=== PATIENT | female | born 1985 | race Caucasian/White ===

== ENCOUNTER 2021-05-18 22:40 | Inpatient (IN) | payer MEDICARE, MEDICAID, SELFPAY ==
--- NOTE | 2021-05-18 | ECG_ITS ---
Test Reason : OVERDOSE Blood Pressure : / mmHG Vent. Rate : 070 BPM Atrial Rate : 070 BPM P-R Int : 198 ms QRS Dur : 094 ms QT Int : 384 ms P-R-T Axes : 040 030 023 degrees QTc Int : 414 ms Normal sinus rhythm RSR' or QR pattern in V1 suggests right ventricular conduction delay Otherwise normal ECG When compared with ECG of 16-FEB-2019 22:33, T wave amplitude has increased in Anterolateral leads Heart rate has decreased Referred By: Generic ED Physician Electronically Signed By:CANDY ISBELL MD
[2021-05-18 22:43] VITALS: BP 220/140; PULSE 78; PULSE 89; RESP 22; TEMP 36.6; O2SAT 98; BMI 40.2
--- NOTE | 2021-05-18 23:40 | ED.OVERDOSE ---
HPI - Overdose General Chief Complaint: Overdose <ARUNA Soriano Last Filed: 05/19/21 02:18> Stated Complaint: OD/SI <ARUNA Soriano Last Filed: 05/19/21 02:18> Time Seen by Provider: 05/18/21 23:38 <ARUNA Soriano Last Filed: 05/19/21 02:18> Source: EMS <ARUNA Soriano Last Filed: 05/19/21 02:18> Mode of arrival: EMS <ARUNA Soriano Last Filed: 05/19/21 02:18> Limitations: altered mental status <ARUNA Soriano Last Filed: 05/19/21 02:18> History of Present Illness HPI Narrative: Patient is now altered, but she came in alert, and stated she took 15 tablets of 1 mg clonazepam, 12 tablets of 0.3 clonidine, and 20 tablets of 4 mg 10 as a John. She may have taken it 1-2 hours prior to arrival. Patient was altered and I could not get any history from her during my exam <ARUNA Soriano Last Filed: 05/19/21 02:18> MD complaint: intentional overdose <ARUNA Soriano Last Filed: 05/19/21 02:18> Onset (ago): unknown <ARUNA Soriano Last Filed: 05/19/21 02:18> Related Data Home Medications: Previous Rx's Medication Instructions Recorded oxybutynin chloride 10 mg 10 mg PO DAILY 90 Days #90 tab 07/21/20 tablet,extended release 24 hr <ARUNA Soriano Last Filed: 05/19/21 02:18> Allergies/Adverse Reactions: Allergies Allergy/AdvReac Type Severity Reaction Status Date / Time Sulfa (Sulfonamide Allergy Unknown RASH Unverified 03/17/20 17:13 Antibiotics) [SULFA (SULFONAMIDE ANTIBIOTICS)] Sulfa drugs Allergy Unknown Uncoded 08/04/19 00:00 <ARUNA Soriano Last Filed: 05/19/21 02:18> Review of Systems Review of Systems: Patient is obtunded <ARUNA Soriano Last Filed: 05/19/21 02:18> Yes Unobtainable due to mental status <ARUNA Soriano - Last Filed: 05/19/21 02:18> PMFSH Social History Social History: Social History Patient Tobacco Use Status: Current everyday Tobacco user Use of substances other than those prescribed or required for medical reasons: No Substance Use Type: Marijuana Substance Use Frequency: Daily Advance Directives: No Advance Directives Information Provided: No <ARUNA Soriano - Last Filed: 05/19/21 02:18> Physical Exam Vital Signs: Vital Signs: Last Vital Signs Temp 98 F 05/19/21 00:00 Pulse 60 05/19/21 08:11 Resp 18 05/19/21 03:41 BP 130/79 05/19/21 03:41 Pulse Ox 92 05/19/21 08:11 Body Mass Index 40.2 <ARUNA Soriano - Last Filed: 05/19/21 02:18> Vital Signs: Last Vital Signs Temp 98 F 05/19/21 00:00 Pulse 60 05/19/21 08:11 Resp 18 05/19/21 03:41 BP 130/79 05/19/21 03:41 Pulse Ox 92 05/19/21 08:11 Body Mass Index 40.2 <Bernard Cervantes MD - Last Filed: 05/19/21 08:41> Const: General: patient obtunded <ARUNA Soriano - Last Filed: 05/19/21 02:18> Nutritional Appearance: obese morbidly obese <ARUNA Soriano - Last Filed: 05/19/21 02:18> Orientation/consciousness: patient obtunded <ARUNA Soriano - Last Filed: 05/19/21 02:18> Limitations: altered mental status <ARUNA Soriano - Last Filed: 05/19/21 02:18> HENMT: Head: Yes normal to inspection <ARUNA Soriano - Last Filed: 05/19/21 02:18> Mouth: Normal oral and palatal mucosa present <ARUNA Soriano - Last Filed: 05/19/21 02:18> Eyes: Other: Pupils are sluggish, eyes are fixed. <ARUNA Soriano - Last Filed: 05/19/21 02:18> Chest: Chest palpation & inspection: normal inspection of the chest <ARUNA Soriano - Last Filed: 05/19/21 02:18> Resp: Effort & Inspection: normal respiratory effort <ARUNA Soriano - Last Filed: 05/19/21 02:18> Auscultation: clear to auscultation bilaterally, no crackles, no rales, no rhonchi and no wheezes <ARUNA Soriano - Last Filed: 05/19/21 02:18> Cardio: Rate: regular rate <ARUNA Soriano - Last Filed: 05/19/21 02:18> Rhythm: regular rhythm <ARUNA Soriano - Last Filed: 05/19/21 02:18> GI: Palpation (GI): Soft to palpation <ARUNA Sroiano - Last Filed: 05/19/21 02:18> Percussion: Yes normal to percussion <ARUNA Soriano - Last Filed: 05/19/21 02:18> Skin: General skin exam: no rashes or lesions noted <ARUNA Soriano - Last Filed: 05/19/21 02:18> Neuro: General: patient obtunded <ARUNA Soriano - Last Filed: 05/19/21 02:18> Pupils: Sluggish: bilateral <ARUNA Soriano Last Filed: 05/19/21 02:18> Course Course Course Narrative: 35-year-old female presents with overdose on clonazepam, clonidine, and tizanidine. On my exam, patient is having periods of apnea, has sluggish pupils, does not respond to a sternal rub. Discussed with poison control, who stated the both clonidine and tizanidine can both cause hypotension. Patient may become bradycardic from clonidine. They suggested trying Narcan, which we did to no effect. Stated patient should be on cardiac monitoring, and if she decompensates we could intubate her. Patient's EKG shows normal sinus, patient has stable vitals. Labs show patient has a glucose of 4 await, potassium 5.8. Gave 10 units of insulin. Patient is a leukocytosis of 18, pH on VBG of 7.48, negative for EtOH, elevated liver function tests. Salicylate and acetaminophen levels still pending. Signed patient out to Dr. Cervantes. <ARUNA Soriano Last Filed: 05/19/21 02:18> MDM - Overdose Lab Data Result diagrams: : 05/19/21 00:16 05/19/21 00:56 <ARUNA Soriano - Last Filed: 05/19/21 02:18> Labs: Lab Results 05/19/21 05/19/21 05/19/21 Range/Units 00:16 00:19 00:34 WBC 18.0 H (4.8-10.8) X10*3/uL RBC 4.98 (4.20-5.50) X10*6/uL Hgb 15.8 (12.0-16.0) g/dl Hct 46.3 (37.0-47.0) % MCV 93.0 (80.0-98.0) fL MCH 31.7 (27.0-33.0) pg MCHC 34.1 (31.0-35.0) g/dl RDW 12.9 (11.0-16.0) % Plt Count 273 (160-400) X10*3/uL MPV 10.3 (9.4-12.3) fL Immature Gran % (Auto) 1.7 H (0.0-0.4) % Neut % (Auto) 82.2 H (45-73) % Lymph % (Auto) 10.5 L (20-40) % [place] % (Auto) 5.0 (2-11) % Eos % (Auto) 0.2 (0-4) % Baso % (Auto) 0.4 (0-2) % Lymph # (Auto) 1.9 (1.2-4.9) X10*3/uL [place] # (Auto) 0.9 (0.1-1.2) X10*3/uL Eos # (Auto) 0.0 (0.0-0.4) X10*3/uL Baso # (Auto) 0.1 (0.0-0.2) X10*3/uL Abs Immat Gran (auto) 0.31 H (0.00-0.03) X10*3/uL Absolute Neuts (auto) 14.8 H (2.0-8.3) x10*3/uL Absolute Nucleated RBC 0.000 (0.0-0.012) X10*3/uL Nucleated RBC % (auto) 0.0 (0.0-0.2) /100WBC VBG pH 7.48 H (7.32-7.43) VBG pCO2 27 mmHg VBG pO2 70 mmHg VBG HCO3 20 L (22-26) mmol/L VBG O2 Saturation 95.0 % VBG Base Excess -1.0 mmol/L Sodium (135-145) mmol/L Potassium (3.3-5.1) mmol/L Chloride (96-108) mmol/L Carbon Dioxide (22-29) mmol/L Anion Gap (12-20) BUN (9-16) mg/dL Creatinine (0.5-1.4) mg/dL Estim Creat Clear Calc Estimated GFR POC Glucose (60-115) mg/dL Random Glucose (60-115) mg/dL Calcium (8.4-10.2) mg/dL Total Bilirubin (0.0-1.0) mg/dL AST (5-31) U/L ALT (0-31) U/L Alkaline Phosphatase (39-117) U/L Total Protein (6.5-8.0) g/dL Albumin (3.5-5.0) g/dL Urine Color Urine Appearance Urine pH (5.0-8.0) Ur Specific [place] (1.005-1.025) Urine Protein (NEG-TRACE) MG/DL Urine Glucose (UA) (NEG) MG/DL Urine Ketones (NEG) MG/DL Urine Blood (NEG) Urine Nitrite (NEG) Ur Leukocyte Esterase (NEG) Urine RBC (0) /HPF Urine WBC (0-4) /HPF Ur Squamous Epith Cells /LPF Urine Bacteria /LPF Urine Test (NEGATIVE) Salicylates (15-30) mg/dL Urine Opiates Screen (Not Detect) Urine Fentanyl Screen (Not Detect) Acetaminophen (<30) mcg/mL Ur Barbiturates Screen (Not Detect) Ur Phencyclidine Scrn (Not Detect) Ur Amphetamines Screen (Not Detect) U Benzodiazepines Scrn (Not Detect) Urine Cocaine Screen (Not Detect) U Marijuana (THC) Screen (Not Detect) Ethyl Alcohol < 10 mg/dL Acetone, Qual (Negative) 05/19/21 05/19/21 05/19/21 Range/Units 00:56 03:19 03:19 WBC (4.8-10.8) X10*3/uL RBC (4.20-5.50) X10*6/uL Hgb (12.0-16.0) g/dl Hct (37.0-47.0) % MCV (80.0-98.0) fL MCH (27.0-33.0) pg MCHC (31.0-35.0) g/dl RDW (11.0-16.0) % Plt Count (160-400) X10*3/uL MPV (9.4-12.3) fL Immature Gran % (Auto) (0.0-0.4) % Neut % (Auto) (45-73) % Lymph % (Auto) (20-40) % [place] % (Auto) (2-11) % Eos % (Auto) (0-4) % Baso % (Auto) (0-2) % Lymph # (Auto) (1.2-4.9) X10*3/uL [place] # (Auto) (0.1-1.2) X10*3/uL Eos # (Auto) (0.0-0.4) X10*3/uL Baso # (Auto) (0.0-0.2) X10*3/uL Abs Immat Gran (auto) (0.00-0.03) X10*3/uL Absolute Neuts (auto) (2.0-8.3) x10*3/uL Absolute Nucleated RBC (0.0-0.012) X10*3/uL Nucleated RBC % (auto) (0.0-0.2) /100WBC VBG pH (7.32-7.43) VBG pCO2 mmHg VBG pO2 mmHg VBG HCO3 (22-26) mmol/L VBG O2 Saturation % VBG Base Excess mmol/L Sodium 132 L (135-145) mmol/L Potassium 5.8 H (3.3-5.1) mmol/L Chloride 102 (96-108) mmol/L Carbon Dioxide 20 L (22-29) mmol/L Anion Gap 16 (12-20) BUN 8 L (9-16) mg/dL Creatinine 0.99 (0.5-1.4) mg/dL Estim Creat Clear Calc 86.7 Estimated GFR > 60 POC Glucose (60-115) mg/dL Random Glucose 408 H* (60-115) mg/dL Calcium 8.5 (8.4-10.2) mg/dL Total Bilirubin 0.7 (0.0-1.0) mg/dL AST 113 H (5-31) U/L ALT 115 H (0-31) U/L Alkaline Phosphatase 74 (39-117) U/L Total Protein 7.1 (6.5-8.0) g/dL Albumin 4.2 (3.5-5.0) g/dL Urine Color YELLOW Urine Appearance CLEAR Urine pH 7.0 (5.0-8.0) Ur Specific [place] 1.015 (1.005-1.025) Urine Protein 1+ H (NEG-TRACE) MG/DL Urine Glucose (UA) >=1000 H (NEG) MG/DL Urine Ketones 15 (NEG) MG/DL Urine Blood NEG (NEG) Urine Nitrite NEG (NEG) Ur Leukocyte Esterase NEG (NEG) Urine RBC 1-4 (0) /HPF Urine WBC 5-9 H (0-4) /HPF Ur Squamous Epith Cells 1+ /LPF Urine Bacteria 2+ /LPF Urine Test (NEGATIVE) Salicylates < 5.0 L (15-30) mg/dL Urine Opiates Screen Not Detected (Not Detect) Urine Fentanyl Screen Not Detected (Not Detect) Acetaminophen < 1 (<30) mcg/mL Ur Barbiturates Screen Not Detected (Not Detect) Ur Phencyclidine Scrn Not Detected (Not Detect) Ur Amphetamines Screen Not Detected (Not Detect) U Benzodiazepines Scrn Not Detected (Not Detect) Urine Cocaine Screen Not Detected (Not Detect) U Marijuana (THC) Screen POSITIVE H (Not Detect) Ethyl Alcohol mg/dL Acetone, Qual Negative (Negative) 05/19/21 05/19/21 Range/Units 03:19 03:31 WBC (4.8-10.8) X10*3/uL RBC (4.20-5.50) X10*6/uL Hgb (12.0-16.0) g/dl Hct (37.0-47.0) % MCV (80.0-98.0) fL MCH (27.0-33.0) pg MCHC (31.0-35.0) g/dl RDW (11.0-16.0) % Plt Count (160-400) X10*3/uL MPV (9.4-12.3) fL Immature Gran % (Auto) (0.0-0.4) % Neut % (Auto) (45-73) % Lymph % (Auto) (20-40) % [place] % (Auto) (2-11) % Eos % (Auto) (0-4) % Baso % (Auto) (0-2) % Lymph # (Auto) (1.2-4.9) X10*3/uL [place] # (Auto) (0.1-1.2) X10*3/uL Eos # (Auto) (0.0-0.4) X10*3/uL Baso # (Auto) (0.0-0.2) X10*3/uL Abs Immat Gran (auto) (0.00-0.03) X10*3/uL Absolute Neuts (auto) (2.0-8.3) x10*3/uL Absolute Nucleated RBC (0.0-0.012) X10*3/uL Nucleated RBC % (auto) (0.0-0.2) /100WBC VBG pH (7.32-7.43) VBG pCO2 mmHg VBG pO2 mmHg VBG HCO3 (22-26) mmol/L VBG O2 Saturation % VBG Base Excess mmol/L Sodium (135-145) mmol/L Potassium (3.3-5.1) mmol/L Chloride (96-108) mmol/L Carbon Dioxide (22-29) mmol/L Anion Gap (12-20) BUN (9-16) mg/dL Creatinine (0.5-1.4) mg/dL Estim Creat Clear Calc Estimated GFR POC Glucose 328 H (60-115) mg/dL Random Glucose (60-115) mg/dL Calcium (8.4-10.2) mg/dL Total Bilirubin (0.0-1.0) mg/dL AST (5-31) U/L ALT (0-31) U/L Alkaline Phosphatase (39-117) U/L Total Protein (6.5-8.0) g/dL Albumin (3.5-5.0) g/dL Urine Color Urine Appearance Urine pH (5.0-8.0) Ur Specific [place] (1.005-1.025) Urine Protein (NEG-TRACE) MG/DL Urine Glucose (UA) (NEG) MG/DL Urine Ketones (NEG) MG/DL Urine Blood (NEG) Urine Nitrite (NEG) Ur Leukocyte Esterase (NEG) Urine RBC (0) /HPF Urine WBC (0-4) /HPF Ur Squamous Epith Cells /LPF Urine Bacteria /LPF Urine Test NEGATIVE (NEGATIVE) Salicylates (15-30) mg/dL Urine Opiates Screen (Not Detect) Urine Fentanyl Screen (Not Detect) Acetaminophen (<30) mcg/mL Ur Barbiturates Screen (Not Detect) Ur Phencyclidine Scrn (Not Detect) Ur Amphetamines Screen (Not Detect) U Benzodiazepines Scrn (Not Detect) Urine Cocaine Screen (Not Detect) U Marijuana (THC) Screen (Not Detect) Ethyl Alcohol mg/dL Acetone, Qual (Negative) <ARUNA Soriano - Last Filed: 05/19/21 02:18> Lab Results 05/19/21 05/19/21 05/19/21 Range/Units 00:16 00:19 00:34 WBC 18.0 H (4.8-10.8) X10*3/uL RBC 4.98 (4.20-5.50) X10*6/uL Hgb 15.8 (12.0-16.0) g/dl Hct 46.3 (37.0-47.0) % MCV 93.0 (80.0-98.0) fL MCH 31.7 (27.0-33.0) pg MCHC 34.1 (31.0-35.0) g/dl RDW 12.9 (11.0-16.0) % Plt Count 273 (160-400) X10*3/uL MPV 10.3 (9.4-12.3) fL Immature Gran % (Auto) 1.7 H (0.0-0.4) % Neut % (Auto) 82.2 H (45-73) % Lymph % (Auto) 10.5 L (20-40) % [place] % (Auto) 5.0 (2-11) % Eos % (Auto) 0.2 (0-4) % Baso % (Auto) 0.4 (0-2) % Lymph # (Auto) 1.9 (1.2-4.9) X10*3/uL [place] # (Auto) 0.9 (0.1-1.2) X10*3/uL Eos # (Auto) 0.0 (0.0-0.4) X10*3/uL Baso # (Auto) 0.1 (0.0-0.2) X10*3/uL Abs Immat Gran (auto) 0.31 H (0.00-0.03) X10*3/uL Absolute Neuts (auto) 14.8 H (2.0-8.3) x10*3/uL Absolute Nucleated RBC 0.000 (0.0-0.012) X10*3/uL Nucleated RBC % (auto) 0.0 (0.0-0.2) /100WBC VBG pH 7.48 H (7.32-7.43) VBG pCO2 27 mmHg VBG pO2 70 mmHg VBG HCO3 20 L (22-26) mmol/L VBG O2 Saturation 95.0 % VBG Base Excess -1.0 mmol/L Sodium (135-145) mmol/L Potassium (3.3-5.1) mmol/L Chloride (96-108) mmol/L Carbon Dioxide (22-29) mmol/L Anion Gap (12-20) BUN (9-16) mg/dL Creatinine (0.5-1.4) mg/dL Estim Creat Clear Calc Estimated GFR POC Glucose (60-115) mg/dL Random Glucose (60-115) mg/dL Calcium (8.4-10.2) mg/dL Total Bilirubin (0.0-1.0) mg/dL AST (5-31) U/L ALT (0-31) U/L Alkaline Phosphatase (39-117) U/L Total Protein (6.5-8.0) g/dL Albumin (3.5-5.0) g/dL Urine Color Urine Appearance Urine pH (5.0-8.0) Ur Specific [place] (1.005-1.025) Urine Protein (NEG-TRACE) MG/DL Urine Glucose (UA) (NEG) MG/DL Urine Ketones (NEG) MG/DL Urine Blood (NEG) Urine Nitrite (NEG) Ur Leukocyte Esterase (NEG) Urine RBC (0) /HPF Urine WBC (0-4) /HPF Ur Squamous Epith Cells /LPF Urine Bacteria /LPF Urine Test (NEGATIVE) Salicylates (15-30) mg/dL Urine Opiates Screen (Not Detect) Urine Fentanyl Screen (Not Detect) Acetaminophen (<30) mcg/mL Ur Barbiturates Screen (Not Detect) Ur Phencyclidine Scrn (Not Detect) Ur Amphetamines Screen (Not Detect) U Benzodiazepines Scrn (Not Detect) Urine Cocaine Screen (Not Detect) U Marijuana (THC) Screen (Not Detect) Ethyl Alcohol < 10 mg/dL Acetone, Qual (Negative) 05/19/21 05/19/21 05/19/21 Range/Units 00:56 03:19 03:19 WBC (4.8-10.8) X10*3/uL RBC (4.20-5.50) X10*6/uL Hgb (12.0-16.0) g/dl Hct (37.0-47.0) % MCV (80.0-98.0) fL MCH (27.0-33.0) pg MCHC (31.0-35.0) g/dl RDW (11.0-16.0) % Plt Count (160-400) X10*3/uL MPV (9.4-12.3) fL Immature Gran % (Auto) (0.0-0.4) % Neut % (Auto) (45-73) % Lymph % (Auto) (20-40) % [place] % (Auto) (2-11) % Eos % (Auto) (0-4) % Baso % (Auto) (0-2) % Lymph # (Auto) (1.2-4.9) X10*3/uL [place] # (Auto) (0.1-1.2) X10*3/uL Eos # (Auto) (0.0-0.4) X10*3/uL Baso # (Auto) (0.0-0.2) X10*3/uL Abs Immat Gran (auto) (0.00-0.03) X10*3/uL Absolute Neuts (auto) (2.0-8.3) x10*3/uL Absolute Nucleated RBC (0.0-0.012) X10*3/uL Nucleated RBC % (auto) (0.0-0.2) /100WBC VBG pH (7.32-7.43) VBG pCO2 mmHg VBG pO2 mmHg VBG HCO3 (22-26) mmol/L VBG O2 Saturation % VBG Base Excess mmol/L Sodium 132 L (135-145) mmol/L Potassium 5.8 H (3.3-5.1) mmol/L Chloride 102 (96-108) mmol/L Carbon Dioxide 20 L (22-29) mmol/L Anion Gap 16 (12-20) BUN 8 L (9-16) mg/dL Creatinine 0.99 (0.5-1.4) mg/dL Estim Creat Clear Calc 86.7 Estimated GFR > 60 POC Glucose (60-115) mg/dL Random Glucose 408 H* (60-115) mg/dL Calcium 8.5 (8.4-10.2) mg/dL Total Bilirubin 0.7 (0.0-1.0) mg/dL AST 113 H (5-31) U/L ALT 115 H (0-31) U/L Alkaline Phosphatase 74 (39-117) U/L Total Protein 7.1 (6.5-8.0) g/dL Albumin 4.2 (3.5-5.0) g/dL Urine Color YELLOW Urine Appearance CLEAR Urine pH 7.0 (5.0-8.0) Ur Specific [place] 1.015 (1.005-1.025) Urine Protein 1+ H (NEG-TRACE) MG/DL Urine Glucose (UA) >=1000 H (NEG) MG/DL Urine Ketones 15 (NEG) MG/DL Urine Blood NEG (NEG) Urine Nitrite NEG (NEG) Ur Leukocyte Esterase NEG (NEG) Urine RBC 1-4 (0) /HPF Urine WBC 5-9 H (0-4) /HPF Ur Squamous Epith Cells 1+ /LPF Urine Bacteria 2+ /LPF Urine Test (NEGATIVE) Salicylates < 5.0 L (15-30) mg/dL Urine Opiates Screen Not Detected (Not Detect) Urine Fentanyl Screen Not Detected (Not Detect) Acetaminophen < 1 (<30) mcg/mL Ur Barbiturates Screen Not Detected (Not Detect) Ur Phencyclidine Scrn Not Detected (Not Detect) Ur Amphetamines Screen Not Detected (Not Detect) U Benzodiazepines Scrn Not Detected (Not Detect) Urine Cocaine Screen Not Detected (Not Detect) U Marijuana (THC) Screen POSITIVE H (Not Detect) Ethyl Alcohol mg/dL Acetone, Qual Negative (Negative) 05/19/21 05/19/21 Range/Units 03:19 03:31 WBC (4.8-10.8) X10*3/uL RBC (4.20-5.50) X10*6/uL Hgb (12.0-16.0) g/dl Hct (37.0-47.0) % MCV (80.0-98.0) fL MCH (27.0-33.0) pg MCHC (31.0-35.0) g/dl RDW (11.0-16.0) % Plt Count (160-400) X10*3/uL MPV (9.4-12.3) fL Immature Gran % (Auto) (0.0-0.4) % Neut % (Auto) (45-73) % Lymph % (Auto) (20-40) % [place] % (Auto) (2-11) % Eos % (Auto) (0-4) % Baso % (Auto) (0-2) % Lymph # (Auto) (1.2-4.9) X10*3/uL [place] # (Auto) (0.1-1.2) X10*3/uL Eos # (Auto) (0.0-0.4) X10*3/uL Baso # (Auto) (0.0-0.2) X10*3/uL Abs Immat Gran (auto) (0.00-0.03) X10*3/uL Absolute Neuts (auto) (2.0-8.3) x10*3/uL Absolute Nucleated RBC (0.0-0.012) X10*3/uL Nucleated RBC % (auto) (0.0-0.2) /100WBC VBG pH (7.32-7.43) VBG pCO2 mmHg VBG pO2 mmHg VBG HCO3 (22-26) mmol/L VBG O2 Saturation % VBG Base Excess mmol/L Sodium (135-145) mmol/L Potassium (3.3-5.1) mmol/L Chloride (96-108) mmol/L Carbon Dioxide (22-29) mmol/L Anion Gap (12-20) BUN (9-16) mg/dL Creatinine (0.5-1.4) mg/dL Estim Creat Clear Calc Estimated GFR POC Glucose 328 H (60-115) mg/dL Random Glucose (60-115) mg/dL Calcium (8.4-10.2) mg/dL Total Bilirubin (0.0-1.0) mg/dL AST (5-31) U/L ALT (0-31) U/L Alkaline Phosphatase (39-117) U/L Total Protein (6.5-8.0) g/dL Albumin (3.5-5.0) g/dL Urine Color Urine Appearance Urine pH (5.0-8.0) Ur Specific [place] (1.005-1.025) Urine Protein (NEG-TRACE) MG/DL Urine Glucose (UA) (NEG) MG/DL Urine Ketones (NEG) MG/DL Urine Blood (NEG) Urine Nitrite (NEG) Ur Leukocyte Esterase (NEG) Urine RBC (0) /HPF Urine WBC (0-4) /HPF Ur Squamous Epith Cells /LPF Urine Bacteria /LPF Urine Test NEGATIVE (NEGATIVE) Salicylates (15-30) mg/dL Urine Opiates Screen (Not Detect) Urine Fentanyl Screen (Not Detect) Acetaminophen (<30) mcg/mL Ur Barbiturates Screen (Not Detect) Ur Phencyclidine Scrn (Not Detect) Ur Amphetamines Screen (Not Detect) U Benzodiazepines Scrn (Not Detect) Urine Cocaine Screen (Not Detect) U Marijuana (THC) Screen (Not Detect) Ethyl Alcohol mg/dL Acetone, Qual (Negative) <Bernard Cervantes MD - Last Filed: 05/19/21 08:41> ECG Data Interpretation: EKG shows normal sinus at a rate of 70, DC interval 190, QRS 94, QTC 414, no ST elevations or depressions no T-wave changes. <ARUNA Soriano - Last Filed: 05/19/21 02:18> Discharge Plan Discharge Clinical Impression: Drug overdose <ARUNA Soriano - Last Filed: 05/19/21 02:18> Prescriptions: No Action oxybutynin chloride 10 mg tablet extended release 24hr 10 mg PO DAILY 90 Days Qty: 90 RF: 2 <ARUNA Soriano - Last Filed: 05/19/21 02:18>
[2021-05-19] VITALS (9 sets, daily range): BP systolic 116–198; BP diastolic 70–112; PULSE 60–110; RESP 14–18; TEMP 36.6–36.8; O2SAT 92–97
--- NOTE | 2021-05-19 00:04 | PC.NURSE ---
Pt. is altered. Initially in and out of consciousness but was arousable to light sternal rub or painful stimuli. Difficulty maintaining awakened state. Now she is not arousable even to a hard sternal rub. Maintaining airway. VSS. Dr. lucas in at bedside evaluating patient. Placed on ETCO2 and supplemental O2.
[2021-05-19] MEDS: 0.9 % Sodium Chloride 1,000 ML 999 ML IV (00:23)
[2021-05-19 00:24] LABS: MANUAL DIFF FLAG NO
[2021-05-19] MEDS: Naloxone HCl Nasal 4 MG SPRAY NOSTRILALT (00:24)
[2021-05-19 00:28] LABS: Venous Blood Gas Refer to POC result
[2021-05-19 00:29] LABS: VBG HCO3 20 mmol/L (22-26); VBG pCO2 27 mmHg; VBG pH 7.48 (7.32-7.43); VBG pO2 70 mmHg
[2021-05-19 00:29] LABS: Basophils Absolute Auto 0.1 X10*3/uL (0.0-0.2); Basophils Percent Auto 0.4 % (0-2); Eosinophils Percent Auto 0.2 % (0-4); Hematocrit 46.3 % (37.0-47.0); Hemoglobin 15.8 g/dl (12.0-16.0); Imm Gran Abs Auto 0.31 X10*3/uL (0.00-0.03); Imm Gran Pct Auto 1.7 % (0.0-0.4); Lymphocytes Absolute Auto 1.9 X10*3/uL (1.2-4.9); Lymphocytes Percent Auto 10.5 % (20-40); Mean Corpuscular HGB Conc 34.1 g/dl (31.0-35.0); Mean Corpuscular Hemoglobin 31.7 pg (27.0-33.0); Mean Platelet Volume 10.3 fL (9.4-12.3); Monocytes Absolute Auto 0.9 X10*3/uL (0.1-1.2); Neutrophils Absolute Auto 14.8 x10*3/uL (2.0-8.3); Neutrophils Percent Auto 82.2 % (45-73); Platelet Count 273 X10*3/uL (160-400); Red Blood Count 4.98 X10*6/uL (4.20-5.50); Red Cell Distribution Width 12.9 % (11.0-16.0)
[2021-05-19 00:52] LABS: Ethanol < 10 mg/dL
[2021-05-19 01:30] LABS: Acetone, serum QL Negative (Negative)
[2021-05-19 01:33] LABS: Alanine Aminotransferase 115 U/L (0-31); Albumin Level 4.2 g/dL (3.5-5.0); Alkaline Phosphatase 74 U/L (39-117); Anion Gap 16 (12-20); Aspartate Amino Transferase 113 U/L (5-31); Bilirubin Total 0.7 mg/dL (0.0-1.0); Blood Urea Nitrogen 8 mg/dL (9-16); Calcium 8.5 mg/dL (8.4-10.2); Carbon Dioxide 20 mmol/L (22-29); Chloride 102 mmol/L (96-108); Creatinine Clr Calc Pharmacy 86.7; Estimated Glomerular Filt Rate > 60; Glucose Random 408 mg/dL (60-115); Potassium 5.8 mmol/L (3.3-5.1); Sodium 132 mmol/L (135-145); Total Protein 7.1 g/dL (6.5-8.0)
--- NOTE | 2021-05-19 01:35 | ECG_ITS ---
Test Reason : OD REPEAT Blood Pressure : / mmHG Vent. Rate : 065 BPM Atrial Rate : 065 BPM P-R Int : 226 ms QRS Dur : 092 ms QT Int : 416 ms P-R-T Axes : 045 041 028 degrees QTc Int : 432 ms Sinus rhythm with 1st degree A-V block RSR' or QR pattern in V1 suggests right ventricular conduction delay Abnormal ECG When compared with ECG of 18-MAY-2021 22:53, with 1st degree A-V block is new Referred By: Melly Cabrales Electronically Signed By:CANDY ISBELL MD
[2021-05-19 02:17] LABS: Salicylate < 5.0 mg/dL (15-30)
[2021-05-19 02:30] LABS: Acetaminophen LAB < 1 mcg/mL (<30)
[2021-05-19 03:28] LABS: Appearance Urine CLEAR; Color Urine YELLOW; Glucose Urine UA >=1000 MG/DL (NEG); Leukocyte Esterase Urine NEG (NEG); Nitrite Urine NEG (NEG); Specific Gravity - Urine 1.015 (1.005-1.025); UACC Culture Trigger NO; Urine Blood NEG (NEG); Urine Ketones 15 MG/DL (NEG); Urine Protein 1+ MG/DL (NEG-TRACE)
[2021-05-19 03:30] LABS: UPreg QC Valid YES; Urine Pregnancy NEGATIVE (NEGATIVE)
[2021-05-19 03:33] LABS: UACC CULT YES
[2021-05-19 03:34] LABS: Bacteria Urine 2+ /LPF; Squamous Epithelial Cell Urine 1+ /LPF
[2021-05-19 03:35] LABS: Glucose, Whole Blood 328 mg/dL (60-115)
--- NOTE | 2021-05-19 03:48 | PC.NURSE ---
Took over assignment at this time medication. Notified provider. Will medicate per new order.
[2021-05-19 03:51] LABS: Amphetamine Screen Urine Not Detected (Not Detect); Barbiturates, Urine Not Detected (Not Detect); Benzodiazepines Screen Urine Not Detected (Not Detect); Cannabinoid Screen Urine POSITIVE (Not Detect); Cocaine Screen Urine Not Detected (Not Detect); Fentanyl, urine Not Detected (Not Detect); Opiate Screen Urine Not Detected (Not Detect); Phencyclidine Screen Urine Not Detected (Not Detect)
[2021-05-19] MEDS: Insulin Lispro 100 UNIT/ML 3 ML VIAL 10 UNIT SUBCUT (04:04)
--- NOTE | 2021-05-19 04:10 | PC.NURSE ---
pt a&o, denies sob or chest pain. pt report she was not trying to harm herself just took too much medication. Medicated per Mar
[2021-05-19 09:44] LABS: Alanine Aminotransferase 108 U/L (0-31); Albumin Level 4.2 g/dL (3.5-5.0); Alkaline Phosphatase 71 U/L (39-117); Anion Gap 15 (12-20); Aspartate Amino Transferase 77 U/L (5-31); Bilirubin Direct 0.3 mg/dL (0.0-0.5); Bilirubin Total 0.8 mg/dL (0.0-1.0); Blood Urea Nitrogen 11 mg/dL (9-16); Calcium 8.8 mg/dL (8.4-10.2); Carbon Dioxide 21 mmol/L (22-29); Chloride 104 mmol/L (96-108); Creatinine Clr Calc Pharmacy 74.6; Estimated Glomerular Filt Rate 53; Glucose Random 258 mg/dL (60-115); Magnesium 2.3 mg/dL (1.6-2.6); Sodium 136 mmol/L (135-145)
[2021-05-19 10:16] LABS: Prothrombin Time 11.6 SEC (9.9-13.0)
[2021-05-19 13:56] LABS: IDNOW Serial# 08D9AD1C
[2021-05-19 13:57] LABS: COVID-19 Test Negative (Negative)
[2021-05-19] MEDS: LORazepam 1 MG TABLET 2 MG PO (17:17)
[2021-05-19 19:18] LABS: Glucose, Whole Blood 252 mg/dL (60-115)
--- NOTE | 2021-05-19 19:48 | PHA.MEDREC ---
Pharmacy Consult ? Medication Reconciliation Pharmacy has completed the medication reconciliation. Patient no longer takes abilify or lamictal. She takes 2 clonazepam, 2 clonidine, and 2 zanaflex at bedtime, not three like her RX says. Her Paxil dose is now 50mg. She does take both prazosin and terazosin. Thanks Eric Quezada Pharm D
[2021-05-19] MEDS: TiZANidine HCL 4 MG TABLET 8 MG PO (21:04)
[2021-05-19] MEDS: Prazosin HCL 1 MG CAPSULE PO (21:05)
[2021-05-19] MEDS: cloNIDine HCL 0.2 MG TABLET PO (21:05)
[2021-05-19] MEDS: Ibuprofen 800 MG TABLET PO (21:05)
[2021-05-19] MEDS: clonazePAM 1 MG TABLET 2 MG PO (21:05)
--- NOTE | 2021-05-19 22:50 | PC.NURSE ---
Patient signed CV, complaint with medication, upset over not being able to see her boyfriend who is out in main ED receiving treatment for OD, pending admission to , patient is currently calm, will continue to monitor.
[2021-05-20 00:20] VITALS: BMI 39.9
[2021-05-20] MEDS: hydrOXYzine HCL 50 MG TABLET PO ×2 (01:03→21:10)
--- NOTE | 2021-05-20 01:58 | PC.ADMIT ---
THIS IS THE FIRST BEHAVIORAL HEALTH INPATIENT ADMISSION FOR THIS 35 YEAR OLD FEMALE. LEGAL CV AND SUBMITTED 3 DAY NOTICE. PT WAS A REFERRAL TO [facility] BY THE CARE TEAM VIA THE ER. NURSE TO NURSE, COLLATERAL INFORMATION OBTAINED PRIOR TO ADMISSION. REPORTS PAST HX OF DETOX SHE HAD USED HEROIN IN THE PAST BUT REPORTS NO USE AND NO USE OF METHADONE IN 5 YEARS. ''I SMOKE POT, NOTHING ELSE, NO ALCOHOL'' HAS PCP AND BEHAVIORAL HEALTH PROVIDERS THRU [facility]. S/P OD ON MEDICATIONS BUT DENIES INTAKE SI ATTEMPT ''I HAD AN ARGUMENT WITH MY BOYFRIEND AND IT WAS IMPULSIVE'' ''I DON'T WANT TO '' DENIES RELATIONSHIP ABUSIVE ''WE BOTH HAVE OUR OWN ISSUES'' DOES IDENTIFY HOME SITUATION DIFFICULT. REPORTS THAT SHE CARES FOR HER FATHER ''I'M A DADDY'S GIRL'' AND STATES HER RELATIONSHIP WITH HER MOTHER IS ''HARD'' STATES OF MANY FAMILY MEMBERS THAT LIVE IN THE HOUSE, THAT IT IS CHAOTIC AND DOES NOT HAVE ANY PRIVACY. REPORTS BEING ON A SECTION 8 HOUSING LIST. PARENTS ARE TOGETHER AND BOYFRIEND LIVES AT HOME WITH HER WITH MULTIPLE OTHER FAMILY MEMBERS. DENIES ANY PAST SI ATTEMPTS. PRESENTS ANXIOUS AND CONCERNED ABOUT BOYFRIEND HE IS IN THE EMERGENCY ROOM REPORTING AFTER SHE TOOK MEDICATIONS IMPULSIVELY THAT HE TOOK THE REST OF HER MEDICATIONS ALSO. MEDICAL HX: FIBROMAYALGIA. SAFETY TOOL COMPLETED. TREATMENT PLAN INITIATED.
--- NOTE | 2021-05-20 04:02 | PC.ADMIT ---
MEDICAL ISSUES-TAKES JANUVIA. NOT SURE IF CAN BE BROUGHT INTO HOSPITAL. POC ORDERED QID DUE TO ELEVATED POC WHEN IN ER.
[2021-05-20 06:00] VITALS: BP 164/93; PULSE 98; RESP 20; TEMP 36.7; O2SAT 95
[2021-05-20 08:33] LABS: Estimated Average Glucose 226 mg/dL; Hemoglobin A1c % 9.5 %
[2021-05-20 08:35] LABS: Glucose, Whole Blood 234 mg/dL (60-115)
[2021-05-20] MEDS: PARoxetine HCL 10 MG TABLET PO (08:35)
[2021-05-20] MEDS: Ibuprofen 800 MG TABLET PO ×2 (08:35→15:36)
[2021-05-20] MEDS: SITagliptin Phosphate 50 MG TABLET PO (08:36)
[2021-05-20] MEDS: glipiZIDE XL 5 MG TAB.ER.24 PO (08:36)
[2021-05-20] MEDS: PARoxetine HCL 40 MG TABLET PO (08:36)
[2021-05-20 08:37] LABS: Cholesterol 302 mg/dL; HDL Cholesterol 27 mg/dL; LDL Cholesterol Calculated 201 mg/dl; Magnesium 2.2 mg/dL (1.6-2.6); Triglycerides 370 mg/dL
[2021-05-20] MEDS: Ergocalciferol (Vitamin D2) 1,250 MCG CAPSULE 1250 MCG PO (08:38)
[2021-05-20 08:57] LABS: Free T4 (Free Thyroxine) 0.88 ng/dL (0.71-1.85); Thyroid Stimulating Hormone 3.61 uIU/mL (0.32-4.0)
[2021-05-20 09:54] VITALS: BP 164/93; PULSE 98
[2021-05-20] MEDS: Doxazosin Mesylate 1 MG TABLET PO (09:54)
[2021-05-20] MEDS: Loratadine 10 MG TABLET PO (09:57)
--- NOTE | 2021-05-20 10:06 | P.HPPS_ITS ---
HPI Date of Service: 05/20/21 Chief Complaint: Overdose Sources of Information: patient interviewed, chart reviewed and crisis/core team assessment reviewed HPI Subjective Notes: Miranda Warning and Conditional Voluntary Guardianship: No Narrative: Patient is a 35 yo female with reported PTSD and Bipolar Disorder II. She came in on 05/18 at 11 PM after she OD'ed on 15 x 1 mg Klonopin and 12 Clonidine 0.3 mg and 20 x Tizanidine 4 mg after an argument with her significant other. He also OD'd and was sent to the ED. They were arguing and were grabbing bottles from each other and overdosing at the same time. Her mother overheard the argument and called 911. She denies her intent was to . She reported it was impulsive and out of anger. She was altered on arrival. patient was having periods of apnea, has sluggish pupils, did not respond to a sternal rub.? ED discussed with poison control, who stated the both clonidine and tizanidine can both cause hypotension.? Patient may become bradycardic from clonidine.? They suggested trying Narcan, which ED did to no effect.? Stated patient should be on cardiac monitoring, and if she decompensates we could intubate her.She was monitored in the ED and transferred to inpatient psychiatry. She reports increasingly irritable mood, sleep disruption, and mood is up and down . She is frustrated with her home living situation. The house where she lives in crowded. Also has PTSD symptoms. Denies SI now. Signed a 3 day. Past Psychiatric History: Treatment through [facility]. Has therapist and psychiatric practitioner. Denies prior inpatient Medical Evaluation Reviewed: Yes [facility] Medical History (Updated 05/20/21 @ 18:19 by Waldemar Urias MD) Bipolar 2 disorder Family History: Bipolar and depression in the family Social History: Lives in a crowded home. Has a fiance. On SSI for fibromyalgia, arthritis and slipped disc. 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 No children. Substance History: History of Heroin dependence in remission. Off methadone for years. Trauma History: Yes in childhood but details deferred. Diagnostics Vital Signs (24Hr): Vital Signs - 24 hr 05/19/21 18:00 05/19/21 21:05 05/19/21 22:38 Temperature 97.8 F Pulse Rate 110 H 98 Respiratory Rate 16 Blood Pressure 198/106 H 189/112 H 139/82 Pulse Oximetry 97 05/19/21 23:37 05/20/21 06:00 05/20/21 09:54 Temperature 98.2 F 98.1 F Pulse Rate 74 98 98 Respiratory Rate 20 Blood Pressure 128/77 164/93 H 164/93 H Pulse Oximetry 96 95 Body Mass Index 39.9 Labs Results: 05/19/21 00:16 05/19/21 09:07 Labs: Laboratory Results - last 48 hr 05/19/21 05/19/21 05/19/21 00:16 00:19 00:34 WBC 18.0 H RBC 4.98 Hgb 15.8 Hct 46.3 MCV 93.0 MCH 31.7 MCHC 34.1 RDW 12.9 Plt Count 273 MPV 10.3 Immature Gran % (Auto) 1.7 H Neut % (Auto) 82.2 H Lymph % (Auto) 10.5 L [place] % (Auto) 5.0 Eos % (Auto) 0.2 Baso % (Auto) 0.4 Lymph # (Auto) 1.9 [place] # (Auto) 0.9 Eos # (Auto) 0.0 Baso # (Auto) 0.1 Abs Immat Gran (auto) 0.31 H Absolute Neuts (auto) 14.8 H Absolute Nucleated RBC 0.000 Nucleated RBC % (auto) 0.0 PT INR VBG pH 7.48 H VBG pCO2 27 VBG pO2 70 VBG HCO3 20 L VBG O2 Saturation 95.0 VBG Base Excess -1.0 Sodium Potassium Chloride Carbon Dioxide Anion Gap BUN Creatinine Estim Creat Clear Calc Estimated GFR POC Glucose Random Glucose Estimat Average Glucose Hemoglobin A1c % Calcium Magnesium Total Bilirubin Direct Bilirubin AST ALT Alkaline Phosphatase Total Protein Albumin Triglycerides Cholesterol LDL Cholesterol, Calc HDL Cholesterol TSH Free T4 Urine Color Urine Appearance Urine pH Ur Specific [place] Urine Protein Urine Glucose (UA) Urine Ketones Urine Blood Urine Nitrite Ur Leukocyte Esterase Urine RBC Urine WBC Ur Squamous Epith Cells Urine Bacteria Urine Test Salicylates Urine Opiates Screen Urine Fentanyl Screen Acetaminophen Ur Barbiturates Screen Ur Phencyclidine Scrn Ur Amphetamines Screen U Benzodiazepines Scrn Urine Cocaine Screen U Marijuana (THC) Screen Ethyl Alcohol < 10 Acetone, Qual COVID-19 ([facility]) COVID-19 Clin Com 05/19/21 05/19/21 05/19/21 00:56 03:19 03:19 WBC RBC Hgb Hct MCV MCH MCHC RDW Plt Count MPV Immature Gran % (Auto) Neut % (Auto) Lymph % (Auto) [place] % (Auto) Eos % (Auto) Baso % (Auto) Lymph # (Auto) [place] # (Auto) Eos # (Auto) Baso # (Auto) Abs Immat Gran (auto) Absolute Neuts (auto) Absolute Nucleated RBC Nucleated RBC % (auto) PT INR VBG pH VBG pCO2 VBG pO2 VBG HCO3 VBG O2 Saturation VBG Base Excess Sodium 132 L Potassium 5.8 H Chloride 102 Carbon Dioxide 20 L Anion Gap 16 BUN 8 L Creatinine 0.99 Estim Creat Clear Calc 86.7 Estimated GFR > 60 POC Glucose Random Glucose 408 H* Estimat Average Glucose Hemoglobin A1c % Calcium 8.5 Magnesium Total Bilirubin 0.7 Direct Bilirubin AST 113 H ALT 115 H Alkaline Phosphatase 74 Total Protein 7.1 Albumin 4.2 Triglycerides Cholesterol LDL Cholesterol, Calc HDL Cholesterol TSH Free T4 Urine Color YELLOW Urine Appearance CLEAR Urine pH 7.0 Ur Specific [place] 1.015 Urine Protein 1+ H Urine Glucose (UA) >=1000 H Urine Ketones 15 Urine Blood NEG Urine Nitrite NEG Ur Leukocyte Esterase NEG Urine RBC 1-4 Urine WBC 5-9 H Ur Squamous Epith Cells 1+ Urine Bacteria 2+ Urine Test Salicylates < 5.0 L Urine Opiates Screen Not Detected Urine Fentanyl Screen Not Detected Acetaminophen < 1 Ur Barbiturates Screen Not Detected Ur Phencyclidine Scrn Not Detected Ur Amphetamines Screen Not Detected U Benzodiazepines Scrn Not Detected Urine Cocaine Screen Not Detected U Marijuana (THC) Screen POSITIVE H Ethyl Alcohol Acetone, Qual Negative COVID-19 ([facility]) COVID-19 Clin Com 05/19/21 05/19/21 05/19/21 03:19 03:31 09:07 WBC RBC Hgb Hct MCV MCH MCHC RDW Plt Count MPV Immature Gran % (Auto) Neut % (Auto) Lymph % (Auto) [place] % (Auto) Eos % (Auto) Baso % (Auto) Lymph # (Auto) [place] # (Auto) Eos # (Auto) Baso # (Auto) Abs Immat Gran (auto) Absolute Neuts (auto) Absolute Nucleated RBC Nucleated RBC % (auto) PT INR VBG pH VBG pCO2 VBG pO2 VBG HCO3 VBG O2 Saturation VBG Base Excess Sodium 136 Potassium 4.0 D Chloride 104 Carbon Dioxide 21 L Anion Gap 15 BUN 11 Creatinine 1.15 Estim Creat Clear Calc 74.6 Estimated GFR 53 POC Glucose 328 H Random Glucose 258 H Estimat Average Glucose Hemoglobin A1c % Calcium 8.8 Magnesium 2.3 Total Bilirubin 0.8 Direct Bilirubin 0.3 AST 77 H ALT 108 H Alkaline Phosphatase 71 Total Protein 7.0 Albumin 4.2 Triglycerides Cholesterol LDL Cholesterol, Calc HDL Cholesterol TSH Free T4 Urine Color Urine Appearance Urine pH Ur Specific [place] Urine Protein Urine Glucose (UA) Urine Ketones Urine Blood Urine Nitrite Ur Leukocyte Esterase Urine RBC Urine WBC Ur Squamous Epith Cells Urine Bacteria Urine Test NEGATIVE Salicylates Urine Opiates Screen Urine Fentanyl Screen Acetaminophen Ur Barbiturates Screen Ur Phencyclidine Scrn Ur Amphetamines Screen U Benzodiazepines Scrn Urine Cocaine Screen U Marijuana (THC) Screen Ethyl Alcohol Acetone, Qual COVID-19 (LARISA) COVID-Bumpr 05/19/21 05/19/21 05/19/21 10:05 13:35 19:14 WBC RBC Hgb Hct MCV MCH MCHC RDW Plt Count MPV Immature Gran % (Auto) Neut % (Auto) Lymph % (Auto) [place] % (Auto) Eos % (Auto) Baso % (Auto) Lymph # (Auto) [place] # (Auto) Eos # (Auto) Baso # (Auto) Abs Immat Gran (auto) Absolute Neuts (auto) Absolute Nucleated RBC Nucleated RBC % (auto) PT 11.6 INR 1.0 VBG pH VBG pCO2 VBG pO2 VBG HCO3 VBG O2 Saturation VBG Base Excess Sodium Potassium Chloride Carbon Dioxide Anion Gap BUN Creatinine Estim Creat Clear Calc Estimated GFR POC Glucose 252 H Random Glucose Estimat Average Glucose Hemoglobin A1c % Calcium Magnesium Total Bilirubin Direct Bilirubin AST ALT Alkaline Phosphatase Total Protein Albumin Triglycerides Cholesterol LDL Cholesterol, Calc HDL Cholesterol TSH Free T4 Urine Color Urine Appearance Urine pH Ur Specific [place] Urine Protein Urine Glucose (UA) Urine Ketones Urine Blood Urine Nitrite Ur Leukocyte Esterase Urine RBC Urine WBC Ur Squamous Epith Cells Urine Bacteria Urine Test Salicylates Urine Opiates Screen Urine Fentanyl Screen Acetaminophen Ur Barbiturates Screen Ur Phencyclidine Scrn Ur Amphetamines Screen U Benzodiazepines Scrn Urine Cocaine Screen U Marijuana (THC) Screen Ethyl Alcohol Acetone, Qual COVID-19 ([facility]ARISA) Negative COVID-Bubbly Com See Note 05/20/21 05/20/21 05/20/21 07:46 07:46 08:33 WBC RBC Hgb Hct MCV MCH MCHC RDW Plt Count MPV Immature Gran % (Auto) Neut % (Auto) Lymph % (Auto) [place] % (Auto) Eos % (Auto) Baso % (Auto) Lymph # (Auto) [place] # (Auto) Eos # (Auto) Baso # (Auto) Abs Immat Gran (auto) Absolute Neuts (auto) Absolute Nucleated RBC Nucleated RBC % (auto) PT INR VBG pH VBG pCO2 VBG pO2 VBG HCO3 VBG O2 Saturation VBG Base Excess Sodium Potassium Chloride Carbon Dioxide Anion Gap BUN Creatinine Estim Creat Clear Calc Estimated GFR POC Glucose 234 H Random Glucose Estimat Average Glucose 226 Hemoglobin A1c % 9.5 Calcium Magnesium 2.2 Total Bilirubin Direct Bilirubin AST ALT Alkaline Phosphatase Total Protein Albumin Triglycerides 370 Cholesterol 302 LDL Cholesterol, Calc 201 HDL Cholesterol 27 TSH 3.61 Free T4 0.88 Urine Color Urine Appearance Urine pH Ur Specific [place] Urine Protein Urine Glucose (UA) Urine Ketones Urine Blood Urine Nitrite Ur Leukocyte Esterase Urine RBC Urine WBC Ur Squamous Epith Cells Urine Bacteria Urine Test Salicylates Urine Opiates Screen Urine Fentanyl Screen Acetaminophen Ur Barbiturates Screen Ur Phencyclidine Scrn Ur Amphetamines Screen U Benzodiazepines Scrn Urine Cocaine Screen U Marijuana (THC) Screen Ethyl Alcohol Acetone, Qual COVID-19 ([facility]ISA) COVID-19 Clin Com Meds/Allergies Meds Home Medications Acetaminophen (Acetaminophen 325 Mg Tablet) 650 mg PO Q6H PRN PRN Reason: Headache/Pain Mild Scale (1-3) Al Hydroxide/Mg Hydroxide (Magnesium Hydrox/Alum Hydrox 30 Ml Oral.Susp) 30 ml PO Q6H PRN PRN Reason: Heartburn/Nausea Clonazepam (Clonazepam 1 Mg Tablet) 2 mg PO BEDTIME [facility] Last Admin: 05/19/21 21:05 Dose: 2 mg Documented by: Clonidine HCl (Clonidine Hcl 0.2 Mg Tablet) 0.2 mg PO BEDTIME [facility]; Protocol Last Admin: 05/19/21 21:05 Dose: 0.2 mg Documented by: Doxazosin Mesylate (Doxazosin Mesylate 1 Mg Tablet) 1 mg PO DAILY [facility] Last Admin: 05/20/21 09:54 Dose: 1 mg Documented by: Ergocalciferol (Ergocalciferol (Vitamin D2) 1,250 Mcg Capsule) 1,250 mcg PO SA [facility] Last Admin: 05/20/21 08:38 Dose: 1,250 mcg Documented by: Glipizide (Glipizide Xl 5 Mg Tab.Er.24) 5 mg PO DAILY [facility] Last Admin: 05/20/21 08:36 Dose: 5 mg Documented by: Glucose (Glucose Gel 15 Gm Gel..Gram.) 15 gm PO Q15M PRN; Protocol PRN Reason: per Hypoglycemia Standing Ord. Hydroxyzine HCl (Hydroxyzine Hcl 50 Mg Tablet) 25 - 50 mg PO TID PRN PRN Reason: anxiety Last Admin: 05/20/21 01:03 Dose: 50 mg Documented by: Hydroxyzine HCl (Hydroxyzine Hcl 25 Mg Tablet) 25 mg PO Q6H PRN PRN Reason: Anxiety Ibuprofen (Ibuprofen 800 Mg Tablet) 800 mg PO TID [facility] Last Admin: 05/20/21 15:36 Dose: 800 mg Documented by: Insulin Human Lispro (Insulin Lispro 100 Unit/Ml 3 Ml Vial) 0 unit SUBCUT QIDACHS [facility]; Protocol Stop: 05/21/21 09:57 Last Admin: 05/20/21 17:43 Dose: 8 unit Documented by: Loratadine (Loratadine 10 Mg Tablet) 10 mg PO DAILY [facility] Last Admin: 05/20/21 09:57 Dose: 10 mg Documented by: Magnesium Hydroxide (Milk Of Magnesia 30 Ml Oral.Susp) 30 ml PO DAILY PRN PRN Reason: Constipation Nicotine Polacrilex (Nicotine Polacrilex 2 Mg Gum) 2 mg BUCCAL Q2H PRN PRN Reason: Nicotine Cravings Oxybutynin Chloride (Oxybutynin Chloride Er 5 Mg Tab.Er.24) 10 mg PO DAILY [facility] Last Admin: 05/20/21 08:35 Dose: 10 mg Documented by: Paroxetine HCl (Paroxetine Hcl 10 Mg Tablet) 10 mg PO DAILY [facility] Last Admin: 05/20/21 08:35 Dose: 10 mg Documented by: Paroxetine HCl (Paroxetine Hcl 40 Mg Tablet) 40 mg PO DAILY [facility] Last Admin: 05/20/21 08:36 Dose: 40 mg Documented by: Prazosin HCl (Prazosin Hcl 1 Mg Capsule) 1 mg PO BEDTIME [facility]; Protocol Last Admin: 05/19/21 21:05 Dose: 1 mg Documented by: Sitagliptin Phosphate (Sitagliptin Phosphate 50 Mg Tablet) 50 mg PO DAILY [facility] Last Admin: 05/20/21 08:36 Dose: 50 mg Documented by: Sodium Chloride (Sodium Chloride 0.65 % Nasal 44 Ml Sprbtl) 1 spray NOSTRIL-B Q1H PRN PRN Reason: nasal dryness Last Admin: 05/20/21 11:20 Dose: 1 spray Documented by: Tizanidine HCl (Tizanidine Hcl 4 Mg Tablet) 8 mg PO BEDTIME [facility] Last Admin: 05/19/21 21:04 Dose: 8 mg Documented by: Trazodone HCl (Trazodone Hcl 50 Mg Tablet) 50 mg PO BEDTIME PRN PRN Reason: Insomnia Valacyclovir HCl (Valacycyclovir Hcl 500 Mg Tablet) 500 mg PO DAILY [facility] Last Admin: 05/20/21 08:35 Dose: 500 mg Documented by: Allergies Allergies Allergy/AdvReac Type Severity Reaction Status Date / Time Sulfa (Sulfonamide Allergy Unknown RASH Verified 05/19/21 18:42 Antibiotics) [SULFA (SULFONAMIDE ANTIBIOTICS)] Mental Status Exam Mental Status Exam Patient Appearance: Appropriate Patient Orientation: Person, Place, Time and Situation Level of Consciousness: Awake and Appropriate Patient Behavior: Appropriate and Cooperative Mood Description: Calm and Constricted Affect Description: Calm and Constricted Patient Cognition Impaired: No Ability to Follow Directions: Excellent Speech Pattern: Clear and Coherent Memory Description: Intact Hallucinations: None Delusions: Not Present Thought Process: Intact Thought Content: positive for Intact Depressive Symptoms: Increased Irritability and Unhappiness Abnormal Motor Activity Signs and Symptoms: Tic (Says she takes clonidine because she developed a permanent tic from Trazodone. I will be on it for life ) Judgement: Fair Assessment & Plan Assessment & Plan (1) Bipolar 2 disorder: Status: Acute Code(s): F31.81 - Bipolar II disorder Assessment and Plan: 35 yo with a hx of bipolar disorder II comes in after an impulsive OD on medications in the context of an argument with her fiance aroiund the living situation. They live in a very crowded house and there have been some additional peoplle that started living there. Her BF is also in the ED with an OD. When they were arguing her BF took the medications from her and OD'd as well. Patient denies a suicide attempt and is regretfl of this. She says it was an impulsive act. Plan: - Admit for safety and observation - Milieu therapy - No change in psychotropics. - Collaterals - Disposition planning Patient educated on: diagnosis and medication risk/benefits Informed Consent: understands Reason for continued inpatient stay Substantial Risk for: harm to self
[2021-05-20] MEDS: Sodium Chloride 0.65 % Nasal 44 ML SPRBTL 1 SPRAY NOSTRIL-B (11:20)
[2021-05-20 12:54] LABS: Glucose, Whole Blood 278 mg/dL (60-115)
[2021-05-20] MEDS: Insulin Lispro 100 UNIT/ML 3 ML VIAL SUBCUT ×3 (13:06→21:08)
[2021-05-20 17:26] LABS: Glucose, Whole Blood 259 mg/dL (60-115)
[2021-05-20 20:55] LABS: Glucose, Whole Blood 240 mg/dL (60-115)
[2021-05-20 21:10] VITALS: BP 175/107; PULSE 106; RESP 18; TEMP 37.1; O2SAT 95
[2021-05-20] MEDS: TiZANidine HCL 4 MG TABLET 8 MG PO (21:10)
[2021-05-20 21:11] VITALS: BP 175/107; PULSE 106
[2021-05-20] MEDS: Prazosin HCL 1 MG CAPSULE PO (21:11)
[2021-05-20] MEDS: cloNIDine HCL 0.2 MG TABLET PO (21:11)
[2021-05-20] MEDS: clonazePAM 1 MG TABLET 2 MG PO (21:12)
[2021-05-21 06:00] VITALS: BP 179/102; PULSE 99; RESP 18; TEMP 36.6; O2SAT 96
[2021-05-21 09:14] LABS: Glucose, Whole Blood 238 mg/dL (60-115)
[2021-05-21] MEDS: Insulin Lispro 100 UNIT/ML 3 ML VIAL SUBCUT ×4 (09:16→20:36)
[2021-05-21] MEDS: Sodium Chloride 0.65 % Nasal 44 ML SPRBTL 1 SPRAY NOSTRIL-B (09:16)
[2021-05-21 09:24] VITALS: BP 179/102; PULSE 99
[2021-05-21] MEDS: Ibuprofen 800 MG TABLET PO ×2 (09:24→16:16)
[2021-05-21] MEDS: Doxazosin Mesylate 1 MG TABLET PO (09:24)
[2021-05-21] MEDS: PARoxetine HCL 40 MG TABLET PO (09:26)
[2021-05-21] MEDS: SITagliptin Phosphate 50 MG TABLET PO (09:26)
[2021-05-21] MEDS: glipiZIDE XL 5 MG TAB.ER.24 PO (09:26)
[2021-05-21] MEDS: PARoxetine HCL 10 MG TABLET PO (09:26)
[2021-05-21] MEDS: Loratadine 10 MG TABLET PO (09:27)
[2021-05-21 12:57] LABS: Glucose, Whole Blood 277 mg/dL (60-115)
--- NOTE | 2021-05-21 15:25 | HO.PSYCHPN ---
Subjective Subjective Date of Service: 05/21/21 Reason For Visit: Overdose Interim History: Patient seen and discussed. Patient had a visit from her mom. She says she is feeling better. With a smile she says: There are now 6 people in the house not 9 . Looks relieved with this news that her mom shared today. She continues to consistently deny SI. Engaged on the unit. Bright affect. Medication Compliance: Yes Side effects from medications: No Attending Groups: Yes Review of Systems Acute medical concerns: No Medical Review of Systems: unchanged Mental Status Exam Mental Status Exam Patient Appearance: Appropriate Patient Orientation: Person, Place, Time and Situation Level of Consciousness: Awake and Appropriate Patient Behavior: Appropriate and Cooperative Mood Description: Calm and Appropriate Affect Description: Calm and Appropriate Patient Cognition Impaired: No Ability to Follow Directions: Excellent Speech Pattern: Clear and Coherent Memory Description: Intact Hallucinations: None Delusions: Not Present Thought Process: Intact and Linear Thought Content: positive for Intact Judgement: Fair Diagnostics Vital Signs (24Hr): Vital Signs - 24 hr 05/21/21 06:00 05/21/21 09:24 05/21/21 18:00 Temperature 97.8 F 97.6 F Pulse Rate 99 99 95 Respiratory Rate 18 18 Blood Pressure 179/102 H 179/102 H 180/100 H Pulse Oximetry 96 97 05/21/21 20:35 Temperature Pulse Rate 77 Respiratory Rate Blood Pressure 180/100 H Pulse Oximetry Body Mass Index 39.9 Labs Results: 05/19/21 00:16 05/19/21 09:07 Labs: Laboratory Results - last 48 hr 05/20/21 05/20/21 05/20/21 07:46 07:46 08:33 POC Glucose 234 H Estimat Average Glucose 226 Hemoglobin A1c % 9.5 Magnesium 2.2 Triglycerides 370 Cholesterol 302 LDL Cholesterol, Calc 201 HDL Cholesterol 27 TSH 3.61 Free T4 0.88 05/20/21 05/20/21 05/20/21 12:49 17:22 20:48 POC Glucose 278 H 259 H 240 H Estimat Average Glucose Hemoglobin A1c % Magnesium Triglycerides Cholesterol LDL Cholesterol, Calc HDL Cholesterol TSH Free T4 05/21/21 05/21/21 05/21/21 09:12 12:53 17:30 POC Glucose 238 H 277 H 248 H Estimat Average Glucose Hemoglobin A1c % Magnesium Triglycerides Cholesterol LDL Cholesterol, Calc HDL Cholesterol TSH Free T4 05/21/21 20:26 POC Glucose 262 H Estimat Average Glucose Hemoglobin A1c % Magnesium Triglycerides Cholesterol LDL Cholesterol, Calc HDL Cholesterol TSH Free T4 Medications Medications Current Medications Acetaminophen (Acetaminophen 325 Mg Tablet) 650 mg PO Q6H PRN PRN Reason: Headache/Pain Mild Scale (1-3) Al Hydroxide/Mg Hydroxide (Magnesium Hydrox/Alum Hydrox 30 Ml Oral.Susp) 30 ml PO Q6H PRN PRN Reason: Heartburn/Nausea Clonazepam (Clonazepam 1 Mg Tablet) 2 mg PO BEDTIME [facility] Last Admin: 05/21/21 20:37 Dose: 2 mg Documented by: Clonidine HCl (Clonidine Hcl 0.2 Mg Tablet) 0.2 mg PO BEDTIME [facility]; Protocol Last Admin: 05/21/21 20:37 Dose: 0.2 mg Documented by: Doxazosin Mesylate (Doxazosin Mesylate 1 Mg Tablet) 1 mg PO DAILY [facility] Last Admin: 05/21/21 09:24 Dose: 1 mg Documented by: Ergocalciferol (Ergocalciferol (Vitamin D2) 1,250 Mcg Capsule) 1,250 mcg PO SA [facility] Last Admin: 05/20/21 08:38 Dose: 1,250 mcg Documented by: Glipizide (Glipizide Xl 5 Mg Tab.Er.24) 5 mg PO DAILY [facility] Last Admin: 05/21/21 09:26 Dose: 5 mg Documented by: Glucose (Glucose Gel 15 Gm Gel..Gram.) 15 gm PO Q15M PRN; Protocol PRN Reason: per Hypoglycemia Standing Ord. Hydroxyzine HCl (Hydroxyzine Hcl 50 Mg Tablet) 25 - 50 mg PO TID PRN PRN Reason: anxiety Last Admin: 05/21/21 20:36 Dose: 50 mg Documented by: Ibuprofen (Ibuprofen 800 Mg Tablet) 800 mg PO TID [facility] Last Admin: 05/21/21 20:37 Dose: Not Given Documented by: Insulin Human Lispro (Insulin Lispro 100 Unit/Ml 3 Ml Vial) 0 unit SUBCUT QIDACHS [facility]; Protocol Last Admin: 05/21/21 20:36 Dose: 6 unit Documented by: Loratadine (Loratadine 10 Mg Tablet) 10 mg PO DAILY [facility] Last Admin: 05/21/21 09:27 Dose: 10 mg Documented by: Magnesium Hydroxide (Milk Of Magnesia 30 Ml Oral.Susp) 30 ml PO DAILY PRN PRN Reason: Constipation Nicotine Polacrilex (Nicotine Polacrilex 2 Mg Gum) 2 mg BUCCAL Q2H PRN PRN Reason: Nicotine Cravings Oxybutynin Chloride (Oxybutynin Chloride Er 5 Mg Tab.Er.24) 10 mg PO DAILY [facility] Last Admin: 05/21/21 09:23 Dose: 10 mg Documented by: Paroxetine HCl (Paroxetine Hcl 10 Mg Tablet) 10 mg PO DAILY [facility] Last Admin: 05/21/21 09:26 Dose: 10 mg Documented by: Paroxetine HCl (Paroxetine Hcl 40 Mg Tablet) 40 mg PO DAILY [facility] Last Admin: 05/21/21 09:26 Dose: 40 mg Documented by: Prazosin HCl (Prazosin Hcl 1 Mg Capsule) 1 mg PO BEDTIME [facility]; Protocol Last Admin: 05/21/21 20:35 Dose: 1 mg Documented by: Sitagliptin Phosphate (Sitagliptin Phosphate 50 Mg Tablet) 50 mg PO DAILY [facility] Last Admin: 05/21/21 09:26 Dose: 50 mg Documented by: Sodium Chloride (Sodium Chloride 0.65 % Nasal 44 Ml Sprbtl) 1 spray NOSTRIL-B Q1H PRN PRN Reason: nasal dryness Last Admin: 05/21/21 09:16 Dose: 1 spray Documented by: Tizanidine HCl (Tizanidine Hcl 4 Mg Tablet) 8 mg PO BEDTIME [facility] Last Admin: 05/21/21 20:35 Dose: 8 mg Documented by: Trazodone HCl (Trazodone Hcl 50 Mg Tablet) 50 mg PO BEDTIME PRN PRN Reason: Insomnia Valacyclovir HCl (Valacycyclovir Hcl 500 Mg Tablet) 500 mg PO DAILY [facility] Last Admin: 05/21/21 09:24 Dose: 500 mg Documented by: Allergies Allergies Allergy/AdvReac Type Severity Reaction Status Date / Time Sulfa (Sulfonamide Allergy Unknown RASH Verified 05/19/21 18:42 Antibiotics) [SULFA (SULFONAMIDE ANTIBIOTICS)] Assessment & Plan Assessment & Plan (1) Bipolar 2 disorder: Status: Acute Code(s): F31.81 - Bipolar II disorder Assessment and Plan: 35 yo with a hx of bipolar disorder II comes in after an impulsive OD on medications in the context of an argument with her fiance aroiund the living situation. They live in a very crowded house and there have been some additional peoplle that started living there. Her BF is also in the ED with an OD. When they were arguing her BF took the medications from her and OD'd as well. Patient denies a suicide attempt and is regretfl of this. She says it was an impulsive act. Plan: - Admit for safety and observation - Milieu therapy - No change in psychotropics. - Collaterals - Disposition planning I spent minutes with the patient and/or on the patient floor today, greater than?50% of which was spent counseling/coordinating care. Reason for contiued inpatient stay Substantial Risk for: harm to self
[2021-05-21 17:34] LABS: Glucose, Whole Blood 248 mg/dL (60-115)
[2021-05-21 18:00] VITALS: BP 180/100; PULSE 95; RESP 18; TEMP 36.4; O2SAT 97
[2021-05-21 20:29] LABS: Glucose, Whole Blood 262 mg/dL (60-115)
[2021-05-21 20:35] VITALS: BP 180/100; PULSE 77
[2021-05-21] MEDS: TiZANidine HCL 4 MG TABLET 8 MG PO (20:35)
[2021-05-21] MEDS: Prazosin HCL 1 MG CAPSULE PO (20:35)
[2021-05-21] MEDS: hydrOXYzine HCL 50 MG TABLET PO (20:36)
[2021-05-21] MEDS: clonazePAM 1 MG TABLET 2 MG PO (20:37)
[2021-05-21] MEDS: cloNIDine HCL 0.2 MG TABLET PO (20:37)
[2021-05-22 05:12] LABS: Folate 12.5 ng/mL (> or = 4.0); Vitamin B12 221 pg/mL (200-900)
[2021-05-22 06:00] VITALS: BP 177/90; PULSE 82; RESP 18; TEMP 36.6; O2SAT 95
[2021-05-22 08:03] VITALS: BP 173/93; PULSE 88; RESP 18; TEMP 36.7; O2SAT 95
[2021-05-22] MEDS: glipiZIDE XL 5 MG TAB.ER.24 PO (08:08)
[2021-05-22] MEDS: PARoxetine HCL 10 MG TABLET PO (08:08)
[2021-05-22] MEDS: Ibuprofen 800 MG TABLET PO ×2 (08:09→15:26)
[2021-05-22] MEDS: SITagliptin Phosphate 50 MG TABLET PO (08:09)
[2021-05-22] MEDS: PARoxetine HCL 40 MG TABLET PO (08:09)
[2021-05-22 08:10] VITALS: BP 173/93; PULSE 88
[2021-05-22] MEDS: Loratadine 10 MG TABLET PO (08:10)
[2021-05-22] MEDS: Doxazosin Mesylate 1 MG TABLET PO (08:10)
[2021-05-22 08:52] LABS: Glucose, Whole Blood 221 mg/dL (60-115)
[2021-05-22] MEDS: Insulin Lispro 100 UNIT/ML 3 ML VIAL SUBCUT (09:15)
--- NOTE | 2021-05-22 12:23 | P.PNPSI_ITS ---
Subjective Subjective Date of Service: 05/22/21 Reason For Visit: Overdose Subjective Notes: Conditional Voluntary and 3 Day Interim History: Pt adamantly denies that OD was suicide attempt. Pt admits that she had argument with fioscar and her mother. She states she wanted to sleep but not kill herself. She denies suicidal ideation. She reports having good therapeu tic relationship with her correction psychotherapist and hopes to go home soon. She reports sleeping and eating well. She reports both father and mother came to see her, and according to pt they are not concern about pt's safety. Pt reports she is in agreement with having her mother manage her medications and put them in lock box. Per nursing, pt has been visible in the unit, social with select peers. No behavioral concerns. sBP>170- pt reports used ot be on lisinopril but it was stopped by her PCP as BP stable. She does agree to take amlodipine now and follow up with PCP. Medication Compliance: Yes Side effects from medications: No Attending Groups: Yes Review of Systems Acute medical concerns: No Mental Status Exam Mental Status Exam Narrative: Appearance: casually groomed, fair hygiene in NAD Behavior: cooperative psychomotor:no agitation or retardation noted Speech:clear, normal rate/rhythm/volume, spontaneous Thought process:linear Thought content:no signs of psychosis, future oriented looking forward to see family. Mood: better Affect: congruent, non labile SI:denies- plan or intent. HI:none VH/AH:none Delusions:none Insight/judgment:fair x 2. Memory/cog: alert, oriented x 3. grossly intact to conversational testing. Diagnostics Vital Signs (24Hr): Vital Signs - 24 hr 05/21/21 18:00 05/21/21 20:35 05/22/21 06:00 Temperature 97.6 F 97.8 F Pulse Rate 95 77 82 Respiratory Rate 18 18 Blood Pressure 180/100 H 180/100 H 177/90 H Pulse Oximetry 97 95 05/22/21 08:03 05/22/21 08:10 Temperature 98.1 F Pulse Rate 88 88 Respiratory Rate 18 Blood Pressure 173/93 H 173/93 H Pulse Oximetry 95 Body Mass Index 39.9 Labs Results: 05/19/21 00:16 05/19/21 09:07 Labs: Laboratory Results - last 48 hr 05/20/21 05/20/21 05/20/21 07:46 12:49 17:22 POC Glucose 278 H 259 H Vitamin B12 221 Folate 12.5 05/20/21 05/21/21 05/21/21 20:48 09:12 12:53 POC Glucose 240 H 238 H 277 H Vitamin B12 Folate 05/21/21 05/21/21 05/22/21 17:30 20:26 08:45 POC Glucose 248 H 262 H 221 H Vitamin B12 Folate Medications Medications Current Medications Acetaminophen (Acetaminophen 325 Mg Tablet) 650 mg PO Q6H PRN PRN Reason: Headache/Pain Mild Scale (1-3) Al Hydroxide/Mg Hydroxide (Magnesium Hydrox/Alum Hydrox 30 Ml Oral.Susp) 30 ml PO Q6H PRN PRN Reason: Heartburn/Nausea Clonazepam (Clonazepam 1 Mg Tablet) 2 mg PO BEDTIME [facility] Last Admin: 05/21/21 20:37 Dose: 2 mg Documented by: Clonidine HCl (Clonidine Hcl 0.2 Mg Tablet) 0.2 mg PO BEDTIME [facility]; Protocol Last Admin: 05/21/21 20:37 Dose: 0.2 mg Documented by: Doxazosin Mesylate (Doxazosin Mesylate 1 Mg Tablet) 1 mg PO DAILY [facility] Last Admin: 05/22/21 08:10 Dose: 1 mg Documented by: Ergocalciferol (Ergocalciferol (Vitamin D2) 1,250 Mcg Capsule) 1,250 mcg PO SA [facility] Last Admin: 05/20/21 08:38 Dose: 1,250 mcg Documented by: Glipizide (Glipizide Xl 5 Mg Tab.Er.24) 5 mg PO DAILY [facility] Last Admin: 05/22/21 08:08 Dose: 5 mg Documented by: Glucose (Glucose Gel 15 Gm Gel..Gram.) 15 gm PO Q15M PRN; Protocol PRN Reason: per Hypoglycemia Standing Ord. Hydroxyzine HCl (Hydroxyzine Hcl 50 Mg Tablet) 25 - 50 mg PO TID PRN PRN Reason: anxiety Last Admin: 05/21/21 20:36 Dose: 50 mg Documented by: Ibuprofen (Ibuprofen 800 Mg Tablet) 800 mg PO TID [facility] Last Admin: 05/22/21 08:09 Dose: 800 mg Documented by: Insulin Human Lispro (Insulin Lispro 100 Unit/Ml 3 Ml Vial) 0 unit SUBCUT QIDACHS [facility]; Protocol Last Admin: 05/22/21 09:15 Dose: 4 unit Documented by: Loratadine (Loratadine 10 Mg Tablet) 10 mg PO DAILY [facility] Last Admin: 05/22/21 08:10 Dose: 10 mg Documented by: Magnesium Hydroxide (Milk Of Magnesia 30 Ml Oral.Susp) 30 ml PO DAILY PRN PRN Reason: Constipation Nicotine Polacrilex (Nicotine Polacrilex 2 Mg Gum) 2 mg BUCCAL Q2H PRN PRN Reason: Nicotine Cravings Oxybutynin Chloride (Oxybutynin Chloride Er 5 Mg Tab.Er.24) 10 mg PO DAILY [facility] Last Admin: 05/22/21 08:07 Dose: 10 mg Documented by: Paroxetine HCl (Paroxetine Hcl 10 Mg Tablet) 10 mg PO DAILY [facility] Last Admin: 05/22/21 08:08 Dose: 10 mg Documented by: Paroxetine HCl (Paroxetine Hcl 40 Mg Tablet) 40 mg PO DAILY [facility] Last Admin: 05/22/21 08:09 Dose: 40 mg Documented by: Prazosin HCl (Prazosin Hcl 1 Mg Capsule) 1 mg PO BEDTIME [facility]; Protocol Last Admin: 05/21/21 20:35 Dose: 1 mg Documented by: Sitagliptin Phosphate (Sitagliptin Phosphate 50 Mg Tablet) 50 mg PO DAILY [facility] Last Admin: 05/22/21 08:09 Dose: 50 mg Documented by: Sodium Chloride (Sodium Chloride 0.65 % Nasal 44 Ml Sprbtl) 1 spray NOSTRIL-B Q1H PRN PRN Reason: nasal dryness Last Admin: 05/21/21 09:16 Dose: 1 spray Documented by: Tizanidine HCl (Tizanidine Hcl 4 Mg Tablet) 8 mg PO BEDTIME [facility] Last Admin: 05/21/21 20:35 Dose: 8 mg Documented by: Trazodone HCl (Trazodone Hcl 50 Mg Tablet) 50 mg PO BEDTIME PRN PRN Reason: Insomnia Valacyclovir HCl (Valacycyclovir Hcl 500 Mg Tablet) 500 mg PO DAILY [facility] Last Admin: 05/22/21 08:08 Dose: 500 mg Documented by: Allergies Allergies Allergy/AdvReac Type Severity Reaction Status Date / Time Sulfa (Sulfonamide Allergy Unknown RASH Verified 05/19/21 18:42 Antibiotics) [SULFA (SULFONAMIDE ANTIBIOTICS)] Assessment & Plan Assessment & Plan (1) Bipolar 2 disorder: Status: Acute Code(s): F31.81 - Bipolar II disorder Assessment and Plan: 35 yo with a hx of bipolar disorder II comes in after an impulsive OD on medications in the context of an argument with her fiance around the living situation. They live in a very crowded house and there have been some additional people that started living there. Her BF is also in the ED with an OD. When they were arguing her BF took the medications from her and OD'd as well. Patient denies a suicide attempt and is regretful of impulsively taking more medications than prescribed. Plan: - Admit to M3, 15 minutes checks. - Milieu therapy - No change in psychotropics. - Collaterals - Disposition planning I spent minutes with the patient and/or on the patient floor today, greater than?50% of which was spent counseling/coordinating care. Reason for contiued inpatient stay Substantial Risk for: stable for discharge
[2021-05-22 12:34] LABS: Glucose, Whole Blood 192 mg/dL (60-115)
[2021-05-22 12:35] VITALS: BP 181/97; PULSE 90
[2021-05-22] MEDS: amLODIPine Besylate 5 MG TABLET PO (12:35)
--- NOTE | 2021-05-22 12:41 | MHC.CLN ---
NUTRITION DIET CHANGED FROM DIABETIC 1500 KCAL TO DIABETIC 1800 KCAL.
--- NOTE | 2021-05-22 14:11 | PM.PSYDC ---
DS: Providers Provider Date of Service: 05/22/21 Date of admission: 05/19/21 22:39 Date of discharge: 05/22/21 Primary care physician: Unknown Physician Attending physician on discharge: Treasure Jimenez DS: Diagnosis Discharge Diagnosis (1) Bipolar 2 disorder: Status: Acute DS: Medications Discharge Medications Home Medications: Home Medications Medication Instructions Recorded Confirmed clonazepam 1 mg tablet 2 tab PO BEDTIME 05/19/21 05/19/21 ergocalciferol (vitamin D2) 1,250 1 cap PO SA 05/19/21 05/19/21 mcg (50,000 unit) capsule glipizide 5 mg tablet, extended 1 tab PO DAILY 05/19/21 05/19/21 release 24 hr hydroxyzine HCl 50 mg tablet 0.5 - 1 tab PO TID PRN 05/19/21 05/19/21 ibuprofen 800 mg tablet 1 tab PO TID 05/19/21 05/19/21 loratadine 10 mg tablet 1 tab PO DAILY 05/19/21 05/19/21 paroxetine HCl 10 mg tablet 1 tab PO DAILY 05/19/21 05/19/21 paroxetine HCl 40 mg tablet (Paxil) 1 tab PO DAILY 05/19/21 05/19/21 prazosin 1 mg capsule 1 cap PO BEDTIME 05/19/21 05/19/21 sitagliptin 50 mg tablet (Januvia) 1 tab PO DAILY 05/19/21 05/19/21 terazosin 1 mg capsule 1 cap PO BEDTIME 05/19/21 05/19/21 tizanidine 4 mg tablet 2 tab PO BEDTIME 05/19/21 05/19/21 valacyclovir 500 mg tablet 1 tab PO DAILY 05/19/21 05/19/21 Previous Rx's Medication Instructions Recorded oxybutynin chloride 10 mg 10 mg PO DAILY 90 Days #90 tab 07/21/20 tablet,extended release 24 hr amlodipine 5 mg tablet 5 mg PO DAILY #10 tab 05/22/21 Mental Status Exam Mental Status Exam Narrative: Appearance: casually groomed, fair hygiene in NAD Behavior: cooperative psychomotor:no agitation or retardation noted Speech:clear, normal rate/rhythm/volume, spontaneous Thought process:linear Thought content:no signs of psychosis, future oriented looking forward to see family. Mood: better Affect: congruent, non labile SI:denies- plan or intent. HI:none VH/AH:none Delusions:none Insight/judgment:fair x 2. Memory/cog: alert, oriented x 3. grossly intact to conversational testing. Data Data Completed and Pending Completed studies during hospitalization [Text1]: 05/19/21 05/19/21 05/19/21 00:16 00:19 00:34 WBC 18.0 H RBC 4.98 Hgb 15.8 Hct 46.3 MCV 93.0 MCH 31.7 MCHC 34.1 RDW 12.9 Plt Count 273 MPV 10.3 Immature Gran % (Auto) 1.7 H Neut % (Auto) 82.2 H Lymph % (Auto) 10.5 L [place] % (Auto) 5.0 Eos % (Auto) 0.2 Baso % (Auto) 0.4 Lymph # (Auto) 1.9 [place] # (Auto) 0.9 Eos # (Auto) 0.0 Baso # (Auto) 0.1 Abs Immat Gran (auto) 0.31 H Absolute Neuts (auto) 14.8 H Absolute Nucleated RBC 0.000 Nucleated RBC % (auto) 0.0 PT INR VBG pH 7.48 H VBG pCO2 27 VBG pO2 70 VBG HCO3 20 L VBG O2 Saturation 95.0 VBG Base Excess -1.0 Sodium Potassium Chloride Carbon Dioxide Anion Gap BUN Creatinine Estim Creat Clear Calc Estimated GFR POC Glucose Random Glucose Estimat Average Glucose Hemoglobin A1c % Calcium Magnesium Total Bilirubin Direct Bilirubin AST ALT Alkaline Phosphatase Total Protein Albumin Triglycerides Cholesterol LDL Cholesterol, Calc HDL Cholesterol Vitamin B12 Folate TSH Free T4 Urine Color Urine Appearance Urine pH Ur Specific [place] Urine Protein Urine Glucose (UA) Urine Ketones Urine Blood Urine Nitrite Ur Leukocyte Esterase Urine RBC Urine WBC Ur Squamous Epith Cells Urine Bacteria Urine Test Salicylates Urine Opiates Screen Urine Fentanyl Screen Acetaminophen Ur Barbiturates Screen Ur Phencyclidine Scrn Ur Amphetamines Screen U Benzodiazepines Scrn Urine Cocaine Screen U Marijuana (THC) Screen Ethyl Alcohol < 10 Acetone, Qual COVID-19 (LARISA) COVID-19 Clin Com 05/19/21 05/19/21 05/19/21 00:56 03:19 03:19 WBC RBC Hgb Hct MCV MCH MCHC RDW Plt Count MPV Immature Gran % (Auto) Neut % (Auto) Lymph % (Auto) [place] % (Auto) Eos % (Auto) Baso % (Auto) Lymph # (Auto) [place] # (Auto) Eos # (Auto) Baso # (Auto) Abs Immat Gran (auto) Absolute Neuts (auto) Absolute Nucleated RBC Nucleated RBC % (auto) PT INR VBG pH VBG pCO2 VBG pO2 VBG HCO3 VBG O2 Saturation VBG Base Excess Sodium 132 L Potassium 5.8 H Chloride 102 Carbon Dioxide 20 L Anion Gap 16 BUN 8 L Creatinine 0.99 Estim Creat Clear Calc 86.7 Estimated GFR > 60 POC Glucose Random Glucose 408 H* Estimat Average Glucose Hemoglobin A1c % Calcium 8.5 Magnesium Total Bilirubin 0.7 Direct Bilirubin AST 113 H ALT 115 H Alkaline Phosphatase 74 Total Protein 7.1 Albumin 4.2 Triglycerides Cholesterol LDL Cholesterol, Calc HDL Cholesterol Vitamin B12 Folate TSH Free T4 Urine Color YELLOW Urine Appearance CLEAR Urine pH 7.0 Ur Specific [place] 1.015 Urine Protein 1+ H Urine Glucose (UA) >=1000 H Urine Ketones 15 Urine Blood NEG Urine Nitrite NEG Ur Leukocyte Esterase NEG Urine RBC 1-4 Urine WBC 5-9 H Ur Squamous Epith Cells 1+ Urine Bacteria 2+ Urine Test Salicylates < 5.0 L Urine Opiates Screen Not Detected Urine Fentanyl Screen Not Detected Acetaminophen < 1 Ur Barbiturates Screen Not Detected Ur Phencyclidine Scrn Not Detected Ur Amphetamines Screen Not Detected U Benzodiazepines Scrn Not Detected Urine Cocaine Screen Not Detected U Marijuana (THC) Screen POSITIVE H Ethyl Alcohol Acetone, Qual Negative COVID-19 ([facility]ARISA) COVID-19 Clin Com 05/19/21 05/19/21 05/19/21 03:19 03:31 09:07 WBC RBC Hgb Hct MCV MCH MCHC RDW Plt Count MPV Immature Gran % (Auto) Neut % (Auto) Lymph % (Auto) [place] % (Auto) Eos % (Auto) Baso % (Auto) Lymph # (Auto) [place] # (Auto) Eos # (Auto) Baso # (Auto) Abs Immat Gran (auto) Absolute Neuts (auto) Absolute Nucleated RBC Nucleated RBC % (auto) PT INR VBG pH VBG pCO2 VBG pO2 VBG HCO3 VBG O2 Saturation VBG Base Excess Sodium 136 Potassium 4.0 D Chloride 104 Carbon Dioxide 21 L Anion Gap 15 BUN 11 Creatinine 1.15 Estim Creat Clear Calc 74.6 Estimated GFR 53 POC Glucose 328 H Random Glucose 258 H Estimat Average Glucose Hemoglobin A1c % Calcium 8.8 Magnesium 2.3 Total Bilirubin 0.8 Direct Bilirubin 0.3 AST 77 H ALT 108 H Alkaline Phosphatase 71 Total Protein 7.0 Albumin 4.2 Triglycerides Cholesterol LDL Cholesterol, Calc HDL Cholesterol Vitamin B12 Folate TSH Free T4 Urine Color Urine Appearance Urine pH Ur Specific [place] Urine Protein Urine Glucose (UA) Urine Ketones Urine Blood Urine Nitrite Ur Leukocyte Esterase Urine RBC Urine WBC Ur Squamous Epith Cells Urine Bacteria Urine Test NEGATIVE Salicylates Urine Opiates Screen Urine Fentanyl Screen Acetaminophen Ur Barbiturates Screen Ur Phencyclidine Scrn Ur Amphetamines Screen U Benzodiazepines Scrn Urine Cocaine Screen U Marijuana (THC) Screen Ethyl Alcohol Acetone, Qual COVID-19 (LARISA) COVID-19 Animating Touch 05/19/21 05/19/21 05/19/21 10:05 13:35 19:14 WBC RBC Hgb Hct MCV MCH MCHC RDW Plt Count MPV Immature Gran % (Auto) Neut % (Auto) Lymph % (Auto) [place] % (Auto) Eos % (Auto) Baso % (Auto) Lymph # (Auto) [place] # (Auto) Eos # (Auto) Baso # (Auto) Abs Immat Gran (auto) Absolute Neuts (auto) Absolute Nucleated RBC Nucleated RBC % (auto) PT 11.6 INR 1.0 VBG pH VBG pCO2 VBG pO2 VBG HCO3 VBG O2 Saturation VBG Base Excess Sodium Potassium Chloride Carbon Dioxide Anion Gap BUN Creatinine Estim Creat Clear Calc Estimated GFR POC Glucose 252 H Random Glucose Estimat Average Glucose Hemoglobin A1c % Calcium Magnesium Total Bilirubin Direct Bilirubin AST ALT Alkaline Phosphatase Total Protein Albumin Triglycerides Cholesterol LDL Cholesterol, Calc HDL Cholesterol Vitamin B12 Folate TSH Free T4 Urine Color Urine Appearance Urine pH Ur Specific [place] Urine Protein Urine Glucose (UA) Urine Ketones Urine Blood Urine Nitrite Ur Leukocyte Esterase Urine RBC Urine WBC Ur Squamous Epith Cells Urine Bacteria Urine Test Salicylates Urine Opiates Screen Urine Fentanyl Screen Acetaminophen Ur Barbiturates Screen Ur Phencyclidine Scrn Ur Amphetamines Screen U Benzodiazepines Scrn Urine Cocaine Screen U Marijuana (THC) Screen Ethyl Alcohol Acetone, Qual COVID-19 (LARISA) Negative COVID-19 [employer] Com See Note 05/20/21 05/20/21 05/20/21 07:46 07:46 07:46 WBC RBC Hgb Hct MCV MCH MCHC RDW Plt Count MPV Immature Gran % (Auto) Neut % (Auto) Lymph % (Auto) [place] % (Auto) Eos % (Auto) Baso % (Auto) Lymph # (Auto) [place] # (Auto) Eos # (Auto) Baso # (Auto) Abs Immat Gran (auto) Absolute Neuts (auto) Absolute Nucleated RBC Nucleated RBC % (auto) PT INR VBG pH VBG pCO2 VBG pO2 VBG HCO3 VBG O2 Saturation VBG Base Excess Sodium Potassium Chloride Carbon Dioxide Anion Gap BUN Creatinine Estim Creat Clear Calc Estimated GFR POC Glucose Random Glucose Estimat Average Glucose 226 Hemoglobin A1c % 9.5 Calcium Magnesium 2.2 Total Bilirubin Direct Bilirubin AST ALT Alkaline Phosphatase Total Protein Albumin Triglycerides 370 Cholesterol 302 LDL Cholesterol, Calc 201 HDL Cholesterol 27 Vitamin B12 221 Folate 12.5 TSH 3.61 Free T4 0.88 Urine Color Urine Appearance Urine pH Ur Specific [place] Urine Protein Urine Glucose (UA) Urine Ketones Urine Blood Urine Nitrite Ur Leukocyte Esterase Urine RBC Urine WBC Ur Squamous Epith Cells Urine Bacteria Urine Test Salicylates Urine Opiates Screen Urine Fentanyl Screen Acetaminophen Ur Barbiturates Screen Ur Phencyclidine Scrn Ur Amphetamines Screen U Benzodiazepines Scrn Urine Cocaine Screen U Marijuana (THC) Screen Ethyl Alcohol Acetone, Qual COVID-19 (LARISA) COVID-19 Clin Com 05/20/21 05/20/21 05/20/21 08:33 12:49 17:22 WBC RBC Hgb Hct MCV MCH MCHC RDW Plt Count MPV Immature Gran % (Auto) Neut % (Auto) Lymph % (Auto) [place] % (Auto) Eos % (Auto) Baso % (Auto) Lymph # (Auto) [place] # (Auto) Eos # (Auto) Baso # (Auto) Abs Immat Gran (auto) Absolute Neuts (auto) Absolute Nucleated RBC Nucleated RBC % (auto) PT INR VBG pH VBG pCO2 VBG pO2 VBG HCO3 VBG O2 Saturation VBG Base Excess Sodium Potassium Chloride Carbon Dioxide Anion Gap BUN Creatinine Estim Creat Clear Calc Estimated GFR POC Glucose 234 H 278 H 259 H Random Glucose Estimat Average Glucose Hemoglobin A1c % Calcium Magnesium Total Bilirubin Direct Bilirubin AST ALT Alkaline Phosphatase Total Protein Albumin Triglycerides Cholesterol LDL Cholesterol, Calc HDL Cholesterol Vitamin B12 Folate TSH Free T4 Urine Color Urine Appearance Urine pH Ur Specific [place] Urine Protein Urine Glucose (UA) Urine Ketones Urine Blood Urine Nitrite Ur Leukocyte Esterase Urine RBC Urine WBC Ur Squamous Epith Cells Urine Bacteria Urine Test Salicylates Urine Opiates Screen Urine Fentanyl Screen Acetaminophen Ur Barbiturates Screen Ur Phencyclidine Scrn Ur Amphetamines Screen U Benzodiazepines Scrn Urine Cocaine Screen U Marijuana (THC) Screen Ethyl Alcohol Acetone, Qual COVID-19 (ALRISA) COVID-19 Animating Touch 05/20/21 05/21/21 05/21/21 20:48 09:12 12:53 WBC RBC Hgb Hct MCV MCH MCHC RDW Plt Count MPV Immature Gran % (Auto) Neut % (Auto) Lymph % (Auto) [place] % (Auto) Eos % (Auto) Baso % (Auto) Lymph # (Auto) [place] # (Auto) Eos # (Auto) Baso # (Auto) Abs Immat Gran (auto) Absolute Neuts (auto) Absolute Nucleated RBC Nucleated RBC % (auto) PT INR VBG pH VBG pCO2 VBG pO2 VBG HCO3 VBG O2 Saturation VBG Base Excess Sodium Potassium Chloride Carbon Dioxide Anion Gap BUN Creatinine Estim Creat Clear Calc Estimated GFR POC Glucose 240 H 238 H 277 H Random Glucose Estimat Average Glucose Hemoglobin A1c % Calcium Magnesium Total Bilirubin Direct Bilirubin AST ALT Alkaline Phosphatase Total Protein Albumin Triglycerides Cholesterol LDL Cholesterol, Calc HDL Cholesterol Vitamin B12 Folate TSH Free T4 Urine Color Urine Appearance Urine pH Ur Specific [place] Urine Protein Urine Glucose (UA) Urine Ketones Urine Blood Urine Nitrite Ur Leukocyte Esterase Urine RBC Urine WBC Ur Squamous Epith Cells Urine Bacteria Urine Test Salicylates Urine Opiates Screen Urine Fentanyl Screen Acetaminophen Ur Barbiturates Screen Ur Phencyclidine Scrn Ur Amphetamines Screen U Benzodiazepines Scrn Urine Cocaine Screen U Marijuana (THC) Screen Ethyl Alcohol Acetone, Qual COVID-19 (LARISA) COVID-19 Animating Touch 05/21/21 05/21/21 05/22/21 17:30 20:26 08:45 WBC RBC Hgb Hct MCV MCH MCHC RDW Plt Count MPV Immature Gran % (Auto) Neut % (Auto) Lymph % (Auto) [place] % (Auto) Eos % (Auto) Baso % (Auto) Lymph # (Auto) [place] # (Auto) Eos # (Auto) Baso # (Auto) Abs Immat Gran (auto) Absolute Neuts (auto) Absolute Nucleated RBC Nucleated RBC % (auto) PT INR VBG pH VBG pCO2 VBG pO2 VBG HCO3 VBG O2 Saturation VBG Base Excess Sodium Potassium Chloride Carbon Dioxide Anion Gap BUN Creatinine Estim Creat Clear Calc Estimated GFR POC Glucose 248 H 262 H 221 H Random Glucose Estimat Average Glucose Hemoglobin A1c % Calcium Magnesium Total Bilirubin Direct Bilirubin AST ALT Alkaline Phosphatase Total Protein Albumin Triglycerides Cholesterol LDL Cholesterol, Calc HDL Cholesterol Vitamin B12 Folate TSH Free T4 Urine Color Urine Appearance Urine pH Ur Specific [place] Urine Protein Urine Glucose (UA) Urine Ketones Urine Blood Urine Nitrite Ur Leukocyte Esterase Urine RBC Urine WBC Ur Squamous Epith Cells Urine Bacteria Urine Test Salicylates Urine Opiates Screen Urine Fentanyl Screen Acetaminophen Ur Barbiturates Screen Ur Phencyclidine Scrn Ur Amphetamines Screen U Benzodiazepines Scrn Urine Cocaine Screen U Marijuana (THC) Screen Ethyl Alcohol Acetone, Qual COVID-19 (LARISA) COVID-19 [employer] Com 05/22/21 12:31 WBC RBC Hgb Hct MCV MCH MCHC RDW Plt Count MPV Immature Gran % (Auto) Neut % (Auto) Lymph % (Auto) [place] % (Auto) Eos % (Auto) Baso % (Auto) Lymph # (Auto) [place] # (Auto) Eos # (Auto) Baso # (Auto) Abs Immat Gran (auto) Absolute Neuts (auto) Absolute Nucleated RBC Nucleated RBC % (auto) PT INR VBG pH VBG pCO2 VBG pO2 VBG HCO3 VBG O2 Saturation VBG Base Excess Sodium Potassium Chloride Carbon Dioxide Anion Gap BUN Creatinine Estim Creat Clear Calc Estimated GFR POC Glucose 192 H Random Glucose Estimat Average Glucose Hemoglobin A1c % Calcium Magnesium Total Bilirubin Direct Bilirubin AST ALT Alkaline Phosphatase Total Protein Albumin Triglycerides Cholesterol LDL Cholesterol, Calc HDL Cholesterol Vitamin B12 Folate TSH Free T4 Urine Color Urine Appearance Urine pH Ur Specific [place] Urine Protein Urine Glucose (UA) Urine Ketones Urine Blood Urine Nitrite Ur Leukocyte Esterase Urine RBC Urine WBC Ur Squamous Epith Cells Urine Bacteria Urine Test Salicylates Urine Opiates Screen Urine Fentanyl Screen Acetaminophen Ur Barbiturates Screen Ur Phencyclidine Scrn Ur Amphetamines Screen U Benzodiazepines Scrn Urine Cocaine Screen U Marijuana (THC) Screen Ethyl Alcohol Acetone, Qual COVID-19 (LARISA) COVID-19 Clin Com 05/20/21 18:20 Urine clean catch - Clean Catch Midstream Urine Culture - Final 05/19/21 03:34 Urine clean catch - Urine butts top Urine Culture - Final DS: Summary Hospital Course Hospital Course: Patient is a 35 yo female with reported PTSD and Bipolar Disorder II. She came in on 05/18 at 11 PM after she OD'ed on 15 x 1 mg Klonopin and 12 Clonidine 0.3 mg and 20 x Tizanidine 4 mg after an argument with her significant other. He also OD'd and was sent to the ED. They were arguing and were grabbing bottles from each other and overdosing at the same time. Her mother overheard the argument and called 911. She denies her intent was to . She reported it was impulsive and out of anger. She was altered on arrival. patient was having periods of apnea, has sluggish pupils, did not respond to a sternal rub.? ED discussed with poison control, who stated the both clonidine and tizanidine can both cause hypotension.? Patient may become bradycardic from clonidine.? They suggested trying Narcan, which ED did to no effect.? Stated patient should be on cardiac monitoring, and if she decompensates we could intubate her.She was monitored in the ED and transferred to inpatient psychiatry. She reports increasingly irritable mood, sleep disruption, and mood is up and down . She is frustrated with her home living situation. The house where she lives in crowded. Also has PTSD symptoms. Denies SI now. Signed a 3 day. Past Psychiatric History: Treatment through [facility]. Has therapist and psychiatric practitioner. Denies prior inpatient Medical Evaluation Reviewed: Yes HOSPITAL COURSE On the unit, Ms. Crow was admitted on CV 3day notice. Pt was placed on 15 minutes checks for safety. Pt adamantly denied that OD was with intent to end her life. Pt reports it was impulsive in context of argument with significant other. Pt regretted OD. After discussing risks, benefits and alternative treatment options, pt reports that she has been on paxil with good effect for depression. She reported group home use of clonazepam, which PCP prescribes but not her OP psychiatric provider. Pt report she is working with OP psychiatric provider to taper off clonazepam gradually. Pt is in combination of clonidine and tizanidine and prazosin and doxazosin- pt would benefit from simplifying regimen and avoiding agents in same class (either staying on clonidine or tizanidine and either prazosin or doxazosin). Pt would like to discuss with her OP psychiatric providers to further simplify medication regimen. Pt was visible in the unit. She was social with select peers. She attended assigned groups. She was sleeping and eating well. Collateral information gathered from her father and mother who denied safety concern and agree with pt in that it was impulsive act and not with intent to end life. Parents denied safety concerns at time of discharge. Mother did agree to lock up all medications and give them to patient daily. Pt's systolic blood pressure has been >170. Pt reports she had been on lisinopril in the past but it was stopped by her PCP due to BP being stable. Pt was given amlodipine 5mg po daily. She understands she has to follow up with PCP and advised to monitor her BP daily until she meets with PCP. She may need to go back on HTN medication. There were no incidences of disruptive behaviors nor use of restraints. Time spent discussing smoking cessation with patient: 3 to 10 minutes Status at Discharge Cognitive/behavioral status at discharge: Pt has bright affect. She denies SI/HI. She is future oriented as evidenced by statement looking forward to return home see family and fiance. No signs of aggression towards self or others. Functional status at discharge: independent ambulation Overall status at discharge: patient is progressing back to baseline Time Spent with Patient Time attestation: Total time spent providing and/or coordinating discharge services: Time spent: Greater than 30 minutes Discharge Plan Discharge Patient Disposition: Home, Self-Care Discharge Diagnosis: Bipolar type 2 disorder, depressed Referrals: France Ferrell (Therapy) [Other] - 05/29/21 3:45 pm (Telehealth Appointment) Alvina Amezquita - (Psychiatry) [Other] - 06/16/21 1:30 pm (Telehealth Appointment) Physician,Unknown J [Primary Care Provider] - 1 Week Discharge Medications: New amlodipine 5 mg Tablet 5 mg PO DAILY Qty: 10 RF: 0 Continued oxybutynin chloride 10 mg tablet extended release 24hr 10 mg PO DAILY 90 Days Qty: 90 RF: 2 paroxetine HCl 10 mg tablet 1 tab PO DAILY RF: 0 ibuprofen 800 mg tablet 1 tab PO TID RF: 0 tizanidine 4 mg tablet 2 tab PO BEDTIME RF: 0 prazosin 1 mg capsule 1 cap PO BEDTIME RF: 0 clonazepam 1 mg tablet 2 tab PO BEDTIME RF: 0 glipizide 5 mg tablet extended release 24hr 1 tab PO DAILY RF: 0 hydroxyzine HCl 50 mg tablet 0.5 - 1 tab PO TID PRN (Reason: anxiety) RF: 0 terazosin 1 mg capsule 1 cap PO BEDTIME RF: 0 valacyclovir 500 mg tablet 1 tab PO DAILY RF: 0 ergocalciferol (vitamin D2) 1,250 mcg (50,000 unit) capsule 1 cap PO SA RF: 0 paroxetine HCl [Paxil] 40 mg tablet 1 tab PO DAILY RF: 0 loratadine 10 mg tablet 1 tab PO DAILY RF: 0 Januvia 50 mg tablet 1 tab PO DAILY RF: 0 Discontinued clonidine HCl 0.1 mg tablet 2 tab PO BEDTIME RF: 0 Discharge Orders: Discharge Order (Routine); Ordered 05/22/21 Ordered By: Treasure Jimenez Diet: diabetic diet Activity on Discharge: As tolerated Stand Alone Forms: Patient Portal Discharge page, Community Support Care Plan Goals: 1. Maintain mood 2. No SI/HI. 3. Safety- mother will lock medications and dispense to pt daily. Health Concerns: Follow up with PCP Dr. Elliott re: HTN, DM Plan of Treatment: 1. Take medications as prescribed 2. Go to nearest ED or call 911 in event of emergency Assessment: Pt with bright affect, future oriented looking forward to see family and continue OP psych tx. Adamantly denies SI/HI.
--- NOTE | 2021-05-22 17:52 | PC.NURSE ---
patient is alert and oriented x 4. Patient is pleasant and cooperative with discharge. Patient acknowledges and understood discharge instructions. Patient is in a brighter and cheerful mood with congruent affect. speech is coherent and appropriate. Eye contact is within normal limits. Patient stated that she is ready for discharge and wants to go to home. Patient denies SI/HI/AH/VH. Patient states that he is feeling safe. Patient denies anxiety or depression. Patient denies any further complaints at this time.
== END 2021-05-22 05:30 | disposition home or self-care (01) | DRG 885 ==
LOC: HO.ED 05-19 16:51 → HO.PADLT16 05-19 23:04
PROVIDERS: Emergency Medicine; Physician Assistant; Admitting Provider Registered Nurse; Emergency Provider Emergency Medicine; Visit Provider Social Worker
DX: F31.81 Bipolar II disorder (principal); R45.851 Suicidal ideations; F17.210 Nicotine dependence, cigarettes, uncomplicated; Z71.6 Tobacco abuse counseling; Z20.822 Contact with and (suspected) exposure to COVID-19; Z88.2 Allergy status to sulfonamides; Z91.52 Personal history of nonsuicidal self-harm; Z79.1 Long term (current) use of non-steroidal anti-inflammatories (NSAID); Z79.899 Other long term (current) drug therapy
CPT/HCPCS: 36415; 80048; 80053; 80061; 80076; 80143; 80179; 80307; 81001; 81025; 82009; 82077; 82607; 82746; 82803; 82947; 83036; 83735; 84439; 84443; 85025; 85610; 87086; 87635; 90686; 93005; 96361; 96374; 99285

== ENCOUNTER 2021-10-26 10:00 | Outpatient (REF) | payer MEDICARE, MEDICAID, SELFPAY ==
--- NOTE | ~2021-10-26 | XR_ITS ---
EXAMINATION: XR KNEE AP STANDING, BILATERAL XR KNEE, BILATERAL CLINICAL INFORMATION: Right knee pain. COMPARISON: None TECHNIQUE: AP bilateral standing view of the knees was obtained. Tunnel, lateral, and sunrise views of each knee. FINDINGS: No acute osseous abnormality. No significant joint space narrowing of either knee. No joint effusion. Enthesopathy of the superior pole of the right patella. XR/XR knee standing BI IMPRESSION: No acute osseous abnormality or significant joint space narrowing of either knee. There is an enthesophyte at the superior pole of the right patella.
== END 2021-10-26 10:01 | disposition home or self-care (01) ==
LOC: HO.XRAY 10:00
PROVIDERS: PCP Pediatrics; Visit Provider Pediatrics
DX: M25.561 Pain in right knee (principal)
CPT/HCPCS: 73565

== ENCOUNTER → 2022-03-15 13:32 | Outpatient (BNVA) | payer MEDICARE, MEDICAID, SELFPAY | PROVIDERS: PCP Pediatrics; Referring Provider Family Medicine; Visit Provider Surgery | DX: N64.4 Mastodynia (principal) | CPT/HCPCS: 99202 ==

== ENCOUNTER 2022-03-19 11:41 | Outpatient (REF) | payer MEDICARE, MEDICAID, SELFPAY ==
--- NOTE | ~2022-03-19 | MM_ITS ---
EXAMINATION: MM DIAGNOSTIC DIGITAL BREAST TOMOSYNTHESIS, BILATERAL US DIAGNOSTIC ULTRASOUND BREAST, RIGHT CLINICAL INFORMATION: Recently purulent right nipple discharge and palpable fullness, improved on antibiotics. The lifetime risk of breast cancer based on the Tyrer-Cuzick Model is 13%. COMPARISON: Mammography: 06/10/2015, targeted right breast ultrasound 06/10/2015. TECHNIQUE: Digital breast tomosynthesis is performed in both the craniocaudal and mediolateral oblique views along with computer-aided detection (CAD). Synthesized 2D images are generated from the tomosynthesis. Additional exaggerated right CC view is provided. Ultrasound right breast is targeted to the periareolar and retroareolar region. Grayscale imaging and color Doppler are performed without and with harmonics. Patient is able to point to area of concern at time of imaging. FINDINGS: There are scattered areas of fibroglandular density (ACR BI-RADS breast composition Category b). There are no significant masses, abnormal calcifications, or other abnormalities. Parenchymal pattern is similar to prior exam. There is no interval mass or coarsening of the stromal markings are skin thickening. No focal duct ectasia. The axilla are unremarkable. Ultrasound right breast demonstrates an incidental tiny retroareolar cyst measuring 0.4 x 0.2 cm. There is no significant cystic mass and no solid mass, architectural abnormality, or focal duct ectasia. No skin thickening or edema tracking in soft tissue planes. Results are discussed with the patient and family at time of visit. MM/MM tomosynthesis diagnostic BI IMPRESSION: -No mammographic evidence of malignancy or inflammatory changes. -Unremarkable targeted right breast ultrasound. ASSESSMENT: BI-RADS 2: Benign RECOMMENDATION: 1. Continue with the prescribed antibiotics and follow-up with surgeon as planned. 2. Otherwise, routine annual screening mammography, beginning age 40, or earlier as clinical risk factors warrant. This patient's information was entered into a reminder system with a target due date for their next mammogram.
== END 2022-03-19 11:42 | disposition home or self-care (01) ==
LOC: HO.MAMMO 11:41
PROVIDERS: PCP Pediatrics; Visit Provider Surgery
DX: N64.4 Mastodynia (principal)
CPT/HCPCS: 76642; 77062; 77066

== ENCOUNTER → 2022-05-02 15:37 | Outpatient (BNVA) | payer MEDICARE, MEDICAID, SELFPAY | PROVIDERS: PCP Pediatrics; Visit Provider Surgery | DX: K64.4 Residual hemorrhoidal skin tags (principal) | CPT/HCPCS: 99212 ==

== ENCOUNTER → 2022-05-07 14:28 | Outpatient (BNVA) | payer MEDICARE, MEDICAID, SELFPAY | PROVIDERS: PCP Pediatrics; Referring Provider Pediatrics; Visit Provider Surgery | DX: N64.4 Mastodynia (principal) | CPT/HCPCS: 99212 ==

== ENCOUNTER 2022-05-09 12:47 | Outpatient (REF) | payer MEDICARE, MEDICAID, SELFPAY ==
--- NOTE | ~2022-05-09 | US_ITS ---
EXAMINATION: US DIAGNOSTIC ULTRASOUND BREAST, RIGHT CLINICAL INFORMATION: Pain with heart and burning throbbing and probable lump retroareolar region of 4-5 days. Feels similar to previous time of 03/19/2022. COMPARISON: 03/19/2022 and 06/14/2015. TECHNIQUE: Ultrasound of the breast is performed with real-time butts scale imaging and color Doppler. FINDINGS: In region of patient's findings, there is question of an isoechoic circumscribed structure with some increased through sound transmission but no definite liquefied portion measuring approximately 2.2 x 1.6 cm in size. Patient has pain while compressing this area. Patient states that this is the same area where she had symptoms in the past including 03/19/2022 as well as 06/10/2015. No significant hyperemia is appreciated. No region of suspicious distal sound shadowing. Clinical follow-up is recommended. Antibiotic therapy may be considered. Results are discussed with the patient at time of visit. US/US breast RT limited IMPRESSION: No liquefied abscess appreciated in the retroareolar region where patient feels her pain. Question circumscribed isoechoic structure with some increased through sound transmission. ASSESSMENT: BI-RADS 2: Benign. RECOMMENDATION: 1. Patient should be managed based on the clinical impression. 2. Otherwise, routine annual screening mammography at age 39.
== END 2022-05-09 12:48 | disposition home or self-care (01) ==
LOC: HO.MAMMO 12:47
PROVIDERS: PCP Pediatrics; Visit Provider Surgery
DX: N64.4 Mastodynia (principal)
CPT/HCPCS: 76642

== ENCOUNTER → 2022-05-14 10:43 | Outpatient (BNVA) | payer MEDICARE, MEDICAID, SELFPAY | PROVIDERS: PCP Pediatrics; Visit Provider Surgery | DX: N64.4 Mastodynia (principal) | CPT/HCPCS: 99212 ==

== ENCOUNTER → 2022-06-14 09:19 | Outpatient (BNVA) | payer MEDICARE, MEDICAID, SELFPAY | PROVIDERS: PCP Pediatrics; Visit Provider Surgery | DX: N64.4 Mastodynia (principal) | CPT/HCPCS: 99212 ==

== ENCOUNTER → 2022-06-22 13:19 | Outpatient (BNVA) | payer MEDICARE, MEDICAID, SELFPAY | PROVIDERS: PCP Pediatrics; Visit Provider Surgery | DX: N64.4 Mastodynia (principal) | CPT/HCPCS: 99212 ==

== ENCOUNTER → 2022-07-12 13:26 | Outpatient (BNVA) | payer MEDICARE, MEDICAID, SELFPAY | PROVIDERS: PCP Pediatrics; Visit Provider Surgery | DX: N64.4 Mastodynia (principal) | CPT/HCPCS: 99212 ==

== ENCOUNTER 2022-09-27 07:39 | Outpatient (REF) | payer MEDICARE, MEDICAID, SELFPAY ==
--- NOTE | ~2022-09-27 | MM_ITS ---
EXAMINATION: MM DIAGNOSTIC DIGITAL BREAST TOMOSYNTHESIS, RIGHT US DIAGNOSTIC ULTRASOUND BREAST, RIGHT CLINICAL INFORMATION: 37-year-old with chronic tenderness anterior right breast, recently increased with palpable fullness. No known family history breast cancer. The lifetime risk of breast cancer based on the Tyrer-Cuzick Model is 11%. COMPARISON: Mammography: 03/19/2022, 06/10/2015; right breast ultrasound 05/09/2022, 03/19/2022, 06/10/2015. TECHNIQUE: Digital breast tomosynthesis is performed in both the craniocaudal and mediolateral oblique views along with computer-aided detection (CAD). Synthesized 2D images are generated from the tomosynthesis. Additional right CC view is provided. Ultrasound right breast is targeted to the area of clinical concern subareolar and periareolar right breast. Grayscale imaging and color Doppler are performed without and with harmonics. FINDINGS: There are scattered areas of fibroglandular density (ACR BI-RADS breast composition Category b). There is increased attenuation retroareolar right breast with rounded area of focal parenchymal asymmetry under 2 cm. There is mild smooth thickening of the scan and some mild coarsening of the stromal markings. The axilla is unremarkable. Ultrasound demonstrates an oval complicated predominantly cystic nodule adjacent to the deep dermis measuring 1.7 x 1.2 x 1.7 cm. There is increased through-transmission of sound. No associated internal color flow. There is mild hyperemia on color Doppler around this area and involving the areola skin. There are are some scattered minor duct ectasia adjacent to the lesion without intraductal color flow. It is difficult to confirm if the lesion is of dermal origin or adjacent to the deep dermis. Results are discussed with the patient at time of visit. Patient has appointment with surgeon this afternoon. Results and management options discussed with Dr. Orosco on 09/27/2022. MM/MM tomosynthesis diagnostic RT IMPRESSION: -Complicated predominantly cystic mass retroareolar right breast with surrounding hyperemia, overall size approximately 1.7 x 1.2 x 1.7 cm. Lesion contacts and possibly involves the deep dermis. Differential considerations include abscess, inflamed sebaceous cyst, or other lesion. ASSESSMENT: BI-RADS 3: Probably Benign RECOMMENDATION: Surgical consult. This patient's information was entered into a reminder system with a target due date for their next mammogram.
== END 2022-09-27 07:40 | disposition home or self-care (01) ==
LOC: HO.MAMMO 07:39
PROVIDERS: Visit Provider Pediatrics
DX: N63.41 Unspecified lump in right breast, subareolar (principal); N64.4 Mastodynia
CPT/HCPCS: 76642; 77061; 77065; 99212

== ENCOUNTER → 2022-10-01 13:32 | Outpatient (BNVA) | payer MEDICARE, MEDICAID, SELFPAY | PROVIDERS: PCP Pediatrics; Visit Provider Surgery | DX: N64.4 Mastodynia (principal) | CPT/HCPCS: 99212 ==

== ENCOUNTER 2022-10-05 06:13 | Day surgery (SDC) | payer MEDICARE, MEDICAID, SELFPAY ==
[2022-10-05] VITALS (9 sets, daily range): BP systolic 115–153; BP diastolic 70–91; PULSE 62–106; RESP 12–16; TEMP 36.3–36.6; O2SAT 91–97; BMI 37.6
[2022-10-05 06:29] LABS: UPreg QC Valid YES; Urine Pregnancy NEGATIVE (NEGATIVE)
[2022-10-05 07:05] LABS: Glucose, Whole Blood 220 mg/dL (60-115)
--- NOTE | 2022-10-05 07:50 | HO.ANESPROP2 ---
HPI - Anesthesia Eval Consult details Narrative: breast i and d PMF Active Problems Active Problems: All Active Problems (Updated 10/05/22 @ 06:48 by Giselle Zamora, RN) Nipple pain (Acute) External hemorrhoids (Acute) Breast pain, right (Acute) Bipolar 2 disorder (Acute) Past Medical History Medical History (Updated 10/05/22 @ 06:48 by Giselle Zamora, RN) Bipolar 2 disorder Breast pain, right Diabetes Elevated cholesterol External hemorrhoids Fibromyalgia HTN (hypertension) Nipple pain Family History Family History Maternal Uncle Kidney cancer Maternal Grandfather Bladder cancer Family history of problems with anesthesia: No Surgical History Surgical History History of appendectomy History of carpal tunnel release of both wrists History of cholecystectomy History of lymph node excision History of tonsillectomy History of Problems with Anesthesia: No Social History Social History Household Members: Family Housing: House Do you presently have visiting nurse or other home services: No Patient Tobacco Use Status: Current everyday Tobacco user Tobacco use type: Cigarette Cigarette Packs Per Day: 1 Cigarettes Per Day: 10 Years Smoked: sine age 12 e-Cigarette/Vaping Use: Never Used Second Hand Smoke Exposure: Yes Use of substances other than those prescribed or required for medical reasons: Yes Substance Use Type: Marijuana Substance Use Frequency: Daily Are you DNR?: No Advance Directives: No Advance Directives Information Provided: No service: No Sexual orientation: Don't Know Meds Allergies Allergy/AdvReac Type Severity Reaction Status Date / Time Sulfa (Sulfonamide Allergy Unknown RASH Verified 10/05/22 06:49 Antibiotics) [SULFA (SULFONAMIDE ANTIBIOTICS)] Active Medications: Current Medications Cefazolin Sodium/Dextrose (Ancef) 2 gm in 50 mls @ 100 mls/hr IV PREOP ONE Stop: 10/05/22 08:03 Home Medications Medication Instructions Recorded Confirmed Last Taken Type ergocalciferol (vitamin D2) 1,250 1 cap PO SA 05/19/21 10/01/22 05/18/21 History mcg (50,000 unit) capsule glipizide 5 mg tablet, extended 1 tab PO DAILY 05/19/21 10/01/22 05/18/21 History release 24 hr paroxetine HCl 40 mg tablet (Paxil) 1 tab PO DAILY depressive disorder 05/19/21 10/01/22 05/18/21 History tizanidine 4 mg tablet 2 tab PO BEDTIME 05/19/21 10/01/22 05/18/21 History cetirizine 10 mg tablet 10 mg PO DAILY 05/02/22 10/01/22 Unknown History clonidine HCl 0.1 mg tablet 0.1 mg PO TID 05/02/22 10/01/22 Unknown History semaglutide 0.25 mg or 0.5 mg (2 mg subcut 05/02/22 10/01/22 Unknown History mg/1.5 mL) subcutaneous pen injector (Ozempic) empagliflozin 25 mg tablet 25 mg PO QAM 10/05/22 10/05/22 Unknown History (Jardiance) lisinopril 20 mg tablet 20 mg PO DAILY 10/05/22 10/05/22 Unknown History valacyclovir 500 mg tablet 500 mg PO DAILY 10/05/22 10/05/22 Unknown History Exam Exam Date and Time: October 05, 2022 075 Height,Weight and Vital Signs: Height 5 ft 2 in Weight 93.44 kg Last Vital Signs Temp 97.3 F 10/05/22 07:13 Pulse 69 10/05/22 07:13 Resp 15 10/05/22 07:13 BP 115/70 10/05/22 07:13 Pulse Ox 97 10/05/22 07:13 O2 Del Method Room Air 10/05/22 07:13 Pertinent Lab Results Pertinent Lab Results: Laboratory Tests 10/05/22 10/05/22 06:20 07:01 POC Glucose 220 H Urine Test NEGATIVE Airway Mallampati Class: II TM Dist: >3cm Heart: rrr Lungs: cta Assessment and Plan Final Anesthetic Review Family History of Problems with Anesthesia: No History of Problems with Anesthesia: No NPO: Yes ASA Class: II Final Preanesthetic Review: No Changes in Pt Med Stat, Meds/Allgs Chart Reviewed, Consent Obtained/Reviewed and Anes Risks/Benef Reviewed Patient Risk: Low Procedure Risk: Low Anesthetic Plan Anesthetic Plan: GA Disposition: Standard PACU
--- NOTE | 2022-10-05 08:25 | MHC.SHP ---
Pre-Procedural Eval Section A Date of Service: 10/05/22 The patient is an INPATIENT: No The History & Physical has been completed within 30 days and I have reviewed it.: Yes Section B Chief Complaint: Mastodynia Allergies: Allergies Allergy/AdvReac Type Severity Reaction Status Date / Time Sulfa (Sulfonamide Allergy Unknown RASH Verified 10/05/22 06:49 Antibiotics) [SULFA (SULFONAMIDE ANTIBIOTICS)] Plan I have reviewed the history and physical and performed a pertinent physical examination on my patient. No changes have occurred unless specified. Time Spent With Patient Time: Total time managing care of this patient today ____ minutes.
[2022-10-05] MEDS: Scopolamine 1.5 MG PATCH.TD.3 TRANSDERMA (08:43)
--- NOTE | 2022-10-05 09:32 | W.PM.OPN ---
Operative Note Operative Note Date of Service: 10/05/22 Narrative: Preop diagnosis: Recurrent subareolar right breast abscess Postop diagnosis: The same, with possible galactocele Procedure: Excision of subareolar abscess cavity, possible galactocele Surgeon: Jose Orosco MD The patient is a 37 year female was had appeared to be recurrent infection/abscess of the sub areolar area of the right breast. Has had multiple imaging studies which did not reveal any obvious tumor. She continued to have the had this recurrent swelling and redness suggestive of an abscess. Her ultrasound had showed this small fluid collection in the subdermal area of the nipple area older complex. In view of this, I had scheduled her for possible I and D and debridement of the areolar area of the right breast. She understood the technique of the procedure as well as the risks, benefits, and alternatives She was brought to the operating room. She was placed in supine position. She was under general anesthesia via laryngeal mask airway. The right breast was prepped and draped in the usual sterile fashion. A time-out was done. The patient received cefazolin 2 g IV preoperatively. I infiltrated my planned line of incision at the nipple area complex. I made a crescent-shaped incision along the the margin of the nipple area complex laterally using a blade 15. I then deepened this incision using electrocautery. I lifted the nipple areolar complex as a flap until I was able to feel an indurated area underneath this. I carefully dissected this entire indurated area with a combination of Metzenbaum as well as electrocautery. At some point, and entered what appeared to be a cavity with an abscess versus a galactocele. This produced thick yellowish milky fluid. This may be a consequence of obstructed ducts. I had lifted the entire nipple area complex as a flap to this connect these ducts. Cultures were taken. I excised the entire cavity including surrounding indurated tissue using sharp dissection. This was sent as a specimen . I copiously irrigated. I then reapposed the flap of nipple area complex on to the subcutaneous area. I applied Dexon 3-0 interrupted sutures. I then closed the skin incision with simple interrupted subcuticular Dexon 4-0 sutures. I infiltrated the area with Marcaine 0.5% for postop analgesia. Steri-Strips were applied dressings were placed. The procedure was completed. The patient tolerated procedure well. There were no immediate complications. Initial and final counts of sponges and instruments were correct. Estimated blood loss was about 5 cc The patient was extubated without difficulty and transferred to the recovery room with stable vital signs.
[2022-10-05] MEDS: oxyCODONE HCl Immed Release 5 MG TABLET PO (09:52)
[2022-10-05] MEDS: fentaNYL citrate/PF 100 MCG/2 ML VIAL 25 MCG IVPUSH ×2 (09:54→09:59)
== END 2022-10-05 10:45 | disposition home or self-care (01) ==
PROVIDERS: Anesthesiology; PCP Pediatrics; Visit Provider Surgery
PROC: (CPT 19120; principal; 2022-10-05 08:30)
DX: N61.1 Abscess of the breast and nipple (principal); I10 Essential (primary) hypertension; E78.00 Pure hypercholesterolemia, unspecified; E11.9 Type 2 diabetes mellitus without complications; F31.81 Bipolar II disorder; M79.7 Fibromyalgia; Z79.84 Long term (current) use of oral hypoglycemic drugs; Z79.85 Long-term (current) use of injectable non-insulin antidiabetic drugs; Z79.1 Long term (current) use of non-steroidal anti-inflammatories (NSAID); Z79.899 Other long term (current) drug therapy; Z88.2 Allergy status to sulfonamides; F17.210 Nicotine dependence, cigarettes, uncomplicated
CPT/HCPCS: 19120; 81025; 82947; 87070; 87147; 87205; 88305; 88307; J0131; J0690; J1885; J3010

== ENCOUNTER → 2022-10-18 10:29 | Outpatient (BNVA) | payer MEDICARE, MEDICAID, SELFPAY | PROVIDERS: PCP Pediatrics; Visit Provider Surgery ==

== ENCOUNTER → 2022-11-08 09:48 | Outpatient (BNVA) | payer MEDICARE, MEDICAID, SELFPAY | PROVIDERS: PCP Pediatrics; Visit Provider Surgery | DX: N64.4 Mastodynia (principal) | CPT/HCPCS: 99212 ==

== ENCOUNTER → 2022-11-22 10:59 | Outpatient (BNVA) | payer MEDICARE, MEDICAID, SELFPAY | PROVIDERS: PCP Pediatrics; Visit Provider Surgery | DX: Z09 Encounter for follow-up examination after completed treatment for conditions other than malignant neoplasm (principal); N64.4 Mastodynia | CPT/HCPCS: 99212 ==

== ENCOUNTER → 2022-12-20 09:49 | Outpatient (BNVA) | payer MEDICARE, MEDICAID, SELFPAY | PROVIDERS: PCP Pediatrics; Visit Provider Surgery | DX: Z48.89 Encounter for other specified surgical aftercare (principal); N64.4 Mastodynia | CPT/HCPCS: 99212 ==

== ENCOUNTER 2023-01-12 15:56 | Emergency (ER) | payer MEDICARE, MEDICAID, SELFPAY ==
--- NOTE | ~2023-01-12 | US_ITS ---
EXAMINATION: US VENOUS WITH DOPPLER UPPER EXTREMITY, RIGHT CLINICAL INFORMATION: Pain and swelling COMPARISON: None available. TECHNIQUE: Ultrasound of the upper extremity is performed using compression sonography and color and pulse Doppler flow with assessment of augmentation of flow. There is also imaging and Doppler assessment of the jugular and subclavian veins. Spectral analysis with color-flow imaging is performed. FINDINGS: Respiratory variation, normal compression, and augmented flow are noted throughout the upper extremity including the axillary, brachial, cubital, and radial and ulnar veins. There is normal flow in the internal jugular and subclavian veins. There is no visible deep or superficial thrombophlebitis. If the patient's symptoms progress, a followup ultrasound in 5 -7 days might be of value to exclude proximal propagation from a nonvisualized distal arm vein. US/US venous duplex UE RT IMPRESSION: No DVT demonstrated in the right upper extremity
--- NOTE | ~2023-01-12 | XR_ITS ---
EXAMINATION: CHEST 2 VIEWS CLINICAL INFORMATION: SOB, chest pain on the right. COMPARISON: 07/23/2019. TECHNIQUE: PA and lateral views of the chest obtained. FINDINGS: The lungs are well expanded. No focal infiltrate, effusion, edema, or pneumothorax. Cardiac and mediastinal silhouettes are within normal limits for technique. No acute bony abnormality seen XR/XR chest 2V IMPRESSION: No evidence of acute disease
--- NOTE | 2023-01-12 16:03 | ED.EXTPRO ---
HPI - Extremity Problem General Chief complaint: General Medical Stated complaint: possible infection in R arm Time Seen by Provider: 01/12/23 17:52 Source: patient, RN notes reviewed and old records reviewed Mode of arrival: ambulatory Limitations: no limitations History of Present Illness HPI Narrative: 37-year-old female presents for evaluation of right 3rd finger pain. She reports that she had a hangnail to the area and ?I ripped it out about 4 days ago. ? She reports increasing redness, pain, swelling to the right 3rd finger She now has a red streak going up her arm She reports a heaviness to her right arm Denies any fevers or chills No history of IV drug abuse Related Data Home Medications Medication Instructions Recorded Confirmed ergocalciferol (vitamin D2) 1,250 1 cap PO SA 05/19/21 11/22/22 mcg (50,000 unit) capsule glipizide 5 mg tablet, extended 1 tab PO DAILY 05/19/21 11/22/22 release 24 hr paroxetine HCl 40 mg tablet (Paxil) 1 tab PO DAILY depressive disorder 05/19/21 11/22/22 tizanidine 4 mg tablet 2 tab PO BEDTIME 05/19/21 11/22/22 cetirizine 10 mg tablet 10 mg PO DAILY 05/02/22 11/22/22 clonidine HCl 0.1 mg tablet 0.1 mg PO TID 05/02/22 11/22/22 empagliflozin 25 mg tablet 25 mg PO QAM 10/05/22 11/22/22 (Jardiance) lisinopril 20 mg tablet 20 mg PO DAILY 10/05/22 11/22/22 valacyclovir 500 mg tablet 500 mg PO DAILY 10/05/22 11/22/22 Previous Rx's Medication Instructions Recorded oxybutynin chloride 10 mg 10 mg PO DAILY 90 days #90 tabs 07/21/20 tablet,extended release 24 hr menthol 0.44 %-zinc oxide 20.6 % 1 appl topical QID PRN itching 07/12/22 topical ointment (Calmoseptine) #113 grams doxycycline hyclate 100 mg tablet 100 mg PO DAILY #5 tabs 09/30/22 ibuprofen 600 mg tablet 600 mg PO Q6H PRN pain #30 tabs 10/05/22 cephalexin 500 mg capsule 500 mg PO TID #15 caps 10/09/22 oxycodone-acetaminophen 5 mg-325 1 tab PO TID PRN pain #10 tabs 12/14/22 mg tablet (Percocet) oxycodone-acetaminophen 5 mg-325 1 tab PO Q6H PRN pain #8 tabs 12/20/22 mg tablet (Percocet) cephalexin 500 mg tablet 500 mg PO QID #27 tabs 01/12/23 ciprofloxacin HCl 0.3 % eye drops See Rx Instructions ophthalmic 01/12/23 (eye) .COMPLEX 7 days #5 mL doxycycline hyclate 100 mg tablet 100 mg PO BID #14 tabs 01/12/23 Allergies Allergy/AdvReac Type Severity Reaction Status Date / Time Sulfa (Sulfonamide Allergy Unknown RASH Verified 01/12/23 16:03 Antibiotics) [SULFA (SULFONAMIDE ANTIBIOTICS)] Review of Systems Constitutional: Constitutional: Denies chills and Denies fever(s) Musculoskeletal: Musculoskeletal: Reports joint swelling, Reports radiating pain into limb and Reports stiffness Integumentary/Breasts: Skin/Breast: Reports erythema and Reports rash PMFSH Past Medical History Medical History Bipolar 2 disorder Breast pain, right Diabetes Elevated cholesterol External hemorrhoids Fibromyalgia HTN (hypertension) Nipple pain Surgical History History of appendectomy History of carpal tunnel release of both wrists History of cholecystectomy History of incision and drainage (10/05/22) History of lymph node excision History of tonsillectomy Family History Family History Maternal Uncle Kidney cancer Maternal Grandfather Bladder cancer Social History Social History Household Members: Family Housing: House Do you presently have visiting nurse or other home services: No Patient Tobacco Use Status: Current everyday Tobacco user Tobacco use type: Cigarette Cigarette Packs Per Day: 1 Cigarettes Per Day: 10 Years Smoked: sine age 12 e-Cigarette/Vaping Use: Never Used Second Hand Smoke Exposure: Yes Substance Use Type: Marijuana Advance Directives: No Advance Directives Information Provided: No service: No Sexual orientation: Don't Know Physical Exam Vital Signs: Vital Signs: Last Vital Signs Temp 98.3 F 01/12/23 19:22 Pulse 81 01/12/23 19:22 Resp 18 01/12/23 19:22 BP 167/94 H 01/12/23 19:22 Pulse Ox 93 01/12/23 19:22 O2 Del Method Room Air 01/12/23 19:22 BMI result Body Mass Index 35.9 Const: General: healthy appearing, comfortable, no acute distress, alert and awake Nutritional Appearance: well nourished Orientation/consciousness: patient oriented x3 HEENT: Head: Yes normocephalic and Yes atraumatic Eyes: Eyelids: Yes eyelids normal Conjunctivae: conjunctival abnormal right conjunctival injection Sclerae: sclerae normal Pupils: Equal, round and reactive pupils present EOM: EOMs intact bilaterally Neck: Neck: Yes full ROM Resp: Effort & Inspection: normal respiratory effort, able to speak in complete sentences and not labored Cardio: Rhythm: regular rhythm Skin: Other: Patient has a approximately 2 cm paronychia to the right 3rd finger now mostly to the radial side of the finger. There is some erythema extending approximately to the D IP joint. The right 3rd finger is edematous to the base of the finger. There is some streaking lymphangitis extending all the way up the arm to the right axillary region. The patient has full range of motion to the shoulder, elbow, wrist. She has slightly reduced range of motion with flexion of the right 3rd finger General skin exam: elasticity normal Neuro: General: patient oriented x3 Cranial nerves: Yes Equal, round and reactive pupils present and Yes Bilaterally intact EOM present Cognition (Neuro): normal cognition Course Course Course Narrative: RME - 37 yo female with history of poorly controleld DM (A1c 11%), bipolar disorder, who presents to the ER for evaluation of a red streak going up her right arm that started today associated with pain and swelling. She states 4 days ago she had a hangnail in the middle right finger that was red and painful. She developed soreness in the right arm 2 days later and it has been getting worse since. Reports new SOB and right sided chest pain that started last night as well. Exam with large erythematous area running on the dorsal side of the entire upper extremity to the axillary area. arm is tender throughout. HR 120s in triage. Plan: labs, cultures, US LUE Reevaluation(s) Reevaluation #1: Patient's repeat lactate improved. From the paronychia/lymphangitis 10 point she is due for discharge. While discussing she also reports that she believes she has pinkeye of the right eye. It does appear injected, we will treat with ciprofloxacin as she is a contact lens user Time: 19:34 Medications Administered Discontinued Medications Generic Name Dose Route Start Last Admin Trade Name Elkinq PRN Reason Stop Dose Admin Cephalexin HCl 500 mg 01/12/23 19:12 01/12/23 19:25 Cephalexin 500 Mg Capsule PO 01/12/23 19:13 500 mg ONCE ONE Administration Doxycycline Monohydrate 100 mg 01/12/23 19:12 01/12/23 19:25 Doxycycline Monohydrate 100 Mg Capsule PO 01/12/23 19:13 100 mg ONCE ONE Administration Sodium Chloride 1,000 mls @ 999 mls/hr 01/12/23 18:15 01/12/23 19:19 Ns IV 01/12/23 19:15 999 mls/hr .Q1H1M LAW Administration Lidocaine HCl 5 ml 01/12/23 18:09 01/12/23 18:51 Lidocaine Hcl 1 % Mpf 5 Ml Vial INFILTRATI 01/12/23 18:10 5 ml ONCE ONE Administration Oxymetazoline HCl 2 spray 01/12/23 18:41 01/12/23 19:25 Oxymetazoline Hcl 0.05 % Nasal 15 Ml [place] NOSTRIL-B 01/12/23 18:42 2 spray ONCE ONE Administration Medical Decision Making Medical Decision Making MDM Narrative: 37-year-old healthy female presents for evaluation of a paronychia. She appears to have streaking lymphangitis. The patient is afebrile but is quite tachycardic. We will treat with IV fluids. Her lactic acid was 2.6. This will be redrawn after her fluids. Otherwise her labs and vital signs are reassuring. She has no leukocytosis. Mild elevation of inflammatory markers which would be expected. Ultrasound was negative for DVT. We will attempt to drain the paronychia. The patient is requesting discharge at this time. I did briefly discuss possible admission the patient but she would prefer discharge. Given that she is not septic, I feel this is appropriate. We do have blood cultures pending and will be able to get in touch the patient if the result positive. Differential Diagnosis Paronychia Cellulitis Osteomyelitis DVT Thrombophlebitis Lymphangitis Admission/Observation Consideration of admission/observation: Escalation of care including admission/observation considered Patient has paronychia with streaking lymphangitis, but no evidence of sepsis Lab Data MDM Lab Attestation statement: I reviewed the patient's lab results. (No leukocytosis or significant anemia.. Patient has a mild elevation of inflammatory markers. Electrolytes within normal limits) 01/12/23 16:30 01/12/23 16:30 Labs: Lab Results 01/12/23 01/12/23 01/12/23 Range/Units 16:30 16:30 16:30 WBC 10.3 (4.8-10.8) X10*3/uL RBC 4.92 (4.20-5.50) X10*6/uL Hgb 15.7 (12.0-16.0) g/dl Hct 45.5 (37.0-47.0) % MCV 92.5 (80.0-98.0) fL MCH 31.9 (27.0-33.0) pg MCHC 34.5 (31.0-35.0) g/dl RDW 12.1 (11.0-16.0) % Plt Count 210 (160-400) X10*3/uL MPV 11.0 (9.4-12.3) fL Immature Gran % (Auto) 1.1 H (0.0-0.4) % Neut % (Auto) 64.9 (45-73) % Lymph % (Auto) 27.3 (20-40) % [place] % (Auto) 5.6 (2-11) % Eos % (Auto) 0.7 (0-4) % Baso % (Auto) 0.4 (0-2) % Lymph # (Auto) 2.8 (1.2-4.9) X10*3/uL [place] # (Auto) 0.6 (0.1-1.2) X10*3/uL Eos # (Auto) 0.1 (0.0-0.4) X10*3/uL Baso # (Auto) 0.0 (0.0-0.2) X10*3/uL Abs Immat Gran (auto) 0.11 H (0.00-0.03) X10*3/uL Absolute Neuts (auto) 6.7 (2.0-8.3) x10*3/uL Absolute Nucleated RBC 0.000 (0.0-0.012) X10*3/uL Nucleated RBC % (auto) 0.0 (0.0-0.2) /100WBC ESR 16 (0-20) MM/HR Sodium 136 (135-145) mmol/L Potassium 3.7 (3.3-5.1) mmol/L Chloride 104 (96-108) mmol/L Carbon Dioxide 19 L (22-29) mmol/L Anion Gap 17 (12-20) BUN 6 L (9-16) mg/dL Creatinine 0.81 (0.5-1.4) mg/dL Estim Creat Clear Calc 97.7 Estimated GFR > 60 Random Glucose 331 H (60-115) mg/dL Lactic Acid (0.5-2.0) mmol/L Lactic Acid F/U @ 2Hr (0.5-2.0) mmol/L Calcium 9.3 (8.4-10.2) mg/dL Magnesium 1.9 (1.6-2.6) mg/dL Total Bilirubin 0.5 (0.0-1.0) mg/dL Direct Bilirubin 0.1 (0.0-0.5) mg/dL AST 22 (5-31) U/L ALT 35 H (0-31) U/L Alkaline Phosphatase 101 (39-117) U/L Troponin I High Sens (<3.5-17.0) ng/L C-Reactive Protein 0.79 H (< or = 0.50) mg/dL B-Natriuretic Peptide (<100) pg/mL Total Protein 7.3 (6.5-8.0) g/dL Albumin 4.2 (3.5-5.0) g/dL 01/12/23 01/12/23 01/12/23 Range/Units 16:30 16:30 16:30 WBC (4.8-10.8) X10*3/uL RBC (4.20-5.50) X10*6/uL Hgb (12.0-16.0) g/dl Hct (37.0-47.0) % MCV (80.0-98.0) fL MCH (27.0-33.0) pg MCHC (31.0-35.0) g/dl RDW (11.0-16.0) % Plt Count (160-400) X10*3/uL MPV (9.4-12.3) fL Immature Gran % (Auto) (0.0-0.4) % Neut % (Auto) (45-73) % Lymph % (Auto) (20-40) % [place] % (Auto) (2-11) % Eos % (Auto) (0-4) % Baso % (Auto) (0-2) % Lymph # (Auto) (1.2-4.9) X10*3/uL [place] # (Auto) (0.1-1.2) X10*3/uL Eos # (Auto) (0.0-0.4) X10*3/uL Baso # (Auto) (0.0-0.2) X10*3/uL Abs Immat Gran (auto) (0.00-0.03) X10*3/uL Absolute Neuts (auto) (2.0-8.3) x10*3/uL Absolute Nucleated RBC (0.0-0.012) X10*3/uL Nucleated RBC % (auto) (0.0-0.2) /100WBC ESR (0-20) MM/HR Sodium (135-145) mmol/L Potassium (3.3-5.1) mmol/L Chloride (96-108) mmol/L Carbon Dioxide (22-29) mmol/L Anion Gap (12-20) BUN (9-16) mg/dL Creatinine (0.5-1.4) mg/dL Estim Creat Clear Calc Estimated GFR Random Glucose (60-115) mg/dL Lactic Acid 2.6 H* (0.5-2.0) mmol/L Lactic Acid F/U @ 2Hr (0.5-2.0) mmol/L Calcium (8.4-10.2) mg/dL Magnesium (1.6-2.6) mg/dL Total Bilirubin (0.0-1.0) mg/dL Direct Bilirubin (0.0-0.5) mg/dL AST (5-31) U/L ALT (0-31) U/L Alkaline Phosphatase (39-117) U/L Troponin I High Sens < 2.7 (<3.5-17.0) ng/L C-Reactive Protein (< or = 0.50) mg/dL B-Natriuretic Peptide 19 (<100) pg/mL Total Protein (6.5-8.0) g/dL Albumin (3.5-5.0) g/dL 01/12/23 Range/Units 19:03 WBC (4.8-10.8) X10*3/uL RBC (4.20-5.50) X10*6/uL Hgb (12.0-16.0) g/dl Hct (37.0-47.0) % MCV (80.0-98.0) fL MCH (27.0-33.0) pg MCHC (31.0-35.0) g/dl RDW (11.0-16.0) % Plt Count (160-400) X10*3/uL MPV (9.4-12.3) fL Immature Gran % (Auto) (0.0-0.4) % Neut % (Auto) (45-73) % Lymph % (Auto) (20-40) % [place] % (Auto) (2-11) % Eos % (Auto) (0-4) % Baso % (Auto) (0-2) % Lymph # (Auto) (1.2-4.9) X10*3/uL [place] # (Auto) (0.1-1.2) X10*3/uL Eos # (Auto) (0.0-0.4) X10*3/uL Baso # (Auto) (0.0-0.2) X10*3/uL Abs Immat Gran (auto) (0.00-0.03) X10*3/uL Absolute Neuts (auto) (2.0-8.3) x10*3/uL Absolute Nucleated RBC (0.0-0.012) X10*3/uL Nucleated RBC % (auto) (0.0-0.2) /100WBC ESR (0-20) MM/HR Sodium (135-145) mmol/L Potassium (3.3-5.1) mmol/L Chloride (96-108) mmol/L Carbon Dioxide (22-29) mmol/L Anion Gap (12-20) BUN (9-16) mg/dL Creatinine (0.5-1.4) mg/dL Estim Creat Clear Calc Estimated GFR Random Glucose (60-115) mg/dL Lactic Acid (0.5-2.0) mmol/L Lactic Acid F/U @ 2Hr 1.4 (0.5-2.0) mmol/L Calcium (8.4-10.2) mg/dL Magnesium (1.6-2.6) mg/dL Total Bilirubin (0.0-1.0) mg/dL Direct Bilirubin (0.0-0.5) mg/dL AST (5-31) U/L ALT (0-31) U/L Alkaline Phosphatase (39-117) U/L Troponin I High Sens (<3.5-17.0) ng/L C-Reactive Protein (< or = 0.50) mg/dL B-Natriuretic Peptide (<100) pg/mL Total Protein (6.5-8.0) g/dL Albumin (3.5-5.0) g/dL Radiology Impression Discussion of test interpretation with radiology: I have reviewed the radiologist's reading. (Negative for DVT) Procedures Abscess I/D Site: hand Side (if applicable): right (3rd finger) Local Anesthetic: lidocaine 1% Amount of anesthesia used (mL): 5 Technique: incised with blade Amount of fluid expressed (mL): 1 Sent for culture/gram staining?: No Irrigation: No Packing used?: none Discharge Plan Discharge Clinical Impression: Paronychia of finger, Lymphangitis, Conjunctivitis Patient Disposition: Home, Self-Care Instructions: Paronychia (ED) Additional Instructions: You have an infection of your right 3rd finger called a paronychia. This is causing the lymph nodes to be swollen and flamed up your arm causing the red streak If your blood cultures are positive, we will call you to return to the emergency department for IV antibiotics If you develop any fevers, lethargy or worsening symptoms, you should also return to the emergency room for further evaluation and likely IV antibiotics Take both antibiotics orally as prescribed Use the eyedrops to treat pinkeye as well Do not wear your contacts until your pinkeye has been fully treated Prescriptions: New doxycycline hyclate 100 mg tablet 100 mg PO BID Qty: 14 0RF cephalexin 500 mg tablet 500 mg PO QID Qty: 27 0RF ciprofloxacin HCl 0.3 % drops See Rx Instructions .ROUTE .COMPLEX 7 Days Qty: 5 0RF Rx Instructions: put 1-2 drps in affected eye(s) every 2hr up to 8 times/day x2days; then 4 times/day x5days No Action oxybutynin chloride 10 mg tablet extended release 24hr 10 mg PO DAILY 90 Days Qty: 90 2RF doxycycline hyclate 100 mg tablet 100 mg PO DAILY Qty: 5 0RF cephalexin 500 mg capsule 500 mg PO TID Qty: 15 0RF oxycodone-acetaminophen [Percocet] 5-325 mg tablet 1 tab PO TID PRN (Reason: pain) Qty: 10 0RF Rx Instructions: Partial Fill upon patient request. tizanidine 4 mg tablet 2 tab PO BEDTIME glipizide 5 mg tablet extended release 24hr 1 tab PO DAILY ergocalciferol (vitamin D2) 1,250 mcg (50,000 unit) capsule 1 cap PO SA paroxetine HCl [Paxil] 40 mg tablet 1 tab PO DAILY lisinopril 20 mg tablet 20 mg PO DAILY valacyclovir 500 mg tablet 500 mg PO DAILY Jardiance 25 mg tablet 25 mg PO QAM ibuprofen 600 mg tablet 600 mg PO Q6H PRN (Reason: pain) Qty: 30 0RF clonidine HCl 0.1 mg tablet 0.1 mg PO TID cetirizine 10 mg tablet 10 mg PO DAILY menthol-zinc oxide [Calmoseptine] 0.44-20.6 % ointment 1 appl topical QID PRN (Reason: itching) Qty: 113 0RF oxycodone-acetaminophen [Percocet] 5-325 mg tablet 1 tab PO Q6H PRN (Reason: pain) Qty: 8 0RF Rx Instructions: Partial Fill upon patient request.
[2023-01-12 16:04] VITALS: BP 148/98; PULSE 127; RESP 18; TEMP 36.3; O2SAT 97; BMI 35.9
--- NOTE | 2023-01-12 16:05 | ECG_ITS ---
Test Reason : CHEST PAIN Blood Pressure : / mmHG Vent. Rate : 118 BPM Atrial Rate : 118 BPM P-R Int : 162 ms QRS Dur : 090 ms QT Int : 316 ms P-R-T Axes : 059 044 033 degrees QTc Int : 442 ms Sinus tachycardia Anterior infarct (cited on or before 12-JAN-2023) Abnormal ECG When compared with ECG of 19-MAY-2021 01:42, FL interval has decreased Vent. rate has increased BY 53 BPM T wave amplitude has decreased in Anterolateral leads Referred By: Kait Castanon Electronically Signed By:KELLEY PEDRO MD
[2023-01-12 16:37] LABS: MANUAL DIFF FLAG NO
[2023-01-12 16:49] LABS: Basophils Percent Auto 0.4 % (0-2); Eosinophils Absolute Auto 0.1 X10*3/uL (0.0-0.4); Eosinophils Percent Auto 0.7 % (0-4); Hematocrit 45.5 % (37.0-47.0); Hemoglobin 15.7 g/dl (12.0-16.0); Imm Gran Abs Auto 0.11 X10*3/uL (0.00-0.03); Imm Gran Pct Auto 1.1 % (0.0-0.4); Lymphocytes Absolute Auto 2.8 X10*3/uL (1.2-4.9); Lymphocytes Percent Auto 27.3 % (20-40); Mean Corpuscular HGB Conc 34.5 g/dl (31.0-35.0); Mean Corpuscular Hemoglobin 31.9 pg (27.0-33.0); Mean Corpuscular Volume 92.5 fL (80.0-98.0); Monocytes Absolute Auto 0.6 X10*3/uL (0.1-1.2); Monocytes Percent Auto 5.6 % (2-11); Neutrophils Absolute Auto 6.7 x10*3/uL (2.0-8.3); Neutrophils Percent Auto 64.9 % (45-73); Platelet Count 210 X10*3/uL (160-400); Red Blood Count 4.92 X10*6/uL (4.20-5.50); Red Cell Distribution Width 12.1 % (11.0-16.0); White Blood Count 10.3 X10*3/uL (4.8-10.8)
[2023-01-12 16:58] LABS: Alanine Aminotransferase 35 U/L (0-31); Albumin Level 4.2 g/dL (3.5-5.0); Alkaline Phosphatase 101 U/L (39-117); Anion Gap 17 (12-20); Aspartate Amino Transferase 22 U/L (5-31); Bilirubin Direct 0.1 mg/dL (0.0-0.5); Bilirubin Total 0.5 mg/dL (0.0-1.0); Blood Urea Nitrogen 6 mg/dL (9-16); C Reactive Protein 0.79 mg/dL (< or = 0.50); Calcium 9.3 mg/dL (8.4-10.2); Carbon Dioxide 19 mmol/L (22-29); Chloride 104 mmol/L (96-108); Creatinine Clr Calc Pharmacy 97.7; Estimated Glomerular Filt Rate > 60; Glucose Random 331 mg/dL (60-115); Magnesium 1.9 mg/dL (1.6-2.6); Potassium 3.7 mmol/L (3.3-5.1); Sodium 136 mmol/L (135-145); Total Protein 7.3 g/dL (6.5-8.0)
[2023-01-12 17:03] LABS: B Type Natriuretic Peptide 19 pg/mL (<100); Lactic Acid 2.6 mmol/L (0.5-2.0)
[2023-01-12 17:14] LABS: Troponin-I High Sensitivity < 2.7 ng/L (<3.5-17.0)
[2023-01-12 18:33] LABS: Reflex Lactate? Lactic Acid Added
[2023-01-12 18:41] LABS: Erythrocyte Sedimentation Rate 16 MM/HR (0-20)
[2023-01-12] MEDS: Lidocaine HCl 1 % MPF 5 ML VIAL INFILTRATI (18:51)
[2023-01-12] MEDS: 0.9 % Sodium Chloride 1,000 ML 999 ML IV (19:19)
[2023-01-12 19:21] LABS: ~Lactic Acid-LAB USE ONLY 1.4 mmol/L (0.5-2.0)
[2023-01-12 19:22] VITALS: BP 167/94; PULSE 81; RESP 18; TEMP 36.8; O2SAT 93
[2023-01-12] MEDS: Oxymetazoline HCl 0.05 % Nasal 15 ML SPRAY 2 SPRAY NOSTRIL-B (19:25)
[2023-01-12] MEDS: cephALEXin 500 MG CAPSULE PO (19:25)
[2023-01-12] MEDS: Doxycycline Monohydrate 100 MG CAPSULE PO (19:25)
--- NOTE | 2023-01-12 19:30 | PC.NURSE ---
this rn assumed care of pt @ 1900. this rn placed 20 g IV in L FA. pt tolerated well. pt medicated according to mar
[2023-01-12] MEDS: Ibuprofen 600 MG TABLET PO (20:03)
[2023-01-12 21:07] VITALS: BP 168/91; PULSE 72; RESP 16; TEMP 36.9; O2SAT 95
[2023-01-12 21:09] LABS: Appearance Urine Cloudy; Color Urine Yellow; Glucose Urine UA >=1000 mg/dL (Negative); Leukocyte Esterase Urine Negative (Negative); Nitrite Urine Negative (Negative); PH 5.5 (5.0-9.0); Specific Gravity - Urine >= 1.030 (1.005-1.025); UMIC TRIGGER UACC YES; Urine Blood Negative (Negative); Urine Ketones 40 mg/dL (Negative); Urine Protein 100 (2+) mg/dL (Neg-Trace)
--- NOTE | 2023-01-12 21:11 | PC.NURSE ---
iv removed at discharge.pt calm and cooperative. vss. pt partner at bedside. pt ambulatory at discharge. pt provided with discharge instructions. pt verbalized understanding of discharge plan
[2023-01-12 21:13] LABS: Amphetamine Screen Urine Not Detected (Not Detect); Barbiturates, Urine Not Detected (Not Detect); Benzodiazepines Screen Urine Not Detected (Not Detect); Cannabinoid Screen Urine POSITIVE (Not Detect); Cocaine Screen Urine Not Detected (Not Detect); Fentanyl, urine Not Detected (Not Detect); Opiate Screen Urine Not Detected (Not Detect); Phencyclidine Screen Urine Not Detected (Not Detect)
[2023-01-12 21:38] LABS: Hyaline Casts Urine 0-2 /LPF (0-2); UACC Culture Trigger YES
[2023-01-12 21:39] LABS: Bacteria Urine 3+ (None Seen)
== END 2023-01-12 21:13 | disposition home or self-care (01) ==
PROVIDERS: Physician Assistant; Emergency Provider Emergency Medicine; PCP Pediatrics
DX: L03.011 Cellulitis of right finger (principal); I89.1 Lymphangitis; M79.601 Pain in right arm; H10.9 Unspecified conjunctivitis; E11.9 Type 2 diabetes mellitus without complications; I10 Essential (primary) hypertension; E78.5 Hyperlipidemia, unspecified; R06.02 Shortness of breath; F12.90 Cannabis use, unspecified, uncomplicated; F17.210 Nicotine dependence, cigarettes, uncomplicated; Z79.899 Other long term (current) drug therapy
CPT/HCPCS: 10060; 36415; 71046; 80048; 80076; 80307; 81001; 83605; 83735; 83880; 84484; 85025; 85652; 86140; 87040; 87086; 93005; 93971; 96360; 96361; 99285

== ENCOUNTER → 2023-01-12 16:05 | Outpatient (BNV) | payer MEDICARE, MEDICAID, SELFPAY | PROVIDERS: Emergency Provider Emergency Medicine; PCP Pediatrics; Visit Provider Internal Medicine Cardiovascular Disease | DX: R00.0 Tachycardia, unspecified (principal) | CPT/HCPCS: 93010 ==

== ENCOUNTER 2023-02-18 11:47 | Outpatient (REF) | payer MEDICARE, MEDICAID, SELFPAY ==
[2023-02-19 04:12] LABS: CT PCR NOT DETECTED (Not Detect.); NG PCR NOT DETECTED (Not Detect.)
[2023-02-19 10:06] LABS: BV Int Neg Control Negative (Negative); BV Int Pos Control Positive (Positive)
== END 2023-02-18 11:48 | disposition home or self-care (01) ==
LOC: HO.CHCLNP 11:47
PROVIDERS: Visit Provider Internal Medicine
DX: N89.8 Other specified noninflammatory disorders of vagina (principal)
CPT/HCPCS: 0353U; 87480; 87510; 87660

== ENCOUNTER 2023-04-13 16:32 | Emergency (ER) | payer MEDICARE, MEDICAID, SELFPAY ==
[2023-04-13 17:17] VITALS: BP 163/96; PULSE 85; RESP 16; TEMP 36.4; O2SAT 97; BMI 34.2
--- NOTE | 2023-04-13 17:17 | ED_ITS ---
HPI - Eye Problem General Chief complaint: Eye Problems Stated complaint: Infection/pain in right eye since 04/10 Time Seen by Provider: 04/13/23 17:19 Source: patient Mode of arrival: ambulatory Limitations: no limitations History of Present Illness HPI Narrative: 37 yo female with history of DM, fibromyalgia, HTN here with complaints of right lower eyelid since Saturday. Went to walk in clinic and was prescribed prednisone oral. Increasing redness/swelling to the right lower eyelid. No vision changes, pain in eye, discharge, itching or irritation. Does use contacts/glasses. Related Data Home Medications Medication Instructions Recorded Confirmed ergocalciferol (vitamin D2) 1,250 1 cap PO SA 05/19/21 11/22/22 mcg (50,000 unit) capsule glipizide 5 mg tablet, extended 1 tab PO DAILY 05/19/21 11/22/22 release 24 hr paroxetine HCl 40 mg tablet (Paxil) 1 tab PO DAILY depressive disorder 05/19/21 11/22/22 tizanidine 4 mg tablet 2 tab PO BEDTIME 05/19/21 11/22/22 cetirizine 10 mg tablet 10 mg PO DAILY 05/02/22 11/22/22 clonidine HCl 0.1 mg tablet 0.1 mg PO TID 05/02/22 11/22/22 empagliflozin 25 mg tablet 25 mg PO QAM 10/05/22 11/22/22 (Jardiance) lisinopril 20 mg tablet 20 mg PO DAILY 10/05/22 11/22/22 valacyclovir 500 mg tablet 500 mg PO DAILY 10/05/22 11/22/22 Previous Rx's Medication Instructions Recorded oxybutynin chloride 10 mg 10 mg PO DAILY 90 days #90 tabs 07/21/20 tablet,extended release 24 hr menthol 0.44 %-zinc oxide 20.6 % 1 appl topical QID PRN itching 07/12/22 topical ointment (Calmoseptine) #113 grams doxycycline hyclate 100 mg tablet 100 mg PO DAILY #5 tabs 09/30/22 ibuprofen 600 mg tablet 600 mg PO Q6H PRN pain #30 tabs 10/05/22 cephalexin 500 mg capsule 500 mg PO TID #15 caps 10/09/22 oxycodone-acetaminophen 5 mg-325 1 tab PO TID PRN pain #10 tabs 12/14/22 mg tablet (Percocet) oxycodone-acetaminophen 5 mg-325 1 tab PO Q6H PRN pain #8 tabs 12/20/22 mg tablet (Percocet) cephalexin 500 mg tablet 500 mg PO QID #27 tabs 01/12/23 ciprofloxacin HCl 0.3 % eye drops See Rx Instructions ophthalmic 01/12/23 (eye) .COMPLEX 7 days #5 mL doxycycline hyclate 100 mg tablet 100 mg PO BID #14 tabs 01/12/23 doxycycline monohydrate 100 mg 100 mg PO BID #20 caps 04/13/23 capsule fluconazole 150 mg tablet 150 mg PO Q3D 2 doses #2 tabs 04/13/23 Allergies Allergy/AdvReac Type Severity Reaction Status Date / Time Sulfa (Sulfonamide Allergy Unknown RASH Verified 01/12/23 16:03 Antibiotics) [SULFA (SULFONAMIDE ANTIBIOTICS)] Review of Systems Review of Systems: Yes all other systems are reviewed and are negative Constitutional: Constitutional: Reports no additional constitutional complaints, Denies body ache(s), Denies chills, Denies fever(s), Denies headache(s) and Denies weakness Eyes: Eyes: Reports no additional eye complaints, Denies change in vision, Denies eye discharge, Denies floaters, Denies irritation, Denies eye pain and Denies photophobia ENT: Reports system reviewed and no additional complaints, except as documented, Denies dizziness, Denies headache(s), Denies nasal congestion, Denies nasal discharge and Denies neck pain Cardiovascular: Cardiovascular: Reports no additional cardiovascular complaints, Denies chest pain, Denies leg edema and Denies dyspnea Respiratory: Respiratory: Reports no additional respiratory complaints, Denies cough and Denies dyspnea Gastrointestinal: Gastrointestinal: Reports no additional gastrointestinal complaints, Denies abdominal pain, Denies diarrhea, Denies nausea and Denies vomiting Genitourinary: Genitourinary: Reports no additional female genitourinary co mplaints and Denies urinary incontinence Musculoskeletal: Musculoskeletal: Reports no additional musculoskeletal complaints, Denies back pain, Denies arthralgias, Denies joint swelling, Denies neck pain, Denies numbness and Denies tingling Integumentary/Breasts: Skin/Breast: Reports system reviewed and no additional complaints, except as docu and Denies rash Neurologic: Reports system reviewed and no additional complaints, except as documented, Denies Abnormal speech present, Denies dizziness, Denies headache(s), Denies numbness, Denies tingling and Denies weakness PMFSH Past Medical History Attestation statement: The following information was validated with the patient. Source: old records reviewed and nursing notes reviewed Medical History Diabetes Fibromyalgia Elevated cholesterol HTN (hypertension) Nipple pain External hemorrhoids Breast pain, right Bipolar 2 disorder Surgical History History of incision and drainage (10/05/22) History of lymph node excision History of carpal tunnel release of both wrists History of appendectomy History of cholecystectomy History of tonsillectomy Family History Family History Maternal Uncle Kidney cancer Maternal Grandfather Bladder cancer Social History Social History Household Members: Family Housing: House Do you presently have visiting nurse or other home services: No Patient Tobacco Use Status: Current everyday Tobacco user Tobacco use type: Cigarette Cigarette Packs Per Day: 1 Cigarettes Per Day: 10 Years Smoked: sine age 12 e-Cigarette/Vaping Use: Never Used Second Hand Smoke Exposure: Yes Substance Use Type: Marijuana Advance Directives: No Advance Directives Information Provided: No service: No Sexual orientation: Don't Know Physical Exam Vital Signs: Vital Signs: Last Vital Signs Temp 97.6 F 04/13/23 17:17 Pulse 85 04/13/23 17:17 Resp 16 04/13/23 17:17 BP 163/96 H 04/13/23 17:17 Pulse Ox 97 04/13/23 17:17 O2 Del Method Room Air 04/13/23 17:17 BMI result Body Mass Index 34.2 Const: General: cooperative, healthy appearing, comfortable and no acute distress Orientation/consciousness: patient oriented x3 Limitations: no limitations HEENT: Head: Yes normal to inspection Ears: hearing grossly normal bilaterally and TM's normal bilaterally General nose exam: Normal external nose present Face and sinus: Yes normal facial exam Mouth: Normal oral and palatal mucosa present Throat: Yes posterior oropharynx normal Eyes: Other: To the right lower eyelid there is swelling, erythema specifically around the nasolacrimal duct. General: appearance normal, both eyes and all related structures Visual Norton: normal visual norton by confrontation Alignment and Position: alignment normal Eyelids: Yes eyelids normal Conjunctivae: conjunctivae normal Sclerae: sclerae normal Corneas: corneas normal Pupils: Equal, round and reactive pupils present EOM: EOMs intact bilaterally Direct Ophthalmoscopy: normal light reflex and No photophobia Neck: Neck: Yes normal visual inspection and Yes full ROM Chest: Chest palpation & inspection: normal inspection of the chest Resp: Effort & Inspection: normal respiratory effort Auscultation: clear to auscultation bilaterally Cardio: Rate: regular rate Rhythm: regular rhythm Peripheral pulses: Peripheral pulses 2+ throughout GI: Inspection: Yes normal to inspection Palpation (GI): Soft to palpation and nontender Auscultation: normal bowel sounds Back/Spine/Pelvis: Thoracic/Lumbar Spine: thoracic and lumbar spine normal to inspection Skin: General skin exam: no rashes or lesions noted Neuro: General: patient oriented x3, no focal motor deficits and normal sensation to monofilament Cranial nerves: Yes Equal, round and reactive pupils present Cognition (Neuro): normal cognition Speech: No Abnormal speech present Gait exam (Neuro): Normal gait present Motor exam (neuro): 5/5 motor strength present throughout Extrem: General: Yes normal to inspection Medical Decision Making Medical Decision Making MDM Narrative: 37 yo female with history of DM, fibromyalgia, HTN here with complaints of right lower eyelid since Saturday. Went to walk in clinic and was prescribed prednisone oral. Increasing redness/swelling to the right lower eyelid. No vision changes, pain in eye, discharge, itching or irritation. Does use contacts/glasses To the right lower eyelid there is swelling, erythema specifically around the nasolacrimal duct. Will recommend continue warm compresses, gentle massage on oral antibiotics. Reviewed worrisome signs and symptoms of when to return to the emergency room. Comfortable plan for discharge home. Differential Diagnosis Differential Diagnoses: The differential diagnosis associated with the presentation includes Nasolacrimal duct obstruction Dacrocystitis Low concern for orbital cellulitis with normal reported vision, no eye pain, normal EOM with no eye weakness Admission/Observation Consideration of admission/observation: Escalation of care including admission/observation considered Low concern for orbital cellulitis-no need for advanced imaging, ophthalmology emergent consultation and or admission Tests considered The following testing was considered but not selected: No need for labs or orbital CT as there is low concern for orbital cellulitis Prescription Management I considered prescription management with: Antibiotic Chronic Conditions Patient?s care impacted by: Diabetes Discharge Plan Discharge Clinical Impression: Dacrocystitis Patient Disposition: Home, Self-Care Instructions: Blocked Tear Duct (ED) Additional Instructions: Continue warm compresses, gentle massage Return for fever, vision change, eye pain Prescriptions: New fluconazole 150 mg tablet 150 mg PO Q3D Qty: 2 0RF doxycycline monohydrate 100 mg capsule 100 mg PO BID Qty: 20 0RF No Action oxybutynin chloride 10 mg tablet extended release 24hr 10 mg PO DAILY 90 Days Qty: 90 2RF doxycycline hyclate 100 mg tablet 100 mg PO DAILY Qty: 5 0RF cephalexin 500 mg capsule 500 mg PO TID Qty: 15 0RF oxycodone-acetaminophen [Percocet] 5-325 mg tablet 1 tab PO TID PRN (Reason: pain) Qty: 10 0RF Rx Instructions: Partial Fill upon patient request. tizanidine 4 mg tablet 2 tab PO BEDTIME glipizide 5 mg tablet extended release 24hr 1 tab PO DAILY ergocalciferol (vitamin D2) 1,250 mcg (50,000 unit) capsule 1 cap PO SA paroxetine HCl [Paxil] 40 mg tablet 1 tab PO DAILY lisinopril 20 mg tablet 20 mg PO DAILY valacyclovir 500 mg tablet 500 mg PO DAILY Jardiance 25 mg tablet 25 mg PO QAM ibuprofen 600 mg tablet 600 mg PO Q6H PRN (Reason: pain) Qty: 30 0RF doxycycline hyclate 100 mg tablet 100 mg PO BID Qty: 14 0RF cephalexin 500 mg tablet 500 mg PO QID Qty: 27 0RF ciprofloxacin HCl 0.3 % drops See Rx Instructions .ROUTE .COMPLEX 7 Days Qty: 5 0RF Rx Instructions: put 1-2 drps in affected eye(s) every 2hr up to 8 times/day x2days; then 4 times/day x5days clonidine HCl 0.1 mg tablet 0.1 mg PO TID cetirizine 10 mg tablet 10 mg PO DAILY menthol-zinc oxide [Calmoseptine] 0.44-20.6 % ointment 1 appl topical QID PRN (Reason: itching) Qty: 113 0RF oxycodone-acetaminophen [Percocet] 5-325 mg tablet 1 tab PO Q6H PRN (Reason: pain) Qty: 8 0RF Rx Instructions: Partial Fill upon patient request. Referrals: Avery Rebolledo [Physician] - 1 week Physician,Domo J [Physician] - 1 week
== END 2023-04-13 17:34 | disposition home or self-care (01) ==
PROVIDERS: Emergency Provider Emergency Medicine; PCP Pediatrics
DX: H04.551 Acquired stenosis of right nasolacrimal duct (principal); E11.9 Type 2 diabetes mellitus without complications; I10 Essential (primary) hypertension
CPT/HCPCS: 99282; 99283

== ENCOUNTER 2023-05-06 16:59 | Emergency (ER) | payer MEDICARE, MEDICAID, SELFPAY ==
[2023-05-06 17:56] VITALS: BP 150/102; PULSE 93; RESP 16; TEMP 37; O2SAT 100; BMI 33.8
--- NOTE | 2023-05-06 17:58 | ED.GENADULT ---
HPI - General Adult General Chief complaint: Wound/Laceration Stated complaint: left thumb laceration Time Seen by Provider: 05/06/23 19:15 Source: patient, RN notes reviewed and old records reviewed Mode of arrival: ambulatory Limitations: no limitations History of Present Illness HPI narrative: 37-year-old female presents for evaluation of a wound to her left thumb. Patient was chopping lettuce about 3 hours ago She accidentally cut the left 3rd thumb No active bleeding. She reports her tetanus is up-to-date Related Data Home Medications Medication Instructions Recorded Confirmed ergocalciferol (vitamin D2) 1,250 1 cap PO SA 05/19/21 11/22/22 mcg (50,000 unit) capsule glipizide 5 mg tablet, extended 1 tab PO DAILY 05/19/21 11/22/22 release 24 hr paroxetine HCl 40 mg tablet (Paxil) 1 tab PO DAILY depressive disorder 05/19/21 11/22/22 tizanidine 4 mg tablet 2 tab PO BEDTIME 05/19/21 11/22/22 cetirizine 10 mg tablet 10 mg PO DAILY 05/02/22 11/22/22 clonidine HCl 0.1 mg tablet 0.1 mg PO TID 05/02/22 11/22/22 empagliflozin 25 mg tablet 25 mg PO QAM 10/05/22 11/22/22 (Jardiance) lisinopril 20 mg tablet 20 mg PO DAILY 10/05/22 11/22/22 valacyclovir 500 mg tablet 500 mg PO DAILY 10/05/22 11/22/22 Previous Rx's Medication Instructions Recorded oxybutynin chloride 10 mg 10 mg PO DAILY 90 days #90 tabs 07/21/20 tablet,extended release 24 hr menthol 0.44 %-zinc oxide 20.6 % 1 appl topical QID PRN itching 07/12/22 topical ointment (Calmoseptine) #113 grams doxycycline hyclate 100 mg tablet 100 mg PO DAILY #5 tabs 09/30/22 ibuprofen 600 mg tablet 600 mg PO Q6H PRN pain #30 tabs 10/05/22 cephalexin 500 mg capsule 500 mg PO TID #15 caps 10/09/22 oxycodone-acetaminophen 5 mg-325 1 tab PO TID PRN pain #10 tabs 12/14/22 mg tablet (Percocet) oxycodone-acetaminophen 5 mg-325 1 tab PO Q6H PRN pain #8 tabs 12/20/22 mg tablet (Percocet) cephalexin 500 mg tablet 500 mg PO QID #27 tabs 01/12/23 ciprofloxacin HCl 0.3 % eye drops See Rx Instructions ophthalmic 01/12/23 (eye) .COMPLEX 7 days #5 mL doxycycline hyclate 100 mg tablet 100 mg PO BID #14 tabs 01/12/23 doxycycline monohydrate 100 mg 100 mg PO BID #20 caps 04/13/23 capsule fluconazole 150 mg tablet 150 mg PO Q3D 2 doses #2 tabs 04/13/23 Allergies Allergy/AdvReac Type Severity Reaction Status Date / Time Sulfa (Sulfonamide Allergy Unknown RASH Verified 01/12/23 16:03 Antibiotics) [SULFA (SULFONAMIDE ANTIBIOTICS)] Review of Systems Integumentary/Breasts: Skin/Breast: Reports wounds PMFSH Past Medical History Medical History Diabetes Fibromyalgia Elevated cholesterol HTN (hypertension) Nipple pain External hemorrhoids Breast pain, right Bipolar 2 disorder Surgical History History of incision and drainage (10/05/22) History of lymph node excision History of carpal tunnel release of both wrists History of appendectomy History of cholecystectomy History of tonsillectomy Family History Family History Maternal Uncle Kidney cancer Maternal Grandfather Bladder cancer Social History Social History Household Members: Family Housing: House Do you presently have visiting nurse or other home services: No Alcohol intake: never Patient Tobacco Use Status: Current everyday Tobacco user Tobacco use type: Cigarette Cigarette Packs Per Day: 1 Cigarettes Per Day: 10 Years Smoked: sine age 12 Smoked in Last 30 Days: Yes e-Cigarette/Vaping Use: Never Used Second Hand Smoke Exposure: Yes Use of substances other than those prescribed or required for medical reasons: No Substance Use Type: Marijuana Advance Directives: No Advance Directives Information Provided: No Patient : No service: No Sexual orientation: Don't Know Physical Exam ED Vital Signs: Vital Signs - 24 hr 05/06/23 17:56 Temperature 98.6 F Pulse Rate 93 Respiratory Rate 16 Blood Pressure 150/102 H Pulse Oximetry 100 Oxygen Delivery Method Room Air BMI result Body Mass Index 33.8 Const General: healthy appearing, comfortable, no acute distress, alert and awake Nutritional Appearance: well nourished Orientation/consciousness: patient oriented x3 HENMT Head: Yes normocephalic and Yes atraumatic Throat: Yes posterior oropharynx normal Eyes Eyelids: Yes eyelids normal Conjunctivae: conjunctivae normal Sclerae: sclerae normal Corneas: corneas normal Pupils: Equal, round and reactive pupils present EOM: EOMs intact bilaterally Neck Neck: Yes full ROM Resp Effort & Inspection: normal respiratory effort, able to speak in complete sentences and not labored Skin Other: 2 cm partial-thickness linear laceration to the ulnar side of the left thumb adjacent to the nail plate. No active bleeding General skin exam: elasticity normal Neuro General: patient oriented x3 Cranial nerves: Yes Equal, round and reactive pupils present and Yes Bilaterally intact EOM present Cognition (Neuro): normal cognition Extrem Other: Moving all extremities well without any obvious deformities Course Course Course Narrative: RME- 29-year-old female presents for evaluation of an accidental laceration to her left thumb that started at 4:30 p.m. today. She reports her tetanus is up-to-date Procedures Laceration Laceration 1: Site: hand Side (If applicable): left (Thumb) Size (cm): 2 Description: linear Depth: simple, single layer Pre-repair: wound explored and irrigated extensively Size (cm): other (Dermabond adhesive tissue) Technique: simple, interrupted Medical Decision Making Medical Decision Making MDM Narrative: 37-year-old female presents for evaluation of a small, superficial laceration to the left thumb. This was closed with Dermabond glue her tetanus is up-to-date. Differential Diagnosis Differential Diagnoses: The differential diagnosis associated with the presentation includes Laceration Skin tear Puncture wound Discharge Plan Discharge Clinical Impression: Laceration Patient Disposition: Home, Self-Care Instructions: Laceration (ED) Additional Instructions: Keep the area clean and dry. You should not get the area wet for the next 24 hours After that the glue will be water proof and she keeps wound sealed It should dissolve on its own in about 7 days Follow-up with your primary doctor Prescriptions: No Action oxybutynin chloride 10 mg tablet extended release 24hr 10 mg PO DAILY 90 Days Qty: 90 2RF doxycycline hyclate 100 mg tablet 100 mg PO DAILY Qty: 5 0RF cephalexin 500 mg capsule 500 mg PO TID Qty: 15 0RF oxycodone-acetaminophen [Percocet] 5-325 mg tablet 1 tab PO TID PRN (Reason: pain) Qty: 10 0RF Rx Instructions: Partial Fill upon patient request. tizanidine 4 mg tablet 2 tab PO BEDTIME glipizide 5 mg tablet extended release 24hr 1 tab PO DAILY ergocalciferol (vitamin D2) 1,250 mcg (50,000 unit) capsule 1 cap PO SA paroxetine HCl [Paxil] 40 mg tablet 1 tab PO DAILY lisinopril 20 mg tablet 20 mg PO DAILY valacyclovir 500 mg tablet 500 mg PO DAILY Jardiance 25 mg tablet 25 mg PO QAM ibuprofen 600 mg tablet 600 mg PO Q6H PRN (Reason: pain) Qty: 30 0RF fluconazole 150 mg tablet 150 mg PO Q3D Qty: 2 0RF doxycycline monohydrate 100 mg capsule 100 mg PO BID Qty: 20 0RF doxycycline hyclate 100 mg tablet 100 mg PO BID Qty: 14 0RF cephalexin 500 mg tablet 500 mg PO QID Qty: 27 0RF ciprofloxacin HCl 0.3 % drops See Rx Instructions .ROUTE .COMPLEX 7 Days Qty: 5 0RF Rx Instructions: put 1-2 drps in affected eye(s) every 2hr up to 8 times/day x2days; then 4 times/day x5days clonidine HCl 0.1 mg tablet 0.1 mg PO TID cetirizine 10 mg tablet 10 mg PO DAILY menthol-zinc oxide [Calmoseptine] 0.44-20.6 % ointment 1 appl topical QID PRN (Reason: itching) Qty: 113 0RF oxycodone-acetaminophen [Percocet] 5-325 mg tablet 1 tab PO Q6H PRN (Reason: pain) Qty: 8 0RF Rx Instructions: Partial Fill upon patient request.
--- NOTE | 2023-05-06 19:16 | PC.NURSE ---
pt a&Ox4, respirations even and unlabored. pt reports cutting up lettuce around 1630 and slicing her thumb on a knife. pt has small laceration to the left thumb, bleeding controlled. this rn cleaned laceration with normal saline and wrapped with non adherent gauze. pt reports 5/10 pain to the thumb. provider at bedside to glue laceration at this time.
[2023-05-06 19:38] VITALS: BP 144/95; PULSE 82; RESP 18; O2SAT 98
== END 2023-05-06 19:39 | disposition home or self-care (01) ==
PROVIDERS: Emergency Provider Internal Medicine; PCP Pediatrics
DX: S61.012A Laceration without foreign body of left thumb without damage to nail, initial encounter (principal); W26.0XXA Contact with knife, initial encounter; Y93.G3 Activity, cooking and baking; Y92.000 Kitchen of unspecified non-institutional (private) residence as the place of occurrence of the external cause; Y99.9 Unspecified external cause status
CPT/HCPCS: 12001; 99282; 99284

== ENCOUNTER 2023-08-05 09:08 | Outpatient (REF) | payer MEDICARE, MEDICAID, SELFPAY ==
[2023-08-05 15:20] LABS: C Reactive Protein 0.26 mg/dL (< or = 0.50)
[2023-08-06 17:08] LABS: Immunoglobulin A 229 mg/dL (47-310)
[2023-08-08 18:24] LABS: Gliadin Deamidated IgA Ab <1.0 U/mL; Gliadin Deamidated IgG Ab <1.0 U/mL; Transglutaminase Ab IgG <1.0 U/mL; Transglutaminase IgA <1.0 U/mL
[2023-08-09 13:14] LABS: Endomysial IgA Antibody Negative (Negative)
== END 2023-08-05 09:09 | disposition home or self-care (01) ==
LOC: HO.CHCLDS 09:08
PROVIDERS: Visit Provider Family Medicine
DX: R10.32 Left lower quadrant pain (principal)
CPT/HCPCS: 36415; 82784; 86140; 86231; 86258; 86364

== ENCOUNTER 2023-08-06 11:40 | Outpatient (REF) | payer MEDICARE, MEDICAID, SELFPAY ==
[2023-08-11 18:09] LABS: Calprotectin, Fecal 9 mcg/g
== END 2023-08-06 11:41 | disposition home or self-care (01) ==
LOC: HO.CHCLNP 11:40
PROVIDERS: Visit Provider Family Medicine
DX: R10.32 Left lower quadrant pain (principal)
CPT/HCPCS: 36415; 83993; 87329

== ENCOUNTER 2023-09-14 20:36 | Emergency (ER) | payer MEDICARE, MEDICAID, SELFPAY ==
[2023-09-14 20:56] VITALS: BP 144/99; PULSE 93; RESP 18; TEMP 36.7; O2SAT 97; BMI 33.8
[2023-09-14 21:22] LABS: MANUAL DIFF FLAG NO
[2023-09-14 21:24] LABS: Basophils Percent Auto 0.3 % (0-2); Eosinophils Absolute Auto 0.1 X10*3/uL (0.0-0.4); Eosinophils Percent Auto 0.6 % (0-4); Hematocrit 45.2 % (37.0-47.0); Hemoglobin 15.9 g/dl (12.0-16.0); Imm Gran Abs Auto 0.09 X10*3/uL (0.00-0.03); Imm Gran Pct Auto 0.8 % (0.0-0.4); Lymphocytes Absolute Auto 3.2 X10*3/uL (1.2-4.9); Mean Corpuscular HGB Conc 35.2 g/dl (31.0-35.0); Mean Corpuscular Hemoglobin 31.5 pg (27.0-33.0); Mean Corpuscular Volume 89.5 fL (80.0-98.0); Mean Platelet Volume 9.5 fL (9.4-12.3); Monocytes Absolute Auto 0.7 X10*3/uL (0.1-1.2); Monocytes Percent Auto 6.2 % (2-11); Neutrophils Absolute Auto 7.8 x10*3/uL (2.0-8.3); Neutrophils Percent Auto 65.1 % (45-73); Platelet Count 278 X10*3/uL (160-400); Red Blood Count 5.05 X10*6/uL (4.20-5.50); Red Cell Distribution Width 12.1 % (11.0-16.0)
[2023-09-14 21:25] LABS: Appearance Urine Cloudy; Color Urine Yellow; Glucose Urine UA >=1000 mg/dL (Negative); Leukocyte Esterase Urine Negative (Negative); Nitrite Urine Negative (Negative); Specific Gravity - Urine >= 1.030 (1.005-1.025); UMIC TRIGGER UACC YES; Urine Blood Negative (Negative); Urine Ketones Trace mg/dL (Negative); Urine Protein Trace mg/dL (Neg-Trace)
[2023-09-14 21:26] LABS: UPreg QC Valid YES; Urine Pregnancy NEGATIVE (NEGATIVE)
[2023-09-14 21:36] LABS: Alanine Aminotransferase 40 U/L (0-31); Albumin Level 4.7 g/dL (3.5-5.0); Alkaline Phosphatase 92 U/L (39-117); Anion Gap 12 (12-20); Aspartate Amino Transferase 25 U/L (5-31); Bilirubin Total 0.3 mg/dL (0.0-1.0); Blood Urea Nitrogen 7 mg/dL (9-16); Calcium 9.7 mg/dL (8.4-10.2); Carbon Dioxide 25 mmol/L (22-29); Chloride 104 mmol/L (96-108); Creatinine Clr Calc Pharmacy 90.2; Estimated Glomerular Filt Rate > 60; Glucose Random 233 mg/dL (60-115); Potassium 4.3 mmol/L (3.3-5.1); Sodium 137 mmol/L (135-145); Total Protein 7.9 g/dL (6.5-8.0)
[2023-09-14 22:09] LABS: Bacteria Urine Trace (None Seen); Hyaline Casts Urine 0-2 /LPF (0-2); RBC Urine 0-2 /HPF (0-2); WBC Urine 0-5 /HPF (0-5)
--- NOTE | 2023-09-15 01:16 | ED_ITS ---
HPI - Female Genitourinary General Chief complaint: Urogenital-Female Stated complaint: severe right side back pain to thigh Time Seen by Provider: 09/15/23 01:04 Source: patient Mode of arrival: ambulatory Limitations: no limitations History of Present Illness HPI Narrative: Patient comes to the emergency room complaining of right-sided flank pain since yesterday. Patient complaining of foul-smelling urine. Patient denies fever chills. Patient denies any trauma. Related Data Home Medications Medication Instructions Recorded Confirmed ergocalciferol (vitamin D2) 1,250 1 cap PO SA 05/19/21 11/22/22 mcg (50,000 unit) capsule glipizide 5 mg tablet, extended 1 tab PO DAILY 05/19/21 11/22/22 release 24 hr paroxetine HCl 40 mg tablet (Paxil) 1 tab PO DAILY depressive disorder 05/19/21 11/22/22 tizanidine 4 mg tablet 2 tab PO BEDTIME 05/19/21 11/22/22 cetirizine 10 mg tablet 10 mg PO DAILY 05/02/22 11/22/22 clonidine HCl 0.1 mg tablet 0.1 mg PO TID 05/02/22 11/22/22 empagliflozin 25 mg tablet 25 mg PO QAM 10/05/22 11/22/22 (Jardiance) lisinopril 20 mg tablet 20 mg PO DAILY 10/05/22 11/22/22 valacyclovir 500 mg tablet 500 mg PO DAILY 10/05/22 11/22/22 Previous Rx's Medication Instructions Recorded oxybutynin chloride 10 mg 10 mg PO DAILY 90 days #90 tabs 07/21/20 tablet,extended release 24 hr menthol 0.44 %-zinc oxide 20.6 % 1 appl topical QID PRN itching 07/12/22 topical ointment (Calmoseptine) #113 grams doxycycline hyclate 100 mg tablet 100 mg PO DAILY #5 tabs 09/30/22 ibuprofen 600 mg tablet 600 mg PO Q6H PRN pain #30 tabs 10/05/22 cephalexin 500 mg capsule 500 mg PO TID #15 caps 10/09/22 oxycodone-acetaminophen 5 mg-325 1 tab PO TID PRN pain #10 tabs 12/14/22 mg tablet (Percocet) oxycodone-acetaminophen 5 mg-325 1 tab PO Q6H PRN pain #8 tabs 12/20/22 mg tablet (Percocet) cephalexin 500 mg tablet 500 mg PO QID #27 tabs 01/12/23 ciprofloxacin HCl 0.3 % eye drops See Rx Instructions ophthalmic 01/12/23 (eye) .COMPLEX 7 days #5 mL doxycycline hyclate 100 mg tablet 100 mg PO BID #14 tabs 01/12/23 doxycycline monohydrate 100 mg 100 mg PO BID #20 caps 04/13/23 capsule fluconazole 150 mg tablet 150 mg PO Q3D 2 doses #2 tabs 04/13/23 cyclobenzaprine 10 mg tablet 10 mg PO TID PRN muscle spasm #10 09/15/23 tabs ketorolac 10 mg tablet 10 mg PO TID PRN pain #7 tabs 09/15/23 lidocaine 5 % topical patch 1 patch topical BID #15 ea 09/15/23 Allergies Allergy/AdvReac Type Severity Reaction Status Date / Time Sulfa (Sulfonamide Allergy Unknown RASH Verified 09/14/23 20:56 Antibiotics) [SULFA (SULFONAMIDE ANTIBIOTICS)] Review of Systems 2 Review of Systems: Constitutional : No Weight loss, No Fever, No Chills, No Night Sweats, No Fatigue, No Malaise ENT/Mouth : No Hearing loss, No Ear Pain, No Nasal Congestion, No Sinus Pain, No Hoarseness, No sore throat, No Rhinorrhea, No Swallowing Difficulty Eyes: No Eye Pain, No Swelling, No Redness, No Foreign Body, No Discharge, No Vision Changes Cardiovascular : No Chest Pain, No SOB, No Dyspnea on Exertion, No Orthopnea, No Edema, No Palpitations Respiratory : No Cough, No Sputum, No Wheezing, No Smoke Exposure, No Dyspnea Gastrointestinal : No Nausea, No Vomiting, No Diarrhea, No Constipation, No abdominal Pain, No Hematochezia, No Melena Genitourinary : Complaining of foul-smelling urine, No Dysuria, No Urinary Frequency, No Hematuria, No Urinary Incontinence, No Urgency, complaining of right-sided Flank Pain, No Urinary Flow Changes, No Hesitancy Musculoskeletal : No joint pain, No Myalgias, No Joint Swelling Skin : No Skin Lesions, No rash Neuro : No Weakness, No Numbness, No Paresthesias, No Loss of Consciousness, No Dizziness, No Headache Psych : No Anxiety/Panic, No Depression, No SI/HI/AH/VH, No Social Issues, Heme/Lymph: No Bruising, No Bleeding,No Lymphadenopathy Endocrine : No Polyuria, No Polydipsia, No Temperature Intolerance [facility] Past Medical History Medical History Diabetes Fibromyalgia Elevated cholesterol HTN (hypertension) Nipple pain External hemorrhoids Breast pain, right Bipolar 2 disorder Surgical History History of incision and drainage (10/05/22) History of lymph node excision History of carpal tunnel release of both wrists History of appendectomy History of cholecystectomy History of tonsillectomy Family History Family History Maternal Uncle Kidney cancer Maternal Grandfather Bladder cancer Social History Social History Household Members: Family Housing: House Do you presently have visiting nurse or other home services: No Alcohol intake: never Patient Tobacco Use Status: Current everyday Tobacco user Tobacco use type: Cigarette Cigarette Packs Per Day: 1 Cigarettes Per Day: 10 Years Smoked: sine age 12 e-Cigarette/Vaping Use: Never Used Second Hand Smoke Exposure: Yes Substance Use Type: Marijuana Advance Directives: No Advance Directives Information Provided: No service: No Sexual orientation: Don't Know Physical Exam 2 Vital Signs: Vital Signs: Last Vital Signs Temp 98.1 F 09/14/23 20:56 Pulse 93 09/14/23 20:56 Resp 18 09/14/23 20:56 BP 144/99 H 09/14/23 20:56 Pulse Ox 97 09/14/23 20:56 O2 Del Method Room Air 09/14/23 20:56 BMI result Body Mass Index 33.8 Const: Other: Appearance: Alert. Oriented X3. No acute distress. Eyes: Pupils equal, round and reactive to light. ENT: Pharynx normal. Neck: Normal inspection. Neck supple. No lymph nodes noted. No crepitus CVS: Normal heart rate and rhythm. Pulses normal. Normal S1 and S2 Respiratory: No respiratory distress. Breath sounds normal. No Wheezing. No rales Abdomen: Soft and nontender. No rigidity. No distention. Back: Pain to palpation to a specific spot on the right side of the middle back. No CVA tenderness Skin: Skin warm and dry. Normal skin color. Normal skin turgor. Extremities: No lower extremity edema. No Lacerations. No Rash Neuro: Oriented X 3. No motor deficit. No sensory deficit. Moving all extremities. No slurred speech. CN 2 through 12 grossly intact Psych: calm, cooperative, normal affect Medical Decision Making Medical Decision Making [facility] Narrative: -my interpretation of labs, patient's white blood cell count slightly elevated 12, likely reactive leukocytosis, normal chemistry, urinalysis is negative for UTI. -I discussed with the patient that it is possible that she may have passed a kidney stone versus renal infarct. Patient declined a CT scan. Patient states that she is wants pain medication and she would like to go home. -patient was given a dose of IM Toradol and cyclobenzaprine. -patient's source of pain most likely musculoskeletal. However, as mentioned above, patient declined CT scan Differential Diagnosis Differential Diagnoses: The differential diagnosis associated with the presentation includes (As above) Lab Data [facility] Lab Attestation statement: I reviewed the patient's lab results. 09/14/23 21:17 09/14/23 21:17 Labs: Lab Results 09/14/23 09/14/23 Range/Units 21:16 21:17 WBC 12.0 H (4.8-10.8) X10*3/uL RBC 5.05 (4.20-5.50) X10*6/uL Hgb 15.9 (12.0-16.0) g/dl Hct 45.2 (37.0-47.0) % MCV 89.5 (80.0-98.0) fL MCH 31.5 (27.0-33.0) pg MCHC 35.2 H (31.0-35.0) g/dl RDW 12.1 (11.0-16.0) % Plt Count 278 D (160-400) X10*3/uL MPV 9.5 (9.4-12.3) fL Immature Gran % (Auto) 0.8 H (0.0-0.4) % Neut % (Auto) 65.1 (45-73) % Lymph % (Auto) 27.0 (20-40) % Schuyler % (Auto) 6.2 (2-11) % Eos % (Auto) 0.6 (0-4) % Baso % (Auto) 0.3 (0-2) % Lymph # (Auto) 3.2 (1.2-4.9) X10*3/uL Schuyler # (Auto) 0.7 (0.1-1.2) X10*3/uL Eos # (Auto) 0.1 (0.0-0.4) X10*3/uL Baso # (Auto) 0.0 (0.0-0.2) X10*3/uL Abs Immat Gran (auto) 0.09 H (0.00-0.03) X10*3/uL Absolute Neuts (auto) 7.8 (2.0-8.3) x10*3/uL Absolute Nucleated RBC 0.000 (0.0-0.012) X10*3/uL Nucleated RBC % (auto) 0.0 (0.0-0.2) /100WBC Sodium 137 (135-145) mmol/L Potassium 4.3 (3.3-5.1) mmol/L Chloride 104 (96-108) mmol/L Carbon Dioxide 25 (22-29) mmol/L Anion Gap 12 (12-20) BUN 7 L (9-16) mg/dL Creatinine 0.84 (0.5-1.4) mg/dL Estim Creat Clear Calc 90.2 Estimated GFR > 60 Random Glucose 233 H (60-115) mg/dL Calcium 9.7 (8.4-10.2) mg/dL Total Bilirubin 0.3 (0.0-1.0) mg/dL AST 25 (5-31) U/L ALT 40 H (0-31) U/L Alkaline Phosphatase 92 (39-117) U/L Total Protein 7.9 (6.5-8.0) g/dL Albumin 4.7 (3.5-5.0) g/dL Urine Color Yellow Urine Appearance Cloudy Urine pH 7.0 (5.0-9.0) Ur Specific Maybell >= 1.030 H (1.005-1.025) Urine Protein Trace (Neg-Trace) mg/dL Urine Glucose (UA) >=1000 H (Negative) mg/dL Urine Ketones Trace (Negative) mg/dL Urine Blood Negative (Negative) Urine Nitrite Negative (Negative) Ur Leukocyte Esterase Negative (Negative) Urine RBC 0-2 (0-2) /HPF Urine WBC 0-5 (0-5) /HPF Ur Squamous Epith Cells 3-5 (0-2) /HPF Urine Bacteria Trace (None Seen) Hyaline Casts 0-2 (0-2) /LPF Urine Yeast Present Urine Test NEGATIVE (NEGATIVE) Tests considered The following testing was considered but not selected: I considered doing a CT scan to rule out renal infarct versus kidney stone. Patient declined CT. Discharge Plan Discharge Clinical Impression: Musculoskeletal pain Patient Disposition: Home, Self-Care Instructions: Musculoskeletal Pain (ED) Additional Instructions: A kidney stone could not be rule out, you declined a CT scan. Please follow-up with your primary care physician tomorrow. If you have any worsening or new symptoms, please return to the emergency room or call 911 Prescriptions: New ketorolac 10 mg tablet 10 mg PO TID PRN (Reason: pain) Qty: 7 0RF Rx Instructions: No use this medication with ibuprofen, naproxen or any NSAIDs, only Tylenol if needed cyclobenzaprine 10 mg tablet 10 mg PO TID PRN (Reason: muscle spasm) Qty: 10 0RF lidocaine 5 % adhesive patch,medicated 1 patch topical BID Qty: 15 0RF Rx Instructions: leave on most painful area for up to 12 hrs No Action oxybutynin chloride 10 mg tablet extended release 24hr 10 mg PO DAILY 90 Days Qty: 90 2RF doxycycline hyclate 100 mg tablet 100 mg PO DAILY Qty: 5 0RF cephalexin 500 mg capsule 500 mg PO TID Qty: 15 0RF oxycodone-acetaminophen [Percocet] 5-325 mg tablet 1 tab PO TID PRN (Reason: pain) Qty: 10 0RF Rx Instructions: Partial Fill upon patient request. tizanidine 4 mg tablet 2 tab PO BEDTIME glipizide 5 mg tablet extended release 24hr 1 tab PO DAILY ergocalciferol (vitamin D2) 1,250 mcg (50,000 unit) capsule 1 cap PO SA paroxetine HCl [Paxil] 40 mg tablet 1 tab PO DAILY lisinopril 20 mg tablet 20 mg PO DAILY valacyclovir 500 mg tablet 500 mg PO DAILY Jardiance 25 mg tablet 25 mg PO QAM ibuprofen 600 mg tablet 600 mg PO Q6H PRN (Reason: pain) Qty: 30 0RF fluconazole 150 mg tablet 150 mg PO Q3D Qty: 2 0RF doxycycline monohydrate 100 mg capsule 100 mg PO BID Qty: 20 0RF doxycycline hyclate 100 mg tablet 100 mg PO BID Qty: 14 0RF cephalexin 500 mg tablet 500 mg PO QID Qty: 27 0RF ciprofloxacin HCl 0.3 % drops See Rx Instructions .ROUTE .COMPLEX 7 Days Qty: 5 0RF Rx Instructions: put 1-2 drps in affected eye(s) every 2hr up to 8 times/day x2days; then 4 times/day x5days clonidine HCl 0.1 mg tablet 0.1 mg PO TID cetirizine 10 mg tablet 10 mg PO DAILY menthol-zinc oxide [Calmoseptine] 0.44-20.6 % ointment 1 appl topical QID PRN (Reason: itching) Qty: 113 0RF oxycodone-acetaminophen [Percocet] 5-325 mg tablet 1 tab PO Q6H PRN (Reason: pain) Qty: 8 0RF Rx Instructions: Partial Fill upon patient request.
[2023-09-15] MEDS: Cyclobenzaprine HCl 10 MG TABLET PO (01:21)
[2023-09-15] MEDS: Ketorolac Tromethamine 60 MG/2 ML VIAL IM (01:22)
[2023-09-15 01:25] VITALS: BP 145/87; PULSE 67; RESP 18; TEMP 36.6; O2SAT 98
== END 2023-09-15 01:33 | disposition home or self-care (01) ==
PROVIDERS: Emergency Provider Emergency Medicine; PCP Pediatrics
DX: M79.18 Myalgia, other site (principal); R10.9 Unspecified abdominal pain; R39.198 Other difficulties with micturition; M54.9 Dorsalgia, unspecified; E11.9 Type 2 diabetes mellitus without complications; I10 Essential (primary) hypertension; F31.81 Bipolar II disorder; Z79.899 Other long term (current) drug therapy
CPT/HCPCS: 36415; 80053; 81001; 81025; 85025; 96372; 96374; 99283; 99284; J1885

== ENCOUNTER 2023-10-01 10:17 | Outpatient (AMB) | payer MEDICARE, MEDICAID, SELFPAY ==
--- NOTE | 2023-10-01 10:19 | A.OFFVIS_ITS ---
Vital Signs 3 10/01/23 10:26 Height 5 ft 2 in Weight 182 lb 15.739 oz BMI 33.5 BP 128/82 Blood Pressure Location Rt brachial Position Sitting Pulse 78 Intake Visit Reasons: LL quad Abdominal pain Intake Note: Patient in office today as a new patient for abdominal pain. CC: Patient c/o LLQ abdominal pain, and lower abdominal pain associated with diarrhea worse with foods, and nausea. She states that the abdominal pain feels like she is been electrocuted. Onset of symptoms about 6 months ago. 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 She is referred by Agustina Iverson of [facility]. PMX Bipolar disorder Diabetes Fibromyalgia syndrome Hypertension High cholesterol External hemorrhoids * SURGICAL HISTORY Lymph node excision of the neck - s/p mono Carpal tunnel release bilateral Appendectomy Cholecystectomy Tonsillectomy * ALLERGIES Sulfa - rash metal taste * Tractive LABS: Laboratory Tests 09/14/23 21:17 WBC 12.0 H Hgb 15.9 Hct 45.2 Plt Count 278 D Estimated GFR > 60 Random Glucose 233 H Total Bilirubin 0.3 AST 25 ALT 40 H Alkaline Phosphatase 92 SHE HAD SOME LABS SENT BY THE PRIMARY care that showed a normal fecal calprotectin a negative celiac panel. TODAY'S VISIT Onset 6 mos ago with dyspepsia that would come and go. This continually worsened, initially foods like corn and starchy stuff bothered her but now it is everything. She alternates between no BM for as much as a week, to soft and watery stool that is multiple daily movements. She has associated nausea and vomiting when in the diarrhea phase. She also has pain in the left flank and across the bilateral lower quads. It feels like little electric shocks and she will jump with the pain. It is also stabbing/sharp ranging from 2/10-8/10. She still has the pain even when she does not move her bowels. BUt the pain is worse when she has athe diarrheal phase. In a good week she will vomit 2-3 times a week, on a bad week 2-3 times a day. She has lost about 10-15 lbs since this started. No med changes, no diet changes, no illness preceding. Limited stool samples. No imaging. She says multiple family members have TICS and she has a sister who has this and Crohns and IBS, other has TICS and gastroparesis, and 2 aunts with colostomy bags; both for TCS. There is a strong FHX of GB disease and the pt had her removed at age 22 - ? post flores onset. She has not tried any medications for this. ROV 6 weeks. [facility] Medical History Diabetes Fibromyalgia Elevated cholesterol HTN (hypertension) Nipple pain External hemorrhoids Breast pain, right Bipolar 2 disorder Surgical History History of incision and drainage (10/05/22) History of lymph node excision History of carpal tunnel release of both wrists History of appendectomy History of cholecystectomy History of tonsillectomy Family History Maternal Uncle Kidney cancer Maternal Grandfather Bladder cancer Social History Household Members: Family Housing: House Do you presently have visiting nurse or other home services: No Alcohol intake: never Patient Tobacco Use Status: Current everyday Tobacco user Tobacco use type: Cigarette Cigarette Packs Per Day: 1 Cigarettes Per Day: 10 Years Smoked: sine age 12 e-Cigarette/Vaping Use: Never Used Second Hand Smoke Exposure: Yes Substance Use Type: Marijuana service: No Sexual orientation: Don't Know Review of Systems Const Denies fatigue, Denies fever(s), Denies night sweats, Denies poor appetite and Reports weight loss ENT Reports Normal hearing present, Denies dental pain, Denies dysphagia, Denies hearing loss, Denies mouth pain, Denies odynophagia, Denies throat swelling, Denies tongue swelling and Reports other (Dentition adequate) Card Reports no additional complaints Resp Reports no additional complaints GI Details: Reports abdominal pain, Denies melena, Denies bloating, Denies hematochezia, Denies constipation, Denies GI cramping, Denies dysphagia, Denies excessive flatus, Denies early satiety, Reports dyspepsia, Reports heartburn, Denies diarrhea, Reports nausea, Denies odynophagia, Reports vomiting and Denies hematemesis Skin/Breast Denies pruritus, Denies lesions, Denies rash and Denies jaundice Neuro Reports Normal hearing present and Denies Abnormal speech present Endo Denies fatigue Aller/Immun Denies throat swelling and Denies tongue swelling Physical Exam Vital Signs: Last Vital Signs Pulse 78 10/01/23 10:26 BP 128/82 10/01/23 10:26 BMI result Body Mass Index 33.5 Const General: cooperative, no acute distress, well developed and well groomed Nutritional Appearance: well nourished and obese Orientation/consciousness: oriented to person, oriented to place and oriented to time Limitations: No language barrier HEENT Head: Yes normocephalic and Yes atraumatic Eyes General: appearance normal, both eyes and all related structures Pupils: Equal, round and reactive pupils present Neck Neck: Yes normal visual inspection and Yes no lymphadenopathy Thyroid: Thyroid normal Resp Effort & Inspection: normal respiratory effort and able to speak in complete sentences Auscultation: clear to auscultation bilaterally Cardio Rate: regular rate Rhythm: regular rhythm Heart sounds: Normal, physiologic split S2 sound present Peripheral pulses: radial pulses present and posterior tibial pulses present GI Inspection: No distended, No Abdominal panniculus present, Yes obesity and Yes striae Palpation (GI): Soft to palpation, nontender, no guarding, not rigid and No hepatosplenomegaly present Percussion: Yes normal to percussion Auscultation: normal bowel sounds Rectal Exam - Female: deferred Abdomen image: 2 1. surgical scars 2. 3. Skin General skin exam: no rashes or lesions noted, turgor normal, skin not dry, no jaundice, No spider nevi and no striae Rashes: no rashes Nails: normal Neuro General: oriented to person, oriented to place and oriented to time Cranial nerves: Yes Equal, round and reactive pupils present and Yes Normal hearing present Speech: No Abnormal speech present Extrem General: Yes normal to inspection, No clubbing, No cyanosis and No edema Psych Appearance: grossly normal and well kempt Mental Status: mental status grossly normal Speech and movement: Normal speech and movement present Affect: normal affect Attitude: cooperative Thought process: Normal thought process present and not confabulating Thought content: Normal thought content present Insight: Limited insight present (Psych) Judgement: Limited judgement present (Psych) Assessment & Plan Assessment & Plan (1) Diarrhea: Code(s): R19.7 - Diarrhea, unspecified Category: Medical (2) Abdominal pain: Code(s): R10.9 - Unspecified abdominal pain Category: Medical (3) Nausea and vomiting: Code(s): R11.2 - Nausea with vomiting, unspecified Category: Medical (4) Early satiety: Code(s): R68.81 - Early satiety Category: Medical (5) Diabetes: Code(s): E11.9 - Type 2 diabetes mellitus without complications Category: Medical (6) Family history of Crohn's disease: Code(s): Z83.79 - Family history of other diseases of the digestive system Category: Medical Plan Onset 6 mos ago with dyspepsia that would come and go. This continually worsened, initially foods like corn and starchy stuff bothered her but now it is everything. She alternates between no BM for as much as a week, to soft and watery stool that is multiple daily movements. She has associated nausea and vomiting when in the diarrhea phase. She also has pain in the left flank and across the bilateral lower quads. It feels like little electric shocks and she will jump with the pain. It is also stabbing/sharp ranging from 2/10-8/10. She still has the pain even when she does not move her bowels. BUt the pain is worse when she has athe diarrheal phase. In a good week she will vomit 2-3 times a week, on a bad week 2-3 times a day. She has lost about 10-15 lbs since this started. No med changes, no diet changes, no illness preceding. Limited stool samples. No imaging. She says multiple family members have TICS and she has a sister who has this and Crohns and IBS, other has TICS and gastroparesis, and 2 aunts with colostomy bags; both for TCS. There is a strong FHX of GB disease and the pt had her removed at age 22 - ? post flores onset. She has not tried any medications for this. ROV 6 weeks. Orders: Orders 2 Rast Allergen 10/02/23 R19.7 - Diarrhea, unspecified, R10.9 - Unspecified abdominal pain, R11.2 - Nausea with vomiting, unspecified, R68.81 - Early satiety NM gastric emptying study 10/01/23 R19.7 - Diarrhea, unspecified, R10.9 - Unspecified abdominal pain, R11.2 - Nausea with vomiting, unspecified, R68.81 - Early satiety Complete Blood Count Auto Diff 10/02/23 R68.81 - Early satiety, R11.2 - Nausea with vomiting, unspecified, R10.9 - Unspecified abdominal pain, E11.9 - Type 2 diabetes mellitus without complications GI Panel 10/07/23 R19.7 - Diarrhea, unspecified, R10.9 - Unspecified abdominal pain, R11.2 - Nausea with vomiting, unspecified, R68.81 - Early satiety Transglutaminase Ab IgG 10/02/23 R19.7 - Diarrhea, unspecified, R10.9 - Unspecified abdominal pain, R11.2 - Nausea with vomiting, unspecified, R68.81 - Early satiety Transglutaminase IgA 10/02/23 R19.7 - Diarrhea, unspecified, R10.9 - Unspecified abdominal pain, R11.2 - Nausea with vomiting, unspecified, R68.81 - Early satiety Blood Urea Nitrogen 10/02/23 R19.7 - Diarrhea, unspecified, R10.9 - Unspecified abdominal pain, R11.2 - Nausea with vomiting, unspecified, R68.81 - Early satiety Creatinine 10/02/23 R19.7 - Diarrhea, unspecified, R10.9 - Unspecified abdominal pain, R11.2 - Nausea with vomiting, unspecified, R68.81 - Early satiety Hemoglobin A1c 10/02/23 R10.9 - Unspecified abdominal pain, R19.7 - Diarrhea, unspecified EGD/[place] Combo - GI Use Only 10/01/23 R11.2 - Nausea with vomiting, unspecified, R19.7 - Diarrhea, unspecified, Z83.79 - Family history of other diseases of the digestive system Medications: New 2 dicyclomine 20 mg PO QID 120 tabs 6RF 30 days R19.7 - Diarrhea, unspecified, R10.9 - Unspecified abdominal pain Coding Level of Care Code New Pt Level 3 (72256) Diagnoses Diarrhea R19.7 Abdominal pain R10.9 Nausea and vomiting R11.2 Early satiety R68.81 Diabetes E11.9 Family history of Crohn's disease Z83.79
[2023-10-01 10:26] VITALS: BP 128/82; PULSE 78; BMI 33.5
== END 2023-10-01 11:25 | disposition home or self-care (01) ==
PROVIDERS: PCP Pediatrics; Visit Provider Nurse Practitioner
DX: R19.7 Diarrhea, unspecified (principal); R10.9 Unspecified abdominal pain; R11.2 Nausea with vomiting, unspecified; R68.81 Early satiety; E11.9 Type 2 diabetes mellitus without complications; Z83.79 Family history of other diseases of the digestive system
CPT/HCPCS: 99203; 99213

== ENCOUNTER → 2023-10-01 10:17 | Outpatient (BNVA) | payer MEDICARE, MEDICAID, SELFPAY | PROVIDERS: PCP Pediatrics; Visit Provider Nurse Practitioner | DX: R19.7 Diarrhea, unspecified (principal); R10.9 Unspecified abdominal pain; R11.2 Nausea with vomiting, unspecified; R68.81 Early satiety; E11.9 Type 2 diabetes mellitus without complications; Z83.79 Family history of other diseases of the digestive system | CPT/HCPCS: 99202 ==

== ENCOUNTER 2023-10-02 11:36 | Outpatient (REF) | payer MEDICARE, MEDICAID, SELFPAY ==
[2023-10-02 11:59] LABS: MANUAL DIFF FLAG NO
[2023-10-02 12:19] LABS: Basophils Absolute Auto 0.1 X10*3/uL (0.0-0.2); Basophils Percent Auto 0.5 % (0-2); Eosinophils Absolute Auto 0.1 X10*3/uL (0.0-0.4); Hematocrit 45.9 % (37.0-47.0); Imm Gran Abs Auto 0.16 X10*3/uL (0.00-0.03); Imm Gran Pct Auto 1.6 % (0.0-0.4); Lymphocytes Absolute Auto 3.3 X10*3/uL (1.2-4.9); Lymphocytes Percent Auto 33.9 % (20-40); Mean Corpuscular HGB Conc 34.9 g/dl (31.0-35.0); Mean Corpuscular Hemoglobin 31.3 pg (27.0-33.0); Mean Corpuscular Volume 89.6 fL (80.0-98.0); Mean Platelet Volume 9.9 fL (9.4-12.3); Monocytes Absolute Auto 0.6 X10*3/uL (0.1-1.2); Monocytes Percent Auto 5.9 % (2-11); Neutrophils Absolute Auto 5.6 x10*3/uL (2.0-8.3); Neutrophils Percent Auto 57.1 % (45-73); Platelet Count 251 X10*3/uL (160-400); Red Blood Count 5.12 X10*6/uL (4.20-5.50); Red Cell Distribution Width 11.9 % (11.0-16.0); White Blood Count 9.8 X10*3/uL (4.8-10.8)
[2023-10-02 12:46] LABS: Blood Urea Nitrogen 8 mg/dL (9-16); Estimated Glomerular Filt Rate > 60
[2023-10-02 13:03] LABS: Estimated Average Glucose 255 mg/dL; Hemoglobin A1c % 10.5 % (<6.0)
[2023-10-03 19:14] LABS: Transglutaminase Ab IgG <1.0 U/mL; Transglutaminase IgA <1.0 U/mL
== END 2023-10-02 11:37 | disposition home or self-care (01) ==
LOC: HO.LAB 11:36
PROVIDERS: Visit Provider Nurse Practitioner
DX: R19.7 Diarrhea, unspecified (principal); R10.9 Unspecified abdominal pain; R11.2 Nausea with vomiting, unspecified; R68.81 Early satiety; E11.9 Type 2 diabetes mellitus without complications
CPT/HCPCS: 36415; 82565; 83036; 84520; 85025; 86003; 86364

== ENCOUNTER 2023-10-07 12:19 | Outpatient (REF) | payer MEDICARE, MEDICAID, SELFPAY ==
[2023-10-07 15:30] LABS: Adenovirus F 40/41 Not Detected (Not Detect.); Astrovirus Not Detected (Not Detect.); Campylobacter Not Detected (Not Detect.); Cryptosporidium Not Detected (Not Detect.); Cyclospora cayetanensis Not Detected (Not Detect.); E. coli EAEC Not Detected (Not Detect.); E. coli EPEC Not Detected (Not Detect.); E. coli ETEC Not Detected (Not Detect.); E. coli STEC Not Detected (Not Detect.); Entamoeba histolytica Not Detected (Not Detect.); Giardia lamblia Not Detected (Not Detect.); Norovirus GI/GII Not Detected (Not Detect.); Plesiomonas shigelloides Not Detected (Not Detect.); Rotavirus A Not Detected (Not Detect.); Salmonella Not Detected (Not Detect.); Sapovirus Not Detected (Not Detect.); Shigella sp./EIEC Not Detected (Not Detect.); Vibrio Not Detected (Not Detect.); Vibrio Cholerae Not Detected (Not Detect.); Yersinia enterocolitica Not Detected (Not Detect.)
== END 2023-10-07 12:20 | disposition home or self-care (01) ==
LOC: HO.LNP 12:19
PROVIDERS: Visit Provider Nurse Practitioner
DX: R19.7 Diarrhea, unspecified (principal); R10.9 Unspecified abdominal pain; R11.2 Nausea with vomiting, unspecified; R68.81 Early satiety
CPT/HCPCS: 87507

== ENCOUNTER 2023-11-12 10:46 | Outpatient (AMB) | payer MEDICARE, MEDICAID, SELFPAY ==
[2023-11-12 10:48] VITALS: BP 140/86; PULSE 81; BMI 33.5
--- NOTE | 2023-11-12 10:48 | MHC.OFFVIS ---
Vital Signs 11/12/23 10:48 Height 5 ft 2 in Weight 183 lb 6.793 oz BMI 33.5 BP 140/86 H Blood Pressure Location Lt brachial Position Sitting Pulse 81 Intake Visit Reasons: N/V/D Intake Note: Mai returns to in office visit today in follow up of nausea, diarrhea, and labs. CC: Patient c/o nausea, vomiting every time she has a BM, mid abdominal pain, and LUQ abd pain. She states that every times she eats she goes right to the bathroom. Quality Process Lead Required: No Accompanied by: Self / Same As Patient Allergies Sulfa (Sulfonamide Antibiotics) [SULFA (SULFONAMIDE ANTIBIOTICS)] Allergy (Unknown, Verified 11/27/23 10:22) RASH HPI HPI N/V/D: Details: Assessment & Plan (1) Diarrhea: Code(s): R19.7 - Diarrhea, unspecified Category: Medical (2) Abdominal pain: Code(s): R10.9 - Unspecified abdominal pain Category: Medical (3) Nausea and vomiting: Code(s): R11.2 - Nausea with vomiting, unspecified Category: Medical (4) Early satiety: Code(s): R68.81 - Early satiety Category: Medical (5) Diabetes: Code(s): E11.9 - Type 2 diabetes mellitus without complications Category: Medical (6) Family history of Crohn's disease: Code(s): Z83.79 - Family history of other diseases of the digestive system Category: Medical Plan Onset 6 mos ago with dyspepsia that would come and go. This continually worsened, initially foods like corn and starchy stuff bothered her but now it is everything. She alternates between no BM for as much as a week, to soft and watery stool that is multiple daily movements. She has associated nausea and vomiting when in the diarrhea phase. She also has pain in the left flank and across the bilateral lower quads. It feels like little electric shocks and she will jump with the pain. It is also stabbing/sharp ranging from 2/10-8/10. She still has the pain even when she does not move her bowels. BUt the pain is worse when she has athe diarrheal phase. In a good week she will vomit 2-3 times a week, on a bad week 2-3 times a day. She has lost about 10-15 lbs since this started. No med changes, no diet changes, no illness preceding. Limited stool samples. No imaging. She says multiple family members have TICS and she has a sister who has this and Crohns and IBS, other has TICS and gastroparesis, and 2 aunts with colostomy bags; both for TCS. There is a strong FHX of GB disease and the pt had her removed at age 22 - ? post flores onset. She has not tried any medications for this. ROV 6 weeks. Orders: Orders Rast Allergen 10/02/23 R19.7 - Diarrhea, unspecified, R10.9 - Unspecified abdominal pain, R11.2 - Nausea with vomiting, unspecified, R68.81 - Early satiety NM gastric emptying study 10/01/23 R19.7 - Diarrhea, unspecified, R10.9 - Unspecified abdominal pain, R11.2 - Nausea with vomiting, unspecified, R68.81 - Early satiety Complete Blood Count Auto Diff 10/02/23 R68.81 - Early satiety, R11.2 - Nausea with vomiting, unspecified, R10.9 - Unspecified abdominal pain, E11.9 - Type 2 diabetes mellitus without complications GI Panel 10/07/23 R19.7 - Diarrhea, unspecified, R10.9 - Unspecified abdominal pain, R11.2 - Nausea with vomiting, unspecified, R68.81 - Early satiety Transglutaminase Ab IgG 10/02/23 R19.7 - Diarrhea, unspecified, R10.9 - Unspecified abdominal pain, R11.2 - Nausea with vomiting, unspecified, R68.81 - Early satiety Transglutaminase IgA 10/02/23 R19.7 - Diarrhea, unspecified, R10.9 - Unspecified abdominal pain, R11.2 - Nausea with vomiting, unspecified, R68.81 - Early satiety Blood Urea Nitrogen 10/02/23 R19.7 - Diarrhea, unspecified, R10.9 - Unspecified abdominal pain, R11.2 - Nausea with vomiting, unspecified, R68.81 - Early satiety Creatinine 10/02/23 R19.7 - Diarrhea, unspecified, R10.9 - Unspecified abdominal pain, R11.2 - Nausea with vomiting, unspecified, R68.81 - Early satiety Hemoglobin A1c 10/02/23 R10.9 - Unspecified abdominal pain, R19.7 - Diarrhea, unspecified EGD/[place] Combo - GI Use Only 10/01/23 R11.2 - Nausea with vomiting, unspecified, R19.7 - Diarrhea, unspecified, Z83.79 - Family history of other diseases of the digestive system Medications: New dicyclomine 20 mg PO QID 120 tabs 6RF 30 days R19.7 - Diarrhea, unspecified, R10.9 - Unspecified abdominal pain LABS Laboratory Tests 08/06/23 10/02/23 11:00 11:58 WBC 9.8 Hgb 16.0 Hct 45.9 Plt Count 251 Estimated GFR > 60 Hemoglobin A1c % 10.5 H Stool Calprotectin 9 Tiss Transglutamin IgG <1.0 Tiss Transglutamin IgA <1.0 10/07/23-[address]: ORDERED: GI Panel Test Result Flag Reference Campylobacter Not Detected Not Detect. P. shigelloides Not Detected Not Detect. Salmonella Not Detected Not Detect. Vibrio Not Detected Not Detect. Vibrio Cholerae Not Detected Not Detect. Y. enterocolit. Not Detected Not Detect. E. coli EAEC Not Detected Not Detect. E. coli EPEC Not Detected Not Detect. E. coli ETEC Not Detected Not Detect. E. coli STEC Not Detected Not Detect. E. coli O157 Not applicable Not Detect. E. coli containing the O157 antigen are a subset of Shiga-like toxin-producing E. coli (STEC). Shigella/EIEC Not Detected Not Detect. Cryptosporidium Not Detected Not Detect. Cyclospora Not Detected Not Detect. E. histolytica Not Detected Not Detect. Giardia lamblia Not Detected Not Detect. Adenovirus Not Detected Not Detect. Astrovirus Not Detected Not Detect. Norovirus Not Detected Not Detect. Rotavirus A Not Detected Not Detect. Sapovirus Not Detected Not Detect. RAST PANEL SHOWS NO SIGNIFICANT FOOD ALLERGIES GES scheduled for 11/20/2023 EGD/COLONOSCOPY not yet scheduled TODAYS VISIT The clinton did not give any relief but no s/e. She has CIC right now. Has GES coming up, has not heard re: EGD/colonoscopy or CT -re sent note to schedulers. Will try reglan 5mg qidachs since A1c is very high at 10% (but was higher prior to ozempic at 12%). ROV after GES 11/19 [facility] Medical History Diabetes Fibromyalgia Elevated cholesterol HTN (hypertension) Nipple pain External hemorrhoids Breast pain, right Bipolar 2 disorder Surgical History History of incision and drainage (10/05/22) History of lymph node excision History of carpal tunnel release of both wrists History of appendectomy History of cholecystectomy History of tonsillectomy Family History Maternal Uncle Kidney cancer Maternal Grandfather Bladder cancer Social History Household Members: Family Housing: House Do you presently have visiting nurse or other home services: No Alcohol intake: never Patient Tobacco Use Status: Current everyday Tobacco user Tobacco use type: Cigarette Cigarette Packs Per Day: 1 Cigarettes Per Day: 10 Years Smoked: sine age 12 e-Cigarette/Vaping Use: Never Used Second Hand Smoke Exposure: Yes Substance Use Type: Marijuana service: No Sexual orientation: Don't Know Review of Systems Const Denies fatigue, Denies fever(s), Denies night sweats, Denies poor appetite and Denies weight loss ENT Reports Normal hearing present, Denies dental pain, Denies dysphagia, Denies hearing loss, Denies mouth pain, Denies odynophagia, Denies throat swelling, Denies tongue swelling and Reports other (Dentition adequate) Card Reports no additional complaints Resp Reports no additional complaints GI Details: Denies abdominal pain, Denies melena, Reports bloating, Denies hematochezia, Denies constipation, Denies GI cramping, Denies dysphagia, Denies excessive flatus, Denies early satiety, Reports heartburn, Reports diarrhea, Reports nausea, Denies odynophagia, Reports vomiting and Denies hematemesis Skin/Breast Denies pruritus, Denies lesions, Denies rash and Denies jaundice Neuro Reports Normal hearing present and Denies Abnormal speech present Endo Denies fatigue Aller/Immun Denies throat swelling and Denies tongue swelling Physical Exam Vital Signs: Last Vital Signs Pulse 81 11/12/23 10:48 BP 140/86 H 11/12/23 10:48 BMI result Body Mass Index 33.5 Const General: cooperative, no acute distress, well developed and well groomed Nutritional Appearance: well nourished and obese Orientation/consciousness: oriented to person, oriented to place and oriented to time Limitations: No language barrier HEENT Head: Yes normocephalic and Yes atraumatic Eyes General: appearance normal, both eyes and all related structures Pupils: Equal, round and reactive pupils present Neck Neck: Yes normal visual inspection and Yes no lymphadenopathy Thyroid: Thyroid normal Resp Effort & Inspection: normal respiratory effort and able to speak in complete sentences Auscultation: clear to auscultation bilaterally Cardio Rate: regular rate Rhythm: regular rhythm Heart sounds: Normal, physiologic split S2 sound present Peripheral pulses: radial pulses present and posterior tibial pulses present GI Inspection: No distended, No Abdominal panniculus present and Yes obesity Palpation (GI): Soft to palpation, nontender, no guarding, not rigid and No hepatosplenomegaly present Percussion: Yes normal to percussion Auscultation: normal bowel sounds Rectal Exam - Female: deferred Skin General skin exam: no rashes or lesions noted, turgor normal, skin not dry, no jaundice, No spider nevi and no striae Rashes: no rashes Nails: normal Neuro General: oriented to person, oriented to place and oriented to time Cranial nerves: Yes Equal, round and reactive pupils present and Yes Normal hearing present Speech: No Abnormal speech present Extrem General: Yes normal to inspection, No clubbing, No cyanosis and No edema Psych Appearance: grossly normal and well kempt Mental Status: mental status grossly normal Speech and movement: Normal speech and movement present Affect: normal affect Attitude: cooperative Thought process: Normal thought process present and not confabulating Thought content: Normal thought content present Insight: Fair insight present (Psych) and Limited insight present (Psych) Judgement: Fair judgement present (Psych) and Limited judgement present (Psych) Results Reviewed Results Reviewed: Laboratory Tests 08/06/23 10/02/23 11:00 11:58 WBC 9.8 Hgb 16.0 Hct 45.9 Plt Count 251 Estimated GFR > 60 Hemoglobin A1c % 10.5 H Stool Calprotectin 9 Tiss Transglutamin IgG <1.0 Tiss Transglutamin IgA <1.0 10/07/23-[address]: ORDERED: GI Panel Test Result Flag Reference Campylobacter Not Detected Not Detect. P. shigelloides Not Detected Not Detect. Salmonella Not Detected Not Detect. Vibrio Not Detected Not Detect. Vibrio Cholerae Not Detected Not Detect. Y. enterocolit. Not Detected Not Detect. E. coli EAEC Not Detected Not Detect. E. coli EPEC Not Detected Not Detect. E. coli ETEC Not Detected Not Detect. E. coli STEC Not Detected Not Detect. E. coli O157 Not applicable Not Detect. E. coli containing the O157 antigen are a subset of Shiga-like toxin-producing E. coli (STEC). Shigella/EIEC Not Detected Not Detect. Cryptosporidium Not Detected Not Detect. Cyclospora Not Detected Not Detect. E. histolytica Not Detected Not Detect. Giardia lamblia Not Detected Not Detect. Adenovirus Not Detected Not Detect. Astrovirus Not Detected Not Detect. Norovirus Not Detected Not Detect. Rotavirus A Not Detected Not Detect. Sapovirus Not Detected Not Detect. RAST PANEL SHOWS NO SIGNIFICANT FOOD ALLERGIES Assessment & Plan Assessment & Plan (1) Nausea and vomiting: Code(s): R11.2 - Nausea with vomiting, unspecified Category: Medical (2) Early satiety: Code(s): R68.81 - Early satiety Category: Medical (3) Abdominal pain: Code(s): R10.9 - Unspecified abdominal pain Category: Medical (4) Facial infection: Code(s): L08.9 - Local infection of the skin and subcutaneous tissue, unspecified Category: Medical Plan The bentyl did not give any relief but no s/e. She has CIC right now. Has GES coming up, has not heard re: EGD/colonoscopy or CT -re sent note to schedulers. Will try reglan 5mg qidachs since A1c is very high at 10% (but was higher prior to ozempic at 12%). ROV after GES 5/22 GES scheduled for 11/20/2023 EGD/COLONOSCOPY not yet scheduled Orders: Orders CT abdomen pelvis w IV con 11/12/23 R10.9 - Unspecified abdominal pain Medications: New metoclopramide HCl (Reglan) 5 mg PO QIDACHS 120 tabs 3RF R11.2 - Nausea with vomiting, unspecified, R68.81 - Early satiety doxycycline hyclate 100 mg PO BID 20 caps 0RF 10 days L08.9 - Local infection of the skin and subcutaneous tissue, unspecified Coding Level of Care Code Est Pt Level 3 (68276) Diagnoses Nausea and vomiting R11.2 Early satiety R68.81 Abdominal pain R10.9 Facial infection L08.9
== END 2023-11-12 11:58 | disposition home or self-care (01) ==
PROVIDERS: PCP Pediatrics; Visit Provider Nurse Practitioner
DX: R11.2 Nausea with vomiting, unspecified (principal); R68.81 Early satiety; R10.9 Unspecified abdominal pain; L08.9 Local infection of the skin and subcutaneous tissue, unspecified
CPT/HCPCS: 99213

== ENCOUNTER → 2023-11-12 10:46 | Outpatient (BNVA) | payer MEDICARE, MEDICAID, SELFPAY | PROVIDERS: PCP Pediatrics; Visit Provider Nurse Practitioner | DX: R11.2 Nausea with vomiting, unspecified (principal); R68.81 Early satiety; R10.9 Unspecified abdominal pain; L08.9 Local infection of the skin and subcutaneous tissue, unspecified | CPT/HCPCS: 99212 ==

== ENCOUNTER → 2023-11-20 07:40 | Outpatient (REF) | payer MEDICARE, MEDICAID, SELFPAY ==
--- NOTE | ~2023-11-20 | NM_ITS ---
EXAMINATION: RADIONUCLIDE SOLID FOOD GASTRIC EMPTYING 4-HOUR STUDY CLINICAL INFORMATION: Diarrhea, unspecified. COMPARISON: No previous gastric emptying study is available for comparison. TECHNIQUE: A standard meal consisting of 4 oz of Egg Beaters brand equivalent tagged was 4.0 mCi Tc-99m Sulfur Colloid, 8 oz water and 2 slices of toast with jelly was administered orally to the patient. Images were obtained using a dual head gamma camera in the anterior and posterior projections over of the stomach immediately post ingestion and at hourly intervals up to 4 hours post ingestion. The anterior and posterior counts at each time interval were averaged using the geometric mean and expressed as percentage of the immediate post ingestion counts. FINDINGS: There is good visualization of activity in the stomach immediately post ingestion. As the study progresses, there is good clearance of activity from the stomach and visualization of progressively increasing small bowel activity. By the end of the study, there is almost no retention noted in the stomach. Retention in the stomach at each time interval was: 1 hour 38% (normal 37%-90%) 2 hours 11% (normal 30%-60%) 3 hours 9% 4 hours 4% (normal 0%-10%) NM/NM gastric emptying study IMPRESSION: Normal 4-hour solid food gastric emptying study. Gastric emptying study grading per JNMT Consensus Recommendations in 2008: https://tech.snmjournals.org/content/36/1/44 Grade 1 (mild retention): 11-20% at 4 hours Grade 2 (moderate retention): 21-35% at 4 hours Grade 3 (severe retention): 36-50% at 4 hours Grade 4 (very severe retention): >50% retention at 4 hours
== END ==
LOC: HO.NUCMED 07:40
PROVIDERS: PCP Pediatrics; Visit Provider Nurse Practitioner
DX: R10.9 Unspecified abdominal pain (principal); R19.7 Diarrhea, unspecified; R11.2 Nausea with vomiting, unspecified; R68.81 Early satiety
CPT/HCPCS: 78264; A9541

== ENCOUNTER 2023-11-27 10:12 | Outpatient (AMB) | payer MEDICARE, MEDICAID, SELFPAY ==
[2023-11-27 10:19] VITALS: BP 130/85; PULSE 87; BMI 33.3
--- NOTE | 2023-11-27 10:19 | A.OFFVIS_ITS ---
Vital Signs 11/27/23 10:19 Height 5 ft 2 in Weight 182 lb 1.629 oz BMI 33.3 BP 130/85 Blood Pressure Location Rt brachial Position Sitting Pulse 87 Intake Visit Reasons: GES follow up Intake Note: Mai returns to in office visit today in follow up of gastric emptying scan. CC: Patient states that lately after she eats she feels like she has a brick on her epigastric area. She continues to c/o nausea, vomiting, abdominal pain, and LUQ abd pain. 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 Required: No Accompanied by: Self / Same As Patient Allergies Sulfa (Sulfonamide Antibiotics) [SULFA (SULFONAMIDE ANTIBIOTICS)] Allergy (Unknown, Verified 11/27/23 10:22) RASH HPI HPI GES follow up: Details: Assessment & Plan (1) Nausea and vomiting: Code(s): R11.2 - Nausea with vomiting, unspecified Category: Medical (2) Early satiety: Code(s): R68.81 - Early satiety Category: Medical (3) Abdominal pain: Code(s): R10.9 - Unspecified abdominal pain Category: Medical (4) Facial infection: Code(s): L08.9 - Local infection of the skin and subcutaneous tissue, unspecified Category: Medical Orders: Orders CT abdomen pelvis w IV con Today R10.9 - Unspecified abdominal pain Medications: New metoclopramide HCl (Reglan) 5 mg PO QIDACHS 120 tabs 3RF R11.2 - Nausea with vomiting, unspecified, R68.81 - Early satiety doxycycline hyclate 100 mg PO BID 10 days 20 caps 0RF L08.9 - Local infection of the skin and subcutaneous tissue, unspecified The bentyl did not give any relief but no s/e. She has CIC right now. Has GES coming up, has not heard re: EGD/colonoscopy or CT -re sent note to schedulers. Will try reglan 5mg qidachs since A1c is very high at 10% (but was higher prior to ozempic at 12%). ROV after GES 11/19 GASTRIC EMPTYING STUDY 11/20/23 IMPRESSION: Normal 4-hour solid food gastric emptying study. CT ABDOMEN AND PELVIS Scheduled for 01/13/2024 COLONOOSCOPY Scheduled for March TODAY'S VISIT She found that the Reglan at 5 mg helped a little bit. She has had absolutely no adverse effects so will increase it to 10 mg 4 times a day. In the meantime she suffering fairly severe constipation skipping days and having only small rabbit pellet-like stools. This seems to be causing her a great deal of upper pain and bloating that sometimes will move or become less bloated if she massages her upper belly. She has failed senna, bisacodyl, Dulcolax, MiraLax, Colace and fiber saw start her on low-dose Linzess to address the constipation. Again she is also on Ozempic for diabetes and this is a contributing factor to her symptoms. We reviewed the gastric emptying study in it appears to be normal but I am going to continue the Reglan for the constipation and the nausea and vomiting. She has a CT scan coming up in December and a colonoscopy booked in March. Return office visit in 4 weeks [facility] Medical History Diabetes Fibromyalgia Elevated cholesterol HTN (hypertension) Nipple pain External hemorrhoids Breast pain, right Bipolar 2 disorder Surgical History History of incision and drainage (10/05/22) History of lymph node excision History of carpal tunnel release of both wrists History of appendectomy History of cholecystectomy History of tonsillectomy Family History Maternal Uncle Kidney cancer Maternal Grandfather Bladder cancer Social History Household Members: Family Housing: House Do you presently have visiting nurse or other home services: No Alcohol intake: never Patient Tobacco Use Status: Current everyday Tobacco user Tobacco use type: Cigarette Cigarette Packs Per Day: 1 Cigarettes Per Day: 10 Years Smoked: sine age 12 e-Cigarette/Vaping Use: Never Used Second Hand Smoke Exposure: Yes Substance Use Type: Marijuana service: No Sexual orientation: Don't Know Review of Systems Const Denies fatigue, Denies fever(s), Denies night sweats, Reports poor appetite and Reports weight loss (Due to Ozempic therapy) ENT Reports Normal hearing present, Denies dental pain, Denies dysphagia, Denies hearing loss, Denies mouth pain, Denies odynophagia, Denies throat swelling, Denies tongue swelling and Reports other (Dentition adequate) Card Reports no additional complaints Resp Reports no additional complaints GI Details: Reports abdominal pain, Denies melena, Reports bloating, Denies hematochezia, Reports constipation, Denies GI cramping, Denies dysphagia, Denies excessive flatus, Denies early satiety, Reports heartburn, Denies diarrhea, Reports nausea, Denies odynophagia, Reports vomiting and Denies hematemesis Skin/Breast Denies pruritus, Denies lesions, Denies rash and Denies jaundice Neuro Reports Normal hearing present and Denies Abnormal speech present Endo Denies fatigue Aller/Immun Denies throat swelling and Denies tongue swelling Physical Exam Vital Signs: Last Vital Signs Pulse 87 11/27/23 10:19 BP 130/85 11/27/23 10:19 BMI result Body Mass Index 33.3 Const General: cooperative, no acute distress, well developed and well groomed Nutritional Appearance: well nourished and obese Orientation/consciousness: oriented to person, oriented to place and oriented to time Limitations: No language barrier HEENT Head: Yes normocephalic and Yes atraumatic Eyes General: appearance normal, both eyes and all related structures Pupils: Equal, round and reactive pupils present Neck Neck: Yes normal visual inspection and Yes no lymphadenopathy Thyroid: Thyroid normal Resp Effort & Inspection: normal respiratory effort and able to speak in complete sentences Auscultation: clear to auscultation bilaterally Cardio Rate: regular rate Rhythm: regular rhythm Heart sounds: Normal, physiologic split S2 sound present Peripheral pulses: radial pulses present and posterior tibial pulses present GI Inspection: No distended, Yes Abdominal panniculus present and Yes obesity Palpation (GI): Soft to palpation, nontender, no guarding, not rigid and No hepatosplenomegaly present Percussion: Yes normal to percussion Auscultation: normal bowel sounds Rectal Exam - Female: deferred Skin General skin exam: no rashes or lesions noted, turgor normal, skin not dry, no jaundice, No spider nevi and no striae Rashes: no rashes Nails: normal Neuro General: oriented to person, oriented to place and oriented to time Cranial nerves: Yes Equal, round and reactive pupils present and Yes Normal hearing present Speech: No Abnormal speech present Extrem General: Yes normal to inspection, No clubbing, No cyanosis and No edema Psych Appearance: grossly normal and well kempt Mental Status: mental status grossly normal Speech and movement: Normal speech and movement present Affect: normal affect Attitude: cooperative Thought process: Normal thought process present and not confabulating Thought content: Normal thought content present Insight: Fair insight present (Psych) and Limited insight present (Psych) Judgement: Fair judgement present (Psych) and Limited judgement present (Psych) Results Reviewed Results Reviewed: GASTRIC EMPTYING STUDY 11/20/23 IMPRESSION: Normal 4-hour solid food gastric emptying study. Assessment & Plan Assessment & Plan (1) Nausea and vomiting: Code(s): R11.2 - Nausea with vomiting, unspecified Category: Medical (2) Abdominal pain: Code(s): R10.9 - Unspecified abdominal pain Category: Medical (3) Early satiety: Code(s): R68.81 - Early satiety Category: Medical (4) Family history of Crohn's disease: Code(s): Z83.79 - Family history of other diseases of the digestive system Category: Medical (5) Chronic idiopathic constipation: Code(s): K59.04 - Chronic idiopathic constipation Category: Medical Plan She found that the Reglan at 5 mg helped a little bit. She has had absolutely no adverse effects so will increase it to 10 mg 4 times a day. In the meantime she suffering fairly severe constipation skipping days and having only small rabbit pellet-like stools. This seems to be causing her a great deal of upper pain and bloating that sometimes will move or become less bloated if she massages her upper belly. She has failed senna, bisacodyl, Dulcolax, MiraLax, Colace and fiber saw start her on low-dose Linzess to address the constipation. Again she is also on Ozempic for diabetes and this is a contributing factor to her symptoms. We reviewed the gastric emptying study in it appears to be normal but I am going to continue the Reglan for the constipation and the nausea and vomiting. She has a CT scan coming up in December and a colonoscopy booked in March. Return office visit in [address] ABDOMEN AND PELVIS Scheduled for 01/13/2024 COLONOOSCOPY Scheduled for March [facility] Medications: New metoclopramide HCl (Reglan) 10 mg PO QIDACHS 120 tabs 6RF R11.2 - Nausea with vomiting, unspecified linaclotide (Linzess) 72 mcg PO QAM 30 caps 3RF K59.04 - Chronic idiopathic constipation Discontinued metoclopramide HCl (Reglan) Discontinued Reason: Doctor's Order 5 mg PO QIDACHS 120 tabs 3RF R11.2 - Nausea with vomiting, unspecified, R68.81 - Early satiety Coding Level of Care Code Est Pt Level 3 (43450) Diagnoses Nausea and vomiting R11.2 Abdominal pain R10.9 Early satiety R68.81 Family history of Crohn's disease Z83.79 Chronic idiopathic constipation K59.04
== END 2023-11-27 10:48 | disposition home or self-care (01) ==
PROVIDERS: PCP Pediatrics; Referring Provider Pediatrics; Visit Provider Nurse Practitioner
DX: R11.2 Nausea with vomiting, unspecified (principal); R10.9 Unspecified abdominal pain; R68.81 Early satiety; Z83.79 Family history of other diseases of the digestive system; K59.04 Chronic idiopathic constipation
CPT/HCPCS: 99213

== ENCOUNTER → 2023-11-27 10:12 | Outpatient (BNVA) | payer MEDICARE, MEDICAID, SELFPAY | PROVIDERS: PCP Pediatrics; Visit Provider Nurse Practitioner | DX: K59.04 Chronic idiopathic constipation (principal); R11.2 Nausea with vomiting, unspecified; R10.13 Epigastric pain; R68.81 Early satiety; Z83.79 Family history of other diseases of the digestive system | CPT/HCPCS: 99212 ==

== ENCOUNTER 2023-12-27 09:27 | Outpatient (REF) | payer MEDICARE, MEDICAID, SELFPAY ==
[2023-12-27 11:24] LABS: Blood Urea Nitrogen 6 mg/dL (9-16); Estimated Glomerular Filt Rate > 60
== END 2023-12-27 09:28 | disposition home or self-care (01) ==
LOC: HO.LAB 09:27
PROVIDERS: PCP Pediatrics; Visit Provider Nurse Practitioner
DX: K59.04 Chronic idiopathic constipation (principal); R10.9 Unspecified abdominal pain; R11.2 Nausea with vomiting, unspecified; R68.81 Early satiety; Z83.79 Family history of other diseases of the digestive system
CPT/HCPCS: 36415; 82565; 84520; 99212

== ENCOUNTER 2023-12-27 09:27 | Outpatient (AMB) | payer MEDICARE, MEDICAID, SELFPAY ==
--- NOTE | 2023-12-27 09:28 | MHC.OFFVIS ---
Vital Signs 12/27/23 09:35 Height 5 ft 2 in Weight 182 lb 15.739 oz BMI 33.5 BP 138/86 Blood Pressure Location Lt brachial Position Sitting Pulse 68 Pulse Source Pulse Oximeter Pulse Oximetry (%) 98 Oxygen Delivery Method Room Air Intake Visit Reasons: 4 weeks eval Linzess and N/V Intake Note: Mai presents to the office today for a scheduled 1 mos FUV. CC; Pt reports that their sx have remained constant / unchanged. Pt does report having two primary developments however. She reports that she is not vomiting as much as she had been previously, however; she states she has not had a bowel movement in about 1 week. Pt reports that they are no longer taking the linzess as they felt that it did not work for them. Pt stopped the medication approximately 2-3 weeks ago. Allergies Sulfa (Sulfonamide Antibiotics) [SULFA (SULFONAMIDE ANTIBIOTICS)] Allergy (Unknown, Verified 01/13/24 10:27) RASH HPI HPI 4 weeks eval Linzess and N/V: Details: Assessment & Plan (1) Nausea and vomiting: Code(s): R11.2 - Nausea with vomiting, unspecified Category: Medical (2) Abdominal pain: Code(s): R10.9 - Unspecified abdominal pain Category: Medical (3) Early satiety: Code(s): R68.81 - Early satiety Category: Medical (4) Family history of Crohn's disease: Code(s): Z83.79 - Family history of other diseases of the digestive system Category: Medical (5) Chronic idiopathic constipation: Code(s): K59.04 - Chronic idiopathic constipation Category: Medical Plan She found that the Reglan at 5 mg helped a little bit. She has had absolutely no adverse effects so will increase it to 10 mg 4 times a day. In the meantime she suffering fairly severe constipation skipping days and having only small rabbit pellet-like stools. This seems to be causing her a great deal of upper pain and bloating that sometimes will move or become less bloated if she massages her upper belly. She has failed senna, bisacodyl, Dulcolax, MiraLax, Colace and fiber saw start her on low-dose Linzess to address the constipation. Again she is also on Ozempic for diabetes and this is a contributing factor to her symptoms. We reviewed the gastric emptying study in it appears to be normal but I am going to continue the Reglan for the constipation and the nausea and vomiting. She has a CT scan coming up in December and a colonoscopy booked in March. Return office visit in [address] ABDOMEN AND PELVIS Scheduled for 01/13/2024 Medications: New metoclopramide HCl (Reglan) 10 mg PO QIDACHS 120 tabs 6RF R11.2 - Nausea with vomiting, unspecified linaclotide (Linzess) 72 mcg PO QAM 30 caps 3RF K59.04 - Chronic idiopathic constipation Discontinued metoclopramide HCl (Reglan) Discontinued Reason: Doctor's Order 5 mg PO QIDACHS 120 tabs 3RF R11.2 - Nausea with vomiting, unspecified, R68.81 - Early satiety COLONOSCOPY Scheduled for March BIOPSY TODAY'S VISIT NO BM with Linzess 72mcg, because she has used Mag citrate in past w/o result, will move to 290 Linzess. She has, at least, stopped throwing up. For this she credits the Reglan which we will continue. She is on the Reglan 10 mg 4 times a day now increased from 5 mg since she has tolerated it without any adverse effects. ROV after CT scan 01/12 [facility] Medical History Diabetes Fibromyalgia Elevated cholesterol HTN (hypertension) Nipple pain External hemorrhoids Breast pain, right Bipolar 2 disorder Surgical History History of incision and drainage (10/05/22) History of lymph node excision History of carpal tunnel release of both wrists History of appendectomy History of cholecystectomy History of tonsillectomy Family History Maternal Uncle Kidney cancer Maternal Grandfather Bladder cancer Social History Household Members: Family Housing: House Do you presently have visiting nurse or other home services: No Alcohol intake: never Patient Tobacco Use Status: Current everyday Tobacco user Tobacco use type: Cigarette Cigarette Packs Per Day: 1 Cigarettes Per Day: 10 Years Smoked: sine age 12 e-Cigarette/Vaping Use: Never Used Second Hand Smoke Exposure: Yes Substance Use Type: Marijuana service: No Sexual orientation: Don't Know Review of Systems Const Denies fatigue, Denies fever(s), Denies night sweats, Denies poor appetite and Denies weight loss ENT Reports Normal hearing present, Denies dental pain, Denies dysphagia, Denies hearing loss, Denies mouth pain, Denies odynophagia, Denies throat swelling, Denies tongue swelling and Reports other (Dentition adequate) Card Reports no additional complaints Resp Reports no additional complaints GI Details: Denies abdominal pain, Denies melena, Denies bloating, Denies hematochezia, Reports constipation, Denies GI cramping, Denies dysphagia, Denies excessive flatus, Denies early satiety, Reports heartburn, Denies diarrhea, Denies nausea, Denies odynophagia, Denies vomiting and Denies hematemesis Skin/Breast Denies pruritus, Denies lesions, Denies rash and Denies jaundice Neuro Reports Normal hearing present and Denies Abnormal speech present Endo Denies fatigue Aller/Immun Denies throat swelling and Denies tongue swelling Physical Exam Vital Signs: Last Vital Signs Pulse 68 12/27/23 09:35 BP 138/86 12/27/23 09:35 Pulse Ox 98 12/27/23 09:35 Oxygen Delivery Method Room Air 12/27/23 09:35 BMI result Body Mass Index 33.5 Const General: cooperative, no acute distress, well developed and well groomed Nutritional Appearance: well nourished and obese Orientation/consciousness: oriented to person, oriented to place and oriented to time Limitations: No language barrier HEENT Head: Yes normocephalic and Yes atraumatic Eyes General: appearance normal, both eyes and all related structures Pupils: Equal, round and reactive pupils present Neck Neck: Yes normal visual inspection and Yes no lymphadenopathy Thyroid: Thyroid normal Resp Effort & Inspection: normal respiratory effort and able to speak in complete sentences Auscultation: clear to auscultation bilaterally Cardio Rate: regular rate Rhythm: regular rhythm Heart sounds: Normal, physiologic split S2 sound present Peripheral pulses: radial pulses present and posterior tibial pulses present GI Inspection: No distended, No Abdominal panniculus present and Yes obesity Palpation (GI): Soft to palpation, nontender, no guarding, not rigid and No hepatosplenomegaly present Percussion: Yes normal to percussion Auscultation: normal bowel sounds Rectal Exam - Female: deferred Skin General skin exam: no rashes or lesions noted, turgor normal, skin not dry, no jaundice, No spider nevi and no striae Rashes: no rashes Nails: normal Neuro General: oriented to person, oriented to place and oriented to time Cranial nerves: Yes Equal, round and reactive pupils present and Yes Normal hearing present Speech: No Abnormal speech present Extrem General: Yes normal to inspection, No clubbing, No cyanosis and No edema Psych Appearance: grossly normal and well kempt Mental Status: mental status grossly normal Speech and movement: Normal speech and movement present Affect: normal affect Attitude: cooperative Thought process: Normal thought process present and not confabulating Thought content: Normal thought content present Insight: Limited insight present (Psych) Judgement: Limited judgement present (Psych) Assessment & Plan Assessment & Plan (1) Chronic idiopathic constipation: Code(s): K59.04 - Chronic idiopathic constipation Category: Medical (2) Abdominal pain: Code(s): R10.9 - Unspecified abdominal pain Category: Medical Plan NO BM with Linzess 72mcg, because she has used Mag citrate in past w/o result, will move to 290 Linzess. She has, at least, stopped throwing up. For this she credits the Reglan which we will continue. She is on the Reglan 10 mg 4 times a day now increased from 5 mg since she has tolerated it without any adverse effects. ROV after CT scan 01/12 COLONOSCOPY Scheduled for March Medications: New linaclotide (Linzess) Please dispense 290cmg dose NOT 145mcg 290 mcg PO QAM 30 caps 6RF 30 days K59.04 - Chronic idiopathic constipation Coding Level of Care Code Est Pt Level 3 (39514) Diagnoses Chronic idiopathic constipation K59.04 Abdominal pain R10.9
[2023-12-27 09:35] VITALS: BP 138/86; PULSE 68; O2SAT 98; BMI 33.5
== END 2023-12-27 09:56 | disposition home or self-care (01) ==
PROVIDERS: PCP Pediatrics; Visit Provider Nurse Practitioner
DX: K59.04 Chronic idiopathic constipation (principal); R10.9 Unspecified abdominal pain
CPT/HCPCS: 99213

== ENCOUNTER 2024-01-13 | Outpatient (REF) | payer MEDICARE, MEDICAID, SELFPAY | END 2024-01-13 00:01 | disposition home or self-care (01) | LOC: CF | PROVIDERS: Visit Provider Surgery | DX: N64.4 Mastodynia (principal) | CPT/HCPCS: 99212 ==

== ENCOUNTER 2024-01-13 10:12 | Outpatient (AMB) | payer MEDICARE, MEDICAID, SELFPAY ==
--- NOTE | 2024-01-13 10:21 | MHC.OFFVIS ---
Vital Signs 01/13/24 10:22 Height 5 ft 2 in Weight 181 lb BMI 33.1 Intake Visit Reasons: Recurrent Rt nipple abscess Intake Note: This patient presents for an assessment for Recurrent right nipple abscess. Patient c/o; reports redness, reports recurrent abscess, reports pain and pressure. 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 Accompanied by: Self / Same As Patient Allergies Sulfa (Sulfonamide Antibiotics) [SULFA (SULFONAMIDE ANTIBIOTICS)] Allergy (Unknown, Verified 01/13/24 10:27) RASH Medication List - Last Reconciled 01/13/24 by Jose Orosco MD cetirizine 10 mg PO DAILY cholecalciferol (vitamin D3) (Vitamin D3) 50 mcg PO DAILY clonidine HCl 0.1 mg PO TID cyclobenzaprine 10 mg PO BEDTIME dicyclomine 20 mg PO QID 30 days empagliflozin (Jardiance) 25 mg PO QAM glipizide 10 mg PO BID hydrocortisone 1% topical ibuprofen 600 mg PO Q6H PRN linaclotide (Linzess) 290 mcg PO QAM 30 days lisinopril 20 mg PO DAILY metoclopramide HCl (Reglan) 10 mg PO QIDACHS semaglutide (Ozempic) mg subcut sod sulf-pot chloride-mag sulf 1.479-0.188- 0.225 gram (Sutab) PO PER PKG DIR for colonoscopy prep tizanidine 4 mg PO BEDTIME triamcinolone acetonide 0.1% 1 appl topical BID-TID valacyclovir 500 mg PO DAILY HPI HPI Recurrent Rt nipple abscess: Details: She is here because of her previous history of recurrent nipple abscess. I had done excision of the area underneath the nipple-areolar on the right last September, because of this. Her path report had shown abscess cavity, fat necrosis, chronic inflammation as well as focal inclusion. She had been doing well since that time. However for the past few weeks, she says that she feels that the area has been swollen again and she feels some fullness. She says she sees a little bit of drainage from the nipple when she squeezes the area. This is similar to what she had experienced in the past. [facility] Medical History Diabetes Fibromyalgia Elevated cholesterol HTN (hypertension) Nipple pain External hemorrhoids Breast pain, right Bipolar 2 disorder Surgical History History of incision and drainage (10/05/22) History of lymph node excision History of carpal tunnel release of both wrists History of appendectomy History of cholecystectomy History of tonsillectomy Family History Maternal Uncle Kidney cancer Maternal Grandfather Bladder cancer Social History Household Members: Family Housing: House Do you presently have visiting nurse or other home services: No Alcohol intake: never Patient Tobacco Use Status: Current everyday Tobacco user Tobacco use type: Cigarette Cigarette Packs Per Day: 1 Cigarettes Per Day: 10 Years Smoked: sine age 12 e-Cigarette/Vaping Use: Never Used Second Hand Smoke Exposure: Yes Substance Use Type: Marijuana service: No Sexual orientation: Don't Know Review of Systems Const Denies chills and Denies fever(s) Card Denies chest pain, Denies dyspnea and Denies dyspnea on exertion Resp Denies cough, Denies dyspnea and Denies dyspnea on exertion GI Denies hematochezia and Denies change in bowel habits Denies hematuria Musc Denies back pain and Denies limited range of motion Neuro Denies focal weakness and Denies convulsions Psych Denies depression and Denies mood swings Physical Exam Vital Signs: BMI result Body Mass Index 33.1 Const General: comfortable and no acute distress Chest Other: Mild redness of the nipple on the right side and a little bit of edema, no fluctuance, no obvious induration Resp Effort & Inspection: normal respiratory effort Cardio Rate: regular rate GI Palpation (GI): Soft to palpation and not firm Assessment & Plan Assessment & Plan (1) Breast pain, right: Code(s): N64.4 - Mastodynia Category: Medical Plan: She has had this history of recurrent abscesses on the right nipple-areolar complex in the past. I had excised the area last year and the path report had shown abscess cavity, chronic inflammation, focal occlusion inclusion, as well as fat necrosis. She again notices some swelling and redness of the area. Current exam does not reveal any abscess or obvious induration I will send her prescription for doxycycline. I have instructed her warm soaks to the area She can follow up on a p.r.n. basis I although also advised her on the benefits of smoking cessation Coding Level of Care Code Est Pt Level 3 (28631) Diagnoses Breast pain, right N64.4
[2024-01-13 10:22] VITALS: BMI 33.1
== END 2024-01-13 10:34 | disposition home or self-care (01) ==
PROVIDERS: PCP Pediatrics; Visit Provider Surgery
DX: N64.4 Mastodynia (principal)
CPT/HCPCS: 99213

== ENCOUNTER 2024-02-20 11:36 | Outpatient (REF) | payer MEDICARE, MEDICAID, SELFPAY ==
[2024-02-20 14:21] LABS: MANUAL DIFF FLAG NO
[2024-02-20 14:22] LABS: Appearance Urine Clear; Color Urine Yellow; Glucose Urine UA >=1000 mg/dL (Negative); Leukocyte Esterase Urine Negative (Negative); Nitrite Urine Negative (Negative); PH 5.5 (5.0-9.0); Specific Gravity - Urine 1.025 (1.005-1.025); UMIC TRIGGER UACC YES; Urine Blood Negative (Negative); Urine Ketones Negative (Negative); Urine Protein Trace mg/dL (Neg-Trace)
[2024-02-20 14:35] LABS: Basophils Absolute Auto 0.1 X10*3/uL (0.0-0.2); Basophils Percent Auto 0.5 % (0-2); Eosinophils Absolute Auto 0.1 X10*3/uL (0.0-0.4); Hematocrit 45.6 % (37.0-47.0); Hemoglobin 15.9 g/dl (12.0-16.0); Imm Gran Abs Auto 0.09 X10*3/uL (0.00-0.03); Imm Gran Pct Auto 0.9 % (0.0-0.4); Lymphocytes Absolute Auto 2.7 X10*3/uL (1.2-4.9); Mean Corpuscular HGB Conc 34.9 g/dl (31.0-35.0); Mean Corpuscular Hemoglobin 31.8 pg (27.0-33.0); Mean Corpuscular Volume 91.2 fL (80.0-98.0); Mean Platelet Volume 10.1 fL (9.4-12.3); Monocytes Absolute Auto 0.6 X10*3/uL (0.1-1.2); Monocytes Percent Auto 6.2 % (2-11); Neutrophils Absolute Auto 6.1 x10*3/uL (2.0-8.3); Neutrophils Percent Auto 63.4 % (45-73); Platelet Count 281 X10*3/uL (160-400); Red Cell Distribution Width 12.4 % (11.0-16.0); White Blood Count 9.6 X10*3/uL (4.8-10.8)
[2024-02-20 14:42] LABS: Bacteria Urine 1+ (None Seen); Hyaline Casts Urine 0-2 /LPF (0-2); RBC Urine 0-2 /HPF (0-2); WBC Urine 0-5 /HPF (0-5)
[2024-02-20 14:44] LABS: Alanine Aminotransferase 21 U/L (0-31); Albumin Level 4.6 g/dL (3.5-5.0); Alkaline Phosphatase 82 U/L (39-117); Aspartate Amino Transferase 16 U/L (5-31); Bilirubin Direct 0.1 mg/dL (0.0-0.5); Bilirubin Total 0.4 mg/dL (0.0-1.0); Cholesterol 284 mg/dL (<200); HDL Cholesterol 39 mg/dL (>40); LDL Cholesterol Calculated 168 mg/dL (<100); Lipase 15 U/L (8-78); Total Protein 7.7 g/dL (6.5-8.0); Triglycerides 387 mg/dL (<150)
[2024-02-20 14:51] LABS: Creatinine Urine 82.08 mg/dL; Microalbum/Creatinine Ratio Ur 60.9 ug/mg cr (<30)
[2024-02-20 15:06] LABS: TSH reflex Free T4 2.74 uIU/mL (0.32-4.0)
== END 2024-02-20 11:37 | disposition home or self-care (01) ==
LOC: HO.CHCLDS 11:36
PROVIDERS: Visit Provider Pediatrics
DX: R10.12 Left upper quadrant pain (principal)
CPT/HCPCS: 36415; 80061; 80076; 81001; 82043; 82570; 83690; 84443; 85025

== ENCOUNTER 2024-03-12 08:20 | Emergency (ER) | payer MEDICARE, MEDICAID, SELFPAY ==
--- NOTE | ~2024-03-12 | CT_ITS ---
EXAMINATION: CT ABDOMEN AND PELVIS WITHOUT CONTRAST CLINICAL INFORMATION: Left upper quadrant, epigastric abdominal pain, vomiting COMPARISON: CT from 10/26/2018 TECHNIQUE: Multidetector volumetric imaging was performed from the superior aspect of the liver through the pubic symphysis. Sagittal and coronal reformatted images were obtained on the technologist's workstation. This CT examination was performed using dose optimization techniques as appropriate, variously including the following: *Automated exposure control *Adjustment of mA and/or kV according to patient size (this includes techniques or standardized protocols for targeted exams where dose is matched to indication/reason for exam; i.e. extremities or head) *Use of iterative reconstruction technique DLP: 615 mGy-cm FINDINGS: LUNG BASES: The visualized lung bases are unremarkable. LIVER, GALLBLADDER, AND BILIARY TREE: The liver is normal in size, shape, and attenuation. No focal hepatic lesion or biliary ductal dilatation is present. Status post cholecystectomy PANCREAS: Unremarkable. SPLEEN: Unremarkable. ADRENAL GLANDS: Unremarkable. KIDNEYS AND URETERS: The kidneys are normal in size, shape, and attenuation. No hydronephrosis, hydroureter, or calculi seen. No perinephric stranding. BLADDER: Unremarkable. GASTROINTESTINAL TRACT: Small hiatal hernia. The small and large bowel are unremarkable. The appendix is nonvisualized. ABDOMINAL WALL: No significant hernia is appreciated. LYMPH NODES: Normal. VASCULAR: Unremarkable. PELVIC VISCERA: The uterus and right adnexa are unremarkable. There is a simple fluid density cyst in the left ovary measuring 4.4 x 3.4 cm. OSSEOUS STRUCTURES: Unremarkable. CT/CT abdomen pelvis wo IV con IMPRESSION: 1. No acute process. 2. Left ovarian cyst measuring 4.4 cm. Findings are overwhelmingly likely to represent a benign functional cyst. No followup imaging recommended. 3. Small hiatal hernia. Electronically signed by: Jose G Prescott MD 03/12/2024 04:09 PM EDT
--- NOTE | ~2024-03-12 | XR_ITS ---
EXAMINATION: XR RIBS, LEFT CLINICAL INFORMATION: Cough COMPARISON: None available. TECHNIQUE: Single view chest and 4 views of the left ribs were obtained. FINDINGS: Lungs are clear. No consolidation, pneumothorax, or pleural effusion. The cardiomediastinal silhouette and pulmonary vasculature are normal. Osseous structures are unremarkable. Ribs are intact. No fractures are identified. XR/XR ribs LT min 3V w CXR1V IMPRESSION: Unremarkable examination. Electronically signed by: Bernard Cooley MD 03/12/2024 12:28 PM EDT
[2024-03-12 08:32] VITALS: BP 184/108; PULSE 89; RESP 20; TEMP 36.1; O2SAT 97; BMI 32.4
[2024-03-12 08:52] LABS: MANUAL DIFF FLAG NO
[2024-03-12 08:54] LABS: Basophils Absolute Auto 0.1 X10*3/uL (0.0-0.2); Basophils Percent Auto 0.4 % (0-2); Eosinophils Absolute Auto 0.1 X10*3/uL (0.0-0.4); Eosinophils Percent Auto 0.7 % (0-4); Hemoglobin 16.7 g/dl (12.0-16.0); Imm Gran Abs Auto 0.12 X10*3/uL (0.00-0.03); Imm Gran Pct Auto 0.9 % (0.0-0.4); Lymphocytes Absolute Auto 3.7 X10*3/uL (1.2-4.9); Lymphocytes Percent Auto 27.1 % (20-40); Mean Corpuscular HGB Conc 35.5 g/dl (31.0-35.0); Mean Corpuscular Hemoglobin 32.1 pg (27.0-33.0); Mean Corpuscular Volume 90.4 fL (80.0-98.0); Mean Platelet Volume 9.9 fL (9.4-12.3); Monocytes Percent Auto 7.5 % (2-11); Neutrophils Absolute Auto 8.6 x10*3/uL (2.0-8.3); Neutrophils Percent Auto 63.4 % (45-73); Platelet Count 306 X10*3/uL (160-400); Red Cell Distribution Width 12.4 % (11.0-16.0); White Blood Count 13.6 X10*3/uL (4.8-10.8)
[2024-03-12 08:56] LABS: Appearance Urine Clear; Color Urine Yellow; Glucose Urine UA >=1000 mg/dL (Negative); Leukocyte Esterase Urine Negative (Negative); Nitrite Urine Negative (Negative); Specific Gravity - Urine >= 1.030 (1.005-1.025); UMIC TRIGGER UACC YES; Urine Blood Negative (Negative); Urine Ketones 15 mg/dL (Negative); Urine Protein 100 (2+) mg/dL (Neg-Trace)
[2024-03-12 09:06] LABS: Bacteria Urine 1+ (None Seen); Hyaline Casts Urine 0-2 /LPF (0-2); RBC Urine 0-2 /HPF (0-2); WBC Urine 0-5 /HPF (0-5)
[2024-03-12 09:10] LABS: Alanine Aminotransferase 26 U/L (0-31); Albumin Level 4.8 g/dL (3.5-5.0); Alkaline Phosphatase 79 U/L (39-117); Anion Gap 14 (12-20); Aspartate Amino Transferase 21 U/L (5-31); Bilirubin Direct 0.2 mg/dL (0.0-0.5); Bilirubin Total 0.6 mg/dL (0.0-1.0); Blood Urea Nitrogen 8 mg/dL (9-16); Carbon Dioxide 23 mmol/L (22-29); Chloride 103 mmol/L (96-108); Creatinine Clr Calc Pharmacy 90.4; Estimated Glomerular Filt Rate > 60; Glucose Random 312 mg/dL (60-115); Lipase 14 U/L (8-78); Potassium 3.6 mmol/L (3.3-5.1); Sodium 136 mmol/L (135-145)
[2024-03-12 09:43] LABS: Influenza A PCR NEGATIVE (Negative); Influenza B PCR NEGATIVE (Negative); Resp Syncy Virus RNA Qual PCR NEGATIVE (Negative); SARS COV2 PCR INHOUSE NEGATIVE (Negative)
--- NOTE | 2024-03-12 13:12 | ED_ITS ---
HPI - General Adult General Chief complaint: Abdominal Pain Stated complaint: Vomiting, pain L side Time Seen by Provider: 03/12/24 13:11 Source: patient Mode of arrival: ambulatory Limitations: no limitations History of Present Illness ED Provider: OLENA GARCIA PA-C HPI narrative: 38-year-old female with past medical history significant for bipolar 2 disorder, T2DM, HTN, fibromyalgia, and constipation presents to the ED today for evaluation of abdominal pain, nausea, and vomiting x1 month. Reports abdominal pain originates in epigastric region and radiates to left upper quadrant. She has followed up with her PCP regarding this and has an outpatient CT abdomen/ pelvis scheduled for next month however states that she cannot wait. She does admit to daily marijuana use. Reports 2 episodes of vomiting today. Reports chronic constipation. Last BM earlier today with straining. Denies trauma/ injury. Denies fever, chills, flank pain, dysuria, hematuria, diarrhea, hematochezia, melena, hematemesis, vaginal discharge. Denies chance of . Related Data Home Medications ?Medication ?Instructions ?Recorded ?Confirmed cetirizine 10 mg tablet 10 mg PO DAILY 05/02/22 01/13/24 clonidine HCl 0.1 mg tablet 0.1 mg PO TID 05/02/22 01/13/24 empagliflozin 25 mg tablet 25 mg PO QAM 10/05/22 01/13/24 (Jardiance) lisinopril 20 mg tablet 20 mg PO DAILY 10/05/22 01/13/24 valacyclovir 500 mg tablet 500 mg PO DAILY 10/05/22 01/13/24 cholecalciferol (vitamin D3) 50 50 mcg PO DAILY 10/01/23 01/13/24 mcg (2,000 unit) capsule (Vitamin D3) glipizide 10 mg tablet 10 mg PO BID 10/01/23 01/13/24 tizanidine 4 mg tablet 4 mg PO BEDTIME 10/01/23 01/13/24 semaglutide 0.25 mg or 0.5 mg (2 mg subcut 11/12/23 01/13/24 mg/3 mL) subcutaneous pen injector (Ozempic) cyclobenzaprine 10 mg tablet 10 mg PO BEDTIME 12/27/23 01/13/24 hydrocortisone 1 % topical cream topical 06/28/24 07/15/24 with perineal applicator triamcinolone acetonide 0.1 % 1 appl topical BID-TID 12/27/23 01/13/24 topical cream Previous Rx's ?Medication ?Instructions ?Recorded ibuprofen 600 mg tablet 600 mg PO Q6H PRN pain #30 tabs 10/05/22 dicyclomine 20 mg tablet 20 mg PO QID 30 days #120 tabs 10/01/23 sodium sul 1.479 gram-potas ch See Rx Instructions PO PER PKG DIR 11/12/23 0.188 gram-magnes sul 0.225 gram #24 tabs tablet (Sutab) metoclopramide HCl 10 mg tablet 10 mg PO QIDACHS #120 tabs 11/27/23 (Reglan) linaclotide 290 mcg capsule 290 mcg PO QAM 30 days #30 caps 12/27/23 (Linzess) doxycycline hyclate 100 mg tablet 100 mg PO DAILY #10 tabs 01/13/24 ondansetron 4 mg disintegrating 4 mg PO DAILY PRN nausea and 03/12/24 tablet vomiting 5 days #10 tabs Allergies Allergy/AdvReac Type Severity Reaction Status Date / Time Sulfa (Sulfonamide Allergy Unknown RASH Verified 03/12/24 08:34 Antibiotics) [SULFA (SULFONAMIDE ANTIBIOTICS)] Review of Systems 2 Review of Systems: Constitutional: No fever, chills, fatigue, night sweats, weight changes ENT/Mouth: No ear pain, hearing loss, nasal congestion, sinus pain, rhinorrhea, sore throat Eyes: No eye pain, swelling, redness, vision changes, discharge Cardio: No chest pain, palpitations, [place], orthopnea, peripheral edema Pulm: No SOB, cough, sputum, wheezing, dyspnea, hemoptysis GI: No hematemesis, diarrhea, hematochezia, melena, +abdominal pain, +constipation, +nausea, +vomiting : No irregular bleeding, dysuria, frequency, urgency, hesitancy, hematuria, flank pain, urinary flow changes, urinary incontinence or retention MSK: No back pain, neck pain, joint pain, myalgias Skin: No lesions, rashes Neuro: No weakness, numbness, paresthesias, LOC, dizziness, headache Psych: No anxiety/panic, depression, SI/HI, AH/VH All other systems reviewed and are negative. [facility] Past Medical History Attestation statement: The following information was validated with the patient. Source: old records reviewed and nursing notes reviewed Medical History Diabetes Fibromyalgia Elevated cholesterol HTN (hypertension) Nipple pain External hemorrhoids Breast pain, right Bipolar 2 disorder Surgical History History of incision and drainage (10/05/22) History of lymph node excision History of carpal tunnel release of both wrists History of appendectomy History of cholecystectomy History of tonsillectomy Family History Family History Maternal Uncle Kidney cancer Maternal Grandfather Bladder cancer Social History Social History Household Members: Family Housing: House Do you presently have visiting nurse or other home services: No Alcohol intake: never Patient Tobacco Use Status: Current everyday Tobacco user Tobacco use type: Cigarette Cigarette Packs Per Day: 1 Cigarettes Per Day: 10 Years Smoked: sine age 12 e-Cigarette/Vaping Use: Never Used Second Hand Smoke Exposure: Yes Substance Use Type: Marijuana Advance Directives: No Advance Directives Information Provided: Yes Do you have a plan to hurt others: No Plan service: No Sexual orientation: Don't Know Physical Exam ED Vital Signs: Vital Signs - 24 hr 03/12/24 14:24 03/12/24 16:34 Temperature 98.2 F Pulse Rate 64 93 Respiratory Rate 16 18 Blood Pressure 189/76 H 170/92 H Pulse Oximetry 96 96 Oxygen Delivery Method Room Air Room Air BMI result Body Mass Index 32.4 Hypertensive, vitals other neri wnl General: Well appearing, in no acute distress. Skin: Warm, dry, intact. No rashes or lesions. Head: Normocephalic, atraumatic. EENT: Hearing is intact b/l. Conjunctiva clear. Sclera is anicteric. PERRLA. EOM intact. Moist mucous membranes.? Cardiac: Chest wall symmetric. RRR. No MRG. No JVD. Lungs: Normal respiratory effort without accessory muscle use. CTA bilaterally. No rales, rhonchi, or wheezes.? Abdomen: Obese abdomen, soft, nondistended, tender to palpation of epigastric and left upper quadrant without rebound or guarding. Normoactive bowel sounds x4. Back: No midline spinous or paraspinal tenderness. No step off deformity. No CVAT b/l. Ext: Upper and lower extremities atraumatic, without tenderness, deformity, swelling or erythema. Full ROM throughout. Neuro: AOx3. Normal speech. CN 2-12 grossly intact. Strength 5/5 intact throughout. Sensation intact to light touch. NV intact distally. Ambulating with steady gait. Psych: Appropriate mood and affect. Responds appropriately to questions. Course Course Course Narrative: 131 -- CBC with leukocytosis to 13.6 without left shift. Likely secondary to multiple episodes of vomiting. No anemia. H&H stable. Chemistry without acute electrolyte abnormality requiring intervention. No BRANNON. Random glucose 312. Normal liver function. Lipase WNL. Triglycerides chronically elevated, today 335. No concern for triglycerides induced pancreatitis. Serology negative for COVID, flu, RSV. X-ray left ribs unremarkable. No focal consolidation or infiltrate. UA without nitrites, leukocyte esterase. There is 6-10 squamous epithelial cells with 1+ urine bacteria. I have concern for contamination. Will await urine culture to treat true UTI. > 1L IVF and dose of droperidol ordered > CT abdomen/ pelvis pending 1453 -- Patient initially reporting improvement in nausea with droperidol. Now complains of nausea. No further episodes of vomiting. Will place order for Reglan and benadryl with re-evaluation. CT still pending. 1620 -- CT showing small hiatal hernia. No significant stool burden. patient reports improvement in symptoms w/ medications. no longer nauseous. no episodes of vomiting. tolerating po intake in ED. pain controlled. at this time I feel patient is stable for discharge home at this time. Patient has remained stable throughout ED visit today. Discussed worrisome signs and symptoms and when to return to the ED. All questions answered at this time. Patient is agreeable with disposition and stable for discharge. Medications Administered Discontinued Medications Generic Name Dose Route Start Last Admin Trade Name Freq PRN Reason Stop Dose Admin Diphenhydramine HCl 50 mg 03/12/24 14:53 03/12/24 15:14 Diphenhydramine Hcl 50 Mg/Ml Vial IVPUSH 03/12/24 14:54 50 mg ONCE ONE Administration Droperidol 1.25 mg 03/12/24 13:17 03/12/24 13:35 Droperidol 5 Mg/2 Ml Vial IVPUSH 03/12/24 13:18 1.25 mg ONCE ONE Administration Sodium Chloride 1,000 mls @ 999 mls/hr 03/12/24 13:30 03/12/24 15:19 Ns IV 03/12/24 14:30 Infused .Q1H1M LAW Infusion Metoclopramide HCl 10 mg 03/12/24 14:53 03/12/24 15:14 Metoclopramide Hcl 10 Mg/2 Ml Vial IVPUSH 03/12/24 14:54 10 mg ONCE ONE Administration Medical Decision Making Medical Decision Making [facility] Narrative: 38-year-old female with past medical history significant for bipolar 2 disorder, T2DM, HTN, fibromyalgia, and constipation presents to the ED today for evaluation of abdominal pain, nausea, and vomiting x1 month. Patient initially hypertensive to 184/108. Now 189/76. Vitals otherwise wnl. She is nontoxic appearing and in NAD. On exam, patient w/ obese abdomen, soft, nondistended, tender to palpation of epigastric and left upper quadrant without rebound or guarding. Normoactive bowel sounds x4. No CVAT b/l. No abdominal wall ecchymosis. Differential diagnosis includes biliary colic, renal colic, nephrolithiasis, gastroenteritis, cannabinoid hyperemesis. Abdominal exam without peritoneal signs. No evidence of acute abdomen at this time. Well appearing. Moderate suspicion for acute hepatobiliary disease (s/p cholecystectomy). Less likely to represent acute pancreatitis, PUD (including perforation), acute infectious processes (pneumonia, hepatitis, pyelonephritis), atypical appendicitis (s/p appendectomy), vascular catastrophe, bowel obstruction or viscus perforation. Presentation not consistent with other acute, emergent causes of abdominal pain at this time. Plan: labs, UA, pain control, CT a/p, serial reassessment Differential Diagnosis Differential Diagnoses: The differential diagnosis associated with the presentation includes As above Admission/Observation Not indicated Lab Data [facility] Lab Attestation statement: I reviewed the patient's lab results. As above 03/12/24 08:46 03/12/24 08:47 Labs: Lab Results 03/12/24 03/12/24 Range/Units 08:46 08:47 WBC 13.6 H (4.8-10.8) X10*3/uL RBC 5.20 (4.20-5.50) X10*6/uL Hgb 16.7 H (12.0-16.0) g/dl Hct 47.0 (37.0-47.0) % MCV 90.4 (80.0-98.0) fL MCH 32.1 (27.0-33.0) pg MCHC 35.5 H (31.0-35.0) g/dl RDW 12.4 (11.0-16.0) % Plt Count 306 (160-400) X10*3/uL MPV 9.9 (9.4-12.3) fL Immature Gran % (Auto) 0.9 H (0.0-0.4) % Neut % (Auto) 63.4 (45-73) % Lymph % (Auto) 27.1 (20-40) % Davison % (Auto) 7.5 (2-11) % Eos % (Auto) 0.7 (0-4) % Baso % (Auto) 0.4 (0-2) % Lymph # (Auto) 3.7 (1.2-4.9) X10*3/uL Davison # (Auto) 1.0 (0.1-1.2) X10*3/uL Eos # (Auto) 0.1 (0.0-0.4) X10*3/uL Baso # (Auto) 0.1 (0.0-0.2) X10*3/uL Abs Immat Gran (auto) 0.12 H (0.00-0.03) X10*3/uL Absolute Neuts (auto) 8.6 H (2.0-8.3) x10*3/uL Absolute Nucleated RBC 0.000 (0.0-0.012) X10*3/uL Nucleated RBC % (auto) 0.0 (0.0-0.2) /100WBC Sodium 136 (135-145) mmol/L Potassium 3.6 (3.3-5.1) mmol/L Chloride 103 (96-108) mmol/L Carbon Dioxide 23 (22-29) mmol/L Anion Gap 14 (12-20) BUN 8 L (9-16) mg/dL Creatinine 0.82 (0.5-1.4) mg/dL Estim Creat Clear Calc 90.4 Estimated GFR > 60 Random Glucose 312 H (60-115) mg/dL Calcium 10.0 (8.4-10.2) mg/dL Total Bilirubin 0.6 (0.0-1.0) mg/dL Direct Bilirubin 0.2 (0.0-0.5) mg/dL AST 21 (5-31) U/L ALT 26 (0-31) U/L Alkaline Phosphatase 79 (39-117) U/L Total Protein 8.0 (6.5-8.0) g/dL Albumin 4.8 (3.5-5.0) g/dL Triglycerides 335 H (<150) mg/dL Lipase 14 (8-78) U/L Urine Color Yellow Urine Appearance Clear Urine pH 6.0 (5.0-9.0) Ur Specific [place] >= 1.030 H (1.005-1.025) Urine Protein 100 (2+) H (Neg-Trace) mg/dL Urine Glucose (UA) >=1000 H (Negative) mg/dL Urine Ketones 15 (Negative) mg/dL Urine Blood Negative (Negative) Urine Nitrite Negative (Negative) Ur Leukocyte Esterase Negative (Negative) Urine RBC 0-2 (0-2) /HPF Urine WBC 0-5 (0-5) /HPF Ur Squamous Epith Cells 6-10 (0-2) /HPF Urine Bacteria 1+ (None Seen) Hyaline Casts 0-2 (0-2) /LPF Urine Yeast Present Urine Test NEGATIVE (NEGATIVE) Influenza Type A (PCR) NEGATIVE (Negative) Influenza Type B (PCR) NEGATIVE (Negative) RSV RNA Qual (PCR) NEGATIVE (Negative) SARS-CoV-2 RNA (RT-PCR) NEGATIVE (Negative) Independent Interpretation I performed an independent interpretation of an: Plain X-Ray and CT Scan Interpretation: CT a/p without significant stool burden, agree with radiologist's interpretation. X-ray left ribs without fracture, agree with radiologist's interpretation. Radiology Impression Discussion of test interpretation with radiology: I have reviewed the radiologist's reading. Radiologist Impression: EXAMINATION: XR RIBS, LEFT CLINICAL INFORMATION: Cough COMPARISON: None available. TECHNIQUE: Single view chest and 4 views of the left ribs were obtained. FINDINGS: Lungs are clear. No consolidation, pneumothorax, or pleural effusion. The cardiomediastinal silhouette and pulmonary vasculature are normal. Osseous structures are unremarkable. Ribs are intact. No fractures are identified. XR/XR ribs LT min 3V w CXR1V IMPRESSION: Unremarkable examination. Electronically signed by: Bernard Cooley MD 03/12/2024 12:28 PM EDT RP EXAMINATION: CT ABDOMEN AND PELVIS WITHOUT CONTRAST CLINICAL INFORMATION: Left upper quadrant, epigastric abdominal pain, vomiting COMPARISON: CT from 10/26/2018 TECHNIQUE: Multidetector volumetric imaging was performed from the superior aspect of the liver through the pubic symphysis. Sagittal and coronal reformatted images were obtained on the technologist's workstation. This CT examination was performed using dose optimization techniques as appropriate, variously including the following: *Automated exposure control *Adjustment of mA and/or kV according to patient size (this includes techniques or standardized protocols for targeted exams where dose is matched to indication/reason for exam; i.e. extremities or head) *Use of iterative reconstruction technique DLP: 615 mGy-cm FINDINGS: LUNG BASES: The visualized lung bases are unremarkable. LIVER, GALLBLADDER, AND BILIARY TREE: The liver is normal in size, shape, and attenuation. No focal hepatic lesion or biliary ductal dilatation is present. Status post cholecystectomy PANCREAS: Unremarkable. SPLEEN: Unremarkable. ADRENAL GLANDS: Unremarkable. KIDNEYS AND URETERS: The kidneys are normal in size, shape, and attenuation. No hydronephrosis, hydroureter, or calculi seen. No perinephric stranding. BLADDER: Unremarkable. GASTROINTESTINAL TRACT: Small hiatal hernia. The small and large bowel are unremarkable. The appendix is nonvisualized. ABDOMINAL WALL: No significant hernia is appreciated. LYMPH NODES: Normal. VASCULAR: Unremarkable. PELVIC VISCERA: The uterus and right adnexa are unremarkable. There is a simple fluid density cyst in the left ovary measuring 4.4 x 3.4 cm. OSSEOUS STRUCTURES: Unremarkable. CT/CT abdomen pelvis wo IV con IMPRESSION: 1. No acute process. 2. Left ovarian cyst measuring 4.4 cm. Findings are overwhelmingly likely to represent a benign functional cyst. No followup imaging recommended. 3. Small hiatal hernia. Electronically signed by: Jose G Prescott MD 03/12/2024 04:09 PM EDT RP External Record Review External record reviewed: Inpatient record, Office record, Outpatient record, Prior outpatient labs, Prior outpatient radiology, Primary care record and Outside ED record Prescription Management I considered prescription management with: Other (zofran) Chronic Conditions Patient?s care impacted by: Diabetes and Other (marijuana use) Social Determinants Patient?s care significantly limited by Social Determinants of Health including: Alcoholism and drug addiction in family and Other Social Determinant of Health Critical Care Time Critical Care Time Critical Care Time: No Discharge Plan Discharge Clinical Impression: Abdominal pain, Nausea and vomiting, Hiatal hernia Patient Disposition: Home, Self-Care Instructions: Hiatal Hernia (ED), Abdominal Pain (ED) Additional Instructions: Your blood work today is reassuring. Your rib x-ray is normal. As discussed, the CT scan of your abdomen shows a small hiatal hernia. Please follow-up with your GI specialist regarding this finding. Zoan has been sent to your pharmacy to help with your nausea. It would be in your best interest to stop smoking marijuana as this can worsen your symptoms. Return with new or worsening symptoms. In the case of an emergency call 911. Prescriptions: New ondansetron 4 mg tablet,disintegrating 4 mg PO DAILY PRN (Reason: nausea and vomiting) 5 Days Qty: 10 0RF No Action Sutab 1.479-0.188- 0.225 gram tablet See Rx Instructions PO PER PKG DIR Qty: 24 0RF Rx Instructions: PO PER PKG DIR for colonoscopy prep tizanidine 4 mg tablet 4 mg PO BEDTIME lisinopril 20 mg tablet 20 mg PO DAILY valacyclovir 500 mg tablet 500 mg PO DAILY Jardiance 25 mg tablet 25 mg PO QAM ibuprofen 600 mg tablet 600 mg PO Q6H PRN (Reason: pain) Qty: 30 0RF clonidine HCl 0.1 mg tablet 0.1 mg PO TID cetirizine 10 mg tablet 10 mg PO DAILY glipizide 10 mg tablet 10 mg PO BID cholecalciferol (vitamin D3) [Vitamin D3] 50 mcg (2,000 unit) capsule 50 mcg PO DAILY dicyclomine 20 mg tablet 20 mg PO QID 30 Days Qty: 120 6RF Ozempic 0.25 mg or 0.5 mg (2 mg/3 mL) pen injector subcut metoclopramide HCl [Reglan] 10 mg tablet 10 mg PO QIDACHS Qty: 120 6RF triamcinolone acetonide 0.1 % cream 1 appl topical BID-TID cyclobenzaprine 10 mg tablet 10 mg PO BEDTIME hydrocortisone 1 % cream with perineal applicator topical Linzess 290 mcg capsule 290 mcg PO QAM 30 Days Qty: 30 6RF Rx Instructions: Please dispense 290cmg dose NOT 145mcg doxycycline hyclate 100 mg tablet 100 mg PO DAILY Qty: 10 0RF Referrals: [facility] [place] [facility] [Provider Group] Interventions: ED Discharge Assessment Last Done: 03/12/24 16:34 Discharge Date/Time: 03/12/24 16:36 Print Language: Romansh
[2024-03-12] MEDS: 0.9 % Sodium Chloride 1,000 ML 999 ML IV (13:35)
[2024-03-12] MEDS: droPERidol 5 MG/2 ML VIAL 1.25 MG IVPUSH (13:35)
[2024-03-12 13:53] LABS: UPreg QC Valid YES; Urine Pregnancy NEGATIVE (NEGATIVE)
[2024-03-12 13:55] LABS: Triglycerides 335 mg/dL (<150)
[2024-03-12 14:24] VITALS: BP 189/76; PULSE 64; RESP 16; O2SAT 96
[2024-03-12] MEDS: Metoclopramide HCl 10 MG/2 ML VIAL IVPUSH (15:14)
[2024-03-12] MEDS: diphenhydrAMINE HCL 50 MG/ML VIAL IVPUSH (15:14)
[2024-03-12 16:34] VITALS: BP 170/92; PULSE 93; RESP 18; TEMP 36.8; O2SAT 96
== END 2024-03-12 16:36 | disposition home or self-care (01) ==
PROVIDERS: Physician Assistant Medical; Emergency Provider Emergency Medicine; PCP Pediatrics
DX: K44.9 Diaphragmatic hernia without obstruction or gangrene (principal); R11.2 Nausea with vomiting, unspecified; R10.13 Epigastric pain; R07.81 Pleurodynia; I10 Essential (primary) hypertension; E11.9 Type 2 diabetes mellitus without complications; F17.210 Nicotine dependence, cigarettes, uncomplicated; Z03.818 Encounter for observation for suspected exposure to other biological agents ruled out; Z79.85 Long-term (current) use of injectable non-insulin antidiabetic drugs; Z79.899 Other long term (current) drug therapy
CPT/HCPCS: 0241U; 71101; 74176; 80048; 80076; 81001; 81025; 83690; 84478; 85025; 96361; 96374; 96375; 99283; 99284; J1200; J1790; J2765

== ENCOUNTER 2024-06-16 16:49 | Emergency (ER) | payer MEDICARE, MEDICAID, SELFPAY ==
[2024-06-16] VITALS (12 sets, daily range): BP systolic 141–180; BP diastolic 91–116; PULSE 93–140; RESP 15–20; TEMP 36.6–37.3; O2SAT 95–98; BMI 31.1
--- NOTE | 2024-06-16 | ECG_ITS ---
Test Reason : TACHYCARDIA Blood Pressure : / mmHG Vent. Rate : 130 BPM Atrial Rate : 130 BPM P-R Int : 142 ms QRS Dur : 086 ms QT Int : 302 ms P-R-T Axes : 072 063 036 degrees QTc Int : 444 ms Sinus tachycardia Possible Left atrial enlargement Borderline ECG When compared with ECG of 12-JAN-2023 16:12, No significant changes seen Referred By: Damaris Mora Electronically Signed By:SABRA OAKLEY
--- NOTE | ~2024-06-16 | CT_ITS ---
EXAMINATION: CT ABDOMEN AND PELVIS WITH CONTRAST CLINICAL INFORMATION: Abdominal pain COMPARISON: CT abdomen pelvis 03/12/2024 TECHNIQUE: Multidetector volumetric images were obtained from the superior aspect of the liver through the pubic symphysis following administration 85 mL of Omnipaque 350 intravenous contrast. Sagittal and coronal reformatted images were obtained on the technologist's workstation. Oral contrast: No This CT examination was performed using dose optimization techniques as appropriate, variously including the following: *Automated exposure control *Adjustment of mA and/or kV according to patient size (this includes techniques or standardized protocols for targeted exams where dose is matched to indication/reason for exam; i.e. extremities or head) *Use of iterative reconstruction technique DLP: 578 mGy-cm FINDINGS: LUNG BASES: The visualized lung bases are unremarkable. Suspect small hiatal hernia LIVER, GALLBLADDER, AND BILIARY TREE: The liver is mildly enlarged in size measuring 18 cm in craniocaudad length. It is normal shape, and attenuation. No focal hepatic lesion or biliary ductal dilatation is present. The gallbladder is unremarkable with no evidence of radiopaque gallstones, gallbladder wall thickening, or obvious pericholecystic inflammatory changes. PANCREAS: Unremarkable. SPLEEN: Unremarkable. ADRENAL GLANDS: Unremarkable. KIDNEYS AND URETERS: The kidneys are normal in size, shape, and attenuation. No hydronephrosis, hydroureter, or calculi seen. No perinephric stranding. BLADDER: Unremarkable. GASTROINTESTINAL TRACT: There is scattered stool and gas seen in colon without distention. There is diffuse mural thickening involving the entire colon most prominent in the distal descending and sigmoid region. No pericolic fat stranding seen. The small bowel loops are normal caliber. Appendix is not visualized. Stomach is nondistended. The stomach is fluid-filled and minimally distended. ABDOMINAL WALL: No significant hernia is appreciated. LYMPH NODES: Normal. VASCULAR: Unremarkable. PELVIC VISCERA: The uterus is anteverted. There is 1.5 cm irregular shaped left corpus luteal cyst. No free fluid or free air seen. OSSEOUS STRUCTURES: There is mild to moderate posterior spondylosis and bridging osteophyte L5-S1 disc level. CT/CT abdomen pelvis w IV con IMPRESSION: 1. Diffuse mural thickening involving the entire colon most prominent in the distal descending and sigmoid region. No pericolic fat stranding seen. Findings are suggestive of colitis. 2. Mild hepatomegaly. 3. Left corpus luteal cyst. 4. Suspect small hiatal hernia Fleischner guidelines were followed. Electronically signed by: Osei Tovar MD 06/16/2024 09:54 PM EST [facility]
[2024-06-16 17:41] LABS: Appearance Urine Clear; Basophils Absolute Auto 0.1 X10*3/uL (0.0-0.2); Basophils Percent Auto 0.3 % (0-2); Color Urine Yellow; Glucose Urine UA >=1000 mg/dL (Negative); Hematocrit 47.3 % (37.0-47.0); Hemoglobin 16.8 g/dl (12.0-16.0); Imm Gran Abs Auto 0.18 X10*3/uL (0.00-0.03); Imm Gran Pct Auto 0.8 % (0.0-0.4); Leukocyte Esterase Urine Negative (Negative); Lymphocytes Percent Auto 8.6 % (20-40); MANUAL DIFF FLAG SCAN; Mean Corpuscular HGB Conc 35.5 g/dl (31.0-35.0); Mean Corpuscular Hemoglobin 31.8 pg (27.0-33.0); Mean Corpuscular Volume 89.6 fL (80.0-98.0); Mean Platelet Volume 9.6 fL (9.4-12.3); Monocytes Absolute Auto 1.6 X10*3/uL (0.1-1.2); Monocytes Percent Auto 6.8 % (2-11); Neutrophils Absolute Auto 19.5 x10*3/uL (2.0-8.3); Neutrophils Percent Auto 83.5 % (45-73); Nitrite Urine Negative (Negative); Platelet Count 363 X10*3/uL (160-400); Red Blood Count 5.28 X10*6/uL (4.20-5.50); Red Cell Distribution Width 12.4 % (11.0-16.0); SCAN SMEAR FLAG 1; Specific Gravity - Urine >= 1.030 (1.005-1.025); UMIC TRIGGER UACC YES; Urine Blood Trace (Negative); Urine Ketones 40 mg/dL (Negative); Urine Protein 300 (3+) mg/dL (Neg-Trace); White Blood Count 23.3 X10*3/uL (4.8-10.8)
[2024-06-16 17:46] LABS: UPreg QC Valid YES; Urine Pregnancy NEGATIVE (NEGATIVE)
[2024-06-16 17:59] LABS: Bacteria Urine 1+ (None Seen); WBC Urine 0-5 /HPF (0-5)
[2024-06-16 18:00] LABS: Alanine Aminotransferase 23 U/L (0-31); Albumin Level 5.2 g/dL (3.5-5.0); Alkaline Phosphatase 78 U/L (39-117); Anion Gap 14 (12-20); Aspartate Amino Transferase 20 U/L (5-31); Bilirubin Direct 0.2 mg/dL (0.0-0.5); Bilirubin Total 0.8 mg/dL (0.0-1.0); Blood Urea Nitrogen 14 mg/dL (9-16); Calcium 10.1 mg/dL (8.4-10.2); Carbon Dioxide 23 mmol/L (22-29); Chloride 102 mmol/L (96-108); Creatinine Clr Calc Pharmacy 81.5; Estimated Glomerular Filt Rate > 60; Glucose Random 331 mg/dL (60-115); Lipase 12 U/L (8-78); Potassium 3.8 mmol/L (3.3-5.1); Sodium 135 mmol/L (135-145); Total Protein 8.7 g/dL (6.5-8.0)
[2024-06-16 18:20] LABS: Influenza A PCR NEGATIVE (Negative); Influenza B PCR NEGATIVE (Negative); Resp Syncy Virus RNA Qual PCR NEGATIVE (Negative); SARS COV2 PCR INHOUSE NEGATIVE (Negative)
[2024-06-16 18:56] LABS: SLIDE REVIEW VERIFIED
[2024-06-16] MEDS: 0.9 % Sodium Chloride 500 ML IV (19:50)
[2024-06-16] MEDS: ondansetron HCL 4 MG/2 ML VIAL IVPUSH (19:50)
[2024-06-16 19:52] LABS: Glucose, Whole Blood 366 mg/dL (60-115)
--- NOTE | 2024-06-16 20:06 | PC.NURSE ---
ppt biba from home, a&ox4, respirations even and unlabored. pt reporting 10/10 abdominal pain., nausea, vomiting and some diarrhea x3 days. pt reports prior to diarrhea, she had been constipated. pt reports similar symptoms in the past due to a hernia. pt actively throwing up in room, provider aware. 20G placed in left ac.
--- NOTE | 2024-06-16 20:13 | ED_ITS ---
HPI - Abdominal Pain General Chief Complaint: Abdominal Pain Stated Complaint: N/V x 2days,dizzy Time Seen by Provider: 06/16/24 19:44 Source: patient Limitations: no limitations History of Present Illness ED Provider: Damaris butterfield PA-C HPI narrative: 38-year-old female with a history of chronic constipation, diabetes, bipolar disorder presents with abdominal pain x2 days. Patient states she is having pain in both upper and lower central abdomen. Unable to describe the nature of her discomfort. Associated intractable nausea vomiting. Patient having small amounts of diarrhea. Denies dysuria, hematuria, fever. No sick contacts with similar symptoms. Denies recent travel, use of antibiotics or hospitalizations. Related Data Home Medications ?Medication ?Instructions ?Recorded ?Confirmed cetirizine 10 mg tablet 10 mg PO DAILY 05/02/22 01/13/24 clonidine HCl 0.1 mg tablet 0.1 mg PO TID 05/02/22 01/13/24 empagliflozin 25 mg tablet 25 mg PO QAM 10/05/22 01/13/24 (Jardiance) lisinopril 20 mg tablet 20 mg PO DAILY 10/05/22 01/13/24 valacyclovir 500 mg tablet 500 mg PO DAILY 10/05/22 01/13/24 cholecalciferol (vitamin D3) 50 50 mcg PO DAILY 10/01/23 01/13/24 mcg (2,000 unit) capsule (Vitamin D3) glipizide 10 mg tablet 10 mg PO BID 10/01/23 01/13/24 tizanidine 4 mg tablet 4 mg PO BEDTIME 10/01/23 01/13/24 semaglutide 0.25 mg or 0.5 mg (2 mg subcut 11/12/23 01/13/24 mg/3 mL) subcutaneous pen injector (Ozempic) cyclobenzaprine 10 mg tablet 10 mg PO BEDTIME 12/27/23 01/13/24 hydrocortisone 1 % topical cream topical 12/27/23 01/13/24 with perineal applicator triamcinolone acetonide 0.1 % 1 appl topical BID-TID 12/27/23 01/13/24 topical cream Previous Rx's ?Medication ?Instructions ?Recorded ibuprofen 600 mg tablet 600 mg PO Q6H PRN pain #30 tabs 10/05/22 dicyclomine 20 mg tablet 20 mg PO QID 30 days #120 tabs 10/01/23 sodium sul 1.479 gram-potas ch See Rx Instructions PO PER PKG DIR 11/12/23 0.188 gram-magnes sul 0.225 gram #24 tabs tablet (Sutab) metoclopramide HCl 10 mg tablet 10 mg PO QIDACHS #120 tabs 11/27/23 (Reglan) linaclotide 290 mcg capsule 290 mcg PO QAM 30 days #30 caps 12/27/23 (Linzess) doxycycline hyclate 100 mg tablet 100 mg PO DAILY #10 tabs 01/13/24 ondansetron 4 mg disintegrating 4 mg PO DAILY PRN nausea and 03/12/24 tablet vomiting 5 days #10 tabs ciprofloxacin HCl 500 mg tablet 500 mg PO Q12H #20 tabs 06/17/24 metronidazole 500 mg tablet 500 mg PO Q8H 10 days #30 tabs 06/17/24 ondansetron HCl 8 mg tablet 8 mg PO Q8H PRN nausea and 06/17/24 vomiting #10 tabs Allergies Allergy/AdvReac Type Severity Reaction Status Date / Time Sulfa (Sulfonamide Allergy Unknown RASH Verified 06/16/24 17:07 Antibiotics) [SULFA (SULFONAMIDE ANTIBIOTICS)] Review of Systems Review of Systems Yes all other systems are reviewed and are negative Constitutional: Denies fatigue and Denies fever(s) Cardiovascular: Denies chest pain and Denies dyspnea Respiratory: Denies cough and Denies dyspnea Gastrointestinal: Reports abdominal pain, Reports diarrhea, Reports nausea and Reports vomiting Genitourinary: Denies hematuria and Denies dysuria Endocrine: Denies fatigue PMFSH Past Medical History Attestation statement: The following information was validated with the patient. Medical History Diabetes Fibromyalgia Elevated cholesterol HTN (hypertension) Nipple pain External hemorrhoids Breast pain, right Bipolar 2 disorder Surgical History History of incision and drainage (10/05/22) History of lymph node excision History of carpal tunnel release of both wrists History of appendectomy History of cholecystectomy History of tonsillectomy Family History Family History Maternal Uncle Kidney cancer Maternal Grandfather Bladder cancer Social History Social History Household Members: Family Housing: House Do you presently have visiting nurse or other home services: No Alcohol intake: never Patient Tobacco Use Status: Current everyday Tobacco user Tobacco use type: Cigarette Cigarette Packs Per Day: 1 Cigarettes Per Day: 10 Years Smoked: sine age 12 Smoked in Last 30 Days: Yes e-Cigarette/Vaping Use: Never Used Second Hand Smoke Exposure: Yes Use of substances other than those prescribed or required for medical reasons: No Substance Use Type: Marijuana Advance Directives: No Advance Directives Information Provided: No Do you have a plan to hurt others: No Plan Patient : No service: No Sexual orientation: Don't Know Physical Exam ED Vital Signs: Vital Signs - 24 hr 06/16/24 17:06 06/16/24 19:38 06/16/24 19:42 Temperature 98 F 98.3 F 98.3 F Pulse Rate 125 H 93 Respiratory Rate 19 15 Blood Pressure 179/116 H 171/101 H Pulse Oximetry 98 96 Oxygen Delivery Method Room Air Room Air 06/16/24 20:21 06/16/24 20:32 06/16/24 21:02 Temperature 98.9 F Pulse Rate 112 H 112 H Respiratory Rate 20 16 Blood Pressure 154/94 H 141/91 H Pulse Oximetry 98 Oxygen Delivery Method Room Air 06/16/24 21:26 06/16/24 21:46 06/16/24 22:18 Temperature 98.7 F 99.2 F Pulse Rate 100 112 H 140 H Respiratory Rate 16 18 Blood Pressure 147/91 H 175/93 H Pulse Oximetry 95 Oxygen Delivery Method Room Air 06/16/24 22:53 06/16/24 23:36 Temperature 98.6 F Pulse Rate 107 H 109 H Respiratory Rate 18 16 Blood Pressure 152/94 H Pulse Oximetry 95 Oxygen Delivery Method Room Air BMI result Body Mass Index 31.1 Const Other: Awake, appears much older than stated age Orientation/consciousness: patient oriented x3 Resp Other: Nonlabored respirations Cardio Other: Normal peripheral perfusion GI Other: Abdomen is soft, nondistended, obese, generalized tenderness to palpation without guarding Skin Other: Warm dry no rash Neuro General: patient oriented x3, no focal motor deficits and CN's II-XI intact bilaterally Psych Other: Cooperative Course Reevaluation(s) Reevaluation #1: Patient just coming into the pod, I am concerned for sepsis at this time. The patient has a elevated heart rate is 93, her respirations are elevated at 15, she has a significant leukocytosis of 23, she is afebrile. She is normotensive. She does not require weight based IV fluid resuscitation of 30 mL/kilogram. We will give 500 mL normal saline, collecting blood cultures and a lactic acid, starting ceftriaxone. Time: 19:45 Reevaluation #2: Patient was refractory to Zofran, I gave her Compazine and Benadryl, this helped her nausea vomiting. However, she became somewhat dystonic, and tachycardic, we obtained an EKG she has sinus tach rate of 130 at times she is fluctuating on the monitor, no ischemic changes no ectopy her QTC is 444...... Giving additional 25 mg of Benadryl and a L of fluid. The patient wants to leave, she does not want to stay for admission........ will p.o. challenge the patient to see if she can tolerate her home medications. Reevaluation #3: Patient ate a small amount and has been drinking for quite some time, we will discharge. Medical Decision Making Medical Decision Making MDM Narrative: 38-year-old female with a history of chronic constipation, diabetes, bipolar disorder presents with abdominal pain x2 days. Patient states she is having pain in both upper and lower central abdomen. Unable to describe the nature of her discomfort. Associated intractable nausea vomiting. Patient having small amounts of diarrhea. Denies dysuria, hematuria, fever. No sick contacts with similar symptoms. Denies recent travel, use of antibiotics or hospitalizations. Problem: Chronic constipation, diabetes, psychiatric illness History: Per patient I have considered the following differential diagnoses: Sepsis , viral gastroenteritis, diverticulitis, traveler's diarrhea, C diff Plan:I am concerned for sepsis at this time. The patient has a elevated heart rate is 93, her respirations are elevated at 15, she has a significant leukocytosis of 23, she is afebrile. She is normotensive. She does not require weight based IV fluid resuscitation of 30 mL/kilogram. We will give 500 mL normal saline, collecting blood cultures and a lactic acid, starting ceftriaxone. We will be obtaining a CT scan, giving morphine Zofran. Patient has generalized abdominal pain, no focal regions of discomfort, she could have diverticulitis, however her pain is not fold of the left lower quadrant. To note she has no risk factors for C diff or traveler's diarrhea. This could simply be viral gastroenteritis given such illness has been prevalent within the community. I have independently reviewed the following tests: Labs: Significant leukocytosis of 23.3 with left shift, not anemic, no electrolyte abnormality, sugars are elevated, but not in DKA, there was no gap, urine not infected, she is passing small amounts of blood, she is not CT abdomen and pelvis: CT/CT abdomen pelvis w IV con IMPRESSION: 1. Diffuse mural thickening involving the entire colon most prominent in the distal descending and sigmoid region. No pericolic fat stranding seen. Findings are suggestive of colitis. 2. Mild hepatomegaly. 3. Left corpus luteal cyst. 4. Suspect small hiatal hernia Fleischner guidelines were followed. Lab Data 06/16/24 17:32 06/16/24 17:32 Labs: Lab Results 06/16/24 06/16/24 06/16/24 Range/Units 17:32 19:48 20:02 WBC 23.3 H (4.8-10.8) X10*3/uL RBC 5.28 (4.20-5.50) X10*6/uL Hgb 16.8 H (12.0-16.0) g/dl Hct 47.3 H (37.0-47.0) % MCV 89.6 (80.0-98.0) fL MCH 31.8 (27.0-33.0) pg MCHC 35.5 H (31.0-35.0) g/dl RDW 12.4 (11.0-16.0) % Plt Count 363 (160-400) X10*3/uL MPV 9.6 (9.4-12.3) fL Immature Gran % (Auto) 0.8 H (0.0-0.4) % Neut % (Auto) 83.5 H (45-73) % Lymph % (Auto) 8.6 L (20-40) % [place] % (Auto) 6.8 (2-11) % Eos % (Auto) 0.0 (0-4) % Baso % (Auto) 0.3 (0-2) % Lymph # (Auto) 2.0 (1.2-4.9) X10*3/uL [place] # (Auto) 1.6 H (0.1-1.2) X10*3/uL Eos # (Auto) 0.0 (0.0-0.4) X10*3/uL Baso # (Auto) 0.1 (0.0-0.2) X10*3/uL Abs Immat Gran (auto) 0.18 H (0.00-0.03) X10*3/uL Absolute Neuts (auto) 19.5 H (2.0-8.3) x10*3/uL Absolute Nucleated RBC 0.000 (0.0-0.012) X10*3/uL Nucleated RBC % (auto) 0.0 (0.0-0.2) /100WBC Smear Tech's Comments VERIFIED Sodium 135 (135-145) mmol/L Potassium 3.8 (3.3-5.1) mmol/L Chloride 102 (96-108) mmol/L Carbon Dioxide 23 (22-29) mmol/L Anion Gap 14 (12-20) BUN 14 (9-16) mg/dL Creatinine 0.89 (0.5-1.4) mg/dL Estim Creat Clear Calc 81.5 Estimated GFR > 60 POC Glucose 366 H* (60-115) mg/dL Random Glucose 331 H (60-115) mg/dL Lactic Acid 2.5 H* (0.5-2.0) mmol/L Lactic Acid F/U @ 2Hr (0.5-2.0) mmol/L Calcium 10.1 (8.4-10.2) mg/dL Magnesium 2.4 (1.6-2.6) mg/dL Total Bilirubin 0.8 (0.0-1.0) mg/dL Direct Bilirubin 0.2 (0.0-0.5) mg/dL AST 20 (5-31) U/L ALT 23 (0-31) U/L Alkaline Phosphatase 78 (39-117) U/L Total Protein 8.7 H (6.5-8.0) g/dL Albumin 5.2 H (3.5-5.0) g/dL Lipase 12 (8-78) U/L Urine Color Yellow Urine Appearance Clear Urine pH 6.0 (5.0-9.0) Ur Specific [place] >= 1.030 H (1.005-1.025) Urine Protein 300 (3+) H (Neg-Trace) mg/dL Urine Glucose (UA) >=1000 H (Negative) mg/dL Urine Ketones 40 (Negative) mg/dL Urine Blood Trace H (Negative) Urine Nitrite Negative (Negative) Ur Leukocyte Esterase Negative (Negative) Urine RBC 11-20 H (0-2) /HPF Urine WBC 0-5 (0-5) /HPF Ur Squamous Epith Cells 6-10 (0-2) /HPF Urine Bacteria 1+ (None Seen) Hyaline Casts 3-5 (0-2) /LPF Urine Test NEGATIVE (NEGATIVE) Influenza Type A (PCR) NEGATIVE (Negative) Influenza Type B (PCR) NEGATIVE (Negative) RSV RNA Qual (PCR) NEGATIVE (Negative) SARS-CoV-2 RNA (RT-PCR) NEGATIVE (Negative) 06/16/24 Range/Units 22:25 WBC (4.8-10.8) X10*3/uL RBC (4.20-5.50) X10*6/uL Hgb (12.0-16.0) g/dl Hct (37.0-47.0) % MCV (80.0-98.0) fL MCH (27.0-33.0) pg MCHC (31.0-35.0) g/dl RDW (11.0-16.0) % Plt Count (160-400) X10*3/uL MPV (9.4-12.3) fL Immature Gran % (Auto) (0.0-0.4) % Neut % (Auto) (45-73) % Lymph % (Auto) (20-40) % [place] % (Auto) (2-11) % Eos % (Auto) (0-4) % Baso % (Auto) (0-2) % Lymph # (Auto) (1.2-4.9) X10*3/uL [place] # (Auto) (0.1-1.2) X10*3/uL Eos # (Auto) (0.0-0.4) X10*3/uL Baso # (Auto) (0.0-0.2) X10*3/uL Abs Immat Gran (auto) (0.00-0.03) X10*3/uL Absolute Neuts (auto) (2.0-8.3) x10*3/uL Absolute Nucleated RBC (0.0-0.012) X10*3/uL Nucleated RBC % (auto) (0.0-0.2) /100WBC Smear Tech's Comments Sodium (135-145) mmol/L Potassium (3.3-5.1) mmol/L Chloride (96-108) mmol/L Carbon Dioxide (22-29) mmol/L Anion Gap (12-20) BUN (9-16) mg/dL Creatinine (0.5-1.4) mg/dL Estim Creat Clear Calc Estimated GFR POC Glucose (60-115) mg/dL Random Glucose (60-115) mg/dL Lactic Acid (0.5-2.0) mmol/L Lactic Acid F/U @ 2Hr 1.3 (0.5-2.0) mmol/L Calcium (8.4-10.2) mg/dL Magnesium (1.6-2.6) mg/dL Total Bilirubin (0.0-1.0) mg/dL Direct Bilirubin (0.0-0.5) mg/dL AST (5-31) U/L ALT (0-31) U/L Alkaline Phosphatase (39-117) U/L Total Protein (6.5-8.0) g/dL Albumin (3.5-5.0) g/dL Lipase (8-78) U/L Urine Color Urine Appearance Urine pH (5.0-9.0) Ur Specific [place] (1.005-1.025) Urine Protein (Neg-Trace) mg/dL Urine Glucose (UA) (Negative) mg/dL Urine Ketones (Negative) mg/dL Urine Blood (Negative) Urine Nitrite (Negative) Ur Leukocyte Esterase (Negative) Urine RBC (0-2) /HPF Urine WBC (0-5) /HPF Ur Squamous Epith Cells (0-2) /HPF Urine Bacteria (None Seen) Hyaline Casts (0-2) /LPF Urine Test (NEGATIVE) Influenza Type A (PCR) (Negative) Influenza Type B (PCR) (Negative) RSV RNA Qual (PCR) (Negative) SARS-CoV-2 RNA (RT-PCR) (Negative) Medications Administered Discontinued Medications Generic Name Dose Route Start Last Admin Trade Name Keerthi PRN Reason Stop Dose Admin Ceftriaxone Sodium 2 gm 06/16/24 19:45 06/16/24 20:30 Ceftriaxone Sodium 2 Gm Vial IVPUSH 06/16/24 19:46 2 gm ONCE ONE Administration Diltiazem HCl 10 mg 06/16/24 22:42 06/16/24 22:54 Diltiazem Hcl 50 Mg/10 Ml Vial IVPUSH 06/16/24 22:43 Not Given STAT STA Diphenhydramine HCl 25 mg 06/16/24 20:09 06/16/24 20:20 Diphenhydramine Hcl 50 Mg/Ml Vial IVPUSH 06/16/24 20:10 25 mg ONCE ONE Administration Diphenhydramine HCl 25 mg 06/16/24 23:57 06/17/24 00:01 Diphenhydramine Hcl 50 Mg/Ml Vial IVPUSH 06/16/24 23:58 25 mg ONCE ONE Administration Sodium Chloride 500 mls @ 500 mls/hr 06/16/24 19:44 06/16/24 20:50 Ns IV 06/16/24 20:43 Infused .Q1H ONE Infusion Sodium Chloride 1,000 mls @ 999 mls/hr 06/16/24 22:15 06/17/24 00:42 Ns IV 06/16/24 23:15 Infused .Q1H1M LAW Infusion Metronidazole 500 mg in 100 mls @ 100 mls/hr 06/16/24 22:12 06/16/24 23:35 Flagyl IV 06/16/24 23:11 Infused ONCE ONE Infusion Iohexol 85 ml 06/16/24 20:14 06/16/24 20:15 Iohexol 350 Mg/Ml 100 Ml Infus..Btl IV 06/16/24 20:15 85 ml ONCE ONE Administration Morphine Sulfate 4 mg 06/16/24 19:59 06/16/24 20:21 Morphine Sulfate 4 Mg/Ml Cartridge IVPUSH 06/16/24 20:00 4 mg ONCE ONE Administration Protocol Ondansetron HCl 4 mg 06/16/24 19:44 06/16/24 19:50 Ondansetron Hcl 4 Mg/2 Ml Vial IVPUSH 06/16/24 19:45 4 mg ONCE ONE Administration Prochlorperazine Edisylate 10 mg 06/16/24 20:09 06/16/24 20:21 Prochlorperazine Edisylate 10 Mg/2 Ml Vial IVPUSH 06/16/24 20:10 10 mg ONCE ONE Administration Discharge Plan Discharge Clinical Impression: Colitis Patient Disposition: Home, Self-Care Instructions: Colitis (ED) Additional Instructions: You were found to have colitis on the CT scan. See home care instructions. Use the the Flagyl as directed, use the ciprofloxacin as directed. These are both antibiotics to treat the colitis. Uses Zofran as needed for nausea. Follow up with your primary care provider as needed. Return precautions for the inability to tolerate food drink or your medication, intractable nausea vomiting, fever, worsening belly pain. Prescriptions: New ondansetron HCl 8 mg tablet 8 mg PO Q8H PRN (Reason: nausea and vomiting) Qty: 10 0RF metronidazole 500 mg tablet 500 mg PO Q8H 10 Days Qty: 30 0RF ciprofloxacin HCl 500 mg tablet 500 mg PO Q12H Qty: 20 0RF No Action Sutab 1.479-0.188- 0.225 gram tablet See Rx Instructions PO PER PKG DIR Qty: 24 0RF Rx Instructions: PO PER PKG DIR for colonoscopy prep tizanidine 4 mg tablet 4 mg PO BEDTIME lisinopril 20 mg tablet 20 mg PO DAILY valacyclovir 500 mg tablet 500 mg PO DAILY Jardiance 25 mg tablet 25 mg PO QAM ibuprofen 600 mg tablet 600 mg PO Q6H PRN (Reason: pain) Qty: 30 0RF ondansetron 4 mg tablet,disintegrating 4 mg PO DAILY PRN (Reason: nausea and vomiting) 5 Days Qty: 10 0RF clonidine HCl 0.1 mg tablet 0.1 mg PO TID cetirizine 10 mg tablet 10 mg PO DAILY glipizide 10 mg tablet 10 mg PO BID cholecalciferol (vitamin D3) [Vitamin D3] 50 mcg (2,000 unit) capsule 50 mcg PO DAILY dicyclomine 20 mg tablet 20 mg PO QID 30 Days Qty: 120 6RF Ozempic 0.25 mg or 0.5 mg (2 mg/3 mL) pen injector subcut metoclopramide HCl [Reglan] 10 mg tablet 10 mg PO QIDACHS Qty: 120 6RF triamcinolone acetonide 0.1 % cream 1 appl topical BID-TID cyclobenzaprine 10 mg tablet 10 mg PO BEDTIME hydrocortisone 1 % cream with perineal applicator topical Linzess 290 mcg capsule 290 mcg PO QAM 30 Days Qty: 30 6RF Rx Instructions: Please dispense 290cmg dose NOT 145mcg doxycycline hyclate 100 mg tablet 100 mg PO DAILY Qty: 10 0RF Stand Alone Forms: Work/School Release Print Language: Albanian
[2024-06-16] MEDS: iohexoL 350 MG/ML 100 ML INFUS..BTL 85 ML IV (20:15)
[2024-06-16] MEDS: diphenhydrAMINE HCL 50 MG/ML VIAL 25 MG IVPUSH (20:20)
[2024-06-16] MEDS: Morphine Sulfate 4 MG/ML CARTRIDGE IVPUSH (20:21)
[2024-06-16] MEDS: Prochlorperazine Edisylate 10 MG/2 ML VIAL IVPUSH (20:21)
[2024-06-16 20:29] LABS: Lactic Acid 2.5 mmol/L (0.5-2.0)
[2024-06-16] MEDS: cefTRIAXone sodium 2 GM VIAL IVPUSH (20:30)
[2024-06-16 20:35] LABS: Magnesium 2.4 mg/dL (1.6-2.6)
--- NOTE | 2024-06-16 20:35 | PC.NURSE ---
pt taken to CT at this time, pt noted to be throwing up, pt medicated per mar for nausea and pain. rectal temp obtained per provider, pt tolerated well. vss.
--- NOTE | 2024-06-16 20:40 | PC.NURSE ---
at this time, provider requesting to call sepsis alert, sepsis alert called. 500ml fluids administered at this time.
[2024-06-16 22:07] LABS: Reflex Lactate? Lactic Acid Added
[2024-06-16] MEDS: metroNIDAZOLE/NS 500 MG/100 ML PIGGYBACK 100 MG IV (22:26)
[2024-06-16] MEDS: 0.9 % Sodium Chloride 1,000 ML 999 ML IV (22:27)
--- NOTE | 2024-06-16 22:28 | PC.NURSE ---
pt noted to be tachy 135-140bpm, provider aware, ekg obtained, IV fluid bolus administered.
[2024-06-16 22:45] LABS: ~Lactic Acid-LAB USE ONLY 1.3 mmol/L (0.5-2.0)
--- NOTE | 2024-06-16 23:45 | MHC.EDTECH ---
This tech took over care of pt at 2300,rounded and introduced self to pt,vitals taken,pt appears comfortable,family at bedside call [facility] in reach
[2024-06-17] MEDS: diphenhydrAMINE HCL 50 MG/ML VIAL 25 MG IVPUSH (00:01)
[2024-06-17 01:14] VITALS: BP 173/92; PULSE 105; RESP 17; TEMP 37.2; O2SAT 98
== END 2024-06-17 01:16 | disposition home or self-care (01) ==
PROVIDERS: Physician Assistant Medical; Emergency Provider Emergency Medicine Emergency Medical Services; PCP Pediatrics
DX: K52.9 Noninfective gastroenteritis and colitis, unspecified (principal); R11.2 Nausea with vomiting, unspecified; R10.2 Pelvic and perineal pain; Z79.899 Other long term (current) drug therapy; F17.210 Nicotine dependence, cigarettes, uncomplicated
CPT/HCPCS: 0241U; 36415; 74177; 80048; 80076; 81001; 81025; 82947; 83605; 83690; 83735; 85025; 87040; 93005; 99285; J0696; J0737; J1200; J1836; J2270; J2405; Q9967

== ENCOUNTER → 2024-06-16 22:15 | Outpatient (BNV) | payer MEDICARE, MEDICAID, SELFPAY | PROVIDERS: Emergency Provider Emergency Medicine Emergency Medical Services; PCP Pediatrics; Visit Provider Internal Medicine | DX: R00.0 Tachycardia, unspecified (principal) | CPT/HCPCS: 93010 ==

== ENCOUNTER 2024-06-18 15:40 | Inpatient (IN) | payer MEDICARE, MEDICAID, SELFPAY ==
[2024-06-18] VITALS (8 sets, daily range): BP systolic 133–196; BP diastolic 73–98; PULSE 81–117; RESP 14–20; TEMP 36.6–36.8; O2SAT 97–98; BMI 32.1
--- NOTE | ~2024-06-18 | CT_ITS ---
EXAMINATION: CT CHEST WITHOUT IV CONTRAST. CLINICAL INFORMATION: severfe rib pain COMPARISON: No prior CT available for comparison. TECHNIQUE: Multidetector volumetric CT imaging of the chest was done. Axial MIP volume rendering provided. Sagittal and coronal reformatted images were obtained. This CT examination was performed using dose optimization techniques as appropriate, variously including the following: *Automated exposure control *Adjustment of mA and/or kV according to patient size (this includes techniques or standardized protocols for targeted exams where dose is matched to indication/reason for exam; i.e. extremities or head) *Use of iterative reconstruction technique CONTRAST: Noncontrasted study. DLP: 407 mGy-cm FINDINGS: TELEPRINTER INSTALLER: LINES/TUBES: Well Logger reviewed, no lines. LUNGS: Lung parenchyma: No evidence of significant interstitial disease. Lung nodules/masses: Groundglass opacity left upper lobe 1.2 x 1 cm image 202 series 4. Groundglass nodule middle lobe 1.1 x 0.8 cm image 326 series 4. Groundglass density right lower lobe peripheral fissure based 1.1 cm image 327 series 4. - No evidence of neoplasm. No lung mass or suspicious nodules, there are scattered tiny micronodules, measuring 3 mm or less, nonspecific, . (Lema images). AIRWAYS: Trachea and bronchi are normal. PLEURA: No pleural effusion or pneumothorax. MEDIASTINUM AND STEPHANIA: No mediastinal, hilar or axillary lymphadenopathy. No mediastinal mass. VESSELS: HEART AND PERICARDIUM: Thoracic aorta is normal in size. Heart is normal in size. No pericardial effusion. No coronary calcification. Pulmonary arteries are normal in size. LOWER NECK, AXILLA: The visualized thyroid gland is unremarkable. No axillary mass or adenopathy. VISUALIZED ABDOMEN: Unremarkable CHEST WALL AND BONES: No chest wall mass. The visualized bony thorax is within normal limits. CT/CT chest wo IV con IMPRESSION: 1. No CT evidence of rib fracture. 2. No suspicious lung mass, there are scattered bilateral groundglass lung nodules largest 1.2 cm. 3. No lymphadenopathy. 4. No pleural effusion. No evidence of lung mass or suspicious nodules, there are scattered tiny micronodules measuring 3 mm or less, nonspecific. 5. According to the UPDATED 2017 Fleischner Society recommendations, the advised follow-up imaging for a single pure ground-glass nodule measuring 11mm or greater and/or nodules with suspicious features such as bubbly lucencies or cystic areas is: CT at 6 months to confirm persistence. If stable, then follow-up CT every 2 years until 5 years documented stability. Electronically signed by: Rodrigo Matos MD 06/20/2024 01:26 PM YUNIEL PINEDA
--- NOTE | 2024-06-18 16:24 | ED_ITS ---
HPI - Abdominal Pain General Chief Complaint: Abdominal Pain Stated Complaint: nausea,vomiting, l side abd pain Time Seen by Provider: 06/18/24 15:55 Source: patient and EMS Mode of arrival: EMS Limitations: no limitations History of Present Illness ED Provider: Mer Sotelo NP HPI narrative: Patient is a 38-year-old female with past medical history of chronic constipation, diabetes, bipolar disorder, hypertension, fibromyalgia presenting to emergency department with reports of 5 days of left-sided abdominal pain nausea vomiting and diarrhea. She reports that she was seen here in the emergency department 2 days ago, was told that she had colitis and was discharged home with oral antibiotics. She states that since discharge he has been able to take a total of 2 doses of antibiotics and then typically vomited 1 hour later. She is unable to keep down fluids. She is endorsing hematemesis. She has tried Zofran without improvement. She admits to having to diarrheal stools daily with bright red blood, admits to having hemorrhoids as well. She has pain to the left side of her abdomen left upper quadrant hurts worse than the left lower quadrant. She denies having taken any medications recently to help with her chronic constipation. Denies fevers, chills, chest pain, dysuria, urinary frequency, urinary urgency, urinary hesitancy, hematuria. denies pelvic pain or abnormal vaginal discharge. Denies concern for sexually transmitted infection. Denies concern for . Related Data Home Medications ?Medication ?Instructions ?Recorded ?Confirmed cetirizine 10 mg tablet 10 mg PO DAILY 05/02/22 06/18/24 clonidine HCl 0.1 mg tablet 0.1 mg PO TID 05/02/22 06/18/24 valacyclovir 500 mg tablet 500 mg PO DAILY 10/05/22 06/18/24 tizanidine 4 mg tablet 4 mg PO BEDTIME 10/01/23 06/18/24 ibuprofen 800 mg tablet 800 mg PO TID PRN Pain 06/18/24 06/18/24 Previous Rx's ?Medication ?Instructions ?Recorded ciprofloxacin HCl 500 mg tablet 500 mg PO Q12H #20 tabs 06/17/24 metronidazole 500 mg tablet 500 mg PO Q8H 10 days #30 tabs 06/17/24 ondansetron HCl 8 mg tablet 8 mg PO Q8H PRN nausea and 06/17/24 vomiting #10 tabs Allergies Allergy/AdvReac Type Severity Reaction Status Date / Time Sulfa (Sulfonamide Allergy Unknown RASH Verified 06/18/24 15:54 Antibiotics) [SULFA (SULFONAMIDE ANTIBIOTICS)] Review of Systems Review of Systems Yes all other systems are reviewed and are negative [facility] Past Medical History Attestation statement: The following information was validated with the patient. Source: old records reviewed Medical History Diabetes Fibromyalgia Elevated cholesterol HTN (hypertension) Nipple pain External hemorrhoids Breast pain, right Bipolar 2 disorder Surgical History History of incision and drainage (10/05/22) History of lymph node excision History of carpal tunnel release of both wrists History of appendectomy History of cholecystectomy History of tonsillectomy Family History Family History Maternal Uncle Kidney cancer Maternal Grandfather Bladder cancer Social History Social History Household Members: Family Housing: House Do you presently have visiting nurse or other home services: No Alcohol intake: never Patient Tobacco Use Status: Current everyday Tobacco user Tobacco use type: Cigarette Cigarette Packs Per Day: 0.5 Cigarettes Per Day: 10.0 Years Smoked: sine age 12 Smoked in Last 30 Days: Yes e-Cigarette/Vaping Use: Never Used Patient Interested in Nicotine Replacement: No Patient Given Instructions on How to Stop Smoking: No (patietn refused) Second Hand Smoke Exposure: Yes Use of substances other than those prescribed or required for medical reasons: Yes Substance Use Type: Marijuana Substance Use Frequency: Daily Last Used Substance: Days (ago) Last Used Substance Other:: 06/13 Currently Displaying Signs/Symptoms of Drug Intoxication Withdrawal: No Any prior treatment program specific to substance use: No Advance Directives: No Advance Directives Information Provided: No Do you have a plan to hurt others: No Plan Recently lost weight without trying: No Eating poorly because of decreased appetite: Yes Nutrition Risks: No Nutritional Risk Patient : No service: No Sexual orientation: Don't Know Physical Exam ED Vital Signs: Vital Signs - 24 hr 06/18/24 15:53 06/18/24 16:34 06/18/24 16:47 Temperature 98.1 F 97.9 F Pulse Rate 108 H 117 H 81 Respiratory Rate 20 20 14 Blood Pressure 196/98 H 160/95 H 180/96 H Pulse Oximetry 97 98 98 Oxygen Delivery Method Room Air Room Air Room Air 06/18/24 16:54 06/18/24 17:54 Temperature Pulse Rate Respiratory Rate 18 16 Blood Pressure Pulse Oximetry Oxygen Delivery Method BMI result Body Mass Index 32.1 Appearance: Alert.?Oriented to person, place and time. No acute distress.?Normal affect.?? Neck: Normal inspection.? Neck supple.?? CVS: Heart sounds normal. Tachycardia. Pulses normal.?? Respiratory: No respiratory distress.? Lung sounds clear to auscultation bilaterally?? Abdomen: Soft with epigastric and left upper quadrant tenderness upon palpation No rebound tenderness at McBurney's point. Negative psoas sign. Negative Rovsing sign. Negative Hall sign. No CVAT. Normoactive bowel sounds. No pulsatile mass.?? Skin: Skin warm and dry.? Normal skin color.? Extremities: No lower extremity edema.? Neuro: Moves all extremities spontaneously. Sensation intact bilaterally. Ambulates with normal steady gait. Course Reevaluation(s) Reevaluation #1: Patient admitted to medicine service with hospitalist Dr. Laird for intractable nausea vomiting and abdominal pain with known colitis, possibly infectious versus inflammatory. Medical Decision Making Medical Decision Making MDM Narrative: Patient is a 38-year-old female past medical history of chronic constipation, diabetes, bipolar disorder, hypertension, fibromyalgia presents emergency department for evaluation of left-sided abdominal pain with nausea vomiting diarrhea reported hematemesis and bright red blood per rectum as per HPI. In the past she has been evaluated by Gastroenterology for similar left-sided abdominal pain nausea vomiting and diarrhea with onset about a year ago. She was previously prescribed Linzess at a low dose which did not seem to be helping her symptoms, on her most recent office visit in November of 2023 was recommended to have that dosage increase though I do not see that she ever picked up the increased dosage from the pharmacy. Additionally she was scheduled to have a colonoscopy in March this unfortunately was not performed she reports that her grandfather had and she has yet to reschedule this. She has a family history of Crohn's disease, and her recent CT scan from 2 days ago revealed diffuse mural thickening involving the entire colon most prominent in the distal descending and sigmoid region without pericolic fat stranding suggestive of colitis. I discussed with patient possibility for inflammatory bowel disease, the importance of further workup with gastroenterology including colonoscopy. Will repeat basic labs in addition to CRP. She has been taking Zofran without improvement will trial Reglan, morphine 4 pain and pending re- evaluation. She is declining rectal examination at this time, has a history of external hemorrhoids per her medical record. Discussed with patient that we would like to send stool samples as well including occult stool as she declines rectal examination, will also send C diff testing, she was given a course of antibiotics, doxycycline, in March. On examination she currently has exquisite tenderness over her left upper quadrant and epigastric region, minimal tenderness in the left lower quadrant. Concern for possible gastritis, pancreatitis, PUD given her reported hematochezia (though her emesis here today is entirely green and watery). Differential Diagnosis Differential Diagnoses: The differential diagnosis associated with the presentation includes (See narrative above) No associated chest pain shortness of breath or URI symptoms to suggest pneumonia, no clinical evidence of DVT or personal history of VTE/malignancy to suggest pulmonary embolism, no chest pain to suggest myocardial infarction suspect less likely AAA, aortic dissection. Denies associated acid reflux, no tenderness upon palpation over the epigastrium or left upper quadrant to suggest gastritis, no recent hematemesis history less likely to suggest PUD. Denies excessive alcohol consumption, history of diabetes, lower suspicion acute pancreatitis. No rebound tenderness at McBurney's point, rigidity, guarding to suggest acute appendicitis. No appreciable hernia to suggest strangulation/incarceration. Lower suspicion for bowel obstruction. No associated genitourinary symptoms to suggest UTI/pyelonephritis, renal colic, hydronephrosis. hCG is negative, unlikely ectopic , lower clinical suspicion for TOA/torsion Admission/Observation Consideration of admission/observation: Escalation of care including admission/observation considered (See narrative above ) Consult Healthcare Provider Management of the patient was discussed with: Hospitalist (Dr. Cunningham) Lab Data MDM Lab Attestation statement: I reviewed the patient's lab results. 06/18/24 17:01 06/18/24 17:11 Labs: Lab Results 06/18/24 06/18/24 06/18/24 Range/Units 17:01 17:11 18:43 WBC 17.3 H (4.8-10.8) X10*3/uL RBC 5.06 (4.20-5.50) X10*6/uL Hgb 16.0 (12.0-16.0) g/dl Hct 45.8 (37.0-47.0) % MCV 90.5 (80.0-98.0) fL MCH 31.6 (27.0-33.0) pg MCHC 34.9 (31.0-35.0) g/dl RDW 12.0 (11.0-16.0) % Plt Count 325 (160-400) X10*3/uL MPV 9.8 (9.4-12.3) fL Immature Gran % (Auto) 0.7 H (0.0-0.4) % Neut % (Auto) 83.7 H (45-73) % Lymph % (Auto) 9.2 L (20-40) % [place] % (Auto) 6.0 (2-11) % Eos % (Auto) 0.1 (0-4) % Baso % (Auto) 0.3 (0-2) % Lymph # (Auto) 1.6 (1.2-4.9) X10*3/uL [place] # (Auto) 1.0 (0.1-1.2) X10*3/uL Eos # (Auto) 0.0 (0.0-0.4) X10*3/uL Baso # (Auto) 0.1 (0.0-0.2) X10*3/uL Abs Immat Gran (auto) 0.12 H (0.00-0.03) X10*3/uL Absolute Neuts (auto) 14.5 H (2.0-8.3) x10*3/uL Absolute Nucleated RBC 0.000 (0.0-0.012) X10*3/uL Nucleated RBC % (auto) 0.0 (0.0-0.2) /100WBC ESR 8 (0-20) MM/HR PT 11.8 (10.9-12.4) SEC INR 1.0 (0.9-1.1) Sodium 138 (135-145) mmol/L Potassium 3.4 (3.3-5.1) mmol/L Chloride 102 (96-108) mmol/L Carbon Dioxide 22 (22-29) mmol/L Anion Gap 17 (12-20) BUN 18 H (9-16) mg/dL Creatinine 0.95 (0.5-1.4) mg/dL Estim Creat Clear Calc 77.6 Estimated GFR > 60 Random Glucose 304 H (60-115) mg/dL Lactic Acid 1.1 (0.5-2.0) mmol/L Calcium 8.9 D (8.4-10.2) mg/dL Magnesium 2.1 (1.6-2.6) mg/dL Total Bilirubin 0.8 (0.0-1.0) mg/dL AST 33 H (5-31) U/L ALT 27 (0-31) U/L Alkaline Phosphatase 65 (39-117) U/L C-Reactive Protein 0.28 (< or = 0.50) mg/dL Total Protein 7.9 (6.5-8.0) g/dL Albumin 4.8 (3.5-5.0) g/dL Lipase 13 (8-78) U/L Beta HCG, Quant < 2 mIU/mL Urine Color Yellow Urine Appearance Clear Urine pH 5.5 (5.0-9.0) Ur Specific [place] >= 1.030 H (1.005-1.025) Urine Protein 30 (1+) H (Neg-Trace) mg/dL Urine Glucose (UA) >=1000 H (Negative) mg/dL Urine Ketones >=160 (Negative) mg/dL Urine Blood Negative (Negative) Urine Nitrite Negative (Negative) Ur Leukocyte Esterase Negative (Negative) Urine RBC 0-2 (0-2) /HPF Urine WBC 0-5 (0-5) /HPF Ur Squamous Epith Cells 3-5 (0-2) /HPF Urine Bacteria None Seen (None Seen) Hyaline Casts 0-2 (0-2) /LPF Medications Administered Generic Name Dose Route Start Last Admin Trade Name Keerthi PRN Reason Stop Dose Admin Clonidine HCl 0.1 mg 06/18/24 21:00 06/18/24 22:27 Clonidine Hcl 0.1 Mg Tablet PO 0.1 mg TID LAW Administration Protocol Metronidazole 500 mg in 100 mls @ 100 mls/hr 06/18/24 20:00 06/18/24 22:04 Flagyl IV Infused Q8H LAW Infusion Lactated Ringer's 1,000 mls @ 100 mls/hr 06/18/24 21:00 06/18/24 20:50 Lr IVCONT 06/19/24 06:59 100 mls/hr .Q10H LAW Administration Insulin Human Lispro 0 unit 06/18/24 19:15 06/18/24 20:39 Insulin Lispro 100 Unit/Ml 3 Ml Vial SUBCUT 6 unit Q6H LAW Administration Protocol Morphine Sulfate 4 mg 06/18/24 19:53 06/18/24 22:34 Morphine Sulfate 4 Mg/Ml Cartridge IVPUSH 4 mg Q4H PRN Administration Pain, Severe (Pain Scale 7-10) Protocol Ondansetron HCl 4 mg 06/18/24 19:11 06/18/24 22:27 Ondansetron Hcl 4 Mg/2 Ml Vial IVPUSH 4 mg Q8H PRN Administration Nausea and Vomiting Tizanidine HCl 4 mg 06/18/24 21:00 06/18/24 22:27 Tizanidine Hcl 4 Mg Tablet PO 4 mg BEDTIME LAW Administration Discontinued Medications Generic Name Dose Route Start Last Admin Trade Name Freq PRN Reason Stop Dose Admin Hydromorphone HCl 0.5 mg 06/18/24 17:43 06/18/24 17:54 Hydromorphone Hcl 0.5 Mg/0.5 Ml Syringe IVPUSH 06/18/24 17:44 0.5 mg ONCE ONE Administration Protocol Sodium Chloride 1,000 mls @ 999 mls/hr 06/18/24 16:45 06/18/24 18:24 Ns IV 06/18/24 17:45 Infused .Q1H1M LAW Infusion Levofloxacin 750 mg in 150 mls @ 100 mls/hr 06/18/24 18:32 06/18/24 20:47 Levaquin IV 06/18/24 20:01 Infused ONCE ONE Infusion Metoclopramide HCl 10 mg 06/18/24 16:45 06/18/24 16:54 Metoclopramide Hcl 10 Mg/2 Ml Vial IVPUSH 06/18/24 16:46 10 mg ONCE ONE Administration Morphine Sulfate 4 mg 06/18/24 16:45 06/18/24 16:54 Morphine Sulfate 4 Mg/Ml Cartridge IVPUSH 06/18/24 16:46 4 mg ONCE ONE Administration Protocol Pantoprazole Sodium 80 mg 06/18/24 19:45 06/18/24 20:41 Pantoprazole Sodium 40 Mg/10 Ml Vial IVPUSH 06/18/24 19:46 80 mg ONCE ONE Administration Critical Care Time Critical Care Time Critical Care Time: Yes Total Critical Care Time: 35 Attestation: I personally attest to this critical care time spent taking care of the patient exclusive of all other billable procedures was approximately 35 minutes including initial evaluation of patient, ordering tests, morphine/Dilaudid IV and re-evaluation, medical consultation, documentation, re-evaluation. Discharge Plan Discharge Patient Disposition: Admitted As Inpatient Interventions: Admission Worksheet (ED) Last Done: 06/18/24 20:21
[2024-06-18] MEDS: Metoclopramide HCl 10 MG/2 ML VIAL IVPUSH (16:54)
[2024-06-18] MEDS: Morphine Sulfate 4 MG/ML CARTRIDGE IVPUSH ×2 (16:54→22:34)
[2024-06-18] MEDS: 0.9 % Sodium Chloride 1,000 ML 999 ML IV (16:54)
[2024-06-18 17:12] LABS: MANUAL DIFF FLAG NO
[2024-06-18 17:24] LABS: Basophils Absolute Auto 0.1 X10*3/uL (0.0-0.2); Basophils Percent Auto 0.3 % (0-2); Eosinophils Percent Auto 0.1 % (0-4); Hematocrit 45.8 % (37.0-47.0); Imm Gran Abs Auto 0.12 X10*3/uL (0.00-0.03); Imm Gran Pct Auto 0.7 % (0.0-0.4); Lymphocytes Absolute Auto 1.6 X10*3/uL (1.2-4.9); Lymphocytes Percent Auto 9.2 % (20-40); Mean Corpuscular HGB Conc 34.9 g/dl (31.0-35.0); Mean Corpuscular Hemoglobin 31.6 pg (27.0-33.0); Mean Corpuscular Volume 90.5 fL (80.0-98.0); Mean Platelet Volume 9.8 fL (9.4-12.3); Neutrophils Absolute Auto 14.5 x10*3/uL (2.0-8.3); Neutrophils Percent Auto 83.7 % (45-73); Platelet Count 325 X10*3/uL (160-400); Red Blood Count 5.06 X10*6/uL (4.20-5.50); White Blood Count 17.3 X10*3/uL (4.8-10.8)
[2024-06-18 17:31] LABS: Lactic Acid 1.1 mmol/L (0.5-2.0)
[2024-06-18 17:33] LABS: Alanine Aminotransferase 27 U/L (0-31); Albumin Level 4.8 g/dL (3.5-5.0); Alkaline Phosphatase 65 U/L (39-117); Anion Gap 17 (12-20); Aspartate Amino Transferase 33 U/L (5-31); Bilirubin Total 0.8 mg/dL (0.0-1.0); Blood Urea Nitrogen 18 mg/dL (9-16); C Reactive Protein 0.28 mg/dL (< or = 0.50); Calcium 8.9 mg/dL (8.4-10.2); Carbon Dioxide 22 mmol/L (22-29); Chloride 102 mmol/L (96-108); Creatinine Clr Calc Pharmacy 77.6; Estimated Glomerular Filt Rate > 60; Glucose Random 304 mg/dL (60-115); Lipase 13 U/L (8-78); Magnesium 2.1 mg/dL (1.6-2.6); Potassium 3.4 mmol/L (3.3-5.1); Sodium 138 mmol/L (135-145); Total Protein 7.9 g/dL (6.5-8.0)
[2024-06-18 17:41] LABS: HCG Quantitative < 2 mIU/mL
[2024-06-18 17:43] LABS: Prothrombin Time 11.8 SEC (10.9-12.4)
[2024-06-18] MEDS: HYDROmorphone HCl 0.5 MG/0.5 ML SYRINGE IVPUSH (17:54)
[2024-06-18 18:25] LABS: Erythrocyte Sedimentation Rate 8 MM/HR (0-20)
--- NOTE | 2024-06-18 18:25 | PC.NURSE ---
Pt presents to ED from home, reports she was here Saturday and diagnosed with Colitis, taking oral ABX. Reports all week she has had N/V, bloody stool and severe LLQ pain. Unable to tolerate PO well. Alert and oriented, breathing even and unlabored, skin warm and dry.
[2024-06-18] MEDS: levoFLOXacin/D5W 750 MG/150 ML PIGGYBACK 100 MG IV (18:39)
[2024-06-18 18:57] LABS: Appearance Urine Clear; Color Urine Yellow; Glucose Urine UA >=1000 mg/dL (Negative); Leukocyte Esterase Urine Negative (Negative); Nitrite Urine Negative (Negative); PH 5.5 (5.0-9.0); Specific Gravity - Urine >= 1.030 (1.005-1.025); UMIC TRIGGER UACC YES; Urine Blood Negative (Negative); Urine Ketones >=160 mg/dL (Negative); Urine Protein 30 (1+) mg/dL (Neg-Trace)
[2024-06-18 19:00] LABS: Bacteria Urine None Seen (None Seen); Hyaline Casts Urine 0-2 /LPF (0-2); RBC Urine 0-2 /HPF (0-2); WBC Urine 0-5 /HPF (0-5)
--- NOTE | 2024-06-18 19:15 | P.HPHOSP_ITS ---
History of Present Illness Date of Service: 06/18/24 Attending physician on admission: Debora Cunningham Chief Complaint: Abdominal pain Pt is a 38-year-old female with a PMH significant for?mad-ppyndzk-pamatycjn type 2 diabetes, HTN, fibromyalgia, and bipolar disorder who presents to the ED with?intractable nausea, vomiting, left-sided abdominal pain, and hematochezia x3 days. Patient reports symptoms began ?out of the blue? on Saturday. Abdominal pain has been primarily left sided in LUQ. Some chest pain associated with vomiting. Patient denies diarrhea and has had formed stools. Patient initially presented to the ED on Saturday and was diagnosed with colitis and started on oral antibiotics. Since then patient states that nausea, vomiting, and abdominal pain have persisted. Has been unable to tolerate anything by mouth, including medications, as will began vomiting within the hour after any oral intake. Thinks she saw some flecks of blood in some of her vomit yesterday and today. Today patient noticed bright red blood per rectum after bowel movement. Patient does have a history of hemorrhoids. Subjective fever and chills at home. Patient also notes has a diffuse, pruritic rash on back, shoulders, and upper arms that is worsened after a hot shower. Of note, the patient reports presented to the ED in March with similar symptoms. Nausea and vomiting eventually went away, but abdominal pain has lingered since that time. In the ED pt was tachycardic up to 108 and hypertensive as high as 196/98. Labs were significant for leukocytosis of 17.3 otherwise grossly unremarkable and around baseline for patient. Stable H&H. No significant electrolyte abnormalities. Renal function baseline. Hepatic function baseline. Lactic acid WNL at 1.1. UA negative for UTI. CT of abdomen/pelvis from 2 days ago on 06/16 found diffuse mural thickening involving entire colon without fat stranding, findings suggestive of colitis. Pt was treated with IVF, metoclopramide, morphine, hydromorphone, and levofloxacin. Pt will be admitted to the hospital treatment and further evaluation of intractable nausea, vomiting, and abdominal pain in the setting of colitis. Review of Systems 2 Review of Systems: Negative except for that which is stated in the [facility] Medical History Diabetes Fibromyalgia Elevated cholesterol HTN (hypertension) Nipple pain External hemorrhoids Breast pain, right Bipolar 2 disorder Family History Maternal Uncle Kidney cancer Maternal Grandfather Bladder cancer Surgical History History of incision and drainage (10/05/22) History of lymph node excision History of carpal tunnel release of both wrists History of appendectomy History of cholecystectomy History of tonsillectomy Social History Household Members: Family Housing: House Do you presently have visiting nurse or other home services: No Alcohol intake: never Patient Tobacco Use Status: Current everyday Tobacco user Tobacco use type: Cigarette Cigarette Packs Per Day: 1 Cigarettes Per Day: 10 Years Smoked: sine age 12 Smoked in Last 30 Days: Yes e-Cigarette/Vaping Use: Never Used Second Hand Smoke Exposure: Yes Use of substances other than those prescribed or required for medical reasons: No Substance Use Type: Marijuana Advance Directives: No Advance Directives Information Provided: No Patient : No service: No Sexual orientation: Don't Know Meds Allergies Allergy/AdvReac Type Severity Reaction Status Date / Time Sulfa (Sulfonamide Allergy Unknown RASH Verified 06/18/24 15:54 Antibiotics) [SULFA (SULFONAMIDE ANTIBIOTICS)] Active Medications: Current Medications Acetaminophen (Acetaminophen 325 Mg Tablet) 650 mg PO Q6H PRN PRN Reason: Pain, Mild (Pain Scale 1-3), fever or headache Calcium Carbonate (Calcium Carbonate 750 Mg Tab.Chew) 750 mg PO Q4H PRN PRN Reason: Heartburn Glucose (Glucose Gel 15 Gm Gel..Gram.) 15 gm PO Q15M PRN; Protocol PRN Reason: per Hypoglycemia Standing Ord. Levofloxacin (Levaquin) 750 mg in 150 mls @ 100 mls/hr IV ONCE ONE Stop: 06/18/24 20:01 Last Admin: 06/18/24 18:39 Dose: 100 mls/hr Dextrose (D10) 250 mls @ 750 mls/hr IV Q15M PRN; Protocol PRN Reason: per Hypoglycemia Standing Ord. Insulin Human Lispro (Insulin Lispro 100 Unit/Ml 3 Ml Vial) 0 unit SUBCUT Q6H LAW; Protocol Magnesium Hydroxide (Milk Of Magnesia 30 Ml Oral.Susp) 30 ml PO DAILY PRN PRN Reason: Constipation Melatonin (Melatonin 3 Mg Tablet) 6 mg PO BEDTIME PRN PRN Reason: Insomnia Ondansetron HCl (Ondansetron Hcl 4 Mg/2 Ml Vial) 4 mg IVPUSH Q8H PRN PRN Reason: Nausea and Vomiting Sodium Chloride (0.9 % Sodium Chloride Flush 3 Ml Syringe) [facility] Medications ?Medication ?Instructions ?Recorded ?Confirmed ?Last Taken ?Type cetirizine 10 mg tablet 10 mg PO DAILY 05/02/22 06/18/24 06/17/24 History clonidine HCl 0.1 mg tablet 0.1 mg PO TID 05/02/22 06/18/24 06/17/24 History valacyclovir 500 mg tablet 500 mg PO DAILY 10/05/22 06/18/24 06/17/24 History tizanidine 4 mg tablet 4 mg PO BEDTIME 10/01/23 06/18/24 06/17/24 History ibuprofen 800 mg tablet 800 mg PO TID PRN Pain 06/18/24 06/18/24 06/17/24 History Physical Exam 2 Vital Signs and Narrative: Vital Signs: Last Vital Signs Temp 98.1 F 06/18/24 15:53 Pulse 81 06/18/24 16:47 Resp 16 06/18/24 17:54 BP 180/96 H 06/18/24 16:47 Pulse Ox 98 06/18/24 16:47 O2 Del Method Room Air 06/18/24 16:47 BMI result Body Mass Index 32.1 Constitutional: Alert, in no acute distress. Mental Status: Oriented to person, place and time. Eyes: Pupils are equal, round, and reactive to light. Ear, Nose, and Throat: Oropharynx clear, mucous membranes moist. Ears and nose without deformities. Trachea midline. Respiratory: Clear to auscultation bilaterally. No wheezing, rales, or rhonchi. Cardiovascular: S1, S2 regular. No murmurs, rubs, or gallops. Gastrointestinal: Abdomen soft, with diffuse tenderness, especially in LUQ and epigastric region. Normal bowel sounds. Neurologic: Cranial nerves II-XII are grossly intact bilaterally. No focal neurological deficits. Moves all extremities spontaneously. Skin: Warm, dry. Diffuse areas of erythematous and pruritic, raised plaques on back and shoulders and upper extremities bilaterally Extremities: No edema. Psychiatric: Normal mood and affect. Results Labs 06/18/24 17:01 06/18/24 17:11 Labs: Laboratory Results - last 24 hr 06/18/24 06/18/24 06/18/24 17:01 17:11 18:43 MCV 90.5 MCH 31.6 MCHC 34.9 RDW 12.0 Plt Count 325 MPV 9.8 Immature Gran % (Auto) 0.7 H Neut % (Auto) 83.7 H Lymph % (Auto) 9.2 L [place] % (Auto) 6.0 Eos % (Auto) 0.1 Baso % (Auto) 0.3 Lymph # (Auto) 1.6 [place] # (Auto) 1.0 Eos # (Auto) 0.0 Baso # (Auto) 0.1 Abs Immat Gran (auto) 0.12 H Absolute Neuts (auto) 14.5 H Absolute Nucleated RBC 0.000 Nucleated RBC % (auto) 0.0 ESR 8 PT 11.8 INR 1.0 Anion Gap 17 Estim Creat Clear Calc 77.6 Estimated GFR > 60 Random Glucose 304 H Lactic Acid 1.1 Calcium 8.9 D Magnesium 2.1 Total Bilirubin 0.8 AST 33 H ALT 27 Alkaline Phosphatase 65 C-Reactive Protein 0.28 Total Protein 7.9 Albumin 4.8 Lipase 13 Beta HCG, Quant < 2 Urine Color Yellow Urine Appearance Clear Urine pH 5.5 Ur Specific [place] >= 1.030 H Urine Protein 30 (1+) H Urine Glucose (UA) >=1000 H Urine Ketones >=160 Urine Blood Negative Urine Nitrite Negative Ur Leukocyte Esterase Negative Urine RBC 0-2 Urine WBC 0-5 Ur Squamous Epith Cells 3-5 Urine Bacteria None Seen Hyaline Casts 0-2 Assessment and Plan (1) Intractable nausea and vomiting: Status: Acute Plan Pt is a 38-year-old female with a PMH significant for?ikx-pfnnjwf-vdqspreju type 2 diabetes, HTN, fibromyalgia, and bipolar disorder who presents to the ED with?intractable nausea, vomiting, left-sided abdominal pain, and hematochezia x3 days. Pt will be admitted to the hospital treatment and further evaluation of intractable nausea, vomiting, and abdominal pain in the setting of colitis. Intractable nausea, vomiting, abdominal pain in the setting of colitis CT of abdomen/pelvis from 06/16 showed diffuse mural thickening of entire colon, suggestive of colitis Unclear etiology: Infectious versus inflammatory Meets SIRS criteria: Tachycardic, leukocytosis; lactic acid WNL at 1.1 Patient given fluid and started on broad-spectrum antibiotics in the ED Will empirically treat with ceftriaxone and metronidazole, started 06/18/2024 Check C diff, GI panel Antiemetics, analgesics for pain management GI consult Patient will be kept NPO for now ?Cholinergic urticaria Pt reports diffuse erythematous, pruritic rash on back, upper shoulders and arms bilaterally Worse after taking a hot shower Follow up outpatient with Dermatology HTN Patient's blood pressure is high as 196/98 Review of records indicate patient has been persistently hypertensive during past ED visits Continue clonidine Labetalol 5 mg IV prn for SBP >170 Should follow up outpatient with PCP for further BP management Fibromyalgia Continue tizanidine Mood disorder Continue clonidine Full Code Attending:?Dr. Cunningham DVT Prophylaxis: Pneumatic compression due to possible GI procedure Given the patient has been unable to tolerate p.o. intake x3 days and unable to take home medications, pt will require a hospitalization of at least two nights for treatment of?intractable nausea, vomiting, abdominal pain in setting of colitis with administration of IV antibiotics, IV analgesics, and IV anti emetics, as well as specialist consultation with GI. Quality Stroke Does the patient have a stroke diagnosis?: No VTE Prior VTE?: No VTE Risk Level:: Medical - moderate - high VTE Device Contraindication: N/A - Device Ordered VTE Drug Contraindication: Treatment Not Indicated
--- NOTE | 2024-06-18 20:17 | PHA.MEDREC ---
Addendum entered by Kristen Delgado RPh 06/18/24 20:59: Reviewed by [facility] Original Note: Pharmacy Consult ? Medication Reconciliation Pharmacy has completed the medication reconciliation. Spoke with patient and confirmed medications. Patient confirmed she is no longer taking the Trulicity injection and states she stopped that months ago but looking in claims Trulicity 1.5 mg/0.5 mL was filled 06/08 for 28 days, I kept that off the med rec. Also the patient confirmed she is not taking Jardiance 25mg and has not in a while but the patient states she should be taking it but forgot and never started again, I kept that off the med rec. She also confirmed she is no longer taking the Ketoconazole Cream and states when she started it, it actually made her rash worse so she stopped that right away. The patient also confirmed she was taking Terbinafine 250mg tabs but stopped them on Saturday due to not liking it while taking it. She confirmed she started the Ciprofloxacin 500mg tab yesterday and took her morning dose of that this morning. She confirmed she took the Ciprofloxacin 500mg along with Ondansetron 8mg tabs this morning and everything else she states she took yesterday.
[2024-06-18 20:35] LABS: Glucose, Whole Blood 253 mg/dL (60-115)
[2024-06-18] MEDS: Insulin Lispro 100 UNIT/ML 3 ML VIAL SUBCUT (20:39)
[2024-06-18] MEDS: Pantoprazole Sodium 40 MG/10 ML VIAL 80 MG IVPUSH (20:41)
[2024-06-18] MEDS: metroNIDAZOLE/NS 500 MG/100 ML PIGGYBACK 100 MG IV (20:42)
[2024-06-18] MEDS: Lactated Ringers 1,000 ML 100 ML IVCONT (20:50)
[2024-06-18] MEDS: TiZANidine HCL 4 MG TABLET PO (22:27)
[2024-06-18] MEDS: cloNIDine HCL 0.1 MG TABLET PO (22:27)
[2024-06-18] MEDS: ondansetron HCL 4 MG/2 ML VIAL IVPUSH (22:27)
[2024-06-19] VITALS (8 sets, daily range): BP systolic 132–166; BP diastolic 80–94; PULSE 68–89; RESP 16–19; TEMP 36.3–36.7; O2SAT 96–99; BMI 31.0
[2024-06-19 00:39] LABS: Glucose, Whole Blood 118 mg/dL (60-115)
[2024-06-19] MEDS: Metoclopramide HCl 10 MG/2 ML VIAL IVPUSH (02:24)
[2024-06-19] MEDS: Morphine Sulfate 4 MG/ML CARTRIDGE IVPUSH ×5 (02:25→19:43)
[2024-06-19] MEDS: Melatonin 3 MG TABLET 6 MG PO ×2 (02:51→23:02)
[2024-06-19] MEDS: metroNIDAZOLE/NS 500 MG/100 ML PIGGYBACK 100 MG IV ×3 (04:44→21:14)
[2024-06-19 06:09] LABS: Glucose, Whole Blood 134 mg/dL (60-115)
[2024-06-19] MEDS: 0.9 % Sodium Chloride Flush 3 ML SYRINGE IVFLUSH (06:25)
[2024-06-19] MEDS: Calcium Carbonate 750 MG TAB.CHEW PO ×2 (06:26→10:55)
[2024-06-19 06:58] LABS: MANUAL DIFF FLAG NO
[2024-06-19 07:01] LABS: Basophils Percent Auto 0.3 % (0-2); Eosinophils Percent Auto 0.3 % (0-4); Hematocrit 42.4 % (37.0-47.0); Hemoglobin 14.8 g/dl (12.0-16.0); Imm Gran Abs Auto 0.07 X10*3/uL (0.00-0.03); Imm Gran Pct Auto 0.6 % (0.0-0.4); Lymphocytes Absolute Auto 3.2 X10*3/uL (1.2-4.9); Lymphocytes Percent Auto 28.7 % (20-40); Mean Corpuscular HGB Conc 34.9 g/dl (31.0-35.0); Mean Corpuscular Hemoglobin 31.7 pg (27.0-33.0); Mean Corpuscular Volume 90.8 fL (80.0-98.0); Mean Platelet Volume 9.5 fL (9.4-12.3); Monocytes Percent Auto 8.9 % (2-11); Neutrophils Absolute Auto 6.9 x10*3/uL (2.0-8.3); Neutrophils Percent Auto 61.2 % (45-73); Platelet Count 250 X10*3/uL (160-400); Red Blood Count 4.67 X10*6/uL (4.20-5.50); Red Cell Distribution Width 11.9 % (11.0-16.0); White Blood Count 11.2 X10*3/uL (4.8-10.8)
[2024-06-19 07:26] LABS: Anion Gap 16 (12-20); Blood Urea Nitrogen 11 mg/dL (9-16); Calcium 8.6 mg/dL (8.4-10.2); Carbon Dioxide 21 mmol/L (22-29); Chloride 103 mmol/L (96-108); Creatinine Clr Calc Pharmacy 100.6; Estimated Glomerular Filt Rate > 60; Glucose Random 136 mg/dL (60-115); Potassium 3.1 mmol/L (3.3-5.1); Sodium 137 mmol/L (135-145)
[2024-06-19] MEDS: Loratadine 10 MG TABLET PO (07:54)
[2024-06-19] MEDS: valACYclovir HCL 500 MG TABLET PO (07:54)
[2024-06-19] MEDS: cloNIDine HCL 0.1 MG TABLET PO ×3 (07:54→21:06)
[2024-06-19] MEDS: oxyCODONE HCl Immed Release 5 MG TABLET PO ×2 (07:57→23:02)
[2024-06-19 08:20] LABS: Glucose, Whole Blood 148 mg/dL (60-115)
--- NOTE | 2024-06-19 08:32 | P.CNGI_ITS ---
History of Present Illness Data of Consult Service Date: 06/19/24 Requesting physician: Debora Cunningham Primary Care Provider: Obdulia Elliott MD HPI Reason for consult: Colitis 38 y.o F with PMH of who presented to the hospital yest for abd pain, vomiting and diarrhea x 5 days. Pt was seen in ER initially on 06/16 for similar symptoms and at that time was managed as infectious gastroenteritis with outpatient Abx. However pt reports she has not been able to tolerate any PO including the antibiotics and therefore returned to the hospital. Partner recalls pt had outside food (pot roast) on saturday and may have triggered the sx. Pt also reports background of chronic GI sx including intermittent R sided pain which has been ongoing x 3 months and feels like a rib pain to her since it gets worse with deep breathign or movements. In addition, also has frequent N/V which gets better with smoking marijuana. Diarrhea reported with this ongoing episode but at baseline BMs fluctuate between constipation x 3-4 days vs loose watery BMs 3-4 times a day. Pt was supposed to undergo outpatient endoscopy in [place] but lost her grandfather around that time and had to cancel that appointment. Labs with leukocytpsis and hypokalemia keeping wiht infectious colitis. Stool studies negative. Imaging with pancolonic wall thickening. Review of Systems 2 Review of Systems: Yes all other systems are reviewed and are negative [facility] [place] Past Medical History Medical History Diabetes Fibromyalgia Elevated cholesterol HTN (hypertension) Nipple pain External hemorrhoids Breast pain, right Bipolar 2 disorder Family History Family History Maternal Uncle Kidney cancer Maternal Grandfather Bladder cancer Surgical History Surgical History History of incision and drainage (10/05/22) History of lymph node excision History of carpal tunnel release of both wrists History of appendectomy History of cholecystectomy History of tonsillectomy Social History Social History Household Members: Family Housing: House Do you presently have visiting nurse or other home services: No Alcohol intake: never Patient Tobacco Use Status: Current everyday Tobacco user Tobacco use type: Cigarette Cigarette Packs Per Day: 0.5 Cigarettes Per Day: 10.0 Years Smoked: sine age 12 e-Cigarette/Vaping Use: Never Used Second Hand Smoke Exposure: Yes Substance Use Type: Marijuana service: No Sexual orientation: Don't Know Meds Allergies Allergy/AdvReac Type Severity Reaction Status Date / Time Sulfa (Sulfonamide Allergy Unknown RASH Verified 06/18/24 15:54 Antibiotics) [SULFA (SULFONAMIDE ANTIBIOTICS)] Active Medications: Current Medications Acetaminophen (Acetaminophen 325 Mg Tablet) 650 mg PO Q6H PRN PRN Reason: Pain, Mild (Pain Scale 1-3), fever or headache Calcium Carbonate (Calcium Carbonate 750 Mg Tab.Chew) 750 mg PO Q4H PRN PRN Reason: Heartburn Last Admin: 06/19/24 06:26 Dose: 750 mg Ceftriaxone Sodium (Ceftriaxone Sodium 1 Gm Vial) 1 gm IVPUSH Q24H LAW Clonidine HCl (Clonidine Hcl 0.1 Mg Tablet) 0.1 mg PO TID LAW; Protocol Last Admin: 06/19/24 07:54 Dose: 0.1 mg Glucose (Glucose Gel 15 Gm Gel..Gram.) 15 gm PO Q15M PRN; Protocol PRN Reason: per Hypoglycemia Standing Ord. Dextrose (D10) 250 mls @ 750 mls/hr IV Q15M PRN; Protocol PRN Reason: per Hypoglycemia Standing Ord. Metronidazole (Flagyl) 500 mg in 100 mls @ 100 mls/hr IV Q8H [facility] Last Infusion: 06/19/24 05:49 Dose: Infused Insulin Human Lispro (Insulin Lispro 100 Unit/Ml 3 Ml Vial) 0 unit SUBCUT QIDACHS [facility]; Protocol Loratadine (Loratadine 10 Mg Tablet) 10 mg PO DAILY [facility] Last Admin: 06/19/24 07:54 Dose: 10 mg Magnesium Hydroxide (Milk Of Magnesia 30 Ml Oral.Susp) 30 ml PO DAILY PRN PRN Reason: Constipation Melatonin (Melatonin 3 Mg Tablet) 6 mg PO BEDTIME PRN PRN Reason: Insomnia Last Admin: 06/19/24 02:51 Dose: 6 mg Morphine Sulfate (Morphine Sulfate 4 Mg/Ml Cartridge) 4 mg IVPUSH Q4H PRN; Protocol PRN Reason: Pain, Severe (Pain Scale 7-10) Last Admin: 06/19/24 06:22 Dose: 4 mg Ondansetron HCl (Ondansetron Hcl 4 Mg/2 Ml Vial) 4 mg IVPUSH Q8H PRN PRN Reason: Nausea and Vomiting Last Admin: 06/18/24 22:27 Dose: 4 mg Oxycodone HCl (Oxycodone Hcl Immed Release 5 Mg Tablet) 5 mg PO Q6H PRN PRN Reason: Pain, Moderate(Pain Scale 4-6) Last Admin: 06/19/24 07:57 Dose: 5 mg Sodium Chloride (0.9 % Sodium Chloride Flush 3 Ml Syringe) 3 ml IVFLUSH QSHIFT [facility] Last Admin: 06/19/24 06:25 Dose: 3 ml Sodium Chloride (Sodium Chloride 0.65 % Nasal 44 Ml Sprbtl) 1 spray NOSTRIL-B Q1H PRN PRN Reason: Dry Nasal Passages Tizanidine HCl (Tizanidine Hcl 4 Mg Tablet) 4 mg PO BEDTIME [facility] Last Admin: 06/18/24 22:27 Dose: 4 mg Valacyclovir HCl (Valacyclovir Hcl 500 Mg Tablet) 500 mg PO DAILY [facility] Last Admin: 06/19/24 07:54 Dose: 500 mg Home Medications ?Medication ?Instructions ?Recorded ?Confirmed ?Last Taken ?Type cetirizine 10 mg tablet 10 mg PO DAILY 05/02/22 06/18/24 06/17/24 History clonidine HCl 0.1 mg tablet 0.1 mg PO TID 05/02/22 06/18/24 06/17/24 History valacyclovir 500 mg tablet 500 mg PO DAILY 10/05/22 06/18/24 06/17/24 History tizanidine 4 mg tablet 4 mg PO BEDTIME 10/01/23 06/18/24 06/17/24 History ibuprofen 800 mg tablet 800 mg PO TID PRN Pain 06/18/24 06/18/24 06/17/24 History Physical Exam 2 Vital Signs: Vital Signs: Last Vital Signs Temp 97.6 F 06/19/24 07:40 Pulse 68 06/19/24 07:40 Resp 18 06/19/24 07:40 BP 153/89 H 06/19/24 07:40 Pulse Ox 97 06/19/24 07:40 O2 Del Method Room Air 06/19/24 07:40 BMI result Body Mass Index 31.0 No apparent distress, with obesity Nonicteric Out of proportion tenderness to palpation of R sided lower ribs Abdomen soft, nondistended, no guarding Alert and oriented x3 Results Labs 06/20/24 06:55 06/20/24 06:55 Labs: Short CBC 06/18/24 06/19/24 Range/Units 17:01 06:53 WBC 17.3 H 11.2 H (4.8-10.8) X10*3/uL Hgb 16.0 14.8 (12.0-16.0) g/dl Hct 45.8 42.4 (37.0-47.0) % Plt Count 325 250 (160-400) X10*3/uL BMP 06/18/24 06/19/24 17:11 06:53 Sodium 138 137 Potassium 3.4 3.1 L Chloride 102 103 Carbon Dioxide 22 21 L BUN 18 H 11 Creatinine 0.95 0.72 Calcium 8.9 D 8.6 Liver Function 06/18/24 Range/Units 17:11 Total Bilirubin 0.8 (0.0-1.0) mg/dL AST 33 H (5-31) U/L ALT 27 (0-31) U/L Alkaline Phosphatase 65 (39-117) U/L Albumin 4.8 (3.5-5.0) g/dL Urine 06/18/24 Range/Units 18:43 Urine Color Yellow Urine Appearance Clear Urine pH 5.5 (5.0-9.0) Ur Specific [place] >= 1.030 H (1.005-1.025) Urine Protein 30 (1+) H (Neg-Trace) mg/dL Urine Glucose (UA) >=1000 H (Negative) mg/dL Assessment and Plan (1) Nausea and vomiting: Status: Acute (2) Abdominal pain: Status: Acute (3) Diarrhea: Status: Acute (4) Colitis: Status: Inactive Plan The recent acute episode of abd pain, N,V,D appears to be in the setting of food related GI illness. However given background of similar sx ongoing x 3 months with + findings on CT scan will proceed with inpatient colonscopy. Ddx for colitis includes infectious, ischemic, inflammatory. An upper endoscopy will eb done at esame time for ongoing N/V and inability to tolerate PO x week. Plan: - EGD/colo tentatively on 12/23 - Diet as tolerated today and tmrw - Clear liquid diet 06/21 - NPO after midnight for procedures on 06/22 - PEG ordered - Consider ct chest for severe rib pain reported by the pt Thank you for allowing me to participate in her care. Please do not hesitate to reach out for questions or concerns. Procedures Date of Service Date of Service: 06/20/24
[2024-06-19 08:43] LABS: OBS Int Ctl Valid YES; OBS1 NEGATIVE (NEGATIVE)
[2024-06-19 09:28] LABS: CDiff Gene PCR NEGATIVE (Negative)
[2024-06-19 10:01] LABS: C Reactive Protein 0.38 mg/dL (< or = 0.50)
[2024-06-19 10:44] LABS: Adenovirus F 40/41 Not Detected (Not Detect.); Astrovirus Not Detected (Not Detect.); Campylobacter Not Detected (Not Detect.); Cryptosporidium Not Detected (Not Detect.); Cyclospora cayetanensis Not Detected (Not Detect.); E. coli EAEC Not Detected (Not Detect.); E. coli EPEC Not Detected (Not Detect.); E. coli ETEC Not Detected (Not Detect.); E. coli STEC Not Detected (Not Detect.); Entamoeba histolytica Not Detected (Not Detect.); Giardia lamblia Not Detected (Not Detect.); Norovirus GI/GII Not Detected (Not Detect.); Plesiomonas shigelloides Not Detected (Not Detect.); Rotavirus A Not Detected (Not Detect.); Salmonella Not Detected (Not Detect.); Sapovirus Not Detected (Not Detect.); Shigella sp./EIEC Not Detected (Not Detect.); Vibrio Not Detected (Not Detect.); Vibrio Cholerae Not Detected (Not Detect.); Yersinia enterocolitica Not Detected (Not Detect.)
[2024-06-19] MEDS: 0.9 % Sodium Chloride 1,000 ML 100 ML IVCONT ×2 (10:49→19:46)
[2024-06-19] MEDS: Potassium Chloride/H20 10 MEQ/100 ML PIGGYBACK 100 MEQ IV ×2 (10:52→12:26)
[2024-06-19 12:51] LABS: Glucose, Whole Blood 188 mg/dL (60-115)
--- NOTE | 2024-06-19 14:18 | MHC.CM.PN ---
IMM 06/19/24, EMR REVIEWED, PT W/ABD PAIN/DIARRHEA, CM MET W/PT WHO REPORTS SHE LIVES W/HER , PARENTS, SISTER AND JENIFFER, PT IS FULLY INDEP W/ALL CARE, DENIES USE OF DME OTHER THAN DIABETIC SUPPLIES, PT REPORTS [employer] WON'T COVER HER FREESTYLE TEST STRIPS, PT DENIES HAVING HOME SERVICES. PT VERIFIES PCP ON FILE IS CORRECT AND HAS BEEN EDUCATED ON HCP'S AND CURRENTLY DECLINES TO COMPLETE ONE.
--- NOTE | 2024-06-19 16:16 | P.PNIM_ITS ---
Subjective Subjective Date of Service: 06/19/24 Interval History: no diarrhea nausea improved and wishes to try clears c/o abd pain Review of Systems Review of Systems: Yes all other systems are reviewed and are negative Physical Exam 2 Vital Signs: Vital Signs: Last Vital Signs Temp 97.4 F 06/19/24 15:29 Pulse 83 06/19/24 15:29 Resp 18 06/19/24 15:29 BP 154/94 H 06/19/24 15:29 Pulse Ox 98 06/19/24 15:29 O2 Del Method Room Air 06/19/24 15:29 BMI result Body Mass Index 31.0 Gen: in no acute distress HEENT: sclera anicteric, moist mucus membranes Neck: supple Lungs: clear to auscultation bilaterally Heart: regular rate and rhythm, no murmurs Abd: soft, diffusely tender without rebound, non-distended Ext: no edema Skin: warm/well-perfused Neuro: alert and oriented x3, no focal findings Psych: appropriate affect Objective Data Active Medications Acetaminophen (Acetaminophen 325 Mg Tablet) 650 mg PO Q6H PRN PRN Reason: Pain, Mild (Pain Scale 1-3), fever or headache Calcium Carbonate (Calcium Carbonate 750 Mg Tab.Chew) 750 mg PO Q4H PRN PRN Reason: Heartburn Last Admin: 06/19/24 10:55 Dose: 750 mg Documented By: JOHNNIE Ceftriaxone Sodium (Ceftriaxone Sodium 1 Gm Vial) 1 gm IVPUSH Q24H [facility] Clonidine HCl (Clonidine Hcl 0.1 Mg Tablet) 0.1 mg PO TID [facility]; Protocol Last Admin: 06/19/24 15:18 Dose: 0.1 mg Documented By: JOHNNIE Glucose (Glucose Gel 15 Gm Gel..Gram.) 15 gm PO Q15M PRN; Protocol PRN Reason: per Hypoglycemia Standing Ord. Dextrose (D10) 250 mls @ 750 mls/hr IV Q15M PRN; Protocol PRN Reason: per Hypoglycemia Standing Ord. Metronidazole (Flagyl) 500 mg in 100 mls @ 100 mls/hr IV Q8H [facility] Last Infusion: 06/19/24 15:23 Dose: Infused Documented By: JOHNNIE Sodium Chloride (Ns) 1,000 mls @ 100 mls/hr IVCONT .Q10H [facility] Last Admin: 06/19/24 10:49 Dose: 100 mls/hr Documented By: JOHNNIE Insulin Human Lispro (Insulin Lispro 100 Unit/Ml 3 Ml Vial) 0 unit SUBCUT QIDACHS [facility]; Protocol Last Admin: 06/19/24 12:53 Dose: Not Given Documented By: JOHNNIE Non-Admin Reason: NPO Loratadine (Loratadine 10 Mg Tablet) 10 mg PO DAILY [facility] Last Admin: 06/19/24 07:54 Dose: 10 mg Documented By: JOHNNIE Magnesium Hydroxide (Milk Of Magnesia 30 Ml Oral.Susp) 30 ml PO DAILY PRN PRN Reason: Constipation Melatonin (Melatonin 3 Mg Tablet) 6 mg PO BEDTIME PRN PRN Reason: Insomnia Last Admin: 06/19/24 02:51 Dose: 6 mg Documented By: GUZMAN Morphine Sulfate (Morphine Sulfate 4 Mg/Ml Cartridge) 4 mg IVPUSH Q4H PRN; Protocol PRN Reason: Pain, Severe (Pain Scale 7-10) Last Admin: 06/19/24 15:18 Dose: 4 mg Documented By: JOHNNIE Ondansetron HCl (Ondansetron Hcl 4 Mg/2 Ml Vial) 4 mg IVPUSH Q8H PRN PRN Reason: Nausea and Vomiting Last Admin: 06/18/24 22:27 Dose: 4 mg Documented By: GUZMAN Oxycodone HCl (Oxycodone Hcl Immed Release 5 Mg Tablet) 5 mg PO Q6H PRN PRN Reason: Pain, Moderate(Pain Scale 4-6) Last Admin: 06/19/24 07:57 Dose: 5 mg Documented By: JOHNNIE Sodium Chloride (0.9 % Sodium Chloride Flush 3 Ml Syringe) [facility] Last Admin: 06/19/24 15:23 Dose: Not Given Documented By: JOHNNIE Non-Admin Reason: IV Running Sodium Chloride (Sodium Chloride 0.65 % Nasal 44 Ml Sprbtl) 1 spray NOSTRIL-B Q1H PRN PRN Reason: Dry Nasal Passages Tizanidine HCl (Tizanidine Hcl 4 Mg Tablet) 4 mg PO BEDTIME [facility] Last Admin: 06/18/24 22:27 Dose: 4 mg Documented By: GUZMAN Valacyclovir HCl (Valacyclovir Hcl 500 Mg Tablet) 500 mg PO DAILY [facility] Last Admin: 06/19/24 07:54 Dose: 500 mg Documented By: JOHNNIE Labs 06/19/24 06:53 06/19/24 06:53 Labs: Laboratory Results - last 24 hr 06/18/24 06/18/24 06/18/24 17:01 17:11 18:43 MCV 90.5 MCH 31.6 MCHC 34.9 RDW 12.0 Plt Count 325 MPV 9.8 Immature Gran % (Auto) 0.7 H Neut % (Auto) 83.7 H Lymph % (Auto) 9.2 L [place] % (Auto) 6.0 Eos % (Auto) 0.1 Baso % (Auto) 0.3 Lymph # (Auto) 1.6 [place] # (Auto) 1.0 Eos # (Auto) 0.0 Baso # (Auto) 0.1 Abs Immat Gran (auto) 0.12 H Absolute Neuts (auto) 14.5 H Absolute Nucleated RBC 0.000 Nucleated RBC % (auto) 0.0 ESR 8 PT 11.8 INR 1.0 Anion Gap 17 Estim Creat Clear Calc 77.6 Estimated GFR > 60 POC Glucose Random Glucose 304 H Lactic Acid 1.1 Calcium 8.9 D Magnesium 2.1 Total Bilirubin 0.8 AST 33 H ALT 27 Alkaline Phosphatase 65 C-Reactive Protein 0.28 Total Protein 7.9 Albumin 4.8 Lipase 13 Beta HCG, Quant < 2 Urine Color Yellow Urine Appearance Clear Urine pH 5.5 Ur Specific [place] >= 1.030 H Urine Protein 30 (1+) H Urine Glucose (UA) >=1000 H Urine Ketones >=160 Urine Blood Negative Urine Nitrite Negative Ur Leukocyte Esterase Negative Urine RBC 0-2 Urine WBC 0-5 Ur Squamous Epith Cells 3-5 Urine Bacteria None Seen Hyaline Casts 0-2 Stool Occult Blood Stl C. cayetanensis PCR Stool Rotavirus A PCR Stl Adenov F 40/41 PCR Stool Astrovirus (PCR) Stool Campylobacter PCR Stool Cryptosporidium PCR Stl Sh Tox Pr E STEC PCR Stool E coli O157 PCR Stl Enterotoxigenic E PCR Stool EPEC (PCR) Stool EAEC (PCR) Stl E. histolytica PCR Stool Giardia Lamblia PCR Stl P. shigelloides PCR Stool Salmonella PCR Stool Sapovirus (PCR) Stl Shigella/EIEC PCR St Y.enterocolitica PCR Stool Vibrio (PCR) Stl Vibrio cholerae PCR Stl Norovirus GI/GII PCR C. difficile Tox B Gene 06/18/24 06/19/24 06/19/24 20:27 00:35 06:04 MCV MCH MCHC RDW Plt Count MPV Immature Gran % (Auto) Neut % (Auto) Lymph % (Auto) [place] % (Auto) Eos % (Auto) Baso % (Auto) Lymph # (Auto) [place] # (Auto) Eos # (Auto) Baso # (Auto) Abs Immat Gran (auto) Absolute Neuts (auto) Absolute Nucleated RBC Nucleated RBC % (auto) ESR PT INR Anion Gap Estim Creat Clear Calc Estimated GFR POC Glucose 253 H 118 H 134 H Random Glucose Lactic Acid Calcium Magnesium Total Bilirubin AST ALT Alkaline Phosphatase C-Reactive Protein Total Protein Albumin Lipase Beta HCG, Quant Urine Color Urine Appearance Urine pH Ur Specific [place] Urine Protein Urine Glucose (UA) Urine Ketones Urine Blood Urine Nitrite Ur Leukocyte Esterase Urine RBC Urine WBC Ur Squamous Epith Cells Urine Bacteria Hyaline Casts Stool Occult Blood Stl C. cayetanensis PCR Stool Rotavirus A PCR Stl Adenov F 40/41 PCR Stool Astrovirus (PCR) Stool Campylobacter PCR Stool Cryptosporidium PCR Stl Sh Tox Pr E STEC PCR Stool E coli O157 PCR Stl Enterotoxigenic E PCR Stool EPEC (PCR) Stool EAEC (PCR) Stl E. histolytica PCR Stool Giardia Lamblia PCR Stl P. shigelloides PCR Stool Salmonella PCR Stool Sapovirus (PCR) Stl Shigella/EIEC PCR St Y.enterocolitica PCR Stool Vibrio (PCR) Stl Vibrio cholerae PCR Stl Norovirus GI/GII PCR C. difficile Tox B Gene 06/19/24 06/19/24 06/19/24 06:53 07:36 07:55 MCV 90.8 MCH 31.7 MCHC 34.9 RDW 11.9 Plt Count 250 MPV 9.5 Immature Gran % (Auto) 0.6 H Neut % (Auto) 61.2 Lymph % (Auto) 28.7 [place] % (Auto) 8.9 Eos % (Auto) 0.3 Baso % (Auto) 0.3 Lymph # (Auto) 3.2 [place] # (Auto) 1.0 Eos # (Auto) 0.0 Baso # (Auto) 0.0 Abs Immat Gran (auto) 0.07 H Absolute Neuts (auto) 6.9 Absolute Nucleated RBC 0.000 Nucleated RBC % (auto) 0.0 ESR PT INR Anion Gap 16 Estim Creat Clear Calc 100.6 Estimated GFR > 60 POC Glucose 148 H Random Glucose 136 H Lactic Acid Calcium 8.6 Magnesium Total Bilirubin AST ALT Alkaline Phosphatase C-Reactive Protein 0.38 Total Protein Albumin Lipase Beta HCG, Quant Urine Color Urine Appearance Urine pH Ur Specific [place] Urine Protein Urine Glucose (UA) Urine Ketones Urine Blood Urine Nitrite Ur Leukocyte Esterase Urine RBC Urine WBC Ur Squamous Epith Cells Urine Bacteria Hyaline Casts Stool Occult Blood NEGATIVE Stl C. cayetanensis PCR Not Detected Stool Rotavirus A PCR Not Detected Stl Adenov F 40/ PCR Not Detected Stool Astrovirus (PCR) Not Detected Stool Campylobacter PCR Not Detected Stool Cryptosporidium PCR Not Detected Stl Sh Tox Pr E STEC PCR Not Detected Stool E coli O157 PCR Not applicable Stl Enterotoxigenic E PCR Not Detected Stool EPEC (PCR) Not Detected Stool EAEC (PCR) Not Detected Stl E. histolytica PCR Not Detected Stool Giardia Lamblia PCR Not Detected Stl P. shigelloides PCR Not Detected Stool Salmonella PCR Not Detected Stool Sapovirus (PCR) Not Detected Stl Shigella/EIEC PCR Not Detected St Y.enterocolitica PCR Not Detected Stool Vibrio (PCR) Not Detected Stl Vibrio cholerae PCR Not Detected Stl Norovirus GI/GII PCR Not Detected C. difficile Tox B Gene NEGATIVE 06/19/24 11:21 MCV MCH MCHC RDW Plt Count MPV Immature Gran % (Auto) Neut % (Auto) Lymph % (Auto) [place] % (Auto) Eos % (Auto) Baso % (Auto) Lymph # (Auto) [place] # (Auto) Eos # (Auto) Baso # (Auto) Abs Immat Gran (auto) Absolute Neuts (auto) Absolute Nucleated RBC Nucleated RBC % (auto) ESR PT INR Anion Gap Estim Creat Clear Calc Estimated GFR POC Glucose 188 H Random Glucose Lactic Acid Calcium Magnesium Total Bilirubin AST ALT Alkaline Phosphatase C-Reactive Protein Total Protein Albumin Lipase Beta HCG, Quant Urine Color Urine Appearance Urine pH Ur Specific [place] Urine Protein Urine Glucose (UA) Urine Ketones Urine Blood Urine Nitrite Ur Leukocyte Esterase Urine RBC Urine WBC Ur Squamous Epith Cells Urine Bacteria Hyaline Casts Stool Occult Blood Stl C. cayetanensis PCR Stool Rotavirus A PCR Stl Adenov F 40 PCR Stool Astrovirus (PCR) Stool Campylobacter PCR Stool Cryptosporidium PCR Stl Sh Tox Pr E STEC PCR Stool E coli O157 PCR Stl Enterotoxigenic E PCR Stool EPEC (PCR) Stool EAEC (PCR) Stl E. histolytica PCR Stool Giardia Lamblia PCR Stl P. shigelloides PCR Stool Salmonella PCR Stool Sapovirus (PCR) Stl Shigella/EIEC PCR St Y.enterocolitica PCR Stool Vibrio (PCR) Stl Vibrio cholerae PCR Stl Norovirus GI/GII PCR C. difficile Tox B Gene Assessment and Plan (1) Nausea and vomiting: Status: Acute Plan d2 for 38yo F with DM2, HTN, FM, bipolar disorder presenting with N/V/abd pain/hematochezia x3d, found to have colitis N/V colitis with SIRS physiology - Cdiff + GI panel negative - continue ceftriaxone + metronidazole 06/18- - GI consulted, plan EGD + C-scope 06/22 - trial of clear liquids HTN - conitnue clonidine FM - continue tizanidine VTE ppx - SCDs dispo - eventual home In my clinical judgment, the patient requires continued inpatient hospitalization for the following reasons: endoscopic evaluation + IV ABX Total time managing care of this patient today: 35 minutes. Quality Stroke Does the patient have a stroke diagnosis?: No VTE Prior VTE?: No VTE Risk Level:: Medical - moderate - high VTE Device Contraindication: N/A - Device Ordered VTE Drug Contraindication: Treatment Not Indicated
[2024-06-19 16:33] LABS: Glucose, Whole Blood 267 mg/dL (60-115)
[2024-06-19] MEDS: Insulin Lispro 100 UNIT/ML 3 ML VIAL SUBCUT ×2 (17:55→21:06)
[2024-06-19] MEDS: cefTRIAXone sodium 1 GM VIAL IVPUSH (19:48)
[2024-06-19 20:34] LABS: Glucose, Whole Blood 227 mg/dL (60-115)
[2024-06-19] MEDS: Fluconazole 150 MG TABLET PO (21:05)
[2024-06-19] MEDS: TiZANidine HCL 4 MG TABLET PO (21:06)
[2024-06-20] MEDS: Morphine Sulfate 4 MG/ML CARTRIDGE IVPUSH ×5 (00:19→20:57)
[2024-06-20] MEDS: ondansetron HCL 4 MG/2 ML VIAL IVPUSH (02:39)
[2024-06-20 03:44] VITALS: BP 143/87; PULSE 65; RESP 15; TEMP 36.1; O2SAT 94
[2024-06-20] MEDS: 0.9 % Sodium Chloride 1,000 ML 100 ML IVCONT (04:39)
[2024-06-20] MEDS: metroNIDAZOLE/NS 500 MG/100 ML PIGGYBACK 100 MG IV ×3 (04:40→21:00)
[2024-06-20] MEDS: LORazepam 2 MG/ML VIAL 0.5 MG IVPUSH (06:36)
[2024-06-20 07:14] LABS: Hematocrit 41.4 % (37.0-47.0); Hemoglobin 14.4 g/dl (12.0-16.0); Mean Corpuscular HGB Conc 34.8 g/dl (31.0-35.0); Mean Corpuscular Hemoglobin 31.7 pg (27.0-33.0); Mean Corpuscular Volume 91.2 fL (80.0-98.0); Mean Platelet Volume 9.6 fL (9.4-12.3); Platelet Count 239 X10*3/uL (160-400); Red Blood Count 4.54 X10*6/uL (4.20-5.50); Red Cell Distribution Width 11.8 % (11.0-16.0); White Blood Count 8.4 X10*3/uL (4.8-10.8)
[2024-06-20 07:30] LABS: Anion Gap 12 (12-20); Blood Urea Nitrogen 7 mg/dL (9-16); Calcium 8.4 mg/dL (8.4-10.2); Carbon Dioxide 26 mmol/L (22-29); Chloride 102 mmol/L (96-108); Creatinine Clr Calc Pharmacy 105.1; Estimated Glomerular Filt Rate > 60; Glucose Random 235 mg/dL (60-115); Potassium 3.1 mmol/L (3.3-5.1); Sodium 137 mmol/L (135-145)
[2024-06-20 07:31] VITALS: BP 154/90; PULSE 67; RESP 18; TEMP 36.3; O2SAT 96
[2024-06-20 07:32] LABS: Glucose, Whole Blood 207 mg/dL (60-115)
[2024-06-20] MEDS: Insulin Lispro 100 UNIT/ML 3 ML VIAL SUBCUT ×4 (08:04→20:59)
[2024-06-20] MEDS: Loratadine 10 MG TABLET PO (08:04)
[2024-06-20] MEDS: cloNIDine HCL 0.1 MG TABLET PO ×3 (08:04→20:57)
[2024-06-20] MEDS: valACYclovir HCL 500 MG TABLET PO (08:04)
[2024-06-20] MEDS: Potassium Chloride Packet 20 MEQ PACKET 40 MEQ PO (08:05)
[2024-06-20 08:07] LABS: Magnesium 1.9 mg/dL (1.6-2.6)
[2024-06-20] MEDS: 0.9 % Sodium Chloride Flush 3 ML SYRINGE IVFLUSH ×3 (08:07→20:58)
[2024-06-20] MEDS: oxyCODONE HCl Immed Release 5 MG TABLET PO (08:13)
--- NOTE | 2024-06-20 11:05 | P.PNIM_ITS ---
Subjective Subjective Date of Service: 06/20/24 Interval History: abd pain improved nausea improved tolerating diet Review of Systems Review of Systems: Yes all other systems are reviewed and are negative Physical Exam 2 Vital Signs: Vital Signs: Last Vital Signs Temp 97.4 F 06/20/24 07:31 Pulse 67 06/20/24 07:31 Resp 18 06/20/24 07:31 BP 154/90 H 06/20/24 07:31 Pulse Ox 96 06/20/24 07:31 O2 Del Method Room Air 06/20/24 07:31 BMI result Body Mass Index 31.0 Gen: in no acute distress HEENT: sclera anicteric, moist mucus membranes Neck: supple Lungs: clear to auscultation bilaterally Heart: regular rate and rhythm, no murmurs Abd: soft, diffusely tender without rebound, non-distended Ext: no edema Skin: warm/well-perfused Neuro: alert and oriented x3, no focal findings Psych: appropriate affect Objective Data Active Medications Acetaminophen (Acetaminophen 325 Mg Tablet) 650 mg PO Q6H PRN PRN Reason: Pain, Mild (Pain Scale 1-3), fever or headache Calcium Carbonate (Calcium Carbonate 750 Mg Tab.Chew) 750 mg PO Q4H PRN PRN Reason: Heartburn Last Admin: 06/19/24 10:55 Dose: 750 mg Documented By: JOHNNIE Ceftriaxone Sodium (Ceftriaxone Sodium 1 Gm Vial) 1 gm IVPUSH Q24H [facility] Last Admin: 06/19/24 19:48 Dose: 1 gm Documented By: LASHELL Clonidine HCl (Clonidine Hcl 0.1 Mg Tablet) 0.1 mg PO TID [facility]; Protocol Last Admin: 06/20/24 08:04 Dose: 0.1 mg Documented By: KWAME Fluconazole (Fluconazole 150 Mg Tablet) 150 mg PO Q72H [facility] Stop: 06/22/24 19:01 Last Admin: 06/19/24 21:05 Dose: 150 mg Documented By: LASHELL Glucose (Glucose Gel 15 Gm Gel..Gram.) 15 gm PO Q15M PRN; Protocol PRN Reason: per Hypoglycemia Standing Ord. Dextrose (D10) 250 mls @ 750 mls/hr IV Q15M PRN; Protocol PRN Reason: per Hypoglycemia Standing Ord. Metronidazole (Flagyl) 500 mg in 100 mls @ 100 mls/hr IV Q8H [facility] Last Infusion: 06/20/24 05:40 Dose: Infused Documented By: LASHELL Sodium Chloride (Ns) 1,000 mls @ 100 mls/hr IVCONT .Q10H [facility] Last Admin: 06/20/24 04:39 Dose: 100 mls/hr Documented By: LASHELL Insulin Human Lispro (Insulin Lispro 100 Unit/Ml 3 Ml Vial) 0 unit SUBCUT QIDACHS [facility]; Protocol Last Admin: 06/20/24 08:04 Dose: 4 unit Documented By: KWAME Lidocaine (Lidocaine 4 % Patch Adh..Patch) 1 patch TRANSDERMA DAILY [facility]; Protocol Last Admin: 06/20/24 10:02 Dose: Not Given Documented By: KWAME Non-Admin Reason: Patient Refused Loratadine (Loratadine 10 Mg Tablet) 10 mg PO DAILY [facility] Last Admin: 06/20/24 08:04 Dose: 10 mg Documented By: KWAME Magnesium Hydroxide (Milk Of Magnesia 30 Ml Oral.Susp) 30 ml PO DAILY PRN PRN Reason: Constipation Melatonin (Melatonin 3 Mg Tablet) 6 mg PO BEDTIME PRN PRN Reason: Insomnia Last Admin: 06/19/24 23:02 Dose: 6 mg Documented By: LASHELL Morphine Sulfate (Morphine Sulfate 4 Mg/Ml Cartridge) 4 mg IVPUSH Q4H PRN; Protocol PRN Reason: Pain, Severe (Pain Scale 7-10) Last Admin: 06/20/24 10:22 Dose: 4 mg Documented By: KWAME Ondansetron HCl (Ondansetron Hcl 4 Mg/2 Ml Vial) 4 mg IVPUSH Q8H PRN PRN Reason: Nausea and Vomiting Last Admin: 06/20/24 02:39 Dose: 4 mg Documented By: LASHELL Oxycodone HCl (Oxycodone Hcl Immed Release 5 Mg Tablet) 5 mg PO Q6H PRN PRN Reason: Pain, Moderate(Pain Scale 4-6) Last Admin: 06/20/24 08:13 Dose: 5 mg Documented By: KWAME Polyethylene Glycol/Electrolytes (Peg 3350/Na Sulf,Bicarb,Cl/Kcl 4,000 Ml Soln.Recon) 4,000 ml PO ONCE ONE Stop: 06/21/24 17:01 Sodium Chloride (0.9 % Sodium Chloride Flush 3 Ml Syringe) 3 ml IVFLUSH QSHIFT [facility] Last Admin: 06/20/24 08:07 Dose: 3 ml Documented By: KWAME Sodium Chloride (Sodium Chloride 0.65 % Nasal 44 Ml Sprbtl) 1 spray NOSTRIL-B Q1H PRN PRN Reason: Dry Nasal Passages Tizanidine HCl (Tizanidine Hcl 4 Mg Tablet) 4 mg PO BEDTIME [facility] Last Admin: 06/19/24 21:06 Dose: 4 mg Documented By: LASHELL Valacyclovir HCl (Valacyclovir Hcl 500 Mg Tablet) 500 mg PO DAILY [facility] Last Admin: 06/20/24 08:04 Dose: 500 mg Documented By: KWAME Labs 06/20/24 06:55 06/20/24 06:55 Labs: Laboratory Results - last 24 hr 06/19/24 06/19/24 06/19/24 11:21 15:28 20:27 MCV MCH MCHC RDW Plt Count MPV Absolute Nucleated RBC Nucleated RBC % (auto) Anion Gap Estim Creat Clear Calc Estimated GFR POC Glucose 188 H 267 H 227 H Random Glucose Calcium Magnesium 06/20/24 06/20/24 06:55 07:12 MCV 91.2 MCH 31.7 MCHC 34.8 RDW 11.8 Plt Count 239 MPV 9.6 Absolute Nucleated RBC 0.000 Nucleated RBC % (auto) 0.0 Anion Gap 12 Estim Creat Clear Calc 105.1 Estimated GFR > 60 POC Glucose 207 H Random Glucose 235 H Calcium 8.4 Magnesium 1.9 Microbiology Microbiology Results: Microbiology 06/18/24 17:11 Blood Culture - Preliminary Blood - Venous No growth after 24 hours. 06/18/24 17:01 Blood Culture - Preliminary Blood - Venous No growth after 24 hours. Assessment and Plan (1) Nausea and vomiting: Status: Acute Plan d3 for 38yo F with DM2, HTN, FM, bipolar disorder presenting with N/V/abd pain/hematochezia x3d, found to have colitis N/V colitis with SIRS physiology - Cdiff + GI panel negative - continue ceftriaxone + metronidazole 06/18- - GI consulted, plan EGD + C-scope 06/22 - tolerating diet; clears tomorrow the NPO 06/22 for scopes hypoK - replete, recheck BMP in AM HTN - continue clonidine FM - continue tizanidine VTE ppx - SCDs, no heparin due to hematochezia dispo - eventual home In my clinical judgment, the patient requires continued inpatient hospitalization for the following reasons: endoscopic evaluation + IV ABX Total time managing care of this patient today: 35 minutes. Quality Stroke Does the patient have a stroke diagnosis?: No VTE Prior VTE?: No VTE Risk Level:: Medical - moderate - high VTE Device Contraindication: N/A - Device Ordered VTE Drug Contraindication: Treatment Not Indicated
[2024-06-20 11:11] LABS: Glucose, Whole Blood 181 mg/dL (60-115)
[2024-06-20 11:19] VITALS: BP 159/83; PULSE 66; RESP 20; TEMP 36.3; O2SAT 94
[2024-06-20 16:00] VITALS: BP 132/74; PULSE 97; RESP 18; TEMP 36.3; O2SAT 97
[2024-06-20] MEDS: cefTRIAXone sodium 1 GM VIAL IVPUSH (18:46)
[2024-06-20 20:00] VITALS: BP 156/88; PULSE 67; RESP 18; TEMP 36.4; O2SAT 97
[2024-06-20 20:53] LABS: Glucose, Whole Blood 279 mg/dL (60-115)
[2024-06-20 20:53] LABS: Glucose, Whole Blood 258 mg/dL (60-115)
[2024-06-20] MEDS: Melatonin 3 MG TABLET 6 MG PO (20:57)
[2024-06-20] MEDS: TiZANidine HCL 4 MG TABLET PO (20:58)
[2024-06-20 23:32] VITALS: BP 150/90; PULSE 74; RESP 18; TEMP 36.8; O2SAT 97
[2024-06-21] MEDS: Morphine Sulfate 4 MG/ML CARTRIDGE IVPUSH ×4 (03:27→20:35)
[2024-06-21] MEDS: metroNIDAZOLE/NS 500 MG/100 ML PIGGYBACK 100 MG IV ×3 (03:28→20:57)
[2024-06-21 04:00] VITALS: BP 147/88; PULSE 70; RESP 18; TEMP 36.6; O2SAT 97
[2024-06-21] MEDS: LORazepam 0.5 MG TABLET PO (06:28)
[2024-06-21 07:13] LABS: Glucose, Whole Blood 306 mg/dL (60-115)
[2024-06-21 07:14] LABS: Anion Gap 14 (12-20); Blood Urea Nitrogen 7 mg/dL (9-16); C Reactive Protein 0.14 mg/dL (< or = 0.50); Calcium 8.7 mg/dL (8.4-10.2); Carbon Dioxide 26 mmol/L (22-29); Chloride 99 mmol/L (96-108); Creatinine Clr Calc Pharmacy 87.3; Estimated Glomerular Filt Rate > 60; Glucose Random 338 mg/dL (60-115); Sodium 136 mmol/L (135-145)
[2024-06-21 07:25] VITALS: BP 150/89; PULSE 66; RESP 20; TEMP 37.1; O2SAT 94
[2024-06-21 07:52] LABS: Estimated Average Glucose 240 mg/dL; Hemoglobin A1C 314.3172 umol/L
[2024-06-21] MEDS: Loratadine 10 MG TABLET PO (07:57)
[2024-06-21] MEDS: Insulin Lispro 100 UNIT/ML 3 ML VIAL SUBCUT ×3 (07:57→16:37)
[2024-06-21] MEDS: Lidocaine 4 % Patch ADH..PATCH 1 PATCH TRANSDERMA (07:58)
[2024-06-21] MEDS: 0.9 % Sodium Chloride Flush 3 ML SYRINGE IVFLUSH ×3 (08:02→20:36)
[2024-06-21] MEDS: cloNIDine HCL 0.1 MG TABLET PO ×3 (08:02→20:36)
[2024-06-21] MEDS: valACYclovir HCL 500 MG TABLET PO (08:02)
[2024-06-21] MEDS: Potassium Chloride Packet 20 MEQ PACKET 40 MEQ PO (10:16)
--- NOTE | 2024-06-21 11:00 | HO.PM.IMPN ---
Subjective Subjective Date of Service: 06/21/24 Interval History: abd pain improved, nausea improved no diarrhea Review of Systems Review of Systems: Yes all other systems are reviewed and are negative Physical Exam Vital Signs: Vital Signs: Last Vital Signs Temp 98.7 F 06/21/24 07:25 Pulse 66 06/21/24 07:25 Resp 20 06/21/24 07:25 BP 150/89 H 06/21/24 07:25 Pulse Ox 94 06/21/24 07:25 O2 Del Method Room Air 06/21/24 07:25 BMI result Body Mass Index 31.0 Gen: in no acute distress HEENT: sclera anicteric, moist mucus membranes Neck: supple Lungs: clear to auscultation bilaterally Heart: regular rate and rhythm, no murmurs Abd: soft, minimally tender, non-distended Ext: no edema Skin: warm/well-perfused Neuro: alert and oriented x3, no focal findings Psych: appropriate affect Objective Data Active Medications Acetaminophen (Acetaminophen 325 Mg Tablet) 650 mg PO Q6H PRN PRN Reason: Pain, Mild (Pain Scale 1-3), fever or headache Calcium Carbonate (Calcium Carbonate 750 Mg Tab.Chew) 750 mg PO Q4H PRN PRN Reason: Heartburn Last Admin: 06/19/24 10:55 Dose: 750 mg Documented By: JOHNNIE Ceftriaxone Sodium (Ceftriaxone Sodium 1 Gm Vial) 1 gm IVPUSH Q24H [facility] Last Admin: 06/20/24 18:46 Dose: 1 gm Documented By: KWAME Clonidine HCl (Clonidine Hcl 0.1 Mg Tablet) 0.1 mg PO TID [facility]; Protocol Last Admin: 06/21/24 08:02 Dose: 0.1 mg Documented By: KWAME Fluconazole (Fluconazole 150 Mg Tablet) 150 mg PO Q72H [facility] Stop: 06/22/24 19:01 Last Admin: 06/19/24 21:05 Dose: 150 mg Documented By: LASHELL Glucose (Glucose Gel 15 Gm Gel..Gram.) 15 gm PO Q15M PRN; Protocol PRN Reason: per Hypoglycemia Standing Ord. Dextrose (D10) 250 mls @ 750 mls/hr IV Q15M PRN; Protocol PRN Reason: per Hypoglycemia Standing Ord. Metronidazole (Flagyl) 500 mg in 100 mls @ 100 mls/hr IV Q8H [facility] Last Infusion: 06/21/24 05:17 Dose: Infused Documented By: GREGORIO Insulin Human Lispro (Insulin Lispro 100 Unit/Ml 3 Ml Vial) 0 unit SUBCUT QIDACHS [facility]; Protocol Last Admin: 06/21/24 07:57 Dose: 12 unit Documented By: KWAME Lidocaine (Lidocaine 4 % Patch Adh..Patch) 1 patch TRANSDERMA DAILY [facility]; Protocol Last Admin: 06/21/24 07:58 Dose: 1 patch Documented By: KWAME Loratadine (Loratadine 10 Mg Tablet) 10 mg PO DAILY [facility] Last Admin: 06/21/24 07:57 Dose: 10 mg Documented By: KWAME Magnesium Hydroxide (Milk Of Magnesia 30 Ml Oral.Susp) 30 ml PO DAILY PRN PRN Reason: Constipation Melatonin (Melatonin 3 Mg Tablet) 6 mg PO BEDTIME PRN PRN Reason: Insomnia Last Admin: 06/20/24 20:57 Dose: 6 mg Documented By: GREGORIO Morphine Sulfate (Morphine Sulfate 4 Mg/Ml Cartridge) 4 mg IVPUSH Q4H PRN; Protocol PRN Reason: Pain, Severe (Pain Scale 7-10) Last Admin: 06/21/24 08:05 Dose: 4 mg Documented By: KWAME Ondansetron HCl (Ondansetron Hcl 4 Mg/2 Ml Vial) 4 mg IVPUSH Q8H PRN PRN Reason: Nausea and Vomiting Last Admin: 06/20/24 02:39 Dose: 4 mg Documented By: LASHELL Oxycodone HCl (Oxycodone Hcl Immed Release 5 Mg Tablet) 5 mg PO Q6H PRN PRN Reason: Pain, Moderate(Pain Scale 4-6) Last Admin: 06/20/24 08:13 Dose: 5 mg Documented By: KWAME Polyethylene Glycol/Electrolytes (Peg 3350/Na Sulf,Bicarb,Cl/Kcl 4,000 Ml Soln.Recon) 4,000 ml PO ONCE ONE Stop: 06/21/24 17:01 Sodium Chloride (0.9 % Sodium Chloride Flush 3 Ml Syringe) [facility] Last Admin: 06/21/24 08:02 Dose: 3 ml Documented By: KWAME Sodium Chloride (Sodium Chloride 0.65 % Nasal 44 Ml Sprbtl) 1 spray NOSTRIL-B Q1H PRN PRN Reason: Dry Nasal Passages Tizanidine HCl (Tizanidine Hcl 4 Mg Tablet) 4 mg PO BEDTIME [facility] Last Admin: 06/20/24 20:58 Dose: 4 mg Documented By: GREGORIO Valacyclovir HCl (Valacyclovir Hcl 500 Mg Tablet) 500 mg PO DAILY [facility] Last Admin: 06/21/24 08:02 Dose: 500 mg Documented By: KWAME Labs 06/20/24 06:55 06/21/24 06:33 Labs: Laboratory Results - last 24 hr 06/20/24 06/20/24 06/20/24 06:55 11:07 16:01 Anion Gap Estim Creat Clear Calc Estimated GFR POC Glucose 181 H 258 H Random Glucose Estimat Average Glucose 240 Hemoglobin A1c % 10.0 H Calcium C-Reactive Protein 06/20/24 06/21/24 06/21/24 20:49 06:33 07:08 Anion Gap 14 Estim Creat Clear Calc 87.3 Estimated GFR > 60 POC Glucose 279 H 306 H Random Glucose 338 H Estimat Average Glucose Hemoglobin A1c % Calcium 8.7 C-Reactive Protein 0.14 Microbiology Microbiology Results: Microbiology 06/18/24 17:11 Blood Culture - Preliminary Blood - Venous No growth after 48 hours. 06/18/24 17:01 Blood Culture - Preliminary Blood - Venous No growth after 48 hours. Assessment and Plan (1) Nausea and vomiting: Status: Acute Plan d4 for 38yo F with DM2, HTN, FM, bipolar disorder presenting with N/V/abd pain/hematochezia x3d, found to have colitis N/V colitis with SIRS physiology - Cdiff + GI panel negative - continue ceftriaxone + metronidazole 06/18- - GI consulted, plan EGD + C-scope 06/22 - tolerating diet; clears today then NPO 06/22 for scopes hypoK - replete, recheck BMP in AM HTN - continue clonidine FM - continue tizanidine DM2 - A1c 10. Needs oral hypoglycemics or Lantus upon discharge. Correction-dose lispro while here. VTE ppx - SCDs, no heparin due to hematochezia dispo - eventual home In my clinical judgment, the patient requires continued inpatient hospitalization for the following reasons: endoscopic evaluation + IV ABX Total time managing care of this patient today: 35 minutes. Quality Stroke Does the patient have a stroke diagnosis?: No VTE Prior VTE?: No VTE Risk Level:: Medical - moderate - high VTE Device Contraindication: N/A - Device Ordered VTE Drug Contraindication: Treatment Not Indicated
[2024-06-21] MEDS: oxyCODONE HCl Immed Release 5 MG TABLET PO ×2 (11:15→23:02)
[2024-06-21 11:26] VITALS: BP 159/93; PULSE 83; RESP 18; TEMP 36.6; O2SAT 97
[2024-06-21 11:50] LABS: Glucose, Whole Blood 157 mg/dL (60-115)
[2024-06-21 15:40] VITALS: BP 159/92; PULSE 68; RESP 20; TEMP 36.6; O2SAT 96
[2024-06-21 16:28] LABS: Glucose, Whole Blood 314 mg/dL (60-115)
[2024-06-21] MEDS: PEG 3350/Na Sulf,Bicarb,Cl/KCL 4,000 ML SOLN.RECON 4000 ML PO (16:42)
[2024-06-21] MEDS: cefTRIAXone sodium 1 GM VIAL IVPUSH (18:18)
[2024-06-21 19:11] VITALS: BP 158/92; PULSE 70; RESP 20; TEMP 36.3; O2SAT 99
[2024-06-21 20:32] LABS: Glucose, Whole Blood 126 mg/dL (60-115)
[2024-06-21] MEDS: ondansetron HCL 4 MG/2 ML VIAL IVPUSH (20:35)
[2024-06-21] MEDS: TiZANidine HCL 4 MG TABLET PO (20:36)
[2024-06-21 22:50] VITALS: BP 120/78; PULSE 70; RESP 18; TEMP 36.3; O2SAT 98
[2024-06-21] MEDS: Melatonin 3 MG TABLET 6 MG PO (23:02)
[2024-06-22] VITALS (12 sets, daily range): BP systolic 134–169; BP diastolic 77–99; PULSE 59–76; RESP 14–19; TEMP 36.1–36.6; O2SAT 93–97
[2024-06-22] MEDS: Morphine Sulfate 4 MG/ML CARTRIDGE IVPUSH ×4 (00:41→13:09)
[2024-06-22] MEDS: metroNIDAZOLE/NS 500 MG/100 ML PIGGYBACK 100 MG IV (04:57)
[2024-06-22 07:06] LABS: Anion Gap 14 (12-20); Blood Urea Nitrogen 4 mg/dL (9-16); Calcium 8.5 mg/dL (8.4-10.2); Carbon Dioxide 26 mmol/L (22-29); Chloride 102 mmol/L (96-108); Creatinine Clr Calc Pharmacy 108.2; Estimated Glomerular Filt Rate > 60; Glucose Random 169 mg/dL (60-115); Sodium 139 mmol/L (135-145)
[2024-06-22 07:27] LABS: Potassium 2.8 mmol/L (3.3-5.1)
[2024-06-22 07:36] LABS: Glucose, Whole Blood 158 mg/dL (60-115)
[2024-06-22] MEDS: cloNIDine HCL 0.1 MG TABLET PO ×2 (08:10→14:14)
[2024-06-22] MEDS: valACYclovir HCL 500 MG TABLET PO (08:10)
[2024-06-22] MEDS: Loratadine 10 MG TABLET PO (08:10)
[2024-06-22] MEDS: Lidocaine 4 % Patch ADH..PATCH 1 PATCH TRANSDERMA (08:10)
[2024-06-22] MEDS: oxyCODONE HCl Immed Release 5 MG TABLET PO (08:10)
[2024-06-22] MEDS: Potassium Chloride/H20 10 MEQ/100 ML PIGGYBACK 100 MEQ IV ×4 (08:11→14:08)
[2024-06-22] MEDS: 0.9 % Sodium Chloride Flush 3 ML SYRINGE IVFLUSH (08:11)
--- NOTE | 2024-06-22 08:14 | P.CONAN_ITS ---
[facility] Active Problems Active Problems: All Active Problems Intractable nausea and vomiting (Acute) Chronic idiopathic constipation (Acute) Facial infection (Acute) Family history of Crohn's disease (Acute) Early satiety (Acute) Nausea and vomiting (Acute) Abdominal pain (Acute) Diarrhea (Acute) Diabetes (Acute) Nipple pain (Acute) External hemorrhoids (Acute) Breast pain, right (Acute) Bipolar 2 disorder (Acute) Past Medical History Medical History Diabetes Fibromyalgia Elevated cholesterol HTN (hypertension) Nipple pain External hemorrhoids Breast pain, right Bipolar 2 disorder Functional capacity: independent ambulation Patient : No Family History Family History Maternal Uncle Kidney cancer Maternal Grandfather Bladder cancer Family history of problems with anesthesia: No Surgical History Surgical History History of incision and drainage (10/05/22) History of lymph node excision History of carpal tunnel release of both wrists History of appendectomy History of cholecystectomy History of tonsillectomy History of Problems with Anesthesia: No Social History Social History Household Members: Family Housing: House Do you presently have visiting nurse or other home services: No Alcohol intake: never Patient Tobacco Use Status: Current everyday Tobacco user Tobacco use type: Cigarette Cigarette Packs Per Day: 0.5 Cigarettes Per Day: 10.0 Years Smoked: sine age 12 e-Cigarette/Vaping Use: Never Used Second Hand Smoke Exposure: Yes Substance Use Type: Marijuana service: No Sexual orientation: Don't Know Meds Allergies Allergy/AdvReac Type Severity Reaction Status Date / Time Sulfa (Sulfonamide Allergy Unknown RASH Verified 06/18/24 15:54 Antibiotics) [SULFA (SULFONAMIDE ANTIBIOTICS)] Active Medications: Current Medications Acetaminophen (Acetaminophen 325 Mg Tablet) 650 mg PO Q6H PRN PRN Reason: Pain, Mild (Pain Scale 1-3), fever or headache Calcium Carbonate (Calcium Carbonate 750 Mg Tab.Chew) 750 mg PO Q4H PRN PRN Reason: Heartburn Last Admin: 06/19/24 10:55 Dose: 750 mg Ceftriaxone Sodium (Ceftriaxone Sodium 1 Gm Vial) 1 gm IVPUSH Q24H [facility] Last Admin: 06/21/24 18:18 Dose: 1 gm Clonidine HCl (Clonidine Hcl 0.1 Mg Tablet) 0.1 mg PO TID [facility]; Protocol Last Admin: 06/21/24 20:36 Dose: 0.1 mg Fluconazole (Fluconazole 150 Mg Tablet) 150 mg PO Q72H [facility] Stop: 06/22/24 19:01 Last Admin: 06/19/24 21:05 Dose: 150 mg Glucose (Glucose Gel 15 Gm Gel..Gram.) 15 gm PO Q15M PRN; Protocol PRN Reason: per Hypoglycemia Standing Ord. Dextrose (D10) 250 mls @ 750 mls/hr IV Q15M PRN; Protocol PRN Reason: per Hypoglycemia Standing Ord. Metronidazole (Flagyl) 500 mg in 100 mls @ 100 mls/hr IV Q8H [facility] Last Infusion: 06/22/24 07:08 Dose: Infused Potassium Chloride (Potassium Chloride/H20) 10 meq in 100 mls @ 100 mls/hr IV Q1H [facility] Stop: 06/22/24 11:44 Insulin Human Lispro (Insulin Lispro 100 Unit/Ml 3 Ml Vial) 0 unit SUBCUT QIDACHS [facility]; Protocol Last Admin: 06/22/24 08:07 Dose: Not Given Lidocaine (Lidocaine 4 % Patch Adh..Patch) 1 patch TRANSDERMA DAILY [facility]; Protocol Last Admin: 06/21/24 07:58 Dose: 1 patch Loratadine (Loratadine 10 Mg Tablet) 10 mg PO DAILY [facility] Last Admin: 06/21/24 07:57 Dose: 10 mg Magnesium Hydroxide (Milk Of Magnesia 30 Ml Oral.Susp) 30 ml PO DAILY PRN PRN Reason: Constipation Melatonin (Melatonin 3 Mg Tablet) 6 mg PO BEDTIME PRN PRN Reason: Insomnia Last Admin: 06/21/24 23:02 Dose: 6 mg Morphine Sulfate (Morphine Sulfate 4 Mg/Ml Cartridge) 4 mg IVPUSH Q4H PRN; Protocol PRN Reason: Pain, Severe (Pain Scale 7-10) Last Admin: 06/22/24 04:57 Dose: 4 mg Ondansetron HCl (Ondansetron Hcl 4 Mg/2 Ml Vial) 4 mg IVPUSH Q8H PRN PRN Reason: Nausea and Vomiting Last Admin: 06/21/24 20:35 Dose: 4 mg Oxycodone HCl (Oxycodone Hcl Immed Release 5 Mg Tablet) 5 mg PO Q6H PRN PRN Reason: Pain, Moderate(Pain Scale 4-6) Last Admin: 06/21/24 23:02 Dose: 5 mg Sodium Chloride (0.9 % Sodium Chloride Flush 3 Ml Syringe) 3 ml IVFLUSH QSHIFT [facility] Last Admin: 06/21/24 20:36 Dose: 3 ml Sodium Chloride (Sodium Chloride 0.65 % Nasal 44 Ml Sprbtl) 1 spray NOSTRIL-B Q1H PRN PRN Reason: Dry Nasal Passages Tizanidine HCl (Tizanidine Hcl 4 Mg Tablet) 4 mg PO BEDTIME [facility] Last Admin: 06/21/24 20:36 Dose: 4 mg Valacyclovir HCl (Valacyclovir Hcl 500 Mg Tablet) 500 mg PO DAILY [facility] Last Admin: 06/21/24 08:02 Dose: 500 mg Home Medications ?Medication ?Instructions ?Recorded ?Confirmed ?Last Taken ?Type cetirizine 10 mg tablet 10 mg PO DAILY 05/02/22 06/18/24 06/17/24 History clonidine HCl 0.1 mg tablet 0.1 mg PO TID 05/02/22 06/18/24 06/17/24 History valacyclovir 500 mg tablet 500 mg PO DAILY 10/05/22 06/18/24 06/17/24 History tizanidine 4 mg tablet 4 mg PO BEDTIME 10/01/23 06/18/24 06/17/24 History ibuprofen 800 mg tablet 800 mg PO TID PRN Pain 06/18/24 06/18/24 06/17/24 History Exam Height,Weight and Vital Signs: Height 5 ft 2 in Weight 76.9 kg Last Vital Signs Temp 97.9 F 06/22/24 07:43 Pulse 60 06/22/24 07:43 Resp 19 06/22/24 07:43 BP 145/81 H 06/22/24 07:43 Pulse Ox 93 06/22/24 07:43 O2 Del Method Room Air 06/22/24 07:43 Pertinent Lab Results Pertinent Lab Results: Laboratory Tests 06/18/24 06/18/24 06/18/24 17:01 17:11 18:43 WBC 17.3 H RBC 5.06 Hgb 16.0 Hct 45.8 MCV 90.5 MCH 31.6 MCHC 34.9 RDW 12.0 Plt Count 325 MPV 9.8 Immature Gran % (Auto) 0.7 H Neut % (Auto) 83.7 H Lymph % (Auto) 9.2 L [place] % (Auto) 6.0 Eos % (Auto) 0.1 Baso % (Auto) 0.3 Lymph # (Auto) 1.6 [place] # (Auto) 1.0 Eos # (Auto) 0.0 Baso # (Auto) 0.1 Abs Immat Gran (auto) 0.12 H Absolute Neuts (auto) 14.5 H Absolute Nucleated RBC 0.000 Nucleated RBC % (auto) 0.0 ESR 8 PT 11.8 INR 1.0 Sodium 138 Potassium 3.4 Chloride 102 Carbon Dioxide 22 Anion Gap 17 BUN 18 H Creatinine 0.95 Estim Creat Clear Calc 77.6 Estimated GFR > 60 POC Glucose Random Glucose 304 H Estimat Average Glucose Hemoglobin A1c % Lactic Acid 1.1 Calcium 8.9 D Magnesium 2.1 Total Bilirubin 0.8 AST 33 H ALT 27 Alkaline Phosphatase 65 C-Reactive Protein 0.28 Total Protein 7.9 Albumin 4.8 Lipase 13 Beta HCG, Quant < 2 Urine Color Yellow Urine Appearance Clear Urine pH 5.5 Ur Specific [place] >= 1.030 H Urine Protein 30 (1+) H Urine Glucose (UA) >=1000 H Urine Ketones >=160 Urine Blood Negative Urine Nitrite Negative Ur Leukocyte Esterase Negative Urine RBC 0-2 Urine WBC 0-5 Ur Squamous Epith Cells 3-5 Urine Bacteria None Seen Hyaline Casts 0-2 Stool Occult Blood Stl C. cayetanensis PCR Stool Rotavirus A PCR Stl Adenov F 40/ PCR Stool Astrovirus (PCR) Stool Campylobacter PCR Stool Cryptosporidium PCR Stl Sh Tox Pr E STEC PCR Stool E coli O157 PCR Stl Enterotoxigenic E PCR Stool EPEC (PCR) Stool EAEC (PCR) Stl E. histolytica PCR Stool Giardia Lamblia PCR Stl P. shigelloides PCR Stool Salmonella PCR Stool Sapovirus (PCR) Stl Shigella/EIEC PCR St Y.enterocolitica PCR Stool Vibrio (PCR) Stl Vibrio cholerae PCR Stl Norovirus GI/GII PCR C. difficile Tox B Gene 06/18/24 06/19/24 06/19/24 20:27 00:35 06:04 WBC RBC Hgb Hct MCV MCH MCHC RDW Plt Count MPV Immature Gran % (Auto) Neut % (Auto) Lymph % (Auto) [place] % (Auto) Eos % (Auto) Baso % (Auto) Lymph # (Auto) [place] # (Auto) Eos # (Auto) Baso # (Auto) Abs Immat Gran (auto) Absolute Neuts (auto) Absolute Nucleated RBC Nucleated RBC % (auto) ESR PT INR Sodium Potassium Chloride Carbon Dioxide Anion Gap BUN Creatinine Estim Creat Clear Calc Estimated GFR POC Glucose 253 H 118 H 134 H Random Glucose Estimat Average Glucose Hemoglobin A1c % Lactic Acid Calcium Magnesium Total Bilirubin AST ALT Alkaline Phosphatase C-Reactive Protein Total Protein Albumin Lipase Beta HCG, Quant Urine Color Urine Appearance Urine pH Ur Specific [place] Urine Protein Urine Glucose (UA) Urine Ketones Urine Blood Urine Nitrite Ur Leukocyte Esterase Urine RBC Urine WBC Ur Squamous Epith Cells Urine Bacteria Hyaline Casts Stool Occult Blood Stl C. cayetanensis PCR Stool Rotavirus A PCR Stl Adenov F 40 PCR Stool Astrovirus (PCR) Stool Campylobacter PCR Stool Cryptosporidium PCR Stl Sh Tox Pr E STEC PCR Stool E coli O157 PCR Stl Enterotoxigenic E PCR Stool EPEC (PCR) Stool EAEC (PCR) Stl E. histolytica PCR Stool Giardia Lamblia PCR Stl P. shigelloides PCR Stool Salmonella PCR Stool Sapovirus (PCR) Stl Shigella/EIEC PCR St Y.enterocolitica PCR Stool Vibrio (PCR) Stl Vibrio cholerae PCR Stl Norovirus GI/GII PCR C. difficile Tox B Gene 06/19/24 06/19/24 06/19/24 06:53 07:36 07:55 WBC 11.2 H RBC 4.67 Hgb 14.8 Hct 42.4 MCV 90.8 MCH 31.7 MCHC 34.9 RDW 11.9 Plt Count 250 MPV 9.5 Immature Gran % (Auto) 0.6 H Neut % (Auto) 61.2 Lymph % (Auto) 28.7 [place] % (Auto) 8.9 Eos % (Auto) 0.3 Baso % (Auto) 0.3 Lymph # (Auto) 3.2 [place] # (Auto) 1.0 Eos # (Auto) 0.0 Baso # (Auto) 0.0 Abs Immat Gran (auto) 0.07 H Absolute Neuts (auto) 6.9 Absolute Nucleated RBC 0.000 Nucleated RBC % (auto) 0.0 ESR PT INR Sodium 137 Potassium 3.1 L Chloride 103 Carbon Dioxide 21 L Anion Gap 16 BUN 11 Creatinine 0.72 Estim Creat Clear Calc 100.6 Estimated GFR > 60 POC Glucose 148 H Random Glucose 136 H Estimat Average Glucose Hemoglobin A1c % Lactic Acid Calcium 8.6 Magnesium Total Bilirubin AST ALT Alkaline Phosphatase C-Reactive Protein 0.38 Total Protein Albumin Lipase Beta HCG, Quant Urine Color Urine Appearance Urine pH Ur Specific [place] Urine Protein Urine Glucose (UA) Urine Ketones Urine Blood Urine Nitrite Ur Leukocyte Esterase Urine RBC Urine WBC Ur Squamous Epith Cells Urine Bacteria Hyaline Casts Stool Occult Blood NEGATIVE Stl C. cayetanensis PCR Not Detected Stool Rotavirus A PCR Not Detected Stl Adenov F 40/41 PCR Not Detected Stool Astrovirus (PCR) Not Detected Stool Campylobacter PCR Not Detected Stool Cryptosporidium PCR Not Detected Stl Sh Tox Pr E STEC PCR Not Detected Stool E coli O157 PCR Not applicable Stl Enterotoxigenic E PCR Not Detected Stool EPEC (PCR) Not Detected Stool EAEC (PCR) Not Detected Stl E. histolytica PCR Not Detected Stool Giardia Lamblia PCR Not Detected Stl P. shigelloides PCR Not Detected Stool Salmonella PCR Not Detected Stool Sapovirus (PCR) Not Detected Stl Shigella/EIEC PCR Not Detected St Y.enterocolitica PCR Not Detected Stool Vibrio (PCR) Not Detected Stl Vibrio cholerae PCR Not Detected Stl Norovirus GI/GII PCR Not Detected C. difficile Tox B Gene NEGATIVE 06/19/24 06/19/24 06/19/24 11:21 15:28 20:27 WBC RBC Hgb Hct MCV MCH MCHC RDW Plt Count MPV Immature Gran % (Auto) Neut % (Auto) Lymph % (Auto) [place] % (Auto) Eos % (Auto) Baso % (Auto) Lymph # (Auto) [place] # (Auto) Eos # (Auto) Baso # (Auto) Abs Immat Gran (auto) Absolute Neuts (auto) Absolute Nucleated RBC Nucleated RBC % (auto) ESR PT INR Sodium Potassium Chloride Carbon Dioxide Anion Gap BUN Creatinine Estim Creat Clear Calc Estimated GFR POC Glucose 188 H 267 H 227 H Random Glucose Estimat Average Glucose Hemoglobin A1c % Lactic Acid Calcium Magnesium Total Bilirubin AST ALT Alkaline Phosphatase C-Reactive Protein Total Protein Albumin Lipase Beta HCG, Quant Urine Color Urine Appearance Urine pH Ur Specific [place] Urine Protein Urine Glucose (UA) Urine Ketones Urine Blood Urine Nitrite Ur Leukocyte Esterase Urine RBC Urine WBC Ur Squamous Epith Cells Urine Bacteria Hyaline Casts Stool Occult Blood Stl C. cayetanensis PCR Stool Rotavirus A PCR Stl Adenov F PCR Stool Astrovirus (PCR) Stool Campylobacter PCR Stool Cryptosporidium PCR Stl Sh Tox Pr E STEC PCR Stool E coli O157 PCR Stl Enterotoxigenic E PCR Stool EPEC (PCR) Stool EAEC (PCR) Stl E. histolytica PCR Stool Giardia Lamblia PCR Stl P. shigelloides PCR Stool Salmonella PCR Stool Sapovirus (PCR) Stl Shigella/EIEC PCR St Y.enterocolitica PCR Stool Vibrio (PCR) Stl Vibrio cholerae PCR Stl Norovirus GI/GII PCR C. difficile Tox B Gene 06/20/24 06/20/24 06/20/24 06:55 07:12 11:07 WBC 8.4 RBC 4.54 Hgb 14.4 Hct 41.4 MCV 91.2 MCH 31.7 MCHC 34.8 RDW 11.8 Plt Count 239 MPV 9.6 Immature Gran % (Auto) Neut % (Auto) Lymph % (Auto) [place] % (Auto) Eos % (Auto) Baso % (Auto) Lymph # (Auto) [place] # (Auto) Eos # (Auto) Baso # (Auto) Abs Immat Gran (auto) Absolute Neuts (auto) Absolute Nucleated RBC 0.000 Nucleated RBC % (auto) 0.0 ESR PT INR Sodium 137 Potassium 3.1 L Chloride 102 Carbon Dioxide 26 Anion Gap 12 BUN 7 L Creatinine 0.69 Estim Creat Clear Calc 105.1 Estimated GFR > 60 POC Glucose 207 H 181 H Random Glucose 235 H Estimat Average Glucose 240 Hemoglobin A1c % 10.0 H Lactic Acid Calcium 8.4 Magnesium 1.9 Total Bilirubin AST ALT Alkaline Phosphatase C-Reactive Protein Total Protein Albumin Lipase Beta HCG, Quant Urine Color Urine Appearance Urine pH Ur Specific [place] Urine Protein Urine Glucose (UA) Urine Ketones Urine Blood Urine Nitrite Ur Leukocyte Esterase Urine RBC Urine WBC Ur Squamous Epith Cells Urine Bacteria Hyaline Casts Stool Occult Blood Stl C. cayetanensis PCR Stool Rotavirus A PCR Stl Adenov F PCR Stool Astrovirus (PCR) Stool Campylobacter PCR Stool Cryptosporidium PCR Stl Sh Tox Pr E STEC PCR Stool E coli O157 PCR Stl Enterotoxigenic E PCR Stool EPEC (PCR) Stool EAEC (PCR) Stl E. histolytica PCR Stool Giardia Lamblia PCR Stl P. shigelloides PCR Stool Salmonella PCR Stool Sapovirus (PCR) Stl Shigella/EIEC PCR St Y.enterocolitica PCR Stool Vibrio (PCR) Stl Vibrio cholerae PCR Stl Norovirus GI/GII PCR C. difficile Tox B Gene 06/20/24 06/20/24 06/21/24 16:01 20:49 06:33 WBC RBC Hgb Hct MCV MCH MCHC RDW Plt Count MPV Immature Gran % (Auto) Neut % (Auto) Lymph % (Auto) [place] % (Auto) Eos % (Auto) Baso % (Auto) Lymph # (Auto) [place] # (Auto) Eos # (Auto) Baso # (Auto) Abs Immat Gran (auto) Absolute Neuts (auto) Absolute Nucleated RBC Nucleated RBC % (auto) ESR PT INR Sodium 136 Potassium 3.0 L Chloride 99 Carbon Dioxide 26 Anion Gap 14 BUN 7 L Creatinine 0.83 Estim Creat Clear Calc 87.3 Estimated GFR > 60 POC Glucose 258 H 279 H Random Glucose 338 H Estimat Average Glucose Hemoglobin A1c % Lactic Acid Calcium 8.7 Magnesium Total Bilirubin AST ALT Alkaline Phosphatase C-Reactive Protein 0.14 Total Protein Albumin Lipase Beta HCG, Quant Urine Color Urine Appearance Urine pH Ur Specific [place] Urine Protein Urine Glucose (UA) Urine Ketones Urine Blood Urine Nitrite Ur Leukocyte Esterase Urine RBC Urine WBC Ur Squamous Epith Cells Urine Bacteria Hyaline Casts Stool Occult Blood Stl C. cayetanensis PCR Stool Rotavirus A PCR Stl Adenov F 40/41 PCR Stool Astrovirus (PCR) Stool Campylobacter PCR Stool Cryptosporidium PCR Stl Sh Tox Pr E STEC PCR Stool E coli O157 PCR Stl Enterotoxigenic E PCR Stool EPEC (PCR) Stool EAEC (PCR) Stl E. histolytica PCR Stool Giardia Lamblia PCR Stl P. shigelloides PCR Stool Salmonella PCR Stool Sapovirus (PCR) Stl Shigella/EIEC PCR St Y.enterocolitica PCR Stool Vibrio (PCR) Stl Vibrio cholerae PCR Stl Norovirus GI/GII PCR C. difficile Tox B Gene 06/21/24 06/21/24 06/21/24 07:08 11:22 16:23 WBC RBC Hgb Hct MCV MCH MCHC RDW Plt Count MPV Immature Gran % (Auto) Neut % (Auto) Lymph % (Auto) [place] % (Auto) Eos % (Auto) Baso % (Auto) Lymph # (Auto) [place] # (Auto) Eos # (Auto) Baso # (Auto) Abs Immat Gran (auto) Absolute Neuts (auto) Absolute Nucleated RBC Nucleated RBC % (auto) ESR PT INR Sodium Potassium Chloride Carbon Dioxide Anion Gap BUN Creatinine Estim Creat Clear Calc Estimated GFR POC Glucose 306 H 157 H 314 H Random Glucose Estimat Average Glucose Hemoglobin A1c % Lactic Acid Calcium Magnesium Total Bilirubin AST ALT Alkaline Phosphatase C-Reactive Protein Total Protein Albumin Lipase Beta HCG, Quant Urine Color Urine Appearance Urine pH Ur Specific [place] Urine Protein Urine Glucose (UA) Urine Ketones Urine Blood Urine Nitrite Ur Leukocyte Esterase Urine RBC Urine WBC Ur Squamous Epith Cells Urine Bacteria Hyaline Casts Stool Occult Blood Stl C. cayetanensis PCR Stool Rotavirus A PCR Stl Adenov F 40 PCR Stool Astrovirus (PCR) Stool Campylobacter PCR Stool Cryptosporidium PCR Stl Sh Tox Pr E STEC PCR Stool E coli O157 PCR Stl Enterotoxigenic E PCR Stool EPEC (PCR) Stool EAEC (PCR) Stl E. histolytica PCR Stool Giardia Lamblia PCR Stl P. shigelloides PCR Stool Salmonella PCR Stool Sapovirus (PCR) Stl Shigella/EIEC PCR St Y.enterocolitica PCR Stool Vibrio (PCR) Stl Vibrio cholerae PCR Stl Norovirus GI/GII PCR C. difficile Tox B Gene 06/21/24 06/22/24 06/22/24 20:29 06:19 07:30 WBC RBC Hgb Hct MCV MCH MCHC RDW Plt Count MPV Immature Gran % (Auto) Neut % (Auto) Lymph % (Auto) [place] % (Auto) Eos % (Auto) Baso % (Auto) Lymph # (Auto) [place] # (Auto) Eos # (Auto) Baso # (Auto) Abs Immat Gran (auto) Absolute Neuts (auto) Absolute Nucleated RBC Nucleated RBC % (auto) ESR PT INR Sodium 139 Potassium 2.8 L* Chloride 102 Carbon Dioxide 26 Anion Gap 14 BUN 4 L Creatinine 0.67 Estim Creat Clear Calc 108.2 Estimated GFR > 60 POC Glucose 126 H 158 H Random Glucose 169 H Estimat Average Glucose Hemoglobin A1c % Lactic Acid Calcium 8.5 Magnesium Total Bilirubin AST ALT Alkaline Phosphatase C-Reactive Protein Total Protein Albumin Lipase Beta HCG, Quant Urine Color Urine Appearance Urine pH Ur Specific [place] Urine Protein Urine Glucose (UA) Urine Ketones Urine Blood Urine Nitrite Ur Leukocyte Esterase Urine RBC Urine WBC Ur Squamous Epith Cells Urine Bacteria Hyaline Casts Stool Occult Blood Stl C. cayetanensis PCR Stool Rotavirus A PCR Stl Adenov F 40/41 PCR Stool Astrovirus (PCR) Stool Campylobacter PCR Stool Cryptosporidium PCR Stl Sh Tox Pr E STEC PCR Stool E coli O157 PCR Stl Enterotoxigenic E PCR Stool EPEC (PCR) Stool EAEC (PCR) Stl E. histolytica PCR Stool Giardia Lamblia PCR Stl P. shigelloides PCR Stool Salmonella PCR Stool Sapovirus (PCR) Stl Shigella/EIEC PCR St Y.enterocolitica PCR Stool Vibrio (PCR) Stl Vibrio cholerae PCR Stl Norovirus GI/GII PCR C. difficile Tox B Gene Assessment and Plan Final Anesthetic Review Family History of Problems with Anesthesia: No History of Problems with Anesthesia: No
--- NOTE | 2024-06-22 09:07 | HO.ANESPROP2 ---
[facility] Active Problems Active Problems: All Active Problems Intractable nausea and vomiting (Acute) Chronic idiopathic constipation (Acute) Facial infection (Acute) Family history of Crohn's disease (Acute) Early satiety (Acute) Nausea and vomiting (Acute) Abdominal pain (Acute) Diarrhea (Acute) Diabetes (Acute) Nipple pain (Acute) External hemorrhoids (Acute) Breast pain, right (Acute) Bipolar 2 disorder (Acute) Past Medical History Medical History Diabetes Fibromyalgia Elevated cholesterol HTN (hypertension) Nipple pain External hemorrhoids Breast pain, right Bipolar 2 disorder Functional capacity: independent ambulation Family History Family History Maternal Uncle Kidney cancer Maternal Grandfather Bladder cancer Family history of problems with anesthesia: No Surgical History Surgical History History of incision and drainage (10/05/22) History of lymph node excision History of carpal tunnel release of both wrists History of appendectomy History of cholecystectomy History of tonsillectomy History of Problems with Anesthesia: No Social History Social History Household Members: Family Housing: House Do you presently have visiting nurse or other home services: No Alcohol intake: never Patient Tobacco Use Status: Current everyday Tobacco user Tobacco use type: Cigarette Cigarette Packs Per Day: 0.5 Cigarettes Per Day: 10.0 Years Smoked: sine age 12 e-Cigarette/Vaping Use: Never Used Second Hand Smoke Exposure: Yes Substance Use Type: Marijuana service: No Sexual orientation: Don't Know Meds Allergies Allergy/AdvReac Type Severity Reaction Status Date / Time Sulfa (Sulfonamide Allergy Unknown RASH Verified 06/18/24 15:54 Antibiotics) [SULFA (SULFONAMIDE ANTIBIOTICS)] Active Medications: Current Medications Acetaminophen (Acetaminophen 325 Mg Tablet) 650 mg PO Q6H PRN PRN Reason: Pain, Mild (Pain Scale 1-3), fever or headache Calcium Carbonate (Calcium Carbonate 750 Mg Tab.Chew) 750 mg PO Q4H PRN PRN Reason: Heartburn Last Admin: 06/19/24 10:55 Dose: 750 mg Ceftriaxone Sodium (Ceftriaxone Sodium 1 Gm Vial) 1 gm IVPUSH Q24H [facility] Last Admin: 06/21/24 18:18 Dose: 1 gm Clonidine HCl (Clonidine Hcl 0.1 Mg Tablet) 0.1 mg PO TID [facility]; Protocol Last Admin: 06/22/24 08:10 Dose: 0.1 mg Fluconazole (Fluconazole 150 Mg Tablet) 150 mg PO Q72H [facility] Stop: 06/22/24 19:01 Last Admin: 06/19/24 21:05 Dose: 150 mg Glucose (Glucose Gel 15 Gm Gel..Gram.) 15 gm PO Q15M PRN; Protocol PRN Reason: per Hypoglycemia Standing Ord. Dextrose (D10) 250 mls @ 750 mls/hr IV Q15M PRN; Protocol PRN Reason: per Hypoglycemia Standing Ord. Metronidazole (Flagyl) 500 mg in 100 mls @ 100 mls/hr IV Q8H [facility] Last Infusion: 06/22/24 07:08 Dose: Infused Potassium Chloride (Potassium Chloride/H20) 10 meq in 100 mls @ 100 mls/hr IV Q1H [facility] Stop: 06/22/24 11:44 Last Admin: 06/22/24 08:11 Dose: 100 mls/hr Insulin Human Lispro (Insulin Lispro 100 Unit/Ml 3 Ml Vial) 0 unit SUBCUT QIDACHS [facility]; Protocol Last Admin: 06/22/24 08:07 Dose: Not Given Lidocaine (Lidocaine 4 % Patch Adh..Patch) 1 patch TRANSDERMA DAILY [facility]; Protocol Last Admin: 06/22/24 08:10 Dose: 1 patch Loratadine (Loratadine 10 Mg Tablet) 10 mg PO DAILY [facility] Last Admin: 06/22/24 08:10 Dose: 10 mg Magnesium Hydroxide (Milk Of Magnesia 30 Ml Oral.Susp) 30 ml PO DAILY PRN PRN Reason: Constipation Melatonin (Melatonin 3 Mg Tablet) 6 mg PO BEDTIME PRN PRN Reason: Insomnia Last Admin: 06/21/24 23:02 Dose: 6 mg Morphine Sulfate (Morphine Sulfate 4 Mg/Ml Cartridge) 4 mg IVPUSH Q4H PRN; Protocol PRN Reason: Pain, Severe (Pain Scale 7-10) Last Admin: 06/22/24 04:57 Dose: 4 mg Ondansetron HCl (Ondansetron Hcl 4 Mg/2 Ml Vial) 4 mg IVPUSH Q8H PRN PRN Reason: Nausea and Vomiting Last Admin: 06/21/24 20:35 Dose: 4 mg Oxycodone HCl (Oxycodone Hcl Immed Release 5 Mg Tablet) 5 mg PO Q6H PRN PRN Reason: Pain, Moderate(Pain Scale 4-6) Last Admin: 06/22/24 08:10 Dose: 5 mg Sodium Chloride (0.9 % Sodium Chloride Flush 3 Ml Syringe) 3 ml IVFLUSH QSHIFT [facility] Last Admin: 06/22/24 08:11 Dose: 3 ml Sodium Chloride (Sodium Chloride 0.65 % Nasal 44 Ml Sprbtl) 1 spray NOSTRIL-B Q1H PRN PRN Reason: Dry Nasal Passages Tizanidine HCl (Tizanidine Hcl 4 Mg Tablet) 4 mg PO BEDTIME [facility] Last Admin: 06/21/24 20:36 Dose: 4 mg Valacyclovir HCl (Valacyclovir Hcl 500 Mg Tablet) 500 mg PO DAILY [facility] Last Admin: 06/22/24 08:10 Dose: 500 mg Home Medications ?Medication ?Instructions ?Recorded ?Confirmed ?Last Taken ?Type cetirizine 10 mg tablet 10 mg PO DAILY 05/02/22 06/18/24 06/17/24 History clonidine HCl 0.1 mg tablet 0.1 mg PO TID 05/02/22 06/18/24 06/17/24 History valacyclovir 500 mg tablet 500 mg PO DAILY 10/05/22 06/18/24 06/17/24 History tizanidine 4 mg tablet 4 mg PO BEDTIME 10/01/23 06/18/24 06/17/24 History ibuprofen 800 mg tablet 800 mg PO TID PRN Pain 06/18/24 06/18/24 06/17/24 History Exam Height,Weight and Vital Signs: Height 5 ft 2 in Weight 76.9 kg Last Vital Signs Temp 97.9 F 06/22/24 07:43 Pulse 60 06/22/24 07:43 Resp 19 06/22/24 07:43 BP 145/81 H 06/22/24 07:43 Pulse Ox 93 06/22/24 07:43 O2 Del Method Room Air 06/22/24 07:43 Pertinent Lab Results Pertinent Lab Results: Laboratory Tests 06/18/24 06/18/24 06/18/24 17:01 17:11 18:43 WBC 17.3 H RBC 5.06 Hgb 16.0 Hct 45.8 MCV 90.5 MCH 31.6 MCHC 34.9 RDW 12.0 Plt Count 325 MPV 9.8 Immature Gran % (Auto) 0.7 H Neut % (Auto) 83.7 H Lymph % (Auto) 9.2 L Cat[place] % (Auto) 6.0 Eos % (Auto) 0.1 Baso % (Auto) 0.3 Lymph # (Auto) 1.6 [place] # (Auto) 1.0 Eos # (Auto) 0.0 Baso # (Auto) 0.1 Abs Immat Gran (auto) 0.12 H Absolute Neuts (auto) 14.5 H Absolute Nucleated RBC 0.000 Nucleated RBC % (auto) 0.0 ESR 8 PT 11.8 INR 1.0 Sodium 138 Potassium 3.4 Chloride 102 Carbon Dioxide 22 Anion Gap 17 BUN 18 H Creatinine 0.95 Estim Creat Clear Calc 77.6 Estimated GFR > 60 POC Glucose Random Glucose 304 H Estimat Average Glucose Hemoglobin A1c % Lactic Acid 1.1 Calcium 8.9 D Magnesium 2.1 Total Bilirubin 0.8 AST 33 H ALT 27 Alkaline Phosphatase 65 C-Reactive Protein 0.28 Total Protein 7.9 Albumin 4.8 Lipase 13 Beta HCG, Quant < 2 Urine Color Yellow Urine Appearance Clear Urine pH 5.5 Ur Specific [place] >= 1.030 H Urine Protein 30 (1+) H Urine Glucose (UA) >=1000 H Urine Ketones >=160 Urine Blood Negative Urine Nitrite Negative Ur Leukocyte Esterase Negative Urine RBC 0-2 Urine WBC 0-5 Ur Squamous Epith Cells 3-5 Urine Bacteria None Seen Hyaline Casts 0-2 Stool Occult Blood Stl C. cayetanensis PCR Stool Rotavirus A PCR Stl Adenov F 40/41 PCR Stool Astrovirus (PCR) Stool Campylobacter PCR Stool Cryptosporidium PCR Stl Sh Tox Pr E STEC PCR Stool E coli O157 PCR Stl Enterotoxigenic E PCR Stool EPEC (PCR) Stool EAEC (PCR) Stl E. histolytica PCR Stool Giardia Lamblia PCR Stl P. shigelloides PCR Stool Salmonella PCR Stool Sapovirus (PCR) Stl Shigella/EIEC PCR St Y.enterocolitica PCR Stool Vibrio (PCR) Stl Vibrio cholerae PCR Stl Norovirus GI/GII PCR C. difficile Tox B Gene 12/19/24 12/20/24 12/20/24 20:27 00:35 06:04 WBC RBC Hgb Hct MCV MCH MCHC RDW Plt Count MPV Immature Gran % (Auto) Neut % (Auto) Lymph % (Auto) Catron % (Auto) Eos % (Auto) Baso % (Auto) Lymph # (Auto) [place] # (Auto) Eos # (Auto) Baso # (Auto) Abs Immat Gran (auto) Absolute Neuts (auto) Absolute Nucleated RBC Nucleated RBC % (auto) ESR PT INR Sodium Potassium Chloride Carbon Dioxide Anion Gap BUN Creatinine Estim Creat Clear Calc Estimated GFR POC Glucose 253 H 118 H 134 H Random Glucose Estimat Average Glucose Hemoglobin A1c % Lactic Acid Calcium Magnesium Total Bilirubin AST ALT Alkaline Phosphatase C-Reactive Protein Total Protein Albumin Lipase Beta HCG, Quant Urine Color Urine Appearance Urine pH Ur Specific [place] Urine Protein Urine Glucose (UA) Urine Ketones Urine Blood Urine Nitrite Ur Leukocyte Esterase Urine RBC Urine WBC Ur Squamous Epith Cells Urine Bacteria Hyaline Casts Stool Occult Blood Stl C. cayetanensis PCR Stool Rotavirus A PCR Stl Adenov F 40/41 PCR Stool Astrovirus (PCR) Stool Campylobacter PCR Stool Cryptosporidium PCR Stl Sh Tox Pr E STEC PCR Stool E coli O157 PCR Stl Enterotoxigenic E PCR Stool EPEC (PCR) Stool EAEC (PCR) Stl E. histolytica PCR Stool Giardia Lamblia PCR Stl P. shigelloides PCR Stool Salmonella PCR Stool Sapovirus (PCR) Stl Shigella/EIEC PCR St Y.enterocolitica PCR Stool Vibrio (PCR) Stl Vibrio cholerae PCR Stl Norovirus GI/GII PCR C. difficile Tox B Gene 06/19/24 06/19/24 06/19/24 06:53 07:36 07:55 WBC 11.2 H RBC 4.67 Hgb 14.8 Hct 42.4 MCV 90.8 MCH 31.7 MCHC 34.9 RDW 11.9 Plt Count 250 MPV 9.5 Immature Gran % (Auto) 0.6 H Neut % (Auto) 61.2 Lymph % (Auto) 28.7 Catron % (Auto) 8.9 Eos % (Auto) 0.3 Baso % (Auto) 0.3 Lymph # (Auto) 3.2 [place] # (Auto) 1.0 Eos # (Auto) 0.0 Baso # (Auto) 0.0 Abs Immat Gran (auto) 0.07 H Absolute Neuts (auto) 6.9 Absolute Nucleated RBC 0.000 Nucleated RBC % (auto) 0.0 ESR PT INR Sodium 137 Potassium 3.1 L Chloride 103 Carbon Dioxide 21 L Anion Gap 16 BUN 11 Creatinine 0.72 Estim Creat Clear Calc 100.6 Estimated GFR > 60 POC Glucose 148 H Random Glucose 136 H Estimat Average Glucose Hemoglobin A1c % Lactic Acid Calcium 8.6 Magnesium Total Bilirubin AST ALT Alkaline Phosphatase C-Reactive Protein 0.38 Total Protein Albumin Lipase Beta HCG, Quant Urine Color Urine Appearance Urine pH Ur Specific [place] Urine Protein Urine Glucose (UA) Urine Ketones Urine Blood Urine Nitrite Ur Leukocyte Esterase Urine RBC Urine WBC Ur Squamous Epith Cells Urine Bacteria Hyaline Casts Stool Occult Blood NEGATIVE Stl C. cayetanensis PCR Not Detected Stool Rotavirus A PCR Not Detected Stl Adenov F 40/41 PCR Not Detected Stool Astrovirus (PCR) Not Detected Stool Campylobacter PCR Not Detected Stool Cryptosporidium PCR Not Detected Stl Sh Tox Pr E STEC PCR Not Detected Stool E coli O157 PCR Not applicable Stl Enterotoxigenic E PCR Not Detected Stool EPEC (PCR) Not Detected Stool EAEC (PCR) Not Detected Stl E. histolytica PCR Not Detected Stool Giardia Lamblia PCR Not Detected Stl P. shigelloides PCR Not Detected Stool Salmonella PCR Not Detected Stool Sapovirus (PCR) Not Detected Stl Shigella/EIEC PCR Not Detected St Y.enterocolitica PCR Not Detected Stool Vibrio (PCR) Not Detected Stl Vibrio cholerae PCR Not Detected Stl Norovirus GI/GII PCR Not Detected C. difficile Tox B Gene NEGATIVE 06/19/24 06/19/24 06/19/24 11:21 15:28 20:27 WBC RBC Hgb Hct MCV MCH MCHC RDW Plt Count MPV Immature Gran % (Auto) Neut % (Auto) Lymph % (Auto) Cat[place] % (Auto) Eos % (Auto) Baso % (Auto) Lymph # (Auto) [place] # (Auto) Eos # (Auto) Baso # (Auto) Abs Immat Gran (auto) Absolute Neuts (auto) Absolute Nucleated RBC Nucleated RBC % (auto) ESR PT INR Sodium Potassium Chloride Carbon Dioxide Anion Gap BUN Creatinine Estim Creat Clear Calc Estimated GFR POC Glucose 188 H 267 H 227 H Random Glucose Estimat Average Glucose Hemoglobin A1c % Lactic Acid Calcium Magnesium Total Bilirubin AST ALT Alkaline Phosphatase C-Reactive Protein Total Protein Albumin Lipase Beta HCG, Quant Urine Color Urine Appearance Urine pH Ur Specific [place] Urine Protein Urine Glucose (UA) Urine Ketones Urine Blood Urine Nitrite Ur Leukocyte Esterase Urine RBC Urine WBC Ur Squamous Epith Cells Urine Bacteria Hyaline Casts Stool Occult Blood Stl C. cayetanensis PCR Stool Rotavirus A PCR Stl Adenov F PCR Stool Astrovirus (PCR) Stool Campylobacter PCR Stool Cryptosporidium PCR Stl Sh Tox Pr E STEC PCR Stool E coli O157 PCR Stl Enterotoxigenic E PCR Stool EPEC (PCR) Stool EAEC (PCR) Stl E. histolytica PCR Stool Giardia Lamblia PCR Stl P. shigelloides PCR Stool Salmonella PCR Stool Sapovirus (PCR) Stl Shigella/EIEC PCR St Y.enterocolitica PCR Stool Vibrio (PCR) Stl Vibrio cholerae PCR Stl Norovirus GI/GII PCR C. difficile Tox B Gene 06/20/24 06/20/24 06/20/24 06:55 07:12 11:07 WBC 8.4 RBC 4.54 Hgb 14.4 Hct 41.4 MCV 91.2 MCH 31.7 MCHC 34.8 RDW 11.8 Plt Count 239 MPV 9.6 Immature Gran % (Auto) Neut % (Auto) Lymph % (Auto) Catron % (Auto) Eos % (Auto) Baso % (Auto) Lymph # (Auto) [place] # (Auto) Eos # (Auto) Baso # (Auto) Abs Immat Gran (auto) Absolute Neuts (auto) Absolute Nucleated RBC 0.000 Nucleated RBC % (auto) 0.0 ESR PT INR Sodium 137 Potassium 3.1 L Chloride 102 Carbon Dioxide 26 Anion Gap 12 BUN 7 L Creatinine 0.69 Estim Creat Clear Calc 105.1 Estimated GFR > 60 POC Glucose 207 H 181 H Random Glucose 235 H Estimat Average Glucose 240 Hemoglobin A1c % 10.0 H Lactic Acid Calcium 8.4 Magnesium 1.9 Total Bilirubin AST ALT Alkaline Phosphatase C-Reactive Protein Total Protein Albumin Lipase Beta HCG, Quant Urine Color Urine Appearance Urine pH Ur Specific [place] Urine Protein Urine Glucose (UA) Urine Ketones Urine Blood Urine Nitrite Ur Leukocyte Esterase Urine RBC Urine WBC Ur Squamous Epith Cells Urine Bacteria Hyaline Casts Stool Occult Blood Stl C. cayetanensis PCR Stool Rotavirus A PCR Stl Adenov F PCR Stool Astrovirus (PCR) Stool Campylobacter PCR Stool Cryptosporidium PCR Stl Sh Tox Pr E STEC PCR Stool E coli O157 PCR Stl Enterotoxigenic E PCR Stool EPEC (PCR) Stool EAEC (PCR) Stl E. histolytica PCR Stool Giardia Lamblia PCR Stl P. shigelloides PCR Stool Salmonella PCR Stool Sapovirus (PCR) Stl Shigella/EIEC PCR St Y.enterocolitica PCR Stool Vibrio (PCR) Stl Vibrio cholerae PCR Stl Norovirus GI/GII PCR C. difficile Tox B Gene 06/20/24 06/20/24 06/21/24 16:01 20:49 06:33 WBC RBC Hgb Hct MCV MCH MCHC RDW Plt Count MPV Immature Gran % (Auto) Neut % (Auto) Lymph % (Auto) [place] % (Auto) Eos % (Auto) Baso % (Auto) Lymph # (Auto) [place] # (Auto) Eos # (Auto) Baso # (Auto) Abs Immat Gran (auto) Absolute Neuts (auto) Absolute Nucleated RBC Nucleated RBC % (auto) ESR PT INR Sodium 136 Potassium 3.0 L Chloride 99 Carbon Dioxide 26 Anion Gap 14 BUN 7 L Creatinine 0.83 Estim Creat Clear Calc 87.3 Estimated GFR > 60 POC Glucose 258 H 279 H Random Glucose 338 H Estimat Average Glucose Hemoglobin A1c % Lactic Acid Calcium 8.7 Magnesium Total Bilirubin AST ALT Alkaline Phosphatase C-Reactive Protein 0.14 Total Protein Albumin Lipase Beta HCG, Quant Urine Color Urine Appearance Urine pH Ur Specific [place] Urine Protein Urine Glucose (UA) Urine Ketones Urine Blood Urine Nitrite Ur Leukocyte Esterase Urine RBC Urine WBC Ur Squamous Epith Cells Urine Bacteria Hyaline Casts Stool Occult Blood Stl C. cayetanensis PCR Stool Rotavirus A PCR Stl Adenov F 40/41 PCR Stool Astrovirus (PCR) Stool Campylobacter PCR Stool Cryptosporidium PCR Stl Sh Tox Pr E STEC PCR Stool E coli O157 PCR Stl Enterotoxigenic E PCR Stool EPEC (PCR) Stool EAEC (PCR) Stl E. histolytica PCR Stool Giardia Lamblia PCR Stl P. shigelloides PCR Stool Salmonella PCR Stool Sapovirus (PCR) Stl Shigella/EIEC PCR St Y.enterocolitica PCR Stool Vibrio (PCR) Stl Vibrio cholerae PCR Stl Norovirus GI/GII PCR C. difficile Tox B Gene 06/21/24 06/21/24 06/21/24 07:08 11:22 16:23 WBC RBC Hgb Hct MCV MCH MCHC RDW Plt Count MPV Immature Gran % (Auto) Neut % (Auto) Lymph % (Auto) [place] % (Auto) Eos % (Auto) Baso % (Auto) Lymph # (Auto) [place] # (Auto) Eos # (Auto) Baso # (Auto) Abs Immat Gran (auto) Absolute Neuts (auto) Absolute Nucleated RBC Nucleated RBC % (auto) ESR PT INR Sodium Potassium Chloride Carbon Dioxide Anion Gap BUN Creatinine Estim Creat Clear Calc Estimated GFR POC Glucose 306 H 157 H 314 H Random Glucose Estimat Average Glucose Hemoglobin A1c % Lactic Acid Calcium Magnesium Total Bilirubin AST ALT Alkaline Phosphatase C-Reactive Protein Total Protein Albumin Lipase Beta HCG, Quant Urine Color Urine Appearance Urine pH Ur Specific [place] Urine Protein Urine Glucose (UA) Urine Ketones Urine Blood Urine Nitrite Ur Leukocyte Esterase Urine RBC Urine WBC Ur Squamous Epith Cells Urine Bacteria Hyaline Casts Stool Occult Blood Stl C. cayetanensis PCR Stool Rotavirus A PCR Stl Adenov F 40/41 PCR Stool Astrovirus (PCR) Stool Campylobacter PCR Stool Cryptosporidium PCR Stl Sh Tox Pr E STEC PCR Stool E coli O157 PCR Stl Enterotoxigenic E PCR Stool EPEC (PCR) Stool EAEC (PCR) Stl E. histolytica PCR Stool Giardia Lamblia PCR Stl P. shigelloides PCR Stool Salmonella PCR Stool Sapovirus (PCR) Stl Shigella/EIEC PCR St Y.enterocolitica PCR Stool Vibrio (PCR) Stl Vibrio cholerae PCR Stl Norovirus GI/GII PCR C. difficile Tox B Gene 06/21/24 06/22/24 06/22/24 20:29 06:19 07:30 WBC RBC Hgb Hct MCV MCH MCHC RDW Plt Count MPV Immature Gran % (Auto) Neut % (Auto) Lymph % (Auto) [place] % (Auto) Eos % (Auto) Baso % (Auto) Lymph # (Auto) [place] # (Auto) Eos # (Auto) Baso # (Auto) Abs Immat Gran (auto) Absolute Neuts (auto) Absolute Nucleated RBC Nucleated RBC % (auto) ESR PT INR Sodium 139 Potassium 2.8 L* Chloride 102 Carbon Dioxide 26 Anion Gap 14 BUN 4 L Creatinine 0.67 Estim Creat Clear Calc 108.2 Estimated GFR > 60 POC Glucose 126 H 158 H Random Glucose 169 H Estimat Average Glucose Hemoglobin A1c % Lactic Acid Calcium 8.5 Magnesium 2.0 Total Bilirubin AST ALT Alkaline Phosphatase C-Reactive Protein Total Protein Albumin Lipase Beta HCG, Quant Urine Color Urine Appearance Urine pH Ur Specific [place] Urine Protein Urine Glucose (UA) Urine Ketones Urine Blood Urine Nitrite Ur Leukocyte Esterase Urine RBC Urine WBC Ur Squamous Epith Cells Urine Bacteria Hyaline Casts Stool Occult Blood Stl C. cayetanensis PCR Stool Rotavirus A PCR Stl Adenov F 40/41 PCR Stool Astrovirus (PCR) Stool Campylobacter PCR Stool Cryptosporidium PCR Stl Sh Tox Pr E STEC PCR Stool E coli O157 PCR Stl Enterotoxigenic E PCR Stool EPEC (PCR) Stool EAEC (PCR) Stl E. histolytica PCR Stool Giardia Lamblia PCR Stl P. shigelloides PCR Stool Salmonella PCR Stool Sapovirus (PCR) Stl Shigella/EIEC PCR St Y.enterocolitica PCR Stool Vibrio (PCR) Stl Vibrio cholerae PCR Stl Norovirus GI/GII PCR C. difficile Tox B Gene Airway Mallampati Class: III TM Dist: >3cm Neck ROM: Full Denture: Upper and Lower Heart: RRR Lungs: CTA Assessment and Plan Assessment Anesthesia Assessment: Anesthesia Plan Discussed, Smoking Cess. Discussed and Chart Reviewed Final Anesthetic Review Family History of Problems with Anesthesia: No History of Problems with Anesthesia: No NPO: Yes ASA Class: III Final Preanesthetic Review: Meds/Allgs Chart Reviewed, Consent Obtained/Reviewed and Anes Risks/Benef Reviewed Patient Risk: Intermediate Procedure Risk: Low Anesthetic Plan Anesthetic Plan: MAC: Disposition: Standard PACU
--- NOTE | 2024-06-22 10:14 | MHC.SHP ---
Pre-Procedural Eval Section A - 24 Hr Update-Section A only Date of Service: 06/22/24 The patient is an INPATIENT: Yes The patient has been examined within 24 hours of the surgical procedure. The History & Physical has been completed within 30 days and I have reviewed it.: Yes Section B - Complete if H&P > 30 days Chief Complaint: Abd pain, diarrhea Allergies: Allergies Allergy/AdvReac Type Severity Reaction Status Date / Time Sulfa (Sulfonamide Allergy Unknown RASH Verified 06/18/24 15:54 Antibiotics) [SULFA (SULFONAMIDE ANTIBIOTICS)] Plan Diagnosis/Plan: Unchanged I have reviewed the history and physical and performed a pertinent physical examination on my patient. No changes have occurred unless specified. Time Spent With Patient Time: Total time managing care of this patient today ____ minutes.
--- NOTE | 2024-06-22 10:15 | MHC.CM.PN ---
Per ROUNDS discussion, Patient is being scoped today and may be medically cleared for dc later today; home is the plan and CM will continue to follow.
--- NOTE | 2024-06-22 11:04 | P.OPN-COLO_ITS ---
Colonoscopy Operative Note Operative Note Date of Service: 06/22/24 Narrative: Procedure: Upper endoscopy and colonoscopy Indication: Abd pain, vomiting, diarrhea Endoscopist: Sugey Raymond MD Anesthesia Provider: Dr Any Corcoran Anesthesia type: MAC Instrument: [id number] and [id number] EGD Procedure:?? The procedure, indications, preparation and potential complications were reviewed with the patient, who indicated understanding and gave written informed consent to proceed. The endoscope was introduced through the mouth, and advanced to the 2nd part of the duodenum. The mucosa was carefully examined on slow withdrawal of the endoscope. The patient tolerated the procedure well. There were no immediate complications.? EGD Findings:? * Esophagus:? Normal esophageal mucosa was noted. The Z-line was at 39 cm. Cold forceps biopsies were taken from middle and lower esophagus for histology. * Stomach:? Erythema and scant heme noted in the antrum. Retroflexion was performed in the cardia that showed Hill grade II hiatal hernia. Random cold forceps biopsies were taken from the stomach. * Duodenum:? Erythema, edema and erosions noted in the duodenal bulb. Remaining duodenal mucosa normal to the extent examined. Cold forceps biopsies were taken from the duodenal bulb and 2nd portion of the duodenum to rule out celiac sprue. Colonoscopy Procedure:? The patient was then turned for the colonoscopy. A digital rectal exam was per formed which was normal.? A distal attachment cap was affixed to the tip of the scope and the colonoscope was then inserted through the anus and advanced through the colon and advanced to the cecum at 75 cm and terminal ileum.? Appendiceal orifice and ileocecal valve were identified. Mucosa was carefully examined under high definition white light as the instrument was slowly withdrawn in a retrograde panoramic fashion. Retroflexion was performed in rectum. The procedure was not difficult. The quality of the prep was BBPS: 2+3+2 = adequate Withdrawal time 15 minutes Limitations: No limitations Findings: Mucosa: Normal colon and terminal ileum mucosa. Cold forceps biopsies were taken from R and L side of the colon to rule out microscopic colitis. Protruding lesions: * 1 sessile polyps of size 2 mm in the cecum. Cold forceps polypectomy was performed. The polyp was completely removed and retrieved. * 1 sessile polyps of size 4 mm in the sigmoid colon. Cold forceps polypectomy was performed. The polyp was completely removed and retrieved. * 1 sessile polyps of size 6 mm in the rectum. Cold snare polypectomy was performed. The polyp was completely removed and retrieved. * Small internal hemorrhoids without stigmata of recent bleeding. Impression: 1. Normal esophagus (biopsy) 2. Gastritis (biopsy) 3. Small hiatal hernia 4. Duodenitis (biopsy) 5. Normal colon and terminal ileum mucosa (biopsy) 6. Total of 3 polyps removed 7. Internal hemorrhoids Recommendations:?? * Follow-up path results * Avoid NSAIDs * H Pylori treatment if biopsies + * Colonoscopy in 3 years if all polyps are adenomas otherwise can resume asymptomatic colorectal ca screening at age 44. * Will set up outpatient follow up with her GI Halima Breen NP
[2024-06-22] MEDS: Potassium Chloride ER 20 MEQ TAB.ER.PRT 40 MEQ PO (13:06)
--- NOTE | 2024-06-22 13:59 | HO.POSTANES ---
Post Anesthesia Evaluation Post Anesthesia Evaluation Date of Service: 06/22/24 Vital Signs: Vital Signs Temp Pulse Resp BP Pulse Ox O2 Del Method 06/22/24 13:15 169/99 H 06/22/24 13:04 97.4 F 76 18 96 Room Air 06/22/24 12:05 97 F 61 16 146/84 H 96 Room Air 06/22/24 11:50 61 16 153/82 H 96 Room Air 06/22/24 11:35 59 16 163/81 H 95 Room Air 06/22/24 11:20 97 F 72 16 165/89 H 95 Room Air 06/22/24 11:13 97 F 72 16 148/96 H 95 Room Air 06/22/24 11:08 97 F 72 16 148/96 H 95 Room Air 06/22/24 11:03 97 F 72 16 148/96 H 95 Room Air 06/22/24 09:46 97.6 F 76 16 156/98 H 97 Room Air 06/22/24 07:43 97.9 F 60 19 145/81 H 93 Room Air 06/22/24 03:16 97.7 F 61 14 134/77 97 Room Air Anesthesia: Monitored Mental Status: Awake Pain Control: Satisfactory Nausea/Vomiting: None Hydration: Adequate Anesthesia-Related Issues: No Anes. Related Issues
[2024-06-22 14:09] LABS: Anion Gap 10 (12-20); Blood Urea Nitrogen 4 mg/dL (9-16); Calcium 8.2 mg/dL (8.4-10.2); Carbon Dioxide 29 mmol/L (22-29); Chloride 104 mmol/L (96-108); Creatinine Clr Calc Pharmacy 97.9; Estimated Glomerular Filt Rate > 60; Glucose Random 207 mg/dL (60-115); Potassium 3.3 mmol/L (3.3-5.1); Sodium 140 mmol/L (135-145)
[2024-06-22] MEDS: Fluconazole 150 MG TABLET PO (14:09)
--- NOTE | 2024-06-22 14:44 | PM.DS ---
DS: Providers Provider Date of Service: 06/22/24 Date of admission: 06/18/24 19:11 Date of discharge: 06/22/24 Primary care physician: Obdulia Elliott MD Consults: 06/18/24 19:11 Consult to Gastroenterology Routine Consulting Provider: Sugey Raymond Reason for consultation: colitis, bright red blood in stools DS: Diagnosis Discharge Diagnosis (1) Diabetes: Status: Acute (2) Hypokalemia: Status: Acute (3) Colitis: Status: Inactive (4) Colon polyps: Status: Acute (5) Duodenitis: Status: Acute (6) Gastritis: Status: Acute DS: Summary Hospital Course Hospital Course: From the history and physical by the admitting hospitalist, ARUNA Grant, 06/18/24: Pt is a 38-year-old female with a PMH significant for?[id number] type 2 diabetes, HTN, fibromyalgia, and bipolar disorder who presents to the ED with?intractable nausea, vomiting, left-sided abdominal pain, and hematochezia x3 days. Patient reports symptoms began ?out of the blue? on Saturday. Abdominal pain has been primarily left sided in LUQ. Some chest pain associated with vomiting. Patient denies diarrhea and has had formed stools. Patient initially presented to the ED on Saturday and was diagnosed with colitis and started on oral antibiotics. Since then patient states that nausea, vomiting, and abdominal pain have persisted. Has been unable to tolerate anything by mouth, including medications, as will began vomiting within the hour after any oral intake. Thinks she saw some flecks of blood in some of her vomit yesterday and today. Today patient noticed bright red blood per rectum after bowel movement. Patient does have a history of hemorrhoids. Subjective fever and chills at home. Patient also notes has a diffuse, pruritic rash on back, shoulders, and upper arms that is worsened after a hot shower. Of note, the patient reports presented to the ED in March with similar symptoms. Nausea and vomiting eventually went away, but abdominal pain has lingered since that time. In the ED pt was tachycardic up to 108 and hypertensive as high as 196/98. Labs were significant for leukocytosis of 17.3 otherwise grossly unremarkable and around baseline for patient. Stable H&H. No significant electrolyte abnormalities. Renal function baseline. Hepatic function baseline. Lactic acid WNL at 1.1. UA negative for UTI. CT of abdomen/pelvis from 2 days ago on 06/16 found diffuse mural thickening involving entire colon without fat stranding, findings suggestive of colitis. Pt was treated with IVF, metoclopramide, morphine, hydromorphone, and levofloxacin. Pt will be admitted to the hospital treatment and further evaluation of intractable nausea, vomiting, and abdominal pain in the setting of colitis. d4 for 38yo F with DM2, HTN, FM, and bipolar disorder presenting with N/V/abd pain/hematochezia x3d, found to have colitis and admitted to the medical-surgical unit. Hospital course by problem: colitis - Cdiff + GI panel negative; treated with ceftriaxone + metronidazole for 4 days and discharged on amoxicillin-clavulanate for 4 days. - GI consulted; EGD and C-scope done by Dr Sugey Raymond on 06/22/24: 1. Normal esophagus (biopsy) 2. Gastritis (biopsy) 3. Small hiatal hernia 4. Duodenitis (biopsy) 5. Normal colon and terminal ileum mucosa (biopsy) 6. Total of 3 polyps removed 7. Internal hemorrhoids - to follow up with [facility] in 2 weeks for biopsy results. Discharged on bid omeprazole. hypok - Required repeated repletion. Started on maintenance KCl 20 mEq daily; to repeat BMP in 1 week. DM2 - Uncontrolled with A1c 10. Counseled diabetic diet/exercise. Started on glipizide and will likely need regimen intensification; advised to follow up with primary care doctor in 1 week. Time Attestation Discharge Coordination Time (in mins): 40 Quality: Safe Use of Opioids Does Pt have an Active Cancer Diagnosis on the Problem List?: No Quality: Stroke Does the patient have a stroke diagnosis?: No Physical Exam Vital Signs: Vital Signs: Last Vital Signs Temp 97.4 F 06/22/24 13:04 Pulse 76 06/22/24 13:04 Resp 18 06/22/24 13:04 BP 169/99 H 06/22/24 13:15 Pulse Ox 96 06/22/24 13:04 O2 Del Method Room Air 06/22/24 13:04 BMI result Body Mass Index 31.0 Gen: in no acute distress HEENT: sclera anicteric, moist mucus membranes Neck: supple Lungs: clear to auscultation bilaterally Heart: regular rate and rhythm, no murmurs Abd: soft, non-tender, non-distended Ext: no edema Skin: warm/well-perfused Neuro: alert and oriented x3, no focal findings Psych: appropriate affect DS: Data Data Completed and Pending Completed studies during hospitalization [Text1]: Laboratory Results WBC 8.4 X10*3/uL (4.8-10.8) 06/20/24 06:55 RBC 4.54 X10*6/uL (4.20-5.50) 06/20/24 06:55 Hgb 14.4 g/dl (12.0-16.0) 06/20/24 06:55 Hct 41.4 % (37.0-47.0) 06/20/24 06:55 MCV 91.2 fL (80.0-98.0) 06/20/24 06:55 MCH 31.7 pg (27.0-33.0) 06/20/24 06:55 MCHC 34.8 g/dl (31.0-35.0) 06/20/24 06:55 RDW 11.8 % (11.0-16.0) 06/20/24 06:55 Plt Count 239 X10*3/uL (160-400) 06/20/24 06:55 MPV 9.6 fL (9.4-12.3) 06/20/24 06:55 Immature Gran % (Auto) 0.6 % (0.0-0.4) H 06/19/24 06:53 Neut % (Auto) 61.2 % (45-73) 06/19/24 06:53 Lymph % (Auto) 28.7 % (20-40) 06/19/24 06:53 [place] % (Auto) 8.9 % (2-11) 06/19/24 06:53 Eos % (Auto) 0.3 % (0-4) 06/19/24 06:53 Baso % (Auto) 0.3 % (0-2) 06/19/24 06:53 Lymph # (Auto) 3.2 X10*3/uL (1.2-4.9) 06/19/24 06:53 [place] # (Auto) 1.0 X10*3/uL (0.1-1.2) 06/19/24 06:53 Eos # (Auto) 0.0 X10*3/uL (0.0-0.4) 06/19/24 06:53 Baso # (Auto) 0.0 X10*3/uL (0.0-0.2) 06/19/24 06:53 Abs Immat Gran (auto) 0.07 X10*3/uL (0.00-0.03) H 06/19/24 06:53 Absolute Neuts (auto) 6.9 x10*3/uL (2.0-8.3) 06/19/24 06:53 Absolute Nucleated RBC 0.000 X10*3/uL (0.0-0.012) 06/20/24 06:55 Nucleated RBC % (auto) 0.0 /100WBC (0.0-0.2) 06/20/24 06:55 ESR 8 MM/HR (0-20) 06/18/24 17:01 PT 11.8 SEC (10.9-12.4) 06/18/24 17:01 INR 1.0 (0.9-1.1) 06/18/24 17:01 Sodium 140 mmol/L (135-145) 06/22/24 13:24 Potassium 3.3 mmol/L (3.3-5.1) 06/22/24 13:24 Chloride 104 mmol/L (96-108) 06/22/24 13:24 Carbon Dioxide 29 mmol/L (22-29) 06/22/24 13:24 Anion Gap 10 (12-20) L 06/22/24 13:24 BUN 4 mg/dL (9-16) L 06/22/24 13:24 Creatinine 0.74 mg/dL (0.5-1.4) 06/22/24 13:24 Estim Creat Clear Calc 97.9 06/22/24 13:24 Estimated GFR > 60 06/22/24 13:24 POC Glucose 158 mg/dL (60-115) H 06/22/24 07:30 Random Glucose 207 mg/dL (60-115) H 06/22/24 13:24 Estimat Average Glucose 240 mg/dL 06/20/24 06:55 Hemoglobin A1c % 10.0 % (<6.0) H 06/20/24 06:55 Lactic Acid 1.1 mmol/L (0.5-2.0) 06/18/24 17:01 Calcium 8.2 mg/dL (8.4-10.2) L 06/22/24 13:24 Magnesium 2.0 mg/dL (1.6-2.6) 06/22/24 06:19 Total Bilirubin 0.8 mg/dL (0.0-1.0) 06/18/24 17:11 AST 33 U/L (5-31) H 06/18/24 17:11 ALT 27 U/L (0-31) 06/18/24 17:11 Alkaline Phosphatase 65 U/L (39-117) 06/18/24 17:11 C-Reactive Protein 0.14 mg/dL (< or = 0.50) 06/21/24 06:33 Total Protein 7.9 g/dL (6.5-8.0) 06/18/24 17:11 Albumin 4.8 g/dL (3.5-5.0) 06/18/24 17:11 Lipase 13 U/L (8-78) 06/18/24 17:11 Beta HCG, Quant < 2 mIU/mL 06/18/24 17:01 Urine Color Yellow 06/18/24 18:43 Urine Appearance Clear 06/18/24 18:43 Urine pH 5.5 (5.0-9.0) 06/18/24 18:43 Ur Specific [place] >= 1.030 (1.005-1.025) H 06/18/24 18:43 Urine Protein 30 (1+) mg/dL (Neg-Trace) H 06/18/24 18:43 Urine Glucose (UA) >=1000 mg/dL (Negative) H 06/18/24 18:43 Urine Ketones >=160 mg/dL (Negative) 06/18/24 18:43 Urine Blood Negative (Negative) 06/18/24 18:43 Urine Nitrite Negative (Negative) 06/18/24 18:43 Ur Leukocyte Esterase Negative (Negative) 06/18/24 18:43 Urine RBC 0-2 /HPF (0-2) 06/18/24 18:43 Urine WBC 0-5 /HPF (0-5) 06/18/24 18:43 Ur Squamous Epith Cells 3-5 /HPF (0-2) 06/18/24 18:43 Urine Bacteria None Seen (None Seen) 06/18/24 18:43 Hyaline Casts 0-2 /LPF (0-2) 06/18/24 18:43 Stool Occult Blood NEGATIVE (NEGATIVE) 06/19/24 07:55 Stl C. cayetanensis PCR Not Detected (Not Detect.) 06/19/24 07:55 Stool Rotavirus A PCR Not Detected (Not Detect.) 06/19/24 07:55 Stl Adenov F 40/41 PCR Not Detected (Not Detect.) 12 07:55 Stool Astrovirus (PCR) Not Detected (Not Detect.) 06/19/24 07:55 Stool Campylobacter PCR Not Detected (Not Detect.) 06/19/24 07:55 Stool Cryptosporidium PCR Not Detected (Not Detect.) 06/19/24 07:55 Stl Sh Tox Pr E STEC PCR Not Detected (Not Detect.) 06/19/24 07:55 Stool E coli O157 PCR Not applicable (Not Detect.) 06/19/24 07:55 Stl Enterotoxigenic E PCR Not Detected (Not Detect.) 06/19/24 07:55 Stool EPEC (PCR) Not Detected (Not Detect.) 06/19/24 07:55 Stool EAEC (PCR) Not Detected (Not Detect.) 06/19/24 07:55 Stl E. histolytica PCR Not Detected (Not Detect.) 06/19/24 07:55 Stool Giardia Lamblia PCR Not Detected (Not Detect.) 06/19/24 07:55 Stl P. shigelloides PCR Not Detected (Not Detect.) 06/19/24 07:55 Stool Salmonella PCR Not Detected (Not Detect.) 06/19/24 07:55 Stool Sapovirus (PCR) Not Detected (Not Detect.) 06/19/24 07:55 Stl Shigella/EIEC PCR Not Detected (Not Detect.) 06/19/24 07:55 St Y.enterocolitica PCR Not Detected (Not Detect.) 06/19/24 07:55 Stool Vibrio (PCR) Not Detected (Not Detect.) 06/19/24 07:55 Stl Vibrio cholerae PCR Not Detected (Not Detect.) 06/19/24 07:55 Stl Norovirus GI/GII PCR Not Detected (Not Detect.) 06/19/24 07:55 C. difficile Tox B Gene NEGATIVE (Negative) 06/19/24 07:[address] 06/19/24 18:45 IMPRESSION: 1. No CT evidence of rib fracture. 2. No suspicious lung mass, there are scattered bilateral groundglass lung nodules largest 1.2 cm. 3. No lymphadenopathy. 4. No pleural effusion. No evidence of lung mass or suspicious nodules, there are scattered tiny micronodules measuring 3 mm or less, nonspecific. 5. According to the UPDATED 2017 Fleischner Society recommendations, the advised follow-up imaging for a single pure ground-glass nodule measuring 11mm or greater and/or nodules with suspicious features such as bubbly lucencies or cystic areas is: CT at 6 months to confirm persistence. If stable, then follow-up CT every 2 years until 5 years documented stability. Electronically signed by: Rodrigo Matos MD 06/20/2024 01:26 PM [facility] [place] [place] Pending studies at discharge: Pending at discharge 06/22/24 10:31 Surgical [PTH] Routine Discharge Plan Discharge Anticipated Discharge Date/Time: 06/22/24 11:53 Patient Disposition: Home, Self-Care Discharge Diagnosis: colitis hypokalemia gastritis duodenitis colon polyps diabetes type 2 Referrals: Obdulia Elliott MD [Primary Care Provider] - 1 Week Halima Breen ANP-C [Nurse Practitioner] - 2 Weeks Discharge Medications: New omeprazole 20 mg capsule,delayed release(DR/EC) 20 mg PO BID Qty: 60 0RF amoxicillin-pot clavulanate 875-125 mg tablet 1 tab PO BID Qty: 8 0RF glipizide 10 mg tablet extended release 24hr 10 mg PO DAILY Qty: 30 0RF potassium chloride 20 mEq tablet extended release 20 meq PO DAILY Qty: 30 0RF Continued tizanidine 4 mg tablet 4 mg PO BEDTIME valacyclovir 500 mg tablet 500 mg PO DAILY ondansetron HCl 8 mg tablet 8 mg PO Q8H PRN (Reason: nausea and vomiting) Qty: 10 0RF clonidine HCl 0.1 mg tablet 0.1 mg PO TID cetirizine 10 mg tablet 10 mg PO DAILY Discontinued metronidazole 500 mg tablet 500 mg PO Q8H 10 Days Qty: 30 0RF ciprofloxacin HCl 500 mg tablet 500 mg PO Q12H Qty: 20 0RF ibuprofen 800 mg tablet 800 mg PO TID PRN (Reason: Pain) Discharge Orders: Discharge Order (Routine); Ordered 06/22/24 Ordered By: Ktaelyn Schmitt Diet: Diabetic diet Activity on Discharge: As tolerated Print Language: Tajik Other Ambulatory Orders: Basic Metabolic Panel (Routine) Timeframe: 1 Week Facility: [facility] - Location: Laboratory Ordered By: Katelyn Schmitt Care Plan Goals: GI health prevent complications of diabetes Health Concerns: colitis hypokalemia gastritis duodenitis colon polyps diabetes type 2 Plan of Treatment: take amoxicillin-clavulanate twice daily for 4 days take potassium 20 mEq daily; recheck BMP in 1 week take omeprazole 20 mg twice daily diabetic diet + exercise; start glipizide follow up with [facility] in 2 weeks for biopsy results Please follow up with your primary care doctor within 1 week. Return to the hospital if you experience recurrent or worsening symptoms. Assessment: See Discharge Summary.
--- NOTE | 2024-06-22 14:49 | MHC.CM.PN ---
Patient has been medically cleared for dc to home today, self care. CM met with Patient at bedside and addressed IMM with her (original was given to Patient and a copy has been placed on the chart).
== END 2024-06-22 15:52 | disposition home or self-care (01) | DRG 378 ==
LOC: HO.ED 17:01 → HO.EDOVER 19:26 → HO.IMC 19:54
PROVIDERS: Internal Medicine; Nurse Practitioner Family; Admitting Provider Student in an Organized Health Care Education/Training Program; Emergency Provider Emergency Medicine; PCP Pediatrics; Visit Provider Family Medicine
PROC: 0DB98ZX Excision of Duodenum, Via Natural or Artificial Opening Endoscopic, Diagnostic (ICD-10-PCS; CPT 45380; principal; 2024-06-22 10:00)
DX: K29.71 Gastritis, unspecified, with bleeding (principal); R65.10 Systemic inflammatory response syndrome (SIRS) of non-infectious origin without acute organ dysfunction; K29.81 Duodenitis with bleeding; K59.09 Other constipation; K44.9 Diaphragmatic hernia without obstruction or gangrene; K52.9 Noninfective gastroenteritis and colitis, unspecified; M79.7 Fibromyalgia; E87.6 Hypokalemia; I10 Essential (primary) hypertension; F17.210 Nicotine dependence, cigarettes, uncomplicated; Z71.6 Tobacco abuse counseling; Z79.899 Other long term (current) drug therapy; Z20.822 Contact with and (suspected) exposure to COVID-19
CPT/HCPCS: 45380; 45385; 43239; 0241U; 36415; 71250; 74177; 80048; 80053; 80076; 81001; 81025; 82272; 82947; 83036; 83605; 83690; 83735; 84702; 85025; 85027; 85610; 85652; 86140; 87040; 87493; 87507; 88305; 88313; 88342; 93005; 96361; 96374; 96375; 96376; 99222; 99285; J0696; J0737; J1171; J1200; J1836; J1956; J2003; J2060; J2270; J2405; J2470; J2704; J2765; J3480; J7120; Q9967

== ENCOUNTER → 2024-06-18 19:11 | Outpatient (BNV) | payer MEDICARE, MEDICAID, SELFPAY | PROVIDERS: Admitting Provider Student in an Organized Health Care Education/Training Program; Emergency Provider Emergency Medicine; PCP Pediatrics; Visit Provider Internal Medicine | DX: K29.70 Gastritis, unspecified, without bleeding (principal); K29.80 Duodenitis without bleeding; R19.7 Diarrhea, unspecified; K63.5 Polyp of colon; K62.1 Rectal polyp; K64.8 Other hemorrhoids | CPT/HCPCS: 43239; 45380; 45385; 99222 ==

== ENCOUNTER → 2024-06-18 19:11 | Outpatient (BNV) | payer MEDICARE, MEDICAID, SELFPAY | PROVIDERS: Admitting Provider Student in an Organized Health Care Education/Training Program; Emergency Provider Emergency Medicine; PCP Pediatrics; Visit Provider Student in an Organized Health Care Education/Training Program | DX: E11.9 Type 2 diabetes mellitus without complications (principal); E87.6 Hypokalemia; K52.9 Noninfective gastroenteritis and colitis, unspecified; K63.5 Polyp of colon; K29.80 Duodenitis without bleeding; K29.70 Gastritis, unspecified, without bleeding | CPT/HCPCS: 99223; 99232; 99239 ==

== ENCOUNTER 2024-06-29 11:08 | Emergency (ER) | payer MEDICARE, MEDICAID, SELFPAY ==
--- NOTE | ~2024-06-29 | XR_ITS ---
EXAMINATION: XR ABDOMEN KUB CLINICAL INDICATION: constipation COMPARISON: None available. TECHNIQUE: AP view of the abdomen. FINDINGS: Is moderate stool seen in colon without any significant distention. No radiopaque calculi seen in the abdomen. No organomegaly. There is mild dextroscoliosis dorsal lumbar junction. Rest of the visualized bones are grossly unremarkable. XR/XR KUB IMPRESSION: Moderate constipation. Electronically signed by: Osei Tovar MD 06/29/2024 12:51 PM EST
[2024-06-29 12:16] VITALS: BP 155/99; PULSE 92; RESP 20; TEMP 36.4; O2SAT 98; BMI 32.0
--- NOTE | 2024-06-29 12:19 | ED_ITS ---
HPI - General Adult General Chief complaint: Abdominal Pain Stated complaint: pcp sent for further evaluation Time Seen by Provider: 06/29/24 13:30 Source: patient and old records reviewed Mode of arrival: ambulatory Limitations: no limitations History of Present Illness ED Provider: FINA LANDRY narrative: 38 yo female with PMH of chronic constipation, bipolar, colitis, DM, HTN, fibromyalgia who was recently admitted here 06/18 - 06/22 for intractable n/v and abdominal pain workup included negative cdiff and GI panel, given 4 more days of outpatient augmentin, EGD and colonoscopy on 06/22 by Segundo 1. Normal esophagus (biopsy) 2. Gastritis (biopsy) 3. Small hiatal hernia 4. Duodenitis (biopsy) 5. Normal colon and terminal ileum mucosa (biopsy) 6. Total of 3 polyps removed 7. Internal hemorrhoids PATH results show no microscopic colitis, no h. pylori She presents again today with c/o ongoing L sided pain that never got better, took all of her medications, no n/v and did have hard BM today sent by her PCP given ongoing pain. No new changes states just touching the abdominal wall and skin hurt. No rash, no new complaints. She is eating and drinking but not as much as usual. She has appointment with GI on 07/14. No one started her on any medications. MD complaint: abdominal pain, constipation Onset (ago): week(s) (1+) Location: abdomen Radiation: non-radiation Severity: moderate Quality: dull and constant Pain Consistency: constant Relieving factors: none Exacerbating factors: other (palpations, movement) Associated symptoms: other (constipation) Treatments prior to arrival: none Related Data Home Medications ?Medication ?Instructions ?Recorded ?Confirmed cetirizine 10 mg tablet 10 mg PO DAILY 05/02/22 06/18/24 clonidine HCl 0.1 mg tablet 0.1 mg PO TID 05/02/22 06/18/24 valacyclovir 500 mg tablet 500 mg PO DAILY 10/05/22 06/18/24 tizanidine 4 mg tablet 4 mg PO BEDTIME 10/01/23 06/18/24 Previous Rx's ?Medication ?Instructions ?Recorded ondansetron HCl 8 mg tablet 8 mg PO Q8H PRN nausea and 06/17/24 vomiting #10 tabs amoxicillin 875 mg-potassium 1 tab PO BID #8 tabs 06/22/24 clavulanate 125 mg tablet glipizide 10 mg tablet, extended 10 mg PO DAILY #30 tabs 06/22/24 release 24 hr omeprazole 20 mg capsule,delayed 20 mg PO BID #60 caps 06/22/24 release potassium chloride 20 mEq 20 meq PO DAILY #30 tabs 06/22/24 tablet,extended release cyclobenzaprine 10 mg tablet 10 mg PO TID PRN muscle spasm #20 06/29/24 tabs docusate sodium 100 mg capsule 100 mg PO BID PRN constipation #30 06/29/24 (Colace) caps ondansetron 4 mg disintegrating 4 mg PO Q8H PRN nausea and 06/29/24 tablet vomiting #20 tabs polyethylene glycol 3350 17 17 g PO DAILY PRN constipation 06/29/24 gram/dose oral powder (Miralax) #119 grams sennosides 8.6 mg capsule (senna) 8.6 mg PO BEDTIME PRN constipation 06/29/24 #30 caps Allergies Allergy/AdvReac Type Severity Reaction Status Date / Time Sulfa (Sulfonamide Allergy Unknown RASH Verified 06/29/24 12:18 Antibiotics) [SULFA (SULFONAMIDE ANTIBIOTICS)] Review of Systems 2 Review of Systems: Constitutional : No Weight loss, No Fever, No Chills ENT/Mouth : No sore throat, No Rhinorrhea Eyes: No Swelling, No Redness Cardiovascular : No Chest Pain, No SOB, NoEdema Respiratory : No Cough, No Sputum, No Wheezing Gastrointestinal : no Nausea, no Vomiting, no Diarrhea, positive abdominal Pain, No Hematochezia, No Melena, pos constipation Genitourinary : No Dysuria, No Urinary Frequency, No Hematuria, No Urgency Musculoskeletal : No joint pain, No Myalgias, No Joint Swelling Skin : No Skin Lesions, No rash Neuro : No Weakness, No Numbness, No Dizziness, No Headache All other systems reviewed and are negative. [facility] Past Medical History Attestation statement: The following information was validated with the patient. Source: old records reviewed Medical History Diabetes Fibromyalgia Elevated cholesterol HTN (hypertension) Nipple pain External hemorrhoids Breast pain, right Bipolar 2 disorder Surgical History History of incision and drainage (10/05/22) History of lymph node excision History of carpal tunnel release of both wrists History of appendectomy History of cholecystectomy History of tonsillectomy Family History Family History Maternal Uncle Kidney cancer Maternal Grandfather Bladder cancer Social History Social History Household Members: Family Housing: House Do you presently have visiting nurse or other home services: No Alcohol intake: never Patient Tobacco Use Status: Current everyday Tobacco user Tobacco use type: Cigarette Cigarette Packs Per Day: 0.5 Cigarettes Per Day: 10.0 Years Smoked: sine age 12 e-Cigarette/Vaping Use: Never Used Second Hand Smoke Exposure: Yes Substance Use Type: Marijuana Advance Directives: No Advance Directives Information Provided: Yes service: No Sexual orientation: Don't Know Physical Exam ED Vital Signs: Vital Signs - 24 hr 06/29/24 12:16 Temperature 97.5 F Pulse Rate 92 Respiratory Rate 20 Blood Pressure 155/99 H Pulse Oximetry 98 Oxygen Delivery Method Room Air BMI result Body Mass Index 32.0 Appearance: Alert. Oriented X3. No acute distress. Eyes: Pupils equal, round and reactive to light. ENT: Pharynx normal. Neck: Normal inspection. Neck supple. CVS: Normal heart rate and rhythm. Pulses normal. Respiratory: No respiratory distress. Breath sounds normal. Abdomen: Soft and ttp with just light touch to LUQ no rash Skin: Skin warm and dry. Normal skin color. Normal skin turgor. Extremities: No lower extremity edema. Neuro: Oriented X 3. No motor deficit. No sensory deficit. Course Course Course Narrative: RME, this is a rapid medical exam performed by Tonny Chavez please refer to primary provider for complete H&P- 38-year-old female presents for evaluation of constipation. She was seen here 2 weeks ago for colitis and reports she has not had a bowel movement since [place]. Plan for labs, KUB Medical Decision Making Medical Decision Making MDM Narrative: 38 yo female with PMH of chronic constipation, bipolar, colitis, DM, HTN, fibromyalgia who was recently admitted here 06/18 - 06/22 for intractable n/v and abdominal pain here with persistent pain no change and constpiation has not taken any medications at this time abdomen is more ttp on skin she will get repeat labs and xray but given negative colonoscopy no new features such as n/v change in stools, GIB, change in pain suspect no acute issues - has GI appointment 07/14 and this has been going on since March will start on muscle relaxer and bowel regimen Differential Diagnosis Differential Diagnoses: The differential diagnosis associated with the presentation includes constipation, IBS, pancreatic insuffiency Admission/Observation Consideration of admission/observation: Escalation of care including admission/observation considered labs reassuring xray shows constipation she has no obstructive signs passed stool today, no change in pain, not vomiting, no fevers and no GIB symptoms Lab Data MDM Lab Attestation statement: I reviewed the patient's lab results. 06/29/24 13:04 06/29/24 13:04 Labs: Lab Results 06/29/24 Range/Units 13:04 WBC 11.1 H (4.8-10.8) X10*3/uL RBC 4.58 (4.20-5.50) X10*6/uL Hgb 14.7 (12.0-16.0) g/dl Hct 42.4 (37.0-47.0) % MCV 92.6 (80.0-98.0) fL MCH 32.1 (27.0-33.0) pg MCHC 34.7 (31.0-35.0) g/dl RDW 12.5 (11.0-16.0) % Plt Count 253 (160-400) X10*3/uL MPV 10.1 (9.4-12.3) fL Immature Gran % (Auto) 1.3 H (0.0-0.4) % Neut % (Auto) 68.1 (45-73) % Lymph % (Auto) 23.5 (20-40) % [place] % (Auto) 5.8 (2-11) % Eos % (Auto) 0.8 (0-4) % Baso % (Auto) 0.5 (0-2) % Lymph # (Auto) 2.6 (1.2-4.9) X10*3/uL [place] # (Auto) 0.6 (0.1-1.2) X10*3/uL Eos # (Auto) 0.1 (0.0-0.4) X10*3/uL Baso # (Auto) 0.1 (0.0-0.2) X10*3/uL Abs Immat Gran (auto) 0.14 H (0.00-0.03) X10*3/uL Absolute Neuts (auto) 7.5 (2.0-8.3) x10*3/uL Absolute Nucleated RBC 0.000 (0.0-0.012) X10*3/uL Nucleated RBC % (auto) 0.0 (0.0-0.2) /100WBC Sodium 139 (135-145) mmol/L Potassium 4.4 D (3.3-5.1) mmol/L Chloride 109 H (96-108) mmol/L Carbon Dioxide 23 (22-29) mmol/L Anion Gap 11 L (12-20) BUN 7 L (9-16) mg/dL Creatinine 0.68 (0.5-1.4) mg/dL Estim Creat Clear Calc 108.4 Estimated GFR > 60 Random Glucose 207 H (60-115) mg/dL Calcium 9.1 D (8.4-10.2) mg/dL Total Bilirubin 0.2 (0.0-1.0) mg/dL AST 31 (5-31) U/L ALT 39 H (0-31) U/L Alkaline Phosphatase 75 (39-117) U/L Total Protein 7.2 (6.5-8.0) g/dL Albumin 4.3 (3.5-5.0) g/dL Lipase 21 (8-78) U/L Beta HCG, Quant < 2 mIU/mL Urine Color Yellow Urine Appearance Clear Urine pH 7.5 (5.0-9.0) Ur Specific [place] 1.025 (1.005-1.025) Urine Protein Negative (Neg-Trace) mg/dL Urine Glucose (UA) >=1000 H (Negative) mg/dL Urine Ketones Negative (Negative) mg/dL Urine Blood Negative (Negative) Urine Nitrite Negative (Negative) Ur Leukocyte Esterase Negative (Negative) Urine RBC 0-2 (0-2) /HPF Urine WBC 0-5 (0-5) /HPF Ur Squamous Epith Cells 3-5 (0-2) /HPF Urine Bacteria Trace (None Seen) Hyaline Casts 0-2 (0-2) /LPF Independent Interpretation I performed an independent interpretation of an: Plain X-Ray (constipation) Radiology Impression Discussion of test interpretation with radiology: I have reviewed the radiologist's reading. Independent Historian Clinical information obtained from an independent historian. History obtained from or confirmed by: Spouse External Record Review External record reviewed: Inpatient record and Outpatient record Prescription Management I considered prescription management with: Other Discharge Plan Discharge Clinical Impression: Abdominal pain Qualifiers: Abdominal location: left upper quadrant Qualified Code(s): R10.12 - Left upper quadrant pain Constipation Qualifiers: Constipation type: chronic idiopathic constipation Qualified Code(s): K59.04 - Chronic idiopathic constipation Patient Disposition: Home, Self-Care Instructions: Constipation (ED), Abdominal Pain (ED) Additional Instructions: labs reassuring xray shows constipation please follow up with GI return for fevers, vomiting, unable to eat or drink, no bowel movement, change in pain or any other concerns stay hydrated if insurance doesn't cover colace, senna, miralax it is over the counter Prescriptions: New ondansetron 4 mg tablet,disintegrating 4 mg PO Q8H PRN (Reason: nausea and vomiting) Qty: 20 0RF senna 8.6 mg capsule 8.6 mg PO BEDTIME PRN (Reason: constipation) Qty: 30 0RF cyclobenzaprine 10 mg tablet 10 mg PO TID PRN (Reason: muscle spasm) Qty: 20 0RF docusate sodium [Colace] 100 mg capsule 100 mg PO BID PRN (Reason: constipation) Qty: 30 0RF polyethylene glycol 3350 [Miralax] 17 gram/dose powder 17 g PO DAILY PRN (Reason: constipation) Qty: 119 0RF No Action tizanidine 4 mg tablet 4 mg PO BEDTIME valacyclovir 500 mg tablet 500 mg PO DAILY ondansetron HCl 8 mg tablet 8 mg PO Q8H PRN (Reason: nausea and vomiting) Qty: 10 0RF omeprazole 20 mg capsule,delayed release(DR/EC) 20 mg PO BID Qty: 60 0RF amoxicillin-pot clavulanate 875-125 mg tablet 1 tab PO BID Qty: 8 0RF glipizide 10 mg tablet extended release 24hr 10 mg PO DAILY Qty: 30 0RF potassium chloride 20 mEq tablet extended release 20 meq PO DAILY Qty: 30 0RF clonidine HCl 0.1 mg tablet 0.1 mg PO TID cetirizine 10 mg tablet 10 mg PO DAILY Print Language: Japanese
[2024-06-29 13:10] LABS: MANUAL DIFF FLAG NO
[2024-06-29 13:13] LABS: Appearance Urine Clear; Color Urine Yellow; Glucose Urine UA >=1000 mg/dL (Negative); Leukocyte Esterase Urine Negative (Negative); Nitrite Urine Negative (Negative); PH 7.5 (5.0-9.0); Specific Gravity - Urine 1.025 (1.005-1.025); UMIC TRIGGER UACC YES; Urine Blood Negative (Negative); Urine Ketones Negative (Negative); Urine Protein Negative (Neg-Trace)
[2024-06-29 13:14] LABS: Basophils Absolute Auto 0.1 X10*3/uL (0.0-0.2); Basophils Percent Auto 0.5 % (0-2); Eosinophils Absolute Auto 0.1 X10*3/uL (0.0-0.4); Eosinophils Percent Auto 0.8 % (0-4); Hematocrit 42.4 % (37.0-47.0); Hemoglobin 14.7 g/dl (12.0-16.0); Imm Gran Abs Auto 0.14 X10*3/uL (0.00-0.03); Imm Gran Pct Auto 1.3 % (0.0-0.4); Lymphocytes Absolute Auto 2.6 X10*3/uL (1.2-4.9); Lymphocytes Percent Auto 23.5 % (20-40); Mean Corpuscular HGB Conc 34.7 g/dl (31.0-35.0); Mean Corpuscular Hemoglobin 32.1 pg (27.0-33.0); Mean Corpuscular Volume 92.6 fL (80.0-98.0); Mean Platelet Volume 10.1 fL (9.4-12.3); Monocytes Absolute Auto 0.6 X10*3/uL (0.1-1.2); Monocytes Percent Auto 5.8 % (2-11); Neutrophils Absolute Auto 7.5 x10*3/uL (2.0-8.3); Neutrophils Percent Auto 68.1 % (45-73); Platelet Count 253 X10*3/uL (160-400); Red Blood Count 4.58 X10*6/uL (4.20-5.50); Red Cell Distribution Width 12.5 % (11.0-16.0); White Blood Count 11.1 X10*3/uL (4.8-10.8)
[2024-06-29 13:15] LABS: Bacteria Urine Trace (None Seen); Hyaline Casts Urine 0-2 /LPF (0-2); RBC Urine 0-2 /HPF (0-2); WBC Urine 0-5 /HPF (0-5)
[2024-06-29 13:33] LABS: Alanine Aminotransferase 39 U/L (0-31); Albumin Level 4.3 g/dL (3.5-5.0); Alkaline Phosphatase 75 U/L (39-117); Anion Gap 11 (12-20); Aspartate Amino Transferase 31 U/L (5-31); Bilirubin Total 0.2 mg/dL (0.0-1.0); Blood Urea Nitrogen 7 mg/dL (9-16); Calcium 9.1 mg/dL (8.4-10.2); Carbon Dioxide 23 mmol/L (22-29); Chloride 109 mmol/L (96-108); Creatinine Clr Calc Pharmacy 108.4; Estimated Glomerular Filt Rate > 60; Glucose Random 207 mg/dL (60-115); HCG Quantitative < 2 mIU/mL; Lipase 21 U/L (8-78); Potassium 4.4 mmol/L (3.3-5.1); Sodium 139 mmol/L (135-145); Total Protein 7.2 g/dL (6.5-8.0)
[2024-06-29 14:26] VITALS: BP 00/00; PULSE 0; RESP 0; TEMP -17.7; TEMP 0; O2SAT 0
== END 2024-06-29 14:27 | disposition home or self-care (01) ==
PROVIDERS: Physician Assistant; Emergency Provider Emergency Medicine; PCP Pediatrics
DX: R10.12 Left upper quadrant pain (principal); K59.00 Constipation, unspecified; I10 Essential (primary) hypertension; E11.9 Type 2 diabetes mellitus without complications; Z79.899 Other long term (current) drug therapy
CPT/HCPCS: 36415; 74018; 80053; 81001; 83690; 84702; 85025; 99282; 99283

== ENCOUNTER → 2024-06-29 12:19 | Outpatient (BNV) | payer MEDICARE, MEDICAID, SELFPAY | PROVIDERS: PCP Pediatrics; Visit Provider Radiology Diagnostic Radiology | DX: K59.00 Constipation, unspecified (principal) | CPT/HCPCS: 74018 ==

== ENCOUNTER 2024-07-14 12:07 | Outpatient (AMB) | payer MEDICARE, MEDICAID, SELFPAY ==
--- NOTE | 2024-07-14 12:15 | A.OFFVIS_ITS ---
Vital Signs 07/14/24 12:20 Height 5 ft 2 in Weight 175 lb BMI 32.0 BP 157/76 H Blood Pressure Location Lt brachial Position Sitting Pulse 85 Intake Visit Reasons: s/p EGD and colon Intake Note: Patient follow up for EGD/Colonoscopy results. Patient cc: abdominal pain with bloating, nauseas, acid reflex with burning sensation and diarrhea. Also patient is complaing about swelling calf& ankle. Administration Assistant Required: No Accompanied by: Self / Same As Patient Allergies Sulfa (Sulfonamide Antibiotics) [SULFA (SULFONAMIDE ANTIBIOTICS)] Allergy (Unknown, Verified 07/14/24 12:11) RASH HPI HPI s/p EGD and colon : Details: Assessment & Plan (1) Chronic idiopathic constipation: Code(s): K59.04 - Chronic idiopathic constipation Category: Medical (2) Abdominal pain: Code(s): R10.9 - Unspecified abdominal pain Category: Medical Plan NO BM with Linzess 72mcg, because she has used Mag citrate in past w/o result, will move to 290 Linzess. She has, at least, stopped throwing up. For this she credits the Reglan which we will continue. She is on the Reglan 10 mg 4 times a day now increased from 5 mg since she has tolerated it without any adverse effects. ROV after CT scan 01/12 Medications: New linaclotide (Linzess) Please dispense 290cmg dose NOT 145mcg 290 mcg PO QAM 30 caps 6RF 30 days K59.04 - Chronic idiopathic constipation EGD/ COLONOSCOPY 06/22/24 EGD Findings:? * Esophagus:? Normal esophageal mucosa was noted. The Z-line was at 39 cm. Cold forceps biopsies were taken from middle and lower esophagus for histology. * Stomach:? Erythema and scant heme noted in the antrum. Retroflexion was performed in the cardia that showed Hill grade II hiatal hernia. Random cold forceps biopsies were taken from the stomach. * Duodenum:? Erythema, edema and erosions noted in the duodenal bulb. Remaining duodenal mucosa normal to the extent examined. Cold forceps biopsies were taken from the duodenal bulb and 2nd portion of the duodenum to rule out c eliac sprue. Findings: Mucosa: Normal colon and terminal ileum mucosa. Cold forceps biopsies were taken from R and L side of the colon to rule out microscopic colitis. Protruding lesions: * 1 sessile polyps of size 2 mm in the cecum. Cold forceps polypectomy was performed. The polyp was completely removed and retrieved. * 1 sessile polyps of size 4 mm in the sigmoid colon. Cold forceps polypectomy was performed. The polyp was completely removed and retrieved. * 1 sessile polyps of size 6 mm in the rectum. Cold snare polypectomy was performed. The polyp was completely removed and retrieved. * Small internal hemorrhoids without stigmata of recent bleeding. Impression: 1. Normal esophagus (biopsy) 2. Gastritis (biopsy) 3. Small hiatal hernia 4. Duodenitis (biopsy) 5. Normal colon and terminal ileum mucosa (biopsy) 6. Total of 3 polyps removed 7. Internal hemorrhoids Recommendations:?? * Follow-up path results * Avoid NSAIDs * H Pylori treatment if biopsies + * Colonoscopy in 3 years if all polyps are adenomas otherwise can resume asymptomatic colorectal ca screening at age 44. * Will set up outpatient follow up with her JOSE Breen NP BIOPSY Received: 06/22/24 Diagnosis A. Colon, right side, biopsy: Colonic mucosa within normal limits; negative for active, chronic or microscopic colitis. B. Colon, cecum, polypectomy: Polypoid colonic mucosa noted; negative for a hyperplastic or neoplastic process. C. Colon, left side, biopsy: Colonic mucosa within normal limits; negative for active, chronic or microscopic colitis. D. Colon, sigmoid, polypectomy: Hyperplastic polyp. E. Rectum, polypectomy: Hyperplastic polyp. F. Duodenum, biopsy: Duodenal mucosa within normal limits; preserved villous architecture and no increase in intraepithelial lymphocytes. G. Stomach, random, biopsy: Gastric antral mucosa within normal limits; negative for Helicobacter pylori, intestinal metaplasia and dysplasia. H. Esophagus, lower, biopsy: Squamous mucosa within normal limits; negative for inflammation (including intraepithelial eosinophils), fungal organisms, and intestinal metaplasia. I. Esophagus, middle, biopsy: Squamous mucosa within normal limits; negative for inflammation (including intraepithelial eosinophils), fungal organisms, and intestinal meta plasia. CT ABDOMEN AND PELVIS 06/16/24 FINDINGS: LUNG BASES: The visualized lung bases are unremarkable. Suspect small hiatal hernia LIVER, GALLBLADDER, AND BILIARY TREE: The liver is mildly enlarged in size measuring 18 cm in craniocaudad length. It is normal shape, and attenuation. No focal hepatic lesion or biliary ductal dilatation is present. The gallbladder is unremarkable with no evidence of radiopaque gallstones, gallbladder wall thickening, or obvious pericholecystic inflammatory changes. PANCREAS: Unremarkable. SPLEEN: Unremarkable. ADRENAL GLANDS: Unremarkable. KIDNEYS AND URETERS: The kidneys are normal in size, shape, and attenuation. No hydronephrosis, hydroureter, or calculi seen. No perinephric stranding. BLADDER: Unremarkable. GASTROINTESTINAL TRACT: There is scattered stool and gas seen in colon without distention. There is diffuse mural thickening involving the entire colon most prominent in the distal descending and sigmoid region. No pericolic fat stranding seen. The small bowel loops are normal caliber. Appendix is not visualized. Stomach is nondistended. The stomach is fluid-filled and minimally distended. ABDOMINAL WALL: No significant hernia is appreciated. LYMPH NODES: Normal. VASCULAR: Unremarkable. PELVIC VISCERA: The uterus is anteverted. There is 1.5 cm irregular shaped left corpus luteal cyst. No free fluid or free air seen. OSSEOUS STRUCTURES: There is mild to moderate posterior spondylosis and bridging osteophyte L5-S1 disc level. CT/CT abdomen pelvis w IV con IMPRESSION: 1. Diffuse mural thickening involving the entire colon most prominent in the distal descending and sigmoid region. No pericolic fat stranding seen. Findings are suggestive of colitis. 2. Mild hepatomegaly. 3. Left corpus luteal cyst. 4. Suspect small hiatal hernia CORRESPONDENCE On 06/22/24 @ 10:38 Yanni Louise Wrote To Jamshid noted Yanni Louise removed from item. On 06/19/24 @ 16:22 Sugey Raymond Wrote To Breen (2) ok thank you - she is in house now, On 06/19/24 @ 15:04 Yanni Louise Wrote To Sugey Raymond looks like she called and canceled procedure On 06/19/24 @ 13:54 Sugey Raymond Wrote To Yanni Louise hi - wanted to check if we know whether the pt herself canceled/no-showed her procedure or was jim/canceled by OR? TODAY'S VISIT Patient was admitted to the hospital 11/2023 for infectious gastroenteritis and treated by Dr. Belén vaca. She has always had left-sided abdominal pain but suddenly in May it greatly worsened and she developed severe nausea and vomiting diet and diarrhea. The vomiting was so severe that she would actually drink water so that she did not have to dry heave. She presented to the ER and was admitted. She was treated with antibiotics and discharged with Augmentin and when she was 1st discharged around June 22 she continued to have diarrhea. However t his seems to have normalized somewhere around July 01. Then yesterday the abdominal pain returned in severity and she is again having diarrhea. There are no new medications, and she has been trying to eat very cleanly and avoiding greasy foods since she is status post cholecystectomy. We do go over the EGD and colonoscopy and all of the polyps were not adenomas and there was some erosive duodenitis with no specific biopsy findings. There certainly was no H pylori. She was discharged on omeprazole 20 mg twice a day. I think I would like to change this to pantoprazole given the severity of the erosions and to avoid the possible class side effect of diarrhea. She has been holding her Linzess and her Colace and her MiraLax which is appropriate. While there was some possible suggestion of colitis on the CT scan this was not borne out in the colonoscopy that was performed just a few days later so I think this might have been from underdistention of the contrast secondary to nausea and vomiting. All of this really is quite mysterious. The only left-sided pathology was an ovarian cyst. We already did a gastric emptying study recently that was normal. We had stopped metoclopramide because she actually did better on Zofran in terms of the nausea and vomiting. She has also had several negative CT scans and ultrasounds. For now we are going to try to get an x-ray of the thoracic spine since she has known arthritis of the lumbar spine because sometimes the severe pain that she has can feel like a ?ripping/tearing in the muscles? otherwise it feels like someone is using a Taser inside her colon especially between her ribs. The pain tends to run from the midline slightly to the left abdomen radiating to the umbilicus and then around to the left flank. It is slightly worse if she lays on that side and slightly better with heat but does not seem to be affected by eating or moving her bowels. We are going to start her on a trial of dicyclomine and get an x-ray of the thoracic spine. I will also get if fecal calprotectin and a pancreatic a last taste stools study. All of this really is puzzling to me and if I can not find the answer I may refer her to 1 of our physicians for a 2nd opinion. Return office visit in 4 weeks to evaluate the pantoprazole and the dicyclomine. She asks me to extend her percocet rx which I decline because of the deleterious effect on the colon. I would rather see how she does with the bentyl. [facility] Medical History (Updated 07/14/24 @ 12:55 by CHERI Purvis) Chronic idiopathic constipation Family history of Crohn's disease Facial infection Hypokalemia Duodenitis Esophagitis Gastritis Colon polyps Diabetes Fibromyalgia Elevated cholesterol HTN (hypertension) Nipple pain External hemorrhoids Breast pain, right Bipolar 2 disorder Surgical History (Updated 07/14/24 @ 11:26 by CHERI Purvis) H/O esophagogastroduodenoscopy H/O colonoscopy History of incision and drainage (10/05/22) History of lymph node excision History of carpal tunnel release of both wrists History of appendectomy History of cholecystectomy History of tonsillectomy Family History Maternal Uncle Kidney cancer Maternal Grandfather Bladder cancer Social History Household Members: Family Housing: House Do you presently have visiting nurse or other home services: No Alcohol intake: never Patient Tobacco Use Status: Current everyday Tobacco user Tobacco use type: Cigarette Cigarette Packs Per Day: 0.5 Cigarettes Per Day: 10.0 Years Smoked: sine age 12 e-Cigarette/Vaping Use: Never Used Second Hand Smoke Exposure: Yes Substance Use Type: Marijuana service: No Sexual orientation: Don't Know Review of Systems Const Denies fatigue, Denies fever(s), Denies night sweats, Denies poor appetite and Denies weight loss ENT Reports Normal hearing present, Denies dental pain, Denies dysphagia, Denies hearing loss, Denies mouth pain, Denies odynophagia, Denies throat swelling, Denies tongue swelling and Reports other (Dentition adequate) Card Reports no additional complaints Resp Reports no additional complaints GI Details: Reports abdominal pain, Denies melena, Reports bloating, Denies hematochezia, Denies constipation, Denies GI cramping, Denies dysphagia, Denies excessive flatus, Denies early satiety, Reports heartburn, Reports diarrhea, Reports nausea, Denies odynophagia, Reports vomiting and Denies hematemesis Musc Reports back pain Skin/Breast Denies pruritus, Denies lesions, Denies rash and Denies jaundice Neuro Reports Normal hearing present and Denies Abnormal speech present Endo Denies fatigue Aller/Immun Denies throat swelling and Denies tongue swelling Physical Exam Const General: cooperative, no acute distress, well developed and well groomed Nutritional Appearance: well nourished and obese Orientation/consciousness: oriented to person, oriented to place and oriented to time Limitations: No language barrier HEENT Head: Yes normocephalic and Yes atraumatic Eyes General: appearance normal, both eyes and all related structures Pupils: Equal, round and reactive pupils present Neck Neck: Yes normal visual inspection and Yes no lymphadenopathy Thyroid: Thyroid normal Resp Effort & Inspection: normal respiratory effort and able to speak in complete sentences Auscultation: clear to auscultation bilaterally Cardio Rate: regular rate Rhythm: regular rhythm Heart sounds: Normal, physiologic split S2 sound present Peripheral pulses: radial pulses present and posterior tibial pulses present GI Inspection: No distended, No Abdominal panniculus present and Yes obesity Palpation (GI): Soft to palpation, Tenderness to palpation present (GI) in the LUQ and periumbilically, no guarding, not rigid and No hepatosplenomegaly present Percussion: Yes normal to percussion Auscultation: normal bowel sounds Rectal Exam - Female: deferred Other: Left flank pain Skin General skin exam: no rashes or lesions noted, turgor normal, skin not dry, no jaundice, No spider nevi and no striae Rashes: no rashes Nails: normal Neuro General: oriented to person, oriented to place and oriented to time Cranial nerves: Yes Equal, round and reactive pupils present and Yes Normal hearing present Speech: No Abnormal speech present Extrem General: Yes normal to inspection, No clubbing, No cyanosis and No edema Psych Appearance: grossly normal and well kempt Mental Status: mental status grossly normal Speech and movement: Normal speech and movement present Affect: normal affect Attitude: cooperative Thought process: Normal thought process present and not confabulating Thought content: Normal thought content present Insight: Fair insight present (Psych) and Limited insight present (Psych) Judgement: Fair judgement present (Psych) and Limited judgement present (Psych) Results Reviewed Results Reviewed: EGD/ COLONOSCOPY 06/22/24 EGD Findings:? * Esophagus:? Normal esophageal mucosa was noted. The Z-line was at 39 cm. Cold forceps biopsies were taken from middle and lower esophagus for histology. * Stomach:? Erythema and scant heme noted in the antrum. Retroflexion was perf ormed in the cardia that showed Hill grade II hiatal hernia. Random cold forceps biopsies were taken from the stomach. * Duodenum:? Erythema, edema and erosions noted in the duodenal bulb. Remaining duodenal mucosa normal to the extent examined. Cold forceps biopsies were taken from the duodenal bulb and 2nd portion of the duodenum to rule out celiac sprue. Findings: Mucosa: Normal colon and terminal ileum mucosa. Cold forceps biopsies were taken from R and L side of the colon to rule out microscopic colitis. Protruding lesions: * 1 sessile polyps of size 2 mm in the cecum. Cold forceps polypectomy was performed. The polyp was completely removed and retrieved. * 1 sessile polyps of size 4 mm in the sigmoid colon. Cold forceps polypectomy was performed. The polyp was completely removed and retrieved. * 1 sessile polyps of size 6 mm in the rectum. Cold snare polypectomy was performed. The polyp was completely removed and retrieved. * Small internal hemorrhoids without stigmata of recent bleeding. Impression: 1. Normal esophagus (biopsy) 2. Gastritis (biopsy) 3. Small hiatal hernia 4. Duodenitis (biopsy) 5. Normal colon and terminal ileum mucosa (biopsy) 6. Total of 3 polyps removed 7. Internal hemorrhoids Recommendations:?? * Follow-up path results * Avoid NSAIDs * H Pylori treatment if biopsies + * Colonoscopy in 3 years if all polyps are adenomas otherwise can resume asymptomatic colorectal ca screening at age 44. * Will set up outpatient follow up with her JOSE Quirogaers DARIO BIOPSY Received: 06/22/24 Diagnosis A. Colon, right side, biopsy: Colonic mucosa within normal limits; negative for active, chronic or microscopic colitis. B. Colon, cecum, polypectomy: Polypoid colonic mucosa noted; negative for a hyperplastic or neoplastic process. C. Colon, left side, biopsy: Colonic mucosa within normal limits; negative for active, chronic or microscopic colitis. D. Colon, sigmoid, polypectomy: Hyperplastic polyp. E. Rectum, polypectomy: Hyperplastic polyp. F. Duodenum, biopsy: Duodenal mucosa within normal limits; preserved villous architecture and no increase in intraepithelial lymphocytes. G. Stomach, random, biopsy: Gastric antral mucosa within normal limits; negative for Helicobacter pylori, intestinal metaplasia and dysplasia. H. Esophagus, lower, biopsy: Squamous mucosa within normal limits; negative for inflammation (including intraepithelial eosinophils), fungal organisms, and intestinal metaplasia. I. Esophagus, middle, biopsy: Squamous mucosa within normal limits; negative for inflammation (including intraepithelial eosinophils), fungal organisms, and intestinal metaplasia. CT ABDOMEN AND PELVIS 06/16/24 FINDINGS: LUNG BASES: The visualized lung bases are unremarkable. Suspect small hiatal hernia LIVER, GALLBLADDER, AND BILIARY TREE: The liver is mildly enlarged in size measuring 18 cm in craniocaudad length. It is normal shape, and attenuation. No focal hepatic lesion or biliary ductal dilatation is present. The gallbladder is unremarkable with no evidence of radiopaque gallstones, gallbladder wall thickening, or obvious pericholecystic inflammatory changes. PANCREAS: Unremarkable. SPLEEN: Unremarkable. ADRENAL GLANDS: Unremarkable. KIDNEYS AND URETERS: The kidneys are normal in size, shape, and attenuation. No hydronephrosis, hydroureter, or calculi seen. No perinephric stranding. BLADDER: Unremarkable. GASTROINTESTINAL TRACT: There is scattered stool and gas seen in colon without distention. There is diffuse mural thickening involving the entire colon most prominent in the distal descending and sigmoid region. No pericolic fat stranding seen. The small bowel loops are normal caliber. Appendix is not visualized. Stomach is nondistended. The stomach is fluid-filled and minimally distended. ABDOMINAL WALL: No significant hernia is appreciated. LYMPH NODES: Normal. VASCULAR: Unremarkable. PELVIC VISCERA: The uterus is anteverted. There is 1.5 cm irregular shaped left corpus luteal cyst. No free fluid or free air seen. OSSEOUS STRUCTURES: There is mild to moderate posterior spondylosis and bridging osteophyte L5-S1 disc level. CT/CT abdomen pelvis w IV con IMPRESSION: 1. Diffuse mural thickening involving the entire colon most prominent in the distal descending and sigmoid region. No pericolic fat stranding seen. Findings are suggestive of colitis. 2. Mild hepatomegaly. 3. Left corpus luteal cyst. 4. Suspect small hiatal hernia Laboratory Tests 08/06/23 06/16/24 06/18/24 11:00 17:32 17:01 WBC 17.3 H Hgb 16.0 Hct 45.8 Plt Count 325 Immature Gran % (Auto) 0.7 H Neut % (Auto) 83.7 H Potassium Estimated GFR Total Bilirubin AST ALT Alkaline Phosphatase Lipase Urine Protein 300 (3+) H Urine Glucose (UA) >=1000 H Stool Calprotectin 9 06/19/24 06/20/24 06/22/24 06:53 06:55 06:19 WBC 11.2 H 8.4 Hgb Hct Plt Count Immature Gran % (Auto) Neut % (Auto) Potassium 2.8 L* Estimated GFR > 60 Total Bilirubin AST ALT Alkaline Phosphatase Lipase Urine Protein Urine Glucose (UA) Stool Calprotectin 06/29/24 13:04 WBC 11.1 H Hgb Hct Plt Count Immature Gran % (Auto) 1.3 H Neut % (Auto) Potassium Estimated GFR Total Bilirubin 0.2 AST 31 ALT 39 H Alkaline Phosphatase 75 Lipase 21 Urine Protein Urine Glucose (UA) Stool Calprotectin Review of Dr. Melissa is inpatient consult HPI Reason for consult: Colitis 38 y.o F with PMH of who presented to the hospital yest for abd pain, vomiting and diarrhea x 5 days. Pt was seen in ER initially on 06/16 for similar symptoms and at that time was managed as infectious gastroenteritis with outpatient Abx. However pt reports she has not been able to tolerate any PO including the antibiotics and therefore returned to the hospital. Partner recalls pt had outside food (pot roast) on saturday and may have triggered the sx. Pt also reports background of chronic GI sx including intermittent R sided pain which has been ongoing x 3 months and feels like a rib pain to her since it gets worse with deep breathign or movements. In addition, also has frequent N/V which gets better with smoking marijuana. Diarrhea reported with this ongoing episode but at baseline BMs fluctuate between constipation x 3-4 days vs loose watery BMs 3-4 times a day. Pt was supposed to undergo outpatient endoscopy in Mar but lost her grandfather around that time and had to cancel that appointment. Labs with leukocytpsis and hypokalemia keeping wiht infectious colitis. Stool studies negative. Imaging with pancolonic wall thickening. Plan The recent acute episode of abd pain, N,V,D appears to be in the setting of food related GI illness. However given background of similar sx ongoing x 3 months with + findings on CT scan will proceed with inpatient colonscopy. Ddx for colitis includes infectious, ischemic, inflammatory. An upper endoscopy will eb done at esame time for ongoing N/V and inability to tolerate PO x week. Plan: - EGD/colo tentatively on 06/22 - Diet as tolerated today and tmrw - Clear liquid diet 06/21 - NPO after midnight for procedures on 06/22 - PEG ordered - Consider ct chest for severe rib pain reported by the pt Assessment & Plan Assessment & Plan (1) Left sided abdominal pain: Code(s): R10.9 - Unspecified abdominal pain Category: Medical (2) Erosive gastritis: Code(s): K29.60 - Other gastritis without bleeding Category: Medical (3) Diarrhea: Code(s): R19.7 - Diarrhea, unspecified Category: Medical (4) Nausea and vomiting: Code(s): R11.2 - Nausea with vomiting, unspecified Category: Medical (5) Back pain: Code(s): M54.9 - Dorsalgia, unspecified Category: Medical Plan Patient was admitted to the hospital 11/2023 for infectious gastroenteritis and treated by Dr. Belén vaca. She has always had left-sided abdominal pain but suddenly in May it greatly worsened and she developed severe nausea and vomiting diet and diarrhea. The vomiting was so severe that she would actually drink water so that she did not have to dry heave. She presented to the ER and was admitted. She was treated with antibiotics and discharged with Augmentin and when she was discharged around June 22 she continued to have diarrhea. However this seems to have normalized somewhere around July 01. Then yesterday the abdominal pain returned in severity and she is again having diarrhea. There are no new medications, and she has been trying to eat very cleanly and avoiding greasy foods since she is status post cholecystectomy. We do go over the EGD and colonoscopy and all of the polyps were not adenomas and there was some erosive duodenitis with no specific biopsy findings. There certainly was no H pylori. She was discharged on omeprazole 20 mg twice a day. I think I would like to change this to pantoprazole given the severity of the erosions and to avoid the possible class side effect of diarrhea. She has been holding her Linzess and her Colace and her MiraLax which is appropriate. While there was some possible suggestion of colitis on the CT scan this was not borne out in the colonoscopy that was performed just a few days later so I think this might have been from underdistention of the contrast secondary to nausea and vomiting. All of this really is quite mysterious. The only left-sided pathology was an ovarian cyst. We already did a gastric emptying study recently that was normal. We had stopped metoclopramide because she actually did better on Zofran in terms of the nausea and vomiting. She has also had several negative CT scans and ultrasounds. For now we are going to try to get an x-ray of the thoracic spine since she has known arthritis of the lumbar spine because sometimes the severe pain that she has can feel like a ?ripping/tearing in the muscles? otherwise it feels like someone is using a Taser inside her colon especially between her ribs. The pain tends to run from the midline slightly to the left abdomen radiating to the umbilicus and then around to the left flank. It is slightly worse if she lays on that side and slightly better with heat but does not seem to be affected by eating or moving her bowels. We are going to start her on a trial of dicyclomine and get an x-ray of the thoracic spine. I will also get if fecal calprotectin and a pancreatic a last taste stools study. All of this really is puzzling to me and if I can not find the answer I may refer her to 1 of our physicians for a 2nd opinion. Return office visit in 4 weeks to evaluate the pantoprazole and the dicyclomine. She asks me to extend her percocet rx which I decline because of the deleterious effect on the colon. I would rather see how she does with the bentyl. Orders: Orders Calprotectin, Fecal Today R19.7 - Diarrhea, unspecified Pancreatic Elastase-1 Today R19.7 - Diarrhea, unspecified XR thoracic spine 2V Today M54.9 - Dorsalgia, unspecified Medications: New dicyclomine 20 mg PO QID 30 days 120 tabs 3RF R10.9 - Unspecified abdominal pain pantoprazole (Protonix) 40 mg PO BID 30 days 60 tabs 1RF Refilled ondansetron 4 mg PO Q8H PRN 60 tabs 6RF nausea and vomiting R11.2 - Nausea with vomiting, unspecified Discontinued ondansetron HCl Discontinued Reason: Doctor's Order 8 mg PO Q8H PRN 10 tabs 0RF nausea and vomiting amoxicillin-pot clavulanate 875-125 mg Discontinued Reason: Patient Completed Course 1 tab PO BID 8 tabs 0RF omeprazole Discontinued Reason: Doctor's Order 20 mg PO BID 60 caps 0RF cyclobenzaprine Discontinued Reason: Doctor's Order 10 mg PO TID PRN 20 tabs 0RF muscle spasm On Hold sennosides (senna) Hold Comment: Doctor's Order 8.6 mg PO BEDTIME PRN 30 caps 0RF constipation docusate sodium (Colace) Hold Comment: Doctor's Order 100 mg PO BID PRN 30 caps 0RF constipation polyethylene glycol 3350 (Miralax) Hold Comment: Doctor's Order 17 grams PO DAILY PRN 119 grams 0RF constipation Coding Level of Care Code Est Pt Level 4 (75354) Diagnoses Left sided abdominal pain R10.9 Erosive gastritis K29.60 Diarrhea R19.7 Nausea and vomiting R11.2 Back pain M54.9 Time Spent (min) 38
[2024-07-14 12:20] VITALS: BP 157/76; PULSE 85; BMI 32.0
== END 2024-07-14 12:52 | disposition home or self-care (01) ==
PROVIDERS: PCP Pediatrics; Visit Provider Nurse Practitioner
DX: R10.9 Unspecified abdominal pain (principal); K29.60 Other gastritis without bleeding; R19.7 Diarrhea, unspecified; R11.2 Nausea with vomiting, unspecified; M54.9 Dorsalgia, unspecified
CPT/HCPCS: 99214

== ENCOUNTER → 2024-07-14 12:07 | Outpatient (BNVA) | payer MEDICARE, MEDICAID, SELFPAY | PROVIDERS: PCP Pediatrics; Visit Provider Nurse Practitioner | DX: K29.60 Other gastritis without bleeding (principal); K59.04 Chronic idiopathic constipation; K21.9 Gastro-esophageal reflux disease without esophagitis; R10.9 Unspecified abdominal pain; R11.0 Nausea; R19.7 Diarrhea, unspecified; R11.2 Nausea with vomiting, unspecified; M54.9 Dorsalgia, unspecified | CPT/HCPCS: 99212 ==

== ENCOUNTER 2024-08-27 14:02 | Outpatient (REF) | payer MEDICARE, MEDICAID, SELFPAY ==
--- NOTE | ~2024-08-27 | XR_ITS ---
CLINICAL HISTORY: M54.9 - Dorsalgia, unspecified 3 views thoracic spine Comparison: None Findings: The vertebral body heights are preserved. Small anterior vertebral body osteophytes. Intervertebral disc spaces are maintained. No fractures are present. Pedicles intact. Paraspinal lines are normal. Normal thoracic kyphosis. Mild levoscoliosis. Normal bone mineralization. Impression: 1. No compression fractures or listhesis. 2. Mild levoscoliosis. This document has been electronically signed by: Praveen Sherwood MD on 08/28/2024 12:54:00
--- OUTSIDE RECORDS SUMMARY | 2024-08-27 16:58 | XMS_ITS | Encounter Summary ---
Author Organization [employer] Address [address] [facility] 7 [place] [address] Care Team Providers Care Motor Grader Rough Grade Name Role Phone Obdulia Elliott MD Primary Care Provider [phone] Reason for Visit * Reason Onset Date Comments Med Refill 08/27/2024 Encounter Details Date Type Department Care Team ([facility] st Contact Info) Description 08/27/2024 Refill [facility] MED & PEDS [address] [place] [address] Marci Valiente MD [address] [place] [address] Chronic bilateral low back pain without sciatica Social History Tobacco Use Types Packs/Day Years Used Date Smoking Tobacco: Every Day Cigarettes Passive Smoke Exposure: Current Smokeless Tobacco: Never Depression Answer Date Recorded Patient Health Questionnaire-9 Score 8 02/20/2024 Patient Health Questionnaire-9 Score 8 02/20/2024 Last PHQ-9: Questionnaire Data Not on file 0 02/20/2024 Housing Stability Answer Date Recorded What is your housing situation today? I have rahel james 04/16/[address] you li ve. Do you have problems with any of the following? None of the above 04/16/2023 Food Insecurity Answer Date Recorded Within the past 12 months, y ou worried that your food would run out before you got money to buy more: Never True 08/14/2023 Within the past 12 months,th e food you bought just didn't last and you didn't have enough money to get more: Never True Transportation Answer Date Recorded In the past 12 months, has l ack of transportation kept you from medical appts, meetings, work or from getting things needed for daily living? No 04/16/2023 Utilities Answer Date Recorded In the past 12 months, has t he electric, gas, oil or water company threatened to shut off services in your home? No 04/16/2023 Depression Answer Date Recorded Patient Health Questionnaire-2 Score 2 02/20/2024 Comments Unknown Sex and Gender Information Value Date Recorded Sex Assigned at Female 04/30/2022 10:20 AM EDT Legal Sex Female 10:20 AM EDT Gender Identity Female 04/30/2022 10:20 AM EDT Sexual Orientation Straight 04/30/2022 10 :20 AM EDT documented as of this encounter Plan of Treatment Upcoming Encounters Date Type Department Care Team ([facility] st Contact Info) Description 09/10/2024 11:30 AM EDT Office Visit [facility] MED & PEDS [address] [place] [address] Obdulia Elliott MD [address] [place] [address] documented as of this encounter Visit Diagnoses Diagnosis Chronic bilateral low back pain without sciatica documented in this encounter Additional Health Concerns Assessment Noted Time PHQ-9 Depression Total Score: 8 02/20/20 24 11:38 AM EDT documented as of this encounter Care Teams Motor Grader Rough Grade Relationship Specialty Start Date End Date Obdulia Elliott MD [address] [place] [address] PCP - General Family Medicine 07/01/18 documented as of this encounter
--- OUTSIDE RECORDS SUMMARY | 2024-08-27 16:58 | XMS_ITS | Encounter Summary ---
Author Organization [employer] Address [address] [place] [address] Care Team Providers Care Inshore Undersea Warfare Officer Name Role Phone Obdulia Elliott MD Primary Care Provider [phone] Reason for Visit * Reason Comments Med Refill Encounter Details Date Type Department Care Team ([facility] Contact Info) Description 02/14/2023 Refill [facility] [address] [place], [place] [phone] Florinda Thomas FNP Social History Tobacco Use Types Packs/Day Years Used Date Smoking Tobacco: Every Day Cigarettes Passive Smoke Exposure: Current Smokeless Tobacco: Never Comments Unknown Sex and Gender Information Value Date Recorded Sex Assigned at Female 04/30/2022 10:20 AM EDT Legal Sex Female 10:20 AM EDT Gender Identity Female 04/30/2022 10:20 AM EDT Sexual Orientation Straight 04/30/2022 10 :20 AM EDT documented as of this encounter Plan of Treatment Upcoming Encounters Date Type Department Care Team (Late Contact Info) Description 09/10/2024 11:30 AM EDT Office Visit [facility] MED & PEDS [address] [place] [address] Obdulia Elliott MD [address] [place] [address] documented as of this encounter Visit Diagnoses Not on filedocumented in this encounter Care Teams Inshore Undersea Warfare Officer Relationship Specialty Start Date End Date Obdulia Elliott MD [address] [place] [address] PCP - General Family Medicine 07/01/18 documented as of this encounter
--- OUTSIDE RECORDS SUMMARY | 2024-08-27 16:58 | XMS_ITS | Encounter Summary ---
Author Organization [employer] Address [address] [facility] 7t [place] [address] Care Team Providers Care Producer Assistant Name Role Phone Obdulia Elliott MD Primary Care Provider [phone] Encounter Details Date Type Department Care Team ([facility] Contact Info) Description 08/26/2024 Telephone [facility] MED & PEDS [address] [place], [place] [phone] Elsi Stephen RN [address] [place], [place] Social History Tobacco Use Types Packs/Day Years [...] AM EDT documented as of this encounter Miscellaneous Notes * Telephone Encounter - Elsi Stephen RN - 08/26/2024 2:03 PM EST TC back to pt regarding message again. Pt stated she was told by PCP on 08/25/24 that she was going to get one more refill of Oxycodone states she tried Lyrica before and it gives her stomachache. Please advise. documented in this encounter Plan of Treatment Upcoming Encounters Date Type Department Care Team (Late st Contact Info) Description 09/10/2024 11:30 AM EDT Office Visit [facility] MED & PEDS [address] [place] [address] Obdulia Elliott MD [address] [place] [address] documented as of this encounter Visit Diagnoses Not on filedocumented in this encounter Additional Health Concerns Assessment Noted Time PHQ-9 Depression Total Score: 8 02/20/20 24 11:38 AM EDT documented as of this encounter Care Teams Producer Assistant Relationship Specialty Start Date End Date Obdulia Elliott MD [address] [place] [address] PCP - General Family Medicine 07/01/18 documented as of this encounter
--- OUTSIDE RECORDS SUMMARY | 2024-08-27 16:58 | XMS_ITS | Encounter Summary ---
Author Organization [employer] Address [address] [place] [address] [place] [address] Care Team Providers Care Blasting Machine Operator Name Role Phone Obdulia Elliott MD Primary Care Provider [phone] Reason for Visit * Reason Comments Med Refill Encounter Details Date Type Department Care Team ([facility] Contact Info) Description 11/23/2022 Refill [facility] [address] [place] [address] Obdulia Elliott MD [address] [place] [address] Social History Tobacco Use Types Packs/Day Years [...] Description 09/10/2024 11:30 AM EDT Office Visit [facility] MED & PEDS [address] [place], [place] [phone] Obdulia Elliott MD [address] [place] [address] documented as of this encounter Visit Diagnoses Not on filedocumented in this encounter Care Teams Blasting Machine Operator Relationship Specialty Start Date End Date Obdulia Elliott MD [address] [place] [address] PCP - General Family Medicine 07/01/18 documented as of this encounter
--- OUTSIDE RECORDS SUMMARY | 2024-08-27 16:58 | XMS_ITS | Encounter Summary ---
Author Organization [employer] Address [address] [facility] 7 [place] [address] Care Team Providers Care Dixonac Operator Name Role Phone Obdulia Elliott MD Primary Care Provider [phone] Reason for Visit * Reason Onset Date Comments Med Refill 04/17/2024 Encounter Details Date Type Department Care Team ([facility] st Contact Info) Description 04/17/2024 Refill [facility] MED & PEDS [address] [place] [address] Obdulia Elliott MD [address] [place] [address] Chronic bilateral low back pain without sciatica [...] Upcoming Encounters Date Type Department Care Team ([facility] st Contact Info) Description 09/10/2024 11:30 AM EDT Office Visit [facility] MED & PEDS [address] [place] [address] Obdulia Elliott MD [address] [place] [address] documented as of this encounter Visit Diagnoses Diagnosis Chronic bilateral low back pain without sciatica documented in this encounter Additional Health Concerns Assessment Noted Time PHQ-9 Depression Total Score: 8 02/20/20 24 11:38 AM EDT documented as of this encounter Care Teams Dixonac Operator Relationship Specialty Start Date End Date Obdulia Elliott MD [address] [place] [address] PCP - General Family Medicine 07/01/18 documented as of this encounter
--- OUTSIDE RECORDS SUMMARY | 2024-08-27 16:58 | XMS_ITS | Encounter Summary ---
Author Organization [employer] Address [address] [facility] 7 [place] [address] Care Team Providers Care Management Professional Name Role Phone Obdulia Elliott MD Primary Care Provider [phone] Reason for Visit * Reason Onset Date Comments Med Refill 04/21/2024 Encounter Details Date Type Department Care Team ([facility] st Contact Info) Description 04/21/2024 Refill [facility] MED & PEDS [address] [place] [address] Obdulia Elliott MD [address] [place] [address] Chronic bilateral low back pain without sciatica [...] Upcoming Encounters Date Type Department Care Team ([facility] st Contact Info) Description 09/10/2024 11:30 AM EDT Office Visit [facility] PEDS [address] [place] [address] Obdulia Elliott MD [address] [place] [address] documented as of this encounter Visit Diagnoses Diagnosis Chronic bilateral low back pain without sciatica documented in this encounter Additional Health Concerns Assessment Noted Time PHQ-9 Depression Total Score: 8 02/20/20 24 11:38 AM EDT documented as of this encounter Care Teams Management Professional Relationship Specialty Start Date End Date Obdulia Elliott MD [address] [place] [address] PCP - General Family Medicine 07/01/18 documented as of this encounter
--- OUTSIDE RECORDS SUMMARY | 2024-08-27 16:58 | XMS_ITS | Encounter Summary ---
Author Organization [employer] Address [address] [facility] 7t [place] [address] Care Team Providers Care Adjunct Physical Education Instructor Name Role Phone Obdulia Elliott MD Primary Care Provider [phone] Reason for Visit * Reason Comments Med Refill Encounter Details Date Type Department Care Team ([facility] Contact Info) Description 08/03/2024 Refill [facility] MED & PEDS [address] [place], [place] [phone] Marci Valiente MD [address] [place], [place] [phone] Chronic bilateral low back pain without sciatica [...] Upcoming Encounters Date Type Department Care Team ([facility] st Contact Info) Description 09/10/2024 11:30 AM EDT Office Visit [facility]EDS [address] [place] [address] Obdulia Elliott MD [address] [place] [address] documented as of this encounter Visit Diagnoses Diagnosis Chronic bilateral low back pain without sciatica documented in this encounter Additional Health Concerns Assessment Noted Time PHQ-9 Depression Total Score: 8 02/20/20 24 11:38 AM EDT documented as of this encounter Care Teams Adjunct Physical Education Instructor Relationship Specialty Start Date End Date Obdulia Elliott MD [address] [place] [address] PCP - General Family Medicine 07/01/18 documented as of this encounter
--- OUTSIDE RECORDS SUMMARY | 2024-08-27 16:58 | XMS_ITS | Encounter Summary ---
Author Organization [employer] Address [address] [facility] 7t [place] [address] Care Team Providers Care Voting Machine Repairer Name Role Phone Obdulia Elliott MD Primary Care Provider [phone] Encounter Details Date Type Department Care Team ([facility] st Contact Info) Description 07/14/2024 Telephone [facility] MEDIC[facility] [address] [place], [place] [phone] Obdulia Elliott MD [address] [facility] [address] [place], [place] [phone] Social History Tobacco Use Types Packs/Day Years [...] Description 09/10/2024 11:30 AM EDT Office Visit [facility] MED & PEDS [address] [place] [address] Obdulia Elliott MD [address] [place] [address] documented as of this encounter Visit Diagnoses Not on filedocumented in this encounter Additional Health Concerns Assessment Noted Time PHQ-9 Depression Total Score: 8 02/20/20 24 11:38 AM EDT documented as of this encounter Care Teams Voting Machine Repairer Relationship Specialty Start Date End Date Obdulia Elliott MD [address] [place] [address] PCP - General Family Medicine 07/01/18 documented as of this encounter
--- OUTSIDE RECORDS SUMMARY | 2024-08-27 16:58 | XMS_ITS | Encounter Summary ---
Author Organization [employer] Address [address] 7t [place] [address] Care Team Providers Care Visiting Teacher Name Role Phone Obdulia Elliott MD Primary Care Provider [phone] Encounter Details Date Type Department Care Team (Latest Contact Info) Description 08/25/2024 Travel Social History Tobacco Use Types Packs/Day Years [...] Upcoming Encounters Date Type Department Care Team ([facility] st Contact Info) Description 09/10/2024 11:30 AM EDT Office Visit [facility] PEDS [address] [place] [address] Obdulia Elliott MD [address] [place] [address] documented as of this encounter Visit Diagnoses Not on filedocumented in this encounter Additional Health Concerns Assessment Noted Time PHQ-9 Depression Total Score: 8 02/20/20 24 11:38 AM EDT documented as of this encounter Care Teams Visiting Teacher Relationship Specialty Start Date End Date Obdulia Elliott MD [address] [place] [address] PCP - General Family Medicine 07/01/18 documented as of this encounter
--- OUTSIDE RECORDS SUMMARY | 2024-08-27 16:58 | XMS_ITS | Encounter Summary ---
Author Organization [employer] Address [address] [facility] 7 [place] [address] Care Team Providers Care Electronic Typesetting Machine Operator Name Role Phone Obdulia Elliott MD Primary Care Provider [phone] Reason for Visit * Reason Onset Date Comments Nurse Triage 04/22/2024 Encounter Details Date Type Department Care Team ([facility] st Contact Info) Description 04/22/2024 Telephone [facility] MEDICINE [address] [place] [address] Obdulia Elliott MD [address] [place], [place] [phone] Nurse Triage Social History Tobacco Use Types Packs/Day Years [...] encounter Miscellaneous Notes * Telephone Encounter - Susi Hartmann RN - 04/22/2024 11:49 AM EDT Triage call Pt reports rash, red sometimes white, bumps on upper back , shoulders, bilateral arms. Pt report it is very itch and has been occurring for 3 weeks now. Pt denies medication changes, changes in detergent, soaps, lotions. Pt denies sore throat, fever. Pt does have joint swelling Pt reports this as chronic due to fibromyalgia . Pt denies any open areas from scratching. Pt is advised to try clean, wet wash cloth with ice cube to rub over the rash to reduce itching and Pt agrees to try this. ASK apt in [facility] today at 220pm. Unable to check insurance due to computer error. Protocol Used: Rash or Redness - Widespread (Adult) Protocol-Based Disposition: See in Office or Video Visit Today Video visit not offered Positive Triage Questions: * Severe itching * Patient wants to be seen * All higher-acuity triage questions were negative Care Advice Discussed: * Reasons To Call Back - Rash becomes purple or blood-colored or blister-like - Fever occurs or severe itching - You become worse * Telephone Encounter - Lan Hunt - 04/22/2024 11:14 AM EDT Symptoms: Rash or Redness - Widespread, Itching - No Rash Outcome: Schedule an urgent appointment (within 4 hours) or talk to a nurse or provider soon Reason: Severe itching now documented in this encounter Plan of Treatment Upcoming Encounters Date Type Department Care Team ([facility] st Contact Info) Description 09/10/2024 11:30 AM EDT Office Visit [facility] MED & PEDS [address] [place] [address] Obdulia Elliott MD [address] [place] [address] documented as of this encounter Visit Diagnoses Not on filedocumented in this encounter Additional Health Concerns Assessment Noted Time PHQ-9 Depression Total Score: 8 02/20/20 24 11:38 AM EDT documented as of this encounter Care Teams Electronic Typesetting Machine Operator Relationship Specialty Start Date End Date Obdulia Elliott MD [address] [place] [address] PCP - General Family Medicine 07/01/18 documented as of this encounter
--- OUTSIDE RECORDS SUMMARY | 2024-08-27 16:58 | XMS_ITS | Encounter Summary ---
Author Organization [employer] Address [address] [place] [address] 7 [place] [address] Care Team Providers Care Etl Analyst Name Role Phone Obdulia Elliott MD Primary Care Provider [phone] Reason for Visit * Reason Comments Med Change Request Encounter Details Date Type Department Care Team ([facility] Contact Info) Description 03/23/2024 Refill [facility] MED & PEDS [address] [place], [place] [phone] Obdulia Elliott MD [address] [place] [address] Social History Tobacco Use Types Packs/Day Years [...] Upcoming Encounters Date Type Department Care Team ([facility] st Contact Info) Description 09/10/2024 11:30 AM EDT Office Visit [facility] MED & PEDS [address] [place] [address] Obdulia Elliott MD [address] [place] [address] documented as of this encounter Visit Diagnoses Not on filedocumented in this encounter Additional Health Concerns Assessment Noted Time PHQ-9 Depression Total Score: 8 02/20/20 24 11:38 AM EDT documented as of this encounter Care Teams Etl Analyst Relationship Specialty Start Date End Date Obdulia Elliott MD [address] [place] [address] PCP - General Family Medicine 07/01/18 documented as of this encounter
--- OUTSIDE RECORDS SUMMARY | 2024-08-27 16:58 | XMS_ITS | Encounter Summary ---
Author Organization [employer] Address [address] [facility] 7 [place] [address] Care Team Providers Care Maintenance Technician 2Nd Shift Name Role Phone Obdulia Elliott MD Primary Care Provider [phone] Reason for Visit * Reason Onset Date Comments Med Refill 08/26/2024 Encounter Details Date Type Department Care Team (Late st Contact Info) Description 08/26/2024 Telephone [facility] [address] [place] [address] Obdulia Elliott MD [address] [place], [place] [phone] Med Refill Social History Tobacco Use Types Packs/Day Years [...] encounter Miscellaneous Notes * Telephone Encounter - Dario Gray - 08/26/2024 10:46 AM EST TC from pt requesting medication refill. Medications needing refill : oxyCODONE-acetaminophen (Percocet) 5-325 MG tablet To be sent to: [id number] [place], [place] - [address] [place] [address] [facility] documented in this encounter Plan of Treatment Upcoming Encounters Date Type Department Care Team ([facility] st Contact Info) Description 09/10/2024 11:30 AM EDT Office Visit [facility] MED & PEDS [address] [place] [address] Obdulia Elliott MD [address] [place] [address] documented as of this encounter Visit Diagnoses Not on filedocumented in this encounter Additional Health Concerns Assessment Noted Time PHQ-9 Depression Total Score: 8 02/20/20 24 11:38 AM EDT documented as of this encounter Care Teams Maintenance Technician 2Nd Shift Relationship Specialty Start Date End Date Obdulia Elliott MD [address] [place] [address] PCP - General Family Medicine 07/01/18 documented as of this encounter
--- OUTSIDE RECORDS SUMMARY | 2024-08-27 16:58 | XMS_ITS | Encounter Summary ---
Author Organization [employer] Address [address] [place] [address] Care Team Providers Care Sheet Rocker Name Role Phone Mainor Elliott MD Primary Care Provider [phone] Reason for Referral * Imaging (Routine) - Authorized Specialty Diagnoses / Procedures Referred By Contac t Referred To Contact Radiology Diagnoses Back pain of lumbosacral region with sciatica Procedures MR Lumbar Spine w/o Contrast Mainor Elliott MD [address] [place] [address] Phone: tel: fax: [address] Phone: tel: fax: Referral ID Status Reason Start Date Expiration Date V isits Requested Visits Authorized [id number] Authorized 08/25/2024 08/25/2025 1 1 Encounter Details Date Type Department Care Team (Latest Contact Info) Description 08/25/2024 11:15 AM EST Office Visit [facility] CH[facility] MED & PEDS [address] [place], [place] [phone] Mainor Elliott MD [address] [place], [place] [phone] Sacroiliitis, not elsewhere classified (CMS/HCC) (Primary Dx); Dietary counseling; Exercise counseling; Uncontrolled type 2 diabetes mellitus with hyperglycemia (CMS/HCC); Back pain of lumbosacral region with sciatica Social History Tobacco Use Types Packs/Day [...] AM EDT documented as of this encounter Last Filed Vital Signs Vital Sign Reading Time Taken Comments Blood Pressure 140/99 08/25/2024 11:22 AM EST Pulse 87 08/25/2024 11:22 AM EST Temperature 36.8 ??C (98.3 ??F) 08/25/2024 11:[address] Respiratory Rate 20 08/25/2024 11:22 AM EST Oxygen Saturation 97% 08/25/2024 11:22 AM EST Inhaled Oxygen Concentration - - Weight 79.8 kg (176 lb) 08/25/2024 11:22 AM EST Height 157.5 cm (5' 2 ) 08/25/2024 11:22 AM EST Body Mass Index 32.19 08/25/2024 11:22 AM EST documented in this encounter Progress Notes * Mainor Elliott MD - 08/25/2024 11:15 AM EST Images from the original note were not included. Subjective Patient ID: Mai Crow is a 39 y.o. female who presents for follow up. Mai is a 39 y/o diabetic female patient of mine here for f/o persistent left mid back pain radiating to left abdomen area.No associated symptoms.Has multiple CT scans of abdomen,has colitis treated by GI. Labs done recently reviewed as well.Recent KUB showed moderate constipation and some scoliosis.States blood sugars improving with higher dose trulicity. Needs refill of glipizide. 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 Review of Systems Constitutional: Negative for activity change, chills, fever and unexpected weight change. Respiratory: Negative for cough, shortness of breath and wheezing. Cardiovascular: Negative for chest pain, palpitations and leg swelling. Gastrointestinal: Negative for abdominal pain and blood in stool. Endocrine: Negative for polydipsia and polyuria. Genitourinary: Negative for decreased urine volume, difficulty urinating, dysuria, hematuria and menstrual problem. Musculoskeletal: Positive for back pain. Negative for arthralgias and gait problem. Skin: Negative for color change and rash. Neurological: Negative for dizziness and headaches. Hematological: Negative for adenopathy. Psychiatric/Behavioral: Negative for dysphoric mood, hallucinations, sleep disturbance and suicidalideas. The patient is not nervous/anxious. Objective BP (!) 140/99 (BP Location: Left arm, Patient Position: Sitting, BP Cuff Size: Adult) Pulse 87 Temp 98.3 ??F (36.8 ??C) (Oral) Resp 20 Ht 5' 2 (1.575 m) Wt 176 lb (79.8 kg) SpO2 97% BMI 32.19 kg/m?? Physical Exam Constitutional: General: She is not in acute distress. Appearance: She is obese. Cardiovascular: Rate and Rhythm: Normal rate and regular rhythm. Heart sounds: Normal heart sounds. Pulmonary: Breath sounds: Normal breath sounds. Chest: Chest wall: Tenderness present. Abdominal: General: There is distension. Palpations: Abdomen is soft. There is no mass. Tenderness: There is no abdominal tenderness. There is no guarding. Musculoskeletal: Thoracic back: Tenderness present. Lumbar back: Tenderness present. Back: Right lower leg: No edema. Left lower leg: No edema. Neurological: Mental Status: She is oriented to person, place, and time. Assessment/Plan Diagnoses and all orders for this visit: Sacroiliitis, not elsewhere classified (CMS/HCC) Dietary counseling Exercise counseling Uncontrolled type 2 diabetes mellitus with hyperglycemia (CMS/[facility]) Comments: PLease take meds as prescribed.Trulicity dose increased recently,reschedule your CDTM visit. 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 Other orders - glipiZIDE XL (Glucotrol XL) 10 MG 24 hr tablet; Take 1 tablet (10 mg) by mouth Once per day. - pregabalin (Lyrica) 75 MG capsule; Take 1 capsule (75 mg) by mouth 2 times daily. documented in this encounter Miscellaneous Notes * Addendum Note - Mainor Elliott MD - 08/25/2024 11:15 AM ESTAddended by: MAINOR ELLIOTT on: 08/25/2024 05:21 PM Modules accepted: Orders documented in this encounter Plan of Treatment Upcoming Encounters Date Type Department Care Team (Late st Contact Info) Description 09/10/2024 11:30 AM EDT Office Visit [facility] MED & PEDS [address] [place] [address] Mainor Elliott MD [address] [place] [address] Scheduled Orders Name Type Priority Associated Diagnoses Orde r Schedule MR Lumbar Spine w/o Contrast Imaging Routine Back pain of lumbosacral region with sciatica Expected: 08/25/2024, Expires: 08/25/2025 documented as of this encounter Visit Diagnoses Diagnosis Sacroiliitis, not elsewhere classified ([facility])- Primary Sacroiliitis, not elsewhere classified Dietary counseling Dietary surveillance and counseling Exercise counseling Uncontrolled type 2 diabetes mellitus with hyperglycemia ([facility]) Back pain of lumbosacral region with sciatica documented in this encounter Additional Health Concerns Assessment Noted Time PHQ-9 Depression Total Score: 8 02/20/20 24 11:38 AM EDT documented as of this encounter Care Teams Sheet Rocker Relationship Specialty Start Date End Date Mainor Elliott MD [address] [place] [address] PCP - General Family Medicine 07/01/18 documented as of this encounter
--- OUTSIDE RECORDS SUMMARY | 2024-08-27 16:58 | XMS_ITS | Encounter Summary ---
Author Organization [employer] Address [address] [place] [address] [place] [address] Care Team Providers Care Operations Agent Name Role Phone Obdulia Elliott MD Primary Care Provider [phone] Reason for Visit * Reason Comments Med Refill Encounter Details Date Type Department Care Team ([facility] Contact Info) Description 03/21/2023 Refill [facility] MED & PEDS [address] [place], [place] [phone] Marci Valiente MD [address] [place], [place] [phone] Vaginal discharge Social History Tobacco Use Types Packs/Day Years [...] 11:30 AM EDT Office Visit [facility] MED & PEDS [address] [place], [place] [phone] Obdulia Elliott MD [address] [place], [place] [phone] documented as of this encounter Visit Diagnoses Diagnosis Vaginal discharge Leukorrhea, not specified as infective documented in this encounter Care Teams Operations Agent Relationship Specialty Start Date End Date Obdulia Elliott MD [address] [place] [address] PCP - General Family Medicine 07/01/18 documented as of this encounter
--- OUTSIDE RECORDS SUMMARY | 2024-08-27 16:58 | XMS_ITS | Encounter Summary ---
Author Organization [employer] Address [address] [place] [address] Care Team Providers Care Dustless Operator Name Role Phone Obdulia Elliott MD Primary Care Provider [phone] Reason for Referral * Imaging (Routine) - Authorized Specialty Diagnoses / Procedures Referred By Contac t Referred To Contact Radiology Diagnoses Pelvic pain Cyst of left ovary Procedures US Pelvis Transvaginal Obdulia Elliott MD [address] [place] [address] Phone: tel: fax: [address] Phone: tel: fax: Referral ID Status Reason Start Date Expiration Date V isits Requested Visits Authorized [id number] Authorized 08/19/2024 08/19/2025 1 1 * Imaging (Routine) - Authorized Specialty Diagnoses / Procedures Referred By Contac t Referred To Contact Radiology Diagnoses Pelvic pain Cyst of left ovary Procedures Us Pelvis complete Obdulia Elliott MD [address] [place] [address] Phone: tel: fax: [address] Phone: tel: fax: Referral ID Status Reason Start Date Expiration Date V isits Requested Visits Authorized [id number] Authorized 08/19/2024 08/19/2025 1 1 Encounter Details Date Type Department Care Team ([facility] st Contact Info) Description 08/19/2024 Orders Only [facility] CHC MED & PEDS [address] [place] [address] Obdulia Elliott MD [address] [place] [address] Pelvic pain (Primary Dx); Cyst of left ovary Social History Tobacco Use Types Packs/Day Years [...] Description 09/10/2024 11:30 AM EDT Office Visit [facility] CHC MED & PEDS [address] [place] [address] Obdulia Elliott MD [address] [place] [address] Scheduled Orders Name Type Priority Associated Diagnoses Orde r Schedule Us Pelvis complete Imaging Routine Pelvic pain Cyst of left ovary Expected: 08/19/2024, Expires: 08/19/2025 US Pelvis Transvaginal Imaging Routine Pelvic pain Cyst of left ovary Expected: 08/19/2024, Expires: 08/19/2025 documented as of this encounter Visit Diagnoses Diagnosis Pelvic pain- Primary Cyst of left ovary Other and unspecified ovarian cyst documented in this encounter Additional Health Concerns Assessment Noted Time PHQ-9 Depression Total Score: 8 02/20/20 24 11:38 AM EDT documented as of this encounter Care Teams Dustless Operator Relationship Specialty Start Date End Date Obdulia Elliott MD [address] [place] [address] PCP - General Family Medicine 07/01/18 documented as of this encounter
--- OUTSIDE RECORDS SUMMARY | 2024-08-27 16:58 | XMS_ITS | Encounter Summary ---
Author Organization [employer] Address [address] [facility] [address] [place] [address] Care Team Providers Care Polish Maker Name Role Phone Obdulia Elliott MD Primary Care Provider [phone] Reason for Visit * Reason Onset Date Comments Med Refill 04/13/2024 Encounter Details Date Type Department Care Team ([facility] st Contact Info) Description 04/13/2024 Refill [facility] CHC MED & PEDS [address] [place] [address] Obdulia Elliott MD [address] [place] [address] Chronic bilateral low back pain without sciatica [...] 11:30 AM EDT Office Visit [facility] MED & PEDS [address] [place] [address] Obdulia Elliott MD [address] [place] [address] documented as of this encounter Visit Diagnoses Diagnosis Chronic bilateral low back pain without sciatica documented in this encounter Additional Health Concerns Assessment Noted Time PHQ-9 Depression Total Score: 8 02/20/20 24 11:38 AM EDT documented as of this encounter Care Teams Polish Maker Relationship Specialty Start Date End Date Obdulia Elliott MD [address] [place] [address] PCP - General Family Medicine 07/01/18 documented as of this encounter
--- OUTSIDE RECORDS SUMMARY | 2024-08-27 16:58 | XMS_ITS | Clinical Summary ---
Author Organization [facility] Address [address] [place] [address] Care Team Providers Care Outside Event Sales Specialist Name Role Phone Unavailable Primary Care Provider Unavailabl e Social History Tobacco Use Types Packs/Day Years Used Date Smoking Tobacco: Never Assessed Comments Unknown Sex and Gender Information Value Date Recorded Sex Assigned at Not on file Legal Sex Female 1:51 AM EST Gender Identity Not on file Sexual Orientation Not on file Plan of Treatment Health Maintenance Due Date Last Done Comments Breast Cancer Screening 1984 DTaP,Tdap,and Td Vaccines (1 - Tdap) 2003 Hepatitis B Vaccines (1 of 3 - 19+ 3-dose series) 2003 Cervical Cancer Screening: P ap Smear 2005 COVID-19 Vaccine ( - 2023-2 5 season) 2024 Influenza Vaccine (#1) 2024 HIB Vaccines Aged Out No longer eligi ble based on patient's age to complete this topic HPV Vaccines Aged Out No longer eligi ble based on patient's age to complete this topic Hepatitis A Vaccines Aged Out No long er eligible based on patient's age to complete this topic IPV Vaccines Aged Out No longer eligi ble based on patient's age to complete this topic MMR Vaccines Aged Out No longer eligi ble based on patient's age to complete this topic Meningococcal ACWY Vaccine Aged Out N o longer eligible based on patient's age to complete this topic Meningococcal B Vacine Aged Out No lo nger eligible based on patient's age to complete this topic Pneumococcal Vaccine: Pediat rics (0 to 5 Years) and At-Risk Patients (6 to 64 Years) Aged Out No longer eligible b ased on patient's age to complete this topic RSV Immunization Patients Un michele 20 months Aged Out No longer eligible b ased on patient's age to complete this topic Varicella Vaccines Aged Out No longer eligible based on patient's age to complete this topic
--- OUTSIDE RECORDS SUMMARY | 2024-08-27 16:58 | XMS_ITS | Encounter Summary ---
Author Organization [employer] Address [address] [facility] 7 [place] [address] Care Team Providers Care Nurse General Duty Name Role Phone Obdulia Elliott MD Primary Care Provider Reason for Visit * Reason Comments Med Refill Encounter Details Date Type Department Care Team ([facility] st Contact Info) Description 08/26/2024 Refill [facility] MEDICINE [address] [place], [place] [phone] Obdulia Elliott MD [address] [facility] [address] [place], [place] [phone] Primary hypertension Social History Tobacco Use Types Packs/Day Years [...] Upcoming Encounters Date Type Department Care Team ([facility] st Contact Info) Description 09/10/2024 11:30 AM EDT Office Visit [facility] CH[facility] MED & PEDS [address] [place] [address] Obdulia Elliott MD [address] [place] [address] documented as of this encounter Visit Diagnoses Diagnosis Primary hypertension Unspecified essential hypertension documented in this encounter Additional Health Concerns Assessment Noted Time PHQ-9 Depression Total Score: 8 02/20/20 24 11:38 AM EDT documented as of this encounter Care Teams Nurse General Duty Relationship Specialty Start Date End Date Obdulia Elliott MD [address] [place] [address] PCP - General Family Medicine 07/01/18 documented as of this encounter
--- OUTSIDE RECORDS SUMMARY | 2024-08-27 16:58 | XMS_ITS | Encounter Summary ---
Author Organization [employer] Address [address] [place] [address] Care Team Providers Care Health Education Coordinator Name Role Phone Obdulia Elliott MD Primary Care Provider [phone] Encounter Details Date Type Department Care Team ([facility] st Contact Info) Description 07/29/2024 Telephone [facility] MED & PEDS [address] [place], [place] [phone] Nayely Bird, PharmD [address] [place] [address] Social History Tobacco Use Types Packs/Day Years [...] encounter Miscellaneous Notes * Telephone Encounter - Nayely Bird PharmD - 07/29/2024 9:40 AM EST Celeste, this patient has an A1c > 10% and would benefit from the pharmacy CDTM program. Please send a referral for CDTM - Diabetes E11.9. Thank you! documented in this encounter Plan of Treatment Upcoming Encounters Date Type Department Care Team (Late st Contact Info) Description 09/10/2024 11:30 AM EDT Office Visit [facility] MED & PEDS [address] [place] [address] Obdulia Elliott MD [address] [place] [address] documented as of this encounter Visit Diagnoses Not on filedocumented in this encounter Additional Health Concerns Assessment Noted Time PHQ-9 Depression Total Score: 8 02/20/20 24 11:38 AM EDT documented as of this encounter Care Teams Health Education Coordinator Relationship Specialty Start Date End Date Obdulia Elliott MD [address] [place] [address] PCP - General Family Medicine 07/01/18 documented as of this encounter
--- OUTSIDE RECORDS SUMMARY | 2024-08-27 16:58 | XMS_ITS | Clinical Summary ---
Author Organization [employer] Address [address] [facility] [facility] [address] [place] [address] Care Team Providers Care Community Representative Name Role Phone Obdulia Elliott MD Primary Care Provider [phone] Allergies Active Allergy Reactions Criticality Noted Date Comments Sulfa Antibiotics Rash Low 07/14/2010 Other reaction(s): unspecified Medications * This document contains information received from the source organization and may not represent a complete record from that organization. cholecalciferol (Vitamin D-3) 50 MCG (1999) capsule TAKE 1 CAPSULE BY MOUTH EVERY DAY 90 capsule 3 023 Active Additional Information Patient not taking.Reported on 06/26/2024 cetirizine (ZyrTEC) 10 MG tablet TAKE 1 TABLET BY MOUTH EVERY DAY 90 tablet 1 024 Active valACYclovir (Valtrex) 500 MG tablet TAKE 1 TABLET BY MOUTH EVERY DAY 90 tablet 3 024 Active empagliflozin (Jardiance) 25 MGIndications:Di abetes mellitus without complication (CMS/[facility]) Take 1 tablet (25 mg) by mouth Once per day. 30 tablet 11 024 2024 Active glucose blood (FREESTYLE LITE) test stripIndications :Type 2 diabetes mellitus without complication, without long-term current use of insulin ([facility]) Check BS tid 100 strip 11 Active rosuvastatin (Crestor) 20 MG tablet Take 1 tablet (20 mg) by mouth Once per day. 30 tablet 11 024 2024 Active ibuprofen 800 MG tablet TAKE 1 TABLET BY MOUTH EVERY MORNING, AT NOON, & AT BEDTIME IF NEEDED FOR PAIN 90 tablet 2 Active omeprazole (PriLOSEC) [address] capsule Take 1 capsule by mouth 2 times daily. Active ondansetron (Zofran) 8 MG tablet Take 1 tablet by mouth every 8 (eight) hours if needed for nausea or vomiting. Active FREESTYLE LITE test stripIndications :Diabetes mellitus without complication ([facility]) Use to test blood sugar 1-2 times daily 100 each 12 024 2024 Active Lancets miscIndications: Diabetes mellitus without complication ([facility]/HCC) Use to test blood sugar 1-2 times daily 100 each Active Alcohol Swabs 70 % padsIndications: Diabetes mellitus without complication ([facility]) Use to test blood sugar 1-2 times daily 100 each Active Blood Glucose Monitoring Suppl (FreeStyle [place] Lite) w/Device kitIndications:D iabetes mellitus without complication ([facility]) Use to test blood sugar 1-2 times daily 1 kit Active albuterol 108 (90 Base) MCG/ACT inhaler Inhale 2 puffs Every 4-6 hours as needed for wheezing or shortness of breath. 18 g 1 024 2024 Active dicyclomine (Bentyl) 20 MG tablet Take 1 tablet by mouth every 6 (six) hours. Active ondansetron ODT (Zofran-ODT) 4 MG disintegrating tablet DISSOLVE 1 TABLET ON THE TONGUE EVERY 8 HOURS NEEDED FOR NAUSEA OR VOMITING Active pantoprazole (ProtoNix) 40 MG EC tablet Take 1 tablet by mouth 2 times daily. Active polyethylene glycol, PEG, 3350 (Glycolax) 17 GM/SCOOP powder MIX AND TAKE 17G BY MOUTH EVERY DAY NEEDED FOR CONSTIPATION Active lisinopril 20 MG tabletIndication s:Primary hypertension Take 1 tablet (20 mg) by mouth in the morning. 90 tablet 2 Active Dulaglutide (Trulicity) 3 MG/0.5ML solution auto-injectorInd ications:Diabete s mellitus without complication (CMS/HCC) Inject 3 mg under the skin 1 (one) time per week. 2 mL 11 Active glipiZIDE XL (Glucotrol XL) 10 MG 24 hr tablet Take 1 tablet (10 mg) by mouth Once per day. 30 tablet 5 Active pregabalin (Lyrica) 75 MG capsule Take 1 capsule (75 mg) by mouth 2 times daily. 60 capsule 025 2025 Active cloNIDine (Catapres) 0.1 MG tabletIndication s:Primary hypertension TAKE 1 TABLET BY MOUTH THREE TIMES DAILY NEEDED 270 tablet Active tiZANidine (Zanaflex) 4 MG tabletIndication s:Chronic bilateral low back pain without sciatica TAKE 1 TABLET BY MOUTH THREE TIMES DAILY NEEDED 90 tablet 025 Active cloNIDine (Catapres) 0.1 MG tabletIndication s:Primary hypertension TAKE 1 TABLET BY MOUTH THREE TIMES A DAY NEEDED 270 tablet 024 2024 Discontinued Trulicity 1.5 MG/0.5ML solution auto-injector INJECT ONE PEN (=1.5MG) SUBCUTANEOUSLY ONCE A WEEK DIRECTED 024 2024 Discontinued(I neffective) glipiZIDE XL (Glucotrol XL) 10 MG 24 hr tablet Take 1 tablet by mouth Once per day. 2024 Discontinued(R eorder (will not trigger notification to Pharmacy)) potassium chloride CR (K-Tab) 20 MEQ ER tablet Take 1 tablet by mouth Once per day. 2024 Discontinued(T herapy completed) tiZANidine (Zanaflex) 4 MG tabletIndication s:Chronic bilateral low back pain without sciatica TAKE 1 TABLET BY MOUTH THREE TIMES DAILY NEEDED 90 tablet 025 2024 Discontinued oxyCODONE-acetam inophen (Percocet) 5-325 MG tabletIndication s:Colitis Take 1 tablet by mouth 1 (one) time each day at the same time for 28 days. 28 tablet 025 2024 tiZANidine (Zanaflex) 4 MG tabletIndication s:Chronic bilateral low back pain without sciatica TAKE 1 TABLET BY MOUTH THREE TIMES DAILY NEEDED 90 tablet 025 2024 Discontinued(R eorder (will not trigger notification to Pharmacy)) Active Problems Problem Noted Date Diagnosed Date Sacroiliitis, not elsewhere classified Tobacco use 07/02/2024 Assessment & Plan (07/02/2024 7:16 PM EST): - Currently smoking 10 cigg/day - Encouraged smoking cessation resources Depression, recurrent 09/25/2023 Diabetes due to undrl condition w oth diabetic n euro comp 08/25/2023 Left lower quadrant abdominal pain 08/02/2023 Assessment & Plan (08/02/2023 9:34 AM EST): Patient that presented visit with complaints of abdominal pain will be referred to Gastroenterology. In addition, patient will be sent for labs for further evaluation. -Labs: C-Reactive Protein, C.D. Comp. Panel, Giardia Antigen, Calprotectin. Folliculitis 08/02/2023 Assessment & Plan (08/02/2023 9:32 AM EST): Patient that presented visit with complaints of folliculitis will be provided with antibiotics to treat concern. Urinary incontinence 08/11/2020 Diabetes mellitus without complication 0 Assessment & Plan (07/02/2024 7:15 PM EST): Lab Results Component Value Date HGBA1C 10.2 (A) 06/29/2024 Above goal. Reports that she does not have glucometer at home to check BG readings. Order for glucometer sent to the pharmacy. - Cont Jardiance 25mg daily - Cont glipizide 10mg daily - Cont Trulicity 1.5mg subcutaneous weekly Assessment & Plan (08/02/2023 9:34 AM EST): Uncontrolled: A1C levels are above 8%. Patient stated she hasn't been taking glucose medications due to having side effects. Therefore, patient will be provided with Glipizide to control levels. Advise to monitor glucose levels at home and bring numbers upon next office visit. 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 024 Encounters Date Type Department Care Team Description 08/27/2024 Refill [facility] [address] [place] [address] Marci Valiente MD Chronic bilateral low back pain without sciatica 08/26/2024 Telephone [facility] [address] [place] [address] Elsi Stephen RN 08/26/2024 Telephone [facility] [address] [place] [address] Elsi Stephen RN 08/26/2024 Telephone [facility] [address] [place] [address] Elsi Stephen, AURA Med Refill 08/26/2024 Refill [facility] [address] [place] [address] Obdulia Elliott MD Primary hypertension 08/26/2024 Telephone [facility] [address] [place] [address] Obdulia Elliott MD Med Refill 08/25/2024 11:15 AM EST Office Visit [facility] [address] [place] [address] Obdulia Elliott MD Sacroiliitis, not elsewhere classified (CMS/HCC) (Primary Dx); Dietary counseling; Exercise counseling; Uncontrolled type 2 diabetes mellitus with hyperglycemia (CMS/HCC); Back pain of lumbosacral region with sciatica 08/25/2024 Travel 08/19/2024 Orders Only [facility] [address] [place] [address] Obdluia Elliott MD Pelvic pain (Primary Dx); Cyst of left ovary 08/03/2024 Refill [facility] [address] [place] [address] Marci Valiente MD Chronic bilateral low back pain without sciatica 07/29/2024 Orders Only [facility] [address] [place] [phone] Obdulia Elliott MD Type 2 diabetes mellitus without complication, without long-term current use of insulin (CMS/HCC) (Primary Dx); Uncontrolled type 2 diabetes mellitus with hyperglycemia (CMS/HCC) 07/29/2024 Telephone [facility] [address] [place] [address] Nayely Bird PharmD 07/24/2024 Orders Only [facility] [address] [place] [phone] Obdulia Elliott MD History of hepatitis C (Primary Dx) 07/24/2024 Telephone [facility] [address] [place] [phone] Sarah Baires, furniture sales consultant Orders 07/23/2024 3:30 PM EST Office Visit [facility] [address] [place] [address] Obdulia Elliott MD Diabetes mellitus without complication (CMS/HCC) (Primary Dx); Primary hypertension; Colitis 07/23/2024 Travel 07/15/2024 Travel 07/14/[address] [phone] Obdulia Elliott MD 07/14/[address] [address] Obdulia Elliott MD Med Refill 07/10/2024 Telephone [facility] [address] [place] [address] Obdulia Elliott MD Med Refill 07/08/2024 Refill [facility] [address] [place] [address] Obdulia Elliott MD Chronic bilateral low back pain without sciatica 07/02/2024 Orders Only [facility] [address] [place] [address] Obdulia Elliott MD Colitis (Primary Dx) 07/02/2024 Telephone [facility] [address] [place] [phone] Obdulia Elliott MD Med Refill 06/29/2024 9:30 AM EST Office Visit [facility] [address] [place] [address] Florinda Dominique, [employer]ATT[employer] Colitis (Primary Dx); Hypokalemia; Encounter for immunization; Diabetes mellitus without complication ([facility]); Tobacco use 06/29/2024 Refill [facility] [address] [place] [address] Obdulia Elliott MD Colitis 06/29/2024 Orders Only [facility] External Provider, [facility] 06/29/2024 Travel 06/26/2024 Orders Only [facility] [address] [place] [address] Obdulia Elliott MD Colitis (Primary Dx) 06/25/[address] [address] Obdulia Elliott MD Hospital Follow-up; Nurse Triage 06/22/[address] [address] Sarah Baires RN ER Follow-up 06/18/2024 Orders Only GENER[facility] EXTERNAL DATA DEPARTMENT Provider, Generic External Data 06/16/2024 Orders Only GENERIC EXTERNAL DATA DEPARTMENT Provider, Generic External Data 06/11/2024 11:15 AM EST Office Visit [facility] [address] [place] [address] Ever Morris MD Tinea corporis (Primary Dx) 06/11/2024 Orders Only [facility] [address] [place] [address] Obdulia Elliott MD Chronic bilateral low back pain without sciatica 06/11/2024 Travel 06/06/2024 Refill [facility] [address] [place] [address] Mahsa Franklin MD 06/05/2024 Telephone [facility] [address] [place], [place] [phone] Obdulia Elliott MD Med Refill from Last 3 Months Immunizations Name Administration Dates Next Due Influenza Injectable Quadriv alant Preservative Free IIV4 MDCK 03/06/2019 Influenza injectable quadriv alent IIV4 with preservative 03/19/2018 Influenza injectable quadriv alent preservative free 08/22/2023,03/15/2022,05/20/2021,04/15 Influenza, IIV3, injectable 03/12/2014, 3 Influenza, seasonal, injecta ble, preservative free 06/29/2024,04/07/2016,05/13/2015 Rabies, intramuscular 08/09/2019,08/06/2019 Tdap 06/11/2019 Social History Tobacco Use Types Packs/Day Years Used Date Smoking Tobacco: Every Day Cigarettes Passive Smoke Exposure: Current Smokeless Tobacco: Never Tobacco Cessation:Ready to Q uit: Not Asked; Counseling Given: Not Answered Depression Answer Date Recorded Patient Health Questionnaire-9 [...] Orientation Straight 04/30/2022 10 :20 AM EDT Last Filed Vital Signs Vital Sign Reading [...] Mass Index 32.19 08/25/2024 11:22 AM EST Plan of Treatment Upcoming Encounters Date Type Department Care Team (Late st Contact Info) Description 09/10/2024 11:30 AM EDT Office Visit [facility] [address] [place] [address] Obdulia Elliott MD [address] [place] [address] Health Maintenance Due Date Last Done Comments HIV Screening 1984 Diabetes: Foot Exam 1994 Eye Exam 1994 Alcohol/Substance Use Screening 1996 Family Planning (PISQ) 1999 Hepatitis A Vaccines (1 of 2 - Risk 2-dose series) 2003 Hepatitis B Vaccines (1 of 3 - 19+ 3-dose series) 2003 Pneumococcal Vaccine: Pediatrics (0 to 5 Years) and At-Risk Patients (6 to 49) Years) (1 of 2 - PCV) 2003 COVID-19 Vaccine ( - season) 2024 01/16/2021, 12/26/2020 SDOH Screening 08/14/2024 08/14/2023 Diabetes: Hemoglobin A1C 09/27/2024 024, 01/07/2024, 11/22/2023, Additional history exists Mammogram 09/27/2024 09/27/2022, 09/27/2022 Depression Screening 02/19/2025 02/20/2024, 02/20/20 Diabetes: Urine Protein Screening 02/19/2025 02/20/2024, 09/13/2021, 2020, Additional history exists Lipid Panel 02/19/2025 02/20/2024, 08/30, 09/13/2021, Additional history exists Tobacco Screening 08/25/2025 08/25/2024 Pap Smear 10/23/2025 10/23/2022 Cervical Cancer Screening 10/24/2027 HPV/Cotest 10/24/2027 10/23/2022, 10/23/2022 DTaP/Tdap/Td Vaccines (2 - Td or Tdap) 06/11/2029 06/11/2019 Zoster Vaccines (1 of 2) 2034 RSV Patients and Patients Aged 60 years or older (1 - 1-dose 75+ series) 2059 Influenza Vaccine Completed 06/29/2024, , 03/15/2022, Additional history exists HIB Vaccines Aged Out No longer eligi ble based on patient's age to complete this topic HPV Vaccines Aged Out No longer eligi ble based on patient's age to complete this topic IPV Vaccines Aged Out No longer eligi ble based on patient's age to complete this topic Meningococcal Vaccine Aged Out No austyn [place]i eligible based on patient's age to complete this topic RSV under 20 months Aged Out No longe r eligible based on patient's age to complete this topic Rotavirus Vaccines Aged Out No longer eligible based on patient's age to complete this topic Procedures Procedure Name Priority Date/Time Associated Diagnosis Comments HCG, TOTAL, QN Routine 06/29/2024 1:04 PM EST LIPASE Routine 06/29/2024 1:04 PM EST COMPREHENSIVE METABOLIC PANEL Routine 06/29/2024 1:04 PM EST CBC WITH AUTO DIFFERENTIAL Routine 06/29/2024 1:04 PM EST URINALYSIS, COMPLETE, WITH REFLEX TO CULTURE Routine 06/29/2024 1:04 PM EST XR KUB AND UPRIGHT 2 VIEWS Routine 06/29/2024 12:19 PM EST POCT GLYCATED HEMOGLOBIN, TOTAL Routine 06/29/2024 10:01 AM EST Diabetes mellitus without complication (CMS/HCC) POCT GLUCOSE Routine 06/29/2024 10:01 AM EST Diabetes mellitus without complication (CMS/HCC) CT CHEST WO CONTRAST Routine 06/19/2024 6:45 PM EST URINALYSIS, COMPLETE, WITH REFLEX TO CULTURE Routine 06/18/2024 6:43 PM EST LIPASE Routine 06/18/2024 5:11 PM EST C-REACTIVE PROTEIN Routine 06/18/2024 5: 11 PM EST MAGNESIUM Routine 06/18/2024 5:11 PM EST COMPREHENSIVE METABOLIC PANEL Routine 06/18/2024 5:11 PM EST SED RATE BY MODIFIED WESTERGREN Routine 06/18/2024 5:01 PM EST PROTHROMBIN TIME-INR Routine 06/18/2024 5:01 PM EST HCG, TOTAL, QN Routine 06/18/2024 5:01 PM EST LACTIC ACID Routine 06/18/2024 5:01 PM EST CBC WITH AUTO DIFFERENTIAL Routine 06/18/2024 5:01 PM EST LACTIC ACID LAB USE ONLY Routine 06/16/2024 10:25 PM EST BLOOD CULTURE (SECOND) Routine 06/16/2024 8:29 PM EST LACTIC ACID Routine 06/16/2024 8:02 PM EST BLOOD CULTURE (FIRST) Routine 06/16/2024 8:02 PM EST GLUCOSE, WHOLE BLOOD Routine 06/16/2024 7:[address] ABDOMEN PELVIS W CONTRAST Routine 06/16/2024 7:45 PM EST ALBUMIN, RANDOM URINE W/CREATININE Routine 02/20/2024 11:40 AM EDT Left upper quadrant pain LIPID PANEL, STANDARD Routine 02/20/2024 11:38 AM EDT Left upper quadrant pain HPV GENOTYPES 16,18/45 Routine 10/23/2022 11:23 AM EDT IMAGE-GUIDED PAP W/AGE BASED SCR PROTOCOLS Routine 10/23/2022 11:23 AM EDT Gynecologic exam normal BI MAMMOGRAM DIAGNOSTIC TOMOSYNTHESIS RIGHT Routine 09/27/2022 8:25 AM EDT from Last 3 Months or Most Recently Relevant to Health Maintenance Results * (ABNORMAL) Urinalysis, Complete, with Reflex to Culture (06/29/2024 1:04 PM EST) Only the most recent of2 resultswithin the time period is included. Color Urine Yellow [facility] Appearance Urine Clear [facility] PH 7.5 5.0 - 9.0 [facility] Glucose Urine UA >=1000(A) Negative mg/dL [facility] Urine Blood Negative Negative [facility] Specific [place] - Urine 1.025 1.005 - 1.025 [facility] Urine Protein Negative Neg-Trace mg/dL [facility] Urine Ketones Negative Negative mg/dL [facility] Nitrite Urine Negative Negative [facility] Leukocyte Esterase Urine Negative Negative [facility] RBC Urine 0-2 0 - 2 /HPF [facility] Urine WBC 0-5 0 - 5 /HPF [facility] Urine Squamous Epithelial Cell 3-5 0 - 2 /HPF [facility] Urine Bacteria Trace None Seen [facility] Hyaline Casts, Urine 0-2 0 - 2 /LPF [facility] 06/29/2024 1:04 PM EST 06/29/2024 1:09 PM EST Narrative [facility] - 06/29/2024 1:16 PM EST [id number], Clean Catch us Generic External Data Provider LAB URINE ORDERAB LES Final Result [facility] [address] [place] [phone] * (ABNORMAL) CBC auto differential (06/29/2024 1:04 PM EST) Only the most recent of2 resultswithin the time period is included. White Blood Count 11.1(H) 4.8 - 10.8 X10*3/uL [facility] Red Blood Count 4.58 4.20 - 5.50 X10*6/uL [facility] Hemoglobin 14.7 12.0 - 16.0 g/dl [facility] Hematocrit 42.4 37.0 - 47.0 % [facility] Mean Corpuscular Volume 92.6 80.0 - 98.0 fL [facility] Mean Corpuscular Hemoglobin 32.1 27.0 - 33.0 pg [facility] Mean Corpuscular HGB Conc 34.7 31.0 - 35.0 g/dl [facility] Red Cell Distribution Width 12.5 11.0 - 16.0 % [facility] Platelet Count 253 160 - 400 X10*3/uL [facility] Mean Platelet Volume 10.1 9.4 - 12.3 fL [facility] Neutrophils Percent Auto 68.1 45 - 73 % [facility] Imm Gran Pct Auto 1.3(H) 0.0 - 0.4 % [facility] Lymphocytes Percent Auto 23.5 20 - 40 % [facility] Monocytes Percent Auto 5.8 2 - 11 % [facility] Eosinophils Percent Auto 0.8 0 - 4 % [facility] Basophils Percent Auto 0.5 0 - 2 % [facility] NRBC Pct Auto 0.0 0.0 - 0.2 /100WBC [facility] Neutrophils Absolute Auto 7.5 2.0 - 8.3 x10*3/uL [facility] Imm Gran Abs Auto 0.14(H) 0.00 - 0.03 X10*3/uL [facility] Lymphocytes Absolute Auto 2.6 1.2 - 4.9 X10*3/uL [facility] Monocytes Absolute Auto 0.6 0.1 - 1.2 X10*3/uL [facility] Eosinophils Absolute Auto 0.1 0.0 - 0.4 X10*3/uL [facility] Basophils Absolute Auto 0.1 0.0 - 0.2 X10*3/uL [facility] NRBC Abs Auto 0.000 0.0 - 0.012 X10*3/uL [facility] 06/29/2024 1:04 PM EST 06/29/2024 1:09 PM EST us Generic External Data Provider LAB BLOOD ORDERAB LES Final Result [facility] [address] [place] [address] [phone] * hCG, Total, Quantitative (06/29/2024 1:04 PM EST) Only the most recent of2 resultswithin the time period is included. HCG Quantitative <2 mIU/mL [facility] Comment:Weeks post LMP Appro ximate hCG(Last Menstrual Period) Range (mIU/ml)3 - 4 weeks 9 - 1304 - 5 weeks 75 - 2,6005 - 6 weeks 850 - 20,8006 - 7 weeks 4000 - 100,2007 - 12 weeks 11,500 - 289,26019 - 16 weeks 18,300 - 137,30441 - 29 weeks (2nd trimester) 1,400 - 53,79342 - 41 weeks (3rd trimester) 940 - 60,000The [place] B- hCG assay is used for the early detection ofpregnancy; it cannot be used to diagnose any conditionunrelated to . If a B-hCG level is not supportedby the clinical evidence, results should be confirmed by analternative method (qualitative urine hCG, for example). 06/29/2024 1:04 PM EST 06/29/2024 1:09 PM EST Generic External Data Provider LAB BLOOD ORDERAB LES Final Result Performing Organization Address [facility] Co de Phone Number [facility] [address] [place] [phone] * Lipase (06/29/2024 1:04 PM EST) Only the most recent of2 resultswithin the time period is included. Lipase 21 8 - 78 U/L [facility] 06/29/2024 1:04 PM EST 06/29/2024 1:09 PM EST Generic External Data Provider LAB BLOOD ORDERAB LES Final Result Performing Organization Address [facility] de Phone Number [facility] [address] [place] [phone] * (ABNORMAL) Comprehensive Metabolic Panel (06/29/2024 1:04 PM EST) Only the most recent of2 resultswithin the time period is included. Sodium 139 135 - 145 mmol/L [facility] Potassium 4.4 3.3 - 5.1 mmol/L [facility] Chloride 109(H) 96 - 108 mmol/L [facility] Carbon Dioxide 23 22 - 29 mmol/L [facility] Anion Gap 11(L) 12 - 20 [facility] Urea Nitrogen (BUN) 7(L) 9 - 16 mg/dL [facility] Creatinine, Serum 0.68 0.5 - 1.4 mg/dL [facility] Creatinine Clr Calc Pharmacy 108.4 [facility] Comment:Provided height and weight: 157.48 cm,79.379 kg.eGFR (calculated from the MDRD study equation) and eCrCl(calculated from the Cockcroft-Gault equation) are based ondifferent parameters and may not yield comparable results.If eCrCl result is absurd, please check patient'sheight/weight. Estimated Glomerular Filt Rate >60 [facility] Comment:Chronic Kidney Disea se: Estimated GFR < 60 mL/min/[id number] Kidney Disease: Estimated GFR < 15 mL/min/1.73m2 Glucose 207(H) 60 - 115 mg/dL [facility] Calcium 9.1 8.4 - 10.2 mg/dL [facility] [facility] Bilirubin, Total 0.2 0.0 - 1.0 mg/dL [facility] Aspartate Amino Transferase 31 5 - 31 U/L [facility] Alanine Aminotransferase 39(H) 0 - 31 U/L [facility] Total Protein 7.2 6.5 - 8.0 g/dL [facility] Albumin Level 4.3 3.5 - 5.0 g/dL [facility] Alkaline Phosphatase 75 39 - 117 U/L [facility] 06/29/2024 1:04 PM EST 06/29/2024 1:09 PM EST us Generic External Data Provider LAB BLOOD ORDERAB LES Final Result [facility] [address] [place] [phone] * XR KUB and Upright 2 Views (06/29/2024 12:19 PM EST) Anatomical Region Laterality Modality Radiographic Dilma ging 06/29/2024 12:1 9 PM EST Narrative 06/29/2024 12:53 PM EST ? [facility] ?[address] ?[place] [address] ?XRay Report ? Signed ? Patient: Normandin,Mai ?MR#: [id number] ?? 4 ? : 1985 ?Acct:[id number] ? Age/Sex: 38 / F ?ADM Date: 06/29/24 ? Loc: HO.ED ? Attending Dr: ? Ordering Physician: Scooby Chavez ?? Date of Service: 06/29/24 ?? Procedure(s): XR KUB ?? Accession Number(s): [id number] ? cc: Obdulia Elliott MD; Scooby Chavez ? EXAMINATION: ?? XR ABDOMEN KUB ? CLINICAL INDICATION: ?? constipation ? COMPARISON: ?? None available. ? TECHNIQUE: ?? AP view of the abdomen. ? FINDINGS: ?? Is moderate stool seen in colon without any significant distention. No ?? radiopaque calculi seen in the abdomen. No organomegaly. There is mild ?? dextroscoliosis dorsal lumbar junction. Rest of the visualized bones ?? are grossly unremarkable. ? XR/XR KUB ?? IMPRESSION: ?? Moderate constipation. ? Electronically signed by: ??Osei Tovar MD ??06/29/2024 12:51 PM EST RP ? Dictated By: ?Osei Tovar MD ? Signed By: ?<Electronically signed by Osei Cristela Tovar MD in OV> ?06/29/24 1251 ? DD/ 1219 ? TD/TT: 06/29/24 1231 ? Photographic Engineer: MSM ? Procedure Note Quinn, Image - 06/29/[address] [address] XRay Report Signed Patient: Javy Crow#: [id number] 4 : 1985Acct:[id number] Age/Sex: 38 / FADM Date: 06/29/24 Loc: HO.ED Attending Dr: Ordering Physician: Scooby Chavez Date of Service: 06/29/24 Procedure(s): XR KUB Accession Number(s): [id number] cc: Obdulia Elliott MD; Scooby Chavez EXAMINATION: XR ABDOMEN KUB CLINICAL INDICATION: constipation COMPARISON: None available. TECHNIQUE: AP view of the abdomen. FINDINGS: Is moderate stool seen in colon without any significant distention. No radiopaque calculi seen in the abdomen. No organomegaly. There is mild dextroscoliosis dorsal lumbar junction. Rest of the visualized bones are grossly unremarkable. XR/XR KUB IMPRESSION: Moderate constipation. Electronically signed by: Osei Tovar MD 06/29/2024 12:51 PM EST Dictated By: Osei Tovar MD Signed By: <Electronically signed by Osei Tovar MD in OV> 06/29/24 1251 DD/ 1219 TD/TT: 06/29/24 1231 Photographic Engineer: [facility] External Provider IMG XR PROCEDURES Final Result * (ABNORMAL) POCT HGB A1C (06/29/2024 10:01 AM EST) Hemoglobin A1C 10.2(A) 4.0 - 6.0 % QC Media Lot # [id number] Lot# Expiration Date 812,026 Blood 06/29/2024 10:0 1 AM EST [employer] [facility] POINT OF CARE TEST ENTER/EDIT ORDERABLES Final Result * (ABNORMAL) POCT Glucose (06/29/2024 10:01 AM EST) Glucose Blood, POC 232(A) 60 - 200 mg/dL Comment:Random QC Media Lot # [id number] Lot# Expiration Date 482,025 Blood Capillary blood specimen / Unknown 06/29/2024 10:01 AM EST [employer] [facility] POINT OF CARE TEST ENTER/EDIT ORDERABLES Final Result * CT Chest w/o Contrast (06/19/2024 6:45 PM EST) Anatomical Region Laterality Modality Body, Chest Computed Tomogra phy 06/19/2024 6:45 PM EST Narrative 06/20/2024 1:29 PM EST ? [facility] ?[address] ?[place] [address] ? CT Scan Report ? Signed ? Patient: Normandin,Mai ?MR#: [id number] ?? 4 ? : 1985 ?Acct:[id number] ? Age/Sex: 38 / F ?ADM Date: 06/18/24 ? Loc: HO.IMC ?462-1 ? Attending Dr: Katelyn Schmitt MD ? Ordering Physician: Katelyn Schmitt MD ?? Date of Service: 06/19/24 ?? Procedure(s): CT chest wo IV con ?? Accession Number(s): [id number] ? cc: Obdulia Elliott MD; Katelyn Schmitt MD ? EXAMINATION: CT CHEST WITHOUT IV CONTRAST. ? CLINICAL INFORMATION: severfe rib pain ? COMPARISON: ?? No prior CT available for comparison. ? TECHNIQUE: ?? Multidetector volumetric CT imaging of the chest was done. Axial MIP ?? volume rendering provided. Sagittal and coronal reformatted images were ?? obtained. ? This CT examination was performed using dose optimization techniques as ?? appropriate, variously including the following: ?? *Automated exposure control ?? *Adjustment of mA and/or kV according to patient size (this includes ?? techniques or standardized protocols for targeted exams where dose is ?? matched to indication/reason for exam; i.e. extremities or head) ?? *Use of iterative reconstruction technique ? CONTRAST: Noncontrasted study. ? DLP: ?? 407 mGy-cm ? FINDINGS: ? SHEET METAL SHOP FOREMAN: LINES/TUBES: Geological Technical Officer reviewed, no lines. ? LUNGS: ?? Lung parenchyma: No evidence of significant interstitial disease. ?? Lung nodules/masses: Groundglass opacity left upper lobe 1.2 x 1 cm ?? image 202 series 4. Groundglass nodule middle lobe 1.1 x 0.8 cm image ?? 326 series 4. Groundglass density right lower lobe peripheral fissure ?? based 1.1 cm image 327 series 4. ? - No evidence of neoplasm. No lung mass or suspicious nodules, there ?? are scattered tiny micronodules, measuring 3 mm or less, nonspecific, . ?? (Lema images). ? AIRWAYS: Trachea and bronchi are normal. ? PLEURA: No pleural effusion or pneumothorax. ? MEDIASTINUM AND STEPHANIA: No mediastinal, hilar or axillary ?? lymphadenopathy. ?? No mediastinal mass. ? VESSELS: HEART AND PERICARDIUM: Thoracic aorta is normal in size. Heart ?? is normal in size. ??No pericardial effusion. No coronary calcification. ?? Pulmonary arteries are normal in size. ? LOWER NECK, AXILLA: ??The visualized thyroid gland is unremarkable. No ?? axillary mass or adenopathy. ? VISUALIZED ABDOMEN: Unremarkable ? CHEST WALL AND BONES: No chest wall mass. The visualized bony thorax is ?? within normal limits. ? CT/CT chest wo IV con ?? IMPRESSION: ? 1. ??No CT evidence of rib fracture. ? 2. ??No suspicious lung mass, there are scattered bilateral groundglass ?? lung nodules largest 1.2 cm. ? 3. ??No lymphadenopathy. ? 4. ??No pleural effusion. No evidence of lung mass or suspicious ?? nodules, there are scattered tiny micronodules measuring 3 mm or less, ?? nonspecific. ? 5. ??According to the UPDATED 2017 Fleischner Society recommendations, ?? the advised follow-up imaging for a single pure ground-glass nodule ?? measuring 11mm or greater and/or nodules with suspicious features such ?? as bubbly lucencies or cystic areas is: ?? CT at 6 months to confirm persistence. If stable, then follow-up CT ?? every 2 years until 5 years documented stability. ? Electronically signed by: ??Rodrigo Matos MD ??06/20/2024 01:26 PM EST ?? RP ? Dictated By: ?Rodrigo Matos MD ? Signed By: ?<Electronically signed by Rodrigo Matos MD in OV> ?06/20/24 1326 ? DD/ 1845 ? TD/TT: 06/19/24 1906 ? Photographic Engineer: HS ? Procedure Note Donotuseinterpreter, Image - 06/20/[address] [address] [address] Scan Report Signed Patient: Javy Crow#: [id number] 4 : 1985Acct:[id number] Age/Sex: 38 / FADM Date: 06/18/24 Loc: [facility] 462-[address]: Katelyn Schmitt MD Ordering Physician: Katelyn Schmitt MD Date of Service: 06/19/24 Procedure(s): CT chest wo IV con Accession Number(s): [id number] cc: Obdulia Elliott MD; Katelyn Schmitt MD EXAMINATION: CT CHEST WITHOUT IV CONTRAST. CLINICAL INFORMATION: severfe rib pain COMPARISON: No prior CT available for comparison. TECHNIQUE: Multidetector volumetric CT imaging of the chest was done. Axial MIP volume rendering provided. Sagittal and coronal reformatted images were obtained. This CT examination was performed using dose optimization techniques as appropriate, variously including the following: *Automated exposure control *Adjustment of mA and/or kV according to patient size (this includes techniques or standardized protocols for targeted exams where dose is matched to indication/reason for exam; i.e. extremities or head) *Use of iterative reconstruction technique CONTRAST: Noncontrasted study. DLP: 407 mGy-cm FINDINGS: SHEET METAL SHOP FOREMAN: LINES/TUBES: Geological Technical Officer reviewed, no lines. LUNGS: Lung parenchyma: No evidence of significant interstitial disease. Lung nodules/masses: Groundglass opacity left upper lobe 1.2 x 1 cm image 202 series 4. Groundglass nodule middle lobe 1.1 x 0.8 cm image 326 series 4. Groundglass density right lower lobe peripheral fissure based 1.1 cm image 327 series 4. - No evidence of neoplasm. No lung mass or suspicious nodules, there are scattered tiny micronodules, measuring 3 mm or less, nonspecific, . (Lema images). AIRWAYS: Trachea and bronchi are normal. PLEURA: No pleural effusion or pneumothorax. MEDIASTINUM AND STEPHANIA: No mediastinal, hilar or axillary lymphadenopathy. No mediastinal mass. VESSELS: HEART AND PERICARDIUM: Thoracic aorta is normal in size. Heart is normal in size. No pericardial effusion. No coronary calcification. Pulmonary arteries are normal in size. LOWER NECK, AXILLA: The visualized thyroid gland is unremarkable. No axillary mass or adenopathy. VISUALIZED ABDOMEN: Unremarkable CHEST WALL AND BONES: No chest wall mass. The visualized bony thorax is within normal limits. CT/CT chest wo IV con IMPRESSION: 1. No CT evidence of rib fracture. 2. No suspicious lung mass, there are scattered bilateral groundglass lung nodules largest 1.2 cm. 3. No lymphadenopathy. 4. No pleural effusion. No evidence of lung mass or suspicious nodules, there are scattered tiny micronodules measuring 3 mm or less, nonspecific. 5. According to the UPDATED 2017 Fleischner Society recommendations, the advised follow-up imaging for a single pure ground-glass nodule measuring 11mm or greater and/or nodules with suspicious features such as bubbly lucencies or cystic areas is: CT at 6 months to confirm persistence. If stable, then follow-up CT every 2 years until 5 years documented stability. Electronically signed by: Rodrigo Matos MD 06/20/2024 01:26 PM EST Dictated By: Rodrigo Matos MD Signed By: <Electronically signed by Rodrigo Matos MD in OV> 06/20/24 1326 DD/ 1845 TD/TT: 06/19/24 1906 Photographic Engineer: [facility] External Provider IMG CT PROCEDURES Edited Result - Final * C-reactive Protein (06/18/2024 5:11 PM EST) C Reactive Protein 0.28 < or = 0.50 mg/dL [facility] 06/18/2024 5:11 PM EST 06/18/2024 5:14 PM EST Generic External Data Provider LAB BLOOD ORDERAB LES Final Result [facility] [address] [place] [phone] * Magnesium (06/18/2024 5:11 PM EST) Magnesium 2.1 1.6 - 2.6 mg/dL [facility] 06/18/2024 5:11 PM EST 06/18/2024 5:14 PM EST Generic External Data Provider LAB BLOOD ORDERAB LES Final Result Performing Organization Address [facility] Co de Phone Number [facility] [address] [place] [phone] * Sed Rate by Modified [place] (06/18/2024 5:01 PM EST) Pathologist [facility] Erythrocyte Sedimentation Rate 8 0 - 20 MM/HR [facility] Comment:Patients with polycy themia and many hemoglobin abnormalitiesmay have depressed sed rates whereas patients with anemiamay have elevated sed rates. 06/18/2024 5:01 PM EST 06/18/2024 5:11 PM EST Generic External Data Provider LAB BLOOD ORDERAB LES Final Result Performing Organization Address [facility] Co de Phone Number [facility] [address] [place] [phone] * Prothrombin Time-INR (06/18/2024 5:01 PM EST) Prothrombin Time 11.8 10.9 - 12.4 SEC [facility] INTERNATIONAL NORM RATIO 1.0 0.9 - 1.1 [facility] Comment:INTERNATIONAL NORMAL IZED RATIO (INR) REFERENCE RANGES Reference RangeFor patients not on anticoagulant therapy: 0.9 - 1.1INR ranges for oral anticoagulanttherapy:For prevention and treatment of venous thrombosis and pulmonary embolism: 2.0 - 3.0For acute myocardial infarction with aspirin therapy: 2.0 - 3.0For acute myocardial infarction without aspirin therapy: 3.0 - 4.0For patients with mechanical prosthetic heart valves: 2.5 - 3.5 06/18/2024 5:01 PM EST 06/18/2024 5:11 PM EST Generic External Data Provider LAB BLOOD ORDERAB LES Final Result Performing Organization Address [facility] Co de Phone Number [facility] [address] [place] [phone] * Lactic Acid (06/18/2024 5:01 PM EST) Only the most recent of2 resultswithin the time period is included. Lactic Acid 1.1 0.5 - 2.0 mmol/L [facility] 06/18/2024 5:01 PM EST 06/18/2024 5:11 PM EST Generic External Data Provider LAB BLOOD ORDERAB LES Final Result Performing Organization Address [facility] Co de Phone Number [facility] [address] [place] [phone] * Lactic Acid (06/16/2024 10:25 PM EST) Lactic Acid 1.3 0.5 - 2.0 mmol/L [facility] 06/16/2024 10:2 5 PM EST 06/16/2024 10:27 PM EST Generic External Data Provider LAB BLOOD ORDERAB LES Final Result Performing Organization Address [facility] de Phone Number [facility] [address] [place] [phone] * Blood Culture (Second) (06/16/2024 8:29 PM EST) Blood Venous blood specimen / Unknown 06/16/2024 8:29 PM EST 06/16/2024 8:36 PM EST Comment:Blood Narrative [facility] - 06/21/2024 10:36 PM EST Blood Culture (Second) No growth after 5 days. Specimen Source: Blood Generic External Data Provider LAB MICROBIOLOGY - GENERAL ORDERABLES Final Result Performing Organization Address [facility] de Phone Number [facility] [address] [place] [phone] * Blood Culture (First) (06/16/2024 8:02 PM EST) Blood Venous blood specimen / Unknown 06/16/2024 8:02 PM EST 06/16/2024 8:05 PM EST Comment:Blood Narrative [facility] - 06/21/2024 10:05 PM EST Blood Culture (First) No growth after 5 days. Specimen Source: Blood Generic External Data Provider LAB MICROBIOLOGY - GENERAL ORDERABLES Final Result Performing Organization Address [facility] Phone Number [facility] [address] [place] [phone] * (ABNORMAL) Glucose, Whole Blood (06/16/2024 7:48 PM EST) Glucose, Whole Blood 366(HH) 60 - 115 mg/dL [facility] Comment:METER #: [id number] 06/16/2024 7:48 PM EST 06/16/2024 7:51 PM EST Generic External Data Provider LAB BLOOD ORDERAB LES Final Result Performing Organization Address [facility] de Phone Number [facility] [address] [place] [phone] * CT Abdomen Pelvis w/ Contrast (06/16/2024 7:45 PM EST) Anatomical Region Laterality Modality Body, Pelvis, Abdomen Computed T omography 06/16/2024 7:45 PM EST Narrative 06/16/2024 9:57 PM EST ? [facility] ?[address] ?[place] [address] ? CT Scan Report ? Signed ? Patient: Normandin,Mai ?MR#: [id number] ?? 4 ? : 1985 ?Acct:[id number] ? Age/Sex: 38 / F ?ADM Date: 06/16/24 ? Loc: HO.ED ? Attending Dr: ? Ordering Physician: Damaris Mora ?? Date of Service: 06/16/24 ?? Procedure(s): CT abdomen pelvis w IV con ?? Accession Number(s): [id number] ? cc: Obdulia Elliott MD; Damaris Mora ? EXAMINATION: ?? CT ABDOMEN AND PELVIS WITH CONTRAST ? CLINICAL INFORMATION: ?? Abdominal pain ? COMPARISON: ?? CT abdomen pelvis 03/12/2024 ? TECHNIQUE: ?? Multidetector volumetric images were obtained from the superior aspect ?? of the liver through the pubic symphysis following administration 85 mL ?? of Omnipaque 350 intravenous contrast. Sagittal and coronal reformatted ?? images were obtained on the technologist's workstation. ? Oral contrast: No ? This CT examination was performed using dose optimization techniques as ?? appropriate, variously including the following: ?? *Automated exposure control ?? *Adjustment of mA and/or kV according to patient size (this includes ?? techniques or standardized protocols for targeted exams where dose is ?? matched to indication/reason for exam; i.e. extremities or head) ?? *Use of iterative reconstruction technique ? DLP: ?? 578 mGy-cm ? FINDINGS: ?? LUNG BASES: The visualized lung bases are unremarkable. ??Suspect small ?? hiatal hernia ? LIVER, GALLBLADDER, AND BILIARY TREE: The liver is mildly enlarged in ?? size measuring 18 cm in craniocaudad length. It is normal shape, and ?? attenuation. No focal hepatic lesion or biliary ductal dilatation is ?? present. The gallbladder is unremarkable with no evidence of radiopaque ?? gallstones, gallbladder wall thickening, or obvious pericholecystic ?? inflammatory changes. ? PANCREAS: Unremarkable. ? SPLEEN: Unremarkable. ? ADRENAL GLANDS: Unremarkable. ? KIDNEYS AND URETERS: The kidneys are normal in size, shape, and ?? attenuation. No hydronephrosis, hydroureter, or calculi seen. No ?? perinephric stranding. ? BLADDER: Unremarkable. ? GASTROINTESTINAL TRACT: There is scattered stool and gas seen in colon ?? without distention. There is diffuse mural thickening involving the ?? entire colon most prominent in the distal descending and sigmoid ?? region. No pericolic fat stranding seen. ??The small bowel loops are ?? normal caliber. Appendix is not visualized. Stomach is nondistended. ?? The stomach is fluid-filled and minimally distended. ? ABDOMINAL WALL: No significant hernia is appreciated. ? LYMPH NODES: Normal. ? VASCULAR: Unremarkable. ? PELVIC VISCERA: The uterus is anteverted. There is 1.5 cm irregular ?? shaped left corpus luteal cyst. No free fluid or free air seen. ? OSSEOUS STRUCTURES: There is mild to moderate posterior spondylosis and ?? bridging osteophyte L5-S1 disc level. ? CT/CT abdomen pelvis w IV con ?? IMPRESSION: ?? 1. ??Diffuse mural thickening involving the entire colon most prominent ?? in the distal descending and sigmoid region. No pericolic fat stranding ?? seen. Findings are suggestive of colitis. ?? 2. ??Mild hepatomegaly. ?? 3. ??Left corpus luteal cyst. ?? 4. ??Suspect small hiatal hernia ? Fleischner guidelines were followed. ? Electronically signed by: ??Osei Tovar MD ??06/16/2024 09:54 PM EST RP ? Dictated By: ?La,Osei S MD ? Signed By: ?<Electronically signed by Osei S La MD in OV> ?06/16/242153 ? DD/ 44 ? TD/TT: 06/16/242021 ? Photographic Engineer: MSM ? Procedure Note Cruz Ball - 06/16/[address] [address] [address] Scan Report Signed Patient: Mai Crow#: [id number] 4 : 1985Acct:[id number] Age/Sex: 38 / FADM Date: 06/16/24 Loc: HO.ED Attending Dr: Ordering Physician: Damaris Mora Date of Service: 06/16/24 Procedure(s): CT abdomen pelvis w IV con Accession Number(s): [id number] cc: Obdulia Elliott MD; Damaris Mora EXAMINATION: CT ABDOMEN AND PELVIS WITH CONTRAST CLINICAL INFORMATION: Abdominal pain COMPARISON: CT abdomen pelvis 03/12/2024 TECHNIQUE: Multidetector volumetric images were obtained from the superior aspect of the liver through the pubic symphysis following administration 85 mL of Omnipaque 350 intravenous contrast. Sagittal and coronal reformatted images were obtained on the technologist's workstation. Oral contrast: No This CT examination was performed using dose optimization techniques as appropriate, variously including the following: *Automated exposure control *Adjustment of mA and/or kV according to patient size (this includes techniques or standardized protocols for targeted exams where dose is matched to indication/reason for exam; i.e. extremities or head) *Use of iterative reconstruction technique DLP: 578 mGy-cm FINDINGS: LUNG BASES: The visualized lung bases are unremarkable. Suspect small hiatal hernia LIVER, GALLBLADDER, AND BILIARY TREE: The liver is mildly enlarged in size measuring 18 cm in craniocaudad length. It is normal shape, and attenuation. No focal hepatic lesion or biliary ductal dilatation is present. The gallbladder is unremarkable with no evidence of radiopaque gallstones, gallbladder wall thickening, or obvious pericholecystic inflammatory changes. PANCREAS: Unremarkable. SPLEEN: Unremarkable. ADRENAL GLANDS: Unremarkable. KIDNEYS AND URETERS: The kidneys are normal in size, shape, and attenuation. No hydronephrosis, hydroureter, or calculi seen. No perinephric stranding. BLADDER: Unremarkable. GASTROINTESTINAL TRACT: There is scattered stool and gas seen in colon without distention. There is diffuse mural thickening involving the entire colon most prominent in the distal descending and sigmoid region. No pericolic fat stranding seen. The small bowel loops are normal caliber. Appendix is not visualized. Stomach is nondistended. The stomach is fluid-filled and minimally distended. ABDOMINAL WALL: No significant hernia is appreciated. LYMPH NODES: Normal. VASCULAR: Unremarkable. PELVIC VISCERA: The uterus is anteverted. There is 1.5 cm irregular shaped left corpus luteal cyst. No free fluid or free air seen. OSSEOUS STRUCTURES: There is mild to moderate posterior spondylosis and bridging osteophyte L5-S1 disc level. CT/CT abdomen pelvis w IV con IMPRESSION: 1. Diffuse mural thickening involving the entire colon most prominent in the distal descending and sigmoid region. No pericolic fat stranding seen. Findings are suggestive of colitis. 2. Mild hepatomegaly. 3. Left corpus luteal cyst. 4. Suspect small hiatal hernia Fleischner guidelines were followed. Electronically signed by: Osei Tovar MD 06/16/2024 09:54 PM EST Dictated By: Osei Tovar MD Signed By: <Electronically signed by Osei Tovar MD in OV> 06/16/242153 DD/ 44 TD/TT: 06/16/242021 Photographic Engineer: [facility] External Provider IMG CT PROCEDURES Final Result * (ABNORMAL) Albumin, Random Urine W/Creatinine (02/20/2024 11:40 AM EDT) Creatinine, Urine 82.08 mg/dL [facility] Microalbumin Urine 50.0 mg/L [facility] Microalbum Creatinine Ratio Ur 60.9(H) <30 ug/mg cr [facility] Comment:Albumin/Creatinine R atio Reference Ranges: Normal: < 30 ug/mg creatinine Microalbuminuria: 30 - 300 ug/mg creatinineClinical Albuminuria: > 300 ug/mg creatinine Urine (Urine, Random) 02/20/2024 11:40 AM EDT 02/20/2024 2:11 PM EDT Obdulia Elliott MD LAB URINE ORDERABLES Final Re sult [facility] [address] [place] [phone] * (ABNORMAL) Lipid Panel, Standard (02/20/2024 11:38 AM EDT) Triglycerides 387(H) <150 mg/dL [facility] Comment:Desirable Triglyceri de: less than 150 mg/dLBorderline High Triglyceride 150-199 mg/dLHigh Triglyceride: 200-499 mg/dLVery High Triglyceride: greater than or equal to 5OO mg/dL Cholesterol 284(H) <200 mg/dL [facility] Comment:Desirable Cholestero l: less than 200 mg/dLBorderline High Cholesterol: 200-239 mg/dLHigh Cholesterol: greater than 239 mg/dL LDL Cholesterol Calculated 168(H) <100 mg/dL [facility] Comment:Desirable LDL: less than 100 mg/dLNear Optimal/Above Optimal LDL: 110- 129 mg/dLBorderline High LDL: 130-159 mg/dLHigh LDL: 160-189 mg/dLVery High LDL: greater than or equal to 190 mg/dL HDL Cholesterol 39(L) >40 mg/dL [facility] Comment:Desirable HDL: great er than 40 mg/dL Note: This HDL assay may give artificially low results in patients with liver disease. Blood Venous blood specimen / Unknown 02/20/2024 11:38 AM EDT 02/20/2024 2:14 PM EDT us Obdulia Elliott MD LAB BLOOD ORDERABLES Final Re sult [facility] [address] [place] [phone] * (ABNORMAL) Image-Guided Pap with Age-Based Screening Protocols (10/23/2022 11:23 AM EDT) Comment [employer] Comment: This order for age-based cervical cancer and STI screening follows ACOG guidelines(PB 168, 140, ABH551). See individual assays for performing site location. Clinical Information: None given [facility] LMP: NONE GIVEN [facility] Prev. PAP: NONE GIVEN [facility] Prev. BX: YES [facility] SOURCE: None given [facility] Statement Of Adequacy: [employer] [employer] [facility] Comment: Satisfactory for evaluation. Endocervical/transformation zone component absent. Interpretation/ Result: Negative for intraepithelial lesion or malignancy. [facility] COMMENT: This Pap test has been evaluated with computer assisted technology. [facility] Cytotechnologis t: [facility] Comment: [place], CT(ASCP) CT screening location: [address] ??[address] Review Cytotechnologis t: [facility] [employer] [facility] Comment: DCR, CT(ASCP) CT screening location: [address] ??[address] (Always Message) [employer] [employer] [facility] Comment: EXPLANATORY NOTE: The Pap is a screening test for cervical cancer. It is not a diagnostic test and is subject to false negative and false positive results. It is most reliable when a satisfactory sample, regularly obtained, is submitted with relevant clinical findings and history, and when the Pap result is evaluated along with historic and current clinical information. HPV nRNA E6/E7 Detected(A) Not Detected [facility] [employer] [facility] Comment: Methodology: Lumber Stacker-Mediated Amplification This assay detects E6/E7 viral messenger RNA (mRNA) from 14 high-risk HPV types (16,18,31,33,35,39,45,51,52,56,58,59,66,68). Cervical sources are required for HPV testing. If a vaginal source from a patient who has had a total hysterectomy with removal of cervix was submitted, please contact the testing laboratory for alternative testing options. For additional information, please refer to http://education.Cerahelix/faq/RRQ775r5 (This link if provided for information/ educational purposes only.) Specimen from uterine cervix (specimen) 10/23/2022 11:23 AM EDT 10/24/2022 7:46 AM EDT Obdulia Elliott MD LAB BLOOD ORDERABLES Final Re sult [facility] [address], [place] [address] [employer] [address] [place] [address] * HPV Genotypes 16,18/45 (10/23/2022 11:23 AM EDT) HPV 16 RNA NOT DETECTED NOT DETECTED [facility] [employer] [facility] HPV 18/45 RNA NOT DETECTED NOT DETECTED [facility] Comment: Methodology: Lumber Stacker Mediated Amplification Cervical sources are required for HPV testing. If a vaginal source from a patient who has had a total hysterectomy with removal of cervix was submitted, please contact the testing laboratory for alternative testing options. 10/23/2022 11:2 3 AM EDT 10/24/2022 7:46 AM EDT us Obdulia Elliott MD LAB BLOOD ORDERABLES Final Re sult [facility] [address], [place] [address] [employer] [employer] [facility] 200 [place] [address] * BI Mammogram Diagnostic Tomosynthesis Right (09/27/2022 8:25 AM EDT) Anatomical Region Laterality Modality Breast Right Mammography 09/27/2022 8:25 AM EDT Narrative 09/27/2022 10:17 AM EDT ? [facility] [address] ?[place] [address] ? Mammography Report ? Signed ? Patient: Normandin,Mai ?MR#: [id number] ?? 4 ? : 1985 ?Acct:[id number] ? Age/Sex: 37 / F ?ADM Date: 03/30/23 ? Loc: HO.MAMMO ? Attending Dr: Obdulia Elliott MD ? Ordering Physician: Obdulia Elliott MD ?Results: 3.6MProbably Benign Finding - Short 6 M F/U ?? Suggested ? Date of Service: 09/27/22 ?Follow Up: Surgical Consult ? Procedure(s): MM tomosynthesis diagnostic RT ?? Accession Number(s): [id number] ? cc: Obdulia Elliott MD ? EXAMINATION: ?? MM DIAGNOSTIC DIGITAL BREAST TOMOSYNTHESIS, RIGHT ?? US DIAGNOSTIC ULTRASOUND BREAST, RIGHT ? CLINICAL INFORMATION: ? 37-year-old with chronic tenderness anterior right breast, recently ?? increased with palpable fullness. ? No known family history breast cancer. The lifetime risk of breast ?? cancer based on the Tyrer-Cuzick Model is 11%. ? COMPARISON: ?? Mammography: 03/19/2022, 06/10/2015; right breast ultrasound ?? 05/09/2022, 03/19/2022, 06/10/2015. ? TECHNIQUE: ?? Digital breast tomosynthesis is performed in both the craniocaudal and ?? mediolateral oblique views along with computer-aided detection (CAD). ?? Synthesized 2D images are generated from the tomosynthesis. ??Additional ?? right CC view is provided. ? Ultrasound right breast is targeted to the area of clinical concern ?? subareolar and periareolar right breast. Grayscale imaging and color ?? Doppler are performed without and with harmonics. ? FINDINGS: ?? There are scattered areas of fibroglandular density (ACR BI-RADS breast ?? composition Category b). ? There is increased attenuation retroareolar right breast with rounded ?? area of focal parenchymal asymmetry under 2 cm. There is mild smooth ?? thickening of the scan and some mild coarsening of the stromal ?? markings. The axilla is unremarkable. ? Ultrasound demonstrates an oval complicated predominantly cystic nodule ?? adjacent to the deep dermis measuring 1.7 x 1.2 x 1.7 cm. There is ?? increased through-transmission of sound. No associated internal color ?? flow. There is mild hyperemia on color Doppler around this area and ?? involving the areola skin. There are are some scattered minor duct ?? ectasia adjacent to the lesion without intraductal color flow. It is ?? difficult to confirm if the lesion is of dermal origin or adjacent to ?? the deep dermis. ? Results are discussed with the patient at time of visit. Patient has ?? appointment with surgeon this afternoon. Results and management options ?? discussed with Dr. Orosco on 09/27/2022. ? MM/MM tomosynthesis diagnostic RT ?? IMPRESSION: ?? -Complicated predominantly cystic mass retroareolar right breast with ?? surrounding hyperemia, overall size approximately 1.7 x 1.2 x 1.7 cm. ?? Lesion contacts and possibly involves the deep dermis. Differential ?? considerations include abscess, inflamed sebaceous cyst, or other ?? lesion. ? ASSESSMENT: ? BI-RADS 3: Probably Benign ? RECOMMENDATION: ?? Surgical consult. ? This patient's information was entered into a reminder system with a ?? target due date for their next mammogram. ? Dictated By: ?Bernard Tate MD ? Signed By: ?<Electronically signed by Bernard Tate MD in OV> ?09/27/ 1014 ? DD/ ? TD/TT: ? Photographic Engineer: SALGADO ? Procedure Note Quinn, Cruz - 09/27/2022 [facility] [address] [place] [address] Dr. Del Real, [place] [address] Mammography Report Signed Patient: Javy Crow#: [id number] 4 : 1985Acct:[id number] Age/Sex: 37 / FADM Date: 09/27/22 Loc: HO.MAMMO Attending Dr: Obdulia Elliott MD Ordering Physician: Obdulia Elliott MD Results: 3.6MProbably Benign Finding - Short 6 M F/U Suggested Date of Service: 09/27/22Follow Up: Surgical Consult Procedure(s): MM tomosynthesis diagnostic RT Accession Number(s): [id number] cc: Obdulia Elliott MD EXAMINATION: MM DIAGNOSTIC DIGITAL BREAST TOMOSYNTHESIS, RIGHT US DIAGNOSTIC ULTRASOUND BREAST, RIGHT CLINICAL INFORMATION: 37-year-old with chronic tenderness anterior right breast, recently increased with palpable fullness. No known family history breast cancer. The lifetime risk of breast cancer based on the Tyrer-Cuzick Model is 11%. COMPARISON: Mammography: 03/19/2022, 06/10/2015; right breast ultrasound 05/09/2022, 03/19/2022, 06/10/2015. TECHNIQUE: Digital breast tomosynthesis is performed in both the craniocaudal and mediolateral oblique views along with computer-aided detection (CAD). Synthesized 2D images are generated from the tomosynthesis. Additional right CC view is provided. Ultrasound right breast is targeted to the area of clinical concern subareolar and periareolar right breast. Grayscale imaging and color Doppler are performed without and with harmonics. FINDINGS: There are scattered areas of fibroglandular density (ACR BI-RADS breast composition Category b). There is increased attenuation retroareolar right breast with rounded area of focal parenchymal asymmetry under 2 cm. There is mild smooth thickening of the scan and some mild coarsening of the stromal markings. The axilla is unremarkable. Ultrasound demonstrates an oval complicated predominantly cystic nodule adjacent to the deep dermis measuring 1.7 x 1.2 x 1.7 cm. There is increased through-transmission of sound. No associated internal color flow. There is mild hyperemia on color Doppler around this area and involving the areola skin. There are are some scattered minor duct ectasia adjacent to the lesion without intraductal color flow. It is difficult to confirm if the lesion is of dermal origin or adjacent to the deep dermis. Results are discussed with the patient at time of visit. Patient has appointment with surgeon this afternoon. Results and management options discussed with Dr. Orosco on 09/27/2022. MM/MM tomosynthesis diagnostic RT IMPRESSION: -Complicated predominantly cystic mass retroareolar right breast with surrounding hyperemia, overall size approximately 1.7 x 1.2 x 1.7 cm. Lesion contacts and possibly involves the deep dermis. Differential considerations include abscess, inflamed sebaceous cyst, or other lesion. ASSESSMENT: BI-RADS 3: Probably Benign RECOMMENDATION: Surgical consult. This patient's information was entered into a reminder system with a target due date for their next mammogram. Dictated By: Bernard Tate MD Signed By: <Electronically signed by Bernard Tate MD in OV> 09/27/22 1014 DD/ 0825 TD/TT: Photographic Engineer: SALGADO [facility] External Provider IMG BI PROCEDURES Final Result from Last 3 Months or Most Recently Relevant to Health Maintenance Insurance [facility] MEDICARE ADVANTAGE HMO Care Teams Community Representative Relationship Specialty Start Date End Date Obdulia Elliott MD [address] [facility] [place] [address] PCP - General Family Medicine 07/01/18
--- OUTSIDE RECORDS SUMMARY | 2024-08-27 16:58 | XMS_ITS | Encounter Summary ---
Author Organization [employer] Address [address] [facility] 7t [place] [address] Care Team Providers Care Mothercraft Nurse Name Role Phone Obdulia Elliott MD Primary Care Provider [phone] Encounter Details Date Type Department Care Team ([facility] Contact Info) Description 08/26/2024 Telephone [facility] MED & PEDS [address] [place], [place] [phone] Elsi Stephen RN [address] [place], [place] Social History Tobacco Use Types Packs/Day [...] Encounter - Elsi Stephen RN - 08/26/2024 3:21 PM EST Spoke with PCP regarding message below,. Per PCP no refills of Oxycodone, pt can try Lyrica 75mg again that was prescribed on 08/25/24. TC to pt, pt verbalized understanding. documented in this encounter Plan of Treatment Upcoming Encounters Date Type Department Care Team (Late st Contact Info) Description 09/10/2024 11:30 AM EDT Office Visit [facility] MED & PEDS [address] [place] [address] Obdulia Elliott MD 505 [place] [address] documented as of this encounter Visit Diagnoses Not on filedocumented in this encounter Additional Health Concerns Assessment Noted Time PHQ-9 Depression Total Score: 8 02/20/20 24 11:38 AM EDT documented as of this encounter Care Teams Mothercraft Nurse Relationship Specialty Start Date End Date Obdulia Elliott MD 505 [place] [address] PCP - General Family Medicine 07/01/18 documented as of this encounter
--- OUTSIDE RECORDS SUMMARY | 2024-08-27 16:58 | XMS_ITS | Encounter Summary ---
Author Organization [employer] Address [address] [place] [address] 7t [place] [address] Care Team Providers Care Stonework Tracer Name Role Phone Obdulia Elliott MD Primary Care Provider [phone] Reason for Visit * Reason Onset Date Comments Med Refill 08/26/2024 Encounter Details Date Type Department Care Team ([facility] Contact Info) Description 08/26/2024 Telephone [facility] PED[facility] [address] [place] [address] Elsi Stephen, AURA [address] [place] [address] Med Refill Social History Tobacco Use Types [...] Encounter - Elsi Stephen RN - 08/26/2024 11:05 AM EST Message from pt: I had a appointment today she gave me Lyrica I already had that one n it gave me a bad stomach ache if u can send the refill of oxycodone that would be great I don't see anything in your note from 08/26/24 about cont. Oxycodone? Would you like to cont. 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 documented in this encounter Plan of Treatment Upcoming Encounters Date Type Department Care Team (Late st Contact Info) Description 09/10/2024 11:30 AM EDT Office Visit [facility] [address] [place] [address] Obdulia Elliott MD [address] [place] [address] documented as of this encounter Visit Diagnoses Not on filedocumented in this encounter Additional Health Concerns Assessment Noted Time PHQ-9 Depression Total Score: 8 02/20/20 24 11:38 AM EDT documented as of this encounter Care Teams Stonework Tracer Relationship Specialty Start Date End Date Obdulia Elliott MD [address] [place] [address] PCP - General Family Medicine 07/01/18 documented as of this encounter
--- OUTSIDE RECORDS SUMMARY | 2024-08-27 16:58 | XMS_ITS | Encounter Summary ---
Author Organization [employer] Address [address] [place] [address] Care Team Providers Care Toe Stripper Name Role Phone Obdulia Elliott MD Primary Care Provider [phone] Reason for Referral * Consultation (Routine) - Authorized Specialty Diagnoses / Procedures Referred By Contmarcello t Referred To Contact Pharmacy Diagnoses Uncontrolled type 2 diabetes mellitus with hyperglycemia (CMS/HCC) Obdulia Elliott MD [address] [place] [address] Phone: tel: fax: Referral ID Status Reason Start Date Expiration Date Visits Requested Visits Authorized [id number] Authorized Consult and Treat 07/29/2024 07/29/2025 6 6 Encounter Details Date Type Department Care Team (Late st Contact Info) Description 07/29/2024 Orders Only [facility] [address] [place], [place] [phone] Obdulia Elliott MD [address] [place], [place] [phone] Type 2 diabetes mellitus without complication, without long-term current use of insulin (CMS/HCC) (Primary Dx); Uncontrolled type 2 diabetes mellitus with hyperglycemia (CMS/HCC) Social History Tobacco Use Types Packs/Day Years [...] Upcoming Encounters Date Type Department Care Team ([facility] st Contact Info) Description 09/10/2024 11:30 AM EDT Office Visit [facility] MED & PEDS [address] [place] [address] Obdulia Elliott MD [address] [place] [address] Scheduled Referrals Name Type Priority Associated Diagnoses Orde r Schedule Referral to Pharmacy CDTM Outpatient Referral Routine Uncontrolled type 2 diabetes mellitus with hyperglycemia (CMS/HCC) Ordered: 07/29/2024 documented as of this encounter Visit Diagnoses Diagnosis Type 2 diabetes mellitus without complication, without long-term current use of insulin (CMS/HCC)- Primary Uncontrolled type 2 diabetes mellitus with hyperglycemia (CMS/HCC) documented in this encounter Additional Health Concerns Assessment Noted Time PHQ-9 Depression Total Score: 8 02/20/20 24 11:38 AM EDT documented as of this encounter Care Teams Toe Stripper Relationship Specialty Start Date End Date Obdulia Elliott MD [address] [place] [address] PCP - General Family Medicine 07/01/18 documented as of this encounter
--- OUTSIDE RECORDS SUMMARY | 2024-08-27 16:58 | XMS_ITS | Encounter Summary ---
Author Organization [employer] Address [address] [facility] 7t [place] [address] Care Team Providers Care Shampooer Name Role Phone Obdulia Elliott MD Primary Care Provider [phone] Encounter Details Date Type Department Care Team ([facility] Contact Info) Description 04/03/2024 Orders Only [facility] CHC MED & PEDS [address] [place], [place] [phone] Obdulia Elliott MD [address] [place], [place] [phone] Social History Tobacco Use Types Packs/Day Years [...] Description 09/10/2024 11:30 AM EDT Office Visit [facility] MED & PEDS [address] [place] [address] Obdulia Elliott MD [address] [place] [address] documented as of this encounter Visit Diagnoses Not on filedocumented in this encounter Additional Health Concerns Assessment Noted Time PHQ-9 Depression Total Score: 8 02/20/20 24 11:38 AM EDT documented as of this encounter Care Teams Shampooer Relationship Specialty Start Date End Date Obdulia Elliott MD [address] [place] [address] PCP - General Family Medicine 07/01/18 documented as of this encounter
--- OUTSIDE RECORDS SUMMARY | 2024-08-27 16:59 | XMS_ITS | Encounter Summary ---
Author Organization [email or web address] Address [address] [facility] 7 [place] [address] Care Team Providers Care Statistical Machine Mechanic Name Role Phone Obdulia Elliott MD Primary Care Provider Reason for Visit * Reason Onset Date Comments Med Refill 07/14/2024 Encounter Details Date Type Department Care Team (Late st Contact Info) Description 07/14/2024 Telephone [facility] [address] [place] [address] Obdulia Elliott MD [address] [place], [place] [phone] Med Refill Social History Tobacco Use Types [...] encounter Miscellaneous Notes * Telephone Encounter - Susan Peralta - 07/14/2024 8:48 AM EST Tc from pt requesting a callback as she's asking status on med refill for oxycodone , pt states herrefill is due tomorrow but she had to take extra pills.pt notify GI appointment is 07/17/2024 documented in this encounter Plan of Treatment Upcoming Encounters Date Type Department Care Team (Late st Contact Info) Description 09/10/2024 11:30 AM EDT Office Visit [facility] MED & PEDS [address] [place] [address] Obdulia Elliott MD [address] [place] [address] documented as of this encounter Visit Diagnoses Not on filedocumented in this encounter Additional Health Concerns Assessment Noted Time PHQ-9 Depression Total Score: 8 02/20/20 24 11:38 AM EDT documented as of this encounter Care Teams Statistical Machine Mechanic Relationship Specialty Start Date End Date Obdulia Elliott MD [address] [place] [address] PCP - General Family Medicine 07/01/18 documented as of this encounter
--- OUTSIDE RECORDS SUMMARY | 2024-08-27 16:59 | XMS_ITS | Encounter Summary ---
Author Organization [employer] Address [address] [facility] 7 [place] [address] Care Team Providers Care Public Service Administrator Name Role Phone Obdulia Elliott MD Primary Care Provider [phone] Reason for Visit * Reason Onset Date Comments Med Refill 06/05/2024 Encounter Details Date Type Department Care Team (Late st Contact Info) Description 06/05/2024 Telephone [facility] [address] [place] [address] Obdulia Elliott MD [address] [place], [place] [phone] Med Refill Social History Tobacco Use Types [...] * Telephone Encounter - Susan Peralta - 06/05/2024 10:24 AM EST TC from pt requesting medication refill. Medications needing refill : tiZANidine (Zanaflex) 4 MG tablet To be sent to: [facility] #[id number] documented in this encounter Plan of Treatment Upcoming Encounters Date Type Department Care Team (Late st Contact Info) Description 09/10/2024 11:30 AM EDT Office Visit [facility] CHC MED & PEDS [address] [place] [address] Obdulia Elliott MD [address] [place] [address] documented as of this encounter Visit Diagnoses Not on filedocumented in this encounter Additional Health Concerns Assessment Noted Time PHQ-9 Depression Total Score: 8 02/20/20 24 11:38 AM EDT documented as of this encounter Care Teams Public Service Administrator Relationship Specialty Start Date End Date Obdulia Elliott MD [address] [place] [address] PCP - General Family Medicine 07/01/18 documented as of this encounter
--- OUTSIDE RECORDS SUMMARY | 2024-08-27 16:59 | XMS_ITS | Encounter Summary ---
Author Organization [employer] Address [address] [facility] 7t [place] [address] Care Team Providers Care Route Sales Trainee Name Role Phone Obdulia Elliott MD Primary Care Provider [phone] Encounter Details Date Type Department Care Team (Late st Contact Info) Description 02/15/2024 Orders Only [facility] [address] [place], [place] [phone] Amy Corado MD [address] [place], [place] [phone] Social History Tobacco Use Types Packs/Day Years Used Date Smoking Tobacco: Every Day Cigarettes Passive Smoke Exposure: Current Smokeless Tobacco: Never Depression Answer Date Recorded Patient Health Questionnaire-9 Score 14 08/22/2023 Patient Health Questionnaire-9 Score 14 08/22/2023 Last PHQ-9: Questionnaire Data Not on file 0 08/22/2023 Housing Stability Answer Date Recorded What is [...] Answer Date Recorded Patient Health Questionnaire-2 Score 3 08/22/2023 Comments Unknown Sex and Gender Information Value [...] Description 09/10/2024 11:30 AM EDT Office Visit [facility] MED & PEDS [address] [place] [address] Obdulia Elliott MD [address] [place] [address] documented as of this encounter Visit Diagnoses Not on filedocumented in this encounter Additional Health Concerns Assessment Noted Time PHQ-9 Depression Total Score: 14 024 11:44 AM EST documented as of this encounter Care Teams Route Sales Trainee Relationship Specialty Start Date End Date Obdulia Elliott MD [address] [place] [address] PCP - General Family Medicine 07/01/18 documented as of this encounter
--- OUTSIDE RECORDS SUMMARY | 2024-08-27 16:59 | XMS_ITS | Encounter Summary ---
Author Organization [employer] Address [address] [facility] 7 [place] [address] Care Team Providers Care Intelligence Engineer Name Role Phone Obdulia Elliott MD Primary Care Provider [phone] Reason for Visit * Reason Onset Date Comments Med Refill 05/18/2024 Medication Question 05/18/2024 Encounter Details Date Type Department Care Team ([facility] st Contact Info) Description 05/18/2024 Telephone [facility] MEDICINE [address] [place], [place] [phone] Obdulia Elliott MD [address] [place], [place] [phone] Med Refill; Medication Question Social History Tobacco Use Types Packs/Day Years [...] Telephone Encounter - Susi Hartmann RN - 05/27/2024 10:12 AM EST Images from the original note were not included. Triage call regarding Pt portal message below. Pt reports cellulitis on upper outer aspect of right thigh. Pt reports saw a small red spot like a bite on that area and now 4 days later it is reddened area, size of 1/2 dollar and painful. Pt is advised no apts available in [facility] but, offered to come to [facility] in [facility] today open till 4pm to be seen by provider. Pt is requesting antibiotics be ordered. Pt is advised policy is for Pt to be seen first for antibiotics to be prescribed if needed. Pt is advised to go to closest ED or UC if easier for Pt. Pt didn't agree with disposition. Triage ended. Protocol Used: Boil (Skin Abscess) (Adult) Protocol-Based Disposition: See in Office or Video Visit Today Positive Triage Question: * Boil > 1/2 inch across (> 12 mm; larger than a marble) and center is soft or pus colored * All higher-acuity triage questions were negative Care Advice Discussed: * Reassurance and Education - Boil * Treatment for a Boil - General Care Advice * Treatment for a Boil - Moist Heat * Treatment for a Boil - Antibiotic Ointment * Reasons To Call Back - Severe pain or fever occurs - Widespread rash occurs - You become worse Mai Del Real [facility] Med & Peds Nurses (supporting Obdulia Elliott MD)2 hours ago (7:41AM) AN I called 2 days ago a nurse never called me back I have cellulitis on my upper outer thigh I need antibiotics if someone can call them in for me or call me back that would be great * Telephone Encounter - Sarah Baires RN - 05/20/2024 11:59 AM EST Telephone call to patient's pharmacy for clarification. Excessive refills, they will NOT be fillingthe medication as patient requests early refills and should have over 4 month supply of medication.Asked for record of all refills. 07/05/2022 3 months 07/12/23 1 months 08/09 2023 3 months 09/28/23 3 months 12/10/23 3 months 02/17/24 3 months 05/19- will not be processing * Telephone Encounter - Jami Lowe - 05/20/2024 11:48 AM EST Tc from pt calling in to inform spoke with pharmacy and was advice to contact pcp office and informthat they need clarification on medication tiZANidine (Zanaflex) 4 MG tablet . Please call pharmacyto clarify. * Telephone Encounter - Devika Griffith LPN - 05/18/2024 3:24 PM EST Medication was sent to [id number] on 05/07/24 #[phone]. * Telephone Encounter - Susan Peralta - 05/18/2024 3:18 PM EST TC from pt requesting medication refill. Medications needing refill : tiZANidine (Zanaflex) 4 MG tablet To be sent to: [id number] documented in this encounter Plan of Treatment Upcoming Encounters Date Type Department Care Team (Late st Contact Info) Description 09/10/2024 11:30 AM EDT Office Visit [facility] CHC MED & PEDS [address] [place] [address] Obdulia Elliott MD [address] [place] [address] documented as of this encounter Visit Diagnoses Not on filedocumented in this encounter Additional Health Concerns Assessment Noted Time PHQ-9 Depression Total Score: 8 02/20/20 24 11:38 AM EDT documented as of this encounter Care Teams Intelligence Engineer Relationship Specialty Start Date End Date Obdulia Elliott MD [address] [place] [address] PCP - General Family Medicine 07/01/18 documented as of this encounter
[2024-08-28 08:03] LABS: HBS Num1 120.48 mIU/mL (0-7.99); ~HepC Num1 1.63 S/CO (0.00-0.79); ~Hepatitis B Surface Antibody REACTIVE (Nonreactive); ~Hepatitis C Antibody Reactive (Nonreactive)
[2024-08-31 12:07] LABS: HCV Log PCR <1.18 NOT DETECTED Log IU/mL (NOT DETECTED); HepC Viral Load <15 NOT DETECTED IU/mL (NOT DETECTED)
== END 2024-08-27 14:03 | disposition home or self-care (01) ==
LOC: HO.XRAY 14:02
PROVIDERS: Absent Provider Pediatrics; PCP Pediatrics; Visit Provider Nurse Practitioner
DX: M54.9 Dorsalgia, unspecified (principal); Z86.19 Personal history of other infectious and parasitic diseases
CPT/HCPCS: 36415; 72070; 86706; 86803; 87522

== ENCOUNTER → 2024-08-27 14:10 | Outpatient (BNV) | payer MEDICARE, MEDICAID, SELFPAY | PROVIDERS: Absent Provider Pediatrics; PCP Pediatrics; Visit Provider Radiology Diagnostic Radiology | DX: M41.34 Thoracogenic scoliosis, thoracic region (principal) | CPT/HCPCS: 72070 ==

== ENCOUNTER → 2024-08-29 19:42 | Outpatient (BNV) | payer MEDICARE, MEDICAID, SELFPAY | PROVIDERS: PCP Pediatrics; Visit Provider Radiology Diagnostic Radiology | DX: M48.062 Spinal stenosis, lumbar region with neurogenic claudication (principal); M51.27 Other intervertebral disc displacement, lumbosacral region | CPT/HCPCS: 72148 ==

== ENCOUNTER 2024-08-29 20:03 | Outpatient (REF) | payer MEDICARE, MEDICAID, SELFPAY ==
--- NOTE | ~2024-08-29 | MR_ITS ---
CLINICAL HISTORY: chronic back pain radiating to left side abdomen and leg MR lumbar spine without contrast Comparison: MR - MRI LUMBAR SPINE [id number] - 12/30/18 15:01 EDT Findings: The alignment of the lumbar spine is normal. Bone marrow signal is normal. No fracture is seen. Conus is at T12 and distal spinal cord signal intensity is normal. T12-L1: Normal L1-2: Normal L2-3: Normal L3-4: There is a minimal disc bulge. There is no central canal or neuroforaminal stenosis. There is no significant facet arthropathy. L4-5: There is a minimal disc bulge. There is mild central canal stenosis due to facet and and ligamentum flavum hypertrophy. There is no neuroforaminal stenosis. There is mild facet osteoarthritis. L5-S1: There is a disc bulge with large superimposed central disc protrusion causing severe central canal stenosis similar to the prior MRI. There is moderate right and mild left neuroforaminal stenosis. There is no significant facet arthropathy. IMPRESSION: 1. L5-S1 disc bulge with superimposed central disc protrusion causing severe central canal stenosis similar to the prior MRI. 2. Additional degenerative changes as above. This document has been electronically signed by: Edilson Sparks MD on 08/29/2024 21:31:55
--- OUTSIDE RECORDS SUMMARY | 2024-08-29 20:06 | XMS_ITS | Encounter Summary ---
Author Organization [employer] Address [address] [place] [address] 7 [place] [address] Care Team Providers Care Turfgrass Technician Name Role Phone Obdulia Elliott MD Primary Care Provider [phone] Reason for Visit * Reason Comments Med Change Request Encounter Details Date Type Department Care Team ([facility] Contact Info) Description 03/23/2024 Refill [facility] CHC MED & PEDS [address] [place], [place] [phone] Obdulia Elliott MD [address] [place] [address] Social History Tobacco Use Types Packs/Day Years [...] Encounters Date Type Department Care Team ([facility] st Contact Info) Description 09/10/2024 11:30 AM EDT Office Visit [facility] CHC MED & PEDS [address] [place] [address] Obdulia Elliott MD [address] [place] [address] documented as of this encounter Visit Diagnoses Not on filedocumented in this encounter Additional Health Concerns Assessment Noted Time PHQ-9 Depression Total Score: 8 02/20/20 24 11:38 AM EDT documented as of this encounter Care Teams Turfgrass Technician Relationship Specialty Start Date End Date Obdulia Elliott MD [address] [place] [address] PCP - General Family Medicine 07/01/18 documented as of this encounter
--- OUTSIDE RECORDS SUMMARY | 2024-08-29 20:06 | XMS_ITS | Encounter Summary ---
Author Organization [employer] Address [address] [place] [address] Care Team Providers Care Manager Case Management Name Role Phone Obdulia Elliott MD Primary Care Provider [phone] Reason for Visit * Reason Comments Med Refill Encounter Details Date Type Department Care Team ([facility] Contact Info) Description 02/14/2023 Refill [facility] [address] [place], [place] [phone] Florinda Thomas FNP Social History Tobacco Use [...] Description 09/10/2024 11:30 AM EDT Office Visit [facility] CHC MED & PEDS [address] [place] [address] Obdulia Elliott MD [address] [place] [address] documented as of this encounter Visit Diagnoses Not on filedocumented in this encounter Care Teams Manager Case Management Relationship Specialty Start Date End Date Obdulia Elliott MD [address] [place] [address] PCP - General Family Medicine 07/01/18 documented as of this encounter
--- OUTSIDE RECORDS SUMMARY | 2024-08-29 20:06 | XMS_ITS | Encounter Summary ---
Author Organization [employer] Address [address] [facility] 7t [place] [address] Care Team Providers Care Caster Investment Casting Name Role Phone Obdulia Elliott MD Primary Care Provider [phone] Reason for Visit * Reason Comments Med Refill Encounter Details Date Type Department Care Team ([facility] Contact Info) Description 08/03/[address] [facility] CHC MED & PEDS [address] [place], [place] [phone] Marci Valiente MD [address] [place], [place] [phone] Chronic bilateral low back pain without sciatica [...] Upcoming Encounters Date Type Department Care Team ([facility] st Contact Info) Description 09/10/2024 11:30 AM EDT Office Visit [facility] MED & PEDS [address] [place] [address] Obdulia Elliott MD [address] [place] [address] documented as of this encounter Visit Diagnoses Diagnosis Chronic bilateral low back pain without sciatica documented in this encounter Additional Health Concerns Assessment Noted Time PHQ-9 Depression Total Score: 8 02/20/20 24 11:38 AM EDT documented as of this encounter Care Teams Caster Investment Casting Relationship Specialty Start Date End Date Obdulia Elliott MD [address] [place] [address] PCP - General Family Medicine 07/01/18 documented as of this encounter
--- OUTSIDE RECORDS SUMMARY | 2024-08-29 20:06 | XMS_ITS | Encounter Summary ---
Author Organization [employer] Address [address] [place] [address] Care Team Providers Care Recreation Attendant Supervisor Name Role Phone Obdulia Elliott MD Primary Care Provider [phone] Reason for Referral * Imaging (Routine) - Authorized Specialty Diagnoses / Procedures Referred By Contac t Referred To Contact Radiology Diagnoses Pelvic pain Cyst of left ovary Procedures US Pelvis Transvaginal Obdulia Elliott MD [address] [place] [address] Phone: tel: fax: [address] Phone: tel: fax: Referral ID Status Reason Start Date Expiration Date V isits Requested Visits Authorized [id number] Authorized 08/19/2024 08/19/2025 1 1 * Imaging (Routine) - Authorized Specialty Diagnoses / Procedures Referred By Contac t Referred To Contact Radiology Diagnoses Pelvic pain Cyst of left ovary Procedures Us Pelvis complete Obdulia Elliott MD [address] [place] [address] Phone: tel: fax: [address] Phone: tel: fax: Referral ID Status Reason Start Date Expiration Date V isits Requested Visits Authorized [id number] Authorized 08/19/2024 08/19/2025 1 1 Encounter Details Date Type Department Care Team ([facility] st Contact Info) Description 08/19/2024 Orders Only [facility] CHC MED & PEDS [address] [place] [address] Obdulia Elliott MD [address] [place] [address] Pelvic pain (Primary Dx); Cyst of left [...] Description 09/10/2024 11:30 AM EDT Office Visit [facility] CHC MED & PEDS [address] [place] [address] Obdulia Elliott MD [address] [place] [address] Scheduled Orders Name Type Priority Associated Diagnoses [...] documented as of this encounter Care Teams Recreation Attendant Supervisor Relationship Specialty Start Date End Date Obdulia Elliott MD [address] [place] [address] PCP - General Family Medicine 07/01/18 documented as of this encounter
--- OUTSIDE RECORDS SUMMARY | 2024-08-29 20:06 | XMS_ITS | Encounter Summary ---
Author Organization [employer] Address [address] [facility] 7t [place] [address] Care Team Providers Care Industrial Sales Manager Name Role Phone Obdulia Elliott MD Primary Care Provider [phone] Encounter Details Date Type Department Care Team ([facility] Contact Info) Description 08/26/2024 Telephone [facility] CHC MED & PEDS [address] [place], [place] [phone] Elsi Stephen RN [address] [place], [place] Social History Tobacco Use Types Packs/Day [...] Description 09/10/2024 11:30 AM EDT Office Visit [facility] CHC MED & PEDS [address] [place] [address] Obdulia Elliott MD [address] [place] [address] documented as of this encounter Visit Diagnoses Not on filedocumented in this encounter Additional Health Concerns Assessment Noted Time PHQ-9 Depression Total Score: 8 02/20/20 24 11:38 AM EDT documented as of this encounter Care Teams Industrial Sales Manager Relationship Specialty Start Date End Date Obdulia Elliott MD [address] [place] [address] PCP - General Family Medicine 07/01/18 documented as of this encounter
--- OUTSIDE RECORDS SUMMARY | 2024-08-29 20:06 | XMS_ITS | Encounter Summary ---
Author Organization [employer] Address [address] [place] [address] [place] [address] Care Team Providers Care Gm Mobile Name Role Phone Obdulia Elliott MD Primary Care Provider [phone] Reason for Visit * Reason Comments Med Refill Encounter Details Date Type Department Care Team ([facility] Contact Info) Description 03/21/2023 Refill [facility] MED & PEDS [address] [place], [place] [phone] Marci Valiente MD [address] [place], [place] [phone] Vaginal discharge Social History Tobacco Use Types [...] [facility] [address] [place], [place] [phone] Obdulia Elliott MD [address] [place], [place] [phone] documented as of this encounter Visit Diagnoses Diagnosis Vaginal discharge Leukorrhea, not specified as infective documented in this encounter Care Teams Gm Mobile Relationship Specialty Start Date End Date Obdulia Elliott MD [address] [place] [address] PCP - General Family Medicine 07/01/18 documented as of this encounter
--- OUTSIDE RECORDS SUMMARY | 2024-08-29 20:06 | XMS_ITS | Encounter Summary ---
Author Organization [employer] Address [address] [facility] 7 [place] [address] Care Team Providers Care Home Staging Specialist Name Role Phone Obdulia Elliott MD Primary Care Provider [phone] Reason for Visit * Reason Onset Date Comments Med Refill 08/27/2024 Encounter Details Date Type Department Care Team ([facility] st Contact Info) Description 08/27/2024 Refill [facility] CHC MED & PEDS [address] [place] [address] Marci Valiente MD [address] [place] [address] Chronic bilateral low back pain without sciatica [...] Upcoming Encounters Date Type Department Care Team ([facility] st Contact Info) Description 09/10/2024 11:30 AM EDT Office Visit [facility] MED & PEDS [address] [place] [address] Obdulia Elliott MD [address] [place] [address] documented as of this encounter Visit Diagnoses Diagnosis Chronic bilateral low back pain without sciatica documented in this encounter Additional Health Concerns Assessment Noted Time PHQ-9 Depression Total Score: 8 02/20/20 24 11:38 AM EDT documented as of this encounter Care Teams Home Staging Specialist Relationship Specialty Start Date End Date Obdulia Elliott MD [address] [place] [address] PCP - General Family Medicine 07/01/18 documented as of this encounter
--- OUTSIDE RECORDS SUMMARY | 2024-08-29 20:06 | XMS_ITS | Encounter Summary ---
Author Organization [employer] Address [address] [facility] 7 [place] [address] Care Team Providers Care Taxi Truck Driver Name Role Phone Obdulia Elliott MD Primary Care Provider [phone] Reason for Visit * Reason Onset Date Comments Med Refill 04/13/2024 Encounter Details Date Type Department Care Team ([facility] st Contact Info) Description 04/13/2024 Refill [facility] CHC MED & PEDS [address] [place] [address] Obdulia Elliott MD [address] [place] [address] Chronic bilateral low back pain without sciatica [...] Upcoming Encounters Date Type Department Care Team ([facility] st Contact Info) Description 09/10/2024 11:30 AM EDT Office Visit [facility] MED & PEDS [address] [place] [address] Obdulia Elliott MD [address] [place] [address] documented as of this encounter Visit Diagnoses Diagnosis Chronic bilateral low back pain without sciatica documented in this encounter Additional Health Concerns Assessment Noted Time PHQ-9 Depression Total Score: 8 02/20/20 24 11:38 AM EDT documented as of this encounter Care Teams Taxi Truck Driver Relationship Specialty Start Date End Date Obdulia Elliott MD [address] [place] [address] PCP - General Family Medicine 07/01/18 documented as of this encounter
--- OUTSIDE RECORDS SUMMARY | 2024-08-29 20:06 | XMS_ITS | Encounter Summary ---
Author Organization [employer] Address [address] [facility] 7 [place] [address] Care Team Providers Care Maori Physiotherapist Name Role Phone Obdulia Elliott MD Primary Care Provider [phone] Reason for Visit * Reason Onset Date Comments Med Refill 04/21/2024 Encounter Details Date Type Department Care Team ([facility] st Contact Info) Description 04/21/2024 Refill [facility] CHC MED & PEDS [address] [place] [address] Obdulia Elliott MD [address] [place] [address] Chronic bilateral low back pain without sciatica [...] Upcoming Encounters Date Type Department Care Team ([facility] st Contact Info) Description 09/10/2024 11:30 AM EDT Office Visit [facility] MED & PEDS [address] [place] [address] Obdulia Elliott MD [address] [place] [address] documented as of this encounter Visit Diagnoses Diagnosis Chronic bilateral low back pain without sciatica documented in this encounter Additional Health Concerns Assessment Noted Time PHQ-9 Depression Total Score: 8 02/20/20 24 11:38 AM EDT documented as of this encounter Care Teams Maori Physiotherapist Relationship Specialty Start Date End Date Obdulia Elliott MD [address] [place] [address] PCP - General Family Medicine 07/01/18 documented as of this encounter
--- OUTSIDE RECORDS SUMMARY | 2024-08-29 20:06 | XMS_ITS | Encounter Summary ---
Author Organization [employer] Address [address] [facility] 7 [place] [address] Care Team Providers Care Optical Technician Name Role Phone Obdulia Elliott MD Primary Care Provider [phone] Reason for Visit * Reason Onset Date Comments Med Refill 04/17/2024 Encounter Details Date Type Department Care Team ([facility] st Contact Info) Description 04/17/2024 Refill [facility] CHC MED & PEDS [address] [place] [address] Obdulia Elliott MD [address] [place] [address] Chronic bilateral low back pain without sciatica [...] Upcoming Encounters Date Type Department Care Team ([facility] st Contact Info) Description 09/10/2024 11:30 AM EDT Office Visit [facility] MED & PEDS [address] [place] [address] Obdulia Elliott MD [address] [place] [address] documented as of this encounter Visit Diagnoses Diagnosis Chronic bilateral low back pain without sciatica documented in this encounter Additional Health Concerns Assessment Noted Time PHQ-9 Depression Total Score: 8 02/20/20 24 11:38 AM EDT documented as of this encounter Care Teams Optical Technician Relationship Specialty Start Date End Date Obdulia Elliott MD [address] [place] [address] PCP - General Family Medicine 07/01/18 documented as of this encounter
--- OUTSIDE RECORDS SUMMARY | 2024-08-29 20:06 | XMS_ITS | Clinical Summary ---
Author Organization [employer] Address [address] [facility] 7[address] [place] [address] Care Team Providers Care Director [employer] Name Role Phone Obdulia Elliott MD Primary Care Provider [phone] Allergies Active Allergy Reactions Criticality Noted Date [...] (Jardiance) 25 MGIndications:Di abetes mellitus without complication (CMS/[facility]) Take 1 tablet (25 mg) by mouth Once per day. 30 tablet 11 024 2024 Active glucose blood (FREESTYLE LITE) test stripIndications :Type 2 diabetes mellitus without complication, without long-term current use of insulin ([facility]) Check BS tid 100 strip 11 Active [...] LITE test stripIndications :Diabetes mellitus without complication ([facility]) Use to test blood sugar 1-2 times daily 100 each 12 024 2024 Active Lancets miscIndications: Diabetes mellitus without complication ([facility]/HCC) Use to test blood sugar 1-2 times daily 100 each Active Alcohol Swabs 70 % padsIndications: Diabetes mellitus without complication ([facility]) Use to test blood sugar 1-2 times daily 100 each Active Blood Glucose Monitoring Suppl (FreeStyle [place] Lite) w/Device kitIndications:D iabetes mellitus without complication ([facility]) Use to test blood sugar 1-2 times [...] Date Type Department Care Team Description 08/27/2024 Orders Only [facility] External Provider, [facility] 08/27/2024 Refill [facility] [address] [place] [address] Marci Valiente MD Chronic bilateral low back pain without sciatica 08/26/2024 Telephone [facility] [address] [place] [address] Elsi Stephen RN 08/26/2024 Telephone [facility] [address] [place] [address] Elsi Stephen RN 08/26/2024 Telephone [facility] [address] [place] [address] Elsi Stephen, AURA Med Refill 08/26/2024 Refill [facility] [address] [place] [address] Obdulia Elliott MD Primary hypertension 08/26/2024 Telephone [facility] [address] [place] [address] Obdulia Elliott MD Med Refill 08/25/2024 11:15 AM EST Office Visit [facility] [address] [place] [address] Obdulia Elliott MD Sacroiliitis, not elsewhere classified (CMS/HCC) (Primary Dx); Dietary counseling; Exercise counseling; Uncontrolled type 2 diabetes mellitus with hyperglycemia (CMS/HCC); Back pain of lumbosacral region with sciatica 08/25/2024 Travel 08/19/2024 Orders Only [facility] [address] [place] [address] Obdulia lEliott MD Pelvic pain (Primary Dx); Cyst of left ovary 08/03/2024 Refill [facility] [address] [place] [address] Marci Valiente MD Chronic bilateral low back pain without sciatica 07/29/2024 Orders Only [facility] [address] [place] [phone] Obdulia Elliott MD Type 2 diabetes mellitus without complication, without long-term current use of insulin (CMS/HCC) (Primary Dx); Uncontrolled type 2 diabetes mellitus with hyperglycemia (CMS/HCC) 07/29/2024 Telephone [facility] [address] [place] [address] Nayely Bird PharmD 07/24/2024 Orders Only [facility] [address] [place] [phone] Obdulia Elliott MD History of hepatitis C (Primary Dx) 07/24/2024 Telephone [facility] [address] [place] [address] Sarah Baires, chaplain Orders 07/23/2024 3:30 PM EST Office Visit [facility] [address] [place] [address] Obdulia Elliott MD Diabetes mellitus without complication ([facility]/HCC) (Primary Dx); Primary hypertension; Colitis 07/23/2024 Travel 07/15/2024 Travel 07/14/2024 Telephone [facility] [address] [place] [address] Obdulia Elliott MD 07/14/2024 Telephone [facility] [address] [place] [address] Obdulia Elliott MD Med Refill 07/10/2024 Telephone [facility] [address] [place] [address] Obdulia Elliott MD Med Refill 07/08/2024 Refill [facility] [address] [place] [address] Obdulia Elliott MD Chronic bilateral low back pain without sciatica 07/02/2024 Orders Only [facility] [address] [place] [address] Obdulia Elliott MD Colitis (Primary Dx) 07/02/[address] [address] Obdulia Elliott MD Med Refill 06/29/2024 9:30 AM EST Office Visit [facility] [address] [place] [address] Florinda Dominique, HEAD OF MARKETING Colitis (Primary Dx); Hypokalemia; Encounter for immunization; Diabetes mellitus without complication ([facility]); Tobacco use 06/29/2024 Refill [facility] [address] [place] [address] Obdulia Elliott MD Colitis 06/29/2024 Orders Only [facility] External Provider, [facility] 06/29/2024 Travel 06/26/2024 Orders Only [facility] [address] [place] [address] Obdulia Elliott MD Colitis (Primary Dx) 06/25/[address] [address] Obdulia Elliott MD Hospital Follow-up; Nurse Triage 06/22/[address] [address] Sarah Baires, EPIC SPECIALIST Follow-up 06/18/2024 Orders Only GENERIC EXTERNAL DATA DEPARTMENT Provider, Generic External Data 06/16/2024 Orders Only GENERIC EXTERNAL DATA DEPARTMENT Provider, Generic External Data 06/11/2024 11:15 AM EST Office Visit [facility] [address] [place] [address] Ever Morris MD Tinkya corporis (Primary Dx) 06/11/2024 Orders Only [facility] [address] [place] [address] Obdulia Elliott MD Chronic bilateral low back pain without sciatica 06/11/2024 Travel 06/06/2024 Refill [facility] [address] [place] [address] Mahsa Franklin MD 06/05/2024 Telephone [facility] [address] [place], [place] [phone] Obdulia Elliott MD Med Refill from Last [...] 09/10/2024 11:30 AM EDT Office Visit [facility] [address] [place] [address] Obdulia Elliott MD [address] [place] [address] Health Maintenance Due Date Last Done Comments [...] 2 - PCV) 2003 COVID-19 Vaccine ( season) 2024 01/16/2021, 12/26/2020 SDOH Screening 08/14/2024 08/14/2023 Diabetes: Hemoglobin A1C 09/27/202406/29/ 024, 01/07/2024, 11/22/2023, Additional history exists Mammogram [...] Procedure Name Priority Date/Time Associated Diagnosis Comments XR THORACIC SPINE 2 VIEWS Routine 08/28/2024 12:54 PM EST HEPATITIS C AB W/REFL TO HCV RNA, QN, PCR Routine 08/27/2024 2:59 PM EST History of hepatitis C HEPATITIS B SURFACE ANTIBODY, QUALITATIVE Routine 08/27/2024 2:59 PM EST History of hepatitis C HCG, TOTAL, QN Routine 06/29/2024 1:04 PM [...] Recently Relevant to Health Maintenance Results * XR Thoracic Spine 2 Views (08/28/2024 12:54 PM EST) Anatomical Region Laterality Modality Spine, T-spine Radiographic Dilma ging 08/28/2024 12:5 4 PM EST Narrative 08/28/2024 12:55 PM EST ? [facility] ?[address] ?[place] [address] ?XRay Report ? Signed ? Patient: Normandin,Mai ?MR#: [id number] ?? 4 ? : 1985 ?Acct:[id number] ? Age/Sex: 39 / F ?ADM Date: 08/27/24 ? Loc: HO.XRAY ? Attending Dr: Halima KIM-C ? Ordering Physician: Halima Breen ?? Date of Service: 08/27/24 ?? Procedure(s): XR thoracic spine 2V ?? Accession Number(s): [id number] ? cc: Obdulia Elliott MD; Halima Breen-C ? CLINICAL HISTORY: M54.9 - Dorsalgia, unspecified ? 3 views thoracic spine ? Comparison: None ? Findings: ?? The vertebral body heights are preserved. Small anterior vertebral body ?? osteophytes. ?? Intervertebral disc spaces are maintained. ?? No fractures are present. ?? Pedicles intact. ?? Paraspinal lines are normal. ?? Normal thoracic kyphosis. Mild levoscoliosis. ?? Normal bone mineralization. ? Impression: ?? 1. No compression fractures or listhesis. ?? 2. Mild levoscoliosis. ? This document has been electronically signed by: Praveen Sherwood MD on ?? 08/28/2024 12:54:00 ? Dictated By: ?Praveen Sherwood MD ? Signed By: ?<Electronically signed by Praveen Sherwood MD in OV> ?08/28/24 1255 ? DD/ 1254 ? TD/TT: 08/28/24 1254 ? Machine Sewer: ? Procedure Note Cruz Ball - 08/28/[address] [address] XRay Report Signed Patient: Mai Crow#: [id number] 4 : 1985Acct:[id number] Age/Sex: 39 / FADM Date: 08/27/24 Loc: HO.XRAY Attending Dr: Halima ALONZO Ordering Physician: Halima Breen Date of Service: 08/27/24 Procedure(s): XR thoracic spine 2V Accession Number(s): [id number] cc: Obdulia Elliott MD; Halima Breen CLINICAL HISTORY: M54.9 - Dorsalgia, unspecified 3 views thoracic spine Comparison: None Findings: The vertebral body heights are preserved. Small anterior vertebral body osteophytes. Intervertebral disc spaces are maintained. No fractures are present. Pedicles intact. Paraspinal lines are normal. Normal thoracic kyphosis. Mild levoscoliosis. Normal bone mineralization. Impression: 1. No compression fractures or listhesis. 2. Mild levoscoliosis. This document has been electronically signed by: Praveen Sherwood MD on 08/28/2024 12:54:00 Dictated By: Praveen Sherwood MD Signed By: <Electronically signed by Praveen Sherwood MD in OV> 08/28/24 1255 DD/ 1254 TD/TT: 08/28/24 1254 Machine Sewer: [facility] External Provider IMG XR PROCEDURES Final Result * (ABNORMAL) Hepatitis C Antibody with Reflex to HCV, RNA, Quantitative, Real- Time PCR (08/27/2024 2:59 PM EST) Hepatitis C Antibody Reactive( A) Nonreactive [facility] Comment:Presumptive evidence of antibodies to HCV. Blood Venous blood specimen / Unknown 08/27/2024 2:59 PM EST 08/27/2024 2:59 PM EST Obdulia Elliott MD LAB BLOOD ORDERABLES Final Re sult [facility] [address] [place] [phone] * Hepatitis B Surface Antibody, Qualitative (08/27/2024 2:59 PM EST) ~Hepatitis B Surface Antibody REACTIVE Nonreactive [facility] Comment:REACTIVE: > 11.99 mI U/mL Blood Venous blood specimen / Unknown 08/27/2024 2:59 PM EST 08/27/2024 2:59 PM EST us Obdulia Elliott MD LAB BLOOD ORDERABLES Final Re sult Performing Organization Address City/[facility]/ZIP Co de Phone Number [facility] [address] [place] [address] [phone] * (ABNORMAL) Urinalysis, Complete, with Reflex to Culture (06/29/2024 1:04 PM EST) Only the most recent of2 resultswithin the time period is included. Pathologist [facility] Color Urine Yellow [facility] Appearance Urine Clear [facility] PH 7.5 5.0 - 9.0 [facility] Glucose Urine UA >=1000(A) Negative mg/dL [facility] Urine Blood Negative Negative [facility] Specific [place] - Urine 1.025 1.005 - 1.025 [facility] Urine Protein Negative Neg-Trace mg/dL [facility] Urine Ketones Negative Negative mg/dL [facility] Nitrite Urine Negative Negative [facility] Leukocyte Esterase Urine Negative Negative [facility] RBC Urine 0-2 0 - 2 /HPF [facility] Urine WBC 0-5 0 - 5 /HPF [facility] Urine Squamous Epithelial Cell 3-5 0 - 2 /HPF [facility] Urine Bacteria Trace None Seen [facility] Hyaline Casts, Urine 0-2 0 - 2 /LPF [facility] 06/29/2024 1:04 PM EST 06/29/2024 1:09 PM EST Narrative [facility] - 06/29/2024 1:16 PM EST [id number], Clean Catch us Generic External Data Provider LAB URINE ORDERAB LES Final Result [facility] [address] [place] [address] [phone] * (ABNORMAL) CBC auto differential (06/29/2024 1:04 PM EST) Only the most recent of2 resultswithin the time period is included. White Blood Count 11.1(H) 4.8 - 10.8 X10*3/uL [facility] Red Blood Count 4.58 4.20 - 5.50 X10*6/uL [facility] Hemoglobin 14.7 12.0 - 16.0 g/dl [facility] Hematocrit 42.4 37.0 - 47.0 % [facility] Mean Corpuscular Volume 92.6 80.0 - 98.0 fL [facility] Mean Corpuscular Hemoglobin 32.1 27.0 - 33.0 pg [facility] Mean Corpuscular HGB Conc 34.7 31.0 - 35.0 g/dl [facility] Red Cell Distribution Width 12.5 11.0 - 16.0 % [facility] Platelet Count 253 160 - 400 X10*3/uL [facility] Mean Platelet Volume 10.1 9.4 - 12.3 fL [facility] Neutrophils Percent Auto 68.1 45 - 73 % [facility] Imm Gran Pct Auto 1.3(H) 0.0 - 0.4 % [facility] Lymphocytes Percent Auto 23.5 20 - 40 % [facility] Monocytes Percent Auto 5.8 2 - 11 % [facility] Eosinophils Percent Auto 0.8 0 - 4 % [facility] Basophils Percent Auto 0.5 0 - 2 % [facility] NRBC Pct Auto 0.0 0.0 - 0.2 /100WBC [facility] Neutrophils Absolute Auto 7.5 2.0 - 8.3 x10*3/uL [facility] Imm Gran Abs Auto 0.14(H) 0.00 - 0.03 X10*3/uL [facility] Lymphocytes Absolute Auto 2.6 1.2 - 4.9 X10*3/uL [facility] Monocytes Absolute Auto 0.6 0.1 - 1.2 X10*3/uL [facility] Eosinophils Absolute Auto 0.1 0.0 - 0.4 X10*3/uL [facility] Basophils Absolute Auto 0.1 0.0 - 0.2 X10*3/uL [facility] NRBC Abs Auto 0.000 0.0 - 0.012 X10*3/uL [facility] 06/29/2024 1:04 PM EST 06/29/2024 1:09 PM EST Generic External Data Provider LAB BLOOD ORDERAB LES Final Result Performing Organization Address [facility] de Phone Number [facility] [address] [place] [phone] * hCG, Total, Quantitative (06/29/2024 1:04 PM EST) Only the most recent of2 resultswithin the time period is included. HCG Quantitative <2 mIU/mL [facility] Comment:Weeks post LMP Appro ximate hCG(Last Menstrual Period) Range (mIU/ml)3 - 4 weeks 9 - 1304 - 5 weeks 75 - 2,6005 - 6 weeks 850 - 20,8006 - 7 weeks 4000 - 100,2007 - 12 weeks 11,500 - 289,50661 - 16 weeks 18,300 - 137,74614 - 29 weeks (2nd trimester) 1,400 - 53,77542 - 41 weeks (3rd trimester) 940 - [...] ORDERAB LES Final Result Performing Organization Address City/[facility]/ZIP Co de Phone Number [facility] [address] [place] [address] [phone] * Lipase (06/29/2024 1:04 PM EST) Only the most recent of2 resultswithin the time period is included. Lipase 21 8 - 78 U/L [facility] 06/29/2024 1:04 PM EST 06/29/2024 1:09 PM EST us Generic External Data Provider LAB BLOOD ORDERAB LES Final Result Performing Organization Address [facility] Co de Phone Number [facility] [address] [place] [address] [phone] * (ABNORMAL) Comprehensive Metabolic Panel (06/29/2024 1:04 PM EST) Only the most recent of2 resultswithin the time period is included. Sodium 139 135 - 145 mmol/L [facility] Potassium 4.4 3.3 - 5.1 mmol/L [facility] Chloride 109(H) 96 - 108 mmol/L [facility] Carbon Dioxide 23 22 - 29 mmol/L [facility] Anion Gap 11(L) 12 - 20 [facility] Urea Nitrogen (BUN) 7(L) 9 - 16 mg/dL [facility] Creatinine, Serum 0.68 0.5 - 1.4 mg/dL [facility] Creatinine Clr Calc Pharmacy 108.4 [facility] Comment:Provided height and weight: 157.48 cm,79.379 kg.eGFR (calculated from the MDRD study equation) and eCrCl(calculated from the Cockcroft-Gault equation) are based ondifferent parameters and may not yield comparable results.If eCrCl result is absurd, please check patient'sheight/weight. Estimated Glomerular Filt Rate >60 [facility] Comment:Chronic Kidney Disea se: Estimated GFR < 60 mL/min/1.01t0Fziled Kidney Disease: Estimated GFR < 15 mL/min/1.73m2 Glucose 207(H) 60 - 115 mg/dL [facility] Calcium 9.1 8.4 - 10.2 mg/dL [facility] Bilirubin, Total 0.2 0.0 - 1.0 mg/dL [facility] Aspartate Amino Transferase 31 5 - 31 U/L [facility] Alanine Aminotransferase 39(H) 0 - 31 U/L [facility] Total Protein 7.2 6.5 - 8.0 g/dL [facility] Albumin Level 4.3 3.5 - 5.0 g/dL [facility] Alkaline Phosphatase 75 39 - 117 U/L [facility] 06/29/2024 1:04 PM EST 06/29/2024 1:09 PM EST us Generic External Data Provider LAB BLOOD ORDERAB LES Final Result [facility] [address] [place] [address] [phone] * XR KUB and Upright 2 Views (06/29/2024 12:19 PM EST) Anatomical Region Laterality Modality Radiographic Dilma ging 06/29/2024 12:1 9 PM EST Narrative 06/29/2024 12:53 PM EST ? [facility] ?[address] ?[place] [address] ?XRay Report ? Signed ? Patient: Normandin,Mai ?MR#: [id number] ?? 4 ? : 1985 ?Acct:[id number] ? Age/Sex: 38 / F ?ADM Date: 12/30/24 ? Loc: HO.ED ? Attending Dr: ? Ordering Physician: Scooby Chavez ?? Date of Service: 12/30/24 ?? Procedure(s): XR KUB ?? Accession Number(s): [id number] ? cc: Obdulia Elliott MD; Scooby Chavez [...] 12:51 PM EST RP ? Dictated By: ?La,Osei S ? Signed By: ?<Electronically signed by Osei S MD La in OV> ?06/29/24 1251 ? DD/ 1219 ? TD/TT: 06/29/24 1231 ? Machine Sewer: MSM ? Procedure Note Donshannonaldaircolleenter, Image - 06/29/2024 [place] [address] XRay Report Signed Patient: Javy Crow#: [id number] 4 : 1985Acct:[id number] Age/Sex: 38 / FADM Date: 06/29/24 Loc: HO.ED Attending Dr: Ordering Physician: Scooby Chavez Date of Service: 06/29/24 Procedure(s): XR KUB Accession Number(s): [id number] cc: Obdulia Elliott MD; Scooby Chavez EXAMINATION: [...] 06/29/24 1251 DD/ 1219 TD/TT: 06/29/24 1231 Machine Sewer: [facility] External Provider IMG XR PROCEDURES Final Result * (ABNORMAL) POCT HGB A1C (06/29/2024 10:01 AM EST) Pathologist [facility] Hemoglobin A1C 10.2(A) 4.0 - 6.0 % QC Media Lot # [id number] Lot# Expiration Date 812,026 Blood 06/29/2024 10:0 1 AM EST Florinda Radhasoco HEAD OF MARKETING POINT OF CARE TEST ENTER/EDIT ORDERABLES Final Result * (ABNORMAL) POCT Glucose (06/29/2024 10:01 AM EST) Pathologist [facility] Glucose Blood, POC 232(A) 60 - 200 mg/dL Comment:Random QC Media Lot # [id number] Lot# Expiration Date 482,025 Blood Capillary blood specimen / Unknown 06/29/2024 10:01 AM EST Florinda Dominique HEAD OF MARKETING POINT OF CARE TEST ENTER/EDIT ORDERABLES Final Result * CT Chest w/o Contrast (06/19/2024 6:45 PM EST) Anatomical Region Laterality Modality Body, Chest Computed Tomogra phy 06/19/2024 6:45 PM EST Narrative 06/20/2024 1:29 PM EST ? [facility] ?[address] ?[place] [address] ? CT Scan Report ? Signed ? Patient: Normandin,Mai ?MR#: [id number] ?? 4 ? : 1985 ?Acct:[id number] ? Age/Sex: 38 / F ?ADM Date: 12/19/24 ? Loc: HO.IMC ?462-1 ? Attending Dr: Katelyn Schmitt MD ? Ordering Physician: Katelyn Schmitt MD ?? Date of Service: 06/19/24 ?? Procedure(s): CT chest wo IV con ?? Accession Number(s): [id number] ? cc: Obdulia Elliott MD; Katelyn Schmitt [...] DLP: ?? 407 mGy-cm ? FINDINGS: ? DIAL BRUSHER: LINES/TUBES: [facility] reviewed, no lines. ? LUNGS: ?? Lung [...] DD/ 1845 ? TD/TT: 06/19/24 1906 ? Machine Sewer: HS ? Procedure Note Quinn, Image - 06/20/[address] [place] [address] [address] Scan Report Signed Patient: Javy Crow#: [id number] 4 : 1985Acct:[id number] Age/Sex: 38 / FADM Date: 06/18/24 Loc: [facility] 462-[address]: Katelyn Schmitt MD Ordering Physician: Katelyn Schmitt MD Date of Service: 06/19/24 Procedure(s): CT chest wo IV con Accession Number(s): [id number] cc: Obdulia Elliott MD; Katelyn Schmitt MD [...] CONTRAST: Noncontrasted study. DLP: 407 mGy-cm FINDINGS: DIAL BRUSHER: LINES/TUBES: [facility] reviewed, no lines. LUNGS: Lung parenchyma: No [...] 06/20/24 1326 DD/ 1845 TD/TT: 06/19/24 1906 Machine Sewer: HS [facility] External Provider IMG CT PROCEDURES Edited Result - Final * C-reactive Protein (06/18/2024 5:11 PM EST) C Reactive Protein 0.28 < or = 0.50 mg/dL [facility] 06/18/2024 5:11 PM EST 06/18/2024 5:14 PM EST Generic External Data Provider LAB BLOOD ORDERAB LES Final Result Performing Organization Address [facility] Co de Phone Number [facility] [address] [place] [address] [phone] * Magnesium (06/18/2024 5:11 PM EST) Pathologist [facility] Magnesium 2.1 1.6 - 2.6 mg/dL [facility] 06/18/2024 5:11 PM EST 06/18/2024 5:14 PM EST Generic External Data Provider LAB BLOOD ORDERAB LES Final Result Performing Organization Address [facility] Co de Phone Number [facility] [address] [place] [phone] * Sed Rate by Modified [place] (06/18/2024 5:01 PM EST) Erythrocyte Sedimentation Rate 8 0 - 20 MM/HR [facility] Comment:Patients with polycy themia and many hemoglobin abnormalitiesmay have depressed sed rates whereas patients with anemiamay have elevated sed rates. 06/18/2024 5:01 PM EST 06/18/2024 5:11 PM EST Generic External Data Provider LAB BLOOD ORDERAB LES Final Result Performing Organization Address [facility] de Phone Number [facility] [address] [place] [phone] * Prothrombin Time-INR (06/18/2024 5:01 PM EST) Prothrombin Time 11.8 10.9 - 12.4 SEC [facility] INTERNATIONAL NORM RATIO 1.0 0.9 - 1.1 [facility] Comment:INTERNATIONAL NORMAL IZED RATIO (INR) REFERENCE [...] ORDERAB LES Final Result Performing Organization Address [facility] de Phone Number [facility] [address] [place] [phone] * Lactic Acid (06/18/2024 5:01 PM EST) Only the most recent of2 resultswithin the time period is included. Lactic Acid 1.1 0.5 - 2.0 mmol/L [facility] 06/18/2024 5:01 PM EST 06/18/2024 5:11 PM EST us Generic External Data Provider LAB BLOOD ORDERAB LES Final Result Performing Organization Address [facility] Co de Phone Number [facility] [address] [place] [phone] * Lactic Acid (06/16/2024 10:25 PM EST) Lactic Acid 1.3 0.5 - 2.0 mmol/L [facility] 06/16/2024 10:2 5 PM EST 06/16/2024 10:27 PM EST Generic External Data Provider LAB BLOOD ORDERAB LES Final Result Performing Organization Address [facility] de Phone Number [facility] [address] [place] [phone] * Blood Culture (Second) (06/16/2024 8:29 PM EST) Blood Venous blood specimen / Unknown 06/16/2024 8:29 PM EST 06/16/2024 8:36 PM EST Comment:Blood [facility] - 06/21/2024 10:36 PM EST Blood Culture (Second) No growth after 5 days. Specimen Source: Blood Generic External Data Provider LAB MICROBIOLOGY - GENERAL ORDERABLES Final Result Performing Organization Address [facility] Co de Phone Number [facility] [address] [place] [phone] * Blood Culture (First) (06/16/2024 8:02 PM EST) Blood Venous blood specimen / Unknown 06/16/2024 8:02 PM EST 06/16/2024 8:05 PM EST Comment:Blood [facility] - 06/21/2024 10:05 PM EST Blood Culture (First) No growth after 5 days. Specimen Source: Blood Generic External Data Provider LAB MICROBIOLOGY - GENERAL ORDERABLES Final Result Performing Organization Address City/[facility] Co de Phone Number [facility] [address] [place] [address] [phone] * (ABNORMAL) Glucose, Whole Blood (06/16/2024 7:48 PM EST) Glucose, Whole Blood 366(HH) 60 - 115 mg/dL [facility] Comment:METER #: [id number] 06/16/2024 7:48 PM EST 06/16/2024 7:51 PM EST us Generic External Data Provider LAB BLOOD ORDERAB LES Final Result [facility] [address] [place] [address] [phone] * CT Abdomen Pelvis w/ Contrast (06/16/2024 7:45 PM EST) Anatomical Region Laterality Modality Body, Pelvis, Abdomen Computed T omography 06/16/2024 7:45 PM EST Narrative 06/16/2024 9:57 PM EST ? [facility] ?[address] ?[place] [address] ? CT Scan Report ? Signed ? Patient: Mai Crow ?MR#: [id number] ?? 4 ? : 1985 ?Acct:[id number] ? Age/Sex: 38 / F ?ADM Date: 06/16/24 ? Loc: HO.ED ? Attending Dr: ? Ordering Physician: Damaris Mora ?? Date of Service: 06/16/24 ?? Procedure(s): CT abdomen pelvis w IV con ?? Accession Number(s): [id number] ? cc: Obdulia Elliott MD; Damaris Mora [...] 09:54 PM EST RP ? Dictated By: ?Osei Tovar MD ? Signed By: ?<Electronically signed by Osei Tovar MD in OV> ?06/16/244 ? DD/ 1945 ? TD/TT: 06/16/242021 ? Machine Sewer: MSM ? Procedure Note Quinn, Cruz - 06/16/[address] [place] [address] [address] Scan Report Signed Patient: Javy Crow#: [id number] 4 : 1985Acct:[id number] Age/Sex: 38 / FADM Date: 06/16/24 Loc: HO.ED Attending Dr: Ordering Physician: Damaris Mora Date of Service: 06/16/24 Procedure(s): CT abdomen pelvis w IV con Accession Number(s): [id number] cc: Obdulia Elliott MD; Damaris Mora EXAMINATION: [...] by: Osei Tovar MD 06/16/2024 09:54 PM [facility] Dictated By: Osei Tovar MD Signed By: <Electronically signed by Osei Tovar MD in OV> 06/16/242153 DD/ 44 TD/TT: 06/16/242021 Machine Sewer: [place] [facility] External Provider IMG CT PROCEDURES Final Result * (ABNORMAL) Albumin, Random Urine W/Creatinine (02/20/2024 11:40 AM EDT) Creatinine, Urine 82.08 mg/dL [facility] Microalbumin Urine 50.0 mg/L H [facility] Microalbum Creatinine Ratio Ur 60.9(H) <30 ug/mg cr [facility] Comment:Albumin/Creatinine R atio Reference Ranges: Normal: < 30 ug/mg creatinine Microalbuminuria: 30 - 300 ug/mg creatinineClinical Albuminuria: > 300 ug/mg creatinine Urine (Urine, Random) 02/20/2024 11:40 AM EDT 02/20/2024 2:11 PM EDT us Obdulia Elliott MD LAB URINE ORDERABLES Final Re sult [facility] [address] [place] [address] [phone] * (ABNORMAL) Lipid Panel, Standard (02/20/2024 11:38 AM EDT) Triglycerides 387(H) <150 mg/dL [facility] Comment:Desirable Triglyceri de: less than 150 mg/dLBorderline High Triglyceride 150-199 mg/dLHigh Triglyceride: 200-499 mg/dLVery High Triglyceride: greater than or equal to 5OO mg/dL Cholesterol 284(H) <200 mg/dL [facility] Comment:Desirable Cholestero l: less than 200 mg/dLBorderline High Cholesterol: 200-239 mg/dLHigh Cholesterol: greater than 239 mg/dL LDL Cholesterol Calculated 168(H) <100 mg/dL [facility] Comment:Desirable LDL: less than 100 mg/dLNear Optimal/Above Optimal LDL: 110- 129 mg/dLBorderline High LDL: 130-159 mg/dLHigh LDL: 160-189 mg/dLVery High LDL: greater than or equal to 190 mg/dL HDL Cholesterol 39(L) >40 mg/dL [facility] Comment:Desirable HDL: great er than 40 mg/dL Note: This HDL assay may give artificially low results in patients with liver disease. Blood Venous blood specimen / Unknown 02/20/2024 11:38 AM EDT 02/20/2024 2:14 PM EDT us Obdulia Elliott MD LAB BLOOD ORDERABLES Final Re sult [facility] [address] [place] [address] [phone] * (ABNORMAL) Image-Guided Pap with Age-Based Screening Protocols (10/23/2022 11:23 AM EDT) Comment [employer] Comment: This order for age-based cervical cancer and STI screening follows ACOG guidelines(PB 168, 140, JPD441). See individual assays for performing site location. Clinical Information: None given [facility] LMP: NONE GIVEN [employer] Prev. PAP: NONE GIVEN [employer] Prev. BX: YES [employer] SOURCE: None given [facility]f-pharmat Statement Of Adequacy: [employer] Comment: Satisfactory for evaluation. Endocervical/transformation zone component absent. Interpretation/ Result: Negative for intraepithelial lesion or malignancy. [facility] COMMENT: This Pap test has been evaluated with computer assisted technology. [employer] Cytotechnologis t: [facility]f-pharmat Comment: ZAMORA, CT(ASCP) CT screening location: [address] ??[address] Review [employer]otechnolog[employer] t: nkf-pharmat Comment: DCR, CT(ASCP) CT screening location: [address] ??[phone] (Always Message) [facility]pharm[facility] Comment: EXPLANATORY NOTE: The Pap is a [...] information. HPV nRNA E6/E7 Detected(A) Not Detected [employer] Comment: Methodology: Computer Systems Support Specialist-Mediated Amplification This assay detects E6/E7 viral messenger RNA (mRNA) from 14 high-risk HPV types (16,18,31,33,35,39,45,51,52,56,58,59,66,68). Cervical sources are required for HPV testing. If a vaginal source from a patient who has had a total hysterectomy with removal of cervix was submitted, please contact the testing laboratory for alternative testing options. For additional information, please refer to http://education.[employer]/faq/KYK633h5 (This link if provided for information/ educational purposes only.) Specimen from uterine cervix (specimen) 10/23/2022 11:23 AM EDT 10/24/2022 7:46 AM EDT Obdulia Elliott MD LAB BLOOD ORDERABLES Final Re sult Performing Organization Address [facility] de Phone Number [facility] [address] [phone] [employer] [address] [place] [phone] * HPV Genotypes 16,18/45 (10/23/2022 11:23 AM EDT) HPV 16 RNA NOT DETECTED NOT DETECTED [employer] HPV 18/45 RNA NOT DETECTED NOT DETECTED [employer] Comment: Methodology: Computer Systems Support Specialist Mediated Amplification Cervical sources are required for HPV testing. If a vaginal source from a patient who has had a total hysterectomy with removal of cervix was submitted, please contact the testing laboratory for alternative testing options. 10/23/2022 11:2 3 AM EDT 10/24/2022 7:46 AM EDT us Obdulia Elliott MD LAB BLOOD ORDERABLES Final Re sult Performing Organization Address [facility] de Phone Number [facility] [address], [place] [address] [employer] [place] [employer] [address] [place] [phone] * BI Mammogram Diagnostic Tomosynthesis Right (09/27/2022 8:25 AM EDT) Anatomical Region Laterality Modality Breast Right Mammography 09/27/2022 8:25 AM EDT Narrative 09/27/2022 10:17 AM EDT ? [facility] [place] ? [address] ?[place], [place] [address] ? Mammography Report ? Signed ? Patient: Normandin,Mai ?MR#: [id number] ?? 4 ? : 1985 ?Acct:[id number] ? Age/Sex: 37 / F ?ADM Date: 09/27/ ? Loc: HO.MAMMO ? Attending Dr: Obdulia Elliott MD ? Ordering Physician: Obdulia Elliott MD ?Results: 3.6MProbably Benign Finding - Short 6 M F/U ?? Suggested ? Date of Service: 09/27/ ?Follow Up: Surgical Consult ? Procedure(s): MM tomosynthesis diagnostic RT ?? Accession Number(s): [id number] ? cc: Obdulia Elliott MD ? EXAMINATION: [...] signed by Bernard Tate MD in OV> ?09/27/22 1014 ? DD/ 0825 ? TD/TT: ? Machine Sewer: SALGADO ? Procedure Note Quinn, Cruz - 09/27/2022 [facility] [address] [place] [address] Mammography Report Signed Patient: Javy Crow#: [id number] 4 : 1985Acct:[id number] Age/Sex: 37 / FADM Date: 09/27/22 Loc: HO.MAMMO Attending Dr: Obdulia Elliott MD Ordering Physician: Obdulia Elliott MD Results: 3.6MProbably Benign Finding - Short 6 M F/U Suggested Date of Service: 09/27/22Follow Up: Surgical Consult Procedure(s): MM tomosynthesis diagnostic RT Accession Number(s): [id number] cc: Obdulia Elliott MD EXAMINATION: MM DIAGNOSTIC [...] in OV> 09/27/22 1014 DD/ 0825 TD/TT: Machine Sewer: SALGAD[place] [facility] External Provider IMG BI PROCEDURES Final Result from Last 3 Months or Most Recently Relevant to Health Maintenance Insurance [employer] MEDICARE ADVANTAGE HMO Care Teams Director Water And Waste Services Relationship Specialty Start Date End Date Obdulia Elliott MD [address] [facility] [place] [address] PCP - General Family Medicine 07/01/18
--- OUTSIDE RECORDS SUMMARY | 2024-08-29 20:06 | XMS_ITS | Encounter Summary ---
Author Organization [employer] Address [address] [facility] 7t [place] [address] Care Team Providers Care Speech Language Pathologist Prn Name Role Phone Obdulia Elliott MD Primary Care Provider [phone] Encounter Details Date Type Department Care Team ([facility] Contact Info) Description 08/26/2024 Telephone [facility] MED & PEDS [address] [place], [place] [phone] Elsi Stephen RN [address] [place], [place] Social History Tobacco Use Types Packs/Day [...] Description 09/10/2024 11:30 AM EDT Office Visit [facility] MED & PEDS [address] [place] [address] Obdulia Elliott MD [address] [place] [address] documented as of this encounter Visit Diagnoses Not on filedocumented in this encounter Additional Health Concerns Assessment Noted Time PHQ-9 Depression Total Score: 8 02/20/20 24 11:38 AM EDT documented as of this encounter Care Teams Speech Language Pathologist Prn Relationship Specialty Start Date End Date Obdulia Elliott MD [address] [place] [address] PCP - General Family Medicine 07/01/18 documented as of this encounter
--- OUTSIDE RECORDS SUMMARY | 2024-08-29 20:06 | XMS_ITS | Encounter Summary ---
Author Organization [employer] Address [address] [place] [address] Care Team Providers Care Senior Advisor Name Role Phone Mainor Elliott MD Primary Care Provider [phone] Reason for Referral * Imaging (Routine) - Authorized Specialty Diagnoses / Procedures Referred By Contac t Referred To Contact Radiology Diagnoses Back pain of lumbosacral region with sciatica Procedures MR Lumbar Spine w/o Contrast Mainor Elliott MD [address] [place] [address] Phone: tel: fax: [address] Phone: tel: fax: Referral ID Status Reason Start Date Expiration Date V isits Requested Visits Authorized [id number] Authorized 08/25/2024 08/25/2025 1 1 Encounter Details Date Type Department Care Team (Latest Contact Info) Description 08/25/2024 11:15 AM EST Office Visit 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 Review of Systems Constitutional: Negative for activity [...] Uncontrolled type 2 diabetes mellitus with hyperglycemia (CMS/[facility]) Comments: PLease take meds as prescribed.Trulicity dose [...] AM EDT Office Visit [facility] MED & PEDS [address] [place] [address] Mainor Elliott MD [address] [place] [address] Scheduled Orders Name Type Priority Associated Diagnoses Orde r Schedule MR Lumbar Spine w/o Contrast Imaging Routine Back pain of lumbosacral region with sciatica Expected: 08/25/2024, Expires: 08/25/2025 documented as of this encounter Visit Diagnoses Diagnosis Sacroiliitis, not elsewhere classified ([facility])- Primary Sacroiliitis, not elsewhere classified Dietary counseling Dietary surveillance and counseling Exercise counseling Uncontrolled type 2 diabetes mellitus with hyperglycemia ([facility]) Back pain of lumbosacral region with sciatica documented in this encounter Additional Health Concerns Assessment Noted Time PHQ-9 Depression Total Score: 8 02/20/20 24 11:38 AM EDT documented as of this encounter Care Teams Senior Advisor Relationship Specialty Start Date End Date Mainor Elliott MD [address] [place] [address] PCP - General Family Medicine 07/01/18 documented as of this encounter
--- OUTSIDE RECORDS SUMMARY | 2024-08-29 20:06 | XMS_ITS | Encounter Summary ---
Author Organization [employer] Address [address] [facility] 7t [place] [address] Care Team Providers Care Assistant Casino Shift Manager Name Role Phone Obdulia Elliott MD Primary Care Provider [phone] Encounter Details Date Type Department Care Team ([facility] Contact Info) Description 04/03/2024 Orders Only [facility] CHC MED & PEDS [address] [place], [place] [phone] Obdulia Elliott MD [address] [place], [place] [phone] Social History Tobacco Use Types Packs/Day Years [...] Description 09/10/2024 11:30 AM EDT Office Visit [facility] MED & PEDS [address] [place] [address] Obdulia Elliott MD [address] [place] [address] documented as of this encounter Visit Diagnoses Not on filedocumented in this encounter Additional Health Concerns Assessment Noted Time PHQ-9 Depression Total Score: 8 02/20/20 24 11:38 AM EDT documented as of this encounter Care Teams Assistant Casino Shift Manager Relationship Specialty Start Date End Date Obdulia Elliott MD [address] [place] [address] PCP - General Family Medicine 07/01/18 documented as of this encounter
--- OUTSIDE RECORDS SUMMARY | 2024-08-29 20:06 | XMS_ITS | Clinical Summary ---
Author Organization [facility] Address [address] [place] [address] Care Team Providers Care Line Installer Repairer Name Role Phone Unavailable Primary Care Provider [...]
--- OUTSIDE RECORDS SUMMARY | 2024-08-29 20:06 | XMS_ITS | Encounter Summary ---
Author Organization [employer] Address [address] [facility] [address] 7[address] [place] [address] Care Team Providers Care Shipfitter Name Role Phone Obdulia Elliott MD Primary Care Provider Encounter Details Date Type Department Care Team (Late st Contact Info) Description 08/27/2024 Orders Only [facility] External Provider, [facility] Social History Tobacco Use Types Packs/Day Years [...] Upcoming Encounters Date Type Department Care Team ([facility] st Contact Info) Description 09/10/2024 11:30 AM EDT Office Visit [facility] CHC MED & PEDS [address] [place] [address] Obdulia Elliott MD [address] [place] [address] documented as of this encounter Procedures Procedure Name Priority Date/Time Associated Diagnosis Comments XR THORACIC SPINE 2 VIEWS Routine 08/28/2024 12:54 PM EST documented in this encounter Results * XR Thoracic Spine 2 Views (08/28/2024 12:54 PM EST) Anatomical Region Laterality Modality Spine, T-spine Radiographic Dilma ging 08/28/2024 12:5 4 PM EST Narrative 08/28/2024 12:55 PM EST ? [facility] ?[address] ?[place] [address] ?XRay Report ? Signed ? Patient: Normandin,Mai ?MR#: [id number] ?? 4 ? : 1985 ?Acct:[id number] ? Age/Sex: 39 / F ?ADM Date: //25 ? Loc: HO.XRAY ? Attending Dr: Halima Breen ANP-C ? Ordering Physician: Halima Breen ANP-C ?? Date of Service: 08/27/24 ?? Procedure(s): XR thoracic spine 2V ?? Accession Number(s): [id number] ? cc: Obdulia Elliott MD; Halima Breen ? CLINICAL HISTORY: M54.9 - Dorsalgia, unspecified [...] signed by Praveen Sherwood MD in OV> ?08/28/245 ? DD/ 1254 ? TD/TT: 08/28/24 1254 ? Technical Account Executive: ? Procedure Note Donotaldairinterpreter, Image - 08/28/2024 [place] [address] XRay Report Signed Patient: Javy Crow#: [id number] 4 : 1985Acct:[id number] Age/Sex: 39 / FADM Date: 08/27/24 Loc: HO.BROWN Attending Dr: Halima ALONZO Ordering Physician: Halima Breen Date of Service: 08/27/24 Procedure(s): XR thoracic spine 2V Accession Number(s): [id number] cc: Obdulia Elliott MD; Halima Breen CLINICAL [...] 08/28/24 1255 DD/ 1254 TD/TT: 08/28/24 1254 Technical Account Executive: [facility] External Provider IMG XR PROCEDURES Final Result documented in this encounter Visit Diagnoses Not on filedocumented in this encounter Additional Health Concerns Assessment Noted Time PHQ-9 Depression Total Score: 8 02/20/20 24 11:38 AM EDT documented as of this encounter Care Teams Shipfitter Relationship Specialty Start Date End Date Obdulia Elliott MD [address] [place] [address] PCP - General Family Medicine 07/01/18 documented as of this encounter
--- OUTSIDE RECORDS SUMMARY | 2024-08-29 20:06 | XMS_ITS | Encounter Summary ---
Author Organization [employer] Address [address] [facility] 7 [place] [address] Care Team Providers Care Furnace Puncher Name Role Phone Obdulia Elliott MD Primary Care Provider [phone] Reason for Visit * Reason Onset Date Comments Med Refill 08/26/2024 Encounter Details Date Type Department Care Team (Late st Contact Info) Description 08/26/2024 Telephone [facility] MEDICINE [address] [place] [address] Obdulia Elliott MD [address] [place], [place] [phone] Med Refill Social History Tobacco Use Types [...] 5-325 MG tablet To be sent to: [id number] [place], [place] - [address] [place] [address] AT [facility] documented in this encounter Plan of Treatment Upcoming Encounters Date Type Department Care Team ([facility] st Contact Info) Description 09/10/2024 11:30 AM EDT Office Visit [facility] MED & PEDS [address] [place] [address] Obdulia Elliott MD [address] [place] [address] documented as of this encounter Visit Diagnoses Not on filedocumented in this encounter Additional Health Concerns Assessment Noted Time PHQ-9 Depression Total Score: 8 02/20/20 24 11:38 AM EDT documented as of this encounter Care Teams Furnace Puncher Relationship Specialty Start Date End Date Obdulia Elliott MD [address] [place] [address] PCP - General Family Medicine 07/01/18 documented as of this encounter
--- OUTSIDE RECORDS SUMMARY | 2024-08-29 20:06 | XMS_ITS | Encounter Summary ---
Author Organization [employer] Address [address] [facility] 7 [place] [address] Care Team Providers Care Compensation And Benefits Analyst Name Role Phone Obdulia Elliott MD Primary Care Provider [phone] Reason for Visit * Reason Comments Med Refill Encounter Details Date Type Department Care Team ([facility] st Contact Info) Description 08/26/2024 Refill [facility] MEDICINE [address] [place], [place] [phone] Obdulia Elliott MD [address] [facility] [address] [place], [place] [phone] Primary hypertension Social History Tobacco Use Types [...] Upcoming Encounters Date Type Department Care Team ([facility] st Contact Info) Description 09/10/2024 11:30 AM EDT Office Visit [facility] CHC MED & PEDS [address] [place] [address] Obdulia Elliott MD [address] [place] [address] documented as of this encounter Visit Diagnoses Diagnosis Primary hypertension Unspecified essential hypertension documented in this encounter Additional Health Concerns Assessment Noted Time PHQ-9 Depression Total Score: 8 02/20/20 24 11:38 AM EDT documented as of this encounter Care Teams Compensation And Benefits Analyst Relationship Specialty Start Date End Date Obdulia Elliott MD [address] [place] [address] PCP - General Family Medicine 07/01/18 documented as of this encounter
--- OUTSIDE RECORDS SUMMARY | 2024-08-29 20:06 | XMS_ITS | Encounter Summary ---
Author Organization [employer] Address [address] [facility] 7t [place] [address] Care Team Providers Care Plastic Top Assembler Name Role Phone Obdulia Elliott MD Primary Care Provider [phone] Encounter Details Date Type Department Care Team ([facility] st Contact Info) Description 07/14/[address] [facility] MEDICINE [address] [place], [place] [phone] Obdulia Elliott MD [address] [facility] [address] [place], [place] [phone] Social History Tobacco Use Types Packs/Day Years [...] Description 09/10/2024 11:30 AM EDT Office Visit [facility] MED & PEDS [address] [place] [address] Obdulia Elliott MD [address] [place] [address] documented as of this encounter Visit Diagnoses Not on filedocumented in this encounter Additional Health Concerns Assessment Noted Time PHQ-9 Depression Total Score: 8 02/20/20 24 11:38 AM EDT documented as of this encounter Care Teams Plastic Top Assembler Relationship Specialty Start Date End Date Obdulia Elliott MD [address] [place] [address] PCP - General Family Medicine 07/01/18 documented as of this encounter
--- OUTSIDE RECORDS SUMMARY | 2024-08-29 20:06 | XMS_ITS | Encounter Summary ---
Author Organization [employer] Address [address] [facility] 7 [place] [address] Care Team Providers Care Freight Elevator Erector Name Role Phone Obdulia Elliott MD Primary Care Provider [phone] Reason for Visit * Reason Onset Date Comments Med Refill 05/18/2024 Medication Question 05/18/2024 Encounter Details Date Type Department Care Team ([facility] st Contact Info) Description 05/18/2024 Telephone [facility] MEDICINE [address] [place], [place] [phone] Obdulia Elliott MD [address] [place], [place] [phone] Med Refill; Medication Question Social History Tobacco [...] Pt is advised no apts available in [facility] but, offered to come to [facility] in [facility] today open till 4pm to be seen [...] - You become worse Mai [place] [facility] Med & Peds Nurses (supporting [...] 3:24 PM EST Medication was sent to [id number] on 05/07/24 #[phone]. * Telephone Encounter - Susan Peralta - 05/18/2024 3:18 PM EST TC from pt requesting medication refill. Medications needing refill : tiZANidine (Zanaflex) 4 MG tablet To be sent to: [id number] documented in this encounter Plan of Treatment Upcoming Encounters Date Type Department Care Team (Late st Contact Info) Description 09/10/2024 11:30 AM EDT Office Visit [facility] CHC MED & PEDS [address] [place] [address] Obdulia Elliott MD [address] [place] [address] documented as of this encounter Visit Diagnoses Not on filedocumented in this encounter Additional Health Concerns Assessment Noted Time PHQ-9 Depression Total Score: 8 02/20/20 24 11:38 AM EDT documented as of this encounter Care Teams Freight Elevator Erector Relationship Specialty Start Date End Date Obdulia Elliott MD [address] [place] [address] PCP - General Family Medicine 07/01/18 documented as of this encounter
--- OUTSIDE RECORDS SUMMARY | 2024-08-29 20:06 | XMS_ITS | Encounter Summary ---
Author Organization [employer] Address [address] [place] [address] [place] [address] Care Team Providers Care Job Placement Specialist Name Role Phone Obdulia [place] MD Primary Care Provider Reason for Visit * Reason Comments Med Refill Encounter Details Date Type Department Care Team ([facility] Contact Info) Description 11/23/2022 Refill [facility] MED & PEDS [address] [place] [address] Obdulia [place] MD 505 [place] [address] Social History Tobacco Use Types Packs/Day Years [...] Description 09/10/2024 11:30 AM EDT Office Visit [facility] MED & PEDS [address] [place], [place] [phone] Obdulia [place] MD 505 [place] [address] documented as of this encounter Visit Diagnoses Not on filedocumented in this encounter Care Teams Job Placement Specialist Relationship Specialty Start Date End Date Obdulia [place] MD 505 [place] [address] PCP - General Family Medicine 07/01/18 documented as of this encounter
--- OUTSIDE RECORDS SUMMARY | 2024-08-29 20:06 | XMS_ITS | Encounter Summary ---
Author Organization [employer] Address [address] [facility] 7 [place] [address] Care Team Providers Care Laminating Machine Operator Name Role Phone Obdulia [place] MD Primary Care Provider [phone] Reason for Visit * Reason Onset Date Comments Nurse Triage 04/22/2024 Encounter Details Date Type Department Care Team ([facility] st Contact Info) Description 04/22/2024 Telephone [facility] MEDICINE 230 [place] [address] Obdulia [place] MD 505 [place], [place] [phone] Nurse Triage Social History Tobacco Use Types [...] agrees to try this. ASK apt in [facility] today at 220pm. Unable to check [...] Upcoming Encounters Date Type Department Care Team ([facility] st Contact Info) Description 09/10/2024 11:30 AM EDT Office Visit [facility] MED & PEDS 505 [place] [address] Obdulia [place] MD 505 [place] [address] documented as of this encounter Visit Diagnoses Not on filedocumented in this encounter Additional Health Concerns Assessment Noted Time PHQ-9 Depression Total Score: 8 02/20/20 24 11:38 AM EDT documented as of this encounter Care Teams Laminating Machine Operator Relationship Specialty Start Date End Date Obdulia [place] MD 505 [place] [address] PCP - General Family Medicine 07/01/18 documented as of this encounter
--- OUTSIDE RECORDS SUMMARY | 2024-08-29 20:06 | XMS_ITS | Encounter Summary ---
Author Organization [employer] Address [address] [facility] [address] 7[address] [place] [address] Care Team Providers Care Rn Examiner Name Role Phone Obdulia [place] MD Primary Care Provider [phone] Encounter Details Date Type Department Care Team [...] Encounters Date Type Department Care Team ([facility] st Contact Info) Description 09/10/2024 11:30 AM EDT Office Visit [facility] MED & PEDS 505 [place] [address] Obdulia [place] MD 505 [place] [address] documented as of this encounter Visit Diagnoses Not on filedocumented in this encounter Additional Health Concerns Assessment Noted Time PHQ-9 Depression Total Score: 8 02/20/20 24 11:38 AM EDT documented as of this encounter Care Teams Rn Examiner Relationship Specialty Start Date End Date Obdulia [place] MD 505 [place] [address] PCP - General Family Medicine 07/01/18 documented as of this encounter
--- OUTSIDE RECORDS SUMMARY | 2024-08-29 20:07 | XMS_ITS | Encounter Summary ---
Author Organization [employer] Address [address] [facility] 7t [place] [address] Care Team Providers Care Rides Attendant Name Role Phone Obdulia [place] MD Primary Care Provider [phone] Encounter Details Date Type Department Care Team (Late st Contact Info) Description 02/15/2024 Orders Only [facility] MEDICINE [address] [place], [place] [phone] Amy Corado MD 230 [place], [place] [phone] Social History Tobacco Use Types Packs/Day Years [...] 11:30 AM EDT Office Visit [facility] MED & PEDS 505 [place] [address] Obdulia [place] MD 505 [place] [address] documented as of this encounter Visit Diagnoses Not on filedocumented in this encounter Additional Health Concerns Assessment Noted Time PHQ-9 Depression Total Score: 14 024 11:44 AM EST documented as of this encounter Care Teams Rides Attendant Relationship Specialty Start Date End Date Obdulia [place] MD 505 [place] [address] PCP - General Family Medicine 07/01/18 documented as of this encounter
--- OUTSIDE RECORDS SUMMARY | 2024-08-29 20:07 | XMS_ITS | Encounter Summary ---
Author Organization [employer] Address 75 [facility] 7 [place] [address] Care Team Providers Care Millwright Helper Name Role Phone Obdulia [place] MD Primary Care Provider [phone] Reason for Visit * Reason Onset Date Comments Med Refill 07/14/2024 Encounter Details Date Type Department Care Team (Late st Contact Info) Description 07/14/2024 Telephone [facility] MEDICINE [address] [place] [address] Obdulia [place] MD 505 [place], [place] [phone] Med Refill Social History Tobacco Use Types [...] [facility] MED & PEDS [address] [place] [address] Obdulia [place] MD [address] [place] [address] documented as of this encounter Visit Diagnoses Not on filedocumented in this encounter Additional Health Concerns Assessment Noted Time PHQ-9 Depression Total Score: 8 02/20/20 24 11:38 AM EDT documented as of this encounter Care Teams Millwright Helper Relationship Specialty Start Date End Date Obdulia [place] MD 505 [place] [address] PCP - General Family Medicine 07/01/18 documented as of this encounter
--- OUTSIDE RECORDS SUMMARY | 2024-08-29 20:07 | XMS_ITS | Encounter Summary ---
Author Organization [employer] Address [address] [facility] 7 [place] [address] Care Team Providers Care Glost Tile Sorter Name Role Phone Obdulia [place] MD Primary Care Provider [phone] Reason for Visit * Reason Onset Date Comments Med Refill 06/05/2024 Encounter Details Date Type Department Care Team (Late st Contact Info) Description 06/05/2024 Telephone [facility] MEDICINE [address] [place] [address] Obdulia [place] MD 505 [place], [place] [phone] Med Refill Social History Tobacco Use Types [...] 4 MG tablet To be sent to: [employer] #[id number] documented in this encounter Plan of Treatment Upcoming Encounters Date Type Department Care Team (Late st Contact Info) Description 09/10/2024 11:30 AM EDT Office Visit [facility] MED & PEDS 505 [place] [address] Obdulia [place] MD [address] [place] [address] documented as of this encounter Visit Diagnoses Not on filedocumented in this encounter Additional Health Concerns Assessment Noted Time PHQ-9 Depression Total Score: 8 02/20/20 24 11:38 AM EDT documented as of this encounter Care Teams Glost Tile Sorter Relationship Specialty Start Date End Date Obdulia [place] MD [address] [place] [address] PCP - General Family Medicine 07/01/18 documented as of this encounter
== END 2024-08-29 20:04 | disposition home or self-care (01) ==
LOC: HO.MRI 20:03
PROVIDERS: PCP Pediatrics; Visit Provider Pediatrics
DX: M54.40 Lumbago with sciatica, unspecified side (principal)
CPT/HCPCS: 72148

== ENCOUNTER 2024-09-02 13:51 | Outpatient (AMB) | payer MEDICARE, MEDICAID, SELFPAY ==
[2024-09-02 14:03] VITALS: BMI 32.0
--- NOTE | 2024-09-02 14:03 | A.SPINEOV_ITS ---
Vital Signs 09/02/24 14:03 Height 5 ft 2 in Weight 175 lb BMI 32.0 Intake Visit Reasons: Urgent referral LBP Intake Note: Ms. Crow is here today c/o severe back pain. Basketballs And Footballs Reverser Required: No Allergies Sulfa (Sulfonamide Antibiotics) [SULFA (SULFONAMIDE ANTIBIOTICS)] Allergy (Unknown, Verified 09/02/24 14:03) RASH Physical Exam Vital Signs: BMI result Body Mass Index 32.0 Assessment & Plan Assessment & Plan (1) Thoracic back pain: Code(s): M54.6 - Pain in thoracic spine Category: Medical Plan Dear Dr. [place], Thank you for referring Mai to our office today. She is a pleasant 39-year-old female who comes in today with a chief complaint of mid-thoracic low back pain. She reports this has been ongoing for about 9 months. 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 She reports that her pain was fairly severe for a few months after the initial onset 9 months ago, then it essentially completely subsided, returning about 2 months ago. When describing her pain she points to the left lateral side of the lower thoracic area at what I would estimate would be about T9-10. She endorses some pain wrapping around the left side of her body toward the epigastric area. She reports that her pain is worse with lying down flat and sitting for prolonged periods of time. Her pain is better with standing. She does report intermittent leg numbness that occurs only during severe pain flare-ups. She has attempted to utilize lidocaine patches, ibuprofen, Tylenol, heating packs and isdy-ybe-buljxca creams/gels in an effort to help mitigate her pain. She has not been to physical therapy, has not attempted palliative care nurse, has not had cortisone injections, and has not attempted acupuncture. She denies any saddle anesthesia, or bowel/bladder incontinence. Notably she has also been admitted here at the hospital back in May for this pain and was reporting intractable nausea, vomiting, and hematochezia. She was diagnosed with: Gastritis, small hiatal hernia, duodenitis, internal hemorrhoids, and had a total of 3 polyps removed during EGD on 06/22/24 and was discharged home with GI referral. PMH: type 2 diabetes, HTN, fibromyalgia, and bipolar disorder. Social hx: Patient regularly uses cannabis, smokes 1/2 packs cigarettes per day. Medications: Cetirizine, clonidine, dicyclomine, docusate, glipizide, ondansetron, pantoprazole, polyethylene glycol, potassium chloride, sennosides, tizanidine, valacyclovir. Allergies: Sulfa Physical exam: The patient has 5/5 strength in her upper and lower extremities. She ambulates well without an antalgic or spastic gait. She rises from a seated position without difficulty and does not need to brace herself on the chair when standing. She uses no assistive devices to ambulate. She has no significant sensational deficits on exam. Her reflexes are 1+ hypoactive in the bilateral patella. They are 2+ normal elsewhere. (-) Hernandez's bilaterally, (- ) clonus bilaterally, (-) bilateral straight leg raise. Imaging review: MRI of the lumbar spine completed here at [facility] shows a disc herniation at L5-S1 causing severe central canal and bilateral foraminal stenosis at this level. However; the patient had a MRI in 2019 which is not visible to me at this time that the radiologist references. The radiologist states that the disc herniation looks essentially unchanged when compared to the MRI from 2019. CT abdomen pelvis is generally unremarkable and shows no evidence of subluxation or listhesis in the lumbar spine. Impression: Mai is a pleasant, somewhat complex 39-year-old female who comes in today with a chief complaint of lower thoracic back pain with occasional flare- ups of this mid back pain, which causes her left leg to feel numb. She denies any baseline numbness in her left leg, and denies any weakness or pain in either leg. She reports this pain has only been present for about 9 months, and went away for a period of time, returning about 2 months ago. Her return of sounds like it is correlated with the recent hospital admission she had, during which time she was diagnosed with several different GI issues. In terms of the disc herniation seen at L5-S1; I do not believe she is symptomatic from this. The radiology report says that this herniation is essentially unchanged from 2019 imaging. I do not have access to these images, but I will call our radiology department and asked him to upload these images to her chart. In regards to her lower thoracic back pain, this most likely has its origins rooted in her gastrointestinal problems. However I do believe a thoracic MRI should be completed to rule out an acute impingement that could be causing radiating pain into her abdomen that would match this dermatomal distribution. This would be very unusual, but can not be completely excluded without MRI imaging. Thank you for allowing us to care for your patient. The total time spent with this visit with this patient was 45 minutes reviewing history, physical exam, MRI & CT imaging review, and implementation of treatment plan or further diagnostic testing Kirt Akers MD,PhD [facility] Orders: Orders MR thoracic spine wo con Today M54.6 - Pain in thoracic spine Coding Level of Care Code New Pt Level 5 (81669) Diagnoses Thoracic back pain M54.6
--- OUTSIDE RECORDS SUMMARY | 2024-09-02 16:32 | XMS_ITS | Encounter Summary ---
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 documented in this encounter Plan of Treatment Upcoming Encounters Date Type Department Care Team (Late st Contact Info) Description 09/10/2024 11:30 AM EDT Office Visit [facility] MED & PEDS [address] [place] [address] Obdulia [place] MD 505 [place] [address] 09/15/2024 10:30 AM EDT Medication Management [facility] MED & PEDS [address] [place] [address] Nayely Bird, PharmD [address] [place] [address] documented as of this encounter Visit Diagnoses Not on filedocumented in this encounter Additional Health Concerns Assessment Noted Time PHQ-9 Depression Total Score: 8 02/20/20 24 11:38 AM EDT documented as of this encounter Care Teams Business Data Analyst Relationship Specialty Start Date End Date Obdulia [place] MD [address] [place] [address] PCP - General Family Medicine 07/01/18 documented as of this encounter
--- OUTSIDE RECORDS SUMMARY | 2024-09-02 16:33 | XMS_ITS | Encounter Summary ---
Author Organization [employer] Address [address] [facility] 7 [place] [address] Care Team Providers Care Tube Machine Operator Name Role Phone Obdulia [place] MD Primary Care Provider [phone] Reason for Visit * Reason Comments Med Refill Encounter Details Date Type Department Care Team ([facility] st Contact Info) Description 08/26/2024 Refill [facility] MEDICINE [address] [place], [place] [phone] Obdulia [place] MD [address] [facility] [address] [place], [place] [phone] Primary hypertension Social History Tobacco Use Types [...] 11:30 AM EDT Office Visit [facility] MED & PEDS 505 [place] [address] Obdulia [place] MD 505 [place] [address] 09/15/2024 10:30 AM EDT Medication Management [facility] MED & PEDS [address] [place] [address] Nayely Bird, PharmD 230 [place], [place] [phone] documented as of this encounter Visit Diagnoses Diagnosis Primary hypertension Unspecified essential hypertension documented in this encounter Additional Health Concerns Assessment Noted Time PHQ-9 Depression Total Score: 8 02/20/20 24 11:38 AM EDT documented as of this encounter Care Teams Tube Machine Operator Relationship Specialty Start Date End Date Obdulia [place] MD 505 [place] [address] PCP - General Family Medicine 07/01/18 documented as of this encounter
--- OUTSIDE RECORDS SUMMARY | 2024-09-02 16:33 | XMS_ITS | Encounter Summary ---
Author Organization [employer] Address [address] [facility] 7 [place] [address] Care Team Providers Care Cad Programmer Name Role Phone Obdulia [place] MD Primary Care Provider [phone] Reason for Visit * Reason Onset Date Comments Med Refill 06/05/2024 Encounter Details Date Type Department Care Team (Late st Contact Info) Description 06/05/2024 Telephone [facility] MEDICINE 230 [place] [address] Obdulia [place] MD 505 [place], [place] [phone] Med Refill Social History Tobacco Use Types [...] 4 MG tablet To be sent to: [employer] #[id number] documented in this encounter Plan of Treatment Upcoming Encounters Date Type Department Care Team (Late st Contact Info) Description 09/10/2024 11:30 AM EDT Office Visit [facility] MED & PEDS 505 [place] [address] Obdulia [place] MD [address] [place] [address] 09/15/2024 10:30 AM EDT Medication Management [facility] MED & PEDS [address] [place] [address] Nayely Bird, PharmD 230 [place] [address] documented as of this encounter Visit Diagnoses Not on filedocumented in this encounter Additional Health Concerns Assessment Noted Time PHQ-9 Depression Total Score: 8 02/20/20 24 11:38 AM EDT documented as of this encounter Care Teams Cad Programmer Relationship Specialty Start Date End Date Obdulia [place] MD [address] [place] [address] PCP - General Family Medicine 07/01/18 documented as of this encounter
--- OUTSIDE RECORDS SUMMARY | 2024-09-02 16:33 | XMS_ITS | Encounter Summary ---
Author Organization [employer] Address [address] [place] [address] 7 [place] [address] Care Team Providers Care Senior Front End Engineer Name Role Phone Obdulia [place] MD Primary Care Provider [phone] Reason for Visit * Reason Onset Date Comments Nurse Triage 09/02/2024 Encounter Details Date Type Department Care Team ([facility] st Contact Info) Description 09/02/2024 Telephone [facility] MED & PEDS [address] [place], [place] [phone] Obdulia [place] MD 505 [place] [address] Nurse Triage Social History Tobacco Use Types [...] encounter Miscellaneous Notes * Telephone Encounter - Elen Putnam RN - 09/02/2024 4:10 PM EST Images from the original note were not included. Call returned to Mai Crow for triage below. No answer LVM to return call to [facility] triage line [phone]. Will also send portal message to return call. FW: Help Received: Today Danni Mckee RN P Counce Triage Nurse Previous Messages Help (Newest Message First) View All Conversations on this Encounter Danni Mckee RN routed conversation to Counce Triage Nurse1 hour ago (2:41 PM) [facility] (supporting Obdulia [place] MD)1 hour ago (2:38 PM) I'm losing my mind I'm not sleeping I'm in severe severe pain all I'm doing is crying [facility] said if I have surgery then he can give me something but until then the doctorwon't he said if I need anything call my PCP is there anything you can do for this pain because of Lyrica is just making me sick and I'm eating two 800 ibuprofens at a time about six of them a day documented in this encounter Plan of Treatment Upcoming Encounters Date Type Department Care Team (Late st Contact Info) Description 09/10/2024 11:30 AM EDT Office Visit [facility] MED & PEDS [address] [place] [address] Obdulia [place] MD 505 [place] [address] 09/15/2024 10:30 AM EDT Medication Management [facility] MED & PEDS [address] [place] [address] Nayely Bird, PharmD 230 [place] [address] documented as of this encounter Visit Diagnoses Not on filedocumented in this encounter Additional Health Concerns Assessment Noted Time PHQ-9 Depression Total Score: 8 02/20/20 24 11:38 AM EDT documented as of this encounter Care Teams Senior Front End Engineer Relationship Specialty Start Date End Date Obdulia [place] MD [address] [place] [address] PCP - General Family Medicine 07/01/18 documented as of this encounter
--- OUTSIDE RECORDS SUMMARY | 2024-09-02 16:33 | XMS_ITS | Encounter Summary ---
Author Organization [employer] Address [address] [facility] [address] 7[address] [place] [address] Care Team Providers Care Venetian Blind Installer Name Role Phone Obdulia [place] MD Primary Care Provider [phone] Encounter Details Date Type Department Care Team [...] 11:30 AM EDT Office Visit [facility] MED & PEDS [address] [place] [address] Obdulia [place] MD 505 [place] [address] 09/15/2024 10:30 AM EDT Medication Management [facility] MED & PEDS [address] [place] [address] Nayely Bird, PharmD 230 [place], [place] [phone] documented as of this encounter Visit Diagnoses Not on filedocumented in this encounter Additional Health Concerns Assessment Noted Time PHQ-9 Depression Total Score: 8 02/20/20 24 11:38 AM EDT documented as of this encounter Care Teams Venetian Blind Installer Relationship Specialty Start Date End Date Obdulia [place] MD 505 [place] [address] PCP - General Family Medicine 07/01/18 documented as of this encounter
--- OUTSIDE RECORDS SUMMARY | 2024-09-02 16:33 | XMS_ITS | Encounter Summary ---
Author Organization [employer] Address [address] [place] [address] 7 [place] [address] Care Team Providers Care Flute Teacher Name Role Phone Obdulia [place] MD Primary Care Provider [phone] Reason for Visit * Reason Comments Med Refill Encounter Details Date Type Department Care Team ([facility] Contact Info) Description 03/21/2023 Refill [facility] MED & PEDS [address] [place] [address] Marci Valiente MD 505 [place] [address] Vaginal discharge Social History Tobacco Use Types [...] Description 09/10/2024 11:30 AM EDT Office Visit [facility] MED & PEDS [address] [place] [address] Obdulia [place] MD 505 [place] [address] 09/15/2024 10:30 AM EDT Medication Management [facility] MED & PEDS [address] [place] [address] Nayely Bird, PharmD 230 [place] [address] documented as of this encounter Visit Diagnoses Diagnosis Vaginal discharge Leukorrhea, not specified as infective documented in this encounter Care Teams Flute Teacher Relationship Specialty Start Date End Date Obdulia [place] MD 505 [place] [address] PCP - General Family Medicine 07/01/18 documented as of this encounter
--- OUTSIDE RECORDS SUMMARY | 2024-09-02 16:33 | XMS_ITS | Encounter Summary ---
Author Organization [employer] Address [address] [place] [address] [place] [address] Care Team Providers Care Community Education Specialist Name Role Phone Obdulia Elliott MD Primary Care Provider [phone] Reason for Visit * Reason Comments Med Refill Encounter Details Date Type Department Care Team ([facility] Contact Info) Description 02/14/2023 Refill [facility] [address] [place], [place] [phone] Florinda Thomas FNP Social History Tobacco Use [...] 11:30 AM EDT Office Visit [facility] 505 [place] [address] Obdulia Elliott MD 505 [place] [address] 09/15/2024 10:30 AM EDT Medication Management [facility] 505 [place] [address] Nayely Bird PharmD 230 [place] [address] documented as of this encounter Visit Diagnoses Not on filedocumented in this encounter Care Teams Community Education Specialist Relationship Specialty Start Date End Date Obdulia Elliott MD [address] [place] [address] PCP - General Family Medicine 07/01/18 documented as of this encounter
--- OUTSIDE RECORDS SUMMARY | 2024-09-02 16:33 | XMS_ITS | Encounter Summary ---
Author Organization [employer] Address 75 [facility] 7t [place] [address] Care Team Providers Care Turning Machine Operator Helper Name Role Phone Obdulia Elliott MD Primary Care Provider [phone] Encounter Details Date Type Department Care Team ([facility] Contact Info) Description 08/26/2024 Telephone [facility] MED & PEDS [address] [place], [place] [phone] Elsi Stephen RN 505 [place], [place] Social History Tobacco Use Types Packs/Day [...] [facility] 505 [place] [address] Obdulia Elliott MD 505 [place] [address] 09/15/2024 10:30 AM EDT Medication Management [facility] MED & PEDS 505 [place] [address] Nayely Bird, PharmD 230 [place] [address] documented as of this encounter Visit Diagnoses Not on filedocumented in this encounter Additional Health Concerns Assessment Noted Time PHQ-9 Depression Total Score: 8 02/20/20 24 11:38 AM EDT documented as of this encounter Care Teams Turning Machine Operator Helper Relationship Specialty Start Date End Date Obdulia Elliott MD 505 [place] [address] PCP - General Family Medicine 07/01/18 documented as of this encounter
--- OUTSIDE RECORDS SUMMARY | 2024-09-02 16:33 | XMS_ITS | Encounter Summary ---
Author Organization [employer] Address [address] [place] [address] Care Team Providers Care Executive Account Manager Name Role Phone Obdulia Elliott MD Primary Care Provider [phone] Reason for Referral * Consultation (Urgent) - Authorized Specialty Diagnoses / Procedures Referred By Contac t Referred To Contact Neurosurgery Diagnoses Spinal stenosis of lumbar region, unspecified whether neurogenic claudication present Obdulia Elliott MD 505 [place] [address] Phone: tel: fax: [facility] Referral ID Status Reason Start Date Expiration Date Visits Requested Visits Authorized [id number] Authorized Specialty Services Required 08/30/2024 08/30/2025 1 1 Encounter Details Date Type Department Care Team ([facility] Contact Info) Description 08/30/2024 Orders Only [facility] MED & PEDS [address] [place] [address] Obdulia Elliott MD 505 [place] [address] Spinal stenosis of lumbar region, unspecified whether neurogenic claudication present (Primary Dx) Social History Tobacco Use Types Packs/Day Years [...] Upcoming Encounters Date Type Department Care Team ([facility] st Contact Info) Description 09/10/2024 11:30 AM EDT Office Visit [facility] [address] [place] [address] Obdulia Elliott MD 505 [place] [address] 09/15/2024 10:30 AM EDT Medication Management [facility] [address] [place] [address] Nayely Bird, PharmD 230 [place] [address] Scheduled Referrals Name Type Priority Associated Diagnoses Orde r Schedule Referral to Neurosurgery Outpatient Referral Urgent Spinal stenosis of lumbar region, unspecified whether neurogenic claudication present Expected: 08/30/2024 (Approximate), Expires: 08/30/2025 documented as of this encounter Visit Diagnoses Diagnosis Spinal stenosis of lumbar region, unspecified whether neurogenic claudication present- Primary documented in this encounter Additional Health Concerns Assessment Noted Time PHQ-9 Depression Total Score: 8 02/20/20 24 11:38 AM EDT documented as of this encounter Care Teams Executive Account Manager Relationship Specialty Start Date End Date Obdulia Elliott MD [address] [place] [address] PCP - General Family Medicine 07/01/18 documented as of this encounter
--- OUTSIDE RECORDS SUMMARY | 2024-09-02 16:33 | XMS_ITS | Encounter Summary ---
Author Organization [employer] Address 75 [facility] 7 [place] [address] Care Team Providers Care Tube Teller Name Role Phone Obdulia Elliott MD Primary Care Provider [phone] Reason for Visit * Reason Onset Date Comments Med Refill 05/18/2024 Medication Question 05/18/2024 Encounter Details Date Type Department Care Team ([facility] st Contact Info) Description 05/18/2024 Telephone [facility] 230 [place], [place] [phone] Obdulia Elliott MD 505 [place], [place] [phone] Med Refill; Medication Question Social History Tobacco [...] Pt is advised no apts available in [facility] but, offered to come to [facility] in [facility] today open till 4pm to be [...] - You become worse [facility] Med & Peds Nurses (supporting Obdulia [...] 3:24 PM EST Medication was sent to [id number] on 05/07/24 #270. * Telephone [...] [facility] 505 [place] [address] Obdulia Elliott MD 505 [place] [address] 09/15/2024 10:30 AM EDT Medication Management [facility] 505 [place] [address] Nayely Bird, PharmD 230 [place] [address] documented as of this encounter Visit Diagnoses Not on filedocumented in this encounter Additional Health Concerns Assessment Noted Time PHQ-9 Depression Total Score: 8 02/20/20 24 11:38 AM EDT documented as of this encounter Care Teams Tube Teller Relationship Specialty Start Date End Date Obdulia Elliott MD 505 [place] [address] PCP - General Family Medicine 07/01/18 documented as of this encounter
--- OUTSIDE RECORDS SUMMARY | 2024-09-02 16:33 | XMS_ITS | Encounter Summary ---
Author Organization [employer] Address 75 [facility] 7t [place] [address] Care Team Providers Care Leadership Intern Name Role Phone Obdulia Elliott MD Primary Care Provider [phone] Encounter Details Date Type Department Care Team ([facility] Contact Info) Description 08/26/2024 Telephone [facility] CH[facility] MED & PEDS 505 [place], [place] [phone] Elsi Stephen RN 505 [place], [place] Social History Tobacco Use Types Packs/Day [...] encounter Miscellaneous Notes * Telephone Encounter - lEsi Stephen RN - 08/26/2024 3:21 PM EST Spoke with PCP regarding message below,. Per PCP no refills of Oxycodone, pt can try Lyrica 75mg again that was prescribed on 08/25/24. TC to pt, pt verbalized understanding. documented in this encounter Plan of Treatment Upcoming Encounters Date Type Department Care Team (Late st Contact Info) Description 09/10/2024 11:30 AM EDT Office Visit [facility] MED & PEDS 505 [place] [address] Obdulia Elliott MD 505 [place] [address] 09/15/2024 10:30 AM EDT Medication Management [facility] 505 [place] [address] Nayely Bird, PharmD 230 [place] [address] documented as of this encounter Visit Diagnoses Not on filedocumented in this encounter Additional Health Concerns Assessment Noted Time PHQ-9 Depression Total Score: 8 02/20/20 24 11:38 AM EDT documented as of this encounter Care Teams Leadership Intern Relationship Specialty Start Date End Date Obdulia Elliott MD 505 [place] [address] PCP - General Family Medicine 07/01/18 documented as of this encounter
--- OUTSIDE RECORDS SUMMARY | 2024-09-02 16:33 | XMS_ITS | Encounter Summary ---
Author Organization [employer] Address [address] [place] [address] Care Team Providers Care Customs Compliance Manager Name Role Phone Obdulia Elliott MD Primary Care Provider [phone] Reason for Referral * Imaging (Routine) - Authorized Specialty Diagnoses / Procedures Referred By Contac t Referred To Contact Radiology Diagnoses Pelvic pain Cyst of left ovary Procedures US Pelvis Transvaginal Obdulia Elliott MD 505 [place] [address] Phone: tel: fax: [address] Phone: tel: fax: Referral ID Status Reason Start Date Expiration Date V isits Requested Visits Authorized [id number] Authorized 08/19/2024 08/19/2025 1 1 * Imaging (Routine) - Authorized Specialty Diagnoses / Procedures Referred By Contac t Referred To Contact Radiology Diagnoses Pelvic pain Cyst of left ovary Procedures Us Pelvis complete Obdulia Elliott MD 505 [place] [address] Phone: tel: fax: [address] Phone: tel: fax: Referral ID Status Reason Start Date Expiration Date V isits Requested Visits Authorized [id number] Authorized 08/19/2024 08/19/2025 1 1 Encounter Details Date Type Department Care Team ([facility] st Contact Info) Description 08/19/2024 Orders Only [facility] MED & PEDS 505 [place] [address] Obdulia Elliott MD [address] [place] [address] Pelvic pain (Primary Dx); Cyst of left [...] 11:30 AM EDT Office Visit [facility] MED & PEDS [address] [place] [address] Obdulia Elliott MD 505 [place] [address] 09/15/2024 10:30 AM EDT Medication Management [facility] MED & PEDS [address] [place] [address] Nayely Bird, PharmD 230 [place] [address] Scheduled Orders Name Type Priority Associated Diagnoses [...] documented as of this encounter Care Teams Customs Compliance Manager Relationship Specialty Start Date End Date Obdulia Elliott MD [address] [place] [address] PCP - General Family Medicine 07/01/18 documented as of this encounter
--- OUTSIDE RECORDS SUMMARY | 2024-09-02 16:33 | XMS_ITS | Encounter Summary ---
Author Organization [employer] Address [address] [place] [address] Care Team Providers Care Cow Puncher Name Role Phone Mainor Elliott MD Primary Care Provider [phone] Reason for Referral * Imaging (Routine) - Closed Specialty Diagnoses / Procedures Referred By Contac t Referred To Contact Radiology Diagnoses Back pain of lumbosacral region with sciatica Procedures MR Lumbar Spine w/o Contrast Mainor Elliott MD [address] [place] [address] Phone: tel: fax: [address] Phone: tel: fax: Referral ID Status Reason Start Date Expiration Date Visits Re quested Visits Authorized [id number] Closed 08/25/2024 08/25/2025 1 1 Encounter Details Date Type Department Care Team (Latest Contact Info) Description 08/25/2024 11:15 AM EST Office Visit [facility] MED & PEDS 505 [place], [place] [phone] Mainor Elliott MD 505 [place], [place] [phone] Sacroiliitis, not elsewhere classified (CMS/HCC) (Primary Dx); [...] y.o. female who presents for follow up. 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 Review of Systems Constitutional: Negative for activity [...] Uncontrolled type 2 diabetes mellitus with hyperglycemia (CMS/[facility]) Comments: PLease take meds as [...] (75 mg) by mouth 2 times daily. * Mana Jacob RN - 08/25/2024 11:15 AM EST TC to patient to notify of results. All questions and concerns were addressed. Patient will follow up as needed. documented in this encounter Miscellaneous Notes * Addendum Note - Mainor Elliott MD - 08/25/2024 11:15 AM ESTAddended by: MAINOR ELLIOTT on: 08/25/2024 05:21 PM Modules accepted: Orders documented in this encounter Plan of Treatment Upcoming Encounters Date Type Department Care Team (Late st Contact Info) Description 09/10/2024 11:30 AM EDT Office Visit [facility] MED & PEDS 505 [facility] [place] [address] Mainor Elliott MD 505 [facility] [place] [address] 09/15/2024 10:30 AM EDT Medication Management [facility] 505 [place] [address] Nayely Bird, PharmD [address] [place] [address] documented as of this encounter Procedures Procedure Name Priority Date/Time Associated Diagnosis Comments MR LUMBAR SPINE WO CONTRAST Routine 08/29/2024 9:31 PM EST Back pain of lumbosacral region with sciatica documented in this encounter Results * MR Lumbar Spine w/o Contrast (08/29/2024 9:31 PM EST) Anatomical Region Laterality Modality Spine, L-spine Magnetic Resonan ce 08/29/2024 9:31 PM EST Narrative 08/29/2024 9:33 PM EST ? [facility] ?[address] ?[place] [address] ? Magnetic Resonance Report ? Signed ? Patient: Normandin,Mai ?MR#: [id number] ?? 4 ? : 1985 ?Acct:[id number] ? Age/Sex: 39 / F ?ADM Date: 08/29/24 ? Loc: HO.MRI ? Attending Dr: Mainor Elliott MD ? Ordering Physician: Mainor Elliott MD ?? Date of Service: 08/29/24 ?? Procedure(s): MR lumbar spine wo con ?? Accession Number(s): [id number] ? cc: Mainor Elliott MD ? CLINICAL HISTORY: chronic back pain radiating to left side abdomen and leg ? MR lumbar spine without contrast ? Comparison: MR - MRI LUMBAR SPINE [id number] - 12/30/18 15:01 EDT ? Findings: ?? The alignment of the lumbar spine is normal. Bone marrow signal is normal. ?? No fracture is seen. Conus is at T12 and distal spinal cord signal ?? intensity is normal. ? T12-L1: Normal ? L1-2: Normal ? L2-3: Normal ? L3-4: There is a minimal disc bulge. There is no central canal or ?? neuroforaminal stenosis. There is no significant facet arthropathy. ? L4-5: There is a minimal disc bulge. There is mild central canal stenosis ?? due to facet and and ligamentum flavum hypertrophy. There is no ?? neuroforaminal stenosis. There is mild facet osteoarthritis. ? L5-S1: There is a disc bulge with large superimposed central disc ?? protrusion causing severe central canal stenosis similar to the prior MRI. ?? There is moderate right and mild left neuroforaminal stenosis. There is no ?? significant facet arthropathy. ? IMPRESSION: ?? 1. L5-S1 disc bulge with superimposed central disc protrusion causing ?? severe central canal stenosis similar to the prior MRI. ?? 2. Additional degenerative changes as above. ? This document has been electronically signed by: Edilson Sparks MD on ?? 08/29/2024 21:31:55 ? Dictated By: ?Edilson Sparks MD ? Signed By: ?<Electronically signed by Edilosn Sparks MD in OV> ? 08/29/242131 ? DD/ 30 ? TD/TT: 08/29/242130 ? Honey Liquefier: ? Procedure Note Quinn, Image - 08/29/2024 [place] [id number] Magnetic Resonance Report Signed Patient: Javy Crow#: [id number] 4 : 1985Acct:[id number] Age/Sex: 39 / FADM Date: 08/29/24 Loc: HO.MRI Attending Dr: Mainor Elliott MD Ordering Physician: Mainor Elliott MD Date of Service: 08/29/24 Procedure(s): MR lumbar spine wo con Accession Number(s): [id number] cc: Mainor Elliott MD CLINICAL HISTORY: chronic back pain radiating to left side abdomen and leg MR lumbar spine without contrast Comparison: MR - MRI LUMBAR SPINE [id number] - 12/30/18 15:01 EDT Findings: The alignment of the lumbar spine is normal. Bone marrow signal is normal. No fracture is seen. Conus is at T12 and distal spinal cord signal intensity is normal. T12-L1: Normal L1-2: Normal L2-3: Normal L3-4: There is a minimal disc bulge. There is no central canal or neuroforaminal stenosis. There is no significant facet arthropathy. L4-5: There is a minimal disc bulge. There is mild central canal stenosis due to facet and and ligamentum flavum hypertrophy. There is no neuroforaminal stenosis. There is mild facet osteoarthritis. L5-S1: There is a disc bulge with large superimposed central disc protrusion causing severe central canal stenosis similar to the prior MRI. There is moderate right and mild left neuroforaminal stenosis. There is no significant facet arthropathy. IMPRESSION: 1. L5-S1 disc bulge with superimposed central disc protrusion causing severe central canal stenosis similar to the prior MRI. 2. Additional degenerative changes as above. This document has been electronically signed by: Edilson Sparks MD on 08/29/2024 21:31:55 Dictated By: Edilson Sparks MD Signed By: <Electronically signed by Edilson Sparks MD in OV> 08/29/242131 DD/ 30 TD/TT: 08/29/242130 Honey [employer]ier: Mainor Elliott MD IM MRI PROCEDURES Edited Res ult - Final documented in this encounter Visit Diagnoses Diagnosis Sacroiliitis, not elsewhere classified (CMS/HCC)- Primary Sacroiliitis, not elsewhere classified Dietary counseling Dietary surveillance and counseling Exercise counseling Uncontrolled type 2 diabetes mellitus with hyperglycemia (CMS/HCC) Back pain of lumbosacral region with sciatica documented in this encounter Additional Health Concerns Assessment Noted Time PHQ-9 Depression Total Score: 8 02/20/20 24 11:38 AM EDT documented as of this encounter Care Teams Cow Puncher Relationship Specialty Start Date End Date Mainor Elliott MD [address] [place] [address] PCP - General Family Medicine 07/01/18 documented as of this encounter
--- OUTSIDE RECORDS SUMMARY | 2024-09-02 16:33 | XMS_ITS | Encounter Summary ---
Author Organization [employer] Address [address] [place] [address] 7 [place] [address] Care Team Providers Care Deputy City Clerk Name Role Phone Obdulia Elliott MD Primary Care Provider [phone] Reason for Visit * Reason Comments Med Change Request Encounter Details Date Type Department Care Team ([facility] Contact Info) Description 03/23/2024 Refill [facility] CH[facility] MED & PEDS [address] [place], [place] [phone] Obdulia Elliott MD 505 [place] [address] Social History Tobacco Use Types Packs/Day Years [...] [facility] MED [facility]ED[facility] [address] [place] [address] Obdulia Elliott MD [address] [place] [address] 09/15/2024 10:30 AM EDT Medication Management [facility] MED & PEDS [address] [place] [address] Nayely Bird, PharmD 230 [place], [place] [phone] documented as of this encounter Visit Diagnoses Not on filedocumented in this encounter Additional Health Concerns Assessment Noted Time PHQ-9 Depression Total Score: 8 02/20/20 24 11:38 AM EDT documented as of this encounter Care Teams Deputy City Clerk Relationship Specialty Start Date End Date Obdulia Elliott MD [address] [place] [address] PCP - General Family Medicine 07/01/18 documented as of this encounter
--- OUTSIDE RECORDS SUMMARY | 2024-09-02 16:33 | XMS_ITS | Encounter Summary ---
Author Organization [employer] Address 75 [facility] 7 [place] [address] Care Team Providers Care Mechanical System Technician Name Role Phone Obdulia Elliott MD Primary Care Provider [phone] Reason for Visit * Reason Onset Date Comments Med Refill 08/26/2024 Encounter Details Date Type Department Care Team (Late st Contact Info) Description 08/26/2024 Telephone [facility] MEDICINE [address] [place] [address] Obdulia Elliott MD [address] [place], [place] [phone] Med Refill Social History Tobacco Use Types [...] 5-325 MG tablet To be sent to: [id number] AT [facility] documented in this encounter Plan of Treatment Upcoming Encounters Date Type Department Care Team ([facility] Contact Info) Description 09/10/2024 11:30 AM EDT Office Visit [facility] MED & PEDS [address] [place] [address] Obdulia Elliott MD [address] [place] [address] 09/15/2024 10:30 AM EDT Medication Management [facility]ED[facility] [address] [place] [address] Nayely Bird, PharmD 230 [place], [place] [phone] documented as of this encounter Visit Diagnoses Not on filedocumented in this encounter Additional Health Concerns Assessment Noted Time PHQ-9 Depression Total Score: 8 02/20/20 24 11:38 AM EDT documented as of this encounter Care Teams Mechanical System Technician Relationship Specialty Start Date End Date Obdulia Elliott MD [address] [place] [address] PCP - General Family Medicine 07/01/18 documented as of this encounter
--- OUTSIDE RECORDS SUMMARY | 2024-09-02 16:33 | XMS_ITS | Encounter Summary ---
Author Organization [employer] Address 75 [facility] 7 [place] [address] Care Team Providers Care Drying Tumbler Operator Name Role Phone Obdulia Elliott MD Primary Care Provider [phone] Reason for Visit * Reason Onset Date Comments Med Refill 07/14/2024 Encounter Details Date Type Department Care Team (Late st Contact Info) Description 07/14/2024 Telephone [facility] MEDICINE [address] [place] [address] Obdulia Elliott MD [address] [place], [place] [phone] Med Refill Social History Tobacco Use Types [...] Description 09/10/2024 11:30 AM EDT Office Visit [facility] MED & PEDS [address] [place] [address] Obdulia Elliott MD [address] [place] [address] 09/15/2024 10:30 AM EDT Medication Management [facility] MED & PED[facility] [address] [place] [address] Nayely Bird, PharmD 230 [place], [place] [phone] documented as of this encounter Visit Diagnoses Not on filedocumented in this encounter Additional Health Concerns Assessment Noted Time PHQ-9 Depression Total Score: 8 02/20/20 24 11:38 AM EDT documented as of this encounter Care Teams Drying Tumbler Operator Relationship Specialty Start Date End Date Obdulia Elliott MD [address] [place] [address] PCP - General Family Medicine 07/01/18 documented as of this encounter
--- OUTSIDE RECORDS SUMMARY | 2024-09-02 16:33 | XMS_ITS | Encounter Summary ---
Author Organization [employer] Address 75 [facility] 7 [place] [address] Care Team Providers Care Workforce Management Manager Name Role Phone Obdulia Elliott MD Primary Care Provider [phone] Reason for Visit * Reason Onset Date Comments Med Refill 04/17/2024 Encounter Details Date Type Department Care Team ([facility] st Contact Info) Description 04/17/2024 Refill [facility] MED & PEDS [address] [place] [address] Obdulia Elliott MD 505 [place] [address] Chronic bilateral low back pain without sciatica [...] Description 09/10/2024 11:30 AM EDT Office Visit [facility] MED & PEDS 505 [place] [address] Obdulia Elliott MD [address] [place] [address] 09/15/2024 10:30 AM EDT Medication Management [facility] MED & PEDS [address] [place] [address] Nayely Bird, PharmD 230 [place], [place] [phone] documented as of this encounter Visit Diagnoses Diagnosis Chronic bilateral low back pain without sciatica documented in this encounter Additional Health Concerns Assessment Noted Time PHQ-9 Depression Total Score: 8 02/20/20 24 11:38 AM EDT documented as of this encounter Care Teams Workforce Management Manager Relationship Specialty Start Date End Date Obdulia Elliott MD 505 [place] [address] PCP - General Family Medicine 07/01/18 documented as of this encounter
--- OUTSIDE RECORDS SUMMARY | 2024-09-02 16:33 | XMS_ITS | Encounter Summary ---
Author Organization [employer] Address [address] [place] [address] Care Team Providers Care Chief Yeoman Name Role Phone Obdulia Elliott MD Primary Care Provider [phone] Encounter Details Date Type Department Care Team (Late st Contact Info) Description 08/27/2024 Orders Only [facility] External Provider, [facility] Social History Tobacco Use Types Packs/Day Years [...] [facility] [address] [place] [address] Obdulia Elliott MD [address] [place] [address] 09/15/2024 10:30 AM EDT Medication Management [facility] [address] [place] [address] Nayely Bird, PharmD [address] [place] [address] documented as of this encounter Procedures Procedure Name Priority Date/Time Associated Diagnosis Comments XR THORACIC SPINE 2 VIEWS Routine 08/28/2024 12:54 PM EST HEPATITIS C VIRAL RNA, QUANTITATIVE, REAL-TIME PCR Routine 08/27/2024 2:59 PM EST documented in this encounter Results * XR Thoracic Spine 2 Views (08/28/2024 12:54 PM EST) Anatomical Region Laterality Modality Spine, T-spine Radiographic Dilma ging 08/28/2024 12:5 4 PM EST Narrative 08/28/2024 12:55 PM EST ? [facility] ?[address] ?[place] [address] ?XRay Report ? Signed ? Patient: Normandin,Mai ?MR#: [id number] ?? 4 ? : 1985 ?Acct:[id number] ? Age/Sex: 39 / F ?ADM Date: 02/27/25 ? Loc: HO.XRAY ? Attending Dr: Halima Breen ANP-C ? Ordering Physician: Halima BreenC ?? Date of Service: 08/27/24 ?? Procedure(s): XR thoracic spine 2V ?? Accession Number(s): [id number] ? cc: Obdulia Elliott MD; Halima Breen-C [...] DD/ 1254 ? TD/TT: 08/28/24 1254 ? Mechanical Integrity Specialist: ? Procedure Note Quinn, Cruz - 08/28/2024 [place] [id number] XRay Report Signed Patient: Javy Crow#: [id number] 4 : 1985Acct:[id number] Age/Sex: 39 / FADM Date: 08/27/24 Loc: HO.XRAY Attending Dr: Halima ALONZO Ordering Physician: Halima Breen Date of Service: 08/27/24 Procedure(s): XR thoracic spine 2V Accession Number(s): [id number] cc: Obdulia Elliott MD; Halima Breen CLINICAL [...] 08/28/24 1255 DD/ 1254 TD/TT: 08/28/24 1254 Mechanical Integrity Specialist: [facility] External Provider IMG XR PROCEDURES Final Result * Hepatitis C Viral RNA, Quantitative, Real-Time PCR (08/27/2024 2:59 PM EST) Hepatitis C Viral Load <15 NOT DETECTED NOT DETECTED IU/mL [facility] HCV Log PCR <1.18 NOT DETECTED NOT DETECTED Log IU/mL [facility] Comment:For additional infor mation, please refer tohttp://education.Dropmysite/faq/JKO09x3(This link is being provided for informational/educational purposes only.)THIS TEST WAS PERFORMED AT:[facility] [place] [id number] CORTES MD 08/27/2024 2:59 PM EST 08/28/2024 11:18 AM EST Obdulia Elliott MD LAB BLOOD ORDERABLES Final Re sult [facility] [address] [place] [address] [phone] documented in this encounter Visit Diagnoses Not on filedocumented in this encounter Additional Health Concerns Assessment Noted Time PHQ-9 Depression Total Score: 8 02/20/20 24 11:38 AM EDT documented as of this encounter Care Teams Chief Yeoman Relationship Specialty Start Date End Date Obdulia Elliott MD [address] [place] [phone] PCP - General Family Medicine 07/01/18 documented as of this encounter
--- OUTSIDE RECORDS SUMMARY | 2024-09-02 16:33 | XMS_ITS | Clinical Summary ---
Author Organization [employer] Address [address] [facility] 7[address] [place] [address] Care Team Providers Care General Road Supervisor Name Role Phone Obdulia Elliott MD Primary Care Provider [phone] Allergies Active Allergy Reactions Criticality Noted Date [...] (Jardiance) 25 MGIndications:Di abetes mellitus without complication (CMS/[facility]) Take 1 tablet (25 mg) by mouth Once per day. 30 tablet 11 024 2024 Active glucose blood (FREESTYLE LITE) test stripIndications :Type 2 diabetes mellitus without complication, without long-term current use of insulin ([facility]) Check BS tid 100 strip 11 Active [...] LITE test stripIndications :Diabetes mellitus without complication ([facility]) Use to test blood sugar 1-2 times daily 100 each 12 024 2024 Active Lancets miscIndications: Diabetes mellitus without complication ([facility]/HCC) Use to test blood sugar 1-2 times daily 100 each Active Alcohol Swabs 70 % padsIndications: Diabetes mellitus without complication ([facility]) Use to test blood sugar 1-2 times daily 100 each Active Blood Glucose Monitoring Suppl (FreeStyle Gore Lite) w/Device kitIndications:D iabetes mellitus without complication ([facility]) Use to test blood sugar 1-2 times [...] Encounters Date Type Department Care Team Description 09/02/[address] [facility] [address] [place] [address] Obdulia Elliott MD Nurse Triage 08/30/[address] [facility] [address] [place] [address] Obdulia Elliott MD Spinal stenosis of lumbar region, unspecified whether neurogenic claudication present (Primary Dx) 08/27/2024 Orders Only [facility] External Provider, [facility] 08/27/[address] [facility] [address] [place] [address] Marci Valiente MD Chronic bilateral low back pain without sciatica 08/26/[address] [facility] [address] [place] [address] Elsi Stephen, AURA 08/26/[address] [facility] [address] [place] [address] Elsi Stephen, AURA 08/26/[address] [facility] [address] [place] [address] Elsi Stephen, RN Med Refill 08/26/[address] [facility] [address] [place] [address] Obdulia Elliott MD Primary hypertension 08/26/[address] [facility] [address] [place] [address] Obdulia Elliott MD Med Refill 08/25/2024 11:15 AM EST Office Visit [facility] [address] [place] [address] Obdulia Elliott MD Sacroiliitis, not elsewhere classified (CMS/HCC) (Primary Dx); Dietary counseling; Exercise counseling; Uncontrolled type 2 diabetes mellitus with hyperglycemia (CMS/HCC); Back pain of lumbosacral region with sciatica 08/25/2024 Travel 08/19/[address] [facility] [address] [place] [address] Obdulia Elliott MD Pelvic pain (Primary Dx); Cyst of left ovary 08/03/[address] [facility] [address] [place] [address] Marci Valiente MD Chronic bilateral low back pain without sciatica 07/29/2024 Orders Only [facility] [address] [place] [phone] Obdulia Elliott MD Type 2 diabetes mellitus without complication, without long-term current use of insulin (CMS/HCC) (Primary Dx); Uncontrolled type 2 diabetes mellitus with hyperglycemia (CMS/HCC) 07/29/[address] [facility] [address] [place] [address] Nayely Bird, Nando 07/24/2024 Orders Only [facility] [address] [place] [phone] Obdulia Elliott MD History of hepatitis C (Primary Dx) 07/24/[address] [facility] [address] [place] [phone] Sarah Baires, motor carrier inspector Orders 07/23/2024 3:30 PM EST Office Visit [facility] [address] [place] [address] Obdulia Elliott MD Diabetes mellitus without complication ([facility]/HCC) (Primary Dx); Primary hypertension; Colitis 07/23/2024 Travel 07/15/2024 Travel 07/14/[address] [facility] [address] [place] [phone] Obdulia Elliott MD 07/14/[address] [facility] [address] [place] [phone] Obdulia Elliott MD Med Refill 07/10/[address] [facility] [address] [place] [address] Obdulia Elliott MD Med Refill 07/08/[address] [facility] [address], [place] [phone] Obdulia Elliott MD Chronic bilateral low back pain without sciatica 07/02/[address] [facility] [address] [place] [address] Obdulia Elliott MD Colitis (Primary Dx) 07/02/[address] [address] Obdulia Elliott MD Med Refill 06/29/2024 9:30 AM EST Office Visit [facility] [address] [place] [address] Florinda Dominique FNP Colitis (Primary Dx); Hypokalemia; Encounter for immunization; Diabetes mellitus without complication ([facility]); Tobacco use 06/29/[address] [facility] [address] [place] [address] Obdulia Elliott MD Colitis 06/29/2024 Orders Only [facility] External Provider, [facility] 06/29/2024 Travel 06/26/[address] [facility] [address] [place] [address] Obdulia Elliott MD Colitis (Primary Dx) 06/25/[address] [address] Obdulia Elliott MD Hospital Follow-up; Nurse Triage 06/22/[address] [address] Sarah Baires, POT LINING SUPERVISOR Follow-up 06/18/2024 Orders Only GENERIC EXTERNAL DATA DEPARTMENT Provider, Generic External Data 06/16/2024 Orders Only GENERIC EXTERNAL DATA DEPARTMENT Provider, Generic External Data 06/11/2024 11:15 AM EST Office Visit [facility] P[facility]S [address] [place] [address] Ever Morris MD Tinea corporis (Primary Dx) 06/11/[address] [facility] [address] [place] [address] Obdulia Elliott MD Chronic bilateral low back pain without sciatica 06/11/2024 Travel 06/06/[address] [facility] [address], [place] [phone] Mahsa Franklin MD 06/05/[address] [facility] [address] [place], [place] [phone] Obdulia Elliott MD Med Refill from [facility] [...] [facility] [address] [place] [address] Obdulia Elliott MD [address] [place] [address] 09/15/2024 10:30 AM EDT Medication Management [facility] [address] [place] [address] Nayely Bird, PharmD [address] [place] [address] Health Maintenance Due Date Last Done Comments [...] Back pain of lumbosacral region with sciatica XR THORACIC SPINE 2 VIEWS Routine 08/28/2024 12:54 PM EST HEPATITIS C VIRAL RNA, QUANTITATIVE, REAL-TIME PCR Routine 08/27/2024 2:59 PM EST HEPATITIS C AB W/REFL TO [...] Recently Relevant to Health Maintenance Results * MR Lumbar Spine w/o Contrast (08/29/2024 9:31 PM EST) Anatomical Region Laterality Modality Spine, L-spine Magnetic Resonan ce 08/29/2024 9:31 PM EST Narrative 08/29/2024 9:33 PM EST ? [facility] ?[address] ?[place] [address] ? Magnetic Resonance Report ? Signed ? Patient: Normandin,Mai ?MR#: [id number] ?? 4 ? : 1985 ?Acct:[id number] ? Age/Sex: 39 / F ?ADM Date: 08/29/24 ? Loc: HO.MRI ? Attending Dr: Obdulia Elliott MD ? Ordering Physician: Obdulia Elliott MD ?? Date of Service: 08/29/24 ?? Procedure(s): MR lumbar spine wo con ?? Accession Number(s): [id number] ? cc: Obdulia Elliott MD ? CLINICAL HISTORY: chronic back pain radiating to left side abdomen and leg ? MR lumbar spine without contrast ? Comparison: MR - MRI LUMBAR SPINE 26812 - 12/30/18 15:01 EDT ? Findings: ?? [...] MD ? Signed By: ?<Electronically signed by Edilson Sparks MD in OV> ? 08/29/242131 ? DD/ 30 ? TD/TT: 08/29/242130 ? Transporter Driver: ? Procedure Note Donfrancis, Image - 08/29/2024 [place] [address] Magnetic Resonance Report Signed Patient: Javy Crow#: [id number] 4 : 1985Acct:[id number] Age/Sex: 39 / FADM Date: 08/29/24 Loc: HO.MRI Attending Dr: Obdulia Elliott MD Ordering Physician: Obdulia Elliott MD Date of Service: 08/29/24 Procedure(s): MR lumbar spine wo con Accession Number(s): [id number] cc: Obdulia Elliott MD CLINICAL HISTORY: chronic back pain radiating to left side abdomen and leg MR lumbar spine without contrast Comparison: MR - MRI LUMBAR SPINE 63211 - 12/30/18 15:01 EDT Findings: The alignment [...] in OV> 08/29/242131 DD/ 30 TD/TT: 08/29/242130 Transporter Driver: us Obdulia Elliott MD IMG MRI PROCEDURES Edited Res ult - Final * XR Thoracic Spine 2 Views (08/28/2024 12:54 PM EST) Anatomical Region Laterality Modality Spine, T-spine Radiographic Dilma ging 08/28/2024 12:5 4 PM EST Narrative 08/28/2024 12:55 PM EST ? [facility] ?[address] ?[place] [address] ?XRay Report ? Signed ? Patient: Normandin,Mai ?MR#: [id number] ?? 4 ? : 1985 ?Acct:[id number] ? Age/Sex: 39 / F ?ADM Date: 02/27/25 ? Loc: HO.XRAY ? Attending Dr: Halima Breen ANP-C ? Ordering Physician: Halima BreenC ?? Date of Service: 08/27/24 ?? Procedure(s): XR thoracic spine 2V ?? Accession Number(s): [id number] ? cc: Obdulia Elliott MD; Halima Breen-C [...] DD/ 1254 ? TD/TT: 08/28/24 1254 ? Transporter Driver: ? Procedure Note Quinn, Cruz - 08/28/2024 [place] [address] XRay Report Signed Patient: Javy Crow#: [id number] 4 : 1985Acct:[id number] Age/Sex: 39 / FADM Date: 08/27/24 Loc: HO.XRAY Attending Dr: Halima ALONZO Ordering Physician: Halima Breen Date of Service: 08/27/24 Procedure(s): XR thoracic spine 2V Accession Number(s): [id number] cc: Obdulia Elliott MD; Halima Breen CLINICAL [...] 08/28/24 1255 DD/ 1254 TD/TT: 08/28/24 1254 Transporter Driver: [facility] External Provider IMG XR PROCEDURES Final Result * Hepatitis C Viral RNA, Quantitative, Real-Time PCR (08/27/2024 2:59 PM EST) Pathologist [facility] Hepatitis C Viral Load <15 NOT DETECTED NOT DETECTED IU/mL [facility] HCV Log PCR <1.18 NOT DETECTED NOT DETECTED Log IU/mL [facility] Comment:For additional infor mation, please refer [email or web address]/faq/EGV23a4(This link is being provided for informational/educational purposes only.)THIS TEST WAS PERFORMED AT:[email or web address] [place] [phone] CORTES MD 08/27/2024 2:59 PM EST 08/28/2024 11:18 AM EST Obdulia Elliott MD LAB BLOOD ORDERABLES Final Re sult [facility] [address], [place] [phone] * (ABNORMAL) Hepatitis C Antibody with Reflex to HCV, RNA, Quantitative, Real- Time PCR (08/27/2024 2:59 PM EST) Pathologist [facility] Hepatitis C Antibody Reactive( A) Nonreactive [facility] Comment:Presumptive evidence of antibodies to HCV. Blood Venous blood specimen / Unknown 08/27/2024 2:59 PM EST 08/27/2024 2:59 PM EST Obdulia Ellitot MD LAB BLOOD ORDERABLES Final Re sult Performing Organization Address [facility] Co de Phone Number [facility] [address] [place] [phone] * Hepatitis B Surface Antibody, Qualitative (08/27/2024 2:59 PM EST) Pathologist [facility] ~Hepatitis B Surface Antibody REACTIVE Nonreactive [facility] Comment:REACTIVE: > 11.99 mI U/mL Blood Venous blood specimen / Unknown 08/27/2024 2:59 PM EST 08/27/2024 2:59 PM EST Obdulia Elliott MD LAB BLOOD ORDERABLES Final Re sult Performing Organization Address [facility] de Phone Number [facility] [address] [place] [phone] * (ABNORMAL) Urinalysis, Complete, with Reflex to Culture (06/29/2024 1:04 PM EST) Only the most recent of2 resultswithin the time period is included. Pathologist [facility] Color Urine Yellow [facility] Appearance Urine Clear [facility] PH 7.5 5.0 - 9.0 [facility] Glucose Urine UA >=1000(A) Negative mg/dL [facility] Urine Blood Negative Negative [facility] Specific [place] - Urine 1.025 1.005 - 1.025 [facility] Urine Protein Negative Neg-Trace mg/dL [facility] Urine Ketones Negative Negative mg/dL [facility] Nitrite Urine Negative Negative [facility] Leukocyte Esterase Urine Negative Negative [facility] RBC Urine 0-2 0 - 2 /HPF [facility] Urine WBC 0-5 0 - 5 /HPF [facility] Urine Squamous Epithelial Cell 3-5 0 - 2 /HPF [facility] Urine Bacteria Trace None Seen [facility] Hyaline Casts, Urine 0-2 0 - 2 /LPF [facility] 06/29/2024 1:04 PM EST 06/29/2024 1:09 PM EST Narrative [facility] - 06/29/2024 1:16 PM EST [id number], [employer] us Generic External Data Provider LAB URINE ORDERAB LES Final Result [facility] [address] [place] [phone] [phone] * (ABNORMAL) CBC auto differential (06/29/2024 1:04 PM EST) Only the most recent of2 resultswithin the time period is included. White Blood Count 11.1(H) 4.8 - 10.8 X10*3/uL [facility] Red Blood Count 4.58 4.20 - 5.50 X10*6/uL [facility] Hemoglobin 14.7 12.0 - 16.0 g/dl [facility] Hematocrit 42.4 37.0 - 47.0 % [facility] Mean Corpuscular Volume 92.6 80.0 - 98.0 fL [facility] Mean Corpuscular Hemoglobin 32.1 27.0 - 33.0 pg [facility] Mean Corpuscular HGB Conc 34.7 31.0 - 35.0 g/dl [facility] Red Cell Distribution Width 12.5 11.0 - 16.0 % [facility] Platelet Count 253 160 - 400 X10*3/uL [facility] Mean Platelet Volume 10.1 9.4 - 12.3 fL [facility] Neutrophils Percent Auto 68.1 45 - 73 % [facility] Imm Gran Pct Auto 1.3(H) 0.0 - 0.4 % [facility] Lymphocytes Percent Auto 23.5 20 - 40 % [facility] Monocytes Percent Auto 5.8 2 - 11 % [facility] Eosinophils Percent Auto 0.8 0 - 4 % [facility] Basophils Percent Auto 0.5 0 - 2 % [facility] NRBC Pct Auto 0.0 0.0 - 0.2 /100WBC [facility] Neutrophils Absolute Auto 7.5 2.0 - 8.3 x10*3/uL [facility] Imm Gran Abs Auto 0.14(H) 0.00 - 0.03 X10*3/uL [facility] Lymphocytes Absolute Auto 2.6 1.2 - 4.9 X10*3/uL [facility] Monocytes Absolute Auto 0.6 0.1 - 1.2 X10*3/uL [facility] Eosinophils Absolute Auto 0.1 0.0 - 0.4 X10*3/uL [facility] Basophils Absolute Auto 0.1 0.0 - 0.2 X10*3/uL [facility] NRBC Abs Auto 0.000 0.0 - 0.012 X10*3/uL [facility] 06/29/2024 1:04 PM EST 06/29/2024 1:09 PM EST us Generic External Data Provider LAB BLOOD ORDERAB LES Final Result [facility] [address] [place] [phone] * hCG, Total, Quantitative (06/29/2024 1:04 PM EST) Only the most recent of2 resultswithin the time period is included. HCG Quantitative <2 mIU/mL [facility] Comment:Weeks post LMP Appro ximate hCG(Last Menstrual Period) Range (mIU/ml)3 - 4 weeks 9 - 1304 - 5 weeks 75 - 2,6005 - 6 weeks 850 - 20,8006 - 7 weeks 4000 - 100,2007 - 12 weeks 11,500 - 289,80706 - 16 weeks 18,300 - 137,17926 - 29 weeks (2nd trimester) 1,400 - 53,16533 - 41 weeks (3rd trimester) 940 - [...] Final Result Performing Organization Address [facility] Co de Phone Number [facility] [address] [place] [phone] * Lipase (06/29/2024 1:04 PM EST) Only the most recent of2 resultswithin the time period is included. Lipase 21 8 - 78 U/L [facility] 06/29/2024 1:04 PM EST 06/29/2024 1:09 PM EST Generic External Data Provider LAB BLOOD ORDERAB LES Final Result Performing Organization Address [facility] de Phone Number [facility] [address] [place] [phone] * (ABNORMAL) Comprehensive Metabolic Panel (06/29/2024 1:04 PM EST) Only the most recent of2 resultswithin the time period is included. Sodium 139 135 - 145 mmol/L [facility] Potassium 4.4 3.3 - 5.1 mmol/L [facility] Chloride 109(H) 96 - 108 mmol/L [facility] Carbon Dioxide 23 22 - 29 mmol/L [facility] Anion Gap 11(L) 12 - 20 [facility] Urea Nitrogen (BUN) 7(L) 9 - 16 mg/dL [facility] Creatinine, Serum 0.68 0.5 - 1.4 mg/dL [facility] Creatinine Clr Calc Pharmacy 108.4 [facility] Comment:Provided height and weight: 157.48 cm,79.379 kg.eGFR (calculated from the MDRD study equation) and eCrCl(calculated from the Cockcroft-Gault equation) are based ondifferent parameters and may not yield comparable results.If eCrCl result is absurd, please check patient'sheight/weight. Estimated Glomerular Filt Rate >60 [facility] Comment:Chronic Kidney Disea se: Estimated GFR < 60 mL/min/1.94h1Etlrun Kidney Disease: Estimated GFR < 15 mL/min/1.73m2 Glucose 207(H) 60 - 115 mg/dL [facility] Calcium 9.1 8.4 - 10.2 mg/dL [facility] Bilirubin, Total 0.2 0.0 - 1.0 mg/dL [facility] Aspartate Amino Transferase 31 5 - 31 U/L [facility] Alanine Aminotransferase 39(H) 0 - 31 U/L [facility] Total Protein 7.2 6.5 - 8.0 g/dL [facility] Albumin Level 4.3 3.5 - 5.0 g/dL [facility] Alkaline Phosphatase 75 39 - 117 U/L [facility] 06/29/2024 1:04 PM EST 06/29/2024 1:09 PM EST us Generic External Data Provider LAB BLOOD ORDERAB LES Final Result Performing Organization Address City/State/[facility] Co de Phone Number [facility] [address] [place] [phone] * XR KUB and Upright 2 Views (06/29/2024 12:19 PM EST) Anatomical Region Laterality Modality Radiographic Dilma ging 06/29/2024 12:1 9 PM EST Narrative 06/29/2024 12:53 PM EST ? [facility] ?[address] ?[place] [address] ?XRay Report ? Signed ? Patient: Normandin,Mai ?MR#: [id number] ?? 4 ? : 1985 ?Acct:[id number] ? Age/Sex: 38 / F ?ADM Date: 12/30/24 ? Loc: HO.ED ? Attending Dr: ? Ordering Physician: Scooby Chavez ?? Date of Service: 06/29/24 ?? Procedure(s): XR KUB ?? Accession Number(s): [id number] ? cc: Obdulia Elliott MD; Scooby Chavez [...] signed by Osei Tovar MD in OV> ?06/29/24 1251 ? DD/ 1219 ? TD/TT: 06/29/24 1231 ? Transporter Driver: MSM ? Procedure Note Cruz Ball - 06/29/2024 [place] [address] XRay Report Signed Patient: Javy Crow#: [id number] 4 : 1985Acct:[id number] Age/Sex: 38 / FADM Date: 06/29/24 Loc: HO.ED Attending Dr: Ordering Physician: Scooby Chavez Date of Service: 06/29/24 Procedure(s): XR KUB Accession Number(s): [id number] cc: Obdulia Elliott MD; Scooby Chavez EXAMINATION: [...] 06/29/24 1251 DD/ 1219 TD/TT: 06/29/24 1231 Transporter Driver: HAILEY [facility] External Provider IMG XR PROCEDURES Final Result * (ABNORMAL) POCT HGB A1C (06/29/2024 10:01 AM EST) Hemoglobin A1C 10.2(A) 4.0 - 6.0 % QC Media Lot # [id number] Lot# Expiration Date 81, Blood 06/29/2024 10:0 1 AM EST Florinda Phalen EMERGENCY VEHICLE DISPATCHER POINT OF CARE TEST ENTER/EDIT ORDERABLES Final Result * (ABNORMAL) POCT Glucose (06/29/2024 10:01 AM EST) Glucose Blood, POC 232(A) 60 - 200 mg/dL Comment:Random QC Media Lot # [id number] Lot# Expiration Date 482, Blood Capillary blood specimen / Unknown 06/29/2024 10:01 AM EST Florinda Phalen EMERGENCY VEHICLE DISPATCHER POINT OF CARE TEST ENTER/EDIT ORDERABLES Final Result * CT Chest w/o Contrast (06/19/2024 6:45 PM EST) Anatomical Region Laterality Modality Body, Chest Computed Tomogra phy 06/19/2024 6:45 PM EST Narrative 06/20/2024 1:29 PM EST ? [facility] [place] [facility] ?[address] ?[place] [address] ? [place] Scan Report ? Signed ? Patient: Normandin,Mai ?MR#: [id number] ?? 4 ? : 1985 ?Acct:[id number] ? Age/Sex: 38 / F ?ADM Date: 06/18/24 ? Loc: HO.IMC ?462-1 ? Attending Dr: Katelyn Schmitt MD ? Ordering Physician: Katelyn Schmitt MD ?? Date of Service: 06/19/24 ?? Procedure(s): CT chest wo IV con ?? Accession Number(s): [id number] ? cc: Obdulia Elliott MD; Katelyn Schmitt [...] DLP: ?? 407 mGy-cm ? FINDINGS: ? AUTOMATIC ENGRAVER: LINES/TUBES: Dance Hall Hostess reviewed, no lines. ? LUNGS: ?? Lung [...] DD/ 1845 ? TD/TT: 06/19/24 1906 ? Transporter Driver: HS ? Procedure Note Cruz Ball - 06/20/2024 [facility] [address] [facility] [place] [address] CT Scan Report Signed Patient: Mai Crow#: [id number] 4 : 1985Acct:[id number] Age/Sex: 38 / FADM Date: 06/18/24 Loc: [facility] 462-[address]: Katelyn Schmitt MD Ordering Physician: Katelyn Schmitt MD Date of Service: 06/19/24 Procedure(s): CT chest wo IV con Accession Number(s): [id number] cc: Obdulia Elliott MD; Katelyn Schmitt MD [...] CONTRAST: Noncontrasted study. DLP: 407 mGy-cm FINDINGS: AUTOMATIC ENGRAVER: LINES/TUBES: Dance Hall Hostess reviewed, no lines. LUNGS: Lung parenchyma: No [...] 06/20/24 1326 DD/ 1845 TD/TT: 06/19/24 1906 Transporter Driver: HS [facility] External Provider IMG CT PROCEDURES Edited Result - Final * C-reactive Protein (06/18/2024 5:11 PM EST) C Reactive Protein 0.28 < or = 0.50 mg/dL [facility] 06/18/2024 5:11 PM EST 06/18/2024 5:14 PM EST Generic External Data Provider LAB BLOOD ORDERAB LES Final Result [facility] [address] [place] [address] [phone] * Magnesium (06/18/2024 5:11 PM EST) Magnesium 2.1 1.6 - 2.6 mg/dL [facility] 06/18/2024 5:11 PM EST 06/18/2024 5:14 PM EST Generic External Data Provider LAB BLOOD ORDERAB LES Final Result Performing Organization Address [facility] Co de Phone Number [facility] [address] [place] [phone] * Sed Rate by Modified Westergren (06/18/2024 5:01 PM EST) Erythrocyte Sedimentation Rate 8 0 - 20 MM/HR [facility] Comment:Patients with polycy themia and many hemoglobin abnormalitiesmay have depressed sed rates whereas patients with anemiamay have elevated sed rates. 06/18/2024 5:01 PM EST 06/18/2024 5:11 PM EST Generic External Data Provider LAB BLOOD ORDERAB LES Final Result Performing Organization Address [facility] Phone Number [facility] [address] [place] [phone] * Prothrombin Time-INR (06/18/2024 5:01 PM EST) Prothrombin Time 11.8 10.9 - 12.4 SEC [facility] INTERNATIONAL NORM RATIO 1.0 0.9 - 1.1 [facility] Comment:INTERNATIONAL NORMAL IZED RATIO (INR) [...] ORDERAB LES Final Result Performing Organization Address [facility] Co de Phone Number [facility] [address] [place] [phone] * Lactic Acid (06/18/2024 5:01 PM EST) Only the most recent of2 resultswithin the time period is included. Lactic Acid 1.1 0.5 - 2.0 mmol/L [facility] 06/18/2024 5:01 PM EST 06/18/2024 5:11 PM EST Generic External Data Provider LAB BLOOD ORDERAB LES Final Result Performing Organization Address [facility]/ZIP Co de Phone Number [facility] [address] [place] [phone] * Lactic Acid (06/16/2024 10:25 PM EST) Lactic Acid 1.3 0.5 - 2.0 mmol/L [facility] 06/16/2024 10:2 5 PM EST 06/16/2024 10:27 PM EST Generic External Data Provider LAB BLOOD ORDERAB LES Final Result Performing Organization Address [facility] Co de Phone Number [facility] [address] [place] [phone] * Blood Culture (Second) (06/16/2024 8:29 PM EST) Blood Venous blood specimen / Unknown 06/16/2024 8:29 PM EST 06/16/2024 8:36 PM EST Comment:Blood Narrative [facility] - 06/21/2024 10:36 PM EST Blood Culture (Second) No growth after 5 days. Specimen Source: Blood Generic External Data Provider LAB MICROBIOLOGY - GENERAL ORDERABLES Final Result Performing Organization Address [facility] Co de Phone Number [facility] [address] [place] [phone] * Blood Culture (First) (06/16/2024 8:02 PM EST) Blood Venous blood specimen / Unknown 06/16/2024 8:02 PM EST 06/16/2024 8:05 PM EST Comment:Blood Narrative [facility] - 06/21/2024 10:05 PM EST Blood Culture (First) No growth after 5 days. Specimen Source: Blood us Generic External Data Provider LAB MICROBIOLOGY - GENERAL ORDERABLES Final Result Performing Organization Address [facility] Co de Phone Number [facility] [address] [place] [phone] * (ABNORMAL) Glucose, Whole Blood (06/16/2024 7:48 PM EST) Glucose, Whole Blood 366(HH) 60 - 115 mg/dL [facility] Comment:METER #: [id number] 06/16/2024 7:48 PM EST 06/16/2024 7:51 PM EST Generic External Data Provider LAB BLOOD ORDERAB LES Final Result Performing Organization Address [facility]/[employer] de Phone Number [facility] [address] [place] [phone] * CT Abdomen Pelvis w/ Contrast (06/16/2024 7:45 PM EST) Anatomical Region Laterality Modality Body, Pelvis, Abdomen Computed T omography 06/16/2024 7:45 PM EST Narrative 06/16/2024 9:57 PM EST ? [facility] ?[address] ?[place] [address] ? CT Scan Report ? Signed ? Patient: Normandin,Mai ?MR#: [id number] ?? 4 ? : 1985 ?Acct:[id number] ? Age/Sex: 38 / F ?ADM Date: 12/17/24 ? Loc: HO.ED ? Attending Dr: ? Ordering Physician: Damaris Mora ?? Date of Service: 06/16/24 ?? Procedure(s): CT abdomen pelvis w IV con ?? Accession Number(s): [id number] ? cc: Obdulia Elliott MD; Damaris Mora [...] PM EST RP ? Dictated By: ?Osei Tovra MD ? Signed By: ?<Electronically signed by Osei Tovar MD in OV> ?06/16/24 2154 ? DD/ 1946 ? TD/TT: 06/16/242021 ? Transporter Driver: MSM ? Procedure Note Quinn, Image - 06/16/[address] [place] [address] [address] Scan Report Signed Patient: Javy Crow#: [id number] 4 : 1985Acct:[id number] Age/Sex: 38 / FADM Date: 06/16/24 Loc: HO.ED Attending Dr: Ordering Physician: Damaris Mora Date of Service: 06/16/24 Procedure(s): CT abdomen pelvis w IV con Accession Number(s): [id number] cc: Obdulia Elliott MD; Damaris Mora EXAMINATION: [...] in OV> 06/16/242153 DD/ 44 TD/TT: 06/16/242021 Transporter Driver: HAILEY [facility] External Provider IMG CT PROCEDURES Final Result * (ABNORMAL) Albumin, Random Urine W/Creatinine (02/20/2024 11:40 AM EDT) Creatinine, Urine 82.08 mg/dL [facility] Microalbumin Urine 50.0 mg/L [facility] Microalbum Creatinine Ratio Ur 60.9(H) <30 ug/mg cr [facility] Comment:Albumin/Creatinine R atio Reference Ranges: Normal: < 30 ug/mg creatinine Microalbuminuria: 30 - 300 ug/mg creatinineClinical Albuminuria: > 300 ug/mg creatinine Urine (Urine, Random) 02/20/2024 11:40 AM EDT 02/20/2024 2:11 PM EDT Obdulia Elliott MD LAB URINE ORDERABLES Final Re sult [facility] [address], [place] [phone] * (ABNORMAL) Lipid Panel, Standard (02/20/2024 11:38 AM EDT) Triglycerides 387(H) <150 mg/dL [facility] Comment:Desirable Triglyceri de: less than 150 mg/dLBorderline High Triglyceride 150-199 mg/dLHigh Triglyceride: 200-499 mg/dLVery High Triglyceride: greater than or equal to 5OO mg/dL Cholesterol 284(H) <200 mg/dL [facility] Comment:Desirable Cholestero l: less than 200 mg/dLBorderline High Cholesterol: 200-239 mg/dLHigh Cholesterol: greater than 239 mg/dL LDL Cholesterol Calculated 168(H) <100 mg/dL [facility] Comment:Desirable LDL: less than 100 mg/dLNear Optimal/Above Optimal LDL: 110- 129 mg/dLBorderline High LDL: 130-159 mg/dLHigh LDL: 160-189 mg/dLVery High LDL: greater than or equal to 190 mg/dL HDL Cholesterol 39(L) >40 mg/dL [facility] Comment:Desirable HDL: great er than 40 mg/dL Note: This HDL assay may give artificially low results in patients with liver disease. Blood Venous blood specimen / Unknown 02/20/2024 11:38 AM EDT 02/20/2024 2:14 PM EDT us Obdulia Elliott MD LAB BLOOD ORDERABLES Final Re sult [facility] [address] [place] [phone] * (ABNORMAL) Image-Guided Pap with Age-Based Screening Protocols (10/23/2022 11:23 AM EDT) Comment [facility] Comment: This order for age-based cervical cancer and STI screening follows ACOG guidelines(PB 168, 140, XQO343). See individual assays for performing site location. Clinical Information: None given [facility] LMP: NONE GIVEN [facility] Prev. PAP: NONE GIVEN [facility] Prev. BX: YES [facility] SOURCE: None given [facility] Statement Of Adequacy: [facility] Comment: Satisfactory for evaluation. Endocervical/transformation zone component absent. Interpretation/ Result: Negative for intraepithelial lesion or malignancy. [facility] COMMENT: This Pap test has been evaluated with computer assisted technology. [facility] Cytotechnologis t: [facility] Comment: ZAMORA, CT(ASCP) CT screening location: [address] ??[address] Review Cytotechnologis t: [employer] [place] [facility] Comment: DCR, CT(ASCP) CT screening location: [address] ??[address] (Always Message) [employer] [place] [facility] Comment: EXPLANATORY NOTE: The Pap is a [...] information. HPV nRNA E6/E7 Detected(A) Not Detected [employer] [place] [facility] Comment: Methodology: Threading Machine Tender-Mediated Amplification This assay detects E6/E7 viral messenger RNA (mRNA) from 14 high-risk HPV types (16,18,31,33,35,39,45,51,52,56,58,59,66,68). Cervical sources are required for HPV testing. If a vaginal source from a patient who has had a total hysterectomy with removal of cervix was submitted, please contact the testing laboratory for alternative testing options. For additional information, please refer to http://education.[employer]/faq/ZXC291u0 (This link if provided for information/ educational purposes only.) Specimen from uterine cervix (specimen) 10/23/2022 11:23 AM EDT 10/24/2022 7:46 AM EDT us Obdulia Elliott MD LAB BLOOD ORDERABLES Final Re sult [facility] [address], [place] [address] [employer] [place] [facility] [address] [place] [address] * HPV Genotypes 16,18/45 (10/23/2022 11:23 AM EDT) HPV 16 RNA NOT DETECTED NOT DETECTED [employer] [place] [facility] HPV 18/45 RNA NOT DETECTED NOT DETECTED [employer] [place] [facility] Comment: Methodology: Threading Machine Tender Mediated Amplification Cervical sources are required for HPV testing. If a vaginal source from a patient who has had a total hysterectomy with removal of cervix was submitted, please contact the testing laboratory for alternative testing options. 10/23/2022 11:2 3 AM EDT 10/24/2022 7:46 AM EDT us Obdulia Elliott MD LAB BLOOD ORDERABLES Final Re sult [facility] [address] [facility], [facility], [place] [address] [employer] [facility] [address] [place] [address] * BI Mammogram Diagnostic Tomosynthesis Right (09/27/2022 8:25 AM EDT) Anatomical Region Laterality Modality Breast Right Mammography 09/27/2022 8:25 AM EDT Narrative 09/27/2022 10:17 AM EDT ? [facility] ? [address] ?[place] [address] ? Mammography Report ? Signed ? Patient: Normandin,Mai ?MR#: [id number] ?? 4 ? : 1985 ?Acct:[id number] ? Age/Sex: 37 / F ?ADM Date: /30/23 ? Loc: HO.MAMMO ? Attending Dr: Obdulia Elliott MD ? Ordering Physician: Obdulia Elliott MD ?Results: 3.6MProbably Benign Finding - Short 6 M F/U ?? Suggested ? Date of Service: 09/27/22 ?Follow Up: Surgical Consult ? Procedure(s): MM tomosynthesis diagnostic RT ?? Accession Number(s): [id number] ? cc: Obdulia Elliott MD ? EXAMINATION: [...] ? Signed By: ?<Electronically signed by Bernard R Lea, MD in OV> ?09/27/22 1014 ? DD/ ? TD/TT: ? Transporter Driver: SALGADO ? Procedure Note Quinn, Image - 09/27/2022 [facility] [address] [place] [address] [place] [address] Mammography Report Signed Patient: Javy Crow#: [id number] 4 : 1985Acct:[id number] Age/Sex: 37 / FADM Date: 09/27/22 Loc: HO.MAMMO Attending Dr: Obdulia Elliott MD Ordering Physician: Obdulia Elliott MD Results: 3.6MProbably Benign Finding - Short 6 M F/U Suggested Date of Service: 09/27/22Follow Up: Surgical Consult Procedure(s): MM tomosynthesis diagnostic RT Accession Number(s): [id number] cc: Obdulia Elliott MD EXAMINATION: MM DIAGNOSTIC [...] in OV> 09/27/22 1014 DD/ 0825 TD/TT: Transporter Driver: SALGADO [facility] External Provider IMG BI PROCEDURES Final Result from Last 3 Months or Most Recently Relevant to Health Maintenance Insurance [employer] MEDICARE ADVANTAGE HMO Care Teams General Road Supervisor Relationship Specialty Start Date End Date Obdulia Elliott MD [address] [facility] [place] [phone] PCP - General Family Medicine 07/01/18
--- OUTSIDE RECORDS SUMMARY | 2024-09-02 16:33 | XMS_ITS | Encounter Summary ---
Author Organization [employer] Address [address] [facility] 7 [place] [address] Care Team Providers Care Operations Vice President Name Role Phone Obdulia Elliott MD Primary Care Provider [phone] Reason for Visit * Reason Onset Date Comments Med Refill 08/27/2024 Encounter Details Date Type Department Care Team ([facility] st Contact Info) Description 08/27/2024 Refill [facility] MED & PEDS [address] [place] [address] Marci Valiente MD [address] [place] [address] Chronic bilateral low back pain without sciatica [...] Description 09/10/2024 11:30 AM EDT Office Visit [facility] MED & PEDS [address] [place] [address] Obdulia Elliott MD [address] [place] [address] 09/15/2024 10:30 AM EDT Medication Management [facility] MED & PEDS [address] [place] [address] Nayely Bird, PharmD [address] [place], [place] [phone] documented as of this encounter Visit Diagnoses Diagnosis Chronic bilateral low back pain without sciatica documented in this encounter Additional Health Concerns Assessment Noted Time PHQ-9 Depression Total Score: 8 02/20/20 24 11:38 AM EDT documented as of this encounter Care Teams Operations Vice President Relationship Specialty Start Date End Date Obdulia Elliott MD [address] [place] [address] PCP - General Family Medicine 07/01/18 documented as of this encounter
--- OUTSIDE RECORDS SUMMARY | 2024-09-02 16:33 | XMS_ITS | Encounter Summary ---
Author Organization [employer] Address 75 [facility] 7t [place] [address] Care Team Providers Care Jewelry Dipper Name Role Phone Obdulia Elliott MD Primary Care Provider [phone] Encounter Details Date Type Department Care Team ([facility] Contact Info) Description 04/03/2024 Orders Only [facility] CHC MED & PEDS [address] [place], [place] [phone] Obdulia Elliott MD [address] [place], [place] [phone] Social History Tobacco Use Types Packs/Day Years [...] [facility] MED & PEDS [address] [place] [address] Obdulia Elliott MD [address] [place] [address] 09/15/2024 10:30 AM EDT Medication Management [facility] MED & PEDS [address] [place] [address] Nayely Bird, PharmD [address] [place], [place] [phone] documented as of this encounter Visit Diagnoses Not on filedocumented in this encounter Additional Health Concerns Assessment Noted Time PHQ-9 Depression Total Score: 8 02/20/20 24 11:38 AM EDT documented as of this encounter Care Teams Jewelry Dipper Relationship Specialty Start Date End Date Obdulia Elliott MD [address] [place] [address] PCP - General Family Medicine 07/01/18 documented as of this encounter
--- OUTSIDE RECORDS SUMMARY | 2024-09-02 16:33 | XMS_ITS | Encounter Summary ---
Author Organization [employer] Address 75 [facility] 7t [place] [address] Care Team Providers Care Concrete Laborer Name Role Phone Obdulia Elliott MD Primary Care Provider [phone] Reason for Visit * Reason Comments Med Refill Encounter Details Date Type Department Care Team ([facility] Contact Info) Description 08/03/[address] [facility] CHC MED & PEDS [address] [place], [place] [phone] Marci Valiente MD [address] [place], [place] [phone] Chronic bilateral low back pain without sciatica [...] [facility] [place] [facility] [address] [place] [address] Obdulia Elliott MD [address] [place] [address] 09/15/2024 10:30 AM EDT Medication Management [facility] MED & PEDS [address] [place] [address] Nayely Bird, PharmD [address] [place], [place] [phone] documented as of this encounter Visit Diagnoses Diagnosis Chronic bilateral low back pain without sciatica documented in this encounter Additional Health Concerns Assessment Noted Time PHQ-9 Depression Total Score: 8 02/20/20 24 11:38 AM EDT documented as of this encounter Care Teams Concrete Laborer Relationship Specialty Start Date End Date Obdulia Elliott MD [address] [place] [address] PCP - General Family Medicine 07/01/18 documented as of this encounter
--- OUTSIDE RECORDS SUMMARY | 2024-09-02 16:33 | XMS_ITS | Encounter Summary ---
Author Organization [employer] Address [address] [place] [address] [place] [address] Care Team Providers Care Access Spec Name Role Phone Obdulia Elliott MD Primary Care Provider [phone] Reason for Visit * Reason Comments Med Refill Encounter Details Date Type Department Care Team ([facility] st Contact Info) Description 11/23/2022 Refill [facility] CHC MED & PEDS [address] [place] [address] Obdulia Elliott MD [address] [place] [address] Social History Tobacco Use Types Packs/Day Years [...] Description 09/10/2024 11:30 AM EDT Office Visit [facility] CHC MED & PEDS [address] [place] [address] Obdulia Elliott MD [address] [place] [address] 09/15/2024 10:30 AM EDT Medication Management [facility] MED & PEDS [address] [place] [address] Nayely Bird, PharmD [address] [place] [address] documented as of this encounter Visit Diagnoses Not on filedocumented in this encounter Care Teams Access Spec Relationship Specialty Start Date End Date Obdulia Elliott MD [address] [place] [address] PCP - General Family Medicine 07/01/18 documented as of this encounter
--- OUTSIDE RECORDS SUMMARY | 2024-09-02 16:33 | XMS_ITS | Encounter Summary ---
Author Organization [employer] Address 75 [facility] 7 [place] [address] Care Team Providers Care Opinion Polls Survey Worker Name Role Phone Obdulia Elliott MD Primary Care Provider [phone] Reason for Visit * Reason Onset Date Comments Nurse Triage 04/22/2024 Encounter Details Date Type Department Care Team ([facility] st Contact Info) Description 04/22/2024 Telephone [facility] MEDICINE [address] [place] [address] Obdulia Elliott MD [address] [place], [place] [phone] Nurse Triage Social History Tobacco Use Types [...] agrees to try this. ASK apt in [facility] today at 220pm. Unable to check [...] [facility] MED & PEDS [address] [place] [address] Obdulia Elliott MD [address] [place] [address] 09/15/2024 10:30 AM EDT Medication Management [facility] MED & PEDS [address] [place] [address] Nayely Bird, PharmD [address] [place] [address] documented as of this encounter Visit Diagnoses Not on filedocumented in this encounter Additional Health Concerns Assessment Noted Time PHQ-9 Depression Total Score: 8 02/20/20 24 11:38 AM EDT documented as of this encounter Care Teams Opinion Polls Survey Worker Relationship Specialty Start Date End Date Obdulia Elliott MD [address] [place] [address] PCP - General Family Medicine 07/01/18 documented as of this encounter
--- OUTSIDE RECORDS SUMMARY | 2024-09-02 16:33 | XMS_ITS | Encounter Summary ---
Author Organization [employer] Address 75 [facility] 7t [place] [address] Care Team Providers Care Cider Press Operator Name Role Phone Obdulia Elliott MD Primary Care Provider [phone] Encounter Details Date Type Department Care Team ([facility] st Contact Info) Description 07/14/2024 Telephone [facility] MEDICINE [address] [place], [place] [phone] Obdulia Elliott MD [address] [facility] [address] [place], [place] [phone] Social History Tobacco Use Types Packs/Day Years [...] 11:30 AM EDT Office Visit [facility] MED & PEDS [address] [place] [address] Obdulia Elliott MD [address] [place] [address] 09/15/2024 10:30 AM EDT Medication Management [facility] MED & PEDS [address] [place] [address] Nayely Bird, PharmD [address] [place], [place] [phone] documented as of this encounter Visit Diagnoses Not on filedocumented in this encounter Additional Health Concerns Assessment Noted Time PHQ-9 Depression Total Score: 8 02/20/20 24 11:38 AM EDT documented as of this encounter Care Teams Cider Press Operator Relationship Specialty Start Date End Date Obdulia Elliott MD [address] [place] [address] PCP - General Family Medicine 07/01/18 documented as of this encounter
--- OUTSIDE RECORDS SUMMARY | 2024-09-02 16:33 | XMS_ITS | Encounter Summary ---
Author Organization [employer] Address 75 [facility] 7 [place] [address] Care Team Providers Care Agronomy Technician Name Role Phone Obdulia Elliott MD Primary Care Provider [phone] Reason for Visit * Reason Onset Date Comments Med Refill 04/21/2024 Encounter Details Date Type Department Care Team ([facility] st Contact Info) Description 04/21/2024 Refill [facility] CHC MED & PEDS [address] [place] [address] Obdulia Elliott MD [address] [place] [address] Chronic bilateral low back pain without sciatica [...] 09/10/2024 11:30 AM EDT Office Visit [facility] MED & PEDS [address] [place] [address] Obdulia Elliott MD [address] [place] [address] 09/15/2024 10:30 AM EDT Medication Management [facility] MED & PEDS [address] [place] [address] Nayely Bird, PharmD [address] [place], [place] [phone] documented as of this encounter Visit Diagnoses Diagnosis Chronic bilateral low back pain without sciatica documented in this encounter Additional Health Concerns Assessment Noted Time PHQ-9 Depression Total Score: 8 02/20/20 24 11:38 AM EDT documented as of this encounter Care Teams Agronomy Technician Relationship Specialty Start Date End Date Obdulia Elliott MD [address] [place] [address] PCP - General Family Medicine 07/01/18 documented as of this encounter
--- OUTSIDE RECORDS SUMMARY | 2024-09-02 16:33 | XMS_ITS | Clinical Summary ---
Author Organization [facility] Address [address] [place] [address] Care Team Providers Care Plumber Helper Name Role Phone Unavailable Primary Care Provider [...]
--- OUTSIDE RECORDS SUMMARY | 2024-09-02 16:33 | XMS_ITS | Encounter Summary ---
Author Organization [employer] Address 75 [facility] 7 [place] [address] Care Team Providers Care Supervisor Engine Assembly Name Role Phone Obdulia Elliott MD Primary Care Provider [phone] Reason for Visit * Reason Onset Date Comments Med Refill 04/13/2024 Encounter Details Date Type Department Care Team ([facility] st Contact Info) Description 04/13/2024 Refill [facility] CHC MED & PEDS [address] [place] [address] Obdulia Elliott MD [address] [place] [address] Chronic bilateral low back pain without sciatica [...] 11:30 AM EDT Office Visit [facility] MED & PEDS [address] [place] [address] Obdulia Elliott MD [address] [place] [address] 09/15/2024 10:30 AM EDT Medication Management [facility] MED & PEDS [address] [place] [address] Nayely Bird, PharmD [address] [place], [place] [phone] documented as of this encounter Visit Diagnoses Diagnosis Chronic bilateral low back pain without sciatica documented in this encounter Additional Health Concerns Assessment Noted Time PHQ-9 Depression Total Score: 8 02/20/20 24 11:38 AM EDT documented as of this encounter Care Teams Supervisor Engine Assembly Relationship Specialty Start Date End Date Obdulia Elliott MD [address] [place] [address] PCP - General Family Medicine 07/01/18 documented as of this encounter
--- OUTSIDE RECORDS SUMMARY | 2024-09-02 16:33 | XMS_ITS | Encounter Summary ---
Author Organization [employer] Address 75 [facility] 7t [place] [address] Care Team Providers Care Central Service Technician Name Role Phone Obdulia Elliott MD Primary Care Provider [phone] Encounter Details Date Type Department Care Team (Late st Contact Info) Description 02/15/2024 Orders Only [facility] MEDICINE [address] [place], [place] [phone] Amy Corado MD [address] [place], [place] [phone] Social History Tobacco Use Types Packs/Day Years [...] Description 09/10/2024 11:30 AM EDT Office Visit [facility] MED & PEDS [address] [place] [address] Obdulia Elliott MD [address] [place] [address] 09/15/2024 10:30 AM EDT Medication Management [facility] MED & PEDS [address] [place] [address] Nayely Bird, PharmD [address] [place], [place] [phone] documented as of this encounter Visit Diagnoses Not on filedocumented in this encounter Additional Health Concerns Assessment Noted Time PHQ-9 Depression Total Score: 14 024 11:44 AM EST documented as of this encounter Care Teams Central Service Technician Relationship Specialty Start Date End Date Obdulia Elliott MD [address] [place] [address] PCP - General Family Medicine 07/01/18 documented as of this encounter
== END 2024-09-02 14:36 | disposition home or self-care (01) ==
PROVIDERS: PCP Pediatrics; Referring Provider Pediatrics; Visit Provider Physician Assistant
DX: M54.6 Pain in thoracic spine (principal)
CPT/HCPCS: 99204

== ENCOUNTER → 2024-09-02 13:51 | Outpatient (BNVA) | payer MEDICARE, MEDICAID, SELFPAY | PROVIDERS: PCP Pediatrics; Referring Provider Pediatrics; Visit Provider Physician Assistant | DX: M54.6 Pain in thoracic spine (principal); M79.7 Fibromyalgia | CPT/HCPCS: 99202 ==

== ENCOUNTER → 2024-09-26 08:34 | Outpatient (BNV) | payer MEDICARE, MEDICAID, SELFPAY | PROVIDERS: PCP Internal Medicine; Visit Provider Radiology Diagnostic Radiology | DX: M51.24 Other intervertebral disc displacement, thoracic region (principal) | CPT/HCPCS: 72146 ==

== ENCOUNTER 2024-09-26 08:36 | Outpatient (REF) | payer MEDICARE, MEDICAID, SELFPAY ==
--- NOTE | ~2024-09-26 | MR_ITS ---
EXAMINATION: MR THORACIC SPINE WITHOUT CONTRAST CLINICAL INFORMATION: Pain in the thoracic spine. COMPARISON: Correlated to x-ray dated August 27, 2024 TECHNIQUE: MRI of the thoracic spine was obtained using routine sequences without contrast. FINDINGS: No bone marrow STIR signal abnormality. There is disc desiccation at T6-7 and T7-8. There is focal hyperintense T2 STIR signal within the posterior intervertebral discsT at 6-7 and T7-8 related to annular fissure. C7-T1: No disc herniation. T1-2: No disc herniation. T2-3: No disc herniation. T3-T4: No disc herniation. T4-5: No disc herniation. T5-6: No disc herniation. T6-7: Right subarticular disc herniation resulting in ventral spinal cord deformity. No cord signal abnormality. T7-8: Right subarticular disc herniation resulting in ventral spinal cord deformity. No cord signal abnormality. T8-9: No disc herniation. T9-10: Left subarticular disc herniation. No cord compression. No cord signal abnormality. Likely artifactual T2 signal on the axial not demonstrated on sagittal sequences. T10-11: No disc herniation. T11-12: Broad-based disc bulging. Facet joint hypertrophy. No cord compression. T12-L1: No disc herniation. Conus medullaris ends at inferior endplate of T12 with normal signal. No prevertebral compartment hematoma, mass or fluid collection.. 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 Left subarticular disc herniation T9-10 without cord compression. Electronically signed by: Higinio Salinas MD 09/28/2024 08:18 AM EDT
== END 2024-09-26 08:37 | disposition home or self-care (01) ==
LOC: HO.MRI 08:36
PROVIDERS: PCP Internal Medicine; Visit Provider Physician Assistant
DX: M54.6 Pain in thoracic spine (principal)
CPT/HCPCS: 72146

== ENCOUNTER 2024-10-09 12:53 | Outpatient (AMB) | payer MEDICARE, MEDICAID, SELFPAY ==
--- NOTE | 2024-10-09 12:55 | MHC.OFFVIS ---
Vital Signs 10/09/24 12:57 Height 5 ft 2 in Weight 174 lb 2.643 oz BMI 31.9 BP 165/86 H Blood Pressure Location Lt brachial Position Sitting Pulse 94 Pulse Source Pulse Oximeter Pulse Oximetry (%) 99 Intake Visit Reasons: September Second Opinion Allergies Sulfa (Sulfonamide Antibiotics) [SULFA (SULFONAMIDE ANTIBIOTICS)] Allergy (Unknown, Verified 10/09/24 12:57) RASH HPI Comments Details: 38 y.o F with PMH of obesity, T2DM, HTN, bipolar disorder, smoking who is here for second opinion for severe left sided abd pain. Pt was seen in hospital for abd pain with chronic diarrhea 05/2024. EGD/colo 1. Normal esophagus (biopsy) 2. Gastritis (biopsy) 3. Small hiatal hernia 4. Duodenitis (biopsy) 5. Normal colon and terminal ileum mucosa (biopsy) 6. Total of 3 polyps removed 7. Internal hemorrhoids Path: A. Colon, right side, biopsy: Colonic mucosa within normal limits; negative for active, chronic or microscopic colitis. B. Colon, cecum, polypectomy: Polypoid colonic mucosa noted; negative for a hyperplastic or neoplastic process. C. Colon, left side, biopsy: Colonic mucosa within normal limits; negative for active, chronic or microscopic colitis. D. Colon, sigmoid, polypectomy: Hyperplastic polyp. E. Rectum, polypectomy: Hyperplastic polyp. F. Duodenum, biopsy: Duodenal mucosa within normal limits; preserved villous architecture and no increase in intraepithelial lymphocytes. G. Stomach, random, biopsy: Gastric antral mucosa within normal limits; negative for Helicobacter pylori, intestinal metaplasia and dysplasia. H. Esophagus, lower, biopsy: Squamous mucosa within normal limits; negative for inflammation (including intraepithelial eosinophils), fungal organisms, and intestinal metaplasia. I. Esophagus, middle, biopsy: Squamous mucosa within normal limits; negative for inflammation (including intraepithelial eosinophils), fungal organisms, and intestinal metaplasia. Pt reports those sx have resolved but now for the past 3 months has been having burning sharp pain in LUQ. Different in character, more burning and sharp. Very focal. Does not change with food or movement. Does not report prior rash developing here to suspect herpetic neuralgia. [facility] Medical History Chronic idiopathic constipation Family history of Crohn's disease Facial infection Hypokalemia Duodenitis Esophagitis Gastritis Colon polyps Diabetes Fibromyalgia Elevated cholesterol HTN (hypertension) Nipple pain External hemorrhoids Breast pain, right Bipolar 2 disorder Surgical History H/O esophagogastroduodenoscopy H/O colonoscopy History of incision and drainage (10/05/22) History of lymph node excision History of carpal tunnel release of both wrists History of appendectomy History of cholecystectomy History of tonsillectomy Family History Maternal Uncle Kidney cancer Maternal Grandfather Bladder cancer Social History Household Members: Family Housing: House Do you presently have visiting nurse or other home services: No Alcohol intake: never Patient Tobacco Use Status: Current everyday Tobacco user Tobacco use type: Cigarette Cigarette Packs Per Day: 0.5 Cigarettes Per Day: 10.0 Years Smoked: sine age 12 e-Cigarette/Vaping Use: Never Used Second Hand Smoke Exposure: Yes Substance Use Type: Marijuana service: No Sexual orientation: Don't Know Review of Systems Const All systems reviewed & are unremarkable except as noted in HPI and below Physical Exam Vital Signs: Last Vital Signs Pulse 94 10/09/24 12:57 BP 165/86 H 10/09/24 12:57 Pulse Ox 99 10/09/24 12:57 BMI result Body Mass Index 31.9 No apparent distress Nonicteric Abdomen soft, nondistended, focal pain in L side 3 cm away from umbilicus, see below. Alert and oriented x3, normal gait GI Abdomen image: 1. focal pain and tenderness even to light touch Office Procedures Injection Trigger Point Multi Site was marked and prepped with iodine swab. While lightly pinching the skin, a 25g 1.5inch needle was inserted perpendicularly. 2ml of 1% lidocaine was injected at the site to confirm appropriate location and for local anesthesia. This was then followed with 1ml of Triamcinolone (40mg). Minimal bleeding was noted at the end of procedure. A band aid was applied.? Trigger Point Multiple: 05012- Trigger point injection =/>3 Assessment & Plan Assessment & Plan (1) Left sided abdominal pain: Code(s): R10.9 - Unspecified abdominal pain Category: Medical Plan: Overall presentation very suspicious for ACNES given focal tenderness even to light touch and taser like pain description with neg w.up otherwise. Discussed trial of trigger point inj which the pt is agreeable to. See details above. Pt had almost immediate relief of pain which continued to improve while the pt was checking out. Appt to be made in 3 months for re-injection. Coding Level of Care Code Est Pt Level 4 (57051) Diagnoses Left sided abdominal pain R10.9 CPT Codes Details - Trigger Point Multiple: 46834- Trigger point injection =/>3 ([id number])
[2024-10-09 12:57] VITALS: BP 165/86; PULSE 94; O2SAT 99; BMI 31.9
--- OUTSIDE RECORDS SUMMARY | 2024-10-09 13:25 | XMS_ITS | Clinical Summary ---
Author Organization [employer] Address [address] [facility] 7t [place] [address] Care Team Providers Care Wine Maker Name Role Phone Obdulia Elliott MD Primary Care Provider [phone] Allergies Active Allergy Reactions Criticality Noted Date [...] EVERY DAY 90 tablet 3 024 Active glucose blood (FREESTYLE LITE) test stripIndications: Type 2 diabetes mellitus without complication, without long-term current use of insulin ([facility]) Check BS tid 100 strip 11 Active [...] 1 capsule by mouth 2 times daily. 024 Active ondansetron (Zofran) 8 MG tablet Take 1 tablet by mouth every 8 (eight) hours if needed for nausea or vomiting. 024 Active FREESTYLE LITE test stripIndications: Diabetes mellitus without complication ([facility]) Use to test blood sugar 1-2 times daily 100 each 12 024 2024 Active Lancets miscIndications:D iabetes mellitus without complication ([facility]) Use to test blood sugar 1-2 times daily 100 each 024 Active Alcohol Swabs 70 % padsIndications:D iabetes mellitus without complication ([facility]) Use to test blood sugar 1-2 times daily 100 each 024 Active Blood Glucose Monitoring Suppl (FreeStyle [place] Lite) w/Device kitIndications:Di abetes mellitus without complication ([facility]) Use to test blood sugar 1-2 times [...] 1 tablet by mouth 2 times daily. 025 Active polyethylene glycol, PEG, 3350 (Glycolax) 17 GM/SCOOP powder MIX AND TAKE 17G BY MOUTH EVERY DAY NEEDED FOR CONSTIPATION Active lisinopril 20 MG tabletIndications :Primary hypertension Take 1 tablet (20 mg) by mouth in the morning. 90 tablet 2 025 Active Dulaglutide (Trulicity) 3 MG/0.5ML solution auto-injectorIndi cations:Diabetes mellitus without complication ([facility]) Inject 3 mg under the skin 1 (one) time per week. 2 mL 11 025 Active glipiZIDE XL (Glucotrol XL) 10 MG 24 hr tablet Take 1 tablet (10 mg) by mouth Once per day. 30 tablet 5 Active pregabalin (Lyrica) 75 MG capsule Take 1 capsule (75 mg) by mouth 2 times daily. 60 capsule 025 2025 Active cloNIDine (Catapres) 0.1 MG tabletIndications :Primary hypertension TAKE 1 TABLET BY MOUTH THREE TIMES DAILY NEEDED 270 tablet 025 Active Jardiance 25 MGIndications:Karla betes mellitus without complication (CMS/HCC) TAKE 1 TABLET BY MOUTH ONCE DAILY 30 tablet 11 025 Active tiZANidine (Zanaflex) 4 MG tabletIndications :Chronic bilateral low back pain without sciatica TAKE 1 TABLET BY MOUTH THREE TIMES DAILY NEEDED 90 tablet Active empagliflozin (Jardiance) 25 MGIndications:Karla betes mellitus without complication (CMS/HCC) Take 1 tablet (25 mg) by mouth Once per day. 30 tablet 11 024 2024 Discontinued tiZANidine (Zanaflex) 4 MG tabletIndications :Chronic bilateral low back pain without sciatica TAKE 1 TABLET BY MOUTH THREE TIMES DAILY NEEDED 90 tablet 025 2024 Discontinued doxycycline (Vibra-Tabs) 100 MG tablet Take 1 tablet (100 mg) by mouth 2 times daily for 10 days. Take with a full glass of water and do not lie down for at least 30 minutes after. 20 tablet 025 2024 Active Problems Problem Noted Date Diagnosed Date [...] Encounters Date Type Department Care Team Description 09/25/2024 Refill [facility] [address] [place] [address] Obdulia Elliott MD Diabetes mellitus without complication (CMS/HCC); Chronic bilateral low back pain without sciatica 09/17/2024 Orders Only [facility] [address] [place] [address] Obdulia Elliott MD 09/15/2024 Telephone [facility] [address] [place] [address] Obdulia Elliott MD 09/03/2024 Telephone [facility] [address] [place] [address] Obdulia Elliott MD 09/02/2024 Telephone [facility] [address] [place] [address] Obdulia Elliott MD Nurse Triage 08/30/2024 Orders Only [facility] [address] [place] [address] Obdulia Elliott MD Spinal stenosis of lumbar region, unspecified whether neurogenic claudication present (Primary Dx) 08/27/2024 Orders Only [facility] External Provider, [facility] 08/27/2024 Refill [facility] [address] [place] [address] Marci Valiente MD Chronic bilateral low back pain without sciatica 08/26/2024 Telephone [facility] [address] [place] [address] Elsi Stephen, RN 08/26/2024 Telephone [facility] [address] [place] [address] Elsi Stephen, RN 08/26/2024 Telephone [facility] [address] [place] [address] Elsi Stephen, RN Med Refill 08/26/2024 Refill [facility] [address] [place] [address] Obdulia Elliott MD Primary hypertension 08/26/2024 Telephone [facility] [address] [place] [address] Obdulia Elliott MD Med Refill 08/25/2024 11:15 AM EST Office Visit [facility] [address] [place] [address] Obdulia Elliott MD Sacroiliitis, not elsewhere classified (CMS/HCC) (Primary Dx); Dietary counseling; Exercise counseling; Uncontrolled type 2 diabetes mellitus with hyperglycemia (CMS/HCC); Back pain of lumbosacral region with sciatica 08/25/2024 Travel 08/19/2024 Orders Only [facility] [address] [place] [address] Obdulia Elliott MD Pelvic pain (Primary Dx); Cyst of left ovary 08/03/2024 Refill [facility] [address] [place] [address] Marci Valiente MD Chronic bilateral low back pain without sciatica 07/29/2024 Orders Only [facility] [address] [place] [address] Obdulia Elliott MD Type 2 diabetes mellitus without complication, without long-term current use of insulin (CMS/HCC) (Primary Dx); Uncontrolled type 2 diabetes mellitus with hyperglycemia (CMS/HCC) 07/29/2024 Telephone [facility] [address] [place] [address] Nayely Bird PharmD 07/24/2024 Orders Only [facility] [address] [place] [address] Obdulia Elliott MD History of hepatitis C (Primary Dx) 07/24/2024 Telephone [facility] [address] [place] [phone] Sarah Baires, meat inspector Orders 07/23/2024 3:30 PM EST Office Visit [facility] [address] [place] [address] Obdulia Elliott MD Diabetes mellitus without complication ([facility]/HCC) (Primary Dx); Primary hypertension; Colitis 07/23/2024 Travel 07/15/2024 Travel 07/14/2024 Telephone [facility] [address] [place] [address] Obdulia Elliott MD 07/14/2024 Telephone [facility] [address] [place] [address] Obdulia Elliott MD Med Refill from Last [...] 08/25/2024 11:22 AM EST Plan of Treatment Health Maintenance Due Date [...] - PCV) 2003 COVID-19 Vaccine ( - 2023- season) 2024 01/16/2021, 12/26/2020 SDOH Screening 08/14/2024 08/14/2023 Diabetes: Hemoglobin A1C 09/27/2024 024, 01/07/2024, 11/22/2023, Additional history exists Mammogram 09/27/2024 09/27/2022, 09/27/2022 Depression Screening 02/19/2025 02/20/2024, 02/20/20 24 Diabetes: Urine Protein Screening 02/19/2025 02/20/2024, 09/13/2021, [...] 2:59 PM EST History of hepatitis C POCT GLYCATED HEMOGLOBIN, TOTAL Routine 06/29/2024 10:01 AM EST Diabetes mellitus without complication (CMS/HCC) ALBUMIN, RANDOM URINE W/CREATININE Routine 02/20/2024 11:40 [...] EST Narrative 08/29/2024 9:33 PM EST ? [facility] ?[address] ?[place] [address] ? Magnetic Resonance Report ? Signed ? Patient: Mai Crow ?MR#: [id number] ?? 4 ? : 1985 ?Acct:[id number] ? Age/Sex: 39 / F ?ADM Date: 08/29/24 ? Loc: HO.MRI ? Attending Dr: Obdulia Elliott MD ? Ordering Physician: Obdulia Elliott MD ?? Date of Service: 08/29/24 ?? Procedure(s): MR lumbar spine wo con ?? Accession Number(s): [id number] ? cc: Obdulia Elliott MD ? CLINICAL HISTORY: chronic back pain radiating to left side abdomen and leg ? MR lumbar spine without contrast ? Comparison: MR - MRI LUMBAR SPINE 35994 - 12/30/18 15:01 EDT ? Findings: ?? [...] by Edilson Sparks MD in OV> ? 08/29/242 ? DD/ 30 ? TD/TT: 08/29/242130 ? Advisor To Command In Combat: ? Procedure Note Donfrancis, Image - 08/29/2024 [place] [address] Magnetic Resonance Report Signed Patient: Javy Crow#: [id number] 4 : 1985Acct:[id number] Age/Sex: 39 / FADM Date: 08/29/24 Loc: HO.MRI Attending Dr: Obdulia Elliott MD Ordering Physician: Obdulia Elliott MD Date of Service: 08/29/24 Procedure(s): MR lumbar spine wo con Accession Number(s): [id number] cc: Obdulia Elliott MD CLINICAL HISTORY: chronic back pain radiating to left side abdomen and leg MR lumbar spine without contrast Comparison: MR - MRI LUMBAR SPINE 13889 - 12/30/18 15:01 EDT Findings: The alignment [...] in OV> 08/29/242131 DD/ 30 TD/TT: 08/29/242130 Advisor To Command In Combat: us Obdulia Elliott MD IMG MRI PROCEDURES Edited Res ult - Final * XR Thoracic Spine 2 Views (08/28/2024 12:54 PM EST) Anatomical Region Laterality Modality Spine, T-spine Radiographic Dilma ging 08/28/2024 12:5 4 PM EST Narrative 08/28/2024 12:55 PM EST ? [facility] ?[address] ?[place] [address] ?XRay Report ? Signed ? Patient: Normandin,Mai ?MR#: [id number] ?? 4 ? : 1985 ?Acct:[id number] ? Age/Sex: 39 / F ?ADM Date: 02/27/25 ? Loc: HO.XRAY ? Attending Dr: Halima ALONZO ? Ordering Physician: Halima Breen ?? Date of Service: 08/27/24 ?? Procedure(s): XR thoracic spine 2V ?? Accession Number(s): [id number] ? cc: Obdulia Elliott MD; Halima Breen [...] DD/ 1254 ? TD/TT: 08/28/24 1254 ? Advisor To Command In Combat: ? Procedure Note Quinn, Cruz - 08/28/[address] [address] XRay Report Signed Patient: Javy Crow#: [id number] 4 : 1985Acct:[id number] Age/Sex: 39 / FADM Date: 08/27/24 Loc: MICHELLE Attending Dr: Halima ALONZO Ordering Physician: Halima Breen Date of Service: 08/27/24 Procedure(s): XR thoracic spine 2V Accession Number(s): [id number] cc: Obdulia Elliott MD; Halima Breen CLINICAL [...] 08/28/24 1255 DD/ 1254 TD/TT: 08/28/24 1254 Advisor To Command In Combat: Result [facility] External Provider IMG XR PROCEDURES Final Result * Hepatitis C Viral RNA, Quantitative, Real-Time PCR (08/27/2024 2:59 PM EST) Pathologist [facility] Hepatitis C Viral Load <15 NOT DETECTED NOT DETECTED IU/mL [facility] HCV Log PCR <1.18 NOT DETECTED NOT DETECTED Log IU/mL [facility] Comment:For additional infor solitario, please refer tohttp://education.[employer]/faq/WJY98i2(This link is being provided for informational/educational purposes only.)THIS TEST WAS PERFORMED AT:[facility] [place] [phone] CORTES MD 08/27/2024 2:59 PM EST 08/28/2024 11:18 AM EST Result [facility] Obdulia Elliott MD LAB BLOOD ORDERABLES Final Re sult Performing Organization Address [facility] de Phone Number [facility] [address] [place] [phone] * (ABNORMAL) Hepatitis C Antibody with Reflex to HCV, RNA, Quantitative, Real- Time PCR (08/27/2024 2:59 PM EST) Pathologist [facility] Hepatitis C Antibody Reactive( A) Nonreactive [facility] Comment:Presumptive evidence of antibodies to HCV. Blood Venous blood specimen / Unknown 08/27/2024 2:59 PM EST 08/27/2024 2:59 PM EST Result [facility] Obdulia Elliott MD LAB BLOOD ORDERABLES Final Re sult Performing Organization Address [facility]/State/ZIP Co de Phone Number [facility] [address] [place] [address] [phone] * Hepatitis B Surface Antibody, Qualitative (08/27/2024 2:59 PM EST) Pathologist [facility] ~Hepatitis B Surface Antibody REACTIVE Nonreactive [facility] Comment:REACTIVE: > 11.99 mI U/mL Blood Venous blood specimen / Unknown 08/27/2024 2:59 PM EST 08/27/2024 2:59 PM EST Obdulia Elliott MD LAB BLOOD ORDERABLES Final Re sult [facility] [address] [place] [phone] * (ABNORMAL) POCT HGB A1C (06/29/2024 10:01 AM EST) Pathologist [facility] Hemoglobin A1C 10.2(A) 4.0 - 6.0 % QC Media Lot # [id number] Lot# Expiration Date Blood 06/29/2024 10:0 1 AM EST Florinda Dominique HEMMING AND TACKING MACHINE OPERATOR POINT OF CARE TEST ENTER/EDIT ORDERABLES Final Result * (ABNORMAL) Albumin, Random Urine W/Creatinine (02/20/2024 11:40 AM EDT) Pathologist [facility] Creatinine, Urine 82.08 mg/dL [facility] Microalbumin Urine 50.0 mg/L H [facility] Microalbum Creatinine Ratio Ur 60.9(H) <30 ug/mg cr [facility] Comment:Albumin/Creatinine R atio Reference Ranges: Normal: < 30 ug/mg creatinine Microalbuminuria: 30 - 300 ug/mg creatinineClinical Albuminuria: > 300 ug/mg creatinine Urine (Urine, Random) 02/20/2024 11:40 AM EDT 02/20/2024 2:11 PM EDT us Obdulia Elliott MD LAB URINE ORDERABLES Final Re sult [facility] [address] [place] [address] [phone] * (ABNORMAL) Lipid Panel, Standard (02/20/2024 11:38 AM EDT) Triglycerides 387(H) <150 mg/dL [facility] Comment:Desirable Triglyceri de: less than 150 mg/dLBorderline High Triglyceride 150-199 mg/dLHigh Triglyceride: 200-499 mg/dLVery High Triglyceride: greater than or equal to 5OO mg/dL Cholesterol 284(H) <200 mg/dL [facility] Comment:Desirable Cholestero l: less than 200 mg/dLBorderline High Cholesterol: 200-239 mg/dLHigh Cholesterol: greater than 239 mg/dL LDL Cholesterol Calculated 168(H) <100 mg/dL [facility] Comment:Desirable LDL: less than 100 mg/dLNear Optimal/Above Optimal LDL: 110- 129 mg/dLBorderline High LDL: 130-159 mg/dLHigh LDL: 160-189 mg/dLVery High LDL: greater than or equal to 190 mg/dL HDL Cholesterol 39(L) >40 mg/dL [facility] Comment:Desirable HDL: great er than 40 mg/dL Note: This HDL assay may give artificially low results in patients with liver disease. Blood Venous blood specimen / Unknown 02/20/2024 11:38 AM EDT 02/20/2024 2:14 PM EDT us Obdulia Elliott MD LAB BLOOD ORDERABLES Final Re sult [facility] [address] [place] [address] [phone] * (ABNORMAL) Image-Guided Pap with Age-Based Screening Protocols (10/23/2022 11:23 AM EDT) Comment [facility] Comment: This order for age-based cervical cancer and STI screening follows ACOG guidelines(PB 168, 140, HJP674). See individual assays for performing site location. Clinical Information: None given [facility] LMP: NONE GIVEN [employer] [facility] Prev. PAP: NONE GIVEN [employer] [facility] Prev. BX: YES [facility] [employer] [facility] SOURCE: None given [employer] Statement Of Adequacy: [employer] Comment: Satisfactory for evaluation. Endocervical/transformation zone component absent. Interpretation/ Result: Negative for intraepithelial lesion or malignancy. [employer] COMMENT: This Pap test has been evaluated with computer assisted technology. [employer] [facility] [place] [employer]: [employer] Comment: ZAMORA, CT(ASCP) CT screening location: [address] ??[phone] Review Cytotechnologis t: [employer] [facility] [place] [facility] Comment: DCR, CT(ASCP) CT screening location: [address] ??[phone] (Always Message) [employer] Comment: EXPLANATORY NOTE: The Pap is a [...] information. HPV nRNA E6/E7 Detected(A) Not Detected [employer] Comment: Methodology: Devulcanizer Head-Mediated Amplification This assay detects E6/E7 viral messenger RNA (mRNA) from 14 high-risk HPV types (16,18,31,33,35,39,45,51,52,56,58,59,66,68). Cervical sources are required for HPV testing. If a vaginal source from a patient who has had a total hysterectomy with removal of cervix was submitted, please contact the testing laboratory for alternative testing options. For additional information, please refer to http://education.[employer]/faq/PHZ728c2 (This link if provided for information/ educational purposes only.) Specimen from uterine cervix (specimen) 10/23/2022 11:23 AM EDT 10/24/2022 7:46 AM EDT Obdulia Elliott MD LAB BLOOD ORDERABLES Final Re sult Performing Organization Address [facility] de Phone Number [facility] [address], [place] [address] [employer] [facility] [place] [facility] [address] [place] [address] * HPV Genotypes 16,18/45 (10/23/2022 11:23 AM EDT) HPV 16 RNA NOT DETECTED NOT DETECTED [facility] [place] [facility] HPV 18/45 RNA NOT DETECTED NOT DETECTED [facility] [place] [facility] Comment: Methodology: Devulcanizer Head Mediated Amplification Cervical sources are required for HPV testing. If a vaginal source from a patient who has had a total hysterectomy with removal of cervix was submitted, please contact the testing laboratory for alternative testing options. 10/23/2022 11:2 3 AM EDT 10/24/2022 7:46 AM EDT Obdulia Elliott MD LAB CYTOLOGY ORDERABLES Final Result Performing Organization Address [facility] de Phone Number [facility] [address], [place] [address] [facility] [place] [facility] [address] [place] [address] * BI Mammogram Diagnostic Tomosynthesis Right (09/27/2022 8:25 AM EDT) Anatomical Region Laterality Modality Breast Right Mammography 09/27/2022 8:25 AM EDT Narrative 09/27/2022 10:17 AM EDT ? [facility] ? [address] ?[place] [address] ? Mammography Report ? Signed ? Patient: Normandin,Mai ?MR#: [id number] ?? 4 ? : 1985 ?Acct:[id number] ? Age/Sex: 37 / F ?ADM Date: 03/30/23 ? Loc: HO.MAMMO ? Attending Dr: Obdulia Elliott MD ? Ordering Physician: Obdulia Elliott MD ?Results: 3.6MProbably Benign Finding - Short 6 M F/U ?? Suggested ? Date of Service: 09/27/22 ?Follow Up: Surgical Consult ? Procedure(s): MM tomosynthesis diagnostic RT ?? Accession Number(s): [id number] ? cc: Obdulia Elliott MD ? EXAMINATION: [...] ?09/27/22 1014 ? DD/ ? TD/TT: ? Advisor To Command In Combat: SALGADO ? Procedure Note Donotuseinterpreter, Image - 09/27/2022 [facility] [address] [place] [address] [place] [address] Mammography Report Signed Patient: Javy Crow#: [id number] 4 : 1985Acct:[id number] Age/Sex: 37 / FADM Date: 09/27/22 Loc: HO.MAMMO Attending Dr: Obdulia Elliott MD Ordering Physician: Obdulia Elliott MD Results: 3.6MProbably Benign Finding - Short 6 M F/U Suggested Date of Service: 09/27/22Follow Up: Surgical Consult Procedure(s): MM tomosynthesis diagnostic RT Accession Number(s): [id number] cc: Obdulia Elliott MD EXAMINATION: MM DIAGNOSTIC [...] in OV> 09/27/22 1014 DD/ 0825 TD/TT: Advisor To Command In Combat: NAOMI [facility] External Provider IMG BI PROCEDURES Final Result from Last 3 Months or Most Recently Relevant to Health Maintenance Insurance [facility] MEDICARE ADVANTAGE HMO * Guarantor: Mai Crow Account Type Relation to Patient Date of Phone Billing Address Personal/Family Self [address] [facility] [place] [id number] Care Teams Wine Maker Relationship Specialty Start Date End Date Obdulia Elliott MD [address] [place] [address] [place] [address] PCP - General Family Medicine 07/01/18
--- OUTSIDE RECORDS SUMMARY | 2024-10-09 13:25 | XMS_ITS | Clinical Summary ---
Author Organization [facility] ity Address [address] [place] [address] Care Team Providers Care Irrigation Foreman Name Role Phone Unavailable Primary Care Provider [...] Screening: P ap Smear 2005 COVID-19 Vaccine (2023-2 5 season) 2024 Influenza Vaccine (Season Ended) 2025 HIB Vaccines Aged Out No longer eligi [...] age to complete this topic Meningococcal B Vaccine Aged Out No l onger eligible based on patient's age to complete [...]
--- OUTSIDE RECORDS SUMMARY | 2024-10-09 13:25 | XMS_ITS | Encounter Summary ---
Author Organization [employer] Address [address] [facility] 7t [place] [address] Care Team Providers Care Practice Manager Name Role Phone Obdulia Elliott MD Primary Care Provider [phone] Reason for Visit * Reason Comments Med Refill Encounter Details Date Type Department Care Team ([facility] st Contact Info) Description 02/14/2023 Refill [facility] [address] [place] [address] Florinda Thomas FNP Social History Tobacco Use [...] as of this encounter Plan of Treatment Not on file documented as of this encounter Visit Diagnoses Not on filedocumented in this encounter Care Teams Practice Manager Relationship Specialty Start Date End Date Obdulia Elliott MD [address] [facility] [place] [address] PCP - General Family Medicine 07/01/18 documented as of this encounter
--- OUTSIDE RECORDS SUMMARY | 2024-10-09 13:25 | XMS_ITS | Encounter Summary ---
Author Organization [employer] Address [address] [facility] [address] [place] [address] Care Team Providers Care Change Management Coordinator Name Role Phone Obdulia Elliott MD Primary Care Provider [phone] Reason for Visit * Reason Onset Date Comments Med Refill 08/26/2024 Encounter Details Date Type Department Care Team (Late st Contact Info) Description 08/26/2024 Telephone [facility] [address] [place] [address] Obdulia Elliott MD [address] [place], [place] [phone] Med Refill Social History Tobacco Use Types [...] 5-325 MG tablet To be sent to: [id number] [place], [place] - [address] [place] [address] AT [facility] documented in this encounter Plan of Treatment Not on file documented as of this encounter Visit Diagnoses Not on filedocumented in this encounter Additional Health Concerns Assessment Noted Time PHQ-9 Depression Total Score: 8 02/20/20 24 11:38 AM EDT documented as of this encounter Care Teams Change Management Coordinator Relationship Specialty Start Date End Date Obdulia Elliott MD [address] [place] [address] [place] [address] PCP - General Family Medicine 07/01/18 documented as of this encounter
--- OUTSIDE RECORDS SUMMARY | 2024-10-09 13:25 | XMS_ITS | Encounter Summary ---
Author Organization [employer] Address [address] [place] [address] [address] [place] [address] Care Team Providers Care Stable Hand Name Role Phone Obdulia Elliott MD Primary Care Provider [phone] Reason for Visit * Reason Comments Med Refill Encounter Details Date Type Department Care Team ([facility] Contact Info) Description 03/21/[address] [facility] [address] [place] [address] Marci Valiente MD [address] [place] [address] Vaginal discharge Social History Tobacco Use Types [...] infective documented in this encounter Care Teams Stable Hand Relationship Specialty Start Date End Date Obdulia Elliott MD [address] [place] [address] PCP - General Family Medicine 07/01/18 documented as of this encounter
--- OUTSIDE RECORDS SUMMARY | 2024-10-09 13:26 | XMS_ITS | Encounter Summary ---
Author Organization [employer] Address 75 [facility] 7 [place] [address] Care Team Providers Care Flare Man Name Role Phone Obdulia Elliott MD Primary Care Provider [phone] Reason for Visit * Reason Onset Date Comments Nurse Triage 04/22/2024 Encounter Details Date Type Department Care Team ([facility] st Contact Info) Description 04/22/2024 Telephone [facility] MEDICINE [address] [place] [address] Obdulia Elliott MD [address] [place], [place] [phone] Nurse Triage Social History Tobacco Use Types [...] agrees to try this. ASK apt in [facility] today at 220pm. Unable to check [...] documented as of this encounter Care Teams Flare Man Relationship Specialty Start Date End Date Obdulia Elliott MD [address] [place] [address] PCP - General Family Medicine 07/01/18 documented as of this encounter
--- OUTSIDE RECORDS SUMMARY | 2024-10-09 13:26 | XMS_ITS | Encounter Summary ---
Author Organization [employer] Address 75 [facility] 7t [place] [address] Care Team Providers Care Human Resources Manager Manufacturing Name Role Phone Obdulia Elliott MD Primary Care Provider [phone] Encounter Details Date Type Department Care Team ([facility] Contact Info) Description 04/03/2024 Orders Only [facility] CHC MED & PEDS [address] [place], [place] [phone] Obdulia Elliott MD 505 [place], [place] [phone] Social History Tobacco Use Types Packs/Day Years [...] documented as of this encounter Care Teams Human Resources Manager Manufacturing Relationship Specialty Start Date End Date Obdulia Elliott MD [address] [place] [address] PCP - General Family Medicine 07/01/18 documented as of this encounter
--- OUTSIDE RECORDS SUMMARY | 2024-10-09 13:26 | XMS_ITS | Encounter Summary ---
Author Organization [employer] Address 75 [facility] 7 [place] [address] Care Team Providers Care Cushion Worker Name Role Phone Obdulia Elliott MD Primary Care Provider [phone] Reason for Visit * Reason Onset Date Comments Med Refill 05/18/2024 Medication Question 05/18/2024 Encounter Details Date Type Department Care Team ([facility] st Contact Info) Description 05/18/2024 Telephone [facility] MEDICINE [address] [place], [place] [phone] bOdulia Elliott MD [address] [place], [place] [phone] Med Refill; Medication Question Social History Tobacco [...] Pt is advised no apts available in [facility] but, offered to come to [facility] in [facility] today open till 4pm to be [...] - You become worse [facility] (supporting Obdulia Elliott [...] 3:24 PM EST Medication was sent to [facility] #[id number] on 05/07/24 #270. * Telephone Encounter [...] documented as of this encounter Care Teams Cushion Worker Relationship Specialty Start Date End Date Obdulia Elliott MD [address] [place] [address] PCP - General Family Medicine 07/01/18 documented as of this encounter
--- OUTSIDE RECORDS SUMMARY | 2024-10-09 13:26 | XMS_ITS | Encounter Summary ---
Author Organization [employer] Address 75 [facility] 7t [place] [address] Care Team Providers Care Bag Sealer Name Role Phone Odbulia Elliott MD Primary Care Provider [phone] Encounter Details Date Type Department Care Team ([facility] st Contact Info) Description 07/14/2024 Telephone [facility] MEDICINE [address] [place] [address] Obdulia Elliott MD [address] [facility] [address] [place], [place] [phone] Social History Tobacco Use Types Packs/Day Years [...] documented as of this encounter Care Teams Bag Sealer Relationship Specialty Start Date End Date Obdulia Elliott MD 505 [place] [address] PCP - General Family Medicine 07/01/18 documented as of this encounter
--- OUTSIDE RECORDS SUMMARY | 2024-10-09 13:26 | XMS_ITS | Encounter Summary ---
Author Organization [employer] Address 75 [facility] 7 [place] [address] Care Team Providers Care Program Evaluation Consultant Name Role Phone Obdulia Elliott MD Primary Care Provider [phone] Reason for Visit * Reason Onset Date Comments Med Refill 04/13/2024 Encounter Details Date Type Department Care Team ([facility] st Contact Info) Description 04/13/2024 Refill [facility] CH[facility] MED & PEDS [address] [place] [address] Obdulia Elliott MD 505 [place] [address] Chronic bilateral low back pain without sciatica [...] documented as of this encounter Care Teams Program Evaluation Consultant Relationship Specialty Start Date End Date Obdulia Elliott MD [address] [place] [address] PCP - General Family Medicine 07/01/18 documented as of this encounter
--- OUTSIDE RECORDS SUMMARY | 2024-10-09 13:26 | XMS_ITS | Encounter Summary ---
Author Organization [employer] Address 75 [facility] 7 [place] [address] Care Team Providers Care Marketer Name Role Phone Obdulia Elliott MD Primary Care Provider [phone] Reason for Visit * Reason Onset Date Comments Med Refill 04/21/2024 Encounter Details Date Type Department Care Team ([facility] st Contact Info) Description 04/21/2024 Refill [facility] CHC MED & PEDS 505 [place] [address] Obdulia Elliott MD 505 [place] [address] Chronic bilateral low back pain without sciatica [...] documented as of this encounter Care Teams Marketer Relationship Specialty Start Date End Date Obdulia Elliott MD [address] [place] [address] PCP - General Family Medicine 07/01/18 documented as of this encounter
--- OUTSIDE RECORDS SUMMARY | 2024-10-09 13:26 | XMS_ITS | Encounter Summary ---
Author Organization [employer] Address 75 [facility] 7 [place] [address] Care Team Providers Care Syrup Maker Cook Name Role Phone Obdulia Elliott MD Primary Care Provider [phone] Reason for Visit * Reason Onset Date Comments Med Refill 06/05/2024 Encounter Details Date Type Department Care Team (Late st Contact Info) Description 06/05/2024 Telephone [facility] MEDICINE [address] [place] [address] Obdulia Elliott MD 505 [place], [place] [phone] Med Refill Social History Tobacco Use Types [...] 4 MG tablet To be sent to: [facility] #[id number] documented in this encounter Plan of Treatment Not on file documented as of this encounter Visit Diagnoses Not on filedocumented in this encounter Additional Health Concerns Assessment Noted Time PHQ-9 Depression Total Score: 8 02/20/20 24 11:38 AM EDT documented as of this encounter Care Teams Syrup Maker Cook Relationship Specialty Start Date End Date Obdulia Elliott MD [address] [place] [address] PCP - General Family Medicine 07/01/18 documented as of this encounter
--- OUTSIDE RECORDS SUMMARY | 2024-10-09 13:26 | XMS_ITS | Encounter Summary ---
Author Organization [employer] Address [address] [place] [address] 7 [place] [address] Care Team Providers Care Sole Scraper Name Role Phone Obdulia Elliott MD Primary Care Provider [phone] Reason for Visit * Reason Comments Med Change Request Encounter Details Date Type Department Care Team ([facility] Contact Info) Description 03/23/2024 Refill [facility] CHC MED & PEDS [address] [place], [place] [phone] Obdulia Elliott MD 505 [place] [address] Social History Tobacco Use Types Packs/Day Years [...] documented as of this encounter Care Teams Sole Scraper Relationship Specialty Start Date End Date Obdulia Elliott MD [address] [place] [address] PCP - General Family Medicine 07/01/18 documented as of this encounter
--- OUTSIDE RECORDS SUMMARY | 2024-10-09 13:26 | XMS_ITS | Encounter Summary ---
Author Organization [employer] Address 75 [facility] 7t [place] [address] Care Team Providers Care Scientist Propagator Name Role Phone Obdulia Elliott MD Primary Care Provider [phone] Encounter Details Date Type Department Care Team (Late st Contact Info) Description 02/15/2024 Orders Only [facility] MEDICINE 230 [place], [place] [phone] Amy Corado MD 230 [place], [place] [phone] Social History Tobacco Use Types Packs/Day Years [...] documented as of this encounter Care Teams Scientist Propagator Relationship Specialty Start Date End Date Obdulia Elliott MD 505 [place] [address] PCP - General Family Medicine 07/01/18 documented as of this encounter
--- OUTSIDE RECORDS SUMMARY | 2024-10-09 13:26 | XMS_ITS | Encounter Summary ---
Author Organization [employer] Address [address] [place] [address] 7 [place] [address] Care Team Providers Care Student Services Director Name Role Phone Obdulia Elliott MD Primary Care Provider [phone] Reason for Visit * Reason Comments Med Refill Encounter Details Date Type Department Care Team ([facility] Contact Info) Description 11/23/2022 Refill [facility] CHC MED & PEDS [address] [place] [address] Obdulia Elliott MD [address] [place] [address] Social History Tobacco Use Types Packs/Day Years [...] on filedocumented in this encounter Care Teams Student Services Director Relationship Specialty Start Date End Date Obdulia Elliott MD [address] [place] [address] PCP - General Family Medicine 07/01/18 documented as of this encounter
--- OUTSIDE RECORDS SUMMARY | 2024-10-09 13:26 | XMS_ITS | Encounter Summary ---
Author Organization [employer] Address 75 [facility] 7 [place] [address] Care Team Providers Care Crown Pouncer Name Role Phone Obdulia Elliott MD Primary Care Provider [phone] Reason for Visit * Reason Onset Date Comments Med Refill 07/14/2024 Encounter Details Date Type Department Care Team (Late st Contact Info) Description 07/14/2024 Telephone [facility] MEDICINE [address] [place] [address] Obdulia Elliott MD 505 [place], [place] [phone] Med Refill Social History Tobacco Use Types [...] documented as of this encounter Care Teams Crown Pouncer Relationship Specialty Start Date End Date Obdulia Elliott MD [address] [place] [address] PCP - General Family Medicine 07/01/18 documented as of this encounter
--- OUTSIDE RECORDS SUMMARY | 2024-10-09 13:26 | XMS_ITS | Encounter Summary ---
Author Organization [employer] Address 75 [facility] 7 [place] [address] Care Team Providers Care Database Designer Name Role Phone Obdulia Elliott MD Primary Care Provider [phone] Reason for Visit * Reason Onset Date Comments Med Refill 04/17/2024 Encounter Details Date Type Department Care Team ([facility] st Contact Info) Description 04/17/2024 Refill [facility] CHC MED & PEDS 505 [place] [address] Obdulia Elliott MD [address] [place] [address] Chronic bilateral low back pain without sciatica [...] documented as of this encounter Care Teams Database Designer Relationship Specialty Start Date End Date Obdulia Elliott MD [address] [place] [address] PCP - General Family Medicine 07/01/18 documented as of this encounter
== END 2024-10-09 13:53 | disposition home or self-care (01) ==
LOC: HO.HGI 12:54
PROVIDERS: PCP Internal Medicine; Visit Provider Internal Medicine
DX: R10.12 Left upper quadrant pain (principal)
CPT/HCPCS: 20553; 99214

== ENCOUNTER → 2024-10-09 12:53 | Outpatient (BNVA) | payer MEDICARE, MEDICAID, SELFPAY | PROVIDERS: PCP Internal Medicine; Visit Provider Internal Medicine | DX: R10.9 Unspecified abdominal pain (principal); K52.9 Noninfective gastroenteritis and colitis, unspecified | CPT/HCPCS: 20553; 99212 ==

== ENCOUNTER 2025-02-10 16:31 | Outpatient (REF) | payer MEDICARE, MEDICAID, SELFPAY ==
--- NOTE | ~2025-02-10 | CT_ITS ---
CLINICAL HISTORY: lung nodule Exam: CT chest without IV contrast Comparison: CT/FL/SR - CT CHEST WITHOUT IV CONTRAST - 06/19/24 18:45 EST Findings: No acute infiltrates, pleural effusion or pneumothorax. Central airway is patent. Right middle lobe 3 mm perifissural nodule series 4, image 64 is stable. Stable 3 mm ground-glass nodule left upper lobe anterolaterally on image 52. Also stable several pulmonary micronodules bilaterally, for example right middle lobe lateral micronodule on image 75. Previously seen nodular ground-glass opacities resolved. No new pulmonary nodule. Heart, great vessels and mediastinum are unremarkable. No lymphadenopathy. No actionable thyroid nodule. Imaged lower neck, chest wall and upper abdomen are unremarkable. Degenerative changes of the thoracic spine. No acute osseous abnormality. Impression: Stable small pulmonary nodules up to 3 mm, considered benign. This document has been electronically signed by: Alissa Weathers MD on 02/11/2025 17:05:14
--- OUTSIDE RECORDS SUMMARY | 2025-02-10 16:33 | XMS_ITS | Clinical Summary ---
Author Organization [facility] Address [address] [place] [address] Care Team Providers Care Bodybuilder Name Role Phone Unavailable Primary Care Provider [...] Vaccine ( - 2023-2 5 season) 2024 Depression Screening 07/01/2024 Influenza Vaccine (#1) 2025 HIB Vaccines Aged Out No longer [...] 5 Years) and At-Risk Patients (6 to 49 Years) Aged Out No longer eligible b ased on patient's age to complete this topic RSV Immunization Patients Un michele 20 months Aged Out No longer eligible b ased on patient's age to complete this topic Varicella Vaccines Aged Out No longer eligible based on patient's age to complete this topic
== END 2025-02-10 16:32 | disposition home or self-care (01) ==
LOC: HO.CT 16:31
PROVIDERS: PCP Pediatrics; Visit Provider Pediatrics
DX: R91.1 Solitary pulmonary nodule (principal)
CPT/HCPCS: 71250

== ENCOUNTER → 2025-02-10 16:32 | Outpatient (BNV) | payer MEDICARE, MEDICAID, SELFPAY | PROVIDERS: PCP Pediatrics; Visit Provider Radiology Diagnostic Radiology | DX: R91.8 Other nonspecific abnormal finding of lung field (principal) | CPT/HCPCS: 71250 ==

== ENCOUNTER 2025-05-17 11:02 | Outpatient (REF) | payer MEDICARE, MEDICAID, SELFPAY ==
[2025-05-17 14:10] LABS: MANUAL DIFF FLAG NO
[2025-05-17 14:18] LABS: Hematocrit 43.4 % (37.0-47.0); Hemoglobin 14.6 g/dl (12.0-16.0); Imm Gran Abs Auto 0.09 X10*3/uL (0.00-0.03); Imm Gran Pct Auto 1.0 % (0.0-0.4); Lymphocytes Absolute Auto 2.7 X10*3/uL (1.2-4.9); Mean Corpuscular HGB Conc 33.6 g/dl (31.0-35.0); Mean Corpuscular Hemoglobin 30.5 pg (27.0-33.0); Mean Corpuscular Volume 90.6 fL (80.0-98.0); NRBC Abs Auto 0.000 X10*3/uL (0.0-0.012); NRBC Pct Auto 0.0 /100WBC (0.0-0.2); Platelet Count 278 X10*3/uL (160-400); Red Blood Count 4.79 X10*6/uL (4.20-5.50); White Blood Count 9.1 X10*3/uL (4.8-10.8)
[2025-05-17 14:46] LABS: Alanine Aminotransferase 29 U/L (0-31); Albumin Level 4.6 g/dL (3.5-5.0); Alkaline Phosphatase 90 U/L (39-117); Anion Gap 13 (12-20); Aspartate Amino Transferase 32 U/L (5-31); Blood Urea Nitrogen 9 mg/dL (9-16); Calcium 9.1 mg/dL (8.4-10.2); Carbon Dioxide 24 mmol/L (22-29); Chloride 103 mmol/L (96-108); Cholesterol 300 mg/dL (<200); Estimated Glomerular Filt Rate > 60; HDL Cholesterol 37 mg/dL (>40); Magnesium 2.1 mg/dL (1.6-2.6); Potassium 3.9 mmol/L (3.3-5.1); Sodium 136 mmol/L (135-145); Total Protein 7.4 g/dL (6.5-8.0); Triglycerides 434 mg/dL (<150)
[2025-05-17 14:56] LABS: Microalbum/Creatinine Ratio Ur 46.0 ug/mg cr (<30)
[2025-05-17 15:04] LABS: Folate 4.9 ng/mL (> or = 4.0); Vitamin B12 190 pg/mL (200-900)
== END 2025-05-17 11:03 | disposition home or self-care (01) ==
LOC: HO.CHCLDS 11:02
PROVIDERS: Visit Provider Pediatrics
DX: E11.65 Type 2 diabetes mellitus with hyperglycemia (principal); E87.6 Hypokalemia; K52.9 Noninfective gastroenteritis and colitis, unspecified
CPT/HCPCS: 36415; 80048; 80061; 80076; 82043; 82570; 82607; 82746; 83735; 84443; 85025